=== PATIENT | male | born 1975 | race Caucasian/White ===

== ENCOUNTER → 2020-04-25 09:58 | Outpatient (BNVA) | payer OTHER, SELFPAY | PROVIDERS: PCP Internal Medicine; Visit Provider Nurse Practitioner Family | DX: I25.10 Atherosclerotic heart disease of native coronary artery without angina pectoris (principal); I25.5 Ischemic cardiomyopathy; E78.5 Hyperlipidemia, unspecified; I10 Essential (primary) hypertension; Z95.1 Presence of aortocoronary bypass graft; Z95.810 Presence of automatic (implantable) cardiac defibrillator; Z79.51 Long term (current) use of inhaled steroids; Z79.82 Long term (current) use of aspirin; Z87.891 Personal history of nicotine dependence | CPT/HCPCS: 99214 ==

== ENCOUNTER 2020-06-10 12:53 | Outpatient (REF) | payer OTHER, SELFPAY | END 2020-06-10 12:54 | disposition home or self-care (01) | LOC: HO.LAB 12:53 | PROVIDERS: Visit Provider Internal Medicine | DX: Z20.828 Contact with and (suspected) exposure to other viral communicable diseases (principal) | CPT/HCPCS: C9803; U0003 ==

== ENCOUNTER → 2020-07-21 13:07 | Outpatient (BNVA) | payer OTHER, SELFPAY | PROVIDERS: PCP Internal Medicine; Visit Provider Internal Medicine Cardiovascular Disease ==

== ENCOUNTER → 2020-10-13 09:38 | Outpatient (REF) | payer OTHER, SELFPAY ==
--- NOTE | 2020-10-13 09:42 | CA_ITS ---
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 The visually estimated ejection fraction is between 35-40%. - Evidence suggests grade II (moderate) diastolic dysfunction. - Slight diastolic mitral regurgitation suggestive of elevated filling pressures. Findings Procedure Information Contrast agent, definity, is being given per protocol without apparent complications. Left Ventricle Normal left ventricular cavity size. There is normal left ventricular wall thickness. The left ventricular systolic function is moderately decreased. The visually estimated ejection fraction is between 35-40%. There is moderate global hypokinesis. E/E prime ratio is between 8 and 15 consistent with indeterminate filling pressures. Evidence suggests grade II (moderate) diastolic dysfunction. Right Ventricle Normal right ventricular cavity size. There is low normal right ventricular systolic function. Atria The left atrium is mildly dilated. The right atrium is normal in size. Aortic Valve There is a normal trileaflet aortic valve. There is no aortic valve stenosis. There is no aortic valve regurgitation. Mitral Valve The mitral valve appears normal. There is trace mitral valve regurgitation. There is no mitral valve stenosis. Slight diastolic mitral regurgitation suggestive of elevated filling pressures. Pulmonic Valve The pulmonic valve was not well visualized. Tricuspid Valve Normal tricuspid valve structure. There is trace tricuspid valve regurgitation. The pulmonary artery systolic pressure is normal. Great Vessels The aortic annulus, sinuses of valsalva, and asc aorta are normal in size. Venous The inferior vena cava is normal in size and collapses greater than 50% with inspiration. Pericardium/Pleural There is no evidence of pericardial effusion. Prior Study Comparison Changes noted compared to prior study dated: 08/22/2019. Inferior segments described to be akinetic in the prior study. In current study, appears rather globally hypokinetic. Measurements 2D Linear Measurements IVSd: 0.94 0.6-0.9/0.6-1.0 cm LVIDd: 4.54 3.9-5.3/4.2-5.9 cm LVIDd Index: 2.26 2.4-3.2/2.2-3.1 cm/m2 LVIDs: 3.70 2.0-3.6 cm LVPWd: 1.04 0.7-1.1 cm Ao Root: 3.30 2.1-3.5 cm LA Diam: 3.50 2.7-3.8/3.0-4.0 cm LAIDs Index: 1.74 1.5-2.3 cm/m2 LV Mass: 190.54 67-162/88-224 g LV Mass Index: 94.79 43-95/49-115 g/m2 LVOT Diam: 2.00 3.0+(-)1.3 cm 2D Systolic Function EF 4C: 39.60 >55% EF 2C: 47.20 >55% EF BiP: 40.70 >55% Mitral Valve MV Pk E: 1.12 MV PK A: 0.53 MV Decel Time: 180.00 E/A: 2.10 E'Lateral: 11.50 E'Medial: 6.19 E/E' Med: 18.10 E/E' Lat: 9.70 PHT: 53.00 MVA PHT: 4.15 Decel Howard: 6.23 Aortic Valve AoV Pk Teja: 1.32 AoV Mn Teja: 0.89 AoV VTI: 0.30 AoV Pk Grad: 7.00 Aov Mn Grad: 4.00 RADHA Cont.VTI: 2.16 LVOT LVOT Pk Teja: 0.87 LVOT Mn Teja: 0.61 LVOT VTI: 0.21 LVOT Pk Grad: 3.00 LVOT Mn Grad: 2.00 LVOT Diam: 2.00 LVOT Area: 3.14 Diastolic Function MV Pk E: 1.12 MV Pk A: 0.53 E/A: 2.10 E'Medial: 6.19 E/E' Med: 18.10 E' Laterial: 11.50 E/E' Lat: 9.70 Tricuspid Valve TR Pk Teja: 2.40 TR Pk Grad: 23.00 RA Press: 3.00 RVSP: 26.00 Great Vessels Aorta Ao Root-2D: 3.30 2.0-3.7 cm Ao Asc: 3.20 2.1-3.4 cm Ao Arch: 2.70 Updated in Other Vendor System with Status of Final Bautista Aguila MD electronically signed on 10/13/2020 11:09:38 AM with status of Final
== END ==
LOC: HO.CARD 09:38
PROVIDERS: PCP Internal Medicine; Visit Provider Nurse Practitioner Family
DX: I25.5 Ischemic cardiomyopathy (principal)
CPT/HCPCS: 93306; Q9957

== ENCOUNTER → 2020-10-24 10:29 | Outpatient (BNVA) | payer OTHER, SELFPAY | PROVIDERS: PCP Internal Medicine; Visit Provider Nurse Practitioner Family | DX: I25.10 Atherosclerotic heart disease of native coronary artery without angina pectoris (principal); I10 Essential (primary) hypertension; I25.5 Ischemic cardiomyopathy; E78.5 Hyperlipidemia, unspecified; Z95.1 Presence of aortocoronary bypass graft; Z95.810 Presence of automatic (implantable) cardiac defibrillator | CPT/HCPCS: 99212 ==

== ENCOUNTER 2021-02-03 16:39 | Inpatient (IN) | payer OTHER, SELFPAY ==
--- NOTE | ~2021-02-03 | XR_ITS ---
EXAMINATION: XR SKELETAL SURVEY CLINICAL INFORMATION: Monoclonal protein COMPARISON: None TECHNIQUE: Skeletal survey FINDINGS: Lateral view of the skull does not demonstrate any abnormal lytic or sclerotic lesions. Visualized paranasal sinuses unremarkable. PA film of the chest demonstrates patient is status post median sternotomy. Pacemaker/defibrillator seen from a parasternal approach with power pack along the left lower chest/upper abdominal wall. Right hemithorax unremarkable. There is again noted to be some pleural soft tissue density with scarring and partially loculated pleural effusion. No pneumothorax is seen. Lateral cervical spine study does not demonstrate any abnormal lytic or sclerotic lesions. No abnormal prevertebral soft tissue swelling is seen. There is narrowing of the C5-C6 disc space with marginal spurring. AP and lateral views of the thoracic spine do not demonstrate any evidence of acute fracture. No destructive bony lesions are identified. No lytic or sclerotic lesions. Status post median sternotomy and pacemaker/defibrillator placement. AP and lateral views of the lumbar spine do not demonstrate any evidence of acute fracture, spondylolisthesis, or spondylolysis. There is sacralization of the right side of L5. There is some mild irregularity about the superior endplate of L4 as well as Schmorl's nodes at multiple levels. Pedicles are intact. No destructive lytic or sclerotic lesion. Facet arthropathy is seen at the L4-L5 level. AP film of the pelvis does not demonstrate any evidence of acute fracture or diastases. No destructive bony lesions identified. Sacroiliac joints unremarkable. Sacralization right side of L5. Hip joint spaces maintained. Single view of the right humerus does not demonstrate any evidence of acute fracture or dislocation. No abnormal lytic or sclerotic lesions identified. Glenohumeral joint appears unremarkable. Single view of the left humerus does not demonstrate any evidence of acute fracture or dislocation. No abnormal lytic or sclerotic lesions identified. Single view of the right forearm does not demonstrate any evidence of acute fracture or dislocation. No abnormal sclerotic or lytic lesions. Prominent vascular calcifications are seen. Single view of the left forearm does not demonstrate any evidence of acute fracture or dislocation. No lytic or sclerotic lesions. Vascular calcifications present. AP view of the right femur does not demonstrate any evidence of acute fracture or dislocation. Hip joint spaces maintained. No abnormal lytic or sclerotic lesions. Single view of the left femur does not demonstrate any evidence of acute fracture or dislocation. No abnormal lytic or sclerotic lesions. Single AP view of the right lower leg does not demonstrate any evidence of acute fracture or dislocation. No abnormal lytic or sclerotic lesions. AP view of the left lower extremity does not demonstrate evidence of acute fracture or dislocation. No abnormal lytic or sclerotic lesions. XR/XR bone survey IMPRESSION: No abnormal lytic or sclerotic lesions identified on skeletal survey.
--- NOTE | ~2021-02-03 | CT_ITS ---
EXAMINATION CT CHEST, ABDOMEN AND PELVIS WITH CONTRAST CLINICAL INFORMATION: Right lower quadrant pain COMPARISON: Report from CT abdomen/pelvis dated 08/17/2009 TECHNIQUE: Multidetector volumetric CT imaging of the chest, abdomen and pelvis was obtained after the administration of 100 mL of intravenous Omnipaque 300 without immediate adverse reactions. Coronal and sagittal reformats were reviewed. This CT examination was performed using dose optimization techniques as appropriate, variously including the following: *Automated exposure control *Adjustment of mA and/or kV according to patient size (this includes techniques or standardized protocols for targeted exams where dose is matched to indication/reason for exam; i.e. extremities or head) *Use of iterative reconstruction technique DLP: 994 mGy-cm. FINDINGS: CHEST LUNGS/PLEURA: There is peripheral parenchymal consolidation within the inferolateral left upper lobe with air bronchograms. There is rounded pleural-parenchymal scarring within the left lower lobe posteriorly compatible with round atelectasis. There is a chronic associated small loculated left pleural effusion. There is a 4 mm subpleural nodule within the left upper lobe. There are couple additional pulmonary micronodules which are of doubtful clinical significance. Minimal paraseptal emphysema present within the upper lobes bilaterally. There are mild diffuse bronchial wall thickening. No bronchiectasis. MEDIASTINUM/DAVID: Triple vessel coronary calcifications are present, status post coronary artery bypass grafting. No pericardial effusion. Shotty mediastinal lymph nodes approach 1 cm short axis, favor reactive. CHEST WALL/AXILLA: Subcutaneous cardioverter/defibrillator generator subjacent to the latissimus dorsi, with left parasternal lead subjacent to the pectoralis major musculature. No axillary adenopathy. ABDOMEN/PELVIS HEPATOBILIARY: Liver normal in size, contour and morphology. Mild hepatic steatosis. No suspicious lesions. No intra or extrahepatic biliary dilation. Cholecystectomy. PANCREAS: Unremarkable. SPLEEN: Unremarkable. ADRENAL GLANDS: Unremarkable. KIDNEYS, URETERS AND BLADDER: Kidneys normal in size, axis and morphology demonstrating symmetric enhancement. No hydronephrosis or urinary calculi. Ureters normal in course and caliber. Bladder grossly unremarkable.. GASTROINTESTINAL TRACT: No bowel related abnormalities. PELVIC VISCERA: Unremarkable. LYMPH NODES: No lymphadenopathy. PERITONEUM/BODY WALL: Injection granulomas present within the ventral abdominal subcutaneous fat. No ascites. No peritoneal implants. No hernias. VASCULAR STRUCTURES: Aorta is atherosclerotic. OSSEOUS STRUCTURES No acute or suspicious osseous abnormalities. CT/CT abdomen pelvis wo con IMPRESSION: * Coalescent parenchymal consolidation present within the inferolateral left upper lobe, statistically related to a bronchopneumonia, however organizing pneumonia could also have this appearance. * Chronic round atelectasis within the left lower lobe accompanied by a small loculated pleural effusion. * Reactive mediastinal lymph nodes. * No acute findings within the abdomen or pelvis. * Hepatic steatosis.
--- NOTE | ~2021-02-03 | XR_ITS ---
EXAMINATION: XR CHEST CLINICAL INFORMATION: SOB COMPARISON: Chest 02/04/2021 TECHNIQUE: Frontal view of the chest was obtained. FINDINGS: The lungs are well-expanded with moderate consolidation in left upper lobe and lateral segment left lower lobe. The left upper lobe and the right lung remains expanded and clear. The heart size is normal. Left-sided cardioverter/defibrillator generator with a left parasternal subcutaneous bleed is unchanged. No gross bony abnormality seen. There are median sternotomy sutures from previous CABG. XR/XR chest 1V IMPRESSION: No significant change in moderate opacity/consolidation along the left upper lobe lateral segment and left lower lobe lateral segment. There is evidence of previous CABG and a defibrillator generator along the left chest wall.
--- NOTE | ~2021-02-03 | XR_ITS ---
EXAMINATION: XR CHEST CLINICAL INFORMATION: Evaluate for CHF versus progressive pneumonia COMPARISON: 02/05/2021 TECHNIQUE: 2 views of the chest were obtained. FINDINGS: Persistent left-sided opacity. There is increased gestational markings in the lungs here. Findings suggest superimposed vascular congestion. Left-sided effusion is once again seen. Trace right-sided fluid. XR/XR chest 2V IMPRESSION: Persistent left midlung opacity and left effusion. There is now increased interstitial markings in the lungs and this suggests an element of vascular congestion/early CHF which is superimposed
--- NOTE | ~2021-02-03 | XR_ITS ---
EXAMINATION: XR CHEST CLINICAL INFORMATION: Shortness of breath COMPARISON: CT chest dated 02/03/2021 TECHNIQUE: Frontal view of the chest was obtained. XR/XR chest 1V FINDINGS/IMPRESSION: Again seen is consolidation within the lateral left upper lobe and left lung base as better seen on the recent CT. Left chest wall cardioverter/defibrillator generator with left parasternal subcutaneous lead redemonstrated. Right lung clear. No pleural effusion on the right. No pneumothorax.
--- NOTE | ~2021-02-03 | CT_ITS ---
EXAMINATION: CT HEAD WITHOUT CONTRAST CLINICAL INFORMATION: Headache COMPARISON: 02/12/2015 TECHNIQUE: Contiguous axial imaging was performed from the skull base to vertex without intravenous administration of contrast. This CT examination was performed using dose optimization techniques as appropriate, variously including the following: *Automated exposure control *Adjustment of mA and/or kV according to patient size (this includes techniques or standardized protocols for targeted exams where dose is matched to indication/reason for exam; i.e. extremities or head) *Use of iterative reconstruction technique DLP: 692 mGy-cm FINDINGS: There is no evidence of acute intracranial hemorrhage or territorial infarction. No abnormal mass effect or midline shift is seen. Astudillo to white matter differentiation is well preserved. No extra-axial fluid collections are identified. The ventricles are normal in size. There is no abnormal attenuation within the brain parenchyma. The osseous structures and soft tissues are normal. The mastoid air cells and visualized portions of the paranasal sinuses are well aerated. CT/CT head/brain wo con IMPRESSION: No acute intracranial pathology.
[2021-02-03 17:14] VITALS: BP 115/67; PULSE 92; RESP 20; TEMP 39.1; O2SAT 97; BMI 31.0
[2021-02-03] MEDS: Acetaminophen 325 MG TABLET 650 MG PO ×2 (17:27→23:02)
[2021-02-03] MEDS: Ondansetron ODT 4 MG TAB.RAPDIS TRANSLINGU (17:27)
[2021-02-03 20:26] LABS: MANUAL DIFF FLAG NO
[2021-02-03 20:27] LABS: Basophils Percent Auto 0.2 % (0-2); Hematocrit 29.2 % (42-52); Hemoglobin 9.8 g/dl (14.0-18.0); Imm Gran Abs Auto 0.09 X10*3/uL (0.00-0.03); Imm Gran Pct Auto 0.7 % (0.0-0.4); Mean Corpuscular HGB Conc 33.6 g/dl (31.0-36.0); Mean Corpuscular Hemoglobin 27.6 pg (27.0-33.0); Mean Corpuscular Volume 82.3 fL (80-98); Mean Platelet Volume 10.1 fL (9.4-12.4); Monocytes Percent Auto 7.7 % (2-11); Neutrophils Absolute Auto 10.6 X10*3/uL (2.0-8.3); Neutrophils Percent Auto 83.4 % (45-73); Platelet Count 289 X10*3/uL (160-400); Red Blood Count 3.55 X10*6/uL (4.60-5.80); Red Cell Distribution Width 14.1 % (11.0-16.0); White Blood Count 12.7 X10*3/uL (4.8-10.8)
[2021-02-03 20:32] LABS: COVID-19 Test Negative (Negative); IDNOW Serial# 08D9AD1C
[2021-02-03 20:51] LABS: Anion Gap 17 (12-20); Blood Urea Nitrogen 43 mg/dL (9-16); Calcium 9.6 mg/dL (8.4-10.2); Carbon Dioxide 27 mmol/L (22-29); Chloride 90 mmol/L (96-108); Creatinine Clr Calc Pharmacy 29.7; Estimated Glomerular Filt Rate 20; Glucose Random 261 mg/dL (60-115); Potassium 4.4 mmol/L (3.3-5.1); Sodium 130 mmol/L (135-145)
--- NOTE | 2021-02-03 21:33 | ED_ITS ---
HPI - Fever General Chief Complaint: Fever Stated Complaint: fever,vomiting Time Seen by Provider: 02/03/21 21:33 Source: patient Mode of arrival: ambulatory Limitations: no limitations History of Present Illness HPI Narrative: Patient complaining of fever headache chills body aches for last 4 days on arrival temperature was 102.3 degrees vomited about 15 times. Also complaining of abdominal pain pain in right lower quadrant since yesterday. Patient was discharged from [facility] on 01/19 for acute on chronic CHF left-sided pleural effusion. Patient does have a significant history of diabetes, coronary artery disease status post CABG x2, CHF with ejection fraction 25-35%, AICD, hypertension, hyperlipidemia. Patient had loculated left pleural effusion status post IR guided left chest tube placement on 01/12 fluid analysis was extubated cultures were negative cytology negative. Since discharge 01/19 patient was doing better just got sick for last 4 days got worse yesterday. Related Data Home Medications Medication Instructions Recorded Confirmed albuterol sulfate 90 mcg/actuation 2 puff INHALATION Q4H PRN 04/25/20 02/04/21 aerosol inhaler amitriptyline 25 mg tablet 25 mg PO BEDTIME 04/25/20 02/04/21 aspirin 81 mg tablet,delayed 81 mg PO DAILY 04/25/20 02/04/21 release atorvastatin 80 mg tablet 80 mg PO BEDTIME 04/25/20 02/04/21 clopidogrel 75 mg tablet 75 mg PO DAILY 04/25/20 02/04/21 docusate sodium 100 mg capsule 100 mg PO BID 04/25/20 02/04/21 gabapentin 300 mg capsule 300 mg PO DAILY 04/25/20 02/04/21 (Neurontin) insulin glargine 100 unit/mL (3 36 unit SUBCUT QAM ml 04/25/20 02/04/21 mL) subcutaneous pen (Lantus Solostar U-100 Insulin) pantoprazole 40 mg tablet,delayed 40 mg PO DAILY 04/25/20 02/04/21 release sertraline 25 mg tablet 100 mg PO DAILY 04/25/20 02/04/21 sitagliptin 25 mg tablet 25 mg PO DAILY 04/25/20 02/04/21 azelastine 137 mcg (0.1 %) nasal 2 spray INTRANASAL BID 02/04/21 02/04/21 spray aerosol fenofibrate nanocrystallized 145 1 tab PO DAILY 02/04/21 02/04/21 mg tablet fluticasone 250 mcg-salmeterol 50 1 inh INHALATION Q12H 02/04/21 02/04/21 mcg/dose blistr powdr for inhalation gabapentin 300 mg capsule 600 mg PO BEDTIME 02/04/21 02/04/21 insulin lispro 100 unit/mL 10 - 15 unit SUBCUT TID 02/04/21 02/04/21 subcutaneous pen (Humalog KwikPen (U-100) Insulin) pen needle, diabetic 31 gauge x 02/04/21 02/04/21 5/16 (BD Ultra-Fine Short Pen Needle) tizanidine 4 mg tablet 1 tab PO BEDTIME PRN 02/04/21 02/04/21 torsemide 20 mg tablet 3 tab PO BID 02/04/21 02/04/21 Previous Rx's Medication Instructions Recorded carvedilol 12.5 mg tablet 12.5 mg PO BID 90 Days #180 tab 07/28/20 Allergies Allergy/AdvReac Type Severity Reaction Status Date / Time egg [EGG] Allergy Severe NAUSEA, Verified 10/24/20 10:40 ITCHY THROAT meperidine [From DEMEROL] Allergy Unknown AGITATION Verified 10/24/20 10:40 Review of Systems Review of Systems: Constitutional : No Weight loss, ++ Fever, No Chills ENT/Mouth : No sore throat, No Rhinorrhea Eyes: No Eye Pain, No Swelling Cardiovascular : No Chest Pain, no palpitations Respiratory : No Cough, No Sputum, no shortness of breath Gastrointestinal : ++ Nausea, ++ Vomiting, No Diarrhea, ++ abdominal Pain, no black stools Genitourinary : No Dysuria, No Urinary Frequency Musculoskeletal : No joint pain, No Myalgias, No Joint Swelling Skin : No Skin Lesions, No rash Neuro : No Weakness, No Numbness, No Dizziness, No Headache Psych : No Anxiety/Panic, No Depression Heme/Lymph: No Bruising, No Lymphadenopathy Endocrine : No Polyuria, No Polydipsia All other systems reviewed and are negative PMFSH Past Medical History Medical History CAD (coronary artery disease) Diabetes mellitus HLD (hyperlipidemia) HTN (hypertension) ICD (implantable cardioverter-defibrillator) in place Ischemic cardiomyopathy Surgical History Hx of cardiac cath (~2017) S/P CABG x 2 (~02/2019) Family History Family History Father No problems noted. Mother No problems noted. Social History Social History Household Members: Spouse Housing: House Do you presently have visiting nurse or other home services: No Alcohol intake: never Patient Tobacco Use Status: Never used Tobacco Smoked in Last 30 Days: No Use of substances other than those prescribed or required for medical reasons: Yes Substance Use Type: Marijuana Substance Use Frequency: Occasionally Have you been hit, kicked, punched, or otherwise hurt by someone within the past year? If so, by whom?: No Do you feel safe in your current relationship?: Yes Is there a partner from a previous relationship who is making you feel unsafe now?: No Are you made to feel afraid or neglected: No Advance Directives: No Advance Directives Information Provided: Yes Do you have thoughts of harming others: None Do you have a plan to hurt others: No Plan Recently lost weight without trying: No Poor oral hygiene: No Physical Exam Vital Signs: Vital Signs: Last Vital Signs Temp 100.0 F 02/04/21 01:00 Pulse 94 02/04/21 04:22 Resp 19 02/04/21 04:22 BP 130/79 02/04/21 04:22 Pulse Ox 99 02/04/21 03:48 Body Mass Index 31.0 Appearance: Alert. Oriented X3. In moderate distress distress. Eyes: PERRLA, no pallor or icterus ENT: Pharynx normal. Oral Mucosa moist Neck: Normal inspection. Neck supple. CVS: Normal heart rate and rhythm. Pulses normal. Respiratory: No respiratory distress. Equal air entry bilateral, no wheezi ng/rales/rhonchi Abdomen: Soft and deep tenderness right lower quadrant , no rebound tenderness or guarding. Bowel sounds are present, no mass palpable, no CVA tenderness Skin: Skin warm and dry. Normal skin color. Normal skin turgor. Extremities: No lower extremity edema. No calf tenderness Neuro: Oriented X 3. No motor deficit. No sensory deficit.No cerebellar signs , cranial nerves II-XII intact MDM - Fever MDM Narrative Medical decision making narrative: Patient with fever with left pneumonia with loculated pleural effusion likely getting worse from previous admission at [facility]. Will admit patient for IV antibiotic and further workup will gives Zosyn and vancomycin Medical Records Attestation: I reviewed the patient's medical records. Lab Data Attestation: I reviewed the patient's lab results. Result diagrams: 02/04/21 04:09 02/04/21 04:09 Labs: Lab Results 02/03/21 02/03/21 02/03/21 Range/Units 20:06 20:18 20:18 WBC 12.7 H (4.8-10.8) X10*3/uL RBC 3.55 L (4.60-5.80) X10*6/uL Hgb 9.8 L (14.0-18.0) g/dl Hct 29.2 L (42-52) % MCV 82.3 (80-98) fL MCH 27.6 (27.0-33.0) pg MCHC 33.6 (31.0-36.0) g/dl RDW 14.1 (11.0-16.0) % Plt Count 289 (160-400) X10*3/uL MPV 10.1 (9.4-12.4) fL Immature Gran % (Auto) 0.7 H (0.0-0.4) % Neut % (Auto) 83.4 H (45-73) % Lymph % (Auto) 8.0 L (20-40) % Hampton % (Auto) 7.7 (2-11) % Eos % (Auto) 0.0 (0-4) % Baso % (Auto) 0.2 (0-2) % Lymph # (Auto) 1.0 L (1.2-4.9) X10*3/uL [place] # (Auto) 1.0 (0.1-1.2) X10*3/uL Eos # (Auto) 0.0 (0.0-0.4) X10*3/uL Baso # (Auto) 0.0 (0.0-0.2) X10*3/uL Abs Immat Gran (auto) 0.09 H (0.00-0.03) X10*3/uL Absolute Neuts (auto) 10.6 H (2.0-8.3) X10*3/uL Absolute Nucleated RBC 0.000 (0.0-0.012) X10*3/uL Nucleated RBC % (auto) 0.0 (0.0-0.2) /100WBC Sodium 130 L (135-145) mmol/L Potassium 4.4 (3.3-5.1) mmol/L Chloride 90 L (96-108) mmol/L Carbon Dioxide 27 (22-29) mmol/L Anion Gap 17 (12-20) BUN 43 H (9-16) mg/dL Creatinine 3.32 H (0.5-1.4) mg/dL Estim Creat Clear Calc 29.7 Estimated GFR 20 Random Glucose 261 H (60-115) mg/dL Lactic Acid (0.5-2.0) mmol/L Lactic Acid Fup @ 2Hr Calcium 9.6 (8.4-10.2) mg/dL Total Bilirubin 0.4 (0.0-1.0) mg/dL Direct Bilirubin 0.2 (0.0-0.5) mg/dL AST 33 (5-37) U/L ALT 16 (0-40) U/L Alkaline Phosphatase 107 (39-117) U/L Total Protein 9.1 H (6.5-8.0) g/dL Albumin 4.2 (3.5-5.0) g/dL Lipase 48 (8-78) U/L COVID-19 (KATE) Negative (Negative) COVID-19 Clin Com See Note 02/03/21 02/04/21 02/04/21 Range/Units 22:31 01:16 01:46 WBC (4.8-10.8) X10*3/uL RBC (4.60-5.80) X10*6/uL Hgb (14.0-18.0) g/dl Hct (42-52) % MCV (80-98) fL MCH (27.0-33.0) pg MCHC (31.0-36.0) g/dl RDW (11.0-16.0) % Plt Count (160-400) X10*3/uL MPV (9.4-12.4) fL Immature Gran % (Auto) (0.0-0.4) % Neut % (Auto) (45-73) % Lymph % (Auto) (20-40) % Hampton % (Auto) (2-11) % Eos % (Auto) (0-4) % Baso % (Auto) (0-2) % Lymph # (Auto) (1.2-4.9) X10*3/uL Hampton # (Auto) (0.1-1.2) X10*3/uL Eos # (Auto) (0.0-0.4) X10*3/uL Baso # (Auto) (0.0-0.2) X10*3/uL Abs Immat Gran (auto) (0.00-0.03) X10*3/uL Absolute Neuts (auto) (2.0-8.3) X10*3/uL Absolute Nucleated RBC (0.0-0.012) X10*3/uL Nucleated RBC % (auto) (0.0-0.2) /100WBC Sodium (135-145) mmol/L Potassium (3.3-5.1) mmol/L Chloride (96-108) mmol/L Carbon Dioxide (22-29) mmol/L Anion Gap (12-20) BUN (9-16) mg/dL Creatinine (0.5-1.4) mg/dL Estim Creat Clear Calc Estimated GFR Random Glucose (60-115) mg/dL Lactic Acid 2.8 H* 1.8 (0.5-2.0) mmol/L Lactic Acid Fup @ 2Hr Cancelled Calcium (8.4-10.2) mg/dL Total Bilirubin (0.0-1.0) mg/dL Direct Bilirubin (0.0-0.5) mg/dL AST (5-37) U/L ALT (0-40) U/L Alkaline Phosphatase (39-117) U/L Total Protein (6.5-8.0) g/dL Albumin (3.5-5.0) g/dL Lipase (8-78) U/L COVID-19 (KATE) (Negative) COVID-19 Clin Com Discharge Plan Discharge Clinical Impression: Pneumonia, Sepsis, Renal failure (ARF), acute on chronic Interventions: Admission Worksheet (ED) Last Done: 02/04/21 06:06 Discharge Date/Time: 02/04/21 06:06
[2021-02-03 21:59] LABS: Alanine Aminotransferase 16 U/L (0-40); Albumin Level 4.2 g/dL (3.5-5.0); Alkaline Phosphatase 107 U/L (39-117); Aspartate Amino Transferase 33 U/L (5-37); Bilirubin Direct 0.2 mg/dL (0.0-0.5); Bilirubin Total 0.4 mg/dL (0.0-1.0); Lipase 48 U/L (8-78); Total Protein 9.1 g/dL (6.5-8.0)
[2021-02-03 22:12] VITALS: BP 123/66; PULSE 94; RESP 20; TEMP 39.5; O2SAT 98
[2021-02-03] MEDS: 0.9 % Sodium Chloride 1,000 ML 999 ML IVCONT (23:01)
[2021-02-03] MEDS: Morphine Sulfate 4 MG/ML CARTRIDGE IVPUSH (23:01)
[2021-02-03] MEDS: Piperacillin Sodium/Tazobactam 3.375 GM in 0.9 % Sodium Chloride 50 ML IV (23:02)
[2021-02-03 23:09] LABS: Lactic Acid 2.8 mmol/L (0.5-2.0)
[2021-02-03 23:30] VITALS: BP 121/64; PULSE 96; RESP 18
[2021-02-04] VITALS (16 sets, daily range): BP systolic 101–154; BP diastolic 54–91; PULSE 85–100; RESP 16–20; TEMP 37.3–38.3; O2SAT 93–99; BMI 30.4
[2021-02-04 00:47] LABS: Reflex Lactate? Lactic Acid Added
[2021-02-04] MEDS: vancomycin HCL 1,000 MG in 0.9 % Sodium Chloride 250 ML 270 MG IV (01:15)
[2021-02-04 02:11] LABS: Lactic Acid 1.8 mmol/L (0.5-2.0)
--- NOTE | 2021-02-04 02:45 | PM.IMHP ---
History of Present Illness Date of Service: 02/04/21 Chief Complaint: Fever 45-year-old male with a past medical history of hypertension, hyperlipidemia, diabetes, coronary artery status post CABG x2, CHF with EF of 30-35%; recent admission to the [facility] for pneumonia/lobular portal effusion status post chest tube placement; presented to the hospital today with a chief complaint of increased shortness of breath and cough. Also complains of having fevers, headaches since last Tuesday. Denies any blurry visions. Mentions that he took Tylenol with no significant improvement in his fevers. Also had noticed increased generalized weakness and shortness of breath. Complains of cough. Patient complained of multiple episodes of vomiting; denies any blood in the vomitus. Denies any abdominal discomfort. Denies any chest pain or palpitations. Patient denies any neck stiffness. Review of all other systems is negative except mentioned above ER course: Per ER team patient noted to have pneumonia with small effusion on the CT scan; CT abdomen showed no acute findings. Patient was given IV vancomycin and Zosyn. Patient also received 1 L of IV fluids. Noted to have MAURI on CKD. Admitted to the hospital for further management. [facility] Medical History CAD (coronary artery disease) Diabetes mellitus HLD (hyperlipidemia) HTN (hypertension) ICD (implantable cardioverter-defibrillator) in place Ischemic cardiomyopathy Family History Father No problems noted. Mother No problems noted. Surgical History Hx of cardiac cath (~2017) S/P CABG x 2 (~02/2019) Social History Household Members: Spouse Housing: House Do you presently have visiting nurse or other home services: No Alcohol intake: never Patient Tobacco Use Status: Never used Tobacco Substance Use Type: Marijuana service: No Current occupational status: unemployed Meds Allergies Allergy/AdvReac Type Severity Reaction Status Date / Time egg [EGG] Allergy Severe NAUSEA, Verified 10/24/20 10:40 ITCHY THROAT meperidine [From DEMEROL] Allergy Unknown AGITATION Verified 10/24/20 10:40 Active Medications: Current Medications Generic Name Dose Route Start Last Admin Trade Name Art PRN Reason Stop Dose Admin Acetaminophen 650 mg 02/04/21 02:34 Acetaminophen 325 Mg Tablet PO Q6H PRN Pain, Mild (Pain Scale 1-3) Amitriptyline HCl 25 mg 02/04/21 21:00 Amitriptyline Hcl 25 Mg Tablet PO BEDTIME [facility], [facility] Aspirin 81 mg 02/04/21 09:00 Aspirin Enteric Coated 81 Mg Tablet.Dr PO DAILY [facility] Atorvastatin Calcium 80 mg 02/04/21 21:00 Atorvastatin Calcium 80 Mg Tablet PO BEDTIME [facility] Azelastine HCl 2 spray 02/04/21 09:00 Azelastine Hcl Nasal 137 Mcg/[place] 30 Ml NOSTRIL-B BID [facility]1983 Carvedilol 12.5 mg 02/04/21 09:00 Carvedilol 12.5 Mg Tablet PO BID [facility] Protocol Clopidogrel Bisulfate 75 mg 02/04/21 09:00 Clopidogrel Bisulfate 75 Mg Tablet PO DAILY [facility] Dextrose 25 gm 02/04/21 02:40 Dextrose 50 % 25 Gm/50 Ml Vial IVPUSH Q15M PRN per Hypoglycemia Standing Ord. Protocol Docusate Sodium 100 mg 02/04/21 09:00 Docusate Sodium 100 Mg Capsule PO BID [facility] Gabapentin 600 mg 02/04/21 21:00 Gabapentin 300 Mg Capsule PO BEDTIME [facility] Gabapentin 300 mg 02/04/21 09:00 Gabapentin 300 Mg Capsule PO DAILY [facility] Glucose 15 gm 02/04/21 02:40 Glucose Gel 15 Gm Gel..Gram. PO Q15M PRN per Hypoglycemia Standing Ord. Protocol Hydromorphone HCl 0.5 mg 02/04/21 02:34 Hydromorphone Hcl 0.5 Mg/0.5 Ml Syringe IVPUSH Q4H PRN Pain, Severe (Pain Scale 7-10) Vancomycin HCl 1,000 mg/ 270 mls @ 270 mls/hr 02/04/21 02:45 Sodium Chloride IV Q12H [facility] Piperacillin Sod/Tazobactam 50 mls @ 100 mls/hr 02/04/21 02:45 Sod 3.375 gm/ Sodium Chloride IV Q8H [facility]1983 Insulin Human Lispro 0 unit 02/04/21 07:30 Insulin Lispro 100 Unit/Ml 3 Ml Vial SUBCUT QIDACHS [facility] Protocol Melatonin 6 mg 02/04/21 02:34 Melatonin 3 Mg Tablet PO BEDTIME PRN Insomnia Non-Formulary Medication 1 tab 02/04/21 09:00 Fenofibrate Nanocrystallized PO DAILY [facility] Non-Formulary Medication 1 inhalation 02/04/21 02:45 Fluticasone Propion-Salmeterol INHALE Q12H [facility]1983 Non-Formulary Medication 40 mg 02/04/21 09:00 Pantoprazole PO DAILY [facility] Pharmacy Consult 1 each 02/04/21 00:00 Consult Rx Vancomycin Dosing MISCELLANE DAILY PRN Consult order Pharmacy Consult 1 each 02/04/21 02:34 Consult Rx Vancomycin Dosing MISCELLANE DAILY PRN Consult order Sertraline HCl 100 mg 02/04/21 09:00 Sertraline Hcl 50 Mg Tablet PO DAILY [facility] Sodium Chloride 3 ml 02/04/21 08:00 0.9 % Sodium Chloride Flush 3 [facility] Tizanidine HCl 4 mg 02/04/21 02:41 Tizanidine Hcl 4 Mg Tablet PO BEDTIME PRN muscle spasm Home Medications Medication Instructions Recorded Confirmed Last Taken Type albuterol sulfate 90 mcg/actuation 2 puff INHALATION Q4H PRN 04/25/20 02/04/21 Unknown History aerosol inhaler amitriptyline 25 mg tablet 25 mg PO BEDTIME 04/25/20 02/04/21 Unknown History aspirin 81 mg tablet,delayed 81 mg PO DAILY 04/25/20 02/04/21 Unknown History release atorvastatin 80 mg tablet 80 mg PO BEDTIME 04/25/20 02/04/21 Unknown History clopidogrel 75 mg tablet 75 mg PO DAILY 04/25/20 02/04/21 Unknown History docusate sodium 100 mg capsule 100 mg PO BID 04/25/20 02/04/21 Unknown History gabapentin 300 mg capsule 300 mg PO DAILY 04/25/20 02/04/21 Unknown History (Neurontin) insulin glargine 100 unit/mL (3 36 unit SUBCUT QAM ml 04/25/20 02/04/21 Unknown History mL) subcutaneous pen (Lantus Solostar U-100 Insulin) pantoprazole 40 mg tablet,delayed 40 mg PO DAILY 04/25/20 02/04/21 Unknown History release sertraline 25 mg tablet 100 mg PO DAILY 04/25/20 02/04/21 Unknown History sitagliptin 25 mg tablet 25 mg PO DAILY 04/25/20 02/04/21 Unknown History azelastine 137 mcg (0.1 %) nasal 2 spray INTRANASAL BID 02/04/21 02/04/21 Unknown History spray aerosol fenofibrate nanocrystallized 145 1 tab PO DAILY 02/04/21 02/04/21 Unknown History mg tablet fluticasone 250 mcg-salmeterol 50 1 inh INHALATION Q12H 02/04/21 02/04/21 Unknown History mcg/dose blistr powdr for inhalation gabapentin 300 mg capsule 600 mg PO BEDTIME 02/04/21 02/04/21 Unknown History insulin lispro 100 unit/mL 10 - 15 unit SUBCUT TID 02/04/21 02/04/21 Unknown History subcutaneous pen (Humalog KwikPen (U-100) Insulin) pen needle, diabetic 31 gauge x 02/04/21 02/04/21 Unknown History /16 (BD Ultra-Fine Short Pen Needle) tizanidine 4 mg tablet 1 tab PO BEDTIME PRN 02/04/21 02/04/21 Unknown History torsemide 20 mg tablet 3 tab PO BID 02/04/21 02/04/21 Unknown History Physical Exam Vital Signs and Narrative: Vital Signs: Last Vital Signs Temp 100.0 F 02/04/21 01:00 Pulse 89 02/04/21 01:25 Resp 18 02/04/21 01:25 BP 137/81 02/04/21 01:25 Pulse Ox 98 02/04/21 01:25 Body Mass Index 31.0 Gen: Appears be in no acute distress; speaks in full sentences. HEENT: NCAT, Moist mucosa. Neck is supple Pulmonary: Diminished breath sounds on bilateral lower [place]. CVS: Normal S1-S2 Abdomen: BS+, Soft, Nontender Extremities: Warm well perfused Neuro: Alert and awake. Grossly nonfocal; no meningeal signs noted Results Labs CBC and Chem 7: 02/11/21 07:22 02/12/21 06:00 Labs: Laboratory Results - last 24 hr 02/03/21 02/03/21 02/03/21 20:06 20:18 20:18 MCV 82.3 MCH 27.6 MCHC 33.6 RDW 14.1 Plt Count 289 MPV 10.1 Immature Gran % (Auto) 0.7 H Neut % (Auto) 83.4 H Lymph % (Auto) 8.0 L [place] % (Auto) 7.7 Eos % (Auto) 0.0 Baso % (Auto) 0.2 Lymph # (Auto) 1.0 L [place] # (Auto) 1.0 Eos # (Auto) 0.0 Baso # (Auto) 0.0 Abs Immat Gran (auto) 0.09 H Absolute Neuts (auto) 10.6 H Absolute Nucleated RBC 0.000 Nucleated RBC % (auto) 0.0 Anion Gap 17 Estim Creat Clear Calc 29.7 Estimated GFR 20 Random Glucose 261 H Lactic Acid Lactic Acid Fup @ 2Hr Calcium 9.6 Total Bilirubin 0.4 Direct Bilirubin 0.2 AST 33 ALT 16 Alkaline Phosphatase 107 Total Protein 9.1 H Albumin 4.2 Lipase 48 COVID-19 (KATE) Negative COVID-19 Clin Com See Note 02/03/21 02/04/21 02/04/21 22:31 01:16 01:46 MCV MCH MCHC RDW Plt Count MPV Immature Gran % (Auto) Neut % (Auto) Lymph % (Auto) [place] % (Auto) Eos % (Auto) Baso % (Auto) Lymph # (Auto) [place] # (Auto) Eos # (Auto) Baso # (Auto) Abs Immat Gran (auto) Absolute Neuts (auto) Absolute Nucleated RBC Nucleated RBC % (auto) Anion Gap Estim Creat Clear Calc Estimated GFR Random Glucose Lactic Acid 2.8 H* 1.8 Lactic Acid Fup @ 2Hr Cancelled Calcium Total Bilirubin Direct Bilirubin AST ALT Alkaline Phosphatase Total Protein Albumin Lipase COVID-19 (KATE) COVID-19 Clin Com Imaging Radiologist's Impressions: Impressions Chest CT 02/03/21 22:08 IMPRESSION: * Coalescent parenchymal consolidation present within the inferolateral left upper lobe, statistically related to a bronchopneumonia, however organizing pneumonia could also have this appearance. * Chronic round atelectasis within the left lower lobe accompanied by a small loculated pleural effusion. * Reactive mediastinal lymph nodes. * No acute findings within the abdomen or pelvis. * Hepatic steatosis. Abdomen/Pelvis CT 02/03/21 22:09 IMPRESSION: * Coalescent parenchymal consolidation present within the inferolateral left upper lobe, statistically related to a bronchopneumonia, however organizing pneumonia could also have this appearance. * Chronic round atelectasis within the left lower lobe accompanied by a small loculated pleural effusion. * Reactive mediastinal lymph nodes. * No acute findings within the abdomen or pelvis. * Hepatic steatosis. Assessment and Plan (1) PNA (pneumonia): Status: Acute 45-year-old male with a past medical history of hypertension, hyperlipidemia, diabetes, coronary artery disease status post CABG, CHF, history of AICD; recent admission to the [facility] for pneumonia/loculated pleural effusion; presented to the hospital with a chief complaint of fever, headache, nausea/vomiting, shortness of breath/cough; noted to have pneumonia. Admitted for further management Headaches: Patient denies any blurry visions; exam nonfocal. No meningeal signs. Neck is supple. CT head showed no acute intracranial process Spoke to ER team for possible LP-mentioned that given no meningeal signs and obvious source of infection/pneumonia deferred LP. Nausea/vomiting: Supportive care. Patient denies any blood in the vomitus. CT abdomen showed no acute intra-abdominal process. Pneumonia: CT chest showed left upper lobe pneumonia and left lower lobe small loculated effusion/mediastinal lymphadenopathy. Continue IV vanc and Zosyn. Id consult Pulmonology consult MAURI on CKD: Patient's creatinine at the time of discharge from [facility] on 01/19/21 was 1.7. Today it is noted to be 3.3. Avoid nephrotoxins. Likely cardiorenal; nephrology consult CHF: Patient has a ejection fraction of 30-35%; patient has AICD. Patient continued on aspirin Plavix Coreg and fenofibrate. Patient was recently discontinued on enalapril secondary to Mauri on CKD. Patient has already increased shortness of breath after receiving 1 L of fluids in the ER. Given 1 dose of IV Lasix. Lasix to be continued in the morning based on renal function. Cardiology consult Diabetes: Will give the patient on insulin sliding scale. Hold Lantus. Given patient is NPO. GERD: Continue PPI A DVT prophylaxis: SCD boots Code status: Full code Quality Stroke Does the patient have a stroke diagnosis?: No VTE Prior VTE?: No VTE Risk Level:: Medical - moderate - high VTE Device Contraindication: N/A - Device Ordered VTE Drug Contraindication: Treatment Not Indicated
[2021-02-04] MEDS: HYDROmorphone HCl 0.5 MG/0.5 ML SYRINGE IVPUSH ×5 (03:08→21:34)
[2021-02-04] MEDS: Furosemide 40 MG/4 ML VIAL IVPUSH (04:23)
[2021-02-04 04:31] LABS: MANUAL DIFF FLAG NO
[2021-02-04 04:34] LABS: Basophils Percent Auto 0.2 % (0-2); Hematocrit 27.2 % (42-52); Hemoglobin 8.8 g/dl (14.0-18.0); Imm Gran Abs Auto 0.11 X10*3/uL (0.00-0.03); Imm Gran Pct Auto 0.8 % (0.0-0.4); Lymphocytes Absolute Auto 0.8 X10*3/uL (1.2-4.9); Lymphocytes Percent Auto 5.9 % (20-40); Mean Corpuscular HGB Conc 32.4 g/dl (31.0-36.0); Mean Corpuscular Hemoglobin 27.2 pg (27.0-33.0); Mean Corpuscular Volume 84.2 fL (80-98); Mean Platelet Volume 11.3 fL (9.4-12.4); Monocytes Absolute Auto 0.9 X10*3/uL (0.1-1.2); Monocytes Percent Auto 6.5 % (2-11); Neutrophils Absolute Auto 11.8 X10*3/uL (2.0-8.3); Neutrophils Percent Auto 86.6 % (45-73); Platelet Count 219 X10*3/uL (160-400); Red Blood Count 3.23 X10*6/uL (4.60-5.80); Red Cell Distribution Width 14.2 % (11.0-16.0); White Blood Count 13.7 X10*3/uL (4.8-10.8)
[2021-02-04 05:10] LABS: Anion Gap 15 (12-20); Blood Urea Nitrogen 42 mg/dL (9-16); Calcium 8.6 mg/dL (8.4-10.2); Carbon Dioxide 27 mmol/L (22-29); Chloride 92 mmol/L (96-108); Creatinine Clr Calc Pharmacy 31.6; Estimated Glomerular Filt Rate 22; Glucose Random 330 mg/dL (60-115); Potassium 4.2 mmol/L (3.3-5.1); Sodium 130 mmol/L (135-145)
[2021-02-04] MEDS: Piperacillin Sodium/Tazobactam 3.375 GM in 0.9 % Sodium Chloride 50 ML IV ×2 (06:42→16:14)
[2021-02-04 08:03] LABS: Glucose, Whole Blood 406 mg/dL (60-115)
[2021-02-04] MEDS: carvediloL 12.5 MG TABLET PO ×2 (08:17→21:39)
[2021-02-04] MEDS: Docusate Sodium 100 MG CAPSULE PO ×2 (08:18→21:39)
[2021-02-04] MEDS: Omeprazole 20 MG CAPSULE.DR PO (08:18)
[2021-02-04] MEDS: Aspirin Enteric Coated 81 MG TABLET.DR PO (08:18)
[2021-02-04] MEDS: Fenofibrate 160 MG TABLET PO (08:19)
[2021-02-04] MEDS: Gabapentin 300 MG CAPSULE PO (08:19)
[2021-02-04] MEDS: Sertraline HCL 50 MG TABLET 100 MG PO (08:19)
[2021-02-04] MEDS: Clopidogrel Bisulfate 75 MG TABLET PO (08:19)
[2021-02-04] MEDS: 0.9 % Sodium Chloride Flush 3 ML SYRINGE IVFLUSH ×3 (08:20→21:39)
[2021-02-04] MEDS: Insulin Lispro 100 UNIT/ML 3 ML VIAL SUBCUT ×3 (08:20→21:40)
--- NOTE | 2021-02-04 09:58 | PM.CNNEP ---
History of Present Illness Reason for Consult Consult date: 02/04/21 Reason for consult: mauri Requesting physician: César Ramirez Chief Complaint Chief complaint: PNA History of Present Illness Narrative: Full RENAL consult dictated MAURI on CKD in setting recurrent pulm infiltrate Orders for w/u MAURI entered Will follow laura with team [facility] Past Medical History Medical History CAD (coronary artery disease) Diabetes mellitus HLD (hyperlipidemia) HTN (hypertension) ICD (implantable cardioverter-defibrillator) in place Ischemic cardiomyopathy Family History Family History Father No problems noted. Mother No problems noted. Surgical History Surgical History Hx of cardiac cath (~2017) S/P CABG x 2 (~02/2019) Social History Social History Household Members: Spouse Housing: House Do you presently have visiting nurse or other home services: No Alcohol intake: never Patient Tobacco Use Status: Never used Tobacco Smoked in Last 30 Days: No Use of substances other than those prescribed or required for medical reasons: Yes Substance Use Type: Marijuana Substance Use Frequency: Occasionally Have you been hit, kicked, punched, or otherwise hurt by someone within the past year? If so, by whom?: No Do you feel safe in your current relationship?: Yes Is there a partner from a previous relationship who is making you feel unsafe now?: No Are you made to feel afraid or neglected: No Advance Directives: No Advance Directives Information Provided: Yes Do you have thoughts of harming others: None Do you have a plan to hurt others: No Plan Recently lost weight without trying: No Poor oral hygiene: No Meds Allergies Allergy/AdvReac Type Severity Reaction Status Date / Time egg [EGG] Allergy Severe NAUSEA, Verified 10/24/20 10:40 ITCHY THROAT meperidine [From DEMEROL] Allergy Unknown AGITATION Verified 10/24/20 10:40 Active Medications: Current Medications Generic Name Dose Route Start Last Admin Trade Name Freq PRN Reason Stop Dose Admin Acetaminophen 650 mg 02/04/21 02:34 Acetaminophen 325 Mg Tablet PO Q6H PRN Pain, Mild (Pain Scale 1-3) Amitriptyline HCl 25 mg 02/04/21 21:00 Amitriptyline Hcl 25 Mg Tablet PO BEDTIME [facility] Aspirin 81 mg 02/04/21 09:00 02/04/21 08:18 Aspirin Enteric Coated 81 Mg Tablet. PO 81 mg DAILY MAGUI Administration Atorvastatin Calcium 80 mg 02/04/21 21:00 Atorvastatin Calcium 80 Mg Tablet PO BEDTIME [facility] Azelastine HCl 2 spray 02/04/21 09:00 02/04/21 08:20 Azelastine Hcl Nasal 137 Mcg/[place] 30 Ml NOSTRIL-B Not Given BID [facility] Carvedilol 12.5 mg 02/04/21 09:00 02/04/21 08:17 Carvedilol 12.5 Mg Tablet PO 12.5 mg BID MAGUI Administration Protocol Clopidogrel Bisulfate 75 mg 02/04/21 09:00 02/04/21 08:19 Clopidogrel Bisulfate 75 Mg Tablet PO 75 mg DAILY MAGUI Administration Dextrose 25 gm 02/04/21 02:40 Dextrose 50 % 25 Gm/50 Ml Vial IVPUSH Q15M PRN per Hypoglycemia Standing Ord. Protocol Docusate Sodium 100 mg 02/04/21 09:00 02/04/21 08:18 Docusate Sodium 100 Mg Capsule PO 100 mg BID MAGUI Administration Fenofibrate 160 mg 02/04/21 09:00 02/04/21 08:19 Fenofibrate 160 Mg Tablet PO 160 mg DAILY MAGUI Administration Fluticasone/Vilanterol 1 puff 02/04/21 09:00 02/04/21 09:39 Fluticasone/Vilanterol 100/25 Blst.W.Dev INHALE Not Given DAILY [facility] Gabapentin 600 mg 02/04/21 21:00 Gabapentin 300 Mg Capsule PO BEDTIME MAGUI Gabapentin 300 mg 02/04/21 09:00 02/04/21 08:19 Gabapentin 300 Mg Capsule PO 300 mg DAILY [facility] Administration Glucose 15 gm 02/04/21 02:40 Glucose Gel 15 Gm Gel..Gram. PO Q15M PRN per Hypoglycemia Standing Ord. Protocol Hydromorphone HCl 0.5 mg 02/04/21 02:34 02/04/21 08:20 Hydromorphone Hcl 0.5 Mg/0.5 Ml Syringe IVPUSH 0.5 mg Q4H PRN Administration Pain, Severe (Pain Scale 7-10) Piperacillin Sod/Tazobactam 50 mls @ 100 mls/hr 02/04/21 07:00 02/04/21 07:13 Sod 3.375 gm/ Sodium Chloride IV Infused Q8H [facility] Infusion Vancomycin HCl 750 mg/ Sodium 265 mls @ 265 mls/hr 02/04/21 20:00 Chloride IV Q24H [facility] Insulin Glargine 36 unit 02/04/21 21:00 Insulin Glargine,Hum.Rec.Anlog 100 Unit/Ml 10 Ml Vial SUBCUT BEDTIME [facility] Insulin Human Lispro 0 - 10 unit 02/04/21 07:30 02/04/21 08:20 Insulin Lispro 100 Unit/Ml 3 Ml Vial SUBCUT 10 unit QIDACHS [facility] Administration Protocol Melatonin 6 mg 02/04/21 02:34 Melatonin 3 Mg Tablet PO BEDTIME PRN Insomnia Omeprazole 20 mg 02/04/21 09:00 02/04/21 08:18 Omeprazole 20 Mg Capsule. PO 20 mg DAILY [facility] Administration Ondansetron HCl 4 mg 02/04/21 03:24 02/04/21 05:01 Ondansetron Hcl 4 Mg/2 Ml Vial IVPUSH 4 mg Q8H PRN Administration Nausea and Vomiting Pharmacy Consult 1 each 02/04/21 02:34 Consult Rx Vancomycin Dosing MISCELLANE DAILY PRN Consult order Sertraline HCl 100 mg 02/04/21 09:00 02/04/21 08:19 Sertraline Hcl 50 Mg Tablet PO 100 mg DAILY [facility] Administration Sodium Chloride 3 ml 02/04/21 08:00 02/04/21 08:20 0.9 % Sodium Chloride Flush 3 Ml Syringe IVFLUSH 3 ml QSHIFT [facility] Administration Tizanidine HCl 4 mg 02/04/21 02:41 Tizanidine Hcl 4 Mg Tablet PO BEDTIME PRN muscle spasm Home Medications Medication Instructions Recorded Confirmed Last Taken Type albuterol sulfate 90 mcg/actuation 2 puff INHALATION Q4H PRN 04/25/20 02/04/21 Unknown History aerosol inhaler amitriptyline 25 mg tablet 25 mg PO BEDTIME 04/25/20 02/04/21 Unknown History aspirin 81 mg tablet,delayed 81 mg PO DAILY 04/25/20 02/04/21 Unknown History release atorvastatin 80 mg tablet 80 mg PO BEDTIME 04/25/20 02/04/21 Unknown History clopidogrel 75 mg tablet 75 mg PO DAILY 04/25/20 02/04/21 Unknown History docusate sodium 100 mg capsule 100 mg PO BID 04/25/20 02/04/21 Unknown History gabapentin 300 mg capsule 300 mg PO DAILY 04/25/20 02/04/21 Unknown History (Neurontin) insulin glargine 100 unit/mL (3 36 unit SUBCUT QAM ml 04/25/20 02/04/21 Unknown History mL) subcutaneous pen (Lantus Solostar U-100 Insulin) pantoprazole 40 mg tablet,delayed 40 mg PO DAILY 04/25/20 02/04/21 Unknown History release sertraline 25 mg tablet 100 mg PO DAILY 04/25/20 02/04/21 Unknown History sitagliptin 25 mg tablet 25 mg PO DAILY 04/25/20 02/04/21 Unknown History azelastine 137 mcg (0.1 %) nasal 2 spray INTRANASAL BID 02/04/21 02/04/21 Unknown History spray aerosol fenofibrate nanocrystallized 145 1 tab PO DAILY 02/04/21 02/04/21 Unknown History mg tablet fluticasone 250 mcg-salmeterol 50 1 inh INHALATION Q12H 02/04/21 02/04/21 Unknown History mcg/dose blistr powdr for inhalation gabapentin 300 mg capsule 600 mg PO BEDTIME 02/04/21 02/04/21 Unknown History insulin lispro 100 unit/mL 10 - 15 unit SUBCUT TID 02/04/21 02/04/21 Unknown History subcutaneous pen (Humalog KwikPen (U-100) Insulin) pen needle, diabetic 31 gauge x 02/04/21 02/04/21 Unknown History /16 (BD Ultra-Fine Short Pen Needle) tizanidine 4 mg tablet 1 tab PO BEDTIME PRN 02/04/21 02/04/21 Unknown History torsemide 20 mg tablet 3 tab PO BID 02/04/21 02/04/21 Unknown History Physical Exam Vital Signs: Last Vital Signs Temp 100.2 F 02/04/21 08:00 Pulse 94 02/04/21 08:17 Resp 18 02/04/21 08:00 BP 130/79 02/04/21 08:17 Pulse Ox 97 02/04/21 08:00 Body Mass Index 30.4 Results Lab Results Result Diagrams: 02/04/21 04:09 02/04/21 04:09 Lab results: Chemistry 02/03/21 02/04/21 20:18 04:09 Sodium 130 L 130 L Potassium 4.4 4.2 Carbon Dioxide 27 27 BUN 43 H 42 H Creatinine 3.32 H 3.12 H Calcium 9.6 8.6 D Hematology 02/03/21 02/04/21 20:18 04:09 WBC 12.7 H 13.7 H Hgb 9.8 L 8.8 L Plt Count 289 219 Procedures Date of Service Date of Service: 02/04/21
[2021-02-04 11:13] LABS: Glucose, Whole Blood 291 mg/dL (60-115)
[2021-02-04 11:56] LABS: MRSA Nasal PCR NEGATIVE (Negative); SA Nasal PCR NEGATIVE (Negative)
--- NOTE | 2021-02-04 12:37 | P.CONCA_ITS ---
History of Present Illness History of Present Illness Date of Service: 02/04/21 Requesting physician: Beltran Guallpa Chief complaint: PNA, CHF Narrative: 45-year-old gentleman who is here for pneumonia. He has background history of coronary artery disease with 2 vessel bypass surgery, cardiomyopathy status post ICD. Last ejection fraction was 30 35%. He recently was admitted at [facility] with pneumonia. He is now presenting with shortness of breath. He was started on antibiotics. He also was noticed to have acute kidney injury. He is denying any orthopnea PND. His main complaint is a headache and back pain. Overall not in significant heart failure right now. [facility] Past Medical History Medical History CAD (coronary artery disease) Diabetes mellitus HLD (hyperlipidemia) HTN (hypertension) ICD (implantable cardioverter-defibrillator) in place Ischemic cardiomyopathy Family History Family History Father No problems noted. Mother No problems noted. Surgical History Surgical History Hx of cardiac cath (~2017) S/P CABG x 2 (~02/2019) Social History Social History Household Members: Spouse Housing: House Do you presently have visiting nurse or other home services: No Alcohol intake: never Patient Tobacco Use Status: Never used Tobacco Smoked in Last 30 Days: No Use of substances other than those prescribed or required for medical reasons: Yes Substance Use Type: Marijuana Substance Use Frequency: Occasionally Have you been hit, kicked, punched, or otherwise hurt by someone within the past year? If so, by whom?: No Do you feel safe in your current relationship?: Yes Is there a partner from a previous relationship who is making you feel unsafe now?: No Are you made to feel afraid or neglected: No Advance Directives: No Advance Directives Information Provided: Yes Do you have thoughts of harming others: None Do you have a plan to hurt others: No Plan Recently lost weight without trying: No Poor oral hygiene: No service: No Current occupational status: unemployed Meds Allergies Allergy/AdvReac Type Severity Reaction Status Date / Time egg [EGG] Allergy Severe NAUSEA, Verified 10/24/20 10:40 ITCHY THROAT meperidine [From DEMEROL] Allergy Unknown AGITATION Verified 10/24/20 10:40 Active Medications: Current Medications Generic Name Dose Route Start Last Admin Trade Name Freq PRN Reason Stop Dose Admin Acetaminophen 650 mg 02/04/21 02:34 Acetaminophen 325 Mg Tablet PO Q6H PRN Pain, Mild (Pain Scale 1-3) Amitriptyline HCl 25 mg 02/04/21 21:00 Amitriptyline Hcl 25 Mg Tablet PO BEDTIME MAGUI Aspirin 81 mg 02/04/21 09:00 02/04/21 08:18 Aspirin Enteric Coated 81 Mg Tablet.Dr PO 81 mg DAILY MAGUI Administration Atorvastatin Calcium 80 mg 02/04/21 21:00 Atorvastatin Calcium 80 Mg Tablet PO BEDTIME MAGUI Azelastine HCl 2 spray 02/04/21 09:00 02/04/21 08:20 Azelastine Hcl Nasal 137 Mcg/[place] 30 Ml NOSTRIL-B Not Given BID MAGUI Carvedilol 12.5 mg 02/04/21 09:00 02/04/21 08:17 Carvedilol 12.5 Mg Tablet PO 12.5 mg BID MAGUI Administration Protocol Clopidogrel Bisulfate 75 mg 02/04/21 09:00 02/04/21 08:19 Clopidogrel Bisulfate 75 Mg Tablet PO 75 mg DAILY MAGUI Administration Dextrose 25 gm 02/04/21 02:40 Dextrose 50 % 25 Gm/50 Ml Vial IVPUSH Q15M PRN per Hypoglycemia Standing Ord. Protocol Docusate Sodium 100 mg 02/04/21 09:00 02/04/21 08:18 Docusate Sodium 100 Mg Capsule PO 100 mg BID MAGUI Administration Fenofibrate 160 mg 02/04/21 09:00 02/04/21 08:19 Fenofibrate 160 Mg Tablet PO 160 mg DAILY MAGUI Administration Fluticasone/Vilanterol 1 puff 02/04/21 09:00 02/04/21 09:39 Fluticasone/Vilanterol 100/25 Blst.W.Dev INHALE Not Given DAILY MAGUI Gabapentin 600 mg 02/04/21 21:00 Gabapentin 300 Mg Capsule PO BEDTIME MAGUI Gabapentin 300 mg 02/04/21 09:00 02/04/21 08:19 Gabapentin 300 Mg Capsule PO 300 mg DAILY MAGUI Administration Glucose 15 gm 02/04/21 02:40 Glucose Gel 15 Gm Gel..Gram. PO Q15M PRN per Hypoglycemia Standing Ord. Protocol Hydromorphone HCl 0.5 mg 02/04/21 02:34 02/04/21 08:20 Hydromorphone Hcl 0.5 Mg/0.5 Ml Syringe IVPUSH 0.5 mg Q4H PRN Administration Pain, Severe (Pain Scale 7-10) Piperacillin Sod/Tazobactam 50 mls @ 100 mls/hr 02/04/21 07:00 02/04/21 07:13 Sod 3.375 gm/ Sodium Chloride IV Infused Q8H MAGUI Infusion Vancomycin HCl 750 mg/ Sodium 265 mls @ 265 mls/hr 02/04/21 20:00 Chloride IV Q24H MAGUI Dextrose/Lactated Ringer's 1,000 mls @ 80 mls/hr 02/04/21 12:15 D5lr IVCONT .[id number] [facility] Insulin Glargine 36 unit 02/04/21 21:00 Insulin Glargine,Hum.Rec.Anlog 100 Unit/Ml 10 Ml Vial SUBCUT BEDTIME [facility] Insulin Human Lispro 0 - 10 unit 02/04/21 07:30 02/04/21 11:24 Insulin Lispro 100 Unit/Ml 3 Ml Vial SUBCUT 6 unit QIDACHS [facility] Administration Protocol Melatonin 6 mg 02/04/21 02:34 Melatonin 3 Mg Tablet PO BEDTIME PRN Insomnia Omeprazole 20 mg 02/04/21 09:00 02/04/21 08:18 Omeprazole 20 Mg Capsule. PO 20 mg DAILY MAGUI Administration Ondansetron HCl 4 mg 02/04/21 03:24 02/04/21 05:01 Ondansetron Hcl 4 Mg/2 Ml Vial IVPUSH 4 mg Q8H PRN Administration Nausea and Vomiting Pharmacy Consult 1 each 02/04/21 02:34 Consult Rx Vancomycin Dosing MISCELLANE DAILY PRN Consult order Sertraline HCl 100 mg 02/04/21 09:00 02/04/21 08:19 Sertraline Hcl 50 Mg Tablet PO 100 mg DAILY MAGUI Administration Sodium Chloride 3 ml 02/04/21 08:00 02/04/21 08:20 0.9 % Sodium Chloride Flush 3 Ml Syringe IVFLUSH 3 ml QSHIFT MAGUI Administration Tizanidine HCl 4 mg 02/04/21 02:41 Tizanidine Hcl 4 Mg Tablet PO BEDTIME PRN muscle spasm Home Medications Medication Instructions Recorded Confirmed Last Taken Type albuterol sulfate 90 mcg/actuation 2 puff INHALATION Q4H PRN 04/25/20 02/04/21 Unknown History aerosol inhaler amitriptyline 25 mg tablet 25 mg PO BEDTIME 04/25/20 02/04/21 Unknown History aspirin 81 mg tablet,delayed 81 mg PO DAILY 04/25/20 02/04/21 Unknown History release atorvastatin 80 mg tablet 80 mg PO BEDTIME 04/25/20 02/04/21 Unknown History clopidogrel 75 mg tablet 75 mg PO DAILY 04/25/20 02/04/21 Unknown History docusate sodium 100 mg capsule 100 mg PO BID 04/25/20 02/04/21 Unknown History gabapentin 300 mg capsule 300 mg PO DAILY 04/25/20 02/04/21 Unknown History (Neurontin) insulin glargine 100 unit/mL (3 36 unit SUBCUT QAM ml 04/25/20 02/04/21 Unknown History mL) subcutaneous pen (Lantus Solostar U-100 Insulin) pantoprazole 40 mg tablet,delayed 40 mg PO DAILY 04/25/20 02/04/21 Unknown History release sertraline 25 mg tablet 100 mg PO DAILY 04/25/20 02/04/21 Unknown History sitagliptin 25 mg tablet 25 mg PO DAILY 04/25/20 02/04/21 Unknown History azelastine 137 mcg (0.1 %) nasal 2 spray INTRANASAL BID 02/04/21 02/04/21 Unknown History spray aerosol fenofibrate nanocrystallized 145 1 tab PO DAILY 02/04/21 02/04/21 Unknown History mg tablet fluticasone 250 mcg-salmeterol 50 1 inh INHALATION Q12H 02/04/21 02/04/21 Unknown History mcg/dose blistr powdr for inhalation gabapentin 300 mg capsule 600 mg PO BEDTIME 02/04/21 02/04/21 Unknown History insulin lispro 100 unit/mL 10 - 15 unit SUBCUT TID 02/04/21 02/04/21 Unknown History subcutaneous pen (Humalog KwikPen (U-100) Insulin) pen needle, diabetic 31 gauge x 02/04/21 02/04/21 Unknown History 5/16 (BD Ultra-Fine Short Pen Needle) tizanidine 4 mg tablet 1 tab PO BEDTIME PRN 02/04/21 02/04/21 Unknown History torsemide 20 mg tablet 3 tab PO BID 02/04/21 02/04/21 Unknown History Physical Exam Vital Signs: Vital Signs: Last Vital Signs Temp 99.4 F 02/04/21 10:37 Pulse 96 02/04/21 10:37 Resp 18 02/04/21 10:37 BP 125/62 02/04/21 10:37 Pulse Ox 96 02/04/21 10:37 Body Mass Index 30.4 GENERAL APPEARANCE: in no acute distress, pleasant. NECK: no carotid bruit, no jugular venous distention. SKIN: no suspicious lesions, warm and dry. HEART: no murmurs, regular rate and rhythm. LUNGS: clear to auscultation bilaterally. ABDOMEN: soft, nontender. EXTREMITIES: no edema. PERIPHERAL PULSES: equal. NEUROLOGIC: No gross deficits, AAO X 3 Results Labs and Meds Result diagrams: 02/04/21 04:09 02/04/21 04:09 Lab results: Laboratory Results - last 24 hr 02/03/21 02/03/21 02/03/21 20:06 20:18 20:18 WBC 12.7 H RBC 3.55 L Hgb 9.8 L Hct 29.2 L MCV 82.3 MCH 27.6 MCHC 33.6 RDW 14.1 Plt Count 289 MPV 10.1 Immature Gran % (Auto) 0.7 H Neut % (Auto) 83.4 H Lymph % (Auto) 8.0 L [place] % (Auto) 7.7 Eos % (Auto) 0.0 Baso % (Auto) 0.2 Lymph # (Auto) 1.0 L [place] # (Auto) 1.0 Eos # (Auto) 0.0 Baso # (Auto) 0.0 Abs Immat Gran (auto) 0.09 H Absolute Neuts (auto) 10.6 H Absolute Nucleated RBC 0.000 Nucleated RBC % (auto) 0.0 Sodium 130 L Potassium 4.4 Chloride 90 L Carbon Dioxide 27 Anion Gap 17 BUN 43 H Creatinine 3.32 H Estim Creat Clear Calc 29.7 Estimated GFR 20 POC Glucose Random Glucose 261 H Lactic Acid Lactic Acid Fup @ 2Hr Calcium 9.6 Total Bilirubin 0.4 Direct Bilirubin 0.2 AST 33 ALT 16 Alkaline Phosphatase 107 Total Protein 9.1 H Albumin 4.2 Lipase 48 Nasal Screen MRSA (PCR) Nasal S. aureus Screen Nasal MRSA/S.aureus Interp COVID-19 (KATE) Negative COVID-19 Clin Com See Note 02/03/21 02/04/21 02/04/21 22:31 01:16 01:46 WBC RBC Hgb Hct MCV MCH MCHC RDW Plt Count MPV Immature Gran % (Auto) Neut % (Auto) Lymph % (Auto) [place] % (Auto) Eos % (Auto) Baso % (Auto) Lymph # (Auto) [place] # (Auto) Eos # (Auto) Baso # (Auto) Abs Immat Gran (auto) Absolute Neuts (auto) Absolute Nucleated RBC Nucleated RBC % (auto) Sodium Potassium Chloride Carbon Dioxide Anion Gap BUN Creatinine Estim Creat Clear Calc Estimated GFR POC Glucose Random Glucose Lactic Acid 2.8 H* 1.8 Lactic Acid Fup @ 2Hr Cancelled Calcium Total Bilirubin Direct Bilirubin AST ALT Alkaline Phosphatase Total Protein Albumin Lipase Nasal Screen MRSA (PCR) Nasal S. aureus Screen Nasal MRSA/S.aureus Interp COVID-19 ([facility]ATE) COVID-19 Clin Com 02/04/21 02/04/21 02/04/21 04:09 04:09 07:56 WBC 13.7 H RBC 3.23 L Hgb 8.8 L Hct 27.2 L MCV 84.2 MCH 27.2 MCHC 32.4 RDW 14.2 Plt Count 219 MPV 11.3 Immature Gran % (Auto) 0.8 H Neut % (Auto) 86.6 H Lymph % (Auto) 5.9 L [place] % (Auto) 6.5 Eos % (Auto) 0.0 Baso % (Auto) 0.2 Lymph # (Auto) 0.8 L [place] # (Auto) 0.9 Eos # (Auto) 0.0 Baso # (Auto) 0.0 Abs Immat Gran (auto) 0.11 H Absolute Neuts (auto) 11.8 H Absolute Nucleated RBC 0.000 Nucleated RBC % (auto) 0.0 Sodium 130 L Potassium 4.2 Chloride 92 L Carbon Dioxide 27 Anion Gap 15 BUN 42 H Creatinine 3.12 H Estim Creat Clear Calc 31.6 Estimated GFR 22 POC Glucose 406 H* Random Glucose 330 H Lactic Acid Lactic Acid Fup @ 2Hr Calcium 8.6 D Total Bilirubin Direct Bilirubin AST ALT Alkaline Phosphatase Total Protein Albumin Lipase Nasal Screen MRSA (PCR) Nasal S. aureus Screen Nasal MRSA/S.aureus Interp COVID-19 ([facility]ATE) COVID-19 Clin Com 02/04/21 02/04/21 10:00 11:08 WBC RBC Hgb Hct MCV MCH MCHC RDW Plt Count MPV Immature Gran % (Auto) Neut % (Auto) Lymph % (Auto) [place] % (Auto) Eos % (Auto) Baso % (Auto) Lymph # (Auto) [place] # (Auto) Eos # (Auto) Baso # (Auto) Abs Immat Gran (auto) Absolute Neuts (auto) Absolute Nucleated RBC Nucleated RBC % (auto) Sodium Potassium Chloride Carbon Dioxide Anion Gap BUN Creatinine Estim Creat Clear Calc Estimated GFR POC Glucose 291 H Random Glucose Lactic Acid Lactic Acid Fup @ 2Hr Calcium Total Bilirubin Direct Bilirubin AST ALT Alkaline Phosphatase Total Protein Albumin Lipase Nasal Screen MRSA (PCR) NEGATIVE Nasal S. aureus Screen NEGATIVE Nasal MRSA/S.aureus Interp SEE NOTE COVID-19 ([facility]) COVID-19 Clin Com Imaging Radiologist's impression: Impressions Chest CT 02/03/21 22:08 IMPRESSION: * Coalescent parenchymal consolidation present within the inferolateral left upper lobe, statistically related to a bronchopneumonia, however organizing pneumonia could also have this appearance. * Chronic round atelectasis within the left lower lobe accompanied by a small loculated pleural effusion. * Reactive mediastinal lymph nodes. * No acute findings within the abdomen or pelvis. * Hepatic steatosis. Abdomen/Pelvis CT 02/03/21 22:09 IMPRESSION: * Coalescent parenchymal consolidation present within the inferolateral left upper lobe, statistically related to a bronchopneumonia, however organizing pneumonia could also have this appearance. * Chronic round atelectasis within the left lower lobe accompanied by a small loculated pleural effusion. * Reactive mediastinal lymph nodes. * No acute findings within the abdomen or pelvis. * Hepatic steatosis. Head CT 02/04/21 02:49 IMPRESSION: No acute intracranial pathology. Chest X-Ray 02/04/21 03:17 FINDINGS/IMPRESSION: Again seen is consolidation within the lateral left upper lobe and left lung base as better seen on the recent CT. Left chest wall cardioverter/defibrillator generator with left parasternal subcutaneous lead redemonstrated. Right lung clear. No pleural effusion on the right. No pneumothorax. Assessment and Plan (1) Pneumonia: Qualifiers: Laterality: left Lung location: lower lobe of lung Pneumonia type: due to unspecified organism Qualified Code(s): J18.9 - Pneumonia, unspecified organism Status: Acute (2) Ischemic cardiomyopathy: Status: Acute 45-year-old gentleman who is admitted with shortness of breath and pneumonia. He is on antibiotics. Clinically he is not in heart failure right now. His CAD is worsens. His Mike inhibitor was held an outpatient appropriately. Right now he does not seem significantly overloaded. I think he does not need IV diuretics. No ischemic symptoms. Continue the aspirin and Plavix as before. Continue the carvedilol. will follow along with you. Procedures Date of Service Date of Service: 02/04/21
[2021-02-04] MEDS: Dextrose 5 % and Lactated Ring 1,000 ML 80 ML IVCONT (12:43)
--- NOTE | 2021-02-04 13:47 | MHC.CM.PN ---
EMR REVIEWED, PT ADMITTED W/PNA, CM MET W/PT VIA ENGRAVER JEWELRY, PT'S ON PHONE AT TIME OF INTERVIEW AND INTERJECTED AT TIMES, PT LIVES W/SPOUSE AND TWO SONS, PT NORMALLY INDEP W/CARE, ASSISTS IF NEEDED, PT HAS A CPAP, NEBULIZER AND CANE AT HOME, NO HOME MOD'S, PT ACTIVE W/[facility], REFERRAL TO BE PLACED. PT ABLE TO VERIFY PCP AND HCP, COPY REQUESTED. D/C PLAN: HOME W/RESUMP OF [facility]NA PCP: BENJY ARGUELLO HCP VENKATA WINN (SPOUSE) [phone]
[2021-02-04 15:58] LABS: Glucose, Whole Blood 267 mg/dL (60-115)
[2021-02-04 18:12] LABS: Creatinine Urine 203.86 mg/dL
[2021-02-04 18:29] LABS: Sodium Urine Random < 20.0 mmol/L
[2021-02-04 18:56] LABS: Total Protein Urine Random 369 mg/dL (<12)
[2021-02-04 19:45] LABS: Glucose, Whole Blood 431 mg/dL (60-115)
--- NOTE | 2021-02-04 19:47 | CONS_ITS ---
DATE OF SERVICE: REASON FOR CONSULTATION: I asked to see the patient to assist in evaluation and management of the patient's acute kidney injury as reflected by a serum creatinine of 3.32 today, whereas there is mention made when he had discharge from [facility] on the 19 of January, his creatinine was 1.7. 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 for complicated pneumonia and pleural effusion, had a chest tube placed there. The patient states he was discharged, doing better, now comes in again with fevers and headache, had been going on for the past several days and the acute kidney injury as mentioned. The patient describes generalized weakness, cough, phlegm production, and fevers. He denies any gross hematuria or dysuria. Denies any change in his voiding pattern. He denies taking NSAIDs. In the emergency room, he had a full evaluation including a head CT, which was negative and a chest CT, which was abnormal as noted in the records. He was given some IV vancomycin and Zosyn, pancultured and he is going to be evaluated by Pulmonary and Cardiology as part of the ongoing evaluation process. This morning, he is feeling a bit better, but still has a lot of generalized achiness. He continues with cough and phlegm production. No hemoptysis. PAST MEDICAL HISTORY: As outlined above, includes coronary artery disease; bypass surgery; diabetes; chronic kidney disease with a baseline creatinine appears to be in the 1.5 to 2.0 range, we will need to track down outpatient records; hyperlipidemia; hypertension. He has an AICD in place, ischemic cardiomyopathy and as mentioned, the recent [facility] hospitalization with the pneumonia with effusion and requirement of a chest tube last month. MEDICATIONS: On admission are listed including Elavil, aspirin, Lipitor, Plavix, Neurontin, insulin, Zoloft, fenofibrate, torsemide 20 mg tablets 3 tablets twice a day. I do not see any mention made of JONNIE or ARB. His current medications are noted in the admitting notes in the MAR. He is on Zosyn, and he got 1 dose of vancomycin in the emergency room. There is a question of continued vancomycin order. SOCIAL HISTORY: He is a nonsmoker and nondrinker. No illicit drug use and denies taking NSAIDs. FAMILY HISTORY: No kidney disease in the family. REVIEW OF SYSTEMS: As noted above. PHYSICAL EXAMINATION: VITAL SIGNS: Blood pressure 130/80 with a heart rate in the 90s. HEENT: Head is atraumatic and normocephalic. Mucous membranes are moist. NECK: Supple. LUNGS: Demonstrate rhonchi and some rales. Decreased breath sounds at the bases. CARDIAC: Regular rate and rhythm without rub. ABDOMEN: Soft and nontender. Good bowel sounds. No CVA tenderness. EXTREMITIES: No edema. There is no asterixis. LABORATORY DATA: Sodium 130, potassium 4.2, chloride 92, BUN 42, creatinine 3.12, blood sugar 330, calcium 8.6. As mentioned, there is mention made of creatinine of 1.7 from the 19 of January. Hemoglobin 8.8, hematocrit 27.2, white blood cell count of 13.7, platelet count 219. He had the CT of the chest and head as noted in the records. IMPRESSION: A 45-year-old with acute kidney injury on chronic kidney disease. Readmitted with what appears to be pulmonary infiltrate with pneumonia and pleural effusion. 1. Acute kidney injury. This may be due to cardiorenal syndrome and renal hypoperfusion in the setting of cardiac dysfunction, but other causes need to be ruled out. In particular, systemic inflammatory response syndrome associated acute tubular necrosis. An acute glomerulonephritis would also be a consideration given his clinical presentation. In particular, pulmonary renal syndrome or infectious associated with acute glomerulonephritis. Acute interstitial nephritis from antibiotics or infection would also be in the differential. Obstructive uropathy has been ruled out by the CAT scan, which showed no evidence of hydro. 2. Stage 3 chronic kidney disease. Appears his baseline creatinine is 1.5 to 2.0. Most likely has underlying diabetic kidney disease. 3. Recurrent pneumonia with effusion. He is going to be evaluated by Pulmonary. May need repeat thoracentesis. 4. Anemia. Most likely multifactorial. Rule out iron deficiency. He also may be a candidate for EPO replacement therapy. 5. Chronic kidney disease issues. Most likely has underlying secondary hyperparathyroidism. We will check intact PTH and vitamin D. May have chronic anemia from EPO deficiency state. We will also need to protect his nondominant arm for future AV fistula as he is certainly at high risk for progression of kidney disease to the point of requiring dialysis within the next several years, if not sooner. SUGGESTIONS: At this time include urinalysis and spot urine studies for protein, creatinine, and microalbumin. Urine for eosinophils. Serologies as ordered to rule out a pulmonary renal syndrome. Avoid nephrotoxins. We will need to discuss with the team about use of vancomycin whether this can be avoided given the significant risk of further renal injury from vancomycin. We will follow the patient closely with the team. MD JASKARAN Cisneros/ADE / [phone]
[2021-02-04] MEDS: Gabapentin 300 MG CAPSULE 600 MG PO (21:29)
[2021-02-04] MEDS: Acetaminophen 325 MG TABLET 650 MG PO (21:35)
[2021-02-04] MEDS: Atorvastatin Calcium 80 MG TABLET PO (21:36)
[2021-02-04] MEDS: Amitriptyline HCl 25 MG TABLET PO (21:39)
[2021-02-04] MEDS: Insulin Glargine,Hum.rec.anlog 100 UNIT/ML 10 ML VIAL 36 UNIT SUBCUT (21:40)
[2021-02-04] MEDS: vancomycin HCL 750 MG in 0.9 % Sodium Chloride 250 ML 265 MG IV (21:41)
[2021-02-04] MEDS: Melatonin 3 MG TABLET 6 MG PO (22:02)
[2021-02-04] MEDS: Albuterol/Iprat 2.5/0.5MG 3 ML AMPUL.NEB INHALE (22:56)
[2021-02-05] VITALS (8 sets, daily range): BP systolic 108–153; BP diastolic 53–80; PULSE 92–114; RESP 20; TEMP 36.6–38.1; O2SAT 90–95
[2021-02-05] MEDS: Piperacillin Sodium/Tazobactam 3.375 GM in 0.9 % Sodium Chloride 50 ML IV ×3 (00:08→15:48)
[2021-02-05] MEDS: Dextrose 5 % and Lactated Ring 1,000 ML 80 ML IVCONT (03:30)
[2021-02-05] MEDS: HYDROmorphone HCl 0.5 MG/0.5 ML SYRINGE IVPUSH ×5 (03:30→20:50)
[2021-02-05] MEDS: Acetaminophen 325 MG TABLET 650 MG PO ×3 (06:08→23:59)
[2021-02-05 06:54] LABS: Hematocrit 26.6 % (42-52); Hemoglobin 8.7 g/dl (14.0-18.0); Mean Corpuscular HGB Conc 32.7 g/dl (31.0-36.0); Mean Corpuscular Hemoglobin 27.6 pg (27.0-33.0); Mean Corpuscular Volume 84.4 fL (80-98); Mean Platelet Volume 11.9 fL (9.4-12.4); NRBC Pct Auto 0.2 /100WBC (0.0-0.2); Platelet Count 175 X10*3/uL (160-400); Red Blood Count 3.15 X10*6/uL (4.60-5.80); Red Cell Distribution Width 14.5 % (11.0-16.0); White Blood Count 12.9 X10*3/uL (4.8-10.8)
[2021-02-05 07:18] LABS: Glucose, Whole Blood 403 mg/dL (60-115)
[2021-02-05] MEDS: Docusate Sodium 100 MG CAPSULE PO (07:30)
[2021-02-05] MEDS: Fenofibrate 160 MG TABLET PO (07:30)
[2021-02-05] MEDS: Gabapentin 300 MG CAPSULE PO (07:30)
[2021-02-05] MEDS: Omeprazole 20 MG CAPSULE.DR PO (07:30)
[2021-02-05] MEDS: Clopidogrel Bisulfate 75 MG TABLET PO (07:30)
[2021-02-05] MEDS: carvediloL 12.5 MG TABLET PO (07:30)
[2021-02-05] MEDS: Aspirin Enteric Coated 81 MG TABLET.DR PO (07:30)
[2021-02-05] MEDS: Sertraline HCL 50 MG TABLET 100 MG PO (07:30)
[2021-02-05] MEDS: Insulin Lispro 100 UNIT/ML 3 ML VIAL SUBCUT ×5 (07:31→16:54)
[2021-02-05] MEDS: 0.9 % Sodium Chloride Flush 3 ML SYRINGE IVFLUSH ×2 (07:31→15:48)
[2021-02-05 07:36] LABS: Anion Gap 16 (12-20); Blood Urea Nitrogen 46 mg/dL (9-16); Calcium 8.1 mg/dL (8.4-10.2); Carbon Dioxide 26 mmol/L (22-29); Chloride 92 mmol/L (96-108); Creatinine Clr Calc Pharmacy 29.2; Estimated Glomerular Filt Rate 20; Glucose Fasting 435 mg/dL (60-99); Potassium 4.3 mmol/L (3.3-5.1); Sodium 130 mmol/L (135-145)
[2021-02-05 08:43] LABS: HBc Num1 0.05 S/CO (0.00-0.79); HBsAGNum1 0.16 S/CO (0.00-0.99); Hepatitis B Core Antibody Nonreactive (Nonreactive); Hepatitis B Surface Antigen Negative (Negative); ~HepC Num1 0.05 S/CO (0.00-0.79); ~Hepatitis C Antibody Nonreactive (Nonreactive)
[2021-02-05 08:51] LABS: ~Hepatitis B Surface Antibody NONREACTIVE (Nonreactive)
[2021-02-05 10:22] LABS: EOS Counted 0 CELLS; EOS QC POS YES; EOS Stain Quality OK YES; WBC, Counted 0 CELLS
--- NOTE | 2021-02-05 10:33 | P.CDIC_ITS ---
CDI Concurrent Query Service Date: 02/05/21 Documentation Clarification: Please clarify if you are treating a proba ble/suspected/likely or confirmed: LABS: Hyponatremia Other, please specify if known or undetermined Provider Response: Other Other Diagnosis: hyponatremia PLEASE DO NOT DELETE/MODIFY EXISTING CONTENT Additional information is needed in order to code to the highest accuracy and appropriate Severity of Illness (SOI). Please clarify the information noted below in your progress notes and discharge summary. Risk Factors/Clinical Indicators/Treatments Lab Findings: sodium 130 L IV fluids CDS: Bruna Patrick CCS, CDIS Contact Number: [phone] Please Review the information above and exercise your independent professional judgment in responding to the query. If you concur, pleas document in the PROGRESS NOTES and DISCHARGE SUMMARY. If you do not agree with the query, please document in the query above. THIS QUERY IS PART OF THE PERMANENT MEDICAL RECORD
[2021-02-05 11:27] LABS: Glucose, Whole Blood 326 mg/dL (60-115)
--- NOTE | 2021-02-05 11:32 | P.PNCA_ITS ---
Subjective Subjective Date of Service: 02/05/21 Interval history: Complaining of headache and neck pain. Physical Exam Vital Signs: Last Vital Signs Temp 98 F 02/05/21 11:12 Pulse 104 H 02/05/21 11:12 Resp 20 02/05/21 11:12 BP 128/65 02/05/21 11:12 Pulse Ox 93 02/05/21 11:12 Body Mass Index 30.4 GENERAL APPEARANCE: Distress due to headache and neck pain. NECK: no carotid bruit, no jugular venous distention. SKIN: no suspicious lesions, warm and dry. HEART: no murmurs, regular rate and rhythm. LUNGS: clear to auscultation bilaterally. ABDOMEN: soft, nontender. EXTREMITIES: no edema. PERIPHERAL PULSES: equal. NEUROLOGIC: No gross deficits, AAO X 3. No meningeal signs. Results Labs and Meds Result diagrams: 02/05/21 06:06 02/05/21 06:06 Lab results: Laboratory Results - last 24 hr 02/04/21 02/04/21 02/04/21 10:00 15:52 17:40 WBC RBC Hgb Hct MCV MCH MCHC RDW Plt Count MPV Absolute Nucleated RBC Nucleated RBC % (auto) Sodium Potassium Chloride Carbon Dioxide Anion Gap BUN Creatinine Estim Creat Clear Calc Estimated GFR POC Glucose 267 H Fasting Glucose Calcium Urine Eosinophils % U Random Total Protein Ur Random Sodium Urine Creatinine 203.86 Nasal Screen MRSA (PCR) NEGATIVE Nasal S. aureus Screen NEGATIVE Nasal MRSA/S.aureus Interp SEE NOTE Hep Bs Antigen Hep Bs Antibody Hep B Core Total Ab Hepatitis C Ab (EIA) 02/04/21 02/04/21 02/04/21 17:40 17:40 19:40 WBC RBC Hgb Hct MCV MCH MCHC RDW Plt Count MPV Absolute Nucleated RBC Nucleated RBC % (auto) Sodium Potassium Chloride Carbon Dioxide Anion Gap BUN Creatinine Estim Creat Clear Calc Estimated GFR POC Glucose 431 H* Fasting Glucose Calcium Urine Eosinophils % 0.0 U Random Total Protein 369 H Ur Random Sodium < 20.0 Urine Creatinine Nasal Screen MRSA (PCR) Nasal S. aureus Screen Nasal MRSA/S.aureus Interp Hep Bs Antigen Hep Bs Antibody Hep B Core Total Ab Hepatitis C Ab (EIA) 02/05/21 02/05/21 02/05/21 06:06 06:06 07:14 WBC 12.9 H RBC 3.15 L Hgb 8.7 L Hct 26.6 L MCV 84.4 MCH 27.6 MCHC 32.7 RDW 14.5 Plt Count 175 MPV 11.9 Absolute Nucleated RBC 0.020 H Nucleated RBC % (auto) 0.2 Sodium 130 L Potassium 4.3 Chloride 92 L Carbon Dioxide 26 Anion Gap 16 BUN 46 H Creatinine 3.34 H Estim Creat Clear Calc 29.2 Estimated GFR 20 POC Glucose 403 H* Fasting Glucose 435 H* Calcium 8.1 L Urine Eosinophils % U Random Total Protein Ur Random Sodium Urine Creatinine Nasal Screen MRSA (PCR) Nasal S. aureus Screen Nasal MRSA/S.aureus Interp Hep Bs Antigen Hep Bs Antibody Hep B Core Total Ab Hepatitis C Ab (EIA) 02/05/21 02/05/21 07:35 11:11 WBC RBC Hgb Hct MCV MCH MCHC RDW Plt Count MPV Absolute Nucleated RBC Nucleated RBC % (auto) Sodium Potassium Chloride Carbon Dioxide Anion Gap BUN Creatinine Estim Creat Clear Calc Estimated GFR POC Glucose 326 H Fasting Glucose Calcium Urine Eosinophils % U Random Total Protein Ur Random Sodium Urine Creatinine Nasal Screen MRSA (PCR) Nasal S. aureus Screen Nasal MRSA/S.aureus Interp Hep Bs Antigen Negative Hep Bs Antibody NONREACTIVE Hep B Core Total Ab Nonreactive Hepatitis C Ab (EIA) Nonreactive Progress Note: A&P Assessment and plan (1) Pneumonia: Status: Acute (2) S/P CABG x 2: Status: Acute (3) Ischemic cardiomyopathy: Status: Acute Assessment and Plan: 45-year-old gentleman who is status post bypass surgery and has ischemic cardiomyopathy status post ICD who is presenting for pneumonia. He continues to have some fever and headaches. Overall from cardiovascular point of view he is stable. Clinically not in heart failure. He had acute kidney injury and I really doubt that this is linked with his cardiomyopathy. He does not seem in a low-flow state and does not look significantly overloaded to explain worsening kidney function. Nephrology is following him closely. We will follow along. Thank you for allowing me to participate in the care of your patient. Please feel free to contact me if you have any questions. Fall Risk Details Current Medications: Current Medications Generic Name Dose Route Start Last Admin Trade Name Freq PRN Reason Stop Dose Admin Acetaminophen 650 mg 02/04/21 02:34 02/05/21 06:08 Acetaminophen 325 Mg Tablet PO 650 mg Q6H PRN Administration Pain, Mild (Pain Scale 1-3) Albuterol/Ipratropium 3 ml 02/04/21 22:08 02/04/21 22:56 Albuterol/Iprat 2.5/0.5mg 3 Ml Ampul.Neb INHALE 3 ml RQ4H PRN Administration Shortness of Breath/Wheezing Amitriptyline HCl 25 mg 02/04/21 21:00 02/04/21 21:39 Amitriptyline Hcl 25 Mg Tablet PO 25 mg BEDTIME MAGUI Administration Aspirin 81 mg 02/04/21 09:00 02/05/21 07:30 Aspirin Enteric Coated 81 Mg Tablet. PO 81 mg DAILY MAGUI Administration Atorvastatin Calcium 80 mg 02/04/21 21:00 02/04/21 21:36 Atorvastatin Calcium 80 Mg Tablet PO 80 mg BEDTIME MAGUI Administration Azelastine HCl 2 spray 02/04/21 09:00 02/04/21 22:16 Azelastine Hcl Nasal 137 Mcg/[place] 30 Ml NOSTRIL-B Not Given BID MAGUI Carvedilol 12.5 mg 02/04/21 09:00 02/05/21 07:30 Carvedilol 12.5 Mg Tablet PO 12.5 mg BID MAGUI Administration Protocol Clopidogrel Bisulfate 75 mg 02/04/21 09:00 02/05/21 07:30 Clopidogrel Bisulfate 75 Mg Tablet PO 75 mg DAILY MAGUI Administration Dextrose 25 gm 02/04/21 02:40 Dextrose 50 % 25 Gm/50 Ml Vial IVPUSH Q15M PRN per Hypoglycemia Standing Ord. Protocol Docusate Sodium 100 mg 02/04/21 09:00 02/05/21 07:30 Docusate Sodium 100 Mg Capsule PO 100 mg BID MAGUI Administration Fenofibrate 160 mg 02/04/21 09:00 02/05/21 07:30 Fenofibrate 160 Mg Tablet PO 160 mg DAILY MAGUI Administration Fluticasone/Vilanterol 1 puff 02/04/21 09:00 02/04/21 09:39 Fluticasone/Vilanterol 100/25 Blst.W.Dev INHALE Not Given DAILY MAGUI Gabapentin 600 mg 02/04/21 21:00 02/04/21 21:29 Gabapentin 300 Mg Capsule PO 600 mg BEDTIME MAGUI Administration Gabapentin 300 mg 02/04/21 09:00 02/05/21 07:30 Gabapentin 300 Mg Capsule PO 300 mg DAILY MAGUI Administration Glucose 15 gm 02/04/21 02:40 Glucose Gel 15 Gm Gel..Gram. PO Q15M PRN per Hypoglycemia Standing Ord. Protocol Hydromorphone HCl 0.5 mg 02/04/21 02:34 02/05/21 07:30 Hydromorphone Hcl 0.5 Mg/0.5 Ml Syringe IVPUSH 0.5 mg Q4H PRN Administration Pain, Severe (Pain Scale 7-10) Piperacillin Sod/Tazobactam 50 mls @ 100 mls/hr 02/04/21 07:00 02/05/21 06:43 Sod 3.375 gm/ Sodium Chloride IV Infused Q8H [facility] Infusion Insulin Glargine 40 unit 02/05/21 21:00 Insulin Glargine,Hum.Rec.Anlog 100 Unit/Ml 10 Ml Vial SUBCUT BEDTIME [facility] Insulin Human Lispro 0 - 10 unit 02/04/21 07:30 02/05/21 07:31 Insulin Lispro 100 Unit/Ml 3 Ml Vial SUBCUT 10 unit QIDACHS [facility] Administration Protocol Insulin Human Lispro 5 unit 02/05/21 11:30 Insulin Lispro 100 Unit/Ml 3 Ml Vial SUBCUT QIDACHS [facility] Melatonin 6 mg 02/04/21 02:34 02/04/21 22:02 Melatonin 3 Mg Tablet PO 6 mg BEDTIME PRN Administration Insomnia Omeprazole 20 mg 02/04/21 09:00 02/05/21 07:30 Omeprazole 20 Mg Capsule. PO 20 mg DAILY [facility] Administration Ondansetron HCl 4 mg 02/04/21 03:24 02/04/21 12:48 Ondansetron Hcl 4 Mg/2 Ml Vial IVPUSH 4 mg Q8H PRN Administration Nausea and Vomiting Pharmacy Consult 1 each 02/04/21 02:34 Consult Rx Vancomycin Dosing MISCELLANE DAILY PRN Consult order Sertraline HCl 100 mg 02/04/21 09:00 02/05/21 07:30 Sertraline Hcl 50 Mg Tablet PO 100 mg DAILY MAGUI Administration Sodium Chloride 3 ml 02/04/21 08:00 02/05/21 07:31 0.9 % Sodium Chloride Flush 3 Ml Syringe IVFLUSH 3 ml QSHIFT [facility] Administration Tizanidine HCl 4 mg 02/04/21 02:41 Tizanidine Hcl 4 Mg Tablet PO BEDTIME PRN muscle spasm Time Spent With Patient Time: Total time spent is greater than 50% in coordination of care (as documented) at patient's floor/unit and/or counseling patient: Time with patient: 25 - 35 minutes Procedures Date of Service Date of Service: 02/05/21
--- NOTE | 2021-02-05 12:29 | HO.PM.IMPN ---
Subjective Subjective Date of Service: 02/05/21 Interval History: weak, chills Constitutional Constitutional: Reports no additional constitutional complaints Eyes Eyes: Reports no additional eye complaints Physical Exam Vital Signs: Vital Signs: Last Vital Signs Temp 98 F 02/05/21 11:12 Pulse 104 H 02/05/21 11:12 Resp 20 02/05/21 11:12 BP 128/65 02/05/21 11:12 Pulse Ox 93 02/05/21 11:12 Body Mass Index 30.4 General: lethargic ill appearing, resp: Crackles CVS: S1,S2,RRR GI: soft, non tender, non distended Neuro: motor grossly intact Psych: appropriate affect Objective Data Current Medications Generic Name Dose Route Start Last Admin Trade Name Freq PRN Reason Stop Dose Admin Acetaminophen 650 mg 02/04/21 02:34 02/05/21 11:40 Acetaminophen 325 Mg Tablet PO 650 mg Q6H PRN Administration Pain, Mild (Pain Scale 1-3) Albuterol/Ipratropium 3 ml 02/04/21 22:08 02/04/21 22:56 Albuterol/Iprat 2.5/0.5mg 3 Ml Ampul.Neb INHALE 3 ml RQ4H PRN Administration Shortness of Breath/Wheezing Amitriptyline HCl 25 mg 02/04/21 21:00 02/04/21 21:39 Amitriptyline Hcl 25 Mg Tablet PO 25 mg BEDTIME MAGUI Administration Aspirin 81 mg 02/04/21 09:00 02/05/21 07:30 Aspirin Enteric Coated 81 Mg Tablet.Dr PO 81 mg DAILY MAGUI Administration Atorvastatin Calcium 80 mg 02/04/21 21:00 02/04/21 21:36 Atorvastatin Calcium 80 Mg Tablet PO 80 mg BEDTIME MAGUI Administration Azelastine HCl 2 spray 02/04/21 09:00 02/04/21 22:16 Azelastine Hcl Nasal 137 Mcg/[place] 30 Ml NOSTRIL-B Not Given BID MAGUI Carvedilol 12.5 mg 02/04/21 09:00 02/05/21 07:30 Carvedilol 12.5 Mg Tablet PO 12.5 mg BID MAGUI Administration Protocol Clopidogrel Bisulfate 75 mg 02/04/21 09:00 02/05/21 07:30 Clopidogrel Bisulfate 75 Mg Tablet PO 75 mg DAILY MAGUI Administration Dextrose 25 gm 02/04/21 02:40 Dextrose 50 % 25 Gm/50 Ml Vial IVPUSH Q15M PRN per Hypoglycemia Standing Ord. Protocol Docusate Sodium 100 mg 02/04/21 09:00 02/05/21 07:30 Docusate Sodium 100 Mg Capsule PO 100 mg BID MAGUI Administration Fenofibrate 160 mg 02/04/21 09:00 02/05/21 07:30 Fenofibrate 160 Mg Tablet PO 160 mg DAILY MAGUI Administration Fluticasone/Vilanterol 1 puff 02/04/21 09:00 02/04/21 09:39 Fluticasone/Vilanterol 100/25 Blst.W.Dev INHALE Not Given DAILY MAGUI Gabapentin 600 mg 02/04/21 21:00 02/04/21 21:29 Gabapentin 300 Mg Capsule PO 600 mg BEDTIME MAGUI Administration Gabapentin 300 mg 02/04/21 09:00 02/05/21 07:30 Gabapentin 300 Mg Capsule PO 300 mg DAILY MAGUI Administration Glucose 15 gm 02/04/21 02:40 Glucose Gel 15 Gm Gel..Gram. PO Q15M PRN per Hypoglycemia Standing Ord. Protocol Hydromorphone HCl 0.5 mg 02/04/21 02:34 02/05/21 11:45 Hydromorphone Hcl 0.5 Mg/0.5 Ml Syringe IVPUSH 0.5 mg Q4H PRN Administration Pain, Severe (Pain Scale 7-10) Piperacillin Sod/Tazobactam 50 mls @ 100 mls/hr 02/04/21 07:00 02/05/21 06:43 Sod 3.375 gm/ Sodium Chloride IV Infused Q8H [facility] Infusion Insulin Glargine 40 unit 02/05/21 21:00 Insulin Glargine,Hum.Rec.Anlog 100 Unit/Ml 10 Ml Vial SUBCUT BEDTIME [facility] Insulin Human Lispro 0 - 10 unit 02/04/21 07:30 02/05/21 11:51 Insulin Lispro 100 Unit/Ml 3 Ml Vial SUBCUT 8 unit QIDACHS [facility] Administration Protocol Insulin Human Lispro 5 unit 02/05/21 11:30 02/05/21 11:51 Insulin Lispro 100 Unit/Ml 3 Ml Vial SUBCUT 5 unit QIDACHS [facility] Administration Melatonin 6 mg 02/04/21 02:34 02/04/21 22:02 Melatonin 3 Mg Tablet PO 6 mg BEDTIME PRN Administration Insomnia Omeprazole 20 mg 02/04/21 09:00 02/05/21 07:30 Omeprazole 20 Mg Capsule. PO 20 mg DAILY MAGUI Administration Ondansetron HCl 4 mg 02/04/21 03:24 02/05/21 11:45 Ondansetron Hcl 4 Mg/2 Ml Vial IVPUSH 4 mg Q8H PRN Administration Nausea and Vomiting Pharmacy Consult 1 each 02/04/21 02:34 Consult Rx Vancomycin Dosing MISCELLANE DAILY PRN Consult order Sertraline HCl 100 mg 02/04/21 09:00 02/05/21 07:30 Sertraline Hcl 50 Mg Tablet PO 100 mg DAILY MAGUI Administration Sodium Chloride 3 ml 02/04/21 08:00 02/05/21 07:31 0.9 % Sodium Chloride Flush 3 Ml Syringe IVFLUSH 3 ml QSHIFT MAGUI Administration Tizanidine HCl 4 mg 02/04/21 02:41 Tizanidine Hcl 4 Mg Tablet PO BEDTIME PRN muscle spasm Labs CBC & Chem 7: 02/05/21 06:06 02/05/21 06:06 Labs: Laboratory Results - last 24 hr 02/04/21 02/04/21 02/04/21 15:52 17:40 17:40 MCV MCH MCHC RDW Plt Count MPV Absolute Nucleated RBC Nucleated RBC % (auto) Anion Gap Estim Creat Clear Calc Estimated GFR POC Glucose 267 H Fasting Glucose Calcium Urine Eosinophils % 0.0 U Random Total Protein Ur Random Sodium Urine Creatinine 203.86 Hep Bs Antigen Hep Bs Antibody Hep B Core Total Ab Hepatitis C Ab (EIA) 02/04/21 02/04/21 02/05/21 17:40 19:40 06:06 MCV 84.4 MCH 27.6 MCHC 32.7 RDW 14.5 Plt Count 175 MPV 11.9 Absolute Nucleated RBC 0.020 H Nucleated RBC % (auto) 0.2 Anion Gap Estim Creat Clear Calc Estimated GFR POC Glucose 431 H* Fasting Glucose Calcium Urine Eosinophils % U Random Total Protein 369 H Ur Random Sodium < 20.0 Urine Creatinine Hep Bs Antigen Hep Bs Antibody Hep B Core Total Ab Hepatitis C Ab (EIA) 02/05/21 02/05/21 02/05/21 06:06 07:14 07:35 MCV MCH MCHC RDW Plt Count MPV Absolute Nucleated RBC Nucleated RBC % (auto) Anion Gap 16 Estim Creat Clear Calc 29.2 Estimated GFR 20 POC Glucose 403 H* Fasting Glucose 435 H* Calcium 8.1 L Urine Eosinophils % U Random Total Protein Ur Random Sodium Urine Creatinine Hep Bs Antigen Negative Hep Bs Antibody NONREACTIVE Hep B Core Total Ab Nonreactive Hepatitis C Ab (EIA) Nonreactive 02/05/21 11:11 MCV MCH MCHC RDW Plt Count MPV Absolute Nucleated RBC Nucleated RBC % (auto) Anion Gap Estim Creat Clear Calc Estimated GFR POC Glucose 326 H Fasting Glucose Calcium Urine Eosinophils % U Random Total Protein Ur Random Sodium Urine Creatinine Hep Bs Antigen Hep Bs Antibody Hep B Core Total Ab Hepatitis C Ab (EIA) Microbiology Microbiology Results: Microbiology 02/03/21 22:49 Blood Culture - Preliminary Blood - Venous No growth after 24 hours. 02/03/21 22:31 Blood Culture - Preliminary Blood - Venous No growth after 24 hours. Assessment and Plan (1) Pneumonia: Status: Acute Assessment and Plan: 45M presented with fever and chills severe sepsis present on admission due to pneumonia with risk factors for MDR organisms MRSA screen negative, dc vanco continue zosyn cultures negative so far MAURI on CKD III nephro following, follow up work up chornic systolic chf, ischemic asa, statin, beta allison DM with hyperglycemia basal bolus insulin Quality Stroke Does the patient have a stroke diagnosis?: No VTE Prior VTE?: No VTE Risk Level:: Medical - moderate - high VTE Device Contraindication: N/A - Device Ordered VTE Drug Contraindication: Treatment Not Indicated
[2021-02-05] MEDS: Heparin Sodium,Porcine 5,000 UNIT/ML VIAL 5000 UNIT SUBCUT ×2 (13:42→23:57)
[2021-02-05] MEDS: Sodium Chloride 0.45 % 1,000 ML 60 ML IVCONT (13:46)
[2021-02-05 15:32] LABS: NT-proBNP 3970 pg/mL
[2021-02-05 16:00] LABS: Glucose, Whole Blood 164 mg/dL (60-115)
[2021-02-05 19:55] LABS: Glucose, Whole Blood 128 mg/dL (60-115)
[2021-02-05] MEDS: Albuterol/Iprat 2.5/0.5MG 3 ML AMPUL.NEB INHALE (22:05)
--- NOTE | 2021-02-05 22:28 | PM.PNNEP ---
Subjective Subjective Date of Service: 02/05/21 Interval history: seen and examined, events noted Physical Exam Vital Signs: Vital Signs: Last Vital Signs Temp 99.2 F 02/05/21 19:02 Pulse 99 02/05/21 22:07 Resp 20 02/05/21 19:02 BP 132/75 02/05/21 19:02 Pulse Ox 94 02/05/21 19:12 Body Mass Index 30.4 Chest: Chest palpation & inspection: normal inspection of the chest Resp: Auscultation: rhonchi and diminished lung sounds Cardio: Jugular venous distension: no JVD Objective Data Labs CBC & Chem 7: 02/05/21 06:06 02/05/21 06:06 Labs: Laboratory Results - last 24 hr 02/04/21 02/04/21 02/05/21 04:09 17:40 06:06 WBC 12.9 H RBC 3.15 L Hgb 8.7 L Hct 26.6 L MCV 84.4 MCH 27.6 MCHC 32.7 RDW 14.5 Plt Count 175 MPV 11.9 Absolute Nucleated RBC 0.020 H Nucleated RBC % (auto) 0.2 Sodium Potassium Chloride Carbon Dioxide Anion Gap BUN Creatinine Estim Creat Clear Calc Estimated GFR POC Glucose Fasting Glucose Calcium NT-Pro-B Natriuret Pep 3970 H Urine Eosinophils % 0.0 Hep Bs Antigen Hep Bs Antibody Hep B Core Total Ab Hepatitis C Ab (EIA) 02/05/21 02/05/21 02/05/21 06:06 07:14 07:35 WBC RBC Hgb Hct MCV MCH MCHC RDW Plt Count MPV Absolute Nucleated RBC Nucleated RBC % (auto) Sodium 130 L Potassium 4.3 Chloride 92 L Carbon Dioxide 26 Anion Gap 16 BUN 46 H Creatinine 3.34 H Estim Creat Clear Calc 29.2 Estimated GFR 20 POC Glucose 403 H* Fasting Glucose 435 H* Calcium 8.1 L NT-Pro-B Natriuret Pep Urine Eosinophils % Hep Bs Antigen Negative Hep Bs Antibody NONREACTIVE Hep B Core Total Ab Nonreactive Hepatitis C Ab (EIA) Nonreactive 02/05/21 02/05/21 02/05/21 11:11 15:55 19:50 WBC RBC Hgb Hct MCV MCH MCHC RDW Plt Count MPV Absolute Nucleated RBC Nucleated RBC % (auto) Sodium Potassium Chloride Carbon Dioxide Anion Gap BUN Creatinine Estim Creat Clear Calc Estimated GFR POC Glucose 326 H 164 H 128 H Fasting Glucose Calcium NT-Pro-B Natriuret Pep Urine Eosinophils % Hep Bs Antigen Hep Bs Antibody Hep B Core Total Ab Hepatitis C Ab (EIA) Microbiology Microbiology Results: Microbiology 02/03/21 22:49 Blood - Venous Blood Culture - Preliminary No growth after 24 hours. 02/03/21 22:31 Blood - Venous Blood Culture - Preliminary No growth after 24 hours. Procedures Date of Service Date of Service: 02/05/21 Assessment & Plan Assessment and plan (1) Pneumonia: Status: Acute (2) S/P CABG x 2: Status: Acute (3) Ischemic cardiomyopathy: Status: Acute Assessment and Plan: 1. Non-Oliguric MAURI: wide DDx and sero and urine studies ordered; FENa < 1% suggests renal hypoperfusion and will r/s IVF; SCr was 1.7 earlier this month DDx pre-renal: low FENa AGN or AIN related to infection vs non-infectious related Acute Obs: doubtful given neg CT for hydr Multifact ATN 2. Recurrent Pneumonia: w/u in progress getting IVF; ? coulfd this be unusal pulm vasculitis presentation 3. H/O CHF: appears euvolemic vs hypovolemic on exam now 4. CKD 3: bsl Scr 1.7 5. Anemia: multifact; r/o Fe def; may be candidate for procrit REC: r/s IVF, needs UA; sero as noted; possible kidney Bx next week--would need to be off anti-plt meds Time Spent With Patient Time: Total time spent is greater than 50% in coordination of care (as documented) at patient's floor/unit and/or counseling patient: Progress Note: Quality Stroke Does the patient have a stroke diagnosis?: No
[2021-02-05 23:17] LABS: Iron 11 mcg/dL (45-160)
[2021-02-05 23:29] LABS: Percent Iron Saturation 5 % (15-50); Total Iron Binding Capacity 240 mcg/dL (228-428); Unsaturated Iron Binding 229 ug/dL
[2021-02-05 23:34] LABS: Ferritin 810 ng/mL (20-250)
[2021-02-06] VITALS (9 sets, daily range): BP systolic 125–144; BP diastolic 60–79; PULSE 92–112; RESP 18–20; TEMP 36–37.6; O2SAT 90–100
[2021-02-06] MEDS: Amitriptyline HCl 25 MG TABLET PO ×2 (00:01→21:18)
[2021-02-06] MEDS: Gabapentin 300 MG CAPSULE 600 MG PO ×2 (00:01→21:18)
[2021-02-06] MEDS: Docusate Sodium 100 MG CAPSULE PO ×3 (00:02→21:18)
[2021-02-06] MEDS: Azelastine HCl Nasal 137 MCG/Spray 30 ML 2 SPRAY NOSTRIL-B ×2 (00:02→08:21)
[2021-02-06] MEDS: Melatonin 3 MG TABLET 6 MG PO ×2 (00:07→21:18)
[2021-02-06] MEDS: Piperacillin Sodium/Tazobactam 3.375 GM in 0.9 % Sodium Chloride 50 ML IV ×4 (00:30→22:46)
[2021-02-06] MEDS: 0.9 % Sodium Chloride 1,000 ML 100 ML IVCONT ×3 (00:40→21:20)
[2021-02-06] MEDS: guaiFEN/Codeine SF 200/20/10ML 10 ML LIQUID 5 ML PO (00:43)
[2021-02-06] MEDS: 0.9 % Sodium Chloride Flush 3 ML SYRINGE IVFLUSH ×2 (00:44→22:55)
[2021-02-06] MEDS: Albuterol/Iprat 2.5/0.5MG 3 ML AMPUL.NEB INHALE (04:05)
[2021-02-06] MEDS: HYDROmorphone HCl 0.5 MG/0.5 ML SYRINGE IVPUSH ×3 (04:13→14:26)
[2021-02-06] MEDS: Heparin Sodium,Porcine 5,000 UNIT/ML VIAL 5000 UNIT SUBCUT ×3 (04:13→19:41)
[2021-02-06] MEDS: Acetaminophen 325 MG TABLET 650 MG PO ×2 (06:07→19:40)
[2021-02-06] MEDS: diphenhydrAMINE HCL 50 MG/ML VIAL 25 MG IVPUSH (06:25)
[2021-02-06 06:26] LABS: Hematocrit 25.3 % (42-52); Hemoglobin 8.2 g/dl (14.0-18.0); Mean Corpuscular HGB Conc 32.4 g/dl (31.0-36.0); Mean Corpuscular Hemoglobin 27.2 pg (27.0-33.0); Mean Corpuscular Volume 83.8 fL (80-98); Platelet Count 160 X10*3/uL (160-400); Red Blood Count 3.02 X10*6/uL (4.60-5.80); Red Cell Distribution Width 14.6 % (11.0-16.0); White Blood Count 12.1 X10*3/uL (4.8-10.8)
[2021-02-06 06:55] LABS: Glucose, Whole Blood 309 mg/dL (60-115)
[2021-02-06 07:55] LABS: Anion Gap 19 (12-20); Blood Urea Nitrogen 53 mg/dL (9-16); Calcium 8.5 mg/dL (8.4-10.2); Carbon Dioxide 22 mmol/L (22-29); Chloride 95 mmol/L (96-108); Creatinine Clr Calc Pharmacy 26.3; Estimated Glomerular Filt Rate 18; Glucose Fasting 308 mg/dL (60-99); Potassium 4.3 mmol/L (3.3-5.1); Sodium 132 mmol/L (135-145)
[2021-02-06] MEDS: Clopidogrel Bisulfate 75 MG TABLET PO (08:20)
[2021-02-06] MEDS: Sertraline HCL 50 MG TABLET 100 MG PO (08:20)
[2021-02-06] MEDS: carvediloL 12.5 MG TABLET PO ×3 (08:21→21:17)
[2021-02-06] MEDS: Insulin Lispro 100 UNIT/ML 3 ML VIAL SUBCUT ×8 (08:21→21:30)
[2021-02-06] MEDS: Fenofibrate 160 MG TABLET PO (08:21)
[2021-02-06] MEDS: Omeprazole 20 MG CAPSULE.DR PO (08:21)
[2021-02-06] MEDS: Aspirin Enteric Coated 81 MG TABLET.DR PO (08:21)
[2021-02-06] MEDS: Gabapentin 300 MG CAPSULE PO (08:21)
--- NOTE | 2021-02-06 10:15 | PM.PNCARD ---
Subjective Subjective Date of Service: 02/06/21 <PHUC Hammer - Last Filed: 02/06/21 10:26> 02/06/21 <Yayo Barba MD - Last Filed: 02/06/21 14:51> Principal diagnosis: CAD, CABG, Ischemic CMP, PNA <PHUC Hammer - Last Filed: 02/06/21 10:26> Interval history: Cardiology follow up for CAD, CABG, Ischemic CMP. Seen at 0920. Today he is observed sitting in recliner, no acute distress. He reports breathing is improving. No cough. No PND, orthopnea or edema. Chest/ back discomfort with deep inspiration. No other CPs. No palpitation, dizziness. Reports steadiness on feet. Did not sleep well last night. on speaker phone. <PHUC Hammer Last Filed: 02/06/21 10:26> Review of Systems Review of Systems as above <PHUC Hammer - Last Filed: 02/06/21 10:26> Physical Exam Vital Signs: Last Vital Signs Temp 98 F 02/06/21 06:53 Pulse 104 H 02/06/21 06:53 Resp 20 02/06/21 06:53 BP 142/69 H 02/06/21 06:53 Pulse Ox 92 02/06/21 06:53 Body Mass Index 30.4 <PHUC Hammer - Last Filed: 02/06/21 10:26> Const General: cooperative, no acute distress, alert and awake <PHUC Hammer - Last Filed: 02/06/21 10:26> Orientation/consciousness: patient oriented x3 <PHUC Hammer Last Filed: 02/06/21 10:26> Neck Neck: Yes normal visual inspection and Yes no JVD <PHUC Hammer Last Filed: 02/06/21 10:26> Resp Effort & Inspection: normal respiratory effort, able to speak in complete sentences and not labored <PHUC Hammer Last Filed: 02/06/21 10:26> Auscultation: clear to auscultation bilaterally, no rhonchi, no wheezes and diminished lung sounds <PHUC Hammer - Last Filed: 02/06/21 10:26> Cardio Palpation: normal PMI <PHUC Hammer Last Filed: 02/06/21 10:26> Rate: regular rate <RONAN HammerC Jaswinder Last Filed: 02/06/21 10:26> Rhythm: regular rhythm <PHUC Hammer Last Filed: 02/06/21 10:26> Heart sounds: S1 normal heart sound present and S2 normal heart sound present <RONAN HammerC - Last Filed: 02/06/21 10:26> Peripheral pulses: Peripheral pulses 2+ throughout <PHUC Hammer - Last Filed: 02/06/21 10:26> GI Inspection: Yes normal to inspection <PHUC Hammer - Last Filed: 02/06/21 10:26> Neuro General: patient oriented x3 <PHUC Hammer Last Filed: 02/06/21 10:26> Extrem General: Yes normal to inspection and No edema <RONAN HammerC - Last Filed: 02/06/21 10:26> Results Labs and Meds Result diagrams: : 02/06/21 06:02 02/06/21 06:02 <PHUC Hammer - Last Filed: 02/06/21 10:26> Lab results: Laboratory Results - last 24 hr 02/04/21 02/04/21 02/05/21 04:09 17:40 06:06 WBC RBC Hgb Hct MCV MCH MCHC RDW Plt Count MPV Absolute Nucleated RBC Nucleated RBC % (auto) Sodium Potassium Chloride Carbon Dioxide Anion Gap BUN Creatinine Estim Creat Clear Calc Estimated GFR POC Glucose Fasting Glucose Calcium Iron 11 L TIBC 240 % Saturation 5 L Unsat Iron Binding 229 Ferritin 810 H NT-Pro-B Natriuret Pep 3970 H Urine Eosinophils % 0.0 02/05/21 02/05/21 02/05/21 11:11 15:55 19:50 WBC RBC Hgb Hct MCV MCH MCHC RDW Plt Count MPV Absolute Nucleated RBC Nucleated RBC % (auto) Sodium Potassium Chloride Carbon Dioxide Anion Gap BUN Creatinine Estim Creat Clear Calc Estimated GFR POC Glucose 326 H 164 H 128 H Fasting Glucose Calcium Iron TIBC % Saturation Unsat Iron Binding Ferritin NT-Pro-B Natriuret Pep Urine Eosinophils % 02/06/21 02/06/21 02/06/21 06:02 06:02 06:53 WBC 12.1 H RBC 3.02 L Hgb 8.2 L Hct 25.3 L MCV 83.8 MCH 27.2 MCHC 32.4 RDW 14.6 Plt Count 160 MPV 12.0 Absolute Nucleated RBC 0.000 Nucleated RBC % (auto) 0.0 Sodium 132 L Potassium 4.3 Chloride 95 L Carbon Dioxide 22 Anion Gap 19 BUN 53 H Creatinine 3.71 H Estim Creat Clear Calc 26.3 Estimated GFR 18 POC Glucose 309 H Fasting Glucose 308 H Calcium 8.5 Iron TIBC % Saturation Unsat Iron Binding Ferritin NT-Pro-B Natriuret Pep Urine Eosinophils % <PHUC Hammer - Last Filed: 02/06/21 10:26> Imaging Radiologist's impression: Impressions Chest X-Ray 02/05/21 19:34 IMPRESSION: No significant change in moderate opacity/consolidation along the left upper lobe lateral segment and left lower lobe lateral segment. There is evidence of previous CABG and a defibrillator generator along the left chest wall. <PHUC Hammer - Last Filed: 02/06/21 10:26> Progress Note: A&P Assessment and plan (1) CAD (coronary artery disease): Status: Acute <PHUC Hammer - Last Filed: 02/06/21 10:26> Assessment and Plan: Hx CAD with 2 vessel CABG 02/2019. Stable at present without report of anginal sounding symptoms. Has known Ischemic CMP with last EF 30-35%. Sub Q ICD in place. He does not appear fluid overloaded at present. Continue with medical mgt for stable CAD including aspirin, plavix, carvedilol, atorvastatin. Aspirin and Plavix can be held as needed for kidney biopsy and plan to restart as soon as clear by nephrology to do so. Obtain EKG if he reports chest discomfort that is not pleuritic. Watch for signs of fluid overload. Ongoing mgt for his PNA as directed by hospitalist. Ongoing mgt of MAURI as directed by nephrology. <Amanda Henry, CALL CENTER TEAM LEADER-C - Last Filed: 02/06/21 10:26> (2) S/P CABG x 2: Status: Acute <Amanda Aguayo PHUC Henry - Last Filed: 02/06/21 10:26> (3) Ischemic cardiomyopathy: Status: Acute <Amanda Aguayo PHUC Henry - Last Filed: 02/06/21 10:26> (4) ICD (implantable cardioverter-defibrillator) in place: Status: Acute <Amanda Dede PHUC Henry - Last Filed: 02/06/21 10:26> (5) Pneumonia: Status: Acute <Amanda Dede PHUC Henry - Last Filed: 02/06/21 10:26> (6) Renal failure (ARF), acute on chronic: Status: Acute <Amanda Aguayo PHUC Henry - Last Filed: 02/06/21 10:26> Fall Risk Details Current Medications: Current Medications Generic Name Dose Route Start Last Admin Trade Name Taiwoq PRN Reason Stop Dose Admin Acetaminophen 650 mg 02/04/21 02:34 02/06/21 06:07 Acetaminophen 325 Mg Tablet PO 650 mg Q6H PRN Administration Pain, Mild (Pain Scale 1-3) Albuterol/Ipratropium 3 ml 02/04/21 22:08 02/06/21 04:05 Albuterol/Iprat 2.5/0.5mg 3 Ml Ampul.Neb INHALE 3 ml RQ4H PRN Administration Shortness of Breath/Wheezing Amitriptyline HCl 25 mg 02/04/21 21:00 02/06/21 00:01 Amitriptyline Hcl 25 Mg Tablet PO 25 mg BEDTIME MAGUI Administration Aspirin 81 mg 02/04/21 09:00 02/06/21 08:21 Aspirin Enteric Coated 81 Mg Tablet.Dr PO 81 mg DAILY MAGUI Administration Atorvastatin Calcium 80 mg 02/04/21 21:00 02/06/21 00:00 Atorvastatin Calcium 80 Mg Tablet PO 80 mg BEDTIME MAGUI Administration Azelastine HCl 2 spray 02/04/21 09:00 02/06/21 08:21 Azelastine Hcl Nasal 137 Mcg/[place] 30 Ml NOSTRIL-B 2 spray BID MAGUI Administration Carvedilol 12.5 mg 02/04/21 09:00 02/06/21 08:21 Carvedilol 12.5 Mg Tablet PO 12.5 mg BID MAGUI Administration Protocol Clopidogrel Bisulfate 75 mg 02/04/21 09:00 02/06/21 08:20 Clopidogrel Bisulfate 75 Mg Tablet PO 75 mg DAILY MAGUI Administration Dextrose 25 gm 02/04/21 02:40 Dextrose 50 % 25 Gm/50 Ml Vial IVPUSH Q15M PRN per Hypoglycemia Standing Ord. Protocol Docusate Sodium 100 mg 02/04/21 09:00 02/06/21 08:21 Docusate Sodium 100 Mg Capsule PO 100 mg BID MAGUI Administration Fenofibrate 160 mg 02/04/21 09:00 02/06/21 08:21 Fenofibrate 160 Mg Tablet PO 160 mg DAILY MAGUI Administration Fluticasone/Vilanterol 1 puff 02/04/21 09:00 02/05/21 13:46 Fluticasone/Vilanterol 100/25 Blst.W.Dev INHALE Not Given DAILY [facility] Gabapentin 600 mg 02/04/21 21:00 02/06/21 00:01 Gabapentin 300 Mg Capsule PO 600 mg BEDTIME MAGUI Administration Gabapentin 300 mg 02/04/21 09:00 02/06/21 08:21 Gabapentin 300 Mg Capsule PO 300 mg DAILY MAGUI Administration Glucose 15 gm 02/04/21 02:40 Glucose Gel 15 Gm Gel..Gram. PO Q15M PRN per Hypoglycemia Standing Ord. Protocol Heparin Sodium (Porcine) 5,000 unit 02/05/21 12:45 02/06/21 04:13 Heparin Sodium,Porcine 5,000 Unit/Ml Vial SUBCUT 5,000 unit Q8H MAGUI Administration Hydromorphone HCl 0.5 mg 02/04/21 02:34 02/06/21 08:39 Hydromorphone Hcl 0.5 Mg/0.5 Ml Syringe IVPUSH 0.5 mg Q4H PRN Administration Pain, Severe (Pain Scale 7-10) Piperacillin Sod/Tazobactam 50 mls @ 100 mls/hr 02/04/21 07:00 02/06/21 07:27 Sod 3.375 gm/ Sodium Chloride IV Infused Q8H MAGUI Infusion Sodium Chloride 1,000 mls @ 100 mls/hr 02/05/21 22:45 02/06/21 08:22 Ns IVCONT Not Given .Q10H [facility] Insulin Glargine 40 unit 02/05/21 21:00 02/06/21 00:03 Insulin Glargine,Hum.Rec.Anlog 100 Unit/Ml 10 Ml Vial SUBCUT Not Given BEDTIME [facility] Insulin Human Lispro 0 - 10 unit 02/04/21 07:30 02/06/21 08:21 Insulin Lispro 100 Unit/Ml 3 Ml Vial SUBCUT 8 unit QIDACHS [facility] Administration Protocol Insulin Human Lispro 5 unit 02/05/21 11:30 02/06/21 08:21 Insulin Lispro 100 Unit/Ml 3 Ml Vial SUBCUT 5 unit QIDACHS [facility] Administration Melatonin 6 mg 02/04/21 02:34 02/06/21 00:07 Melatonin 3 Mg Tablet PO 6 mg BEDTIME PRN Administration Insomnia Omeprazole 20 mg 02/04/21 09:00 02/06/21 08:21 Omeprazole 20 Mg Capsule. PO 20 mg DAILY MAGUI Administration Ondansetron HCl 4 mg 02/04/21 03:24 02/06/21 04:13 Ondansetron Hcl 4 Mg/2 Ml Vial IVPUSH 4 mg Q8H PRN Administration Nausea and Vomiting Pharmacy Consult 1 each 02/04/21 02:34 Consult Rx Vancomycin Dosing MISCELLANE DAILY PRN Consult order Sertraline HCl 100 mg 02/04/21 09:00 02/06/21 08:20 Sertraline Hcl 50 Mg Tablet PO 100 mg DAILY MAGUI Administration Sodium Chloride 3 ml 02/04/21 08:00 02/06/21 08:22 0.9 % Sodium Chloride Flush 3 Ml Syringe IVFLUSH Not Given QSHIFT [facility] Tizanidine HCl 4 mg 02/04/21 02:41 Tizanidine Hcl 4 Mg Tablet PO BEDTIME PRN muscle spasm <PHUC Hammer - Last Filed: 02/06/21 10:26> Time Spent With Patient Time: Total time spent is greater than 50% in coordination of care (as documented) at patient's floor/unit and/or counseling patient: <PHUC aHmmer - Last Filed: 02/06/21 10:26> Time with patient: 15 - 24 minutes <PHUC Hammer - Last Filed: 02/06/21 10:26> Progress Note: Quality Stroke Does the patient have a stroke diagnosis?: No <PHUC Hammer - Last Filed: 02/06/21 10:26> Procedures Date of Service Date of Service: 02/06/21 <PHUC Hammer - Last Filed: 02/06/21 10:26>
[2021-02-06 11:24] LABS: Glucose, Whole Blood 245 mg/dL (60-115)
--- NOTE | 2021-02-06 11:28 | PM.PNNEP ---
Subjective Subjective Date of Service: 02/06/21 Principal diagnosis: CAD, CABG, Ischemic CMP, PNA Interval history: seen and examined, events noted Feeling better this am increase UOP on IVF Physical Exam Vital Signs: Vital Signs: Last Vital Signs Temp 96.8 F 02/06/21 11:05 Pulse 92 02/06/21 11:05 Resp 18 02/06/21 11:05 BP 135/79 02/06/21 11:05 Pulse Ox 91 L 02/06/21 11:05 Body Mass Index 30.4 Chest: Chest palpation & inspection: normal inspection of the chest Resp: Auscultation: rhonchi and diminished lung sounds Cardio: Jugular venous distension: no JVD Objective Data Labs CBC & Chem 7: 02/06/21 06:02 02/06/21 06:02 Labs: Laboratory Results - last 24 hr 02/04/21 02/05/21 02/05/21 04:09 06:06 11:11 WBC RBC Hgb Hct MCV MCH MCHC RDW Plt Count MPV Absolute Nucleated RBC Nucleated RBC % (auto) Sodium Potassium Chloride Carbon Dioxide Anion Gap BUN Creatinine Estim Creat Clear Calc Estimated GFR POC Glucose 326 H Fasting Glucose Calcium Iron 11 L TIBC 240 % Saturation 5 L Unsat Iron Binding 229 Ferritin 810 H NT-Pro-B Natriuret Pep 3970 H 02/05/21 02/05/21 02/06/21 15:55 19:50 06:02 WBC 12.1 H RBC 3.02 L Hgb 8.2 L Hct 25.3 L MCV 83.8 MCH 27.2 MCHC 32.4 RDW 14.6 Plt Count 160 MPV 12.0 Absolute Nucleated RBC 0.000 Nucleated RBC % (auto) 0.0 Sodium Potassium Chloride Carbon Dioxide Anion Gap BUN Creatinine Estim Creat Clear Calc Estimated GFR POC Glucose 164 H 128 H Fasting Glucose Calcium Iron TIBC % Saturation Unsat Iron Binding Ferritin NT-Pro-B Natriuret Pep 02/06/21 02/06/21 02/06/21 06:02 06:53 11:05 WBC RBC Hgb Hct MCV MCH MCHC RDW Plt Count MPV Absolute Nucleated RBC Nucleated RBC % (auto) Sodium 132 L Potassium 4.3 Chloride 95 L Carbon Dioxide 22 Anion Gap 19 BUN 53 H Creatinine 3.71 H Estim Creat Clear Calc 26.3 Estimated GFR 18 POC Glucose 309 H 245 H Fasting Glucose 308 H Calcium 8.5 Iron TIBC % Saturation Unsat Iron Binding Ferritin NT-Pro-B Natriuret Pep Microbiology Microbiology Results: Microbiology 02/03/21 22:49 Blood - Venous Blood Culture - Preliminary No growth after 48 hours. 02/03/21 22:31 Blood - Venous Blood Culture - Preliminary No growth after 48 hours. Procedures Date of Service Date of Service: 02/06/21 Assessment & Plan Assessment and plan (1) Pneumonia: Status: Acute (2) S/P CABG x 2: Status: Acute (3) Ischemic cardiomyopathy: Status: Acute Assessment and Plan: 1. Non-Oliguric MAURI: wide DDx and sero and urine studies ordered; FENa < 1% suggests renal hypoperfusion and will r/s IVF; SCr was 1.7 earlier this month DDx pre-renal: low FENa AGN or AIN related to infection vs non-infectious related Acute Obs: doubtful given neg CT for hydr Multifact ATN Stillneed UA ( I will reorder) 2. Recurrent Pneumonia: w/u in progress getting IVF; ? coulfd this be unusal pulm vasculitis presentation 3. H/O CHF: appears euvolemic vs hypovolemic on exam now 4. CKD 3: bsl Scr 1.7 5. Anemia: multifact; r/o Fe def; may be candidate for procrit REC: cont IVF, again reordered UA; sero as noted; possible kidney Bx next week--would need to be off anti-plt meds Card olk with holding asp and plavix in proep of possible Bx next week Time Spent With Patient Time: Total time spent is greater than 50% in coordination of care (as documented) at patient's floor/unit and/or counseling patient: Progress Note: Quality Stroke Does the patient have a stroke diagnosis?: No
--- NOTE | 2021-02-06 11:50 | P.PNIM_ITS ---
Subjective Subjective Date of Service: 02/06/21 Interval History: feeling much better today Constitutional Constitutional: Reports no additional constitutional complaints ENT Ears, Nose, Mouth, and Throat: Reports system reviewed and no additional complaints, except as documented Physical Exam Vital Signs: Vital Signs: Last Vital Signs Temp 96.8 F 02/06/21 11:05 Pulse 92 02/06/21 11:05 Resp 18 02/06/21 11:05 BP 135/79 02/06/21 11:05 Pulse Ox 91 L 02/06/21 11:05 Body Mass Index 30.4 General: lethargic ill appearing, resp:? Crackles CVS: S1,S2,RRR GI: soft, non tender, non distended Neuro:? motor grossly intact Psych: appropriate affect Objective Data Current Medications Generic Name Dose Route Start Last Admin Trade Name Freq PRN Reason Stop Dose Admin Acetaminophen 650 mg 02/04/21 02:34 02/06/21 06:07 Acetaminophen 325 Mg Tablet PO 650 mg Q6H PRN Administration Pain, Mild (Pain Scale 1-3) Albuterol/Ipratropium 3 ml 02/04/21 22:08 02/06/21 04:05 Albuterol/Iprat 2.5/0.5mg 3 Ml Ampul.Neb INHALE 3 ml RQ4H PRN Administration Shortness of Breath/Wheezing Amitriptyline HCl 25 mg 02/04/21 21:00 02/06/21 00:01 Amitriptyline Hcl 25 Mg Tablet PO 25 mg BEDTIME MAGUI Administration Atorvastatin Calcium 80 mg 02/04/21 21:00 02/06/21 00:00 Atorvastatin Calcium 80 Mg Tablet PO 80 mg BEDTIME MAGUI Administration Azelastine HCl 2 spray 02/04/21 09:00 02/06/21 08:21 Azelastine Hcl Nasal 137 Mcg/[place] 30 Ml NOSTRIL-B 2 spray BID MAGUI Administration Carvedilol 12.5 mg 02/04/21 09:00 02/06/21 08:21 Carvedilol 12.5 Mg Tablet PO 12.5 mg BID MAGUI Administration Protocol Dextrose 25 gm 02/04/21 02:40 Dextrose 50 % 25 Gm/50 Ml Vial IVPUSH Q15M PRN per Hypoglycemia Standing Ord. Protocol Docusate Sodium 100 mg 02/04/21 09:00 08/06/21 08:21 Docusate Sodium 100 Mg Capsule PO 100 mg BID MAGUI Administration Fenofibrate 160 mg 02/04/21 09:00 02/06/21 08:21 Fenofibrate 160 Mg Tablet PO 160 mg DAILY MAGUI Administration Fluticasone/Vilanterol 1 puff 02/04/21 09:00 02/05/21 13:46 Fluticasone/Vilanterol 100/25 Blst.W.Dev INHALE Not Given DAILY [facility] Gabapentin 600 mg 02/04/21 21:00 02/06/21 00:01 Gabapentin 300 Mg Capsule PO 600 mg BEDTIME MAGUI Administration Gabapentin 300 mg 02/04/21 09:00 02/06/21 08:21 Gabapentin 300 Mg Capsule PO 300 mg DAILY MAGUI Administration Glucose 15 gm 02/04/21 02:40 Glucose Gel 15 Gm Gel..Gram. PO Q15M PRN per Hypoglycemia Standing Ord. Protocol Heparin Sodium (Porcine) 5,000 unit 02/05/21 12:45 02/06/21 04:13 Heparin Sodium,Porcine 5,000 Unit/Ml Vial SUBCUT 5,000 unit Q8H MAGUI Administration Hydromorphone HCl 0.5 mg 02/04/21 02:34 02/06/21 08:39 Hydromorphone Hcl 0.5 Mg/0.5 Ml Syringe IVPUSH 0.5 mg Q4H PRN Administration Pain, Severe (Pain Scale 7-10) Piperacillin Sod/Tazobactam 50 mls @ 100 mls/hr 02/04/21 07:00 02/06/21 07:27 Sod 3.375 gm/ Sodium Chloride IV Infused Q8H MAGUI Infusion Sodium Chloride 1,000 mls @ 100 mls/hr 02/05/21 22:45 02/06/21 10:44 Ns IVCONT Infused .Q10H [facility] Infusion Insulin Glargine 40 unit 02/05/21 21:00 02/06/21 00:03 Insulin Glargine,Hum.Rec.Anlog 100 Unit/Ml 10 Ml Vial SUBCUT Not Given BEDTIME [facility] Insulin Human Lispro 0 - 10 unit 02/04/21 07:30 02/06/21 08:21 Insulin Lispro 100 Unit/Ml 3 Ml Vial SUBCUT 8 unit QIDACHS MAGUI Administration Protocol Insulin Human Lispro 5 unit 02/05/21 11:30 02/06/21 08:21 Insulin Lispro 100 Unit/Ml 3 Ml Vial SUBCUT 5 unit QIDACHS MAGUI Administration Melatonin 6 mg 02/04/21 02:34 02/06/21 00:07 Melatonin 3 Mg Tablet PO 6 mg BEDTIME PRN Administration Insomnia Omeprazole 20 mg 02/04/21 09:00 02/06/21 08:21 Omeprazole 20 Mg Capsule.Dr PO 20 mg DAILY MAGUI Administration Ondansetron HCl 4 mg 02/04/21 03:24 02/06/21 04:13 Ondansetron Hcl 4 Mg/2 Ml Vial IVPUSH 4 mg Q8H PRN Administration Nausea and Vomiting Pharmacy Consult 1 each 02/04/21 02:34 Consult Rx Vancomycin Dosing MISCELLANE DAILY PRN Consult order Sertraline HCl 100 mg 02/04/21 09:00 02/06/21 08:20 Sertraline Hcl 50 Mg Tablet PO 100 mg DAILY MAGUI Administration Sodium Chloride 3 ml 02/04/21 08:00 02/06/21 08:22 0.9 % Sodium Chloride Flush 3 Ml Syringe IVFLUSH Not Given QSHIFT MAGUI Tizanidine HCl 4 mg 02/04/21 02:41 Tizanidine Hcl 4 Mg Tablet PO BEDTIME PRN muscle spasm Labs CBC & Chem 7: 02/06/21 06:02 02/06/21 06:02 Labs: Laboratory Results - last 24 hr 02/03/21 02/04/21 02/04/21 20:18 04:09 04:09 MCV MCH MCHC RDW Plt Count MPV Absolute Nucleated RBC Nucleated RBC % (auto) Anion Gap Creatinine 3.32 H 3.12 H Estim Creat Clear Calc Estimated GFR POC Glucose Fasting Glucose Calcium Iron TIBC % Saturation Unsat Iron Binding Ferritin NT-Pro-B Natriuret Pep 3970 H 02/05/21 02/05/21 02/05/21 06:06 15:55 19:50 MCV MCH MCHC RDW Plt Count MPV Absolute Nucleated RBC Nucleated RBC % (auto) Anion Gap Creatinine 3.34 H Estim Creat Clear Calc Estimated GFR POC Glucose 164 H 128 H Fasting Glucose Calcium Iron 11 L TIBC 240 % Saturation 5 L Unsat Iron Binding 229 Ferritin 810 H NT-Pro-B Natriuret Pep 02/06/21 02/06/21 02/06/21 06:02 06:02 06:53 MCV 83.8 MCH 27.2 MCHC 32.4 RDW 14.6 Plt Count 160 MPV 12.0 Absolute Nucleated RBC 0.000 Nucleated RBC % (auto) 0.0 Anion Gap 19 Creatinine 3.71 H Estim Creat Clear Calc 26.3 Estimated GFR 18 POC Glucose 309 H Fasting Glucose 308 H Calcium 8.5 Iron TIBC % Saturation Unsat Iron Binding Ferritin NT-Pro-B Natriuret Pep 02/06/21 11:05 MCV MCH MCHC RDW Plt Count MPV Absolute Nucleated RBC Nucleated RBC % (auto) Anion Gap Creatinine Estim Creat Clear Calc Estimated GFR POC Glucose 245 H Fasting Glucose Calcium Iron TIBC % Saturation Unsat Iron Binding Ferritin NT-Pro-B Natriuret Pep Microbiology Microbiology Results: Microbiology 02/03/21 22:49 Blood Culture - Preliminary Blood - Venous No growth after 48 hours. 02/03/21 22:31 Blood Culture - Preliminary Blood - Venous No growth after 48 hours. Assessment and Plan (1) Pneumonia: Status: Acute Assessment and Plan: 45M presented with fever and chills severe sepsis present on admission due to pneumonia with risk factors for MDR organisms MRSA screen negative, dced vanco continue zosyn cultures negative so far sepsis improving MAURI on CKD III nephro following, follow up work up, creatinine worsening chornic systolic chf, ischemic asa, statin, beta allison DM with hyperglycemia basal bolus insulin Quality Stroke Does the patient have a stroke diagnosis?: No VTE Prior VTE?: No VTE Risk Level:: Medical - moderate - high VTE Device Contraindication: N/A - Device Ordered VTE Drug Contraindication: Treatment Not Indicated
[2021-02-06 13:06] LABS: Complement C3 82 mg/dL (82-185)
[2021-02-06 16:20] LABS: Glucose, Whole Blood 182 mg/dL (60-115)
[2021-02-06 17:51] LABS: Calcium (PTHI) 8.2 mg/dL (8.6-10.3); PTHI 96 pg/mL (14-64)
[2021-02-06] MEDS: HYDROmorphone HCl 1 MG/ML SYRINGE 0.5 MG IVPUSH ×2 (19:36→22:46)
[2021-02-06 20:30] LABS: Glucose, Whole Blood 239 mg/dL (60-115)
[2021-02-06] MEDS: Atorvastatin Calcium 80 MG TABLET PO ×2 (21:18)
[2021-02-06] MEDS: Insulin Glargine,Hum.rec.anlog 100 UNIT/ML 10 ML VIAL 40 UNIT SUBCUT (21:29)
[2021-02-07] VITALS (10 sets, daily range): BP systolic 134–161; BP diastolic 73–81; PULSE 86–105; RESP 16–20; TEMP 36–36.9; O2SAT 90–94
[2021-02-07] MEDS: guaiFEN/Codeine SF 200/20/10ML 10 ML LIQUID 5 ML PO (01:33)
[2021-02-07] MEDS: Acetaminophen 325 MG TABLET 650 MG PO ×3 (01:34→22:26)
[2021-02-07] MEDS: HYDROmorphone HCl 1 MG/ML SYRINGE 0.5 MG IVPUSH ×3 (03:30→11:42)
[2021-02-07] MEDS: Heparin Sodium,Porcine 5,000 UNIT/ML VIAL 5000 UNIT SUBCUT ×3 (05:18→20:19)
[2021-02-07] MEDS: Piperacillin Sodium/Tazobactam 3.375 GM in 0.9 % Sodium Chloride 50 ML IV ×3 (06:11→22:26)
[2021-02-07 06:47] LABS: Hematocrit 22.6 % (42-52); Hemoglobin 7.4 g/dl (14.0-18.0); Mean Corpuscular HGB Conc 32.7 g/dl (31.0-36.0); Mean Corpuscular Volume 82.5 fL (80-98); Mean Platelet Volume 11.9 fL (9.4-12.4); Platelet Count 159 X10*3/uL (160-400); Red Blood Count 2.74 X10*6/uL (4.60-5.80); Red Cell Distribution Width 14.8 % (11.0-16.0); White Blood Count 11.3 X10*3/uL (4.8-10.8)
[2021-02-07 07:30] LABS: Glucose, Whole Blood 230 mg/dL (60-115)
[2021-02-07] MEDS: Insulin Lispro 100 UNIT/ML 3 ML VIAL SUBCUT ×5 (07:40→20:18)
[2021-02-07] MEDS: Fenofibrate 160 MG TABLET PO (07:40)
[2021-02-07] MEDS: carvediloL 12.5 MG TABLET PO ×2 (07:41→20:20)
[2021-02-07] MEDS: Gabapentin 300 MG CAPSULE PO (07:41)
[2021-02-07] MEDS: Sertraline HCL 50 MG TABLET 100 MG PO (07:41)
[2021-02-07] MEDS: Omeprazole 20 MG CAPSULE.DR PO (07:41)
[2021-02-07] MEDS: Docusate Sodium 100 MG CAPSULE PO ×2 (07:42→20:19)
[2021-02-07] MEDS: 0.9 % Sodium Chloride Flush 3 ML SYRINGE IVFLUSH ×3 (07:42→23:38)
[2021-02-07] MEDS: 0.9 % Sodium Chloride 1,000 ML 100 ML IVCONT (07:50)
[2021-02-07 08:09] LABS: Anion Gap 18 (12-20); Blood Urea Nitrogen 59 mg/dL (9-16); Carbon Dioxide 21 mmol/L (22-29); Chloride 98 mmol/L (96-108); Creatinine Clr Calc Pharmacy 22.2; Estimated Glomerular Filt Rate 15; Glucose Fasting 228 mg/dL (60-99); Potassium 3.7 mmol/L (3.3-5.1); Sodium 133 mmol/L (135-145)
[2021-02-07] MEDS: Azelastine HCl Nasal 137 MCG/Spray 30 ML 2 SPRAY NOSTRIL-B ×2 (09:53→20:20)
--- NOTE | 2021-02-07 10:29 | P.PNIM_ITS ---
Subjective Subjective Date of Service: 02/07/21 Interval History: weak Constitutional Constitutional: Reports no additional constitutional complaints Eyes Eyes: Reports no additional eye complaints Physical Exam Vital Signs: Vital Signs: Last Vital Signs Temp 97.6 F 02/07/21 07:30 Pulse 94 02/07/21 07:41 Resp 17 02/07/21 07:30 BP 134/73 02/07/21 07:41 Pulse Ox 92 02/07/21 07:30 Body Mass Index 30.4 General: lethargic ill appearing, resp:? Crackles CVS: S1,S2,RRR GI: soft, non tender, non distended Neuro:? motor grossly intact Psych: appropriate affect Objective Data Current Medications Generic Name Dose Route Start Last Admin Trade Name Freq PRN Reason Stop Dose Admin Acetaminophen 650 mg 02/04/21 02:34 02/07/21 10:20 Acetaminophen 325 Mg Tablet PO 650 mg Q6H PRN Administration Pain, Mild (Pain Scale 1-3) Albuterol/Ipratropium 3 ml 02/04/21 22:08 02/06/21 04:05 Albuterol/Iprat 2.5/0.5mg 3 Ml Ampul.Neb INHALE 3 ml RQ4H PRN Administration Shortness of Breath/Wheezing Amitriptyline HCl 25 mg 02/04/21 21:00 02/06/21 21:18 Amitriptyline Hcl 25 Mg Tablet PO 25 mg BEDTIME MAGUI Administration Atorvastatin Calcium 80 mg 02/04/21 21:00 02/06/21 21:18 Atorvastatin Calcium 80 Mg Tablet PO 80 mg BEDTIME MAGUI Administration Azelastine HCl 2 spray 02/04/21 09:00 02/07/21 09:53 Azelastine Hcl Nasal 137 Mcg/[place] 30 Ml NOSTRIL-B 2 spray BID MAGUI Administration Carvedilol 12.5 mg 02/04/21 09:00 02/07/21 07:41 Carvedilol 12.5 Mg Tablet PO 12.5 mg BID MAGUI Administration Protocol Dextrose 25 gm 02/04/21 02:40 Dextrose 50 % 25 Gm/50 Ml Vial IVPUSH Q15M PRN per Hypoglycemia Standing Ord. Protocol Docusate Sodium 100 mg 02/04/21 09:00 02/07/21 07:42 Docusate Sodium 100 Mg Capsule PO 100 mg BID MAGUI Administration Fenofibrate 160 mg 02/04/21 09:00 02/07/21 07:40 Fenofibrate 160 Mg Tablet PO 160 mg DAILY MAGUI Administration Fluticasone/Vilanterol 1 puff 02/04/21 09:00 02/06/21 14:39 Fluticasone/Vilanterol 100/25 Blst.W.Dev INHALE Not Given DAILY MAGUI Gabapentin 600 mg 02/04/21 21:00 02/06/21 21:18 Gabapentin 300 Mg Capsule PO 600 mg BEDTIME MAGUI Administration Gabapentin 300 mg 02/04/21 09:00 02/07/21 07:41 Gabapentin 300 Mg Capsule PO 300 mg DAILY MAGUI Administration Glucose 15 gm 02/04/21 02:40 Glucose Gel 15 Gm Gel..Gram. PO Q15M PRN per Hypoglycemia Standing Ord. Protocol Heparin Sodium (Porcine) 5,000 unit 02/05/21 12:45 02/07/21 05:18 Heparin Sodium,Porcine 5,000 Unit/Ml Vial SUBCUT 5,000 unit Q8H MAGUI Administration Hydromorphone HCl 0.5 mg 02/06/21 15:28 02/07/21 07:42 Hydromorphone Hcl 1 Mg/Ml Syringe IVPUSH 0.5 mg Q4H PRN Administration Pain, Severe (Pain Scale 7-10) Piperacillin Sod/Tazobactam 50 mls @ 100 mls/hr 02/04/21 07:00 02/07/21 06:41 Sod 3.375 gm/ Sodium Chloride IV Infused Q8H MAGUI Infusion Insulin Glargine 40 unit 02/05/21 21:00 02/06/21 21:29 Insulin Glargine,Hum.Rec.Anlog 100 Unit/Ml 10 Ml Vial SUBCUT 40 unit BEDTIME MAGUI Administration Insulin Human Lispro 0 - 10 unit 02/04/21 07:30 02/07/21 07:40 Insulin Lispro 100 Unit/Ml 3 Ml Vial SUBCUT 4 unit QIDACHS [facility] Administration Protocol Insulin Human Lispro 5 unit 02/05/21 11:30 02/07/21 07:41 Insulin Lispro 100 Unit/Ml 3 Ml Vial SUBCUT 5 unit QIDACHS MAGUI Administration Melatonin 6 mg 02/04/21 02:34 02/06/21 21:18 Melatonin 3 Mg Tablet PO 6 mg BEDTIME PRN Administration Insomnia Omeprazole 20 mg 02/04/21 09:00 02/07/21 07:41 Omeprazole 20 Mg Capsule.Dr PO 20 mg DAILY MAGUI Administration Ondansetron HCl 4 mg 02/04/21 03:24 02/06/21 14:26 Ondansetron Hcl 4 Mg/2 Ml Vial IVPUSH 4 mg Q8H PRN Administration Nausea and Vomiting Pharmacy Consult 1 each 02/04/21 02:34 Consult Rx Vancomycin Dosing MISCELLANE DAILY PRN Consult order Sertraline HCl 100 mg 02/04/21 09:00 02/07/21 07:41 Sertraline Hcl 50 Mg Tablet PO 100 mg DAILY MAGUI Administration Sodium Chloride 3 ml 02/04/21 08:00 02/07/21 07:42 0.9 % Sodium Chloride Flush 3 Ml Syringe IVFLUSH 3 ml QSHIFT MAGUI Administration Tizanidine HCl 4 mg 02/04/21 02:41 Tizanidine Hcl 4 Mg Tablet PO BEDTIME PRN muscle spasm Labs CBC & Chem 7: 02/07/21 06:02 02/07/21 06:02 Labs: Laboratory Results - last 24 hr 02/03/21 02/04/21 02/05/21 20:18 04:09 06:06 Hgb 9.8 L 8.8 L 8.7 L MCV MCH MCHC RDW Plt Count MPV Absolute Nucleated RBC Nucleated RBC % (auto) Anion Gap Estim Creat Clear Calc Estimated GFR POC Glucose Fasting Glucose Calcium PTH Intact Calcium (PTH Intact) Complement C3 Complement C4 02/05/21 02/05/21 02/06/21 07:35 07:35 06:02 Hgb 8.2 L MCV MCH MCHC RDW Plt Count MPV Absolute Nucleated RBC Nucleated RBC % (auto) Anion Gap Estim Creat Clear Calc Estimated GFR POC Glucose Fasting Glucose Calcium PTH Intact 96 H Calcium (PTH Intact) 8.2 L Complement C3 82 Complement C4 <3 L 02/06/21 02/06/21 02/06/21 11:05 16:11 20:23 Hgb MCV MCH MCHC RDW Plt Count MPV Absolute Nucleated RBC Nucleated RBC % (auto) Anion Gap Estim Creat Clear Calc Estimated GFR POC Glucose 245 H 182 H 239 H Fasting Glucose Calcium PTH Intact Calcium (PTH Intact) Complement C3 Complement C4 02/07/21 02/07/21 02/07/21 06:02 06:02 07:23 Hgb 7.4 L MCV 82.5 MCH 27.0 MCHC 32.7 RDW 14.8 Plt Count 159 L MPV 11.9 Absolute Nucleated RBC 0.000 Nucleated RBC % (auto) 0.0 Anion Gap 18 Estim Creat Clear Calc 22.2 Estimated GFR 15 POC Glucose 230 H Fasting Glucose 228 H Calcium 8.0 L PTH Intact Calcium (PTH Intact) Complement C3 Complement C4 Assessment and Plan (1) Pneumonia: Status: Acute Assessment and Plan: 45M presented with fever and chills severe sepsis present on admission due to pneumonia with risk factors for MDR organisms MRSA screen negative, dced vanco continue zosyn cultures negative so far sepsis improving MAURI on CKD III nephro following, follow up work up, low c4, renal function worsening, will dc ivf chornic systolic chf, ischemic asa, statin, beta allison DM with hyperglycemia basal bolus insulin Quality Stroke Does the patient have a stroke diagnosis?: No VTE Prior VTE?: No VTE Risk Level:: Medical - moderate - high VTE Device Contraindication: N/A - Device Ordered VTE Drug Contraindication: Treatment Not Indicated
--- NOTE | 2021-02-07 11:01 | PM.PNCARD ---
Subjective Subjective Date of Service: 02/07/21 Principal diagnosis: CAD, CABG, Ischemic CMP, PNA, ARF Interval history: Cardiology follow up for CAD, CABG hx, ischemic CMP. Seen at 0945. Today he reports low back pains. No chest pains or pressure. No palpitation. Breathing unlabored at present. Was more short of breath last brittny and O2 dose increased. Wearing O2 4liters currently. Intermittent cough reported, some chest wall discomfort with cough. No edema. Spoke with on phone. Review of Systems Review of Systems as above Physical Exam Vital Signs: Last Vital Signs Temp 97.6 F 02/07/21 07:30 Pulse 94 02/07/21 07:41 Resp 17 02/07/21 07:30 BP 134/73 02/07/21 07:41 Pulse Ox 92 02/07/21 07:30 Body Mass Index 30.4 Const General: cooperative, no acute distress, alert and awake Orientation/consciousness: patient oriented x3 Neck Neck: Yes normal visual inspection and Yes JVD (prominent) Resp Effort & Inspection: normal respiratory effort, able to speak in complete sentences and not labored Auscultation: no rales, no rhonchi and wheezes (Scattered expiratory. Lungs diminished.) Cardio Jugular venous distension: JVD present Rate: regular rate Rhythm: regular rhythm Heart sounds: S1 normal heart sound present and S2 normal heart sound present Peripheral pulses: Peripheral pulses 2+ throughout GI Inspection: Yes normal to inspection Neuro General: patient oriented x3 Extrem General: Yes normal to inspection and No edema Results Labs and Meds Result diagrams: 02/07/21 06:02 02/07/21 06:02 Lab results: Laboratory Results - last 24 hr 02/05/21 02/05/21 02/06/21 07:35 07:35 11:05 WBC RBC Hgb Hct MCV MCH MCHC RDW Plt Count MPV Absolute Nucleated RBC Nucleated RBC % (auto) Sodium Potassium Chloride Carbon Dioxide Anion Gap BUN Creatinine Estim Creat Clear Calc Estimated GFR POC Glucose 245 H Fasting Glucose Calcium PTH Intact 96 H Calcium (PTH Intact) 8.2 L Complement C3 82 Complement C4 <3 L 02/06/21 02/06/21 02/07/21 16:11 20:23 06:02 WBC 11.3 H RBC 2.74 L Hgb 7.4 L Hct 22.6 L MCV 82.5 MCH 27.0 MCHC 32.7 RDW 14.8 Plt Count 159 L MPV 11.9 Absolute Nucleated RBC 0.000 Nucleated RBC % (auto) 0.0 Sodium Potassium Chloride Carbon Dioxide Anion Gap BUN Creatinine Estim Creat Clear Calc Estimated GFR POC Glucose 182 H 239 H Fasting Glucose Calcium PTH Intact Calcium (PTH Intact) Complement C3 Complement C4 02/07/21 02/07/21 06:02 07:23 WBC RBC Hgb Hct MCV MCH MCHC RDW Plt Count MPV Absolute Nucleated RBC Nucleated RBC % (auto) Sodium 133 L Potassium 3.7 Chloride 98 Carbon Dioxide 21 L Anion Gap 18 BUN 59 H Creatinine 4.40 H* Estim Creat Clear Calc 22.2 Estimated GFR 15 POC Glucose 230 H Fasting Glucose 228 H Calcium 8.0 L PTH Intact Calcium (PTH Intact) Complement C3 Complement C4 Progress Note: A&P Assessment and plan (1) Ischemic cardiomyopathy: Status: Acute Assessment and Plan: Has known Ischemic CMP with last EF 30-35%. Sub Q ICD in place. He does have acute on chronic renal failure this admit with Cr up to 4.4 this am. Home Torsemide 60mg bid - has been held due to kidney funtion. Has been receiving IV fluids. Fluid balance this admit + 6.8 Liters. On exam he has prominent JVD and some expiratory wheezes. His O2 requirement has increased in last day and currently on 4 liters. He is being treated for his PNA. Will check a CXR this am to help eval for CHF. He may need to be diuresed. Nephrology following as well. Dr Barba will plan to review CXR results. (2) CAD (coronary artery disease): Status: Acute Assessment and Plan: Hx CAD with 2 vessel CABG 02/2019. Stable at present without report of anginal sounding symptoms. Continue with medical mgt for stable CAD including carvedilol, atorvastatin. Aspirin and Plavix are currentyly be held for planned kidney biopsy. Obtain EKG if he reports chest discomfort that is not pleuritic. (3) S/P CABG x 2: Status: Acute (4) Renal failure (ARF), acute on chronic: Status: Acute (5) Pneumonia: Status: Acute Fall Risk Details Current Medications: Current Medications Generic Name Dose Route Start Last Admin Trade Name Freq PRN Reason Stop Dose Admin Acetaminophen 650 mg 02/04/21 02:34 02/07/21 10:20 Acetaminophen 325 Mg Tablet PO 650 mg Q6H PRN Administration Pain, Mild (Pain Scale 1-3) Albuterol/Ipratropium 3 ml 02/04/21 22:08 02/06/21 04:05 Albuterol/Iprat 2.5/0.5mg 3 Ml Ampul.Neb INHALE 3 ml RQ4H PRN Administration Shortness of Breath/Wheezing Amitriptyline HCl 25 mg 02/04/21 21:00 02/06/21 21:18 Amitriptyline Hcl 25 Mg Tablet PO 25 mg BEDTIME MAGUI Administration Atorvastatin Calcium 80 mg 02/04/21 21:00 02/06/21 21:18 Atorvastatin Calcium 80 Mg Tablet PO 80 mg BEDTIME MAGUI Administration Azelastine HCl 2 spray 02/04/21 09:00 02/07/21 09:53 Azelastine Hcl Nasal 137 Mcg/[place] 30 Ml NOSTRIL-B 2 spray BID MAGUI Administration Carvedilol 12.5 mg 02/04/21 09:00 02/07/21 07:41 Carvedilol 12.5 Mg Tablet PO 12.5 mg BID MAGUI Administration Protocol Dextrose 25 gm 02/04/21 02:40 Dextrose 50 % 25 Gm/50 Ml Vial IVPUSH Q15M PRN per Hypoglycemia Standing Ord. Protocol Docusate Sodium 100 mg 02/04/21 09:00 02/07/21 07:42 Docusate Sodium 100 Mg Capsule PO 100 mg BID MAGUI Administration Fenofibrate 160 mg 02/04/21 09:00 02/07/21 07:40 Fenofibrate 160 Mg Tablet PO 160 mg DAILY MAGUI Administration Fluticasone/Vilanterol 1 puff 02/04/21 09:00 02/06/21 14:39 Fluticasone/Vilanterol 100/25 Blst.W.Dev INHALE Not Given DAILY MAGUI Gabapentin 600 mg 02/04/21 21:00 02/06/21 21:18 Gabapentin 300 Mg Capsule PO 600 mg BEDTIME MAGUI Administration Gabapentin 300 mg 02/04/21 09:00 02/07/21 07:41 Gabapentin 300 Mg Capsule PO 300 mg DAILY MAGUI Administration Glucose 15 gm 02/04/21 02:40 Glucose Gel 15 Gm Gel..Gram. PO Q15M PRN per Hypoglycemia Standing Ord. Protocol Heparin Sodium (Porcine) 5,000 unit 02/05/21 12:45 02/07/21 05:18 Heparin Sodium,Porcine 5,000 Unit/Ml Vial SUBCUT 5,000 unit Q8H MAGUI Administration Hydromorphone HCl 0.5 mg 02/06/21 15:28 02/07/21 07:42 Hydromorphone Hcl 1 Mg/Ml Syringe IVPUSH 0.5 mg Q4H PRN Administration Pain, Severe (Pain Scale 7-10) Piperacillin Sod/Tazobactam 50 mls @ 100 mls/hr 02/04/21 07:00 02/07/21 06:41 Sod 3.375 gm/ Sodium Chloride IV Infused Q8H MAGUI Infusion Insulin Glargine 40 unit 02/05/21 21:00 02/06/21 21:29 Insulin Glargine,Hum.Rec.Anlog 100 Unit/Ml 10 Ml Vial SUBCUT 40 unit BEDTIME MAGUI Administration Insulin Human Lispro 0 - 10 unit 02/04/21 07:30 02/07/21 07:40 Insulin Lispro 100 Unit/Ml 3 Ml Vial SUBCUT 4 unit QIDACHS MAGUI Administration Protocol Insulin Human Lispro 5 unit 02/05/21 11:30 02/07/21 07:41 Insulin Lispro 100 Unit/Ml 3 Ml Vial SUBCUT 5 unit QIDACHS MAGUI Administration Melatonin 6 mg 02/04/21 02:34 02/06/21 21:18 Melatonin 3 Mg Tablet PO 6 mg BEDTIME PRN Administration Insomnia Omeprazole 20 mg 02/04/21 09:00 02/07/21 07:41 Omeprazole 20 Mg Capsule. PO 20 mg DAILY MAGUI Administration Ondansetron HCl 4 mg 02/04/21 03:24 02/06/21 14:26 Ondansetron Hcl 4 Mg/2 Ml Vial IVPUSH 4 mg Q8H PRN Administration Nausea and Vomiting Pharmacy Consult 1 each 02/04/21 02:34 Consult Rx Vancomycin Dosing MISCELLANE DAILY PRN Consult order Sertraline HCl 100 mg 02/04/21 09:00 02/07/21 07:41 Sertraline Hcl 50 Mg Tablet PO 100 mg DAILY MAGUI Administration Sodium Chloride 3 ml 02/04/21 08:00 02/07/21 07:42 0.9 % Sodium Chloride Flush 3 Ml Syringe IVFLUSH 3 ml QSHIFT MAGUI Administration Tizanidine HCl 4 mg 08/04/21 02:41 Tizanidine Hcl 4 Mg Tablet PO BEDTIME PRN muscle spasm Time Spent With Patient Time: Total time spent is greater than 50% in coordination of care (as documented) at patient's floor/unit and/or counseling patient: Time with patient: 15 - 24 minutes Progress Note: Quality Stroke Does the patient have a stroke diagnosis?: No Procedures Date of Service Date of Service: 02/07/21
[2021-02-07 11:08] LABS: Glucose, Whole Blood 178 mg/dL (60-115)
[2021-02-07] MEDS: Fluticasone/Vilanterol 100/25 BLST.W.DEV 1 PUFF INHALE (13:31)
[2021-02-07 15:57] LABS: Glucose, Whole Blood 142 mg/dL (60-115)
[2021-02-07] MEDS: HYDROmorphone HCl 1 MG/ML SYRINGE 0.25 MG IVPUSH ×2 (16:11→20:16)
[2021-02-07] MEDS: Furosemide 100 MG/10 ML VIAL 60 MG IVPUSH (17:52)
--- NOTE | 2021-02-07 18:50 | P.PNNP_ITS ---
Subjective Subjective Date of Service: 02/07/21 Principal diagnosis: CAD, CABG, Ischemic CMP, PNA, ARF Interval history: seen and examined, events noted Physical Exam Vital Signs: Vital Signs: Last Vital Signs Temp 96.8 F 02/07/21 15:15 Pulse 86 02/07/21 15:15 Resp 20 02/07/21 15:15 BP 143/78 H 02/07/21 15:15 Pulse Ox 94 02/07/21 15:15 Body Mass Index 30.4 Chest: Chest palpation & inspection: normal inspection of the chest Resp: Auscultation: rhonchi and diminished lung sounds Cardio: Jugular venous distension: no JVD Objective Data Labs CBC & Chem 7: 02/07/21 06:02 02/07/21 06:02 Labs: Laboratory Results - last 24 hr 02/06/21 02/07/21 02/07/21 20:23 06:02 06:02 WBC 11.3 H RBC 2.74 L Hgb 7.4 L Hct 22.6 L MCV 82.5 MCH 27.0 MCHC 32.7 RDW 14.8 Plt Count 159 L MPV 11.9 Absolute Nucleated RBC 0.000 Nucleated RBC % (auto) 0.0 Sodium 133 L Potassium 3.7 Chloride 98 Carbon Dioxide 21 L Anion Gap 18 BUN 59 H Creatinine 4.40 H* Estim Creat Clear Calc 22.2 Estimated GFR 15 POC Glucose 239 H Fasting Glucose 228 H Calcium 8.0 L 02/07/21 02/07/21 02/07/21 07:23 11:01 15:51 WBC RBC Hgb Hct MCV MCH MCHC RDW Plt Count MPV Absolute Nucleated RBC Nucleated RBC % (auto) Sodium Potassium Chloride Carbon Dioxide Anion Gap BUN Creatinine Estim Creat Clear Calc Estimated GFR POC Glucose 230 H 178 H 142 H Fasting Glucose Calcium Microbiology Microbiology Results: Microbiology 02/03/21 22:49 Blood - Venous Blood Culture - Preliminary No growth after 48 hours. 02/03/21 22:31 Blood - Venous Blood Culture - Preliminary No growth after 48 hours. Procedures Date of Service Date of Service: 02/07/21 Assessment & Plan Assessment and plan (1) Pneumonia: Status: Acute (2) S/P CABG x 2: Status: Acute (3) Ischemic cardiomyopathy: Status: Acute Assessment and Plan: 1. Non-Oliguric MAURI: ( Scr 1.7 last month at time of d/c form [facility]) wide DDx and sero and urine studies ordered DDx pre renal r/o as SCr incr depsite IVF past 24 hrs AGN or AIN related to infection vs non-infectious related...low C4 suggest GN ( SLE or non SLE realted such as infectious assoc with te latter tyoically assoc with low C3); polyclonal incr IgM ? signif Acute Obs: doubtful given neg CT for hydr Multifact ATN Still need UA ( I will reorder) 2. Recurrent Pneumonia: ? coulfd this be unusal pulm vasculitis presentation 3. H/O CHF: appears euvolemic vs hypovolemic on exam now 4. CKD 3: bsl Scr 1.7 5. Anemia: multifact; r/o Fe def; may be candidate for procrit REC: d./c IVF, again reordered UA; sero as noted; possible kidney Bx next wee k--would need to be off anti-plt meds whcich I d/c'd yesterday; mary and cryoglobulin titer oredered ordered Card ok with holding asp and plavix in proep of possible Bx next week Time Spent With Patient Time: Total time spent is greater than 50% in coordination of care (as documented) at patient's floor/unit and/or counseling patient: Progress Note: Quality Stroke Does the patient have a stroke diagnosis?: No
[2021-02-07 20:08] LABS: Glucose, Whole Blood 228 mg/dL (60-115)
[2021-02-07] MEDS: Insulin Glargine,Hum.rec.anlog 100 UNIT/ML 10 ML VIAL 40 UNIT SUBCUT (20:18)
[2021-02-07] MEDS: Gabapentin 100 MG CAPSULE 200 MG PO (20:19)
[2021-02-07] MEDS: Atorvastatin Calcium 80 MG TABLET PO (20:20)
[2021-02-07] MEDS: Amitriptyline HCl 25 MG TABLET PO (20:20)
[2021-02-07] MEDS: Albuterol/Iprat 2.5/0.5MG 3 ML AMPUL.NEB INHALE (20:53)
[2021-02-07] MEDS: HYDROmorphone HCl 0.5 MG/0.5 ML SYRINGE IVPUSH (23:37)
[2021-02-08] VITALS (14 sets, daily range): BP systolic 115–158; BP diastolic 55–83; PULSE 52–101; RESP 17–20; TEMP 36.3–37; O2SAT 90–99
[2021-02-08] MEDS: Heparin Sodium,Porcine 5,000 UNIT/ML VIAL 5000 UNIT SUBCUT (04:24)
[2021-02-08] MEDS: HYDROmorphone HCl 1 MG/ML SYRINGE 0.25 MG IVPUSH ×4 (04:24→22:08)
[2021-02-08 06:13] LABS: Mean Corpuscular Hemoglobin 27.9 pg (27.0-33.0); Mean Corpuscular Volume 82.1 fL (80-98); Mean Platelet Volume 11.2 fL (9.4-12.4); Platelet Count 209 X10*3/uL (160-400); Red Blood Count 2.51 X10*6/uL (4.60-5.80); White Blood Count 12.4 X10*3/uL (4.8-10.8)
[2021-02-08 06:56] LABS: Hematocrit 20.6 % (42-52)
[2021-02-08 07:27] LABS: Anion Gap 19 (12-20); Blood Urea Nitrogen 67 mg/dL (9-16); Calcium 8.3 mg/dL (8.4-10.2); Carbon Dioxide 21 mmol/L (22-29); Chloride 99 mmol/L (96-108); Creatinine Clr Calc Pharmacy 19.5; Estimated Glomerular Filt Rate 13; Glucose Fasting 262 mg/dL (60-99); Sodium 135 mmol/L (135-145)
[2021-02-08 07:27] LABS: Glucose, Whole Blood 264 mg/dL (60-115)
[2021-02-08] MEDS: Piperacillin Sodium/Tazobactam 3.375 GM in 0.9 % Sodium Chloride 50 ML IV ×3 (07:38→22:14)
[2021-02-08] MEDS: Insulin Lispro 100 UNIT/ML 3 ML VIAL SUBCUT ×8 (07:38→22:13)
[2021-02-08] MEDS: carvediloL 12.5 MG TABLET PO ×2 (07:39→22:07)
[2021-02-08] MEDS: Fenofibrate 160 MG TABLET PO (07:39)
[2021-02-08] MEDS: Docusate Sodium 100 MG CAPSULE PO ×2 (07:39→22:07)
[2021-02-08] MEDS: Omeprazole 20 MG CAPSULE.DR PO (07:39)
[2021-02-08] MEDS: Gabapentin 300 MG CAPSULE PO (07:39)
[2021-02-08] MEDS: Sertraline HCL 50 MG TABLET 100 MG PO (07:39)
[2021-02-08] MEDS: Isosorbide Mononitrate 30 MG TAB.ER.24H PO (07:40)
[2021-02-08] MEDS: 0.9 % Sodium Chloride Flush 3 ML SYRINGE IVFLUSH ×3 (07:40→22:16)
[2021-02-08] MEDS: Fluticasone/Vilanterol 100/25 BLST.W.DEV 1 PUFF INHALE (08:15)
[2021-02-08] MEDS: Furosemide 100 MG/10 ML VIAL 80 MG IVPUSH (09:24)
--- NOTE | 2021-02-08 10:53 | HO.PM.IMPN ---
Subjective Subjective Date of Service: 02/08/21 Interval History: nausea, feels unwell Eyes Eyes: Reports no additional eye complaints ENT Ears, Nose, Mouth, and Throat: Reports system reviewed and no additional complaints, except as documented Physical Exam Vital Signs: Vital Signs: Last Vital Signs Temp 98.2 F 02/08/21 08:00 Pulse 100 02/08/21 08:18 Resp 18 02/08/21 08:00 BP 150/73 H 02/08/21 08:00 Pulse Ox 91 L 02/08/21 08:00 Body Mass Index 30.4 General: lethargic ill appearing, resp:? Crackles CVS: S1,S2,RRR GI: soft, non tender, non distended Neuro:? motor grossly intact Psych: appropriate affect Objective Data Current Medications Generic Name Dose Route Start Last Admin Trade Name Freq PRN Reason Stop Dose Admin Acetaminophen 650 mg 02/04/21 02:34 02/07/21 22:26 Acetaminophen 325 Mg Tablet PO 650 mg Q6H PRN Administration Pain, Mild (Pain Scale 1-3) Albuterol/Ipratropium 3 ml 02/04/21 22:08 02/07/21 20:53 Albuterol/Iprat 2.5/0.5mg 3 Ml Ampul.Neb INHALE 3 ml RQ4H PRN Administration Shortness of Breath/Wheezing Amitriptyline HCl 25 mg 02/04/21 21:00 02/07/21 20:20 Amitriptyline Hcl 25 Mg Tablet PO 25 mg BEDTIME MAGUI Administration Atorvastatin Calcium 80 mg 02/04/21 21:00 02/07/21 20:20 Atorvastatin Calcium 80 Mg Tablet PO 80 mg BEDTIME MAGUI Administration Azelastine HCl 2 spray 02/04/21 09:00 02/08/21 07:51 Azelastine Hcl Nasal 137 Mcg/[place] 30 Ml NOSTRIL-B Not Given BID MAGUI Carvedilol 12.5 mg 02/04/21 09:00 02/08/21 07:39 Carvedilol 12.5 Mg Tablet PO 12.5 mg BID MAGUI Administration Protocol Dextrose 25 gm 02/04/21 02:40 Dextrose 50 % 25 Gm/50 Ml Vial IVPUSH Q15M PRN per Hypoglycemia Standing Ord. Protocol Docusate Sodium 100 mg 02/04/21 09:00 02/08/21 07:39 Docusate Sodium 100 Mg Capsule PO 100 mg BID MAGUI Administration Fenofibrate 160 mg 02/04/21 09:00 02/08/21 07:39 Fenofibrate 160 Mg Tablet PO 160 mg DAILY MAGUI Administration Fluticasone/Vilanterol 1 puff 02/04/21 09:00 02/08/21 08:15 Fluticasone/Vilanterol 100/25 Blst.W.Dev INHALE 1 puff DAILY MAGUI Administration Furosemide 40 mg 02/08/21 08:44 Furosemide 40 Mg/4 Ml Vial IVPUSH ONCE PRN post transfusion Protocol Gabapentin 300 mg 02/04/21 09:00 02/08/21 07:39 Gabapentin 300 Mg Capsule PO 300 mg DAILY MAGUI Administration Gabapentin 200 mg 02/07/21 21:00 02/07/21 20:19 Gabapentin 100 Mg Capsule PO 200 mg BEDTIME MAGUI Administration Glucose 15 gm 02/04/21 02:40 Glucose Gel 15 Gm Gel..Gram. PO Q15M PRN per Hypoglycemia Standing Ord. Protocol Hydromorphone HCl 0.25 mg 02/07/21 15:57 02/08/21 09:24 Hydromorphone Hcl 1 Mg/Ml Syringe IVPUSH 0.25 mg Q4H PRN Administration Pain, Severe (Pain Scale 7-10) Piperacillin Sod/Tazobactam 50 mls @ 100 mls/hr 02/04/21 07:00 02/08/21 08:22 Sod 3.375 gm/ Sodium Chloride IV Infused Q8H MAGUI Infusion Insulin Glargine 40 unit 02/05/21 21:00 02/07/21 20:18 Insulin Glargine,Hum.Rec.Anlog 100 Unit/Ml 10 Ml Vial SUBCUT 40 unit BEDTIME MAGUI Administration Insulin Human Lispro 0 - 10 unit 02/04/21 07:30 02/08/21 07:38 Insulin Lispro 100 Unit/Ml 3 Ml Vial SUBCUT 6 unit QIDACHS [facility] Administration Protocol Insulin Human Lispro 5 unit 02/05/21 11:30 02/08/21 07:39 Insulin Lispro 100 Unit/Ml 3 Ml Vial SUBCUT 5 unit QIDACHS MAGUI Administration Isosorbide Mononitrate 30 mg 02/08/21 09:00 02/08/21 07:40 Isosorbide Mononitrate 30 Mg Tab.Er.24h PO 30 mg DAILY MAGUI Administration Protocol Melatonin 6 mg 02/04/21 02:34 02/06/21 21:18 Melatonin 3 Mg Tablet PO 6 mg BEDTIME PRN Administration Insomnia Omeprazole 20 mg 02/04/21 09:00 02/08/21 07:39 Omeprazole 20 Mg Capsule.Dr PO 20 mg DAILY MAGUI Administration Ondansetron HCl 4 mg 02/04/21 03:24 02/08/21 05:50 Ondansetron Hcl 4 Mg/2 Ml Vial IVPUSH 4 mg Q8H PRN Administration Nausea and Vomiting Pharmacy Consult 1 each 02/04/21 02:34 Consult Rx Vancomycin Dosing MISCELLANE DAILY PRN Consult order Sertraline HCl 100 mg 02/04/21 09:00 02/08/21 07:39 Sertraline Hcl 50 Mg Tablet PO 100 mg DAILY MAGUI Administration Sodium Chloride 3 ml 02/04/21 08:00 02/08/21 07:40 0.9 % Sodium Chloride Flush 3 Ml Syringe IVFLUSH 3 ml QSHIFT MAGUI Administration Tizanidine HCl 4 mg 02/04/21 02:41 Tizanidine Hcl 4 Mg Tablet PO BEDTIME PRN muscle spasm Labs CBC & Chem 7: 02/08/21 05:33 02/08/21 05:33 Labs: Laboratory Results - last 24 hr 02/07/21 02/07/21 02/07/21 11:01 15:51 19:58 MCV MCH MCHC RDW Plt Count MPV Absolute Nucleated RBC Nucleated RBC % (auto) Anion Gap Estim Creat Clear Calc Estimated GFR POC Glucose 178 H 142 H 228 H Fasting Glucose Calcium Blood Type Antibody Screen Crossmatch 02/08/21 02/08/21 02/08/21 05:33 05:33 07:16 MCV 82.1 MCH 27.9 MCHC 34.0 RDW 15.0 Plt Count 209 D MPV 11.2 Absolute Nucleated RBC 0.000 Nucleated RBC % (auto) 0.0 Anion Gap 19 Estim Creat Clear Calc 19.5 Estimated GFR 13 POC Glucose 264 H Fasting Glucose 262 H Calcium 8.3 L Blood Type Antibody Screen Crossmatch 02/08/21 09:24 MCV MCH MCHC RDW Plt Count MPV Absolute Nucleated RBC Nucleated RBC % (auto) Anion Gap Estim Creat Clear Calc Estimated GFR POC Glucose Fasting Glucose Calcium Blood Type O Positive Antibody Screen NEGATIVE Crossmatch See Detail Assessment and Plan (1) Pneumonia: Status: Acute Assessment and Plan: 45M presented with fever and chills severe sepsis present on admission due to pneumonia with risk factors for MDR organisms continue zosyn day 5 cultures negative sepsis resolved MAURI on CKD III nephro following, follow up work up, low c4, renal function worsening, plan for kidney biopsy acute hypoxic respiratory failure due to acute on chornic systolic chf, ischemic DAPL on hold for biopsy continue statin IV lasix anemia of inflammation/ckd transfuse 1 unit prbc, monitor DM with hyperglycemia basal bolus insulin vte prophylaxis - mechanical while awaiting biopsy Quality Stroke Does the patient have a stroke diagnosis?: No VTE Prior VTE?: No VTE Risk Level:: Medical - moderate - high VTE Device Contraindication: N/A - Device Ordered VTE Drug Contraindication: Treatment Not Indicated
[2021-02-08 11:42] LABS: Glucose, Whole Blood 210 mg/dL (60-115)
[2021-02-08] MEDS: HYDROmorphone HCl 0.5 MG/0.5 ML SYRINGE 0.25 MG IVPUSH (11:50)
--- NOTE | 2021-02-08 14:20 | P.PNCA_ITS ---
Subjective Subjective Date of Service: 02/08/21 Principal diagnosis: CAD, CABG, Ischemic CMP, PNA, ARF Interval history: back pain. creatinine worsening. Volume overloaded. Physical Exam Vital Signs: Last Vital Signs Temp 97.6 F 02/08/21 11:01 Pulse 52 02/08/21 11:01 Resp 20 02/08/21 11:01 BP 115/59 L 02/08/21 11:01 Pulse Ox 99 02/08/21 11:01 Body Mass Index 30.4 GENERAL APPEARANCE:? Distress due to back pain. NECK: no carotid bruit, + jugular venous distention. SKIN: no suspicious lesions, warm and dry. HEART: no murmurs, regular rate and rhythm. LUNGS: clear to auscultation bilaterally. ABDOMEN: soft, nontender. EXTREMITIES: no edema. PERIPHERAL PULSES: equal. NEUROLOGIC: No gross deficits, AAO X 3. Results Labs and Meds Result diagrams: 02/08/21 05:33 02/08/21 05:33 Lab results: Laboratory Results - last 24 hr 02/07/21 02/07/21 02/08/21 15:51 19:58 05:33 WBC 12.4 H RBC 2.51 L Hgb 7.0 L* Hct 20.6 L* MCV 82.1 MCH 27.9 MCHC 34.0 RDW 15.0 Plt Count 209 D MPV 11.2 Absolute Nucleated RBC 0.000 Nucleated RBC % (auto) 0.0 Sodium Potassium Chloride Carbon Dioxide Anion Gap BUN Creatinine Estim Creat Clear Calc Estimated GFR POC Glucose 142 H 228 H Fasting Glucose Calcium Blood Type Antibody Screen Crossmatch 02/08/21 02/08/21 02/08/21 05:33 07:16 09:24 WBC RBC Hgb Hct MCV MCH MCHC RDW Plt Count MPV Absolute Nucleated RBC Nucleated RBC % (auto) Sodium 135 Potassium 4.0 Chloride 99 Carbon Dioxide 21 L Anion Gap 19 BUN 67 H Creatinine 4.99 H* Estim Creat Clear Calc 19.5 Estimated GFR 13 POC Glucose 264 H Fasting Glucose 262 H Calcium 8.3 L Blood Type O Positive Antibody Screen NEGATIVE Crossmatch See Detail 02/08/21 11:35 WBC RBC Hgb Hct MCV MCH MCHC RDW Plt Count MPV Absolute Nucleated RBC Nucleated RBC % (auto) Sodium Potassium Chloride Carbon Dioxide Anion Gap BUN Creatinine Estim Creat Clear Calc Estimated GFR POC Glucose 210 H Fasting Glucose Calcium Blood Type Antibody Screen Crossmatch Progress Note: A&P Assessment and plan (1) Pneumonia: Status: Acute (2) Renal failure (ARF), acute on chronic: Status: Acute (3) Acute on chronic congestive heart failure: Status: Acute Assessment and Plan: 45 year gentleman with background history of coronary artery disease with bypass surgery who recently had pneumonia while he was admitted at [facility] he is and presented to us with shortness of breath. He was treated as pneumonia but he has significantly worsening renal functions. Clin ically she was not volume overloaded and received IV fluids to see if his kidney function improved. Creatinine has worsened further despite IV fluid resuscitation. he is currently quite overloaded. Give him 80 mg IV Lasix. This does not work then I think we give him some metolazone and try lasix gtt. He is currently off the dual antiplatelet therapy because he will need a renal biopsy. Thank you for allowing me to participate in the care of your patient. Please feel free to contact me if you have any questions. Fall Risk Details Current Medications: Current Medications Generic Name Dose Route Start Last Admin Trade Name Freq PRN Reason Stop Dose Admin Acetaminophen 650 mg 02/04/21 02:34 02/07/21 22:26 Acetaminophen 325 Mg Tablet PO 650 mg Q6H PRN Administration Pain, Mild (Pain Scale 1-3) Albuterol/Ipratropium 3 ml 02/04/21 22:08 02/07/21 20:53 Albuterol/Iprat 2.5/0.5mg 3 Ml Ampul.Neb INHALE 3 ml RQ4H PRN Administration Shortness of Breath/Wheezing Amitriptyline HCl 25 mg 02/04/21 21:00 02/07/21 20:20 Amitriptyline Hcl 25 Mg Tablet PO 25 mg BEDTIME MAGUI Administration Atorvastatin Calcium 80 mg 02/04/21 21:00 02/07/21 20:20 Atorvastatin Calcium 80 Mg Tablet PO 80 mg BEDTIME MAGUI Administration Azelastine HCl 2 spray 02/04/21 09:00 02/08/21 07:51 Azelastine Hcl Nasal 137 Mcg/[place] 30 Ml NOSTRIL-B Not Given BID MAGUI Carvedilol 12.5 mg 02/04/21 09:00 02/08/21 07:39 Carvedilol 12.5 Mg Tablet PO 12.5 mg BID MAGUI Administration Protocol Dextrose 25 gm 02/04/21 02:40 Dextrose 50 % 25 Gm/50 Ml Vial IVPUSH Q15M PRN per Hypoglycemia Standing Ord. Protocol Docusate Sodium 100 mg 02/04/21 09:00 02/08/21 07:39 Docusate Sodium 100 Mg Capsule PO 100 mg BID MAGUI Administration Fenofibrate 160 mg 02/04/21 09:00 02/08/21 07:39 Fenofibrate 160 Mg Tablet PO 160 mg DAILY MAGUI Administration Fluticasone/Vilanterol 1 puff 02/04/21 09:00 02/08/21 08:15 Fluticasone/Vilanterol 100/25 Blst.W.Dev INHALE 1 puff DAILY MAGUI Administration Furosemide 40 mg 02/08/21 08:44 Furosemide 40 Mg/4 Ml Vial IVPUSH ONCE PRN post transfusion Protocol Gabapentin 300 mg 02/04/21 09:00 02/08/21 07:39 Gabapentin 300 Mg Capsule PO 300 mg DAILY MAGUI Administration Gabapentin 200 mg 02/07/21 21:00 02/07/21 20:19 Gabapentin 100 Mg Capsule PO 200 mg BEDTIME MAGUI Administration Glucose 15 gm 02/04/21 02:40 Glucose Gel 15 Gm Gel..Gram. PO Q15M PRN per Hypoglycemia Standing Ord. Protocol Hydromorphone HCl 0.25 mg 02/07/21 15:57 02/08/21 09:24 Hydromorphone Hcl 1 Mg/Ml Syringe IVPUSH 0.25 mg Q4H PRN Administration Pain, Severe (Pain Scale 7-10) Piperacillin Sod/Tazobactam 50 mls @ 100 mls/hr 02/04/21 07:00 02/08/21 08:22 Sod 3.375 gm/ Sodium Chloride IV Infused Q8H MAGUI Infusion Insulin Glargine 40 unit 02/05/21 21:00 02/07/21 20:18 Insulin Glargine,Hum.Rec.Anlog 100 Unit/Ml 10 Ml Vial SUBCUT 40 unit BEDTIME MAGUI Administration Insulin Human Lispro 0 - 10 unit 02/04/21 07:30 02/08/21 11:51 Insulin Lispro 100 Unit/Ml 3 Ml Vial SUBCUT 4 unit QIDACHS MAGUI Administration Protocol Insulin Human Lispro 5 unit 02/05/21 11:30 02/08/21 11:51 Insulin Lispro 100 Unit/Ml 3 Ml Vial SUBCUT 5 unit QIDACHS MAGUI Administration Isosorbide Mononitrate 30 mg 02/08/21 09:00 02/08/21 07:40 Isosorbide Mononitrate 30 Mg Tab.Er.24h PO 30 mg DAILY MAGUI Administration Protocol Melatonin 6 mg 02/04/21 02:34 02/06/21 21:18 Melatonin 3 Mg Tablet PO 6 mg BEDTIME PRN Administration Insomnia Omeprazole 20 mg 02/04/21 09:00 02/08/21 07:39 Omeprazole 20 Mg Capsule.Dr PO 20 mg DAILY MAGUI Administration Ondansetron HCl 4 mg 02/04/21 03:24 02/08/21 05:50 Ondansetron Hcl 4 Mg/2 Ml Vial IVPUSH 4 mg Q8H PRN Administration Nausea and Vomiting Pharmacy Consult 1 each 02/04/21 02:34 Consult Rx Vancomycin Dosing MISCELLANE DAILY PRN Consult order Sertraline HCl 100 mg 02/04/21 09:00 02/08/21 07:39 Sertraline Hcl 50 Mg Tablet PO 100 mg DAILY MAGUI Administration Sodium Chloride 3 ml 02/04/21 08:00 02/08/21 07:40 0.9 % Sodium Chloride Flush 3 Ml Syringe IVFLUSH 3 ml QSHIFT MAGUI Administration Tizanidine HCl 4 mg 02/04/21 02:41 Tizanidine Hcl 4 Mg Tablet PO BEDTIME PRN muscle spasm Time Spent With Patient Time: Total time spent is greater than 50% in coordination of care (as documented) at patient's floor/unit and/or counseling patient: Time with patient: 25 - 35 minutes Progress Note: Quality Stroke Does the patient have a stroke diagnosis?: No Procedures Date of Service Date of Service: 02/08/21
[2021-02-08] MEDS: Nystatin Oral Susp 500,000 UNIT/5 ML ORAL.SUSP 400000 UNIT PO ×2 (15:47→22:09)
[2021-02-08 16:06] LABS: Glucose, Whole Blood 250 mg/dL (60-115)
--- NOTE | 2021-02-08 19:35 | PM.PNNEP ---
Subjective Subjective Date of Service: 02/08/21 Principal diagnosis: CAD, CABG, Ischemic CMP, PNA, ARF Interval history: Seen and examined, events noted IVF stopped yesterday SOB and feels gen unwell today Lasix started Physical Exam Vital Signs: Vital Signs: Last Vital Signs Temp 97.6 F 02/08/21 19:07 Pulse 88 02/08/21 19:07 Resp 20 02/08/21 19:07 BP 141/81 H 02/08/21 19:07 Pulse Ox 96 02/08/21 19:07 Body Mass Index 30.4 Chest: Chest palpation & inspection: normal inspection of the chest Resp: Auscultation: rhonchi and diminished lung sounds Cardio: Jugular venous distension: no JVD Objective Data Labs CBC & Chem 7: 02/08/21 05:33 02/08/21 05:33 Labs: Laboratory Results - last 24 hr 02/07/21 02/08/21 02/08/21 19:58 05:33 05:33 WBC 12.4 H RBC 2.51 L Hgb 7.0 L* Hct 20.6 L* MCV 82.1 MCH 27.9 MCHC 34.0 RDW 15.0 Plt Count 209 D MPV 11.2 Absolute Nucleated RBC 0.000 Nucleated RBC % (auto) 0.0 Sodium 135 Potassium 4.0 Chloride 99 Carbon Dioxide 21 L Anion Gap 19 BUN 67 H Creatinine 4.99 H* Estim Creat Clear Calc 19.5 Estimated GFR 13 POC Glucose 228 H Fasting Glucose 262 H Calcium 8.3 L Blood Type Antibody Screen Crossmatch 02/08/21 02/08/21 02/08/21 07:16 09:24 11:35 WBC RBC Hgb Hct MCV MCH MCHC RDW Plt Count MPV Absolute Nucleated RBC Nucleated RBC % (auto) Sodium Potassium Chloride Carbon Dioxide Anion Gap BUN Creatinine Estim Creat Clear Calc Estimated GFR POC Glucose 264 H 210 H Fasting Glucose Calcium Blood Type O Positive Antibody Screen NEGATIVE Crossmatch See Detail 02/08/21 16:03 WBC RBC Hgb Hct MCV MCH MCHC RDW Plt Count MPV Absolute Nucleated RBC Nucleated RBC % (auto) Sodium Potassium Chloride Carbon Dioxide Anion Gap BUN Creatinine Estim Creat Clear Calc Estimated GFR POC Glucose 250 H Fasting Glucose Calcium Blood Type Antibody Screen Crossmatch Microbiology Microbiology Results: Microbiology 02/03/21 22:49 Blood - Venous Blood Culture - Preliminary No growth after 48 hours. 02/03/21 22:31 Blood - Venous Blood Culture - Preliminary No growth after 48 hours. Procedures Date of Service Date of Service: 02/08/21 Assessment & Plan Assessment and plan (1) Pneumonia: Status: Acute (2) S/P CABG x 2: Status: Acute (3) Ischemic cardiomyopathy: Status: Acute Assessment and Plan: 1. Non-Oliguric MAURI: ( Scr 1.7 last [place] [facility] [place]x and sero and urine studies ordered DDx pre renal r/o as SCr incr depsite IVF past 24 hrs AGN or AIN related to infection vs non-infectious related...low C4 suggest GN ( SLE or non SLE realted such as infectious assoc with te latter tyoically assoc with low C3); polyclonal incr IgM ? signif Acute Obs: doubtful given neg CT for hydr Multifact ATN Still need UA ( I will reorder)--no sure why we cant get a UA as I have reoreder it several times 2. Recurrent Pneumonia: ? coulfd this be unusal pulm vasculitis presentation 3. H/O CHF: appears euvolemic vs hypovolemic on exam now 4. CKD 3: bsl Scr 1.7 5. Anemia: multifact; r/o Fe def; may be candidate for procrit REC: IV lasix 80 this a,m and if UOP not signif then incr 120 Iv; bladder scan to r/o Ur rtention; again reordered UA; sero as noted; possible kidney Bx next week--would need to be off anti-plt meds whcich I d/c'd yesterday; mary and cryoglobulin titer oredered ordered Card ok with holding asp and plavix in proep of possible Bx next week Time Spent With Patient Time: Total time spent is greater than 50% in coordination of care (as documented) at patient's floor/unit and/or counseling patient: Progress Note: Quality Stroke Does the patient have a stroke diagnosis?: No
[2021-02-08 20:04] LABS: Glucose, Whole Blood 260 mg/dL (60-115)
[2021-02-08] MEDS: Amitriptyline HCl 25 MG TABLET PO (22:06)
[2021-02-08] MEDS: Gabapentin 100 MG CAPSULE 200 MG PO (22:07)
[2021-02-08] MEDS: Atorvastatin Calcium 80 MG TABLET PO (22:07)
[2021-02-08] MEDS: Insulin Glargine,Hum.rec.anlog 100 UNIT/ML 10 ML VIAL 40 UNIT SUBCUT (22:10)
[2021-02-08] MEDS: Azelastine HCl Nasal 137 MCG/Spray 30 ML 2 SPRAY NOSTRIL-B (22:15)
[2021-02-09] VITALS (9 sets, daily range): BP systolic 120–157; BP diastolic 70–90; PULSE 82–96; RESP 15–24; TEMP 36.4–36.9; O2SAT 91–98
[2021-02-09] MEDS: Piperacillin Sodium/Tazobactam 3.375 GM in 0.9 % Sodium Chloride 50 ML IV ×3 (05:46→23:24)
[2021-02-09 05:56] LABS: Hematocrit 22.6 % (42-52); Hemoglobin 7.7 g/dl (14.0-18.0); Mean Corpuscular HGB Conc 34.1 g/dl (31.0-36.0); Mean Corpuscular Hemoglobin 27.6 pg (27.0-33.0); Mean Platelet Volume 10.5 fL (9.4-12.4); NRBC Pct Auto 0.2 /100WBC (0.0-0.2); Platelet Count 272 X10*3/uL (160-400); Red Blood Count 2.79 X10*6/uL (4.60-5.80); White Blood Count 12.8 X10*3/uL (4.8-10.8)
[2021-02-09 06:04] LABS: Glucose, Whole Blood 140 mg/dL (60-115)
[2021-02-09 06:22] LABS: Anion Gap 19 (12-20); Blood Urea Nitrogen 62 mg/dL (9-16); Calcium 8.5 mg/dL (8.4-10.2); Carbon Dioxide 23 mmol/L (22-29); Chloride 101 mmol/L (96-108); Creatinine Clr Calc Pharmacy 25.1; Estimated Glomerular Filt Rate 17; Glucose Fasting 145 mg/dL (60-99); Potassium 3.6 mmol/L (3.3-5.1); Sodium 139 mmol/L (135-145)
[2021-02-09 07:23] LABS: Glucose, Whole Blood 139 mg/dL (60-115)
--- NOTE | 2021-02-09 08:00 | P.PNNP_ITS ---
Subjective Subjective Date of Service: 02/09/21 Principal diagnosis: CAD, CABG, Ischemic CMP, PNA, ARF Interval history: Seen and examined, events noted IVF stopped yesterday SOB and feels gen unwell today Lasix started Physical Exam Vital Signs: Vital Signs: Last Vital Signs Temp 98.5 F 02/09/21 07:37 Pulse 92 02/09/21 07:37 Resp 24 H 02/09/21 07:37 BP 152/75 H 02/09/21 07:37 Pulse Ox 91 L 02/09/21 07:37 Body Mass Index 30.4 Const: General: cooperative, no acute distress, alert and awake Orientation/consciousness: patient oriented x3 Neck: Neck: Yes normal visual inspection, Yes JVD (prominent) and Yes no JVD Chest: Chest palpation & inspection: normal inspection of the chest Resp: Effort & Inspection: normal respiratory effort, able to speak in complet e sentences and not labored Auscultation: clear to auscultation bilaterally, no rales, rhonchi, wheezes (Scattered expiratory. Lungs diminished.) and diminished lung sounds Cardio: Jugular venous distension: no JVD Palpation: normal PMI Rate: regular rate Rhythm: regular rhythm Heart sounds: S1 normal heart sound present and S2 normal heart sound present Peripheral pulses: Peripheral pulses 2+ throughout GI: Inspection: Yes normal to inspection Neuro: General: patient oriented x3 Extrem: General: Yes normal to inspection and No edema Objective Data Labs CBC & Chem 7: 02/09/21 05:23 02/09/21 05:23 Labs: Laboratory Results - last 24 hr 02/08/21 02/08/21 02/08/21 09:24 11:35 16:03 WBC RBC Hgb Hct MCV MCH MCHC RDW Plt Count MPV Absolute Nucleated RBC Nucleated RBC % (auto) Sodium Potassium Chloride Carbon Dioxide Anion Gap BUN Creatinine Estim Creat Clear Calc Estimated GFR POC Glucose 210 H 250 H Fasting Glucose Calcium Blood Type O Positive Antibody Screen NEGATIVE Crossmatch See Detail 02/08/21 02/09/21 02/09/21 19:56 05:23 05:23 WBC 12.8 H RBC 2.79 L Hgb 7.7 L Hct 22.6 L MCV 81.0 MCH 27.6 MCHC 34.1 RDW 15.0 Plt Count 272 D MPV 10.5 Absolute Nucleated RBC 0.020 H Nucleated RBC % (auto) 0.2 Sodium 139 Potassium 3.6 Chloride 101 Carbon Dioxide 23 Anion Gap 19 BUN 62 H Creatinine 3.89 H Estim Creat Clear Calc 25.1 Estimated GFR 17 POC Glucose 260 H Fasting Glucose 145 H D Calcium 8.5 Blood Type Antibody Screen Crossmatch 02/09/21 02/09/21 05:59 07:11 WBC RBC Hgb Hct MCV MCH MCHC RDW Plt Count MPV Absolute Nucleated RBC Nucleated RBC % (auto) Sodium Potassium Chloride Carbon Dioxide Anion Gap BUN Creatinine Estim Creat Clear Calc Estimated GFR POC Glucose 140 H 139 H Fasting Glucose Calcium Blood Type Antibody Screen Crossmatch Microbiology Microbiology Results: Microbiology 02/03/21 22:49 Blood - Venous Blood Culture - Final No growth after 5 days. 02/03/21 22:31 Blood - Venous Blood Culture - Final No growth after 5 days. Procedures Date of Service Date of Service: 02/09/21 Assessment & Plan Assessment and plan (1) Pneumonia: Status: Acute (2) S/P CABG x 2: Status: Acute (3) Ischemic cardiomyopathy: Status: Acute Assessment and Plan: 1. Non-Oliguric MAURI: ( Scr 1.7 last month at [place] [facility] [place] DDx and sero and urine studies ordered DDx pre renal r/o as SCr incr depsite IVF past 24 hrs AGN or AIN related to infection vs non-infectious related...low C4 suggest GN ( SLE or non SLE related such as infectious assoc with the latter typically assoc with low C3); polyclonal incr IgM ? signif Acute Obs: doubtful given neg CT for hydr Multifact ATN Still need UA ( I will reorder)--no sure why we cant get a UA as I have reorder it several times 2. Recurrent Pneumonia: ? could this be unusual pulm vasculitis presentation 3. H/O CHF: appears euvolemic vs hypovolemic on exam now 4. CKD 3: bsl Scr 1.7 5. Anemia: multifact; r/o Fe def; may be candidate for procrit REC: IV lasix 80 this a,m and if UOP not signif then incr 120 Iv; bladder scan to r/o Urinary retention; again reordered UA; sero as noted; possible kidney Bx next week--would need to be off anti-plt meds which I d/c'd yesterday; mary and cryoglobulin titer ordered ordered Card ok with holding asp and plavix in preop of possible Bx next week 02-09-21 new serologies pending also ordered UA and urine protein his creat is improving so will hold renal bx injectafer ordered for low iron then procrit Progress Note: Quality Stroke Does the patient have a stroke diagnosis?: No
[2021-02-09] MEDS: Nystatin Oral Susp 500,000 UNIT/5 ML ORAL.SUSP 400000 UNIT PO ×4 (09:09→20:53)
[2021-02-09] MEDS: 0.9 % Sodium Chloride Flush 3 ML SYRINGE IVFLUSH ×2 (09:09→15:29)
[2021-02-09] MEDS: Gabapentin 300 MG CAPSULE PO (09:10)
[2021-02-09] MEDS: Sertraline HCL 50 MG TABLET 100 MG PO (09:10)
[2021-02-09] MEDS: Omeprazole 20 MG CAPSULE.DR PO (09:10)
[2021-02-09] MEDS: Fenofibrate 160 MG TABLET PO (09:10)
[2021-02-09] MEDS: Docusate Sodium 100 MG CAPSULE PO (09:11)
[2021-02-09] MEDS: carvediloL 12.5 MG TABLET PO ×2 (09:11→20:49)
[2021-02-09] MEDS: Isosorbide Mononitrate 30 MG TAB.ER.24H PO (09:11)
[2021-02-09] MEDS: HYDROmorphone HCl 1 MG/ML SYRINGE 0.25 MG IVPUSH ×3 (09:16→18:30)
[2021-02-09] MEDS: Ferric Carboxymaltose 750 MG in 0.9 % Sodium Chloride 250 ML 1060 MG IV (09:23)
[2021-02-09] MEDS: Azelastine HCl Nasal 137 MCG/Spray 30 ML 2 SPRAY NOSTRIL-B (09:25)
[2021-02-09] MEDS: Fluticasone/Vilanterol 100/25 BLST.W.DEV 1 PUFF INHALE (09:27)
[2021-02-09 09:57] LABS: Myeloperoxidase Antibody <1.0 AI; Proteinase 3 PR3 Antibodies <1.0 AI
[2021-02-09] MEDS: Furosemide 100 MG/10 ML VIAL 80 MG IVPUSH ×2 (10:13→18:24)
[2021-02-09] MEDS: hydrALAZINE HCl 25 MG TABLET PO ×2 (10:14→20:49)
--- NOTE | 2021-02-09 10:38 | PM.PNCARD ---
Subjective Subjective Date of Service: 02/09/21 <PHUC Hammer - Last Filed: 02/09/21 11:28> 02/09/21 <Rodo Hernandez MD - Last Filed: 02/09/21 13:32> Principal diagnosis: CAD, CABG, Ischemic CMP, PNA, ARF <PHUC Hammer - Last Filed: 02/09/21 11:28> Interval history: Cardiology follow up for Ischemic CMP, CHF. Seen at 0830. Today he reports his breathing is unlabored. Wearing O2 with nasal cannula. Intermittent cough present. Denies CP at rest, still has some discomfort with deep inspiration. Abdomen nontender or distended. No peripheral swelling. Slept with HOB partially elevated. <PHUC Hammer - Last Filed: 02/09/21 11:28> Review of Systems Review of Systems as above <PHUC Hammer - Last Filed: 02/09/21 11:28> Yes all other systems are reviewed and are negative <PHUC Hammer - Last Filed: 02/09/21 11:28> Physical Exam Vital Signs: Last Vital Signs Temp 98.5 F 02/09/21 07:37 Pulse 86 02/09/21 10:14 Resp 24 H 02/09/21 07:37 BP 139/84 02/09/21 10:14 Pulse Ox 91 L 02/09/21 07:37 Body Mass Index 30.4 <PHUC Hammer - Last Filed: 02/09/21 11:28> Const General: cooperative, no acute distress, alert and awake <PHUC Hammer - Last Filed: 02/09/21 11:28> Orientation/consciousness: patient oriented x3 <PHUC Hammer - Last Filed: 02/09/21 11:28> Neck Neck: Yes JVD (to just below jaw) <PHUC Hammer - Last Filed: 02/09/21 11:28> Resp Effort & Inspection: normal respiratory effort, able to speak in complete sentences and not labored <PHUC Hammer - Last Filed: 02/09/21 11:28> Auscultation: crackles (coarse left base) and wheezes (scattered expiratory) <RONAN HammerC - Last Filed: 02/09/21 11:28> Cardio Jugular venous distension: JVD <PHUC Hammer - Last Filed: 02/09/21 11:28> Palpation: normal PMI <RONAN HammerC - Last Filed: 02/09/21 11:28> Rate: regular rate <RONAN HammerC - Last Filed: 02/09/21 11:28> Rhythm: regular rhythm <RONAN HammerC - Last Filed: 02/09/21 11:28> Heart sounds: S1 normal heart sound present and S2 normal heart sound present <PHUC Hammer - Last Filed: 02/09/21 11:28> Peripheral pulses: Peripheral pulses 2+ throughout <RONAN HammerC - Last Filed: 02/09/21 11:28> GI Inspection: Yes normal to inspection <RONAN HammerC - Last Filed: 02/09/21 11:28> Neuro General: patient oriented x3 <RONAN HammerC - Last Filed: 02/09/21 11:28> Extrem General: Yes normal to inspection and No edema <RONAN HammerC - Last Filed: 02/09/21 11:28> Results Labs and Meds Result diagrams: : 02/09/21 05:23 02/09/21 05:23 <RONAN HammerC - Last Filed: 02/09/21 11:28> Lab results: Laboratory Results - last 24 hr 02/05/21 02/08/21 02/08/21 07:35 09:24 11:35 WBC RBC Hgb Hct MCV MCH MCHC RDW Plt Count MPV Absolute Nucleated RBC Nucleated RBC % (auto) Sodium Potassium Chloride Carbon Dioxide Anion Gap BUN Creatinine Estim Creat Clear Calc Estimated GFR POC Glucose 210 H Fasting Glucose Calcium Proteinase 3 (PR3) Ab <1.0 Myeloperoxidase Ab <1.0 Blood Type O Positive Antibody Screen NEGATIVE Crossmatch See Detail 02/08/21 02/08/21 02/09/21 16:03 19:56 05:23 WBC 12.8 H RBC 2.79 L Hgb 7.7 L Hct 22.6 L MCV 81.0 MCH 27.6 MCHC 34.1 RDW 15.0 Plt Count 272 D MPV 10.5 Absolute Nucleated RBC 0.020 H Nucleated RBC % (auto) 0.2 Sodium Potassium Chloride Carbon Dioxide Anion Gap BUN Creatinine Estim Creat Clear Calc Estimated GFR POC Glucose 250 H 260 H Fasting Glucose Calcium Proteinase 3 (PR3) Ab Myeloperoxidase Ab Blood Type Antibody Screen Crossmatch 02/09/21 02/09/21 02/09/21 05:23 05:59 07:11 WBC RBC Hgb Hct MCV MCH MCHC RDW Plt Count MPV Absolute Nucleated RBC Nucleated RBC % (auto) Sodium 139 Potassium 3.6 Chloride 101 Carbon Dioxide 23 Anion Gap 19 BUN 62 H Creatinine 3.89 H Estim Creat Clear Calc 25.1 Estimated GFR 17 POC Glucose 140 H 139 H Fasting Glucose 145 H D Calcium 8.5 Proteinase 3 (PR3) Ab Myeloperoxidase Ab Blood Type Antibody Screen Crossmatch <PHUC Hammer - Last Filed: 02/09/21 11:28> Progress Note: A&P Assessment and plan (1) Acute on chronic congestive heart failure: Status: Acute <PHUC Hammer - Last Filed: 02/09/21 11:28> Assessment and Plan: Has known Ischemic CMP with last EF 30-35%. Sub Q ICD in place. He does have acute on chronic renal failure this admit with Cr up to 4.99 yesterday. His home Torsemide 60mg bid - has been held since admit due to kidney funtion. CXR done 02/07 shows early CHF. Fluid balance this admit + 7.2 Liters. He did get Lasix 80mg IV yesterday. Cr this am down to 3.89. On exam today he still has prominent JVD and expiratory wheezes. His O2 requirement remains up, on 4 liters and Sat 91%. He is still being treated for his PNA.?Now with fluid overload, systolic HF. Will start on Lasix 80mg IV BID. BNP this am. Nephrology following as well and they plan to do renal biopsy today. Strict I+O monitoring, close monitoring of electrolyte and kidney function. Electrolyte replacement as warranted. We will follow. ? <PHUC Hammer - Last Filed: 02/09/21 11:28> Has known Ischemic CMP with last EF 30-35%. Sub Q ICD in place. He does have acute on chronic renal failure this admit with Cr up to 4.99 yesterday. His home Torsemide 60mg bid - has been held since admit due to kidney funtion. CXR done 02/07 shows early CHF. Fluid balance this admit + 7.2 Liters. He did get Lasix 80mg IV yesterday. Cr this am down to 3.89. On exam today he still has prominent JVD and expiratory wheezes. His O2 requirement remains up, on 4 liters and Sat 91%. He is still being treated for his PNA.?Now with fluid overload, systolic HF. Will start on Lasix 80mg IV BID. BNP this am. Nephrology following as well and they plan to do renal biopsy today. Strict I+O monitoring, close monitoring of electrolyte and kidney function. Electrolyte replacement as warranted. We will follow. ? Patient seen and examined and case discussed with Amanda Henry. Patient remained short of breath. Very frustrated overall. Has diuresed well. Remains hypoxic. Clinically does not appear to be significantly fluid overloaded. However continue Lasix for 1 more day with 80 mg IV b.i.d.. Strict intake and output chart needs to be pursued. Will follow-up BMP and BNP. Add hydralazine 25 mg b.i.d. as afterload reduction. To be followed by Nephrology for renal biopsy for his acute kidney injury. Continue electrolyte replacement as needed. Continue supportive care for his pneumonia pleural effusion. <Rodo Hernandez MD - Last Filed: 02/09/21 13:32> (2) Renal failure (ARF), acute on chronic: Status: Acute <PHUC Hammer - Last Filed: 02/09/21 11:28> Assessment and Plan: as above <PHUC Hammer - Last Filed: 02/09/21 11:28> (3) Ischemic cardiomyopathy: Status: Acute <PHUC Hammer - Last Filed: 02/09/21 11:28> Assessment and Plan: EF 30-35%. Continue Carvedilol, Imdur. Not on thom/ arb due to ARK/ CKD. Will add hydralazine for preload reduction. <PHUC Hammer - Last Filed: 02/09/21 11:28> EF 30-35%. Continue Carvedilol, Imdur. Not on thom/ arb due to ARK/ CKD. Will add hydralazine for preload reduction. Agree with above. <Rodo Hernandez MD - Last Filed: 02/09/21 13:32> (4) CAD (coronary artery disease): Status: Acute <PHUC Hammer - Last Filed: 02/09/21 11:28> Assessment and Plan: Hx CAD with 2 vessel CABG 02/2019. Stable at present without report of anginal sounding symptoms. Continue with medical mgt for stable CAD including carvedilol, atorvastatin. Aspirin and Plavix are currently be held for planned kidney biopsy.? Obtain EKG if he reports chest discomfort that is not pleuritic. Has anemia with Hgb 7.7/ Hct 22. No signs of active bleeding. Recommend transfusion. <PHUC Hammer - Last Filed: 02/09/21 11:28> (5) S/P CABG x 2: Status: Acute <PHUC Hammer - Last Filed: 02/09/21 11:28> (6) ICD (implantable cardioverter-defibrillator) in place: Status: Acute <PHUC Hammer - Last Filed: 02/09/21 11:28> (7) Pneumonia: Status: Acute <PHUC Hammer - Last Filed: 02/09/21 11:28> Assessment and Plan: Being managed by hospitalist. <PHUC Hammer - Last Filed: 02/09/21 11:28> Fall Risk Details Current Medications: Current Medications Generic Name Dose Route Start Last Admin Trade Name Freq PRN Reason Stop Dose Admin Acetaminophen 650 mg 02/04/21 02:34 02/07/21 22:26 Acetaminophen 325 Mg Tablet PO 650 mg Q6H PRN Administration Pain, Mild (Pain Scale 1-3) Albuterol/Ipratropium 3 ml 02/04/21 22:08 02/07/21 20:53 Albuterol/Iprat 2.5/0.5mg 3 Ml Ampul.Neb INHALE 3 ml RQ4H PRN Administration Shortness of Breath/Wheezing Amitriptyline HCl 25 mg 02/04/21 21:00 02/08/21 22:06 Amitriptyline Hcl 25 Mg Tablet PO 25 mg BEDTIME [facility] Administration Atorvastatin Calcium 80 mg 02/04/21 21:00 02/08/21 22:07 Atorvastatin Calcium 80 Mg Tablet PO 80 mg BEDTIME [facility] Administration Azelastine HCl 2 spray 02/04/21 09:00 02/09/21 09:25 Azelastine Hcl Nasal 137 Mcg/[place] 30 Ml NOSTRIL-B 2 spray BID [facility] Administration Carvedilol 12.5 mg 02/04/21 09:00 02/09/21 09:11 Carvedilol 12.5 Mg Tablet PO 12.5 mg BID [facility] Administration Protocol Dextrose 25 gm 02/04/21 02:40 Dextrose 50 % 25 Gm/50 Ml Vial IVPUSH Q15M PRN per Hypoglycemia Standing Ord. Protocol Docusate Sodium 100 mg 02/04/21 09:00 02/09/21 09:11 Docusate Sodium 100 Mg Capsule PO 100 mg BID [facility] Administration Fenofibrate 160 mg 02/04/21 09:00 02/09/21 09:10 Fenofibrate 160 Mg Tablet PO 160 mg DAILY [facility] Administration Fluticasone/Vilanterol 1 puff 02/04/21 09:00 02/09/21 09:27 Fluticasone/Vilanterol 100/25 Blst.W.Dev INHALE 1 puff DAILY [facility] Administration Furosemide 40 mg 02/08/21 08:44 Furosemide 40 Mg/4 Ml Vial IVPUSH ONCE PRN post transfusion Protocol Furosemide 80 mg 02/09/21 09:35 02/09/21 10:13 Furosemide 100 Mg/10 Ml Vial IVPUSH 80 mg BID@0900,1800 [facility] Administration Protocol Gabapentin 300 mg 02/04/21 09:00 02/09/21 09:10 Gabapentin 300 Mg Capsule PO 300 mg DAILY [facility] Administration Gabapentin 200 mg 02/07/21 21:00 02/08/21 22:07 Gabapentin 100 Mg Capsule PO 200 mg BEDTIME [facility] Administration Glucose 15 gm 02/04/21 02:40 Glucose Gel 15 Gm Gel..Gram. PO Q15M PRN per Hypoglycemia Standing Ord. Protocol Hydralazine HCl 25 mg 02/09/21 09:45 02/09/21 10:14 Hydralazine Hcl 25 Mg Tablet PO 25 mg BID [facility] Administration Protocol Hydromorphone HCl 0.25 mg 02/07/21 15:57 02/09/21 09:16 Hydromorphone Hcl 1 Mg/Ml Syringe IVPUSH 0.25 mg Q4H PRN Administration Pain, Severe (Pain Scale 7-10) Piperacillin Sod/Tazobactam 50 mls @ 100 mls/hr 02/04/21 07:00 02/09/21 06:20 Sod 3.375 gm/ Sodium Chloride IV Infused Q8H [facility] Infusion Insulin Glargine 40 unit 02/05/21 21:00 02/08/21 22:10 Insulin Glargine,Hum.Rec.Anlog 100 Unit/Ml 10 Ml Vial SUBCUT 40 unit BEDTIME [facility] Administration Insulin Human Lispro 0 - 10 unit 02/04/21 07:30 02/09/21 07:38 Insulin Lispro 100 Unit/Ml 3 M[facility] SUBCUT [facility] Protocol Insulin Human Lispro 5 unit 02/05/21 11:30 02/09/21 07:42 Insulin Lispro 100 Unit/Ml 3 Ml Vial SUBCUT Not [facility] Isosorbide Mononitrate 30 mg 02/08/21 09:00 02/09/21 09:11 Isosorbide Mononitrate 30 Mg Tab.Er.24h PO 30 mg DAILY [facility] Administration Protocol Melatonin 6 mg 02/04/21 02:34 02/06/21 21:18 Melatonin 3 Mg Tablet PO 6 mg BEDTIME PRN Administration Insomnia Nystatin 400,000 unit 02/08/21 17:00 02/09/21 09:09 Nystatin Oral Susp 500,000 Unit/5 Ml Oral.Susp PO 400,000 unit QID [facility] Administration Protocol Omeprazole 20 mg 02/04/21 09:00 02/09/21 09:10 Omeprazole 20 Mg Capsule.Dr PO 20 mg DAILY [facility] Administration Ondansetron HCl 4 mg 02/04/21 03:24 02/08/21 22:08 Ondansetron Hcl 4 Mg/2 Ml Vial IVPUSH 4 mg Q8H PRN Administration Nausea and Vomiting Pharmacy Consult 1 each 02/04/21 02:34 Consult Rx Vancomycin Dosing MISCELLANE DAILY PRN Consult order Sertraline HCl 100 mg 02/04/21 09:00 02/09/21 09:10 Sertraline Hcl 50 Mg Tablet PO 100 mg DAILY [facility] Administration Sodium Chloride 3 ml 02/04/21 08:00 02/09/21 09:09 0.9 % Sodium Chloride Flush 3 Ml Syringe IVFLUSH 3 ml QSHIFT [facility] Administration Tizanidine HCl 4 mg 02/04/21 02:41 Tizanidine Hcl 4 Mg Tablet PO BEDTIME PRN muscle spasm <PHUC Hammer - Last Filed: 02/09/21 11:28> Time Spent With Patient Time: Total time spent is greater than 50% in coordination of care (as documented) at patient's floor/unit and/or counseling patient: <PHUC Hammer - Last Filed: 02/09/21 11:28> Time with patient: 15 - 24 minutes <PHUC Hammer - Last Filed: 02/09/21 11:28> Progress Note: Quality Stroke Does the patient have a stroke diagnosis?: No <PHUC Hammer - Last Filed: 02/09/21 11:28> Procedures Date of Service Date of Service: 02/09/21 <PHUC Hammer - Last Filed: 02/09/21 11:28>
--- NOTE | 2021-02-09 11:10 | MHC.CM.PN ---
PER ROUNDS discussion, Patient is not yet medically cleared for dc (still requiring IV Lasix). Home/resume [facility] is the goal for dc and CM will follow for possible need to adjust the dc plan.
[2021-02-09 11:39] LABS: Glucose, Whole Blood 130 mg/dL (60-115)
[2021-02-09] MEDS: Insulin Lispro 100 UNIT/ML 3 ML VIAL SUBCUT ×5 (12:13→20:52)
--- NOTE | 2021-02-09 13:14 | P.PNIM_ITS ---
Subjective Subjective Date of Service: 02/09/21 Interval History: nausea Constitutional Constitutional: Reports no additional constitutional complaints Eyes Eyes: Reports no additional eye complaints Physical Exam Vital Signs: Vital Signs: Last Vital Signs Temp 97.5 F 02/09/21 11:49 Pulse 96 02/09/21 11:49 Resp 20 02/09/21 11:49 BP 144/80 H 02/09/21 11:49 Pulse Ox 94 02/09/21 11:49 Body Mass Index 30.4 General: lethargic ill appearing, resp:? diminished CVS: S1,S2,RRR GI: soft, non tender, non distended Neuro:? motor grossly intact Psych: appropriate affect Objective Data Current Medications Generic Name Dose Route Start Last Admin Trade Name Freq PRN Reason Stop Dose Admin Acetaminophen 650 mg 02/04/21 02:34 02/07/21 22:26 Acetaminophen 325 Mg Tablet PO 650 mg Q6H PRN Administration Pain, Mild (Pain Scale 1-3) Albuterol/Ipratropium 3 ml 02/04/21 22:08 02/07/21 20:53 Albuterol/Iprat 2.5/0.5mg 3 Ml Ampul.Neb INHALE 3 ml RQ4H PRN Administration Shortness of Breath/Wheezing Amitriptyline HCl 25 mg 02/04/21 21:00 02/08/21 22:06 Amitriptyline Hcl 25 Mg Tablet PO 25 mg BEDTIME [facility] Administration Atorvastatin Calcium 80 mg 02/04/21 21:00 02/08/21 22:07 Atorvastatin Calcium 80 Mg Tablet PO 80 mg BEDTIME [facility] Administration Azelastine HCl 2 spray 02/04/21 09:00 02/09/21 09:25 Azelastine Hcl Nasal 137 Mcg/[place] 30 Ml NOSTRIL-B 2 spray BID [facility] Administration Carvedilol 12.5 mg 02/04/21 09:00 02/09/21 09:11 Carvedilol 12.5 Mg Tablet PO 12.5 mg BID [facility] Administration Protocol Dextrose 25 gm 02/04/21 02:40 Dextrose 50 % 25 Gm/50 Ml Vial IVPUSH Q15M PRN per Hypoglycemia Standing Ord. Protocol Docusate Sodium 100 mg 02/04/21 09:00 02/09/21 09:11 Docusate Sodium 100 Mg Capsule PO 100 mg BID [facility] Administration Fenofibrate 160 mg 02/04/21 09:00 02/09/21 09:10 Fenofibrate 160 Mg Tablet PO 160 mg DAILY [facility] Administration Fluticasone/Vilanterol 1 puff 02/04/21 09:00 02/09/21 09:27 Fluticasone/Vilanterol 100/25 Blst.W.Dev INHALE 1 puff DAILY [facility] Administration Furosemide 40 mg 02/08/21 08:44 Furosemide 40 Mg/4 Ml Vial IVPUSH ONCE PRN post transfusion Protocol Furosemide 80 mg 02/09/21 09:35 02/09/21 10:13 Furosemide 100 Mg/10 Ml Vial IVPUSH 80 mg BID@0900,1800 [facility] Administration Protocol Gabapentin 300 mg 02/04/21 09:00 02/09/21 09:10 Gabapentin 300 Mg Capsule PO 300 mg DAILY [facility] Administration Gabapentin 200 mg 02/07/21 21:00 02/08/21 22:07 Gabapentin 100 Mg Capsule PO 200 mg BEDTIME [facility] Administration Glucose 15 gm 02/04/21 02:40 Glucose Gel 15 Gm Gel..Gram. PO Q15M PRN per Hypoglycemia Standing Ord. Protocol Hydralazine HCl 25 mg 02/09/21 09:45 02/09/21 10:14 Hydralazine Hcl 25 Mg Tablet PO 25 mg BID [facility] Administration Protocol Hydromorphone HCl 0.25 mg 02/07/21 15:57 02/09/21 09:16 Hydromorphone Hcl 1 Mg/Ml Syringe IVPUSH 0.25 mg Q4H PRN Administration Pain, Severe (Pain Scale 7-10) Piperacillin Sod/Tazobactam 50 mls @ 100 mls/hr 02/04/21 07:00 02/09/21 06:20 Sod 3.375 gm/ Sodium Chloride IV Infused Q8H [facility] Infusion Insulin Glargine 40 unit 02/05/21 21:00 02/08/21 22:10 Insulin Glargine,Hum.Rec.Anlog 100 Unit/Ml 10 Ml Vial SUBCUT 40 unit BEDTIME [facility] Administration Insulin Human Lispro 0 - 10 unit 02/04/21 07:30 02/09/21 11:43 Insulin Lispro 100 Unit/Ml 3 Ml Vial SUBCUT Not Given [facility] Protocol Insulin Human Lispro 5 unit 02/05/21 11:30 02/09/21 12:13 Insulin Lispro 100 Unit/Ml 3 Ml Vial SUBCUT 5 unit [facility] Administration Isosorbide Mononitrate 30 mg 02/08/21 09:00 02/09/21 09:11 Isosorbide Mononitrate 30 Mg Tab.Er.24h PO 30 mg DAILY [facility] Administration Protocol Melatonin 6 mg 02/04/21 02:34 02/06/21 21:18 Melatonin 3 Mg Tablet PO 6 mg BEDTIME PRN Administration Insomnia Nystatin 400,000 unit 02/08/21 17:00 02/09/21 09:09 Nystatin Oral Susp 500,000 Unit/5 Ml Oral.Susp PO 400,000 unit QID [facility] Administration Protocol Omeprazole 20 mg 02/04/21 09:00 02/09/21 09:10 Omeprazole 20 Mg Capsule.Dr PO 20 mg DAILY [facility] Administration Ondansetron HCl 4 mg 02/04/21 03:24 02/08/21 22:08 Ondansetron Hcl 4 Mg/2 Ml Vial IVPUSH 4 mg Q8H PRN Administration Nausea and Vomiting Pharmacy Consult 1 each 02/04/21 02:34 Consult Rx Vancomycin Dosing MISCELLANE DAILY PRN Consult order Sertraline HCl 100 mg 02/04/21 09:00 02/09/21 09:10 Sertraline Hcl 50 Mg Tablet PO 100 mg DAILY [facility] Administration Sodium Chloride 3 ml 02/04/21 08:00 02/09/21 09:09 0.9 % Sodium Chloride Flush 3 Ml Syringe IVFLUSH 3 ml QSHIFT [facility] Administration Tizanidine HCl 4 mg 02/04/21 02:41 Tizanidine Hcl 4 Mg Tablet PO BEDTIME PRN muscle spasm Labs CBC & Chem 7: 02/09/21 05:23 02/09/21 05:23 Labs: Laboratory Results - last 24 hr 02/05/21 02/08/21 02/08/21 07:35 09:24 16:03 MCV MCH MCHC RDW Plt Count MPV Absolute Nucleated RBC Nucleated RBC % (auto) Anion Gap Estim Creat Clear Calc Estimated GFR POC Glucose 250 H Fasting Glucose Calcium Proteinase 3 (PR3) Ab <1.0 Myeloperoxidase Ab <1.0 Blood Type O Positive Antibody Screen NEGATIVE Crossmatch See Detail 02/08/21 02/09/21 02/09/21 19:56 05:23 05:23 MCV 81.0 MCH 27.6 MCHC 34.1 RDW 15.0 Plt Count 272 D MPV 10.5 Absolute Nucleated RBC 0.020 H Nucleated RBC % (auto) 0.2 Anion Gap 19 Estim Creat Clear Calc 25.1 Estimated GFR 17 POC Glucose 260 H Fasting Glucose 145 H D Calcium 8.5 Proteinase 3 (PR3) Ab Myeloperoxidase Ab Blood Type Antibody Screen Crossmatch 02/09/21 02/09/21 02/09/21 05:59 07:11 11:25 MCV MCH MCHC RDW Plt Count MPV Absolute Nucleated RBC Nucleated RBC % (auto) Anion Gap Estim Creat Clear Calc Estimated GFR POC Glucose 140 H 139 H 130 H Fasting Glucose Calcium Proteinase 3 (PR3) Ab Myeloperoxidase Ab Blood Type Antibody Screen Crossmatch Microbiology Microbiology Results: Microbiology 02/03/21 22:49 Blood Culture - Final Blood - Venous No growth after 5 days. 02/03/21 22:31 Blood Culture - Final Blood - Venous No growth after 5 days. Assessment and Plan (1) Pneumonia: Status: Acute Assessment and Plan: 45M presented with fever and chills severe sepsis present on admission due to pneumonia with risk factors for MDR organisms continue zosyn day 6 cultures negative sepsis resolved MAURI on CKD III nephro following, follow up work up, low c4, renal function slightly improved today, holding off on kidney biopsy acute hypoxic respiratory failure due to acute on chornic systolic chf, ischemic DAPL on hold for possible biopsy continue statin IV lasix 80mg bid, hydralazine anemia of inflammation/ckd transfused 1 unit prbc 02/08/21, hgb responded appropriately DM with hyperglycemia basal bolus insulin vte prophylaxis - mechanical while awaiting possible biopsy Quality Stroke Does the patient have a stroke diagnosis?: No VTE Prior VTE?: No VTE Risk Level:: Medical - moderate - high VTE Device Contraindication: N/A - Device Ordered VTE Drug Contraindication: Treatment Not Indicated
[2021-02-09 15:11] LABS: Anti Nuclear Antibody Screen NEGATIVE (NEGATIVE)
[2021-02-09 15:19] LABS: Creatinine Urine 90.37 mg/dL; Microalbum/Creatinine Ratio Ur 465.8 ug/mg cr
[2021-02-09 15:20] LABS: Total Protein Urine Random 121 mg/dL (<12)
[2021-02-09 16:34] LABS: Glucose, Whole Blood 260 mg/dL (60-115)
[2021-02-09] MEDS: Gabapentin 100 MG CAPSULE 200 MG PO (20:49)
[2021-02-09] MEDS: Atorvastatin Calcium 80 MG TABLET PO (20:49)
[2021-02-09] MEDS: Amitriptyline HCl 25 MG TABLET PO (20:50)
[2021-02-09] MEDS: Insulin Glargine,Hum.rec.anlog 100 UNIT/ML 10 ML VIAL 40 UNIT SUBCUT (20:50)
[2021-02-09 20:56] LABS: Glucose, Whole Blood 310 mg/dL (60-115)
[2021-02-10] VITALS (10 sets, daily range): BP systolic 108–154; BP diastolic 53–79; PULSE 73–86; RESP 15–20; TEMP 36.1–36.6; O2SAT 94–98
[2021-02-10] MEDS: 0.9 % Sodium Chloride Flush 3 ML SYRINGE IVFLUSH ×3 (03:37→15:25)
[2021-02-10] MEDS: HYDROmorphone HCl 1 MG/ML SYRINGE 0.25 MG IVPUSH ×5 (03:50→21:26)
[2021-02-10] MEDS: Piperacillin Sodium/Tazobactam 3.375 GM in 0.9 % Sodium Chloride 50 ML IV ×3 (05:47→23:16)
[2021-02-10 07:00] LABS: Hematocrit 22.4 % (42-52); Hemoglobin 7.7 g/dl (14.0-18.0); Mean Corpuscular HGB Conc 34.4 g/dl (31.0-36.0); Mean Corpuscular Hemoglobin 28.5 pg (27.0-33.0); Mean Platelet Volume 10.5 fL (9.4-12.4); NRBC Pct Auto 0.3 /100WBC (0.0-0.2); Platelet Count 353 X10*3/uL (160-400); Red Cell Distribution Width 15.3 % (11.0-16.0); White Blood Count 11.4 X10*3/uL (4.8-10.8)
[2021-02-10 07:27] LABS: Glucose, Whole Blood 128 mg/dL (60-115)
[2021-02-10 07:32] LABS: Anion Gap 15 (12-20); Blood Urea Nitrogen 43 mg/dL (9-16); Calcium 8.4 mg/dL (8.4-10.2); Carbon Dioxide 29 mmol/L (22-29); Chloride 103 mmol/L (96-108); Creatinine Clr Calc Pharmacy 35.2; Estimated Glomerular Filt Rate 25; Glucose Fasting 141 mg/dL (60-99); Potassium 3.7 mmol/L (3.3-5.1); Sodium 143 mmol/L (135-145)
[2021-02-10] MEDS: Fluticasone/Vilanterol 100/25 BLST.W.DEV 1 PUFF INHALE (07:55)
[2021-02-10] MEDS: Nystatin Oral Susp 500,000 UNIT/5 ML ORAL.SUSP 400000 UNIT PO ×4 (08:05→21:19)
[2021-02-10] MEDS: Sertraline HCL 50 MG TABLET 100 MG PO (08:06)
[2021-02-10] MEDS: hydrALAZINE HCl 25 MG TABLET PO (08:06)
[2021-02-10] MEDS: Insulin Lispro 100 UNIT/ML 3 ML VIAL SUBCUT ×4 (08:06→21:19)
[2021-02-10] MEDS: carvediloL 12.5 MG TABLET PO ×2 (08:06→21:22)
[2021-02-10] MEDS: Fenofibrate 160 MG TABLET PO (08:06)
[2021-02-10] MEDS: Omeprazole 20 MG CAPSULE.DR PO (08:06)
[2021-02-10] MEDS: Gabapentin 300 MG CAPSULE PO (08:06)
[2021-02-10] MEDS: Isosorbide Mononitrate 30 MG TAB.ER.24H PO (08:06)
[2021-02-10] MEDS: Furosemide 100 MG/10 ML VIAL 80 MG IVPUSH ×2 (08:07→17:19)
[2021-02-10 08:41] LABS: B Type Natriuretic Peptide 1994 pg/mL (<100)
[2021-02-10] MEDS: Azelastine HCl Nasal 137 MCG/Spray 30 ML 2 SPRAY NOSTRIL-B (09:19)
--- NOTE | 2021-02-10 09:30 | PM.PNCARD ---
Subjective Subjective Date of Service: 02/10/21 <PHUC Hammer - Last Filed: 02/10/21 09:53> 02/10/21 <Rodo Hernandez MD - Last Filed: 02/10/21 11:18> Principal diagnosis: CAD, CABG, Ischemic CMP, PNA, ARF <PHUC Hammer - Last Filed: 02/10/21 09:53> Interval history: Cardiology follow up for ischemic CMP, fluid overload. Seen at 0815. Today he reports having diarrhea. His breathing is improving. No coughing this am. No chest pains reported. No palpitation, dizziness, swelling. Ate all his breakfast. on phone, spoke with her. <PHUC Hammer Last Filed: 02/10/21 09:53> Review of Systems Review of Systems as above <PHUC Hammer - Last Filed: 02/10/21 09:53> Yes all other systems are reviewed and are negative <PHUC Hammer - Last Filed: 02/10/21 09:53> Physical Exam Vital Signs: Last Vital Signs Temp 97.8 F 02/10/21 07:52 Pulse 78 02/10/21 07:57 Resp 20 02/10/21 07:52 BP 125/73 02/10/21 07:52 Pulse Ox 94 02/10/21 07:52 Body Mass Index 30.4 <PHUC Hammer - Last Filed: 02/10/21 09:53> Const General: cooperative, alert and awake <PHUC Hammer - Last Filed: 02/10/21 09:53> Orientation/consciousness: patient oriented x3 <PHUC Hammer - Last Filed: 02/10/21 09:53> Neck Neck: Yes normal visual inspection <PHUC Hammer Last Filed: 02/10/21 09:53> Resp Effort & Inspection: normal respiratory effort, able to speak in complete sentences and not labored <PHUC Hammer Last Filed: 02/10/21 09:53> Auscultation: clear to auscultation bilaterally, crackles (Left base), no rhonchi and no wheezes <PHUC Hammer - Last Filed: 02/10/21 09:53> Cardio Jugular venous distension: JVD present <PHUC Hammer - Last Filed: 02/10/21 09:53> Palpation: normal PMI <PHUC Hammer - Last Filed: 02/10/21 09:53> Rate: regular rate <Amanda PHUC Henry - Last Filed: 02/10/21 09:53> Rhythm: regular rhythm <PHUC Hammer - Last Filed: 02/10/21 09:53> Heart sounds: S1 normal heart sound present and S2 normal heart sound present <PHUC Hammer - Last Filed: 02/10/21 09:53> Peripheral pulses: Peripheral pulses 2+ throughout <PHUC Hammer - Last Filed: 02/10/21 09:53> GI Inspection: Yes normal to inspection <PHUC Hammer - Last Filed: 02/10/21 09:53> Neuro General: patient oriented x3 <PHUC Hammer - Last Filed: 02/10/21 09:53> Extrem General: Yes normal to inspection and No edema <PHUC Hammer - Last Filed: 02/10/21 09:53> Results Labs and Meds Result diagrams: : 02/10/21 05:25 02/10/21 05:25 <PHUC Hammer - Last Filed: 02/10/21 09:53> Lab results: Laboratory Results - last 24 hr 02/05/21 02/08/21 02/09/21 07:35 05:33 08:30 WBC RBC Hgb Hct MCV MCH MCHC RDW Plt Count MPV Absolute Nucleated RBC Nucleated RBC % (auto) Sodium Potassium Chloride Carbon Dioxide Anion Gap BUN Creatinine Estim Creat Clear Calc Estimated GFR POC Glucose Fasting Glucose Calcium B-Natriuretic Peptide U Random Total Protein Urine Creatinine 90.37 Urine Microalbumin 421.0 Microalb/Creat Ratio 465.8 PETER Screen NEGATIVE Proteinase 3 (PR3) Ab <1.0 Myeloperoxidase Ab <1.0 02/09/21 02/09/21 02/09/21 08:30 11:25 16:22 WBC RBC Hgb Hct MCV MCH MCHC RDW Plt Count MPV Absolute Nucleated RBC Nucleated RBC % (auto) Sodium Potassium Chloride Carbon Dioxide Anion Gap BUN Creatinine Estim Creat Clear Calc Estimated GFR POC Glucose 130 H 260 H Fasting Glucose Calcium B-Natriuretic Peptide U Random Total Protein 121 H Urine Creatinine Urine Microalbumin Microalb/Creat Ratio PETER Screen Proteinase 3 (PR3) Ab Myeloperoxidase Ab 02/09/21 02/10/21 02/10/21 20:42 05:25 05:25 WBC 11.4 H RBC 2.70 L Hgb 7.7 L Hct 22.4 L MCV 83.0 MCH 28.5 MCHC 34.4 RDW 15.3 Plt Count 353 D MPV 10.5 Absolute Nucleated RBC 0.040 H Nucleated RBC % (auto) 0.3 H Sodium 143 Potassium 3.7 Chloride 103 Carbon Dioxide 29 Anion Gap 15 BUN 43 H Creatinine 2.77 H Estim Creat Clear Calc 35.2 Estimated GFR 25 POC Glucose 310 H Fasting Glucose 141 H Calcium 8.4 B-Natriuretic Peptide U Random Total Protein Urine Creatinine Urine Microalbumin Microalb/Creat Ratio PETER Screen Proteinase 3 (PR3) Ab Myeloperoxidase Ab 02/10/21 02/10/21 05:25 07:13 WBC RBC Hgb Hct MCV MCH MCHC RDW Plt Count MPV Absolute Nucleated RBC Nucleated RBC % (auto) Sodium Potassium Chloride Carbon Dioxide Anion Gap BUN Creatinine Estim Creat Clear Calc Estimated GFR POC Glucose 128 H Fasting Glucose Calcium B-Natriuretic Peptide 1994 H U Random Total Protein Urine Creatinine Urine Microalbumin Microalb/Creat Ratio PETER Screen Proteinase 3 (PR3) Ab Myeloperoxidase Ab <PHUC Hammer - Last Filed: 02/10/21 09:53> Progress Note: A&P Assessment and plan (1) Acute on chronic congestive heart failure: Status: Acute <PHUC Hammer - Last Filed: 02/10/21 09:53> Assessment and Plan: Has known Ischemic CMP with last EF 30-35%. Sub Q ICD in place. He does have acute on chronic renal failure this admit with Cr up to 4.99 2 days ago. His home Torsemide 60mg bid - has been held since admit due to kidney funtion. CXR done 02/07 shows early CHF.. Since then he has been diuresed with IV Lasix. Urine outpt 2800cc yesterday. Fluid balance still + this admit but improving. Cr this am down to 2.77, GFR, BUN improving. BNP coming down. JVD much less. His O2 requirement is improving, still on 4 lliters and Sat 98%. He is still being treated for his PNA. Nephrology was planning to do a kidney biopsy, currently on hold. He continues to show improvement with diuresis - will continue on current Lasix 80mg IV BID. BNP tomorrow am.? Strict I+O monitoring, close monitoring of electrolyte and kidney function. Electrolyte replacement as warranted. We will follow.? <PHUC Hammer - Last Filed: 02/10/21 09:53> Has known Ischemic CMP with last EF 30-35%. Sub Q ICD in place. He does have acute on chronic renal failure this admit with Cr up to 4.99 2 days ago. His home Torsemide 60mg bid - has been held since admit due to kidney funtion. CXR done 02/07 shows early CHF.. Since then he has been diuresed with IV Lasix. Urine outpt 2800cc yesterday. Fluid balance still + this admit but improving. Cr this am down to 2.77, GFR, BUN improving. BNP coming down. JVD much less. His O2 requirement is improving, still on 4 lliters and Sat 98%. He is still being treated for his PNA. Nephrology was planning to do a kidney biopsy, currently on hold. He continues to show improvement with diuresis - will continue on current Lasix 80mg IV BID. BNP tomorrow am.? Strict I+O monitoring, close monitoring of electrolyte and kidney function. Electrolyte replacement as warranted. We will follow.? patient seen and examined. Case discussed with Amanda. Patient diuresing well. Creatinine is improved significantly. Continue IV diuresis. Continue maximize afterload reduction with hydralazine. Continue isosorbide. Continue supportive care for noncardiac issues. Patient complaining of diarrhea, being managed by hospitalist team. Will follow <Rodo Hernandez MD - Last Filed: 02/10/21 11:18> (2) Pneumonia: Status: Acute <PHUC Hammer - Last Filed: 02/10/21 09:53> Assessment and Plan: Clinically improving. Still on IV AB. Followed by hospitalist <PHUC Hammer - Last Filed: 02/10/21 09:53> (3) Ischemic cardiomyopathy: Status: Acute <PHUC Hammer - Last Filed: 02/10/21 09:53> Assessment and Plan: EF 30-35%. Continue Carvedilol, Imdur. Not on thom/ arb due to ARK/ CKD. Will increase hydralazine to 50mg bid. <PHUC Hammer - Last Filed: 02/10/21 09:53> (4) ICD (implantable cardioverter-defibrillator) in place: Status: Acute <PHUC Hammer Last Filed: 02/10/21 09:53> Assessment and Plan: Subcur <PHUC Hammer Last Filed: 02/10/21 09:53> (5) Renal failure (ARF), acute on chronic: Status: Acute <PHUC Hammer - Last Filed: 02/10/21 09:53> Assessment and Plan: Improving. Followed by nephrology. If kidney biopsy is not being done - then will need restart of his DAPT - aspirin and plavix <PHUC Hammer - Last Filed: 02/10/21 09:53> (6) CAD (coronary artery disease): Status: Acute <PHUC Hammer Last Filed: 02/10/21 09:53> Assessment and Plan: Hx CAD with 2 vessel CABG 02/2019. Stable at present without report of anginal sounding symptoms. Continue with medical mgt for stable CAD including carvedilol, atorvastatin. Aspirin and Plavix are currently be held for possible kidney biopsy.? Obtain EKG if he reports chest discomfort that is not pleuritic. Has anemia with Hgb 7.7/ Hct 22. No signs of active bleeding. Likely anemia of chronic disease from ARF/ CKD. Recommend transfusion. <PHUC Hammer Last Filed: 02/10/21 09:53> (7) S/P CABG x 2: Status: Acute <PHUC Hammer - Last Filed: 02/10/21 09:53> Fall Risk Details Current Medications: Current Medications Generic Name Dose Route Start Last Admin Trade Name Art PRN Reason Stop Dose Admin Acetaminophen 650 mg 02/04/21 02:34 02/07/21 22:26 Acetaminophen 325 Mg Tablet PO 650 mg Q6H PRN Administration Pain, Mild (Pain Scale 1-3) Albuterol/Ipratropium 3 ml 02/04/21 22:08 02/07/21 20:53 Albuterol/Iprat 2.5/0.5mg 3 Ml Ampul.Neb INHALE 3 ml RQ4H PRN Administration Shortness of Breath/Wheezing Amitriptyline HCl 25 mg 02/04/21 21:00 02/09/21 20:50 Amitriptyline Hcl 25 Mg Tablet PO 25 mg BEDTIME MAGUI Administration Atorvastatin Calcium 80 mg 02/04/21 21:00 02/09/21 20:49 Atorvastatin Calcium 80 Mg Tablet PO 80 mg BEDTIME MAGUI Administration Azelastine HCl 2 spray 02/04/21 09:00 02/10/21 09:19 Azelastine Hcl Nasal 137 Mcg/[place] 30 Ml NOSTRIL-B 2 spray BID MAGUI Administration Carvedilol 12.5 mg 02/04/21 09:00 02/10/21 08:06 Carvedilol 12.5 Mg Tablet PO 12.5 mg BID MAGUI Administration Protocol Dextrose 25 gm 02/04/21 02:40 Dextrose 50 % 25 Gm/50 Ml Vial IVPUSH Q15M PRN per Hypoglycemia Standing Ord. Protocol Docusate Sodium 100 mg 02/04/21 09:00 02/10/21 08:15 Docusate Sodium 100 Mg Capsule PO Not Given BID MAGUI Fenofibrate 160 mg 02/04/21 09:00 02/10/21 08:06 Fenofibrate 160 Mg Tablet PO 160 mg DAILY MAGUI Administration Fluticasone/Vilanterol 1 puff 02/04/21 09:00 02/10/21 07:55 Fluticasone/Vilanterol 100/25 Blst.W.Dev INHALE 1 puff DAILY MAGUI Administration Furosemide 40 mg 02/08/21 08:44 Furosemide 40 Mg/4 Ml Vial IVPUSH ONCE PRN post transfusion Protocol Furosemide 80 mg 02/09/21 09:35 02/10/21 08:07 Furosemide 100 Mg/10 Ml Vial IVPUSH 80 mg BID@0900,1800 [facility] Administration Protocol Gabapentin 300 mg 02/04/21 09:00 02/10/21 08:06 Gabapentin 300 Mg Capsule PO 300 mg DAILY MAGUI Administration Gabapentin 200 mg 02/07/21 21:00 02/09/21 20:49 Gabapentin 100 Mg Capsule PO 200 mg BEDTIME MAGUI Administration Glucose 15 gm 02/04/21 02:40 Glucose Gel 15 Gm Gel..Gram. PO Q15M PRN per Hypoglycemia Standing Ord. Protocol Hydralazine HCl 25 mg 02/09/21 09:45 02/10/21 08:06 Hydralazine Hcl 25 Mg Tablet PO 25 mg BID [facility] Administration Protocol Hydromorphone HCl 0.25 mg 02/07/21 15:57 02/10/21 08:07 Hydromorphone Hcl 1 Mg/Ml Syringe IVPUSH 0.25 mg Q4H PRN Administration Pain, Severe (Pain Scale 7-10) Piperacillin Sod/Tazobactam 50 mls @ 100 mls/hr 02/04/21 07:00 02/10/21 06:20 Sod 3.375 gm/ Sodium Chloride IV Infused Q8H [facility] Infusion Insulin Glargine 40 unit 02/05/21 21:00 02/09/21 20:50 Insulin Glargine,Hum.Rec.Anlog 100 Unit/Ml 10 Ml Vial SUBCUT 40 unit BEDTIME [facility] Administration Insulin Human Lispro 0 - 10 unit 02/04/21 07:30 02/10/21 07:35 Insulin Lispro 100 Unit/Ml 3 Ml Vial SUBCUT Not [facility] Protocol Insulin Human Lispro 5 unit 02/05/21 11:30 02/10/21 08:06 Insulin Lispro 100 Unit/Ml 3 Ml Vial SUBCUT 5 unit QIDACHS [facility] Administration Isosorbide Mononitrate 30 mg 02/08/21 09:00 02/10/21 08:06 Isosorbide Mononitrate 30 Mg Tab.Er.24h PO 30 mg DAILY [facility] Administration Protocol Melatonin 6 mg 02/04/21 02:34 02/06/21 21:18 Melatonin 3 Mg Tablet PO 6 mg BEDTIME PRN Administration Insomnia Nystatin 400,000 unit 02/08/21 17:00 02/10/21 08:05 Nystatin Oral Susp 500,000 Unit/5 Ml Oral.Susp PO 400,000 unit QID MAGUI Administration Protocol Omeprazole 20 mg 02/04/21 09:00 02/10/21 08:06 Omeprazole 20 Mg Capsule.Dr PO 20 mg DAILY MAGUI Administration Ondansetron HCl 4 mg 02/04/21 03:24 02/08/21 22:08 Ondansetron Hcl 4 Mg/2 Ml Vial IVPUSH 4 mg Q8H PRN Administration Nausea and Vomiting Pharmacy Consult 1 each 02/04/21 02:34 Consult Rx Vancomycin Dosing MISCELLANE DAILY PRN Consult order Sertraline HCl 100 mg 02/04/21 09:00 02/10/21 08:06 Sertraline Hcl 50 Mg Tablet PO 100 mg DAILY MAGUI Administration Sodium Chloride 3 ml 02/04/21 08:00 02/10/21 08:06 0.9 % Sodium Chloride Flush 3 Ml Syringe IVFLUSH 3 ml QSHIFT MAGUI Administration Tizanidine HCl 4 mg 02/04/21 02:41 Tizanidine Hcl 4 Mg Tablet PO BEDTIME PRN muscle spasm <PHUC Hammer - Last Filed: 02/10/21 09:53> Time Spent With Patient Time: Total time spent is greater than 50% in coordination of care (as documented) at patient's floor/unit and/or counseling patient: 22 <PHUC Hammer - Last Filed: 02/10/21 09:53> Time with patient: 15 - 24 minutes <PHUC Hammer - Last Filed: 02/10/21 09:53> Progress Note: Quality Stroke Does the patient have a stroke diagnosis?: No <PHUC Hammer Last Filed: 02/10/21 09:53> Procedures Date of Service Date of Service: 02/10/21 <PHUC Hammer - Last Filed: 02/10/21 09:53>
--- NOTE | 2021-02-10 09:40 | PM.PNNEP ---
Subjective Subjective Date of Service: 02/10/21 Principal diagnosis: CAD, CABG, Ischemic CMP, PNA, ARF Interval history: nausea Physical Exam Vital Signs: Vital Signs: Last Vital Signs Temp 97.8 F 02/10/21 07:52 Pulse 78 02/10/21 07:57 Resp 20 02/10/21 07:52 BP 125/73 02/10/21 07:52 Pulse Ox 94 02/10/21 07:52 Body Mass Index 30.4 Const: General: cooperative, no acute distress, alert and awake Orientation/consciousness: patient oriented x3 Neck: Neck: Yes normal visual inspection, Yes JVD (to just below jaw) and Yes no JVD Chest: Chest palpation & inspection: normal inspection of the chest Resp: Effort & Inspection: normal respiratory effort, able to speak in complete sentences and not labored Auscultation: clear to auscultation bilaterally, crackles (Left base), no rales, no rhonchi, no wheezes and diminished lung sounds Cardio: Jugular venous distension: JVD present and JVD Palpation: normal PMI Rate: regular rate Rhythm: regular rhythm Heart sounds: S1 normal heart sound present and S2 normal heart sound present Peripheral pulses: Peripheral pulses 2+ throughout GI: Inspection: Yes normal to inspection Neuro: General: patient oriented x3 Extrem: General: Yes normal to inspection and No edema Objective Data Labs CBC & Chem 7: 02/10/21 05:25 02/10/21 05:25 Labs: Laboratory Results - last 24 hr 02/05/21 02/08/21 02/09/21 07:35 05:33 08:30 WBC RBC Hgb Hct MCV MCH MCHC RDW Plt Count MPV Absolute Nucleated RBC Nucleated RBC % (auto) Sodium Potassium Chloride Carbon Dioxide Anion Gap BUN Creatinine Estim Creat Clear Calc Estimated GFR POC Glucose Fasting Glucose Calcium B-Natriuretic Peptide U Random Total Protein Urine Creatinine 90.37 Urine Microalbumin 421.0 Microalb/Creat Ratio 465.8 PETER Screen NEGATIVE Proteinase 3 (PR3) Ab <1.0 Myeloperoxidase Ab <1.0 02/09/21 02/09/21 02/09/21 08:30 11:25 16:22 WBC RBC Hgb Hct MCV MCH MCHC RDW Plt Count MPV Absolute Nucleated RBC Nucleated RBC % (auto) Sodium Potassium Chloride Carbon Dioxide Anion Gap BUN Creatinine Estim Creat Clear Calc Estimated GFR POC Glucose 130 H 260 H Fasting Glucose Calcium B-Natriuretic Peptide U Random Total Protein 121 H Urine Creatinine Urine Microalbumin Microalb/Creat Ratio PETER Screen Proteinase 3 (PR3) Ab Myeloperoxidase Ab 02/09/21 02/10/21 02/10/21 20:42 05:25 05:25 WBC 11.4 H RBC 2.70 L Hgb 7.7 L Hct 22.4 L MCV 83.0 MCH 28.5 MCHC 34.4 RDW 15.3 Plt Count 353 D MPV 10.5 Absolute Nucleated RBC 0.040 H Nucleated RBC % (auto) 0.3 H Sodium 143 Potassium 3.7 Chloride 103 Carbon Dioxide 29 Anion Gap 15 BUN 43 H Creatinine 2.77 H Estim Creat Clear Calc 35.2 Estimated GFR 25 POC Glucose 310 H Fasting Glucose 141 H Calcium 8.4 B-Natriuretic Peptide U Random Total Protein Urine Creatinine Urine Microalbumin Microalb/Creat Ratio PETER Screen Proteinase 3 (PR3) Ab Myeloperoxidase Ab 02/10/21 02/10/21 05:25 07:13 WBC RBC Hgb Hct MCV MCH MCHC RDW Plt Count MPV Absolute Nucleated RBC Nucleated RBC % (auto) Sodium Potassium Chloride Carbon Dioxide Anion Gap BUN Creatinine Estim Creat Clear Calc Estimated GFR POC Glucose 128 H Fasting Glucose Calcium B-Natriuretic Peptide 1994 H U Random Total Protein Urine Creatinine Urine Microalbumin Microalb/Creat Ratio PETER Screen Proteinase 3 (PR3) Ab Myeloperoxidase Ab Microbiology Microbiology Results: Microbiology 02/03/21 22:49 Blood - Venous Blood Culture - Final No growth after 5 days. 02/03/21 22:31 Blood - Venous Blood Culture - Final No growth after 5 days. Procedures Date of Service Date of Service: 02/10/21 Assessment & Plan Assessment and plan (1) Acute on chronic congestive heart failure: Status: Acute Assessment and Plan: Has known Ischemic CMP with last EF 30-35%. Sub Q ICD in place. He does have acute on chronic renal failure this admit with Cr up to 4.99 (2) Pneumonia: Status: Acute Assessment and Plan: Being managed by hospitalist. (3) Ischemic cardiomyopathy: Status: Acute Assessment and Plan: EF 30-35%. Continue Carvedilol, Imdur. Not on thom/ arb due to ARK/ CKD. Will add hydralazine for preload reduction. Agree with above. (4) ICD (implantable cardioverter-defibrillator) in place: Status: Acute (5) Renal failure (ARF), acute on chronic: Status: Acute Assessment and Plan: as above (6) CAD (coronary artery disease): Status: Acute Assessment and Plan: Hx CAD with 2 vessel CABG 02/2019. Stable at present without report of anginal sounding symptoms. Continue with medical mgt for stable CAD including carvedilol, atorvastatin. Aspirin and Plavix are currently be held for planned kidney biopsy.? Obtain EKG if he reports chest discomfort that is not pleuritic. Has anemia with Hgb 7.7/ Hct 22. No signs of active bleeding. Recommend transfusion. (7) S/P CABG x 2: Status: Acute Assessment and Plan: new serologies pending also ordered UA and urine protein his creat is improving so will hold renal bx injectafer ordered for low iron then procrit Time Spent With Patient Time: Total time spent is greater than 50% in coordination of care (as documented) at patient's floor/unit and/or counseling patient: Progress Note: Quality Stroke Does the patient have a stroke diagnosis?: No
--- NOTE | 2021-02-10 10:49 | HO.PM.IMPN ---
Subjective Subjective Date of Service: 02/10/21 Interval History: overall feeling much better, but started to have diarrhea Review of Systems cardiac: no chest pain respiratory: no sob Physical Exam Vital Signs: Vital Signs: Last Vital Signs Temp 97.8 F 02/10/21 07:52 Pulse 78 02/10/21 07:57 Resp 20 02/10/21 07:52 BP 125/73 02/10/21 07:52 Pulse Ox 94 02/10/21 07:52 Body Mass Index 30.4 General: AO X 3, ill appearing but improved Resp: diminished CVS: S1,S2,RRR GI: soft, non tender, non distended Neuro: motor grossly intact Psych: appropriate affect Objective Data Current Medications Generic Name Dose Route Start Last Admin Trade Name Freq PRN Reason Stop Dose Admin Acetaminophen 650 mg 02/04/21 02:34 02/07/21 22:26 Acetaminophen 325 Mg Tablet PO 650 mg Q6H PRN Administration Pain, Mild (Pain Scale 1-3) Albuterol/Ipratropium 3 ml 02/04/21 22:08 02/07/21 20:53 Albuterol/Iprat 2.5/0.5mg 3 Ml Ampul.Neb INHALE 3 ml RQ4H PRN Administration Shortness of Breath/Wheezing Amitriptyline HCl 25 mg 02/04/21 21:00 02/09/21 20:50 Amitriptyline Hcl 25 Mg Tablet PO 25 mg BEDTIME MAGUI Administration Atorvastatin Calcium 80 mg 02/04/21 21:00 02/09/21 20:49 Atorvastatin Calcium 80 Mg Tablet PO 80 mg BEDTIME MAGUI Administration Azelastine HCl 2 spray 02/04/21 09:00 02/10/21 09:19 Azelastine Hcl Nasal 137 Mcg/[place] 30 Ml NOSTRIL-B 2 spray BID MAGUI Administration Carvedilol 12.5 mg 02/04/21 09:00 02/10/21 08:06 Carvedilol 12.5 Mg Tablet PO 12.5 mg BID MAGUI Administration Protocol Dextrose 25 gm 02/04/21 02:40 Dextrose 50 % 25 Gm/50 Ml Vial IVPUSH Q15M PRN per Hypoglycemia Standing Ord. Protocol Docusate Sodium 100 mg 02/04/21 09:00 02/10/21 08:15 Docusate Sodium 100 Mg Capsule PO Not Given BID MAGUI Fenofibrate 160 mg 02/04/21 09:00 02/10/21 08:06 Fenofibrate 160 Mg Tablet PO 160 mg DAILY MAGUI Administration Fluticasone/Vilanterol 1 puff 02/04/21 09:00 02/10/21 07:55 Fluticasone/Vilanterol 100/25 Blst.W.Dev INHALE 1 puff DAILY MAGUI Administration Furosemide 40 mg 02/08/21 08:44 Furosemide 40 Mg/4 Ml Vial IVPUSH ONCE PRN post transfusion Protocol Furosemide 80 mg 02/09/21 09:35 02/10/21 08:07 Furosemide 100 Mg/10 Ml Vial IVPUSH 80 mg BID@0900,1800 MAGUI Administration Protocol Gabapentin 300 mg 02/04/21 09:00 02/10/21 08:06 Gabapentin 300 Mg Capsule PO 300 mg DAILY MAGUI Administration Gabapentin 200 mg 02/07/21 21:00 02/09/21 20:49 Gabapentin 100 Mg Capsule PO 200 mg BEDTIME MAGUI Administration Glucose 15 gm 02/04/21 02:40 Glucose Gel 15 Gm Gel..Gram. PO Q15M PRN per Hypoglycemia Standing Ord. Protocol Hydralazine HCl 50 mg 02/10/21 21:00 Hydralazine Hcl 50 Mg Tablet PO BID [facility] Protocol Hydromorphone HCl 0.25 mg 02/07/21 15:57 02/10/21 08:07 Hydromorphone Hcl 1 Mg/Ml Syringe IVPUSH 0.25 mg Q4H PRN Administration Pain, Severe (Pain Scale 7-10) Piperacillin Sod/Tazobactam 50 mls @ 100 mls/hr 02/04/21 07:00 02/10/21 06:20 Sod 3.375 gm/ Sodium Chloride IV Infused Q8H [facility] Infusion Insulin Glargine 40 unit 02/05/21 21:00 02/09/21 20:50 Insulin Glargine,Hum.Rec.Anlog 100 Unit/Ml 10 Ml Vial SUBCUT 40 unit BEDTIME MAGUI Administration Insulin Human Lispro 0 - 10 unit 02/04/21 07:30 02/10/21 07:35 Insulin Lispro 100 Unit/Ml 3 Ml Vial SUBCUT Not Given QIDACHS [facility] Protocol Insulin Human Lispro 5 unit 02/05/21 11:30 02/10/21 08:06 Insulin Lispro 100 Unit/Ml 3 Ml Vial SUBCUT 5 unit QIDACHS MAGUI Administration Isosorbide Mononitrate 30 mg 02/08/21 09:00 02/10/21 08:06 Isosorbide Mononitrate 30 Mg Tab.Er.24h PO 30 mg DAILY MAGUI Administration Protocol Melatonin 6 mg 02/04/21 02:34 02/06/21 21:18 Melatonin 3 Mg Tablet PO 6 mg BEDTIME PRN Administration Insomnia Nystatin 400,000 unit 02/08/21 17:00 02/10/21 08:05 Nystatin Oral Susp 500,000 Unit/5 Ml Oral.Susp PO 400,000 unit QID [facility] Administration Protocol Omeprazole 20 mg 02/04/21 09:00 02/10/21 08:06 Omeprazole 20 Mg Capsule.Dr PO 20 mg DAILY MAGUI Administration Ondansetron HCl 4 mg 02/04/21 03:24 02/08/21 22:08 Ondansetron Hcl 4 Mg/2 Ml Vial IVPUSH 4 mg Q8H PRN Administration Nausea and Vomiting Pharmacy Consult 1 each 02/04/21 02:34 Consult Rx Vancomycin Dosing MISCELLANE DAILY PRN Consult order Sertraline HCl 100 mg 02/04/21 09:00 02/10/21 08:06 Sertraline Hcl 50 Mg Tablet PO 100 mg DAILY [facility] Administration Sodium Chloride 3 ml 02/04/21 08:00 02/10/21 08:06 0.9 % Sodium Chloride Flush 3 Ml Syringe IVFLUSH 3 ml QSHIFT MAGUI Administration Tizanidine HCl 4 mg 02/04/21 02:41 Tizanidine Hcl 4 Mg Tablet PO BEDTIME PRN muscle spasm Labs CBC & Chem 7: 02/10/21 05:25 02/10/21 05:25 Labs: Laboratory Results - last 24 hr 02/08/21 02/09/21 02/09/21 05:33 08:30 08:30 MCV MCH MCHC RDW Plt Count MPV Absolute Nucleated RBC Nucleated RBC % (auto) Anion Gap Estim Creat Clear Calc Estimated GFR POC Glucose Fasting Glucose Calcium B-Natriuretic Peptide U Random Total Protein 121 H Urine Creatinine 90.37 Urine Microalbumin 421.0 Microalb/Creat Ratio 465.8 PETER Screen NEGATIVE 02/09/21 02/09/21 02/09/21 11:25 16:22 20:42 MCV MCH MCHC RDW Plt Count MPV Absolute Nucleated RBC Nucleated RBC % (auto) Anion Gap Estim Creat Clear Calc Estimated GFR POC Glucose 130 H 260 H 310 H Fasting Glucose Calcium B-Natriuretic Peptide U Random Total Protein Urine Creatinine Urine Microalbumin Microalb/Creat Ratio PETER Screen 02/10/21 02/10/21 02/10/21 05:25 05:25 05:25 MCV 83.0 MCH 28.5 MCHC 34.4 RDW 15.3 Plt Count 353 D MPV 10.5 Absolute Nucleated RBC 0.040 H Nucleated RBC % (auto) 0.3 H Anion Gap 15 Estim Creat Clear Calc 35.2 Estimated GFR 25 POC Glucose Fasting Glucose 141 H Calcium 8.4 B-Natriuretic Peptide 1994 H U Random Total Protein Urine Creatinine Urine Microalbumin Microalb/Creat Ratio PETER Screen 02/10/21 07:13 MCV MCH MCHC RDW Plt Count MPV Absolute Nucleated RBC Nucleated RBC % (auto) Anion Gap Estim Creat Clear Calc Estimated GFR POC Glucose 128 H Fasting Glucose Calcium B-Natriuretic Peptide U Random Total Protein Urine Creatinine Urine Microalbumin Microalb/Creat Ratio PETER Screen Assessment and Plan (1) Pneumonia: Status: Acute Assessment and Plan: 45M presented with fever and chills severe sepsis present on admission due to pneumonia with risk factors for MDR organisms continue zosyn day 7 cultures negative sepsis resolved diarrhea check cdif, if negative - imodium MAURI on CKD III ?cardiorenal nephro following, follow up work up, low c4, renal function continues to improve, holding off on kidney biopsy monitor acute hypoxic respiratory failure due to acute on chornic systolic chf, ischemic will restart DAPL as kidney biopsy unlikely at this point continue statin IV lasix 80mg bid, hydralazine anemia of inflammation/ckd transfused 1 unit prbc 02/08/21, hgb responded appropriately DM with hyperglycemia basal bolus insulin vte prophylaxis - heparin Quality Stroke Does the patient have a stroke diagnosis?: No VTE Prior VTE?: No VTE Risk Level:: Medical - moderate - high VTE Device Contraindication: N/A - Device Ordered VTE Drug Contraindication: Treatment Not Indicated
[2021-02-10 11:25] LABS: Glucose, Whole Blood 103 mg/dL (60-115)
[2021-02-10 12:00] LABS: CDiff Gene PCR NEGATIVE (Negative)
[2021-02-10] MEDS: Heparin Sodium,Porcine 5,000 UNIT/ML VIAL 5000 UNIT SUBCUT (12:22)
[2021-02-10] MEDS: Loperamide HCl 2 MG CAPSULE PO ×2 (14:56→21:20)
[2021-02-10 16:21] LABS: Glucose, Whole Blood 100 mg/dL (60-115)
[2021-02-10] MEDS: Acetaminophen 325 MG TABLET 650 MG PO ×2 (17:18→23:16)
[2021-02-10 20:50] LABS: Glucose, Whole Blood 193 mg/dL (60-115)
[2021-02-10] MEDS: Insulin Glargine,Hum.rec.anlog 100 UNIT/ML 10 ML VIAL 40 UNIT SUBCUT (21:18)
[2021-02-10] MEDS: Gabapentin 100 MG CAPSULE 200 MG PO (21:20)
[2021-02-10] MEDS: Melatonin 3 MG TABLET 6 MG PO (21:21)
[2021-02-10] MEDS: Atorvastatin Calcium 80 MG TABLET PO (21:21)
[2021-02-10] MEDS: Amitriptyline HCl 25 MG TABLET PO (21:21)
[2021-02-10] MEDS: hydrALAZINE HCl 50 MG TABLET PO (21:21)
[2021-02-10 22:37] LABS: IgA 93 mg/dL (47-310); IgG 2157 mg/dL (600-1640); IgM 17 mg/dL (50-300)
[2021-02-11] VITALS (14 sets, daily range): BP systolic 112–169; BP diastolic 55–81; PULSE 69–88; RESP 14–22; TEMP 36.5–36.7; O2SAT 93–98
--- NOTE | 2021-02-11 | ECG_ITS ---
Test Reason : LEFT SIDED CHEST P Blood Pressure : / mmHG Vent. Rate : 083 BPM Atrial Rate : 083 BPM P-R Int : 146 ms QRS Dur : 082 ms QT Int : 426 ms P-R-T Axes : 049 009 102 degrees QTc Int : 500 ms Normal sinus rhythm Inferior infarct , age undetermined Prolonged QT Abnormal ECG No previous ECGs available Referred By: Abran Wright Electronically Signed By:LAY TAMAYO MD
[2021-02-11] MEDS: 0.9 % Sodium Chloride Flush 3 ML SYRINGE IVFLUSH ×4 (01:41→23:47)
[2021-02-11] MEDS: HYDROmorphone HCl 1 MG/ML SYRINGE 0.25 MG IVPUSH ×4 (05:52→21:44)
[2021-02-11] MEDS: Acetaminophen 325 MG TABLET 650 MG PO (05:52)
[2021-02-11] MEDS: Piperacillin Sodium/Tazobactam 3.375 GM in 0.9 % Sodium Chloride 50 ML IV (05:56)
[2021-02-11 07:00] LABS: B Type Natriuretic Peptide 1087 pg/mL (<100)
[2021-02-11 07:09] LABS: Anion Gap 19 (12-20); Blood Urea Nitrogen 32 mg/dL (9-16); Calcium 8.3 mg/dL (8.4-10.2); Carbon Dioxide 25 mmol/L (22-29); Chloride 103 mmol/L (96-108); Creatinine Clr Calc Pharmacy 42.8; Estimated Glomerular Filt Rate 31; Glucose Fasting 93 mg/dL (60-99); Sodium 143 mmol/L (135-145)
[2021-02-11 07:19] LABS: Glucose, Whole Blood 98 mg/dL (60-115)
[2021-02-11 07:31] LABS: Hematocrit 25.2 % (42-52); Hemoglobin 8.4 g/dl (14.0-18.0); Mean Corpuscular HGB Conc 33.3 g/dl (31.0-36.0); Mean Corpuscular Hemoglobin 27.9 pg (27.0-33.0); Mean Corpuscular Volume 83.7 fL (80-98); Mean Platelet Volume 9.5 fL (9.4-12.4); NRBC Pct Auto 0.7 /100WBC (0.0-0.2); Platelet Count 412 X10*3/uL (160-400); Red Blood Count 3.01 X10*6/uL (4.60-5.80); Red Cell Distribution Width 15.4 % (11.0-16.0)
[2021-02-11] MEDS: Furosemide 100 MG/10 ML VIAL 80 MG IVPUSH (08:10)
[2021-02-11] MEDS: Sertraline HCL 50 MG TABLET 100 MG PO (08:11)
[2021-02-11] MEDS: Aspirin Enteric Coated 81 MG TABLET.DR PO (08:11)
[2021-02-11] MEDS: Clopidogrel Bisulfate 75 MG TABLET PO (08:11)
[2021-02-11] MEDS: Nystatin Oral Susp 500,000 UNIT/5 ML ORAL.SUSP 400000 UNIT PO ×3 (08:11→16:39)
[2021-02-11] MEDS: Fenofibrate 160 MG TABLET PO (08:11)
[2021-02-11] MEDS: Omeprazole 20 MG CAPSULE.DR PO (08:11)
[2021-02-11] MEDS: Docusate Sodium 100 MG CAPSULE PO (08:11)
[2021-02-11] MEDS: Gabapentin 300 MG CAPSULE PO (08:11)
[2021-02-11] MEDS: hydrALAZINE HCl 50 MG TABLET PO ×2 (08:12→20:01)
[2021-02-11] MEDS: carvediloL 12.5 MG TABLET PO ×2 (08:12→20:05)
[2021-02-11] MEDS: Isosorbide Mononitrate 30 MG TAB.ER.24H PO (08:13)
[2021-02-11] MEDS: Insulin Lispro 100 UNIT/ML 3 ML VIAL SUBCUT ×7 (08:19→21:42)
[2021-02-11] MEDS: Azelastine HCl Nasal 137 MCG/Spray 30 ML 2 SPRAY NOSTRIL-B (08:20)
--- NOTE | 2021-02-11 08:28 | P.PNNP_ITS ---
Subjective Subjective Date of Service: 02/11/21 Principal diagnosis: CAD, CABG, Ischemic CMP, PNA, ARF Interval history: overall feeling much better Physical Exam Vital Signs: Vital Signs: Last Vital Signs Temp 98.0 F 02/11/21 07:40 Pulse 86 02/11/21 08:13 Resp 19 02/11/21 07:40 BP 128/79 02/11/21 08:13 Pulse Ox 97 02/11/21 07:40 Body Mass Index 30.4 Const: General: cooperative, no acute distress, alert and awake Orientation/consciousness: patient oriented x3 Neck: Neck: Yes normal visual inspection, Yes JVD (to just below jaw) and Yes no JVD Chest: Chest palpation & inspection: normal inspection of the chest Resp: Effort & Inspection: normal respiratory effort, able to speak in complete sentences and not labored Auscultation: clear to auscultation bilaterally, crackles (Left base), no rales, no rhonchi, no wheezes and di minished lung sounds Cardio: Jugular venous distension: JVD present and JVD Palpation: normal PMI Rate: regular rate Rhythm: regular rhythm Heart sounds: S1 normal heart sound present and S2 normal heart sound present Peripheral pulses: Peripheral pulses 2+ throughout GI: Inspection: Yes normal to inspection Neuro: General: patient oriented x3 Extrem: General: Yes normal to inspection and No edema Objective Data Labs CBC & Chem 7: 02/11/21 07:22 02/11/21 05:35 Labs: Laboratory Results - last 24 hr 02/05/21 02/08/21 02/10/21 06:06 05:33 05:25 WBC RBC Hgb Hct MCV MCH MCHC RDW Plt Count MPV Absolute Nucleated RBC Nucleated RBC % (auto) Sodium Potassium Chloride Carbon Dioxide Anion Gap BUN Creatinine Estim Creat Clear Calc Estimated GFR POC Glucose Fasting Glucose Calcium Magnesium B-Natriuretic Peptide 1994 H IgG Total 2157 H IgA Total 93 IgM 17 L JEANA Interpretation SEE NOTE PETER Titer TNP PETER Titer 2 TNP PETER Titer 3 TNP PETER Pattern TNP PETER Pattern 2 TNP PETER Pattern 3 TNP C. difficile Tox B Gene 02/10/21 02/10/21 02/10/21 10:45 11:00 16:12 WBC RBC Hgb Hct MCV MCH MCHC RDW Plt Count MPV Absolute Nucleated RBC Nucleated RBC % (auto) Sodium Potassium Chloride Carbon Dioxide Anion Gap BUN Creatinine Estim Creat Clear Calc Estimated GFR POC Glucose 103 100 Fasting Glucose Calcium Magnesium B-Natriuretic Peptide IgG Total IgA Total IgM JEANA Interpretation PETER Titer PETER Titer 2 PETER Titer 3 PETER Pattern PETER Pattern 2 PETER Pattern 3 C. difficile Tox B Gene NEGATIVE 02/10/21 02/11/21 02/11/21 20:20 05:35 05:35 WBC RBC Hgb Hct MCV MCH MCHC RDW Plt Count MPV Absolute Nucleated RBC Nucleated RBC % (auto) Sodium 143 Potassium 4.0 Chloride 103 Carbon Dioxide 25 Anion Gap 19 BUN 32 H Creatinine 2.28 H Estim Creat Clear Calc 42.8 Estimated GFR 31 POC Glucose 193 H Fasting Glucose 93 Calcium 8.3 L Magnesium 2.0 B-Natriuretic Peptide 1087 H IgG Total IgA Total IgM JEANA Interpretation PETER Titer PETER Titer 2 PETER Titer 3 PETER Pattern PETER Pattern 2 PETER Pattern 3 C. difficile Tox B Gene 02/11/21 02/11/21 07:05 07:22 WBC 10.0 RBC 3.01 L Hgb 8.4 L Hct 25.2 L MCV 83.7 MCH 27.9 MCHC 33.3 RDW 15.4 Plt Count 412 H MPV 9.5 Absolute Nucleated RBC 0.070 H Nucleated RBC % (auto) 0.7 H Sodium Potassium Chloride Carbon Dioxide Anion Gap BUN Creatinine Estim Creat Clear Calc Estimated GFR POC Glucose 98 Fasting Glucose Calcium Magnesium B-Natriuretic Peptide IgG Total IgA Total IgM JEANA Interpretation PETER Titer PETER Titer 2 PETER Titer 3 PETER Pattern PETER Pattern 2 PETER Pattern 3 C. difficile Tox B Gene Microbiology Microbiology Results: Microbiology 02/03/21 22:49 Blood - Venous Blood Culture - Final No growth after 5 days. 02/03/21 22:31 Blood - Venous Blood Culture - Final No growth after 5 days. Procedures Date of Service Date of Service: 02/11/21 Assessment & Plan Assessment and plan (1) Acute on chronic congestive heart failure: Status: Acute Assessment and Plan: Has known Ischemic CMP with last EF 30-35%. Sub Q ICD in place. He does have acute on chronic renal failure this admit with Cr up to 4.99 2 days ago. His home Torsemide 60mg bid - has been held since admit due to kidney function. CXR done 02/07 shows early CHF.. Since then he has been diuresed with IV Lasix. Urine outpt 2800cc yesterday. Fluid balance still + this admit but improving. Cr this am down to 2.77, GFR, BUN improving. BNP coming down. JVD much less. His O2 requirement is improving, still on 4 lliters and Sat 98%. He is still being treated for his PNA. kidney biopsy, currently on hold. He continues to show improvement with diuresis - will continue on current Lasix 80mg IV BID. he has a monoclonal protien Free LC pending suggest heme consult (2) Pneumonia: Status: Acute Assessment and Plan: Clinically improving. Still on IV AB. Followed by hospitalist (3) Ischemic cardiomyopathy: Status: Acute Assessment and Plan: EF 30-35%. Continue Carvedilol, Imdur. Not on thom/ arb due to ARK/ CKD. Will in crease hydralazine to 50mg bid. (4) ICD (implantable cardioverter-defibrillator) in place: Status: Acute Assessment and Plan: Subcur (5) Renal failure (ARF), acute on chronic: Status: Acute Assessment and Plan: Improving. Followed by nephrology. If kidney biopsy is not being done - then will need restart of his DAPT - aspirin and plavix (6) CAD (coronary artery disease): Status: Acute Assessment and Plan: Hx CAD with 2 vessel CABG 02/2019. Stable at present without report of anginal sounding symptoms. Continue with medical mgt for stable CAD including carvedilol, atorvastatin. Aspirin and Plavix are currently be held for possible kidney biopsy.? Obtain EKG if he reports chest discomfort that is not pleuritic. Has anemia with Hgb 7.7/ Hct 22. No signs of active bleeding. Likely anemia of chronic disease from ARF/ CKD. Recommend transfusion. (7) S/P CABG x 2: Status: Acute Time Spent With Patient Time: Total time spent is greater than 50% in coordination of care (as documented) at patient's floor/unit and/or counseling patient: Progress Note: Quality Stroke Does the patient have a stroke diagnosis?: No
--- NOTE | 2021-02-11 10:28 | PM.PNCARD ---
Subjective Subjective Date of Service: 02/11/21 <PHUC Hammer - Last Filed: 02/11/21 11:00> 02/11/21 <Rodo Hernandez MD - Last Filed: 02/11/21 15:48> Principal diagnosis: CAD, CABG, Ischemic CMP, CHF, PNA, ARF <PHUC Hammer - Last Filed: 02/11/21 11:00> Interval history: Cardiology follow up for ischemic CMP, CHF. Seen at 0830. Today he reports feeling better. His breathing is comfortable, no cough. No longer having CP with deep inspiration. No palpitation, dizziness. Steady on feet in room. <PHUC Hammer - Last Filed: 02/11/21 11:00> Review of Systems Review of Systems as above <PHUC Hammer - Last Filed: 02/11/21 11:00> Yes all other systems are reviewed and are negative <PHUC Hammer - Last Filed: 02/11/21 11:00> Physical Exam Vital Signs: Last Vital Signs Temp 98.0 F 02/11/21 07:40 Pulse 86 02/11/21 08:13 Resp 19 02/11/21 07:40 BP 128/79 02/11/21 08:13 Pulse Ox 97 02/11/21 07:40 Body Mass Index 30.4 <PHUC Hammer - Last Filed: 02/11/21 11:00> Const General: cooperative, no acute distress, alert and awake <PHUC Hammer - Last Filed: 02/11/21 11:00> Orientation/consciousness: patient oriented x3 <PHUC Hammer - Last Filed: 02/11/21 11:00> Neck Neck: Yes normal visual inspection <PHUC Hammer Last Filed: 02/11/21 11:00> Resp Effort & Inspection: normal respiratory effort, able to speak in complete sentences and not labored <PHUC Hammer Last Filed: 02/11/21 11:00> Auscultation: clear to auscultation bilaterally (coarse left base), no rhonchi and no wheezes <RONAN HammerC - Last Filed: 02/11/21 11:00> Cardio Palpation: normal PMI <RONAN HammerC - Last Filed: 02/11/21 11:00> Rate: regular rate <RONAN HammerC - Last Filed: 02/11/21 11:00> Rhythm: regular rhythm <RONAN HammerC - Last Filed: 02/11/21 11:00> Heart sounds: S1 normal heart sound present and S2 normal heart sound present <RONAN HammerC - Last Filed: 02/11/21 11:00> Peripheral pulses: Peripheral pulses 2+ throughout <RONAN HammerC - Last Filed: 02/11/21 11:00> GI Inspection: Yes normal to inspection <RONAN HammerC - Last Filed: 02/11/21 11:00> Neuro General: patient oriented x3 <RONAN HammerC - Last Filed: 02/11/21 11:00> Extrem General: Yes normal to inspection and No edema <RONAN HammerC - Last Filed: 02/11/21 11:00> Results Labs and Meds Result diagrams: : 02/11/21 07:22 02/11/21 05:35 <RONAN HammerC - Last Filed: 02/11/21 11:00> Lab results: Laboratory Results - last 24 hr 02/05/21 02/08/21 02/10/21 06:06 05:33 10:45 WBC RBC Hgb Hct MCV MCH MCHC RDW Plt Count MPV Absolute Nucleated RBC Nucleated RBC % (auto) Sodium Potassium Chloride Carbon Dioxide Anion Gap BUN Creatinine Estim Creat Clear Calc Estimated GFR POC Glucose Fasting Glucose Calcium Magnesium B-Natriuretic Peptide IgG Total 2157 H IgA Total 93 IgM 17 L JEANA Interpretation SEE NOTE PETER Titer TNP PETER Titer 2 TNP PETER Titer 3 TNP PETER Pattern TNP PETER Pattern 2 TNP PETER Pattern 3 TNP C. difficile Tox B Gene NEGATIVE 02/10/21 02/10/21 02/10/21 11:00 16:12 20:20 WBC RBC Hgb Hct MCV MCH MCHC RDW Plt Count MPV Absolute Nucleated RBC Nucleated RBC % (auto) Sodium Potassium Chloride Carbon Dioxide Anion Gap BUN Creatinine Estim Creat Clear Calc Estimated GFR POC Glucose 103 100 193 H Fasting Glucose Calcium Magnesium B-Natriuretic Peptide IgG Total IgA Total IgM JEANA Interpretation PETER Titer PETER Titer 2 PETER Titer 3 PETER Pattern PETER Pattern 2 PETER Pattern 3 C. difficile Tox B Gene 02/11/21 02/11/21 02/11/21 05:35 05:35 07:05 WBC RBC Hgb Hct MCV MCH MCHC RDW Plt Count MPV Absolute Nucleated RBC Nucleated RBC % (auto) Sodium 143 Potassium 4.0 Chloride 103 Carbon Dioxide 25 Anion Gap 19 BUN 32 H Creatinine 2.28 H Estim Creat Clear Calc 42.8 Estimated GFR 31 POC Glucose 98 Fasting Glucose 93 Calcium 8.3 L Magnesium 2.0 B-Natriuretic Peptide 1087 H IgG Total IgA Total IgM JEANA Interpretation PETER Titer PETER Titer 2 PETER Titer 3 PETER Pattern PETER Pattern 2 PETER Pattern 3 C. difficile Tox B Gene 02/11/21 07:22 WBC 10.0 RBC 3.01 L Hgb 8.4 L Hct 25.2 L MCV 83.7 MCH 27.9 MCHC 33.3 RDW 15.4 Plt Count 412 H MPV 9.5 Absolute Nucleated RBC 0.070 H Nucleated RBC % (auto) 0.7 H Sodium Potassium Chloride Carbon Dioxide Anion Gap BUN Creatinine Estim Creat Clear Calc Estimated GFR POC Glucose Fasting Glucose Calcium Magnesium B-Natriuretic Peptide IgG Total IgA Total IgM JEANA Interpretation PETER Titer PETER Titer 2 PETER Titer 3 PETER Pattern PETER Pattern 2 PETER Pattern 3 C. difficile Tox B Gene <PHUC Hammer - Last Filed: 02/11/21 11:00> Progress Note: A&P Assessment and plan (1) Acute on chronic congestive heart failure: Status: Acute <PHUC Hammer - Last Filed: 02/11/21 11:00> Assessment and Plan: Hx of ischemic CMP, EF 30-35%, ICD in place, with ARF on CKD, then acute on chronic systolic HF this admit when diuretics were held and IV fluid had been given. Being diuresed over the last few days with clinical improvement in his condition. Cr had been up to 4.99 and now down to 2.28 today. BNP was 1994 yesterday and is 1087 today. Urine outpt 2800cc in last 24 hr. On exam he does not appear fluid overloaded. Will stop IV Lasix and change him back to his usual home Torsemide 60mg po BID (may need to bring from home). We will sign off and continue to follow with him as outpt. <PHUC Hammer - Last Filed: 02/11/21 11:00> Hx of ischemic CMP, EF 30-35%, ICD in place, with ARF on CKD, then acute on chronic systolic HF this admit when diuretics were held and IV fluid had been given. Being diuresed over the last few days with clinical improvement in his condition. Cr had been up to 4.99 and now down to 2.28 today. BNP was 1994 yesterday and is 1087 today. Urine outpt 2800cc in last 24 hr. On exam he does not appear fluid overloaded. Will stop IV Lasix and change him back to his usual home Torsemide 60mg po BID (may need to bring from home). We will sign off and continue to follow with him as outpt. Patient seen and examined. Case discussed with Amanda. Patient is feeling very well. Doing very well. Switch to p.o. diuretics, his home dose of torsemide. Continue hydralazine isosorbide. Will sign of the case and follow as outpatient. <Rodo Hernandez MD - Last Filed: 02/11/21 15:48> (2) Ischemic cardiomyopathy: Status: Acute <PHUC Hammer - Last Filed: 02/11/21 11:00> Assessment and Plan: Followed by Dr Hernandez as outpt. Continue Carvedilol for neurohormonal modulation. No thom/ arb due to ARF/ CKD. Continue Imdur and hydralazine for preload and afterload reduction. <PHUC Hammer - Last Filed: 02/11/21 11:00> (3) Pneumonia: Status: Acute <PHUC Hammer - Last Filed: 02/11/21 11:00> Assessment and Plan: Clinically improved. Followed by hospitalist <PHUC Hammer - Last Filed: 02/11/21 11:00> (4) CAD (coronary artery disease): Status: Acute <PHUC Hammer - Last Filed: 02/11/21 11:00> Assessment and Plan: Stable, no report of anginal sounding symptoms. Continue Aspirin, Plavix, Atorvastatin, Carvedilol. <PHUC Hammer - Last Filed: 02/11/21 11:00> (5) S/P CABG x 2: Status: Acute <PHUC Hammer - Last Filed: 02/11/21 11:00> (6) ICD (implantable cardioverter-defibrillator) in place: Status: Acute <PHUC Hammer - Last Filed: 02/11/21 11:00> Assessment and Plan: Subq ICD in placed. Monitored by our cardiology office. <PHUC Hammer - Last Filed: 02/11/21 11:00> (7) HTN (hypertension): Status: Acute <PHUC Hammer Last Filed: 02/11/21 11:00> Assessment and Plan: Normal range, 128/79 this am. Continue current med management <PHUC Hammer - Last Filed: 02/11/21 11:00> Fall Risk Details Current Medications: Current Medications Generic Name Dose Route Start Last Admin Trade Name Freq PRN Reason Stop Dose Admin Acetaminophen 650 mg 02/04/21 02:34 02/11/21 05:52 Acetaminophen 325 Mg Tablet PO 650 mg Q6H PRN Administration Pain, Mild (Pain Scale 1-3) Albuterol/Ipratropium 3 ml 02/04/21 22:08 02/07/21 20:53 Albuterol/Iprat 2.5/0.5mg 3 Ml Ampul.Neb INHALE 3 ml RQ4H PRN Administration Shortness of Breath/Wheezing Amitriptyline HCl 25 mg 02/04/21 21:00 02/10/21 21:21 Amitriptyline Hcl 25 Mg Tablet PO 25 mg BEDTIME MAGUI Administration Aspirin 81 mg 02/11/21 09:00 02/11/21 08:11 Aspirin Enteric Coated 81 Mg Tablet.Dr PO 81 mg DAILY MAGUI Administration Atorvastatin Calcium 80 mg 02/04/21 21:00 02/10/21 21:21 Atorvastatin Calcium 80 Mg Tablet PO 80 mg BEDTIME MAGUI Administration Azelastine HCl 2 spray 02/04/21 09:00 02/11/21 08:20 Azelastine Hcl Nasal 137 Mcg/[place] 30 Ml NOSTRIL-B 2 spray BID MAGUI Administration Carvedilol 12.5 mg 02/04/21 09:00 02/11/21 08:12 Carvedilol 12.5 Mg Tablet PO 12.5 mg BID MAGUI Administration Protocol Clopidogrel Bisulfate 75 mg 02/11/21 09:00 02/11/21 08:11 Clopidogrel Bisulfate 75 Mg Tablet PO 75 mg DAILY MAGUI Administration Dextrose 25 gm 02/04/21 02:40 Dextrose 50 % 25 Gm/50 Ml Vial IVPUSH Q15M PRN per Hypoglycemia Standing Ord. Protocol Docusate Sodium 100 mg 02/04/21 09:00 02/11/21 08:11 Docusate Sodium 100 Mg Capsule PO 100 mg BID MAGUI Administration Fenofibrate 160 mg 02/04/21 09:00 02/11/21 08:11 Fenofibrate 160 Mg Tablet PO 160 mg DAILY MAGUI Administration Fluticasone/Vilanterol 1 puff 02/04/21 09:00 02/10/21 07:55 Fluticasone/Vilanterol 100/25 Blst.W.Dev INHALE 1 puff DAILY MAGUI Administration Furosemide 40 mg 02/08/21 08:44 Furosemide 40 Mg/4 Ml Vial IVPUSH ONCE PRN post transfusion Protocol Furosemide 80 mg 02/09/21 09:35 02/11/21 08:10 Furosemide 100 Mg/10 Ml Vial IVPUSH 80 mg BID@0900,1800 MAGUI Administration Protocol Gabapentin 300 mg 02/04/21 09:00 02/11/21 08:11 Gabapentin 300 Mg Capsule PO 300 mg DAILY MAGUI Administration Gabapentin 200 mg 02/07/21 21:00 02/10/21 21:20 Gabapentin 100 Mg Capsule PO 200 mg BEDTIME MAGUI Administration Glucose 15 gm 02/04/21 02:40 Glucose Gel 15 Gm Gel..Gram. PO Q15M PRN per Hypoglycemia Standing Ord. Protocol Heparin Sodium (Porcine) 5,000 unit 02/10/21 11:00 02/11/21 04:26 Heparin Sodium,Porcine 5,000 Unit/Ml Vial SUBCUT Not Given Q8H MAGUI Hydralazine HCl 50 mg 02/10/21 21:00 02/11/21 08:12 Hydralazine Hcl 50 Mg Tablet PO 50 mg BID MAGUI Administration Protocol Hydromorphone HCl 0.25 mg 02/07/21 15:57 02/11/21 05:52 Hydromorphone Hcl 1 Mg/Ml Syringe IVPUSH 0.25 mg Q4H PRN Administration Pain, Severe (Pain Scale 7-10) Insulin Glargine 40 unit 02/05/21 21:00 02/10/21 21:18 Insulin Glargine,Hum.Rec.Anlog 100 Unit/Ml 10 Ml Vial SUBCUT 40 unit BEDTIME MAGUI Administration Insulin Human Lispro 0 - 10 unit 02/04/21 07:30 02/11/21 08:46 Insulin Lispro 100 Unit/Ml 3 Ml Vial SUBCUT Not Given QIDAS [facility] Protocol Insulin Human Lispro 5 unit 02/05/21 11:30 02/11/21 08:19 Insulin Lispro 100 Unit/Ml 3 Ml Vial SUBCUT 5 unit QIDACHS [facility] Administration Isosorbide Mononitrate 30 mg 02/08/21 09:00 02/11/21 08:13 Isosorbide Mononitrate 30 Mg Tab.Er.24h PO 30 mg DAILY [facility] Administration Protocol Loperamide HCl 2 mg 02/10/21 14:22 02/10/21 21:20 Loperamide Hcl 2 Mg Capsule PO 2 mg Q4H PRN Administration diarrhea Melatonin 6 mg 02/04/21 02:34 02/10/21 21:21 Melatonin 3 Mg Tablet PO 6 mg BEDTIME PRN Administration Insomnia Nystatin 400,000 unit 02/08/21 17:00 02/11/21 08:11 Nystatin Oral Susp 500,000 Unit/5 Ml Oral.Susp PO 400,000 unit QID [facility] Administration Protocol Omeprazole 20 mg 02/04/21 09:00 02/11/21 08:11 Omeprazole 20 Mg Capsule.Dr PO 20 mg DAILY [facility] Administration Ondansetron HCl 4 mg 02/04/21 03:24 02/08/21 22:08 Ondansetron Hcl 4 Mg/2 Ml Vial IVPUSH 4 mg Q8H PRN Administration Nausea and Vomiting Sertraline HCl 100 mg 02/04/21 09:00 02/11/21 08:11 Sertraline Hcl 50 Mg Tablet PO 100 mg DAILY [facility] Administration Sodium Chloride 3 ml 02/04/21 08:00 08/11/21 08:20 0.9 % Sodium Chloride Flush 3 Ml Syringe IVFLUSH 3 ml QSHIFT MAGUI Administration Tizanidine HCl 4 mg 02/04/21 02:41 Tizanidine Hcl 4 Mg Tablet PO BEDTIME PRN muscle spasm <PHUC Hammer - Last Filed: 02/11/21 11:00> Time Spent With Patient Time: Total time spent is greater than 50% in coordination of care (as documented) at patient's floor/unit and/or counseling patient: 24 <PHUC Hammer - Last Filed: 02/11/21 11:00> Time with patient: 15 - 24 minutes <PHUC Hammer - Last Filed: 02/11/21 11:00> Progress Note: Quality Stroke Does the patient have a stroke diagnosis?: No <PHUC Hammer - Last Filed: 02/11/21 11:00> Procedures Date of Service Date of Service: 02/11/21 <PHUC Hammer - Last Filed: 02/11/21 11:00>
[2021-02-11] MEDS: Fluticasone/Vilanterol 100/25 BLST.W.DEV 1 PUFF INHALE (11:01)
--- NOTE | 2021-02-11 11:02 | PM.HEMONCCN ---
Subjective - Subjective Chief complaint: Consult for monoclonal gammopathy. Patient: new to practice Consult date: 02/11/21 Requesting Physician: Adriana. Primary Care Provider: Guido Burch MD Medical Summary: DIAGNOSIS: MGUS. HPI - Consult Narrative Reason for consult: Consult for: Monoclonal gammopathy. Narrative: Pérez Bateman is a pleasant 45 year old gentleman who was admitted with a chief complaint of increased shortness of breath and cough. He had fevers, and headaches since last Tuesday. Denies any blurry visions. Also had noticed increased generalized weakness and shortness of breath. Complains of cough. He took Tylenol with no significant improvement in his fevers. Patient complained of multiple episodes of vomiting; denies any blood in the vomitus. Denies any abdominal discomfort. Denies any chest pain or palpitations. Patient denies any neck stiffness. ER course: Noted to have pneumonia with small effusion on the CT scan; CT abdomen showed no acute findings. Concern was pneumonia and bacteremia. Patient was given IV vancomycin and Zosyn. Noted to have MAURI on CKD. Was given IV hydration. CT chest abdomen: * Coalescent parenchymal consolidation present within the inferolateral left upper lobe, statistically related to a bronchopneumonia, however organizing pneumonia could also have this appearance. * Chronic round atelectasis within the left lower lobe accompanied by a small loculated pleural effusion. * Reactive mediastinal lymph nodes. * No acute findings within the abdomen or pelvis. * Hepatic steatosis. Patient's acute kidney injury as reflected by a serum creatinine of 3.32, whereas there is mention made when he had discharge from [facility] on the 19 of January, his creatinine was 1.7. Past medical history of: Hypertension, Hyperlipidemia, Diabetes, Coronary artery status post CABG x2, CHF with EF of 30-35%; Recent admission to the [facility] for pneumonia/lobular portal effusion status post chest tube placement; Review of Systems - Constitutional Reports system reviewed and no additional complaints, except as documented, Reports fatigue, Reports fever(s), Reports lack of energy, Reports malaise, Reports poor appetite, Reports weight loss - Eyes Reports system reviewed and no additional complaints, except as documented - ENT Reports system reviewed and no additional complaints, except as documented - Cardiovascular Reports system reviewed and no additional complaints, except as documented - Respiratory Reports no additional respiratory complaints, Reports chest congestion, Reports cough - Gastrointestinal Reports system reviewed and no additional complaints, except as documented - Genitourinary Genitourinary: Reports no additional male genitourinary complaints - Musculoskeletal Reports system reviewed and no additional complaints, except as documented - Integumentary/Breasts Skin/Breast: Reports no additional skin complaints - Neurologic Reports system reviewed and no additional complaints, except as documented - Psychiatric Reports system reviewed and no additional complaints, except as documented - Endocrine Reports no additional endocrine complaints - Hematologic/Lymphatic Reports system reviewed and no additional complaints, except as documented - Allergic/Immunologic Reports system reviewed and no additional complaints, except as documented Oncology Screenings - ECOG Performance Status ECOG Performance Status: 2 [facility] Medical History: Medical History (Last Reviewed 02/04/21 @ 05:36 by Dayna Pedersen RN) CAD (coronary artery disease) Diabetes mellitus HLD (hyperlipidemia) HTN (hypertension) ICD (implantable cardioverter-defibrillator) in place Ischemic cardiomyopathy Functional capacity: uses cane/walker Patient : No Family History: Family History (Last Reviewed 02/03/21 @ 22:18 by Kentrell Fletcher MD) Father No problems noted. Mother No problems noted. Surgical History: Surgical History (Last Reviewed 02/04/21 @ 05:36 by Dayna Pedersen RN) Hx of cardiac cath Onset Date: ~2017 S/P CABG x 2 Onset Date: ~02/2019 Social History: Social History (Last Reviewed 02/03/21 @ 22:18 by Kentrell Fletcher MD) Living Situation History: Household Members: Spouse Housing: House Do you presently have visiting nurse or other home services: No Alcohol History: Alcohol intake: never Tobacco History: Patient Tobacco Use Status: Never used Tobacco Smoked in Last 30 Days: No Substance Use History: Use of substances other than those prescribed or required for medical reasons: Yes Substance Use Type: Marijuana Substance Use Frequency: Occasionally Currently Displaying Signs/Symptoms of Drug Intoxication Withdrawal: No Domestic Abuse History: Have you been hit, kicked, punched, or otherwise hurt by someone within the past year? If so, by whom?: No Do you feel safe in your current relationship?: Yes Is there a partner from a previous relationship who is making you feel unsafe now?: No Are you made to feel afraid or neglected: No Advance Directives: Advance Directives: No Advance Directives Information Provided: Yes Homicidal Assessment: Do you have thoughts of harming others: None Do you have a plan to hurt others: No Plan Nutrition Assessment: Recently lost weight without trying: No Patient : No Poor oral hygiene: No Occupation Assessmet: service: No Current occupational status: unemployed Home Medications and Allergies Current Medications: Current Medications Generic Name Dose Route Start Last Admin Trade Name Taiwoq PRN Reason Stop Dose Admin Acetaminophen 650 mg 02/04/21 02:34 02/11/21 05:52 Acetaminophen 325 Mg Tablet PO 650 mg Q6H PRN Administration Pain, Mild (Pain Scale 1-3) Albuterol/Ipratropium 3 ml 02/04/21 22:08 02/07/21 20:53 Albuterol/Iprat 2.5/0.5mg 3 Ml Ampul.Neb INHALE 3 ml RQ4H PRN Administration Shortness of Breath/Wheezing Amitriptyline HCl 25 mg 02/04/21 21:00 02/10/21 21:21 Amitriptyline Hcl 25 Mg Tablet PO 25 mg BEDTIME MAGUI Administration Aspirin 81 mg 02/11/21 09:00 02/11/21 08:11 Aspirin Enteric Coated 81 Mg Tablet. PO 81 mg DAILY MAGUI Administration Atorvastatin Calcium 80 mg 02/04/21 21:00 02/10/21 21:21 Atorvastatin Calcium 80 Mg Tablet PO 80 mg BEDTIME MAGUI Administration Azelastine HCl 2 spray 02/04/21 09:00 02/11/21 08:20 Azelastine Hcl Nasal 137 Mcg/[place] 30 Ml NOSTRIL-B 2 spray BID MAGUI Administration Carvedilol 12.5 mg 02/04/21 09:00 02/11/21 08:12 Carvedilol 12.5 Mg Tablet PO 12.5 mg BID MAGUI Administration Protocol Clopidogrel Bisulfate 75 mg 02/11/21 09:00 02/11/21 08:11 Clopidogrel Bisulfate 75 Mg Tablet PO 75 mg DAILY MAGUI Administration Dextrose 25 gm 02/04/21 02:40 Dextrose 50 % 25 Gm/50 Ml Vial IVPUSH Q15M PRN per Hypoglycemia Standing Ord. Protocol Docusate Sodium 100 mg 02/04/21 09:00 02/11/21 08:11 Docusate Sodium 100 Mg Capsule PO 100 mg BID MAGUI Administration Fenofibrate 160 mg 02/04/21 09:00 02/11/21 08:11 Fenofibrate 160 Mg Tablet PO 160 mg DAILY MAGUI Administration Fluticasone/Vilanterol 1 puff 02/04/21 09:00 02/11/21 11:01 Fluticasone/Vilanterol 100/25 Blst.W.Dev INHALE 1 puff DAILY MAGUI Administration Furosemide 40 mg 02/08/21 08:44 Furosemide 40 Mg/4 Ml Vial IVPUSH ONCE PRN post transfusion Protocol Furosemide 80 mg 02/09/21 09:35 02/11/21 08:10 Furosemide 100 Mg/10 Ml Vial IVPUSH 80 mg BID@0900,1800 MAGUI Administration Protocol Gabapentin 300 mg 02/04/21 09:00 02/11/21 08:11 Gabapentin 300 Mg Capsule PO 300 mg DAILY MAGUI Administration Gabapentin 200 mg 02/07/21 21:00 02/10/21 21:20 Gabapentin 100 Mg Capsule PO 200 mg BEDTIME MAGUI Administration Glucose 15 gm 02/04/21 02:40 Glucose Gel 15 Gm Gel..Gram. PO Q15M PRN per Hypoglycemia Standing Ord. Protocol Heparin Sodium (Porcine) 5,000 unit 02/10/21 11:00 02/11/21 04:26 Heparin Sodium,Porcine 5,000 Unit/Ml Vial SUBCUT Not Given Q8H [facility] Hydralazine HCl 50 mg 02/10/21 21:00 02/11/21 08:12 Hydralazine Hcl 50 Mg Tablet PO 50 mg BID MAGUI Administration Protocol Hydromorphone HCl 0.25 mg 02/07/21 15:57 02/11/21 05:52 Hydromorphone Hcl 1 Mg/Ml Syringe IVPUSH 0.25 mg Q4H PRN Administration Pain, Severe (Pain Scale 7-10) Insulin Glargine 40 unit 02/05/21 21:00 02/10/21 21:18 Insulin Glargine,Hum.Rec.Anlog 100 Unit/Ml 10 Ml Vial SUBCUT 40 unit BEDTIME [facility] Administration Insulin Human Lispro 0 - 10 unit 02/04/21 07:30 02/11/21 08:46 Insulin Lispro 100 Unit/Ml 3 Ml Vial SUBCUT Not Given QIDACHS [facility] Protocol Insulin Human Lispro 5 unit 02/05/21 11:30 02/11/21 08:19 Insulin Lispro 100 Unit/Ml 3 Ml Vial SUBCUT 5 unit QIDACHS [facility] Administration Isosorbide Mononitrate 30 mg 02/08/21 09:00 02/11/21 08:13 Isosorbide Mononitrate 30 Mg Tab.Er.24h PO 30 mg DAILY MAGUI Administration Protocol Loperamide HCl 2 mg 02/10/21 14:22 02/10/21 21:20 Loperamide Hcl 2 Mg Capsule PO 2 mg Q4H PRN Administration diarrhea Melatonin 6 mg 02/04/21 02:34 02/10/21 21:21 Melatonin 3 Mg Tablet PO 6 mg BEDTIME PRN Administration Insomnia Nystatin 400,000 unit 02/08/21 17:00 02/11/21 08:11 Nystatin Oral Susp 500,000 Unit/5 Ml Oral.Susp PO 400,000 unit QID [facility] Administration Protocol Omeprazole 20 mg 02/04/21 09:00 02/11/21 08:11 Omeprazole 20 Mg Capsule.Dr PO 20 mg DAILY [facility] Administration Ondansetron HCl 4 mg 02/04/21 03:24 02/08/21 22:08 Ondansetron Hcl 4 Mg/2 Ml Vial IVPUSH 4 mg Q8H PRN Administration Nausea and Vomiting Sertraline HCl 100 mg 02/04/21 09:00 02/11/21 08:11 Sertraline Hcl 50 Mg Tablet PO 100 mg DAILY [facility] Administration Sodium Chloride 3 ml 02/04/21 08:00 02/11/21 08:20 0.9 % Sodium Chloride Flush 3 Ml Syringe IVFLUSH 3 ml QSHIFT [facility] Administration Tizanidine HCl 4 mg 02/04/21 02:41 Tizanidine Hcl 4 Mg Tablet PO BEDTIME PRN muscle spasm Home Medications Medication Instructions Recorded Confirmed Type albuterol sulfate 90 mcg/actuation 2 puff INHALATION Q4H PRN 04/25/20 02/04/21 History aerosol inhaler amitriptyline 25 mg tablet 25 mg PO BEDTIME 04/25/20 02/04/21 History aspirin 81 mg tablet,delayed 81 mg PO DAILY 04/25/20 02/04/21 History release atorvastatin 80 mg tablet 80 mg PO BEDTIME 04/25/20 02/04/21 History clopidogrel 75 mg tablet 75 mg PO DAILY 04/25/20 02/04/21 History docusate sodium 100 mg capsule 100 mg PO BID 04/25/20 02/04/21 History gabapentin 300 mg capsule 300 mg PO DAILY 04/25/20 02/04/21 History (Neurontin) insulin glargine 100 unit/mL (3 36 unit SUBCUT QAM ml 04/25/20 02/04/21 History mL) subcutaneous pen (Lantus Solostar U-100 Insulin) pantoprazole 40 mg tablet,delayed 40 mg PO DAILY 04/25/20 02/04/21 History release sertraline 25 mg tablet 100 mg PO DAILY 04/25/20 02/04/21 History sitagliptin 25 mg tablet 25 mg PO DAILY 04/25/20 02/04/21 History azelastine 137 mcg (0.1 %) nasal 2 spray INTRANASAL BID 02/04/21 02/04/21 History spray aerosol fenofibrate nanocrystallized 145 1 tab PO DAILY 02/04/21 02/04/21 History mg tablet fluticasone 250 mcg-salmeterol 50 1 inh INHALATION Q12H 02/04/21 02/04/21 History mcg/dose blistr powdr for inhalation gabapentin 300 mg capsule 600 mg PO BEDTIME 02/04/21 02/04/21 History insulin lispro 100 unit/mL 10 - 15 unit SUBCUT TID 02/04/21 02/04/21 History subcutaneous pen (Humalog KwikPen (U-100) Insulin) pen needle, diabetic 31 gauge x 02/04/21 02/04/21 History 5/16 (BD Ultra-Fine Short Pen Needle) tizanidine 4 mg tablet 1 tab PO BEDTIME PRN 02/04/21 02/04/21 History torsemide 20 mg tablet 3 tab PO BID 02/04/21 02/04/21 History Allergies Allergy/AdvReac Type Severity Reaction Status Date / Time egg [EGG] Allergy Severe NAUSEA, Verified 10/24/20 10:40 ITCHY THROAT meperidine [From DEMEROL] Allergy Unknown AGITATION Verified 10/24/20 10:40 Physical Exam Vital signs: Vital Signs Temp 98.0 F 02/11/21 07:40 Pulse 88 02/11/21 11:01 Resp 19 02/11/21 07:40 BP 128/79 02/11/21 08:13 Pulse Ox 97 02/11/21 07:40 Intake & Output 02/10/21 02/11/21 02/11/21 18:59 06:59 18:59 Intake Total 670 / 1970 1300 / 1970 Output Total 1300 / 2800 1500 / 2800 Balance -630 / -830 -200 / -830 Urine Output (Average ml/kg/hr) 1.23 1.42 1.42 Intake: Intake, Oral Amount 620 / 1820 1200 / 1820 Intake, IV Amount 50 / 150 100 / 150 Piperacillin Sodium/Tazobactam 50 / 150 100 / 150 3.375 gm In 0.9 % Sodium Chloride 50 ml @ 100 mls/hr IV Q8H [facility] Rx#:[id number] Output: Output, Urine Amount 1500 / 1500 Output, Urine Amount (Catheter) 1300 / 1300 Urethral 1000 / 1000 miller 300 / 300 Other: Breakfast % Eaten 100% Lunch % Eaten 100% Dinner % Eaten 100% Urine Color Yellow Pale Yellow Last Bowel Movement 02/10/21 Continuous Bladder Irrigation Fluid - Amount Drained miller 400 Weight 88 kg - Constitutional Present: mild distress - Routine HEENT Exam Head: Present: normal inspection ENT: Present: mucous membranes moist - Routine Respiratory Exam Present: CTAB - Routine Cardiovascular Exam Cardiovascular: Present: RRR, S1, S2 - Routine Abdominal Exam Present: normal bowel sounds, nontender - Routine Rectal Exam Patient deferred: digital exam - Routine Extremities Exam Present: nontender - Routine Skin Exam Present: intact - Routine Neurological Exam Present: alert, oriented X3 - Detailed Neurological Exam: Coma Scale Eye Opening: Spontaneous (4) Verbal Response: Oriented (5) Hem/Onc Consult Result - Labs CBC & Chem 7: 02/11/21 07:22 02/11/21 05:35 Labs: Short CBC 02/11/21 Range/Units 07:22 WBC 10.0 (4.8-10.8) X10*3/uL Hgb 8.4 L (14.0-18.0) g/dl Hct 25.2 L (42-52) % Plt Count 412 H (160-400) X10*3/uL BMP 02/11/21 05:35 Sodium 143 Potassium 4.0 Chloride 103 Carbon Dioxide 25 BUN 32 H Creatinine 2.28 H Calcium 8.3 L Assessment and Plan (1) Monoclonal gammopathy Status: Acute 45-year-old gentleman admitted with pneumonia question of sepsis, on broad-spectrum antibiotics. Noted to be in acute on chronic kidney disease. Had SIEP checked. IgG 2157, IgA 93, IgM 17. Consistent with IgG kappa monoclonal gammopathy. Serum free light chain ratio is pending. DIFFERENTIAL DIAGNOSIS: 1. MGUS: Is possible. 2. MULTIPLE MYELOMA: More likely given the reciprocal suppression of the IgA and IgM proteins. PLAN: Will proceed with further workup. Serum free light chain ratio is pending. Will check skeletal survey: No abnormal lytic or sclerotic lesions identified on skeletal survey. Beta 2 microglobulin for prognosis. 24 hour urine for immunoglobulins. If myeloma is confirmed will then proceed with a bone marrow exam for further evaluation. Thank you, CC: Adriana.
[2021-02-11 11:04] LABS: Glucose, Whole Blood 215 mg/dL (60-115)
[2021-02-11] MEDS: Heparin Sodium,Porcine 5,000 UNIT/ML VIAL 5000 UNIT SUBCUT ×2 (11:37→18:01)
--- NOTE | 2021-02-11 12:51 | MHC.CM.PN ---
Per MD, Patient is not yet medically cleared for dc today (IV Dilaudid, IV Lasix). Home/resume [facility] is the goal and CM will follow for possible need to adjust the dc plan.
--- NOTE | 2021-02-11 13:25 | HO.PM.IMPN ---
Subjective Subjective Date of Service: 02/11/21 Interval History: the patient was seen and evaluated this morning Sitting in the chair, requiring oxygen supplement Blood work showing elevated IgG Denies any fever, chills or shortness of breath No reported other overnight events. Systemic review: No fever, chills but has generalized weakness No chest pain, palpitation Reporting exertional shortness of breath or coughing No abdominal pain, nausea or vomiting No urinary symptoms No any rash or wounds Physical Exam Vital Signs: Vital Signs: Last Vital Signs Temp 97.7 F 02/11/21 11:17 Pulse 69 02/11/21 11:17 Resp 20 02/11/21 11:38 BP 112/63 02/11/21 11:17 Pulse Ox 96 02/11/21 11:17 Body Mass Index 30.4 Objective Data Current Medications Generic Name Dose Route Start Last Admin Trade Name Freq PRN Reason Stop Dose Admin Acetaminophen 650 mg 02/04/21 02:34 02/11/21 05:52 Acetaminophen 325 Mg Tablet PO 650 mg Q6H PRN Administration Pain, Mild (Pain Scale 1-3) Albuterol/Ipratropium 3 ml 02/04/21 22:08 02/07/21 20:53 Albuterol/Iprat 2.5/0.5mg 3 Ml Ampul.Neb INHALE 3 ml RQ4H PRN Administration Shortness of Breath/Wheezing Amitriptyline HCl 25 mg 02/04/21 21:00 02/10/21 21:21 Amitriptyline Hcl 25 Mg Tablet PO 25 mg BEDTIME MAGUI Administration Aspirin 81 mg 02/11/21 09:00 02/11/21 08:11 Aspirin Enteric Coated 81 Mg Tablet.Dr PO 81 mg DAILY MAGUI Administration Atorvastatin Calcium 80 mg 02/04/21 21:00 02/10/21 21:21 Atorvastatin Calcium 80 Mg Tablet PO 80 mg BEDTIME MAGUI Administration Azelastine HCl 2 spray 02/04/21 09:00 02/11/21 08:20 Azelastine Hcl Nasal 137 Mcg/[place] 30 Ml NOSTRIL-B 2 spray BID MAGUI Administration Carvedilol 12.5 mg 02/04/21 09:00 02/11/21 08:12 Carvedilol 12.5 Mg Tablet PO 12.5 mg BID MAGUI Administration Protocol Clopidogrel Bisulfate 75 mg 02/11/21 09:00 02/11/21 08:11 Clopidogrel Bisulfate 75 Mg Tablet PO 75 mg DAILY MAGUI Administration Dextrose 25 gm 02/04/21 02:40 Dextrose 50 % 25 Gm/50 Ml Vial IVPUSH Q15M PRN per Hypoglycemia Standing Ord. Protocol Docusate Sodium 100 mg 02/04/21 09:00 02/11/21 08:11 Docusate Sodium 100 Mg Capsule PO 100 mg BID MAGUI Administration Fenofibrate 160 mg 02/04/21 09:00 02/11/21 08:11 Fenofibrate 160 Mg Tablet PO 160 mg DAILY MAGUI Administration Fluticasone/Vilanterol 1 puff 02/04/21 09:00 02/11/21 11:01 Fluticasone/Vilanterol 100/25 Blst.W.Dev INHALE 1 puff DAILY MAGUI Administration Gabapentin 300 mg 02/04/21 09:00 02/11/21 08:11 Gabapentin 300 Mg Capsule PO 300 mg DAILY MAGUI Administration Gabapentin 200 mg 02/07/21 21:00 02/10/21 21:20 Gabapentin 100 Mg Capsule PO 200 mg BEDTIME MAGUI Administration Glucose 15 gm 02/04/21 02:40 Glucose Gel 15 Gm Gel..Gram. PO Q15M PRN per Hypoglycemia Standing Ord. Protocol Heparin Sodium (Porcine) 5,000 unit 02/10/21 11:00 02/11/21 11:37 Heparin Sodium,Porcine 5,000 Unit/Ml Vial SUBCUT 5,000 unit Q8H MAGUI Administration Hydralazine HCl 50 mg 02/10/21 21:00 02/11/21 08:12 Hydralazine Hcl 50 Mg Tablet PO 50 mg BID MAGUI Administration Protocol Hydromorphone HCl 0.25 mg 02/07/21 15:57 02/11/21 11:38 Hydromorphone Hcl 1 Mg/Ml Syringe IVPUSH 0.25 mg Q4H PRN Administration Pain, Severe (Pain Scale 7-10) Insulin Glargine 40 unit 02/05/21 21:00 02/10/21 21:18 Insulin Glargine,Hum.Rec.Anlog 100 Unit/Ml 10 Ml Vial SUBCUT 40 unit BEDTIME MAGUI Administration Insulin Human Lispro 0 - 10 unit 02/04/21 07:30 02/11/21 11:38 Insulin Lispro 100 Unit/Ml 3 Ml Vial SUBCUT 4 unit QIDACHS MAGUI Administration Protocol Insulin Human Lispro 5 unit 02/05/21 11:30 02/11/21 11:38 Insulin Lispro 100 Unit/Ml 3 Ml Vial SUBCUT 5 unit QIDAS [facility] Administration Isosorbide Mononitrate 30 mg 02/08/21 09:00 02/11/21 08:13 Isosorbide Mononitrate 30 Mg Tab.Er.24h PO 30 mg DAILY [facility] Administration Protocol Loperamide HCl 2 mg 02/10/21 14:22 02/10/21 21:20 Loperamide Hcl 2 Mg Capsule PO 2 mg Q4H PRN Administration diarrhea Melatonin 6 mg 02/04/21 02:34 02/10/21 21:21 Melatonin 3 Mg Tablet PO 6 mg BEDTIME PRN Administration Insomnia Nystatin 400,000 unit 02/08/21 17:00 02/11/21 08:11 Nystatin Oral Susp 500,000 Unit/5 Ml Oral.Susp PO 400,000 unit QID [facility] Administration Protocol Omeprazole 20 mg 02/04/21 09:00 02/11/21 08:11 Omeprazole 20 Mg Capsule.Dr PO 20 mg DAILY [facility] Administration Ondansetron HCl 4 mg 02/04/21 03:24 02/08/21 22:08 Ondansetron Hcl 4 Mg/2 Ml Vial IVPUSH 4 mg Q8H PRN Administration Nausea and Vomiting Sertraline HCl 100 mg 02/04/21 09:00 02/11/21 08:11 Sertraline Hcl 50 Mg Tablet PO 100 mg DAILY [facility] Administration Sodium Chloride 3 ml 02/04/21 08:00 02/11/21 08:20 0.9 % Sodium Chloride Flush 3 Ml Syringe IVFLUSH 3 ml QSHIFT [facility] Administration Tizanidine HCl 4 mg 02/04/21 02:41 Tizanidine Hcl 4 Mg Tablet PO BEDTIME PRN muscle spasm Torsemide 60 mg 02/11/21 21:00 Torsemide 20 Mg Tablet PO BID [facility] Protocol Labs CBC & Chem 7: 02/11/21 07:22 02/11/21 05:35 Labs: Laboratory Results - last 24 hr 02/05/21 02/10/21 02/10/21 06:06 16:12 20:20 MCV MCH MCHC RDW Plt Count MPV Absolute Nucleated RBC Nucleated RBC % (auto) Anion Gap Estim Creat Clear Calc Estimated GFR POC Glucose 100 193 H Fasting Glucose Calcium Magnesium B-Natriuretic Peptide IgG Total 2157 H IgA Total 93 IgM 17 L JEANA Interpretation SEE NOTE 02/11/21 02/11/21 02/11/21 05:35 05:35 07:05 MCV MCH MCHC RDW Plt Count MPV Absolute Nucleated RBC Nucleated RBC % (auto) Anion Gap 19 Estim Creat Clear Calc 42.8 Estimated GFR 31 POC Glucose 98 Fasting Glucose 93 Calcium 8.3 L Magnesium 2.0 B-Natriuretic Peptide 1087 H IgG Total IgA Total IgM JEANA Interpretation 02/11/21 02/11/21 07:22 10:51 MCV 83.7 MCH 27.9 MCHC 33.3 RDW 15.4 Plt Count 412 H MPV 9.5 Absolute Nucleated RBC 0.070 H Nucleated RBC % (auto) 0.7 H Anion Gap Estim Creat Clear Calc Estimated GFR POC Glucose 215 H Fasting Glucose Calcium Magnesium B-Natriuretic Peptide IgG Total IgA Total IgM JEANA Interpretation Assessment and Plan (1) Monoclonal gammopathy: Status: Acute (2) Acute on chronic congestive heart failure: Status: Acute (3) Pneumonia: Status: Acute Assessment and Plan: 45M presented with fever and chills severe sepsis present on admission, resolved due to pneumonia with risk factors for MDR organisms Finish 7 days of Zosyn To use Augmentin p.o. cultures negative sepsis resolved diarrhea Negative cdif, Can use imodium monoclonal gammopathy IgG 2157, IgA 93, IgM 17. Consistent with IgG kappa monoclonal gammopathy Pending free light chain ratio To do 24 hour urine for immunofixation Repeated 2 microglobulin Skeletal survey Hematology input appreciated MAURI on CKD III improving nephro following, follow up work up, low c4, renal function continues to improve, holding off on kidney biopsy monitor acute hypoxic respiratory failure due to acute on chornic systolic chf, ischemic will restart DAPL as kidney biopsy unlikely at this point continue statin Change Lasix to p.o. torsemide anemia of inflammation/ckd transfused 1 unit prbc 02/08/21, hgb responded appropriately DM with hyperglycemia basal bolus insulin vte prophylaxis - heparin Quality Stroke Does the patient have a stroke diagnosis?: No VTE Prior VTE?: No VTE Risk Level:: Medical - moderate - high VTE Device Contraindication: N/A - Device Ordered VTE Drug Contraindication: Treatment Not Indicated
[2021-02-11 16:35] LABS: Glucose, Whole Blood 217 mg/dL (60-115)
--- NOTE | 2021-02-11 17:17 | PC.NURSE ---
Patient in IMC for monitoring of sepsis PNA. Tele showing NSR. Lungs dim, has been ransitioned to RA after RT completed Home O2 eval. Patient ambulating in gould and room independently. Back pain medicated throughout the day with IV Dilaudid 0.25mg with good effect. Meds as ordered. Blood sugars covered per sliding scale and with scheduled Humalog. Heme/Onc consult ordered, radiology orders completed. in to visit this evening.
[2021-02-11 19:56] LABS: Troponin-I High Sensitivity 11.1 ng/L (<3.5-35.0)
[2021-02-11] MEDS: Torsemide 20 MG TABLET 60 MG PO (19:59)
[2021-02-11] MEDS: Atorvastatin Calcium 80 MG TABLET PO (20:00)
[2021-02-11] MEDS: Amitriptyline HCl 25 MG TABLET PO (20:01)
[2021-02-11] MEDS: Gabapentin 100 MG CAPSULE 200 MG PO (20:01)
[2021-02-11] MEDS: Loperamide HCl 2 MG CAPSULE PO (20:03)
[2021-02-11 20:41] LABS: Glucose, Whole Blood 217 mg/dL (60-115)
[2021-02-11] MEDS: Insulin Glargine,Hum.rec.anlog 100 UNIT/ML 10 ML VIAL 40 UNIT SUBCUT (21:41)
[2021-02-12] MEDS: Heparin Sodium,Porcine 5,000 UNIT/ML VIAL 5000 UNIT SUBCUT ×2 (03:26→13:05)
[2021-02-12 03:30] VITALS: BP 120/60; PULSE 78; RESP 17; TEMP 36.6; O2SAT 97
[2021-02-12] MEDS: HYDROmorphone HCl 1 MG/ML SYRINGE 0.25 MG IVPUSH (03:30)
[2021-02-12 07:10] VITALS: BP 146/74; PULSE 77; RESP 19; TEMP 36.3; O2SAT 96
[2021-02-12 07:40] LABS: Glucose, Whole Blood 79 mg/dL (60-115)
[2021-02-12 07:41] LABS: B Type Natriuretic Peptide 761 pg/mL (<100); Lactate Dehydrogenase 312 U/L (118-273)
[2021-02-12 07:43] LABS: Anion Gap 17 (12-20); Blood Urea Nitrogen 24 mg/dL (9-16); Calcium 8.3 mg/dL (8.4-10.2); Carbon Dioxide 29 mmol/L (22-29); Chloride 101 mmol/L (96-108); Creatinine Clr Calc Pharmacy 54.5; Estimated Glomerular Filt Rate 41; Glucose Random 71 mg/dL (60-115); Potassium 3.8 mmol/L (3.3-5.1); Sodium 143 mmol/L (135-145)
[2021-02-12] MEDS: Azelastine HCl Nasal 137 MCG/Spray 30 ML 2 SPRAY NOSTRIL-B (08:55)
[2021-02-12] MEDS: Torsemide 20 MG TABLET 60 MG PO (08:56)
[2021-02-12] MEDS: 0.9 % Sodium Chloride Flush 3 ML SYRINGE IVFLUSH (08:56)
[2021-02-12 08:57] VITALS: BP 146/74; PULSE 77
[2021-02-12] MEDS: carvediloL 12.5 MG TABLET PO (08:57)
[2021-02-12] MEDS: Clopidogrel Bisulfate 75 MG TABLET PO (08:57)
[2021-02-12] MEDS: Gabapentin 300 MG CAPSULE PO (08:57)
[2021-02-12 08:58] VITALS: BP 146/74; PULSE 77
[2021-02-12] MEDS: hydrALAZINE HCl 50 MG TABLET PO (08:58)
[2021-02-12] MEDS: Omeprazole 20 MG CAPSULE.DR PO (08:58)
[2021-02-12] MEDS: Isosorbide Mononitrate 30 MG TAB.ER.24H PO (08:58)
[2021-02-12] MEDS: Aspirin Enteric Coated 81 MG TABLET.DR PO (08:59)
[2021-02-12] MEDS: Fenofibrate 160 MG TABLET PO (08:59)
[2021-02-12] MEDS: Amoxicillin/Potassium Clav 875 MG TABLET PO (08:59)
[2021-02-12] MEDS: Sertraline HCL 50 MG TABLET 100 MG PO (08:59)
[2021-02-12] MEDS: Nystatin Oral Susp 500,000 UNIT/5 ML ORAL.SUSP 400000 UNIT PO (09:00)
[2021-02-12 11:43] VITALS: BP 114/66; PULSE 84; RESP 19; TEMP 37.1; O2SAT 96
[2021-02-12 12:01] LABS: Glucose, Whole Blood 163 mg/dL (60-115)
[2021-02-12] MEDS: Acetaminophen 325 MG TABLET 650 MG PO (13:02)
[2021-02-12] MEDS: Insulin Lispro 100 UNIT/ML 3 ML VIAL SUBCUT ×2 (13:03)
--- NOTE | 2021-02-12 14:59 | MHC.CM.PN ---
Patient has been medically cleared for dc to home today with services. Patient was active with [facility], who has been notified of today's dc.
--- NOTE | 2021-02-12 15:00 | P.DS_ITS ---
DS: Providers Provider Date of Service: 02/12/21 Date of admission: 02/04/21 02:34 Primary care physician: Guido Burch MD Consults: 02/04/21 02:34 Consult to Nephrology Routine Consulting Provider: Taye Horton Reason for consultation: MAURI on CKD 02/04/21 03:26 Consult to Cardiology Routine Consulting Provider: Yayo Barba Reason for consultation: CHF 02/11/21 08:36 Consult to Hematology / Oncology Routine Consulting Provider: Conrado Villasenor Reason for consultation: elevated monoclonal ab for your eval of MM and need of BX DS: Diagnosis Discharge Diagnosis (1) Monoclonal gammopathy: Status: Acute (2) Acute on chronic congestive heart failure: Status: Acute (3) Pneumonia: Status: Acute (4) Sepsis: Status: Acute (5) Renal failure (ARF), acute on chronic: Status: Acute DS: Medications Discharge Medications Home Medications: Home Medications Medication Instructions Recorded Confirmed albuterol sulfate 90 mcg/actuation 2 puff INHALATION Q4H PRN 04/25/20 02/04/21 aerosol inhaler amitriptyline 25 mg tablet 25 mg PO BEDTIME 04/25/20 02/04/21 aspirin 81 mg tablet,delayed 81 mg PO DAILY 04/25/20 02/04/21 release atorvastatin 80 mg tablet 80 mg PO BEDTIME 04/25/20 02/04/21 clopidogrel 75 mg tablet 75 mg PO DAILY 04/25/20 02/04/21 docusate sodium 100 mg capsule 100 mg PO BID 04/25/20 02/04/21 gabapentin 300 mg capsule 300 mg PO DAILY 04/25/20 02/04/21 (Neurontin) insulin glargine 100 unit/mL (3 36 unit SUBCUT QAM ml 04/25/20 02/04/21 mL) subcutaneous pen (Lantus Solostar U-100 Insulin) pantoprazole 40 mg tablet,delayed 40 mg PO DAILY 04/25/20 02/04/21 release sertraline 25 mg tablet 100 mg PO DAILY 04/25/20 02/04/21 sitagliptin 25 mg tablet 25 mg PO DAILY 04/25/20 02/04/21 azelastine 137 mcg (0.1 %) nasal 2 spray INTRANASAL BID 02/04/21 02/04/21 spray aerosol fenofibrate nanocrystallized 145 1 tab PO DAILY 02/04/21 02/04/21 mg tablet fluticasone 250 mcg-salmeterol 50 1 inh INHALATION Q12H 02/04/21 02/04/21 mcg/dose blistr powdr for inhalation gabapentin 300 mg capsule 600 mg PO BEDTIME 02/04/21 02/04/21 insulin lispro 100 unit/mL 10 - 15 unit SUBCUT TID 02/04/21 02/04/21 subcutaneous pen (Humalog KwikPen (U-100) Insulin) pen needle, diabetic 31 gauge x 02/04/21 02/04/21 5/16 (BD Ultra-Fine Short Pen Needle) tizanidine 4 mg tablet 1 tab PO BEDTIME PRN 02/04/21 02/04/21 torsemide 20 mg tablet 3 tab PO BID 02/04/21 02/04/21 Previous Rx's Medication Instructions Recorded carvedilol 12.5 mg tablet 12.5 mg PO BID 90 Days #180 tab 07/28/20 amoxicillin 875 mg-potassium 875 mg PO Q12H 3 Days #6 tab 02/12/21 clavulanate 125 mg tablet hydralazine 50 mg tablet 50 mg PO BID 30 Days #60 tab 02/12/21 isosorbide mononitrate 30 mg 30 mg PO DAILY 30 Days #30 tab 02/12/21 tablet,extended release 24 hr nystatin 100,000 unit/mL oral 400,000 unit PO QID 5 Days #80 ml 02/12/21 suspension DS: Summary Hospital Course Hospital Course: Admission note HPI 45-year-old male with a past medical history of hypertension, hyperlipidemia, diabetes, coronary artery status post CABG x2, CHF with EF of 30-35%; recent admission to the [facility] for pneumonia/lobular portal effusion status post chest tube placement; presented to the hospital today with a chief complaint of increased shortness of breath and cough.? Also complains of having fevers, headaches since last Tuesday.? Denies any blurry visions.? Mentions that he took Tylenol with no significant improvement in his fevers.? Also had noticed increased generalized weakness and shortness of breath.? Complains of cough.? Patient complained of multiple episodes of vomiting; denies any blood in the vomitus.? Denies any abdominal discomfort. Denies any chest pain or palpitations.? Patient denies any neck stiffness. Review of all other systems is negative except mentioned above ER course:? Per ER team patient noted to have pneumonia with small effusion on the CT scan; CT abdomen showed no acute findings.? Patient was given IV vancomycin and Zosyn.? Patient also received 1 L of IV fluids.? Noted to have MAURI on CKD.? Admitted to the hospital for further management. Hospital course The patient was admitted to the hospital for acute hypoxic respiratory failure as a result of severe sepsis secondary to pneumonia with MDR risk factors as a CT scan of the abdomen resembled. Started on IV antibiotics of Zosyn with good response over the course of hospital stay as he finished total of 7 days to continue with Augmentin for total of 10 days of antibiotics. Blood cultures remain negative during the stay. Noticed to have acute kidney injury on top of CKD. Evaluated by Nephrology team as autoimmune workup was done showing low C3. Decision was made against doing kidney biopsy. To follow-up with Nephrology as outpatient. Immunology studies showed significantly elevated IgG level with low IgA and IgM consistent with IgG kappa monoclonal gammopathy. Evaluated by jewel oliving machine operator Dr. Villasenor as a skeletal survey did not show any evidence of bone problem. 24 hour urine collection was done during the hospital stay with goal to check for immunofixation. Patient to be discharged home to follow-up with Dr. Villasenor in the clinic. Treated with IV Lasix for CHF exacerbation as he was followed by Cardiology team. To be discharged home on torsemide. Received 1 unit transfusion of blood for low hemoglobin secondary to anemia of chronic disease. Time Spent with Patient Time attestation: Total time spent providing and/or coordinating discharge services: Discharge coordination time: Greater than 30 minutes Quality: Stroke Does the patient have a stroke diagnosis?: No Physical Exam Vital Signs: Vital Signs: Last Vital Signs Temp 98.8 F 02/12/21 11:43 Pulse 84 02/12/21 11:43 Resp 19 02/12/21 11:43 BP 114/66 02/12/21 11:43 Pulse Ox 96 02/12/21 11:43 Body Mass Index 30.4 Const: Other: Constitutional : Alert, oriented, not in distress Neck : Normal inspection, Supple Cardiovascular : RRR, S1 S2, no lower extremity edema Respiratory : Good bilateral air entry, no crackles, wheezes or rhonchi Gastrointestinal: soft, lax, Normal bowel sounds, Non tender Skin : Warm, Dry Neurological : Alert & oriented x3, No focal deficit the DS: Data Data Completed and Pending Labs on day of discharge: Laboratory Results - last 24 hr 02/11/21 02/11/21 02/11/21 16:29 19:14 20:38 Sodium Potassium Chloride Carbon Dioxide Anion Gap BUN Creatinine Estim Creat Clear Calc Estimated GFR POC Glucose 217 H 217 H Random Glucose Calcium Lactate Dehydrogenase Troponin I High Sens 11.1 B-Natriuretic Peptide 02/12/21 02/12/21 02/12/21 06:00 06:00 06:00 Sodium 143 Potassium 3.8 Chloride 101 Carbon Dioxide 29 Anion Gap 17 BUN 24 H Creatinine 1.79 H Estim Creat Clear Calc 54.5 Estimated GFR 41 POC Glucose Random Glucose 71 D Calcium 8.3 L Lactate Dehydrogenase 312 H Troponin I High Sens B-Natriuretic Peptide 761 H 02/12/21 02/12/21 07:07 11:44 Sodium Potassium Chloride Carbon Dioxide Anion Gap BUN Creatinine Estim Creat Clear Calc Estimated GFR POC Glucose 79 163 H Random Glucose Calcium Lactate Dehydrogenase Troponin I High Sens B-Natriuretic Peptide Discharge Plan Discharge Patient Disposition: Home, Self-Care Discharge Diagnosis: Severe sepsis from pneumonia Monoclonal gammopathy, Acute kidney injury Referrals: [facility] [Outside] - 1 Week Guido Burch MD [Primary Care Provider] - 1 Week Discharge Medications: New nystatin 100,000 unit/mL Suspension 400,000 unit PO QID 5 Days Qty: 80 RF: 0 isosorbide mononitrate 30 mg Tablet Extended Release 24 Hr 30 mg PO DAILY 30 Days Qty: 30 RF: 0 hydralazine 50 mg Tablet 50 mg PO BID 30 Days Qty: 60 RF: 0 amoxicillin-pot clavulanate 875-125 mg Tablet 875 mg PO Q12H 3 Days Qty: 6 RF: 0 Continued carvedilol 12.5 mg tablet 12.5 mg PO BID 90 Days Qty: 180 RF: 1 fluticasone propion-salmeterol 250-50 mcg/dose Blister With Device 1 inh INHALATION Q12H RF: 0 torsemide 20 mg tablet 3 tab PO BID RF: 0 gabapentin 300 mg Capsule 600 mg PO BEDTIME RF: 0 azelastine 137 mcg (0.1 %) Aerosol,Randolph 2 spray INTRANASAL BID RF: 0 insulin lispro [Humalog KwikPen Insulin] 100 unit/mL Insulin Pen 10 - 15 unit SUBCUT TID RF: 0 (DME) pen needle, diabetic [BD Ultra-Fine Short Pen Needle] 31 gauge x 5/16 needle subcut QID RF: 0 fenofibrate nanocrystallized 145 mg tablet 1 tab PO DAILY RF: 0 tizanidine 4 mg tablet 1 tab PO BEDTIME PRN (Reason: muscle spasm) RF: 0 aspirin 81 mg tablet,delayed release (DR/EC) 81 mg PO DAILY RF: 0 clopidogrel 75 mg tablet 75 mg PO DAILY RF: 0 atorvastatin 80 mg tablet 80 mg PO BEDTIME RF: 0 albuterol sulfate 90 mcg/actuation HFA aerosol inhaler 2 puff inhalation Q4H PRN (Reason: Cough) RF: 0 docusate sodium 100 mg capsule 100 mg PO BID RF: 0 pantoprazole 40 mg tablet,delayed release (DR/EC) 40 mg PO DAILY RF: 0 sertraline 25 mg tablet 100 mg PO DAILY RF: 0 amitriptyline 25 mg tablet 25 mg PO BEDTIME RF: 0 sitagliptin 25 mg tablet 25 mg PO DAILY RF: 0 gabapentin [Neurontin] 300 mg capsule 300 mg PO DAILY RF: 0 Lantus Solostar U-100 Insulin 100 unit/mL (3 mL) insulin pen 36 unit subcut QAM RF: 0 Discharge Orders: Discharge Order (Routine); Ordered 02/12/21 Ordered By: Abran Wright Diet: advance to usual diet Activity on Discharge: As tolerated Stand Alone Forms: Patient Portal Discharge page Care Plan Goals: Read below Health Concerns: Read below Plan of Treatment: You were admitted to the hospital for fevers and chills. Found to evidence of pneumonia which was treated with IV antibiotics with good response over the course of hospital stay. Weaned of the oxygen. Blood work was concerning for blood abnormalities. Test were positive for elevated IgG levels. Evaluated by Dr. Villasenor from Hematology who did the 24 hours urine collection test. To follow-up with her in the office for the result and further workup. Your kidney function was worsened from baseline in you came in. Evaluated by Nephrology team who did kidney biopsy. Results still pending. Assessment: Continue Augmentin and nystatin as prescribed Start hydralazine and isosorbide as prescribed, monitor your blood pressure at home To follow-up with Dr. Ray from Nephrology for chronic kidney disease To follow-up with Dr. Villasenor from Hematology who did the 24 hours urine collection test. To follow-up with her in the office for the result and further workup.
[2021-02-12 15:29] VITALS: BP 140/65; PULSE 80; RESP 15; TEMP 36.6; O2SAT 98
[2021-02-12 16:07] LABS: Glucose, Whole Blood 246 mg/dL (60-115)
[2021-02-13 05:31] LABS: Beta-2 Microglobulin, Serum 6.66 mg/L (< OR = 2.51)
[2021-02-13 14:46] LABS: Kappa, Serum 833 mg/dL (176-443); Kappa/Lambda Ratio, Serum 15.43 (1.29-2.55); Lambda, Serum 54 mg/dL (91-240)
== END 2021-02-12 16:00 | disposition home or self-care (01) | DRG 720 ==
LOC: HO.ED 02-04 01:28 → HO.EDOVER 02-04 03:50 → HO.IMC 02-04 04:55
PROVIDERS: Internal Medicine; Internal Medicine Medical Oncology; Internal Medicine Nephrology; Nurse Practitioner Family; Admitting Provider Hospitalist; Emergency Provider Internal Medicine; PCP Internal Medicine; Visit Provider Student in an Organized Health Care Education/Training Program
DX: A41.9 Sepsis, unspecified organism (principal); J96.01 Acute respiratory failure with hypoxia; I50.23 Acute on chronic systolic (congestive) heart failure; N17.9 Acute kidney failure, unspecified; J18.9 Pneumonia, unspecified organism; E11.22 Type 2 diabetes mellitus with diabetic chronic kidney disease; N18.30 Chronic kidney disease, stage 3 unspecified; R65.20 Severe sepsis without septic shock; E87.1 Hypo-osmolality and hyponatremia; E78.5 Hyperlipidemia, unspecified; K21.9 Gastro-esophageal reflux disease without esophagitis; N18.9 Chronic kidney disease, unspecified; I25.10 Atherosclerotic heart disease of native coronary artery without angina pectoris; I25.5 Ischemic cardiomyopathy; E11.65 Type 2 diabetes mellitus with hyperglycemia; D47.2 Monoclonal gammopathy; D63.1 Anemia in chronic kidney disease; Z95.1 Presence of aortocoronary bypass graft; Z87.01 Personal history of pneumonia (recurrent); Z95.810 Presence of automatic (implantable) cardiac defibrillator; Z79.4 Long term (current) use of insulin; Z79.02 Long term (current) use of antithrombotics/antiplatelets; Z79.51 Long term (current) use of inhaled steroids; Z79.899 Other long term (current) drug therapy
CPT/HCPCS: 36415; 70450; 71045; 71046; 71250; 74176; 77075; 80048; 80076; 82043; 82232; 82728; 82784; 82947; 83540; 83605; 83615; 83690; 83735; 83880; 83883; 83970; 84156; 84300; 84484; 85025; 85027; 86021; 86038; 86039; 86160; 86334; 86335; 86704; 86706; 86803; 86850; 86900; 86901; 86923; 87040; 87340; 87493; 87635; 87640; 87641; 89190; 93005; 94640; 94644; 96361; 96365; 96375; 99285; C1758; J0885; J1170; J1200; J1439; J1940; J2270; J2405; J2543; J3370; P9016

== ENCOUNTER → 2021-03-18 13:35 | Outpatient (BNVA) | payer OTHER, SELFPAY | PROVIDERS: PCP Internal Medicine; Referring Provider Internal Medicine; Visit Provider Nurse Practitioner Family | DX: Z45.02 Encounter for adjustment and management of automatic implantable cardiac defibrillator (principal); I25.10 Atherosclerotic heart disease of native coronary artery without angina pectoris; I25.5 Ischemic cardiomyopathy; I13.0 Hypertensive heart and chronic kidney disease with heart failure and stage 1 through stage 4 chronic kidney disease, or unspecified chronic kidney disease; N18.9 Chronic kidney disease, unspecified; I50.22 Chronic systolic (congestive) heart failure; Z95.1 Presence of aortocoronary bypass graft | CPT/HCPCS: 99212 ==

== ENCOUNTER → 2021-04-02 11:04 | Outpatient (BNV) | payer OTHER, SELFPAY | PROVIDERS: PCP Internal Medicine; Visit Provider Internal Medicine Medical Oncology | DX: C90.00 Multiple myeloma not having achieved remission (principal) | CPT/HCPCS: 99213; 99214 ==

== ENCOUNTER 2021-04-02 12:24 | Outpatient (REF) | payer OTHER, SELFPAY ==
--- NOTE | ~2021-04-02 | XR_ITS ---
EXAMINATION: XR SKELETAL SURVEY CLINICAL INFORMATION: Myeloma. COMPARISON: None TECHNIQUE: Whole body bone survey was performed. FINDINGS: Lateral skull: No lucency seen in the calvarium. Visualized paranasal sinuses and mastoid air cells are unremarkable. Cervical spine lateral view: There are degenerative disc changes C5-C6 disc level with moderate ventral and posterior spondylosis. The rest of the disc heights, vertebral heights and alignment are normal. No visible acute fracture, dislocation or lytic process seen. The prevertebral soft tissues are normal. Thoracic spine: There is maintained thoracic kyphosis. No lytic or sclerotic process seen. The vertebral heights and disc spaces and alignment are normal. Chest: The lungs are expanded and clear. The heart size and pulmonary vascularity are normal. Percutaneous solitary electrode and median sternotomy sutures are noted. No bony abnormality seen. Lumbar spine: Normal lumbar lordosis. No lucencies or sclerosis seen. The disc heights and vertebral heights are normal. Bilateral upper extremities: No visible lucency seen. No sclerosis. No bony abnormality. Lower extremity: The hip joints are symmetrical and normal. There is no lytic or sclerotic process seen in the femur, distal tibia or fibula. The soft tissues are normal. XR/XR bone survey IMPRESSION: Unremarkable whole body bone survey. No lytic or sclerotic process seen.
== END 2021-04-02 12:25 | disposition home or self-care (01) ==
LOC: HO.XRAY 12:24
PROVIDERS: Visit Provider Internal Medicine Medical Oncology
DX: C90.00 Multiple myeloma not having achieved remission (principal)
CPT/HCPCS: 77075

== ENCOUNTER 2021-04-09 13:05 | Day surgery (SDC) | payer OTHER, SELFPAY ==
--- NOTE | 2021-04-08 09:20 | P.CONAN_ITS ---
Documented by User: Yareli Salgado NP 04/08/21 12:50 HPI - Anesthesia Eval Consult details Narrative: 45yo M for Bone Marrow Biopsy [facility] admit 02/2021 for acute CHF. Seen by cardiology in office 03/2021 for f/u and stable. Plavix/ASA for CAD PMFSH Active Problems Active Problems: All Active Problems (Updated 04/02/21 @ 11:49 by Conrado Villasenor MD) Multiple myeloma (Acute) CKD (chronic kidney disease) (Acute) Chronic systolic CHF (congestive heart failure) (Acute) PNA (pneumonia) (Acute) Diabetes mellitus (Acute) HLD (hyperlipidemia) (Acute) Past Medical History Medical History CAD (coronary artery disease) CKD (chronic kidney disease) Diabetes mellitus HLD (hyperlipidemia) HTN (hypertension) ICD (implantable cardioverter-defibrillator) in place Ischemic cardiomyopathy Monoclonal gammopathy Family History Family History Father No problems noted. Mother No problems noted. Surgical History Surgical History Hx of cardiac cath (~2017) S/P CABG x 2 (~02/2019) Social History Social History Household Members: Spouse Housing: House Do you presently have visiting nurse or other home services: No Alcohol intake: never Patient Tobacco Use Status: Never used Tobacco Use of substances other than those prescribed or required for medical reasons: Yes Substance Use Type: Marijuana Substance Use Frequency: Daily Are you DNR?: No Advance Directives: No Advance Directives Information Provided: Yes service: No Current occupational status: unemployed Meds Allergies Allergy/AdvReac Type Severity Reaction Status Date / Time egg [EGG] Allergy Severe NAUSEA, Verified 10/24/20 10:40 ITCHY THROAT meperidine [From DEMEROL] Allergy Unknown AGITATION Verified 10/24/20 10:40 Home Medications Medication Instructions Recorded Confirmed Last Taken Type albuterol sulfate 90 mcg/actuation 2 puff INHALATION Q4H PRN 04/25/20 04/02/21 Unknown History aerosol inhaler amitriptyline 25 mg tablet 25 mg PO BEDTIME 04/25/20 04/02/21 Unknown History aspirin 81 mg tablet,delayed 81 mg PO DAILY 04/25/20 04/02/21 04/04/21 History release atorvastatin 80 mg tablet 80 mg PO BEDTIME 04/25/20 04/02/21 Unknown History clopidogrel 75 mg tablet 75 mg PO DAILY 04/25/20 04/02/21 04/04/21 History docusate sodium 100 mg capsule 100 mg PO BID 04/25/20 04/02/21 04/09/21 History gabapentin 300 mg capsule 300 mg PO DAILY 04/25/20 04/02/21 04/09/21 History (Neurontin) insulin glargine 100 unit/mL (3 36 unit SUBCUT QAM ml 04/25/20 04/02/21 Unknown History mL) subcutaneous pen (Lantus Solostar U-100 Insulin) pantoprazole 40 mg tablet,delayed 40 mg PO DAILY 04/25/20 04/02/21 04/09/21 H istory release sertraline 25 mg tablet 100 mg PO DAILY 04/25/20 04/02/21 04/09/21 History azelastine 137 mcg (0.1 %) nasal 2 spray INTRANASAL BID 02/04/21 04/02/21 Unknown History spray aerosol fenofibrate nanocrystallized 145 1 tab PO DAILY 02/04/21 04/02/21 04/09/21 History mg tablet fluticasone 250 mcg-salmeterol 50 1 inh INHALATION Q12H 02/04/21 04/02/21 Unknown History mcg/dose blistr powdr for inhalation gabapentin 300 mg capsule 600 mg PO BEDTIME 02/04/21 04/02/21 Unknown History insulin lispro 100 unit/mL 10 - 15 unit SUBCUT TID 02/04/21 04/02/21 Unknown History subcutaneous pen (Humalog KwikPen (U-100) Insulin) pen needle, diabetic 31 gauge x 02/04/21 04/02/21 Unknown History 5/16 (BD Ultra-Fine Short Pen Needle) tizanidine 4 mg tablet 1 tab PO BEDTIME PRN 02/04/21 04/02/21 Unknown History hydralazine 50 mg tablet 50 mg PO BID tab 03/18/21 04/02/21 04/09/21 History sitagliptin 25 mg tablet 25 mg PO DAILY 03/18/21 04/02/21 04/09/21 History Exam Exam Date and Time: April 08, [id number] Pertinent Lab Results Pertinent Lab Results: Laboratory Tests 04/02/21 04/02/21 12:10 12:10 WBC 12.3 H Hgb 11.2 L D Hct 33.8 L D Plt Count 322 Sodium 136 Potassium 4.5 Chloride 99 Carbon Dioxide 25 BUN 38 H D Creatinine 3.04 H Narrative Narrative: Per cardiology OV 03/2021: hx CAD with RCA stents 2017 and then 2 vessel CABG 02/2019.? Echocardiogram done at [facility] on 01/14/2021 shows EF 30- 35%, grade 3 diastolic dysfunction no significant valve abnormalities, probable basal to mid lateral/inferior wall hypokinesis to akinesis.? Nuclear stress test done at [facility] on 01/09/2021 shows fixed lateral and inferior lateral perfusion defect minimal reversibility in the anterior most portion of the lateral wall defect consistent with scar and minimal associated ischemia. ? ICD Interr 03/2021 [employer] subcutaneous ICD interrogation done today by me showing no treated episodes, no untreated episodes, AF 0%, battery 85%, electrode impedance status okay EKG 02/2021 Vent. Rate : 083 BPM ? ? Atrial Rate : 083 BPM ?? P-R Int : 146 ms? QRS Dur : 082 ms ? ? QT Int : 426 ms ? ? ? P-R-T Axes : 049 009 102 degrees ?? QTc Int : 500 ms ? Normal sinus rhythm Inferior infarct , age undetermined Prolonged QT Abnormal ECG No previous ECGs available Assessment and Plan Assessment Anesthesia Assessment: Chart Reviewed Documented by User: Pierre Dean MD 04/09/21 14:28 [facility] Past Medical History Medical History CAD (coronary artery disease) CKD (chronic kidney disease) Diabetes mellitus HLD (hyperlipidemia) HTN (hypertension) ICD (implantable cardioverter-defibrillator) in place Ischemic cardiomyopathy Monoclonal gammopathy Family History Family History Father No problems noted. Mother No problems noted. Family history of problems with anesthesia: No Surgical History Surgical History Hx of cardiac cath (~2017) S/P CABG x 2 (~02/2019) History of Problems with Anesthesia: No Social History Social History Household Members: Spouse Housing: House Do you presently have visiting nurse or other home services: No Alcohol intake: never Patient Tobacco Use Status: Never used Tobacco Use of substances other than those prescribed or required for medical reasons: Yes Substance Use Type: Marijuana Substance Use Frequency: Daily Are you DNR?: No Advance Directives: No Advance Directives Information Provided: Yes service: No Current occupational status: unemployed Meds Allergies Allergy/AdvReac Type Severity Reaction Status Date / Time egg [EGG] Allergy Severe NAUSEA, Verified 10/24/20 10:40 ITCHY THROAT meperidine [From DEMEROL] Allergy Unknown AGITATION Verified 10/24/20 10:40 Home Medications Medication Instructions Recorded Confirmed Last Taken Type albuterol sulfate 90 mcg/actuation 2 puff INHALATION Q4H PRN 04/25/20 04/02/21 Unknown History aerosol inhaler amitriptyline 25 mg tablet 25 mg PO BEDTIME 04/25/20 04/02/21 Unknown History aspirin 81 mg tablet,delayed 81 mg PO DAILY 04/25/20 04/02/21 04/04/21 History release atorvastatin 80 mg tablet 80 mg PO BEDTIME 04/25/20 04/02/21 Unknown History clopidogrel 75 mg tablet 75 mg PO DAILY 04/25/20 04/02/21 04/04/21 History docusate sodium 100 mg capsule 100 mg PO BID 04/25/20 04/02/21 04/09/21 History gabapentin 300 mg capsule 300 mg PO DAILY 04/25/20 04/02/21 04/09/21 History (Neurontin) insulin glargine 100 unit/mL (3 36 unit SUBCUT QAM ml 04/25/20 04/02/21 Unknown History mL) subcutaneous pen (Lantus Solostar U-100 Insulin) pantoprazole 40 mg tablet,delayed 40 mg PO DAILY 04/25/20 04/02/21 04/09/21 History release sertraline 25 mg tablet 100 mg PO DAILY 04/25/20 04/02/21 04/09/21 History azelastine 137 mcg (0.1 %) nasal 2 spray INTRANASAL BID 02/04/21 04/02/21 Unknown History spray aerosol fenofibrate nanocrystallized 145 1 tab PO DAILY 02/04/21 04/02/21 04/09/21 History mg tablet fluticasone 250 mcg-salmeterol 50 1 inh INHALATION Q12H 02/04/21 04/02/21 Unknown History mcg/dose blistr powdr for inhalation gabapentin 300 mg capsule 600 mg PO BEDTIME 02/04/21 04/02/21 Unknown History insulin lispro 100 unit/mL 10 - 15 unit SUBCUT TID 02/04/21 04/02/21 Unknown History subcutaneous pen (Humalog KwikPen (U-100) Insulin) pen needle, diabetic 31 gauge x 02/04/21 04/02/21 Unknown History 5/16 (BD Ultra-Fine Short Pen Needle) tizanidine 4 mg tablet 1 tab PO BEDTIME PRN 02/04/21 04/02/21 Unknown History hydralazine 50 mg tablet 50 mg PO BID tab 03/18/21 04/02/21 04/09/21 History sitagliptin 25 mg tablet 25 mg PO DAILY 03/18/21 04/02/21 04/09/21 History Exam Airway Mallampati Class: III TM Dist: >3cm Neck ROM: Full Loose/Missing/Broken Teeth: No Assessment and Plan Assessment Anesthesia Assessment: Anesthesia Plan Discussed Final Anesthetic Review Family History of Problems with Anesthesia: No History of Problems with Anesthesia: No NPO: Yes ASA Class: IV Final Preanesthetic Review: No Changes in Pt Med Stat, Meds/Allgs Chart Reviewed, Consent Obtained/Reviewed and Anes Risks/Benef Reviewed Patient Risk: High Procedure Risk: Low Anesthetic Plan Anesthetic Plan: MAC: Disposition: Standard PACU
[2021-04-09 13:21] VITALS: BMI 29.4
[2021-04-09] MEDS: 0.9 % Sodium Chloride 1,000 ML 50 ML IVCONT (14:03)
[2021-04-09 14:09] LABS: Glucose, Whole Blood 150 mg/dL (60-115)
--- NOTE | 2021-04-09 14:55 | PM.HEMONCBM ---
Bone Marrow Aspiration - Bone Marrow Aspiration Procedure:: *Service Date: [04/09/21] Bone Marrow aspirate & Biopsy. Pre Op Diagnosis:: Multiple myeloma. Post Op Diagnosis:: Same. Surgeon:: JASPREET Villasenor Anesthesia:: MAC. Consent:: Informed consent obtained from the patient for the procedure. Pros and cons of biopsy explained. The patient was willing to proceed with the procedure under local anesthesia. Procedure in Detail:: *Service Date: 04/09/21. *Procedure: Bone marrow aspirate and biopsy *Pre Op Dx: Multiple myeloma. *Post Op Dx: Same. *Surgeon: Jaspreet Villasenor. The patient was positioned prone. The left posterior superior iliac spine prepped and draped. Patient was anesthetized under MAC. Under aseptic precautions, 5 ml of 1% lidocaine used for local anesthesia. Would marrow aspirate was taken. With the Jamshidi needle, a core biopsy obtained without any complications. Specimens were sent for Early stain, flow cytometry and cytogenetics. Myeloma panel was also sent. The patient tolerated the procedure well. Bandage was applied and patient was positioned on his back for 10 to 15 minutes after the procedure. The patient was advised to call us if he develops any pain or swelling at the surgical site. Follow up in 2 weeks.
[2021-04-09 15:10] VITALS: BP 158/93; PULSE 77; RESP 20; TEMP 36.7; O2SAT 95
[2021-04-09] MEDS: ondansetron HCL 4 MG/2 ML VIAL IVPUSH (15:19)
[2021-04-09 15:25] VITALS: BP 135/84; PULSE 73; RESP 20; O2SAT 96
[2021-04-09 15:25] LABS: Bone Marrow SEE SEPARATE REPORT
[2021-04-09 15:40] VITALS: BP 120/70; PULSE 82; RESP 18; TEMP 36.7; O2SAT 99
[2021-04-09 15:55] VITALS: BP 122/71; PULSE 84; RESP 18; TEMP 36.7; O2SAT 97
[2021-04-09 16:20] LABS: MANUAL DIFF FLAG NO
[2021-04-09 16:23] LABS: Basophils Percent Auto 0.3 % (0-2); Eosinophils Absolute Auto 0.2 X10*3/uL (0.0-0.4); Eosinophils Percent Auto 1.8 % (0-4); Hematocrit 32.2 % (42-52); Hemoglobin 10.6 g/dl (14.0-18.0); Imm Gran Abs Auto 0.03 X10*3/uL (0.00-0.03); Imm Gran Pct Auto 0.3 % (0.0-0.4); Lymphocytes Percent Auto 22.4 % (20-40); Mean Corpuscular HGB Conc 32.9 g/dl (31.0-36.0); Mean Corpuscular Hemoglobin 29.1 pg (27.0-33.0); Mean Corpuscular Volume 88.5 fL (80-98); Mean Platelet Volume 10.2 fL (9.4-12.4); Monocytes Absolute Auto 0.6 X10*3/uL (0.1-1.2); Monocytes Percent Auto 6.8 % (2-11); Neutrophils Percent Auto 68.4 % (45-73); Platelet Count 337 X10*3/uL (160-400); Red Blood Count 3.64 X10*6/uL (4.60-5.80); Red Cell Distribution Width 16.5 % (11.0-16.0); White Blood Count 8.8 X10*3/uL (4.8-10.8)
== END 2021-04-09 16:31 | disposition home or self-care (01) ==
PROVIDERS: PCP Internal Medicine; Visit Provider Internal Medicine Medical Oncology
PROC: (CPT 38221; principal; 2021-04-09 14:30)
DX: C90.00 Multiple myeloma not having achieved remission (principal); E11.22 Type 2 diabetes mellitus with diabetic chronic kidney disease; I12.9 Hypertensive chronic kidney disease with stage 1 through stage 4 chronic kidney disease, or unspecified chronic kidney disease; N18.9 Chronic kidney disease, unspecified; I25.10 Atherosclerotic heart disease of native coronary artery without angina pectoris; Z95.1 Presence of aortocoronary bypass graft; Z95.810 Presence of automatic (implantable) cardiac defibrillator; Z79.4 Long term (current) use of insulin; Z79.82 Long term (current) use of aspirin; Z79.899 Other long term (current) drug therapy; Z88.8 Allergy status to other drugs, medicaments and biological substances; F12.90 Cannabis use, unspecified, uncomplicated
CPT/HCPCS: 38222; 36415; 82947; 85025; 85097; 88184; 88185; 88237; 88264; 88280; 88305; 88307; 88311; 88313; 88342; 88344; 88374; J1642; J2405; J3010

== ENCOUNTER 2021-04-28 12:47 | Outpatient (REF) | payer OTHER, SELFPAY ==
--- NOTE | ~2021-04-28 | PE_ITS ---
EXAMINATION: Fluorine-18 FDG PET/CT Scan CLINICAL INDICATION: Initial treatment management. Multiple myeloma, staging. PROCEDURE: 83 minutes following the intravenous administration of 18.1 mCi of fluorine 18 FDG, images of the whole body were obtained using a combined PET/CT scanner with CT scan based attenuation correction. No oral contrast was administered. No intravenous contrast was administered. Transverse, coronal, sagittal, and volume reconstruction projections were obtained. The patient's blood glucose as determined by a finger stick, was 183 mg/dl immediately prior to injection. Total CT exam dose-length product 1699.89 mGy-cm * These CT images were obtained using dose optimization techniques as appropriate, variously including the following: Automated exposure control * Adjustment of mA and/or kV according to patient size (this includes techniques or standardized protocols for targeted exams where dose is matched to indication/reason for exam; i.e. extremities or head) * Use of iterative reconstruction technique COMPARISON: No previous PET/CT scan is available for comparison. Bone survey dated 04/02/[address] scan of the chest, abdomen, and pelvis, dated 02/03/2021, is available for comparison. FINDINGS: (Slice numbers described in this report are numbered superiorly to inferiorly with slice #1 in the head) NECK AND VISUALIZED HEAD: No foci of abnormal FDG activity are noted. The distribution of FDG activity is physiological. There is no cervical lymphadenopathy. THORAX: There are no foci of abnormal FDG activity present in the chest. There is a 0.4 cm subpleural posterolateral left upper lobe pulmonary nodule, slice 105/267, unchanged from the diagnostic CT scan dated 02/03/2021. There is some atelectasis or scarring posterolaterally in the left lower lobe with some associated pleural-based opacity. This is smaller than on the prior 02/03/2021 study now measuring approximately 4.8 x 2.2 cm in largest dimensions. is measured approximately 6.1 x 2.2 cm. This is mildly FDG avid, and SUVmax 3.1, slice 143/267. A few additional small subcentimeter pulmonary nodules are visualized unchanged in appearance from 02/03/2021 and better visualized on that study. [employer] is a 0.3 cm nodule in the superior segment of the right lower lobe, slice 116/267. These nodules are all too small to be characterized on the FDG PET images. There are no additional foci of abnormal FDG activity in the chest. Trace left-sided pleural fluid is present. There is no right-sided pleural fluid, pericardial fluid, or pneumothorax. Poststernotomy changes are present with no associated abnormal FDG activity. There is no mediastinal, supraclavicular, or axillary lymphadenopathy. In the left lateral chest wall a pacemaker/defibrillator is present and associated leads are visualized. ABDOMEN AND PELVIS: The liver and spleen are unremarkable. The gallbladder has been resected and metallic surgical clips are present in the gallbladder bed. The kidneys, adrenal glands, and pancreas are unremarkable. The pelvic organs are unremarkable. There is no retroperitoneal, mesenteric, pelvic or inguinal lymphadenopathy. MUSCULOSKELETAL: No foci of abnormal FDG activity are present in the osseous structures. There are no suspicious sclerotic or lytic lesions visualized. VASCULAR: Vascular calcifications including coronary are noted. PET/PET CT fusion skull to thigh IMPRESSION: 1. No abnormalities suspicious for metastatic or other malignant lesions are noted. There are no suspicious lytic osseous lesions. 2. Vascular calcifications including coronary.
== END 2021-04-28 12:48 | disposition home or self-care (01) ==
LOC: HO.PET 12:47
PROVIDERS: PCP Internal Medicine; Visit Provider Internal Medicine Medical Oncology
DX: Z13.89 Encounter for screening for other disorder (principal)

== ENCOUNTER 2021-06-25 14:26 | Outpatient (REF) | payer OTHER, SELFPAY ==
--- NOTE | ~2021-06-25 | XR_ITS ---
EXAMINATION: XR KNEE, LEFT CLINICAL INFORMATION: Left knee pain COMPARISON: 11/16/2013 TECHNIQUE: Four views of the left knee. This includes AP upright view. FINDINGS: No fracture or subluxation. Mild medial compartment joint space narrowing with small marginal osteophytes. Compartmental joint spaces are otherwise maintained. No joint effusion. Corticated ossification at the tibial tuberosity likely the sequela of chronic repetitive trauma. XR/XR knee LT 4V IMPRESSION: Mild medial compartment degenerative change.
== END 2021-06-25 14:27 | disposition home or self-care (01) ==
LOC: HO.XRAY 14:26
PROVIDERS: PCP Internal Medicine; Visit Provider Internal Medicine Medical Oncology
DX: M25.562 Pain in left knee (principal)
CPT/HCPCS: 73564

== ENCOUNTER 2021-07-20 12:58 | Outpatient (REF) | payer OTHER, SELFPAY ==
[2021-07-20 15:07] LABS: Anion Gap 14 (12-20); Blood Urea Nitrogen 39 mg/dL (9-16); Calcium 9.5 mg/dL (8.4-10.2); Carbon Dioxide 29 mmol/L (22-29); Chloride 102 mmol/L (96-108); Estimated Glomerular Filt Rate 23; Glucose Random 148 mg/dL (60-115); Potassium 4.8 mmol/L (3.3-5.1); Sodium 140 mmol/L (135-145)
[2021-07-20 15:16] LABS: B Type Natriuretic Peptide 262 pg/mL (<100)
== END 2021-07-20 12:59 | disposition home or self-care (01) ==
LOC: HO.LAB 12:58
PROVIDERS: PCP Internal Medicine; Referring Provider Internal Medicine; Visit Provider Internal Medicine Cardiovascular Disease
DX: I50.22 Chronic systolic (congestive) heart failure (principal); R06.02 Shortness of breath; I25.5 Ischemic cardiomyopathy; I25.10 Atherosclerotic heart disease of native coronary artery without angina pectoris; I13.0 Hypertensive heart and chronic kidney disease with heart failure and stage 1 through stage 4 chronic kidney disease, or unspecified chronic kidney disease; N18.9 Chronic kidney disease, unspecified; E11.9 Type 2 diabetes mellitus without complications; E78.5 Hyperlipidemia, unspecified; F17.210 Nicotine dependence, cigarettes, uncomplicated; Z86.73 Personal history of transient ischemic attack (TIA), and cerebral infarction without residual deficits; Z95.1 Presence of aortocoronary bypass graft; Z95.810 Presence of automatic (implantable) cardiac defibrillator; Z98.890 Other specified postprocedural states; Z88.6 Allergy status to analgesic agent; Z91.012 Allergy to eggs; Z79.82 Long term (current) use of aspirin; Z79.4 Long term (current) use of insulin; Z79.899 Other long term (current) drug therapy
CPT/HCPCS: 36415; 80048; 83880; 99212

== ENCOUNTER 2021-08-17 12:44 | Outpatient (REF) | payer OTHER, SELFPAY | END 2021-08-17 12:45 | disposition home or self-care (01) | LOC: HO.LAB 12:44 | PROVIDERS: PCP Internal Medicine; Visit Provider Internal Medicine Medical Oncology | DX: Z13.89 Encounter for screening for other disorder (principal) | CPT/HCPCS: 36415; 80053; 83883; 85025 ==

== ENCOUNTER 2021-08-28 12:45 | Emergency (ER) | payer OTHER, SELFPAY ==
[2021-08-28] VITALS (7 sets, daily range): BP systolic 105–132; BP diastolic 36–84; PULSE 78–88; RESP 16–18; TEMP 36.7; O2SAT 98–100; BMI 26.7
--- NOTE | ~2021-08-28 | XR_ITS ---
EXAMINATION: XR CHEST CLINICAL INFORMATION: Shortness of breath COMPARISON: Previous chest x-rays most recent February 2021 TECHNIQUE: Frontal view of the chest was obtained. FINDINGS: The cardiac silhouette is enlarged but stable. There is a left chest wall cardioverter/defibrillator that appears unchanged. There are median sternotomy wires. The lungs are clear. There is no pleural effusion or pneumothorax. There are degenerative changes of the spine. XR/XR chest 1V IMPRESSION: Stable enlargement of the cardiac silhouette.
--- NOTE | ~2021-08-28 | CT_ITS ---
EXAMINATION: CT HEAD WITHOUT CONTRAST CLINICAL INFORMATION: Severe headache COMPARISON: Previous head CT February 2021 TECHNIQUE: Contiguous axial imaging was performed from the skull base to vertex without intravenous administration of contrast. This CT examination was performed using dose optimization techniques as appropriate, variously including the following: *Automated exposure control *Adjustment of mA and/or kV according to patient size (this includes techniques or standardized protocols for targeted exams where dose is matched to indication/reason for exam; i.e. extremities or head) *Use of iterative reconstruction technique DLP: 667 mGy-cm FINDINGS: There is no evidence of acute intracranial hemorrhage or territorial infarction. No abnormal mass effect or midline shift is seen. [place] to white matter differentiation is well preserved. No extra-axial fluid collections are identified. The ventricles are normal in size. There is no abnormal attenuation within the brain parenchyma. The osseous structures and soft tissues are normal. There is partial soft tissue opacification of the left inferior mastoid air cells that appears unchanged. Paranasal sinuses, mastoid air cells and middle ears are otherwise clear. CT/CT head/brain wo con IMPRESSION: No acute intracranial pathology.
--- NOTE | 2021-08-28 13:46 | ED.GENADULT ---
HPI - General Adult General Chief complaint: General Medical Stated complaint: headache sob Time Seen by Provider: 08/28/21 13:44 Source: patient Mode of arrival: ambulatory Limitations: no limitations History of Present Illness HPI narrative: This is a 46-year-old male past medical history significant for CAD, CKD, CVA, diabetes, hyperlipidemia, hypertension, ICD, ischemic cardiomyopathy, monoclonal gammopathy multiple myeloma currently receiving chemo presents to the emergency department with complaints of headache and shortness of breath. Patient tells me that yesterday he had a headache that started localize to behind the eyes, radiating to the back of his head that is severe in nature. He tells me that this headache is so severe it makes his eyes water and he is very uncomfortable. He also tells me he sees bright lights in his visual clifford. He tells me he typically gets migraines however this does not feel like his typical migraine. He also reports intermittent shortness of breath of worse with ambulation better at rest. He tells me at this time he is feeling a little bit better in terms of shortness of breath however his headache is a 10/10. He denies neck pain. He denies fevers, chills, nausea, vomiting, chest pain, abdominal pain, weakness, photophobia. Onset (ago): day(s) (2) Location: head Radiation: non-radiation Severity: severe Severity scale (1-10): 10 Quality: aching and constant Pain Consistency: constant Relieving factors: none Exacerbating factors: none Associated symptoms: denies other symptoms Treatments prior to arrival: none Related Data Home Medications Medication Instructions Recorded Confirmed albuterol sulfate 90 mcg/actuation 2 puff INHALATION Q4H PRN 04/25/20 08/18/21 aerosol inhaler amitriptyline 25 mg tablet 25 mg PO BEDTIME 04/25/20 08/18/21 atorvastatin 80 mg tablet 80 mg PO BEDTIME 04/25/20 08/18/21 clopidogrel 75 mg tablet 75 mg PO DAILY 04/25/20 08/18/21 docusate sodium 100 mg capsule 100 mg PO BID 04/25/20 08/18/21 gabapentin 300 mg capsule 300 mg PO DAILY 04/25/20 08/18/21 (Neurontin) insulin glargine 100 unit/mL (3 36 unit SUBCUT QAM ml 04/25/20 08/18/21 mL) subcutaneous pen (Lantus Solostar U-100 Insulin) pantoprazole 40 mg tablet,delayed 40 mg PO DAILY 04/25/20 08/18/21 release sertraline 25 mg tablet 25 mg PO DAILY 04/25/20 08/18/21 azelastine 137 mcg (0.1 %) nasal 2 spray INTRANASAL BID 02/04/21 08/18/21 spray aerosol fenofibrate nanocrystallized 145 1 tab PO DAILY 02/04/21 08/18/21 mg tablet fluticasone 250 mcg-salmeterol 50 1 inh INHALATION Q12H 02/04/21 08/18/21 mcg/dose blistr powdr for inhalation gabapentin 300 mg capsule 600 mg PO BEDTIME 02/04/21 08/18/21 insulin lispro 100 unit/mL 10 - 15 unit SUBCUT TID 02/04/21 08/18/21 subcutaneous pen (Humalog KwikPen (U-100) Insulin) pen needle, diabetic 31 gauge x 02/04/21 06/17/21/16 (BD Ultra-Fine Short Pen Needle) tizanidine 4 mg tablet 1 tab PO BEDTIME PRN 02/04/21 08/18/21 sitagliptin 25 mg tablet (Januvia) 25 mg PO DAILY 03/18/21 08/18/21 sertraline 100 mg tablet 100 tab PO DAILY 05/25/21 08/18/21 Previous Rx's Medication Instructions Recorded carvedilol 12.5 mg tablet 12.5 mg PO BID 90 Days #180 tab 07/28/20 torsemide 20 mg tablet 60 mg PO BID 30 Days #180 tab 03/18/21 aspirin 325 mg tablet 325 mg PO DAILY #30 tab 05/25/21 ondansetron HCl 4 mg tablet 8 mg PO Q8H PRN #60 tab 05/25/21 (Zofran) sulfamethoxazole 800 1 tab PO DAILY #60 tab 05/25/21 mg-trimethoprim 160 mg tablet (Bactrim DS) valacyclovir 500 mg tablet 500 mg PO DAILY #60 tab 05/25/21 (Valtrex) dexamethasone 4 mg tablet 20 mg PO DAILY #100 tab 07/07/21 (Decadron) Magic Mouthwash 10 ml PO QID #240 ml 08/18/21 Diphen/Lido/Antacid 1:1:1 240 mL suspension fluconazole 100 mg tablet 100 mg PO DAILY #7 tab 08/18/21 (Diflucan) lenalidomide 15 mg capsule 15 mg PO DAILY #14 cap 08/25/21 (Revlimid) Allergies Allergy/AdvReac Type Severity Reaction Status Date / Time egg [EGG] Allergy Severe NAUSEA, Verified 08/28/21 14:02 ITCHY THROAT meperidine [From DEMEROL] Allergy Unknown AGITATION Verified 08/28/21 14:02 Review of Systems Review of Systems: Constitutional : No Weight loss, No Fever, No Chills, No Fatigue, No Malaise ENT/Mouth : No sore throat, No Rhinorrhea Eyes: No Eye Pain, No Swelling, No Redness Cardiovascular : No Chest Pain, + SOB, + Dyspnea on Exertion, No Orthopnea, No Edema, No Palpitations Respiratory : No Cough, No Sputum, No Wheezing Gastrointestinal : No Nausea, No Vomiting, No Diarrhea, No Constipation, No abdominal Pain, No Hematochezia, No Melena Genitourinary : No Dysuria, No Urinary Frequency, No Hematuria, Musculoskeletal : No joint pain, No Myalgias, No Joint Swelling Skin : No Skin Lesions, No rash Neuro : No Weakness, No Numbness, No Dizziness, + Headache Psych : No Anxiety/Panic, No Depression All other systems reviewed and are negative Yes all other systems are reviewed and are negative [facility] Past Medical History Attestation statement: The following information was validated with the patient. Source: old records reviewed and nursing notes reviewed Medical History (Updated 08/28/21 @ 20:47 by LALITHA Fernandez) CAD (coronary artery disease) CKD (chronic kidney disease) CVA (cerebral vascular accident) Diabetes mellitus HLD (hyperlipidemia) HTN (hypertension) ICD (implantable cardioverter-defibrillator) in place Ischemic cardiomyopathy Monoclonal gammopathy Surgical History Hx of cardiac cath (~2017) S/P CABG x 2 (~02/2019) Family History Family History Father Diabetes mellitus Esophageal cancer Mother Diabetes mellitus Brother Diabetes mellitus Sister Diabetes mellitus Social History Social History Household Members: Spouse Housing: House Do you presently have visiting nurse or other home services: No Alcohol intake: never Patient Tobacco Use Status: Current everyday Tobacco user Smoking Start Date: 03/23/21 (Pt resumed smoking 2 months ago after quitting for a year) Tobacco use type: Cigarette Substance Use Type: Marijuana Advance Directives: Yes Advance Directives Information Provided: Yes Advance Directives on File: No service: No Current occupational status: unemployed Physical Exam ED Vital Signs: Vital Signs - 24 hr 08/28/21 12:56 08/28/21 14:03 08/28/21 16:55 Temperature 98.0 F Pulse Rate 87 78 80 Respiratory Rate 18 Blood Pressure 105/36 L 125/77 Pulse Oximetry 99 99 98 08/28/21 18:28 08/28/21 19:34 08/28/21 21:19 Temperature Pulse Rate 80 80 85 Respiratory Rate 16 16 Blood Pressure 114/69 127/84 132/80 Pulse Oximetry 98 100 100 BMI result Body Mass Index 26.7 Patient's blood pressure is noted to be soft. He will be hydrated. All other vital signs stable Appearance: Alert.? Oriented X3.? No acute distress.? Patient appears to be uncomfortable holding his head. In a dark room Head: Normocephalic, atraumatic, no step-offs or deformities Eyes: Pupils equal, round and reactive to light.? ENT: Pharynx normal.? Neck: Normal inspection.? Neck supple.? CVS: Normal heart rate and rhythm.? Pulses normal.? Respiratory: No respiratory distress.? Breath sounds normal.? Abdomen: Soft and nontender.? Skin: Skin warm and dry.? Normal skin color.? Normal skin turgor.? Extremities: No lower extremity edema.? No calf ttp. 5/5 strength to bilateral upper and lower extremities Back: No midline tenderness, no C-spine tenderness, full range of motion, no CVA tenderness bilaterally Neuro: Oriented X 3.? No motor deficit.? No sensory deficit. CN 2-12 intact. Normal finger to nose heel to alvarenga. Normal tandem gait. Course Reevaluation(s) Reevaluation #1: Patient's CBC appears to be at baseline. Patient's sodium is noted to be on the lower end. Potassium 5.2 was given Lokelma. BUN and creatinine in chronically elevated. Point of care slowly improving now 320. Repeat cmp ordered Time: 17:46 Reevaluation #2: Patient's blood glucose improving, he checks his sugar and has insulin at home. Patient now tells me that he always feels this way after chemo. He is feeling slightly better. CT of head with no acute findings. Chest x-ray normal. Time: 19:36 Reevaluation #3: Appears send Ativan were ordered as patient still reports severe headache. Patient will be signed out to Matilda YBARRA. Time: 21:41 Medical Decision Making MDM Narrative Medical decision making narrative: 1350 46 yo m pmhx CAD, CKD, CVA, DM, HLD, HTN, ICD, ischemic cardiomyopathy, monoclonal gammopathy multiple myeloma currently on chemo followed by presenting with headache, scotomas and shortness of breath X2 days. PE benign. Plan- labs, cxr, head ct. Medical Records Medical records reviewed: Yes I reviewed the patient's medical records. Lab Data Lab results reviewed: Yes I reviewed the patient's lab results. Result diagrams: 08/28/21 14:12 08/28/21 17:59 Labs: Lab Results 08/28/21 08/28/21 08/28/21 Range/Units 14:12 14:12 14:12 WBC 7.7 (4.8-10.8) X10*3/uL RBC 2.65 L (4.60-5.80) X10*6/uL Hgb 8.5 L (14.0-18.0) g/dl Hct 25.9 L (42.0-52.0) % MCV 97.7 (80.0-98.0) fL MCH 32.1 (27.0-33.0) pg MCHC 32.8 (31.0-36.0) g/dl RDW 15.9 (11.0-16.0) % Plt Count 193 D (160-400) X10*3/uL MPV 11.1 (9.4-12.4) fL Immature Gran % (Auto) 0.9 H (0.0-0.4) % Neut % (Auto) 70.4 (45-73) % Lymph % (Auto) 13.4 L (20-40) % [place] % (Auto) 10.7 (2-11) % Eos % (Auto) 4.6 H (0-4) % Baso % (Auto) 0.0 (0-2) % Lymph # (Auto) 1.0 L (1.2-4.9) X10*3/uL [place] # (Auto) 0.8 (0.1-1.2) X10*3/uL Eos # (Auto) 0.4 (0.0-0.4) X10*3/uL Baso # (Auto) 0.0 (0.0-0.2) X10*3/uL Abs Immat Gran (auto) 0.07 H (0.00-0.03) X10*3/uL Absolute Neuts (auto) 5.4 (2.0-8.3) x10*3/uL Absolute Nucleated RBC 0.000 (0.0-0.012) X10*3/uL Nucleated RBC % (auto) 0.0 (0.0-0.2) /100WBC VBG pH (7.32-7.43) VBG pCO2 mmHg VBG pO2 mmHg VBG HCO3 (22-26) mmol/L VBG O2 Saturation % VBG Base Excess mmol/L Sodium 133 L (135-145) mmol/L Potassium 5.2 H (3.3-5.1) mmol/L Chloride 95 L (96-108) mmol/L Carbon Dioxide 27 (22-29) mmol/L Anion Gap 16 (12-20) BUN 53 H (9-16) mg/dL Creatinine 3.44 H (0.5-1.4) mg/dL Estim Creat Clear Calc 24.8 Estimated GFR 19 POC Glucose (60-115) mg/dL Random Glucose 515 H* (60-115) mg/dL Calcium 9.3 (8.4-10.2) mg/dL Magnesium 2.1 (1.6-2.6) mg/dL Total Bilirubin 0.4 (0.0-1.0) mg/dL AST 23 (5-37) U/L ALT 24 (0-40) U/L Alkaline Phosphatase 72 (39-117) U/L Total Protein 6.9 (6.5-8.0) g/dL Albumin 4.3 (3.5-5.0) g/dL Urine Color Urine Appearance Urine pH (5.0-8.0) Ur Specific [place] (1.005-1.025) Urine Protein (NEG-TRACE) MG/DL Urine Glucose (UA) (NEG) MG/DL Urine Ketones (NEG) MG/DL Urine Blood (NEG) Urine Nitrite (NEG) Ur Leukocyte Esterase (NEG) Urine RBC (0) /HPF Urine WBC (0-4) /HPF Ur Squamous Epith Cells /LPF Amorphous Sediment /LPF Urine Bacteria /LPF Acetone, Qual (Negative) COVID-19 (KATE) Invalid (Negative) COVID-19 Clin Com See Note 08/28/21 08/28/21 08/28/21 Range/Units 15:09 15:09 15:11 WBC (4.8-10.8) X10*3/uL RBC (4.60-5.80) X10*6/uL Hgb (14.0-18.0) g/dl Hct (42.0-52.0) % MCV (80.0-98.0) fL MCH (27.0-33.0) pg MCHC (31.0-36.0) g/dl RDW (11.0-16.0) % Plt Count (160-400) X10*3/uL MPV (9.4-12.4) fL Immature Gran % (Auto) (0.0-0.4) % Neut % (Auto) (45-73) % Lymph % (Auto) (20-40) % [place] % (Auto) (2-11) % Eos % (Auto) (0-4) % Baso % (Auto) (0-2) % Lymph # (Auto) (1.2-4.9) X10*3/uL [place] # (Auto) (0.1-1.2) X10*3/uL Eos # (Auto) (0.0-0.4) X10*3/uL Baso # (Auto) (0.0-0.2) X10*3/uL Abs Immat Gran (auto) (0.00-0.03) X10*3/uL Absolute Neuts (auto) (2.0-8.3) x10*3/uL Absolute Nucleated RBC (0.0-0.012) X10*3/uL Nucleated RBC % (auto) (0.0-0.2) /100WBC VBG pH 7.37 (7.32-7.43) VBG pCO2 51 mmHg VBG pO2 46 mmHg VBG HCO3 30 H (22-26) mmol/L VBG O2 Saturation 64.0 % VBG Base Excess 4.4 mmol/L Sodium (135-145) mmol/L Potassium (3.3-5.1) mmol/L Chloride (96-108) mmol/L Carbon Dioxide (22-29) mmol/L Anion Gap (12-20) BUN (9-16) mg/dL Creatinine (0.5-1.4) mg/dL Estim Creat Clear Calc Estimated GFR POC Glucose (60-115) mg/dL Random Glucose (60-115) mg/dL Calcium (8.4-10.2) mg/dL Magnesium (1.6-2.6) mg/dL Total Bilirubin (0.0-1.0) mg/dL AST (5-37) U/L ALT (0-40) U/L Alkaline Phosphatase (39-117) U/L Total Protein (6.5-8.0) g/dL Albumin (3.5-5.0) g/dL Urine Color Urine Appearance Urine pH (5.0-8.0) Ur Specific [place] (1.005-1.025) Urine Protein (NEG-TRACE) MG/DL Urine Glucose (UA) (NEG) MG/DL Urine Ketones (NEG) MG/DL Urine Blood (NEG) Urine Nitrite (NEG) Ur Leukocyte Esterase (NEG) Urine RBC (0) /HPF Urine WBC (0-4) /HPF Ur Squamous Epith Cells /LPF Amorphous Sediment /LPF Urine Bacteria /LPF Acetone, Qual Negative (Negative) COVID-19 (KATE) Negative (Negative) COVID-19 Clin Com See Note 08/28/21 08/28/21 08/28/21 Range/Units 15:49 16:43 17:59 WBC (4.8-10.8) X10*3/uL RBC (4.60-5.80) X10*6/uL Hgb (14.0-18.0) g/dl Hct (42.0-52.0) % MCV (80.0-98.0) fL MCH (27.0-33.0) pg MCHC (31.0-36.0) g/dl RDW (11.0-16.0) % Plt Count (160-400) X10*3/uL MPV (9.4-12.4) fL Immature Gran % (Auto) (0.0-0.4) % Neut % (Auto) (45-73) % Lymph % (Auto) (20-40) % [place] % (Auto) (2-11) % Eos % (Auto) (0-4) % Baso % (Auto) (0-2) % Lymph # (Auto) (1.2-4.9) X10*3/uL [place] # (Auto) (0.1-1.2) X10*3/uL Eos # (Auto) (0.0-0.4) X10*3/uL Baso # (Auto) (0.0-0.2) X10*3/uL Abs Immat Gran (auto) (0.00-0.03) X10*3/uL Absolute Neuts (auto) (2.0-8.3) x10*3/uL Absolute Nucleated RBC (0.0-0.012) X10*3/uL Nucleated RBC % (auto) (0.0-0.2) /100WBC VBG pH (7.32-7.43) VBG pCO2 mmHg VBG pO2 mmHg VBG HCO3 (22-26) mmol/L VBG O2 Saturation % VBG Base Excess mmol/L Sodium 140 (135-145) mmol/L Potassium 4.3 (3.3-5.1) mmol/L Chloride 99 (96-108) mmol/L Carbon Dioxide 30 H (22-29) mmol/L Anion Gap 15 (12-20) BUN 47 H (9-16) mg/dL Creatinine 3.01 H (0.5-1.4) mg/dL Estim Creat Clear Calc 28.3 Estimated GFR 22 POC Glucose 320 H (60-115) mg/dL Random Glucose 266 H D (60-115) mg/dL Calcium 9.2 (8.4-10.2) mg/dL Magnesium (1.6-2.6) mg/dL Total Bilirubin 0.4 (0.0-1.0) mg/dL AST 27 (5-37) U/L ALT 25 (0-40) U/L Alkaline Phosphatase 70 (39-117) U/L Total Protein 6.7 (6.5-8.0) g/dL Albumin 4.2 (3.5-5.0) g/dL Urine Color YELLOW Urine Appearance CLEAR Urine pH 5.5 (5.0-8.0) Ur Specific [place] 1.010 (1.005-1.025) Urine Protein NEG (NEG-TRACE) MG/DL Urine Glucose (UA) >=1000 H (NEG) MG/DL Urine Ketones NEG (NEG) MG/DL Urine Blood NEG (NEG) Urine Nitrite NEG (NEG) Ur Leukocyte Esterase NEG (NEG) Urine RBC 0 (0) /HPF Urine WBC 0 (0-4) /HPF Ur Squamous Epith Cells TRACE /LPF Amorphous Sediment TRACE /LPF Urine Bacteria NONE /LPF Acetone, Qual (Negative) COVID-19 (KATE) (Negative) COVID-19 Clin Com 08/28/21 Range/Units 19:33 WBC (4.8-10.8) X10*3/uL RBC (4.60-5.80) X10*6/uL Hgb (14.0-18.0) g/dl Hct (42.0-52.0) % MCV (80.0-98.0) fL MCH (27.0-33.0) pg MCHC (31.0-36.0) g/dl RDW (11.0-16.0) % Plt Count (160-400) X10*3/uL MPV (9.4-12.4) fL Immature Gran % (Auto) (0.0-0.4) % Neut % (Auto) (45-73) % Lymph % (Auto) (20-40) % [place] % (Auto) (2-11) % Eos % (Auto) (0-4) % Baso % (Auto) (0-2) % Lymph # (Auto) (1.2-4.9) X10*3/uL [place] # (Auto) (0.1-1.2) X10*3/uL Eos # (Auto) (0.0-0.4) X10*3/uL Baso # (Auto) (0.0-0.2) X10*3/uL Abs Immat Gran (auto) (0.00-0.03) X10*3/uL Absolute Neuts (auto) (2.0-8.3) x10*3/uL Absolute Nucleated RBC (0.0-0.012) X10*3/uL Nucleated RBC % (auto) (0.0-0.2) /100WBC VBG pH (7.32-7.43) VBG pCO2 mmHg VBG pO2 mmHg VBG HCO3 (22-26) mmol/L VBG O2 Saturation % VBG Base Excess mmol/L Sodium (135-145) mmol/L Potassium (3.3-5.1) mmol/L Chloride (96-108) mmol/L Carbon Dioxide (22-29) mmol/L Anion Gap (12-20) BUN (9-16) mg/dL Creatinine (0.5-1.4) mg/dL Estim Creat Clear Calc Estimated GFR POC Glucose 229 H (60-115) mg/dL Random Glucose (60-115) mg/dL Calcium (8.4-10.2) mg/dL Magnesium (1.6-2.6) mg/dL Total Bilirubin (0.0-1.0) mg/dL AST (5-37) U/L ALT (0-40) U/L Alkaline Phosphatase (39-117) U/L Total Protein (6.5-8.0) g/dL Albumin (3.5-5.0) g/dL Urine Color Urine Appearance Urine pH (5.0-8.0) Ur Specific [place] (1.005-1.025) Urine Protein (NEG-TRACE) MG/DL Urine Glucose (UA) (NEG) MG/DL Urine Ketones (NEG) MG/DL Urine Blood (NEG) Urine Nitrite (NEG) Ur Leukocyte Esterase (NEG) Urine RBC (0) /HPF Urine WBC (0-4) /HPF Ur Squamous Epith Cells /LPF Amorphous Sediment /LPF Urine Bacteria /LPF Acetone, Qual (Negative) COVID-19 (KATE) (Negative) COVID-19 Clin Com Critical Care Time Critical Care Time Critical Care Time: No Discharge Plan Discharge Clinical Impression: Headache Patient Disposition: Still a Patient Instructions: Acute Headache (ED) Additional Instructions: Take your medications as prescribed. If you were prescribed antibiotics today, it is important that you take your medication to their entirety, do not skip any doses, do not finish them early. Follow-up with your primary care provider this week. Return to the emergency department with new or worsening symptoms. Weakness, vision changes, headache, dizziness, nausea, vomiting, abdominal pain, chest pain, shortness of breath In case of emergency call 911 Take ibuprofen every 6 hours, Tylenol every 4 as needed for pain. Prescriptions: No Action carvedilol 12.5 mg tablet 12.5 mg PO BID 90 Days Qty: 180 1RF sertraline 100 mg tablet 100 tab PO DAILY 0RF Rx Instructions: one 25 mg tab + one 100 mg tab = 125 mg daily dose ondansetron HCl [Zofran] 4 mg Tablet 8 mg PO Q8H PRN (Reason: Nausea) Qty: 60 5RF aspirin 325 mg Tablet 325 mg PO DAILY Qty: 30 4RF sulfamethoxazole-trimethoprim [Bactrim DS] 800-160 mg Tablet 1 tab PO DAILY Qty: 60 5RF valacyclovir [Valtrex] 500 mg Tablet 500 mg PO DAILY Qty: 60 6RF dexamethasone [Decadron] 4 mg Tablet 20 mg PO DAILY Qty: 100 0RF Rx Instructions: TAKE 20 MG P.O. DAYS 1 &2 WEEKLY, WITH THE VELCADE. fluconazole [Diflucan] 100 mg Tablet 100 mg PO DAILY Qty: 7 4RF Magic Mouthwash Diphen/Lido/Antacid 1:1:1 240 mL Suspension 10 ml PO QID Qty: 240 4RF Rx Instructions: Lidocaine Viscous 2 % 80mL; diphenhydramine 12.5 mg/5 mL 80mL; aluminum-mag hydrox-simeth [id number]/5mL 80mL Revlimid 15 mg Capsule 15 mg PO DAILY Qty: 14 6RF Rx Instructions: swallow whole with glass of water; do not open, crush, chew , break, or dissolve fluticasone propion-salmeterol 250-50 mcg/dose Blister With Device 1 inh INHALATION Q12H 0RF gabapentin 300 mg Capsule 600 mg PO BEDTIME 0RF azelastine 137 mcg (0.1 %) Aerosol,[place] 2 spray INTRANASAL BID 0RF insulin lispro [Humalog KwikPen Insulin] 100 unit/mL Insulin Pen 10 - 15 unit SUBCUT TID 0RF (DME) pen needle, diabetic [BD Ultra-Fine Short Pen Needle] 31 gauge x 5/16 needle subcut QID 0RF fenofibrate nanocrystallized 145 mg tablet 1 tab PO DAILY 0RF tizanidine 4 mg tablet 1 tab PO BEDTIME PRN (Reason: muscle spasm) 0RF torsemide 20 mg tablet 60 mg PO BID 30 Days Qty: 180 5RF clopidogrel 75 mg tablet 75 mg PO DAILY 0RF atorvastatin 80 mg tablet 80 mg PO BEDTIME 0RF albuterol sulfate 90 mcg/actuation HFA aerosol inhaler 2 puff inhalation Q4H PRN (Reason: Cough) 0RF docusate sodium 100 mg capsule 100 mg PO BID 0RF Rx Instructions: hold for diarrhea pantoprazole 40 mg tablet,delayed release (DR/EC) 40 mg PO DAILY 0RF sertraline 25 mg tablet 25 mg PO DAILY 0RF Rx Instructions: one 25 mg tab + one 100 mg tab = 125 mg daily dose amitriptyline 25 mg tablet 25 mg PO BEDTIME 0RF gabapentin [Neurontin] 300 mg capsule 300 mg PO DAILY 0RF Lantus Solostar U-100 Insulin 100 unit/mL (3 mL) insulin pen 36 unit subcut QAM 0RF Januvia 25 mg tablet 25 mg PO DAILY 0RF Referrals: Guido Burch III, MD [Primary Care Provider] - 2 days
[2021-08-28 14:16] LABS: MANUAL DIFF FLAG NO
[2021-08-28 14:18] LABS: Eosinophils Absolute Auto 0.4 X10*3/uL (0.0-0.4); Eosinophils Percent Auto 4.6 % (0-4); Hematocrit 25.9 % (42.0-52.0); Hemoglobin 8.5 g/dl (14.0-18.0); Imm Gran Abs Auto 0.07 X10*3/uL (0.00-0.03); Imm Gran Pct Auto 0.9 % (0.0-0.4); Lymphocytes Percent Auto 13.4 % (20-40); Mean Corpuscular HGB Conc 32.8 g/dl (31.0-36.0); Mean Corpuscular Hemoglobin 32.1 pg (27.0-33.0); Mean Corpuscular Volume 97.7 fL (80.0-98.0); Mean Platelet Volume 11.1 fL (9.4-12.4); Monocytes Absolute Auto 0.8 X10*3/uL (0.1-1.2); Monocytes Percent Auto 10.7 % (2-11); Neutrophils Absolute Auto 5.4 x10*3/uL (2.0-8.3); Neutrophils Percent Auto 70.4 % (45-73); Platelet Count 193 X10*3/uL (160-400); Red Blood Count 2.65 X10*6/uL (4.60-5.80); Red Cell Distribution Width 15.9 % (11.0-16.0); White Blood Count 7.7 X10*3/uL (4.8-10.8)
[2021-08-28] MEDS: Morphine Sulfate 4 MG/ML CARTRIDGE IVPUSH (14:25)
[2021-08-28] MEDS: 0.9 % Sodium Chloride 1,000 ML 999 ML IV (14:25)
[2021-08-28] MEDS: ondansetron HCL 4 MG/2 ML VIAL IVPUSH (14:25)
[2021-08-28 14:39] LABS: Alanine Aminotransferase 24 U/L (0-40); Albumin Level 4.3 g/dL (3.5-5.0); Alkaline Phosphatase 72 U/L (39-117); Anion Gap 16 (12-20); Aspartate Amino Transferase 23 U/L (5-37); Bilirubin Total 0.4 mg/dL (0.0-1.0); Blood Urea Nitrogen 53 mg/dL (9-16); Calcium 9.3 mg/dL (8.4-10.2); Carbon Dioxide 27 mmol/L (22-29); Chloride 95 mmol/L (96-108); Creatinine Clr Calc Pharmacy 24.8; Estimated Glomerular Filt Rate 19; Glucose Random 515 mg/dL (60-115); Magnesium 2.1 mg/dL (1.6-2.6); Potassium 5.2 mmol/L (3.3-5.1); Sodium 133 mmol/L (135-145); Total Protein 6.9 g/dL (6.5-8.0)
--- NOTE | 2021-08-28 14:41 | ECG_ITS ---
Test Reason : sob Blood Pressure : / mmHG Vent. Rate : 079 BPM Atrial Rate : 079 BPM P-R Int : 162 ms QRS Dur : 082 ms QT Int : 416 ms P-R-T Axes : 059 002 090 degrees QTc Int : 477 ms Normal sinus rhythm Minimal voltage criteria for LVH, may be normal variant ( R in aVL ) Abnormal ECG When compared to the previous EKG of 11 feb 2021, QT has shortened Referred By: Kali Soria Electronically Signed By:OLAYINKA ROBLES
[2021-08-28 14:53] LABS: COVID-19 Test Invalid (Negative)
[2021-08-28 15:17] LABS: Venous Blood Gas Refer to POC result
[2021-08-28 15:18] LABS: VBG Base Excess 4.4 mmol/L; VBG HCO3 30 mmol/L (22-26); VBG pCO2 51 mmHg; VBG pH 7.37 (7.32-7.43); VBG pO2 46 mmHg
[2021-08-28 15:24] LABS: Acetone, serum QL Negative (Negative)
[2021-08-28 15:40] LABS: COVID-19 Test Negative (Negative)
[2021-08-28] MEDS: Insulin Lispro 100 UNIT/ML 3 ML VIAL 8 UNIT SUBCUT (15:44)
[2021-08-28] MEDS: Sodium Zirconium Cyclosilicate 5 GM POWD.PACK PO (15:44)
[2021-08-28 15:56] LABS: Appearance Urine CLEAR; Color Urine YELLOW; Glucose Urine UA >=1000 MG/DL (NEG); Leukocyte Esterase Urine NEG (NEG); Nitrite Urine NEG (NEG); PH 5.5 (5.0-8.0); Urine Blood NEG (NEG); Urine Ketones NEG (NEG); Urine Protein NEG (NEG-TRACE)
[2021-08-28 16:11] LABS: Amorphous Sediment Urine TRACE /LPF; RBC Urine 0 /HPF (0); Squamous Epithelial Cell Urine TRACE /LPF; WBC Urine 0 /HPF (0-4)
[2021-08-28 16:49] LABS: Glucose, Whole Blood 320 mg/dL (60-115)
[2021-08-28] MEDS: HYDROmorphone HCl 0.5 MG/0.5 ML SYRINGE IVPUSH ×2 (16:56→19:49)
[2021-08-28 18:29] LABS: Alanine Aminotransferase 25 U/L (0-40); Albumin Level 4.2 g/dL (3.5-5.0); Alkaline Phosphatase 70 U/L (39-117); Anion Gap 15 (12-20); Aspartate Amino Transferase 27 U/L (5-37); Bilirubin Total 0.4 mg/dL (0.0-1.0); Blood Urea Nitrogen 47 mg/dL (9-16); Calcium 9.2 mg/dL (8.4-10.2); Carbon Dioxide 30 mmol/L (22-29); Chloride 99 mmol/L (96-108); Creatinine Clr Calc Pharmacy 28.3; Estimated Glomerular Filt Rate 22; Glucose Random 266 mg/dL (60-115); Potassium 4.3 mmol/L (3.3-5.1); Sodium 140 mmol/L (135-145); Total Protein 6.7 g/dL (6.5-8.0)
[2021-08-28 19:40] LABS: Glucose, Whole Blood 229 mg/dL (60-115)
[2021-08-28] MEDS: Butalb/Acetamin/Caff 50/325/40 TABLET 1 TAB PO (22:03)
[2021-08-28] MEDS: LORazepam 2 MG/ML VIAL 1 MG IVPUSH (22:04)
== END 2021-08-28 23:38 | disposition home or self-care (01) ==
PROVIDERS: Physician Assistant; Emergency Provider Emergency Medicine; PCP Internal Medicine
DX: R51.9 Headache, unspecified (principal); R06.02 Shortness of breath; I25.10 Atherosclerotic heart disease of native coronary artery without angina pectoris; F17.210 Nicotine dependence, cigarettes, uncomplicated; F12.90 Cannabis use, unspecified, uncomplicated; Z20.822 Contact with and (suspected) exposure to COVID-19; Z71.6 Tobacco abuse counseling; Z79.899 Other long term (current) drug therapy
CPT/HCPCS: 36415; 70450; 71045; 80053; 81001; 82009; 82803; 82947; 83735; 85025; 87635; 93005; 96361; 96374; 96375; 96376; 99285; J1170; J2060; J2270; J2405

== ENCOUNTER 2021-08-29 22:20 | Emergency (ER) | payer OTHER, SELFPAY ==
--- NOTE | ~2021-08-29 | CT_ITS ---
EXAMINATION: CT ABDOMEN AND PELVIS WITHOUT CONTRAST CLINICAL INFORMATION: Abdominal pain COMPARISON: 02/03/2021 TECHNIQUE: Multidetector volumetric imaging was performed from the superior aspect of the liver through the pubic symphysis. Sagittal and coronal reformatted images were obtained on the technologist's workstation. This CT examination was performed using dose optimization techniques as appropriate, variously including the following: *Automated exposure control *Adjustment of mA and/or kV according to patient size (this includes techniques or standardized protocols for targeted exams where dose is matched to indication/reason for exam; i.e. extremities or head) *Use of iterative reconstruction technique DLP: 653 mGy-cm FINDINGS: LUNG BASES: Bibasilar atelectasis. More focal consolidation of the left lower lobe posteriorly. This could represent rounded atelectasis. Coronary artery calcifications. LIVER, GALLBLADDER, AND BILIARY TREE: The liver is normal in size, shape, and attenuation. No focal hepatic lesion or biliary ductal dilatation is present. Cholecystectomy. PANCREAS: Unremarkable. SPLEEN: Unremarkable. ADRENAL GLANDS: Unremarkable. KIDNEYS AND URETERS: The kidneys are normal in size, shape, and attenuation. No hydronephrosis, hydroureter, or calculi seen. Mild symmetric perinephric stranding. BLADDER: Unremarkable. GASTROINTESTINAL TRACT: The small and large bowel are unremarkable. The appendix is unremarkable. ABDOMINAL WALL: No significant hernia is appreciated. LYMPH NODES: Normal. VASCULAR: Normal caliber aorta with mild atherosclerotic calcification. PELVIC VISCERA: The prostate and seminal vesicles are unremarkable. OSSEOUS STRUCTURES: Unremarkable. CT/CT abdomen pelvis wo con IMPRESSION: No acute finding in the abdomen or pelvis. No inflammatory changes. Likely rounded atelectasis at the left base. Fleischner guidelines were followed.
[2021-08-29 22:24] VITALS: BP 152/96; PULSE 105; RESP 20; TEMP 36.6; O2SAT 99; BMI 26.6
--- NOTE | 2021-08-29 22:39 | ED_ITS ---
HPI - Nausea/Vomiting/Diarrhea General Chief complaint: Nausea/Vomiting/Diarrhea Stated complaint: non stop vomiting Time Seen by Provider: 08/30/21 01:25 Source: patient Mode of arrival: ambulatory Limitations: no limitations History of Present Illness HPI Narrative: 46-year-old male with multiple myeloma, qid running kidney disease, diabetes, chronic systolic heart failure, with ICD placement and coronary artery disease presents with intractable nausea and vomiting that started after his discharge from this facility on 08/29/2021 to for intractable headache. Patient feels that the medications that he received for his headache is contributing to his intractable nausea and vomiting. MD elicited complaint: nausea and vomiting Pertinent past history: other Onset (ago): day(s) (1) Description of vomiting: watery Associated nausea: Yes Associated abdominal pain: Yes Location of pain: diffuse Radiation: diffuse Pain consistency: constant Severity: moderate Quality: aching Exacerbating factors: vomiting Relieving factors: none Context: other (Chemotherapy) Associated symptoms: nausea/vomiting Treatment prior to arrival: other (Zofran) Related Data Home Medications Medication Instructions Recorded Confirmed albuterol sulfate 90 mcg/actuation 2 puff INHALATION Q4H PRN 04/25/20 08/18/21 aerosol inhaler amitriptyline 25 mg tablet 25 mg PO BEDTIME 04/25/20 08/18/21 atorvastatin 80 mg tablet 80 mg PO BEDTIME 04/25/20 08/18/21 clopidogrel 75 mg tablet 75 mg PO DAILY 04/25/20 08/18/21 docusate sodium 100 mg capsule 100 mg PO BID 04/25/20 08/18/21 gabapentin 300 mg capsule 300 mg PO DAILY 04/25/20 08/18/21 (Neurontin) insulin glargine 100 unit/mL (3 36 unit SUBCUT QAM ml 04/25/20 08/18/21 mL) subcutaneous pen (Lantus Solostar U-100 Insulin) pantoprazole 40 mg tablet,delayed 40 mg PO DAILY 04/25/20 08/18/21 release sertraline 25 mg tablet 25 mg PO DAILY 04/25/20 08/18/21 azelastine 137 mcg (0.1 %) nasal 2 spray INTRANASAL BID 02/04/21 08/18/21 spray aerosol fenofibrate nanocrystallized 145 1 tab PO DAILY 02/04/21 08/18/21 mg tablet fluticasone 250 mcg-salmeterol 50 1 inh INHALATION Q12H 02/04/21 08/18/21 mcg/dose blistr powdr for inhalation gabapentin 300 mg capsule 600 mg PO BEDTIME 02/04/21 08/18/21 insulin lispro 100 unit/mL 10 - 15 unit SUBCUT TID 02/04/21 08/18/21 subcutaneous pen (Humalog KwikPen (U-100) Insulin) pen needle, diabetic 31 gauge x 02/04/21 06/17/2111/16 (BD Ultra-Fine Short Pen Needle) tizanidine 4 mg tablet 1 tab PO BEDTIME PRN 02/04/21 08/18/21 sitagliptin 25 mg tablet (Januvia) 25 mg PO DAILY 03/18/21 08/18/21 sertraline 100 mg tablet 100 tab PO DAILY 05/25/21 08/18/21 Previous Rx's Medication Instructions Recorded carvedilol 12.5 mg tablet 12.5 mg PO BID 90 Days #180 tab 07/28/20 torsemide 20 mg tablet 60 mg PO BID 30 Days #180 tab 03/18/21 aspirin 325 mg tablet 325 mg PO DAILY #30 tab 05/25/21 ondansetron HCl 4 mg tablet 8 mg PO Q8H PRN #60 tab 05/25/21 (Zofran) sulfamethoxazole 800 1 tab PO DAILY #60 tab 05/25/21 mg-trimethoprim 160 mg tablet (Bactrim DS) valacyclovir 500 mg tablet 500 mg PO DAILY #60 tab 05/25/21 (Valtrex) dexamethasone 4 mg tablet 20 mg PO DAILY #100 tab 07/07/21 (Decadron) Magic Mouthwash 10 ml PO QID #240 ml 08/18/21 Diphen/Lido/Antacid 1:1:1 240 mL suspension fluconazole 100 mg tablet 100 mg PO DAILY #7 tab 08/18/21 (Diflucan) lenalidomide 15 mg capsule 15 mg PO DAILY #14 cap 08/25/21 (Revlimid) qutvrlkuoo-osrjkahaamqop-mtkncuut 1 cap PO Q6H PRN #20 cap 08/28/21 50 mg-300 mg-40 mg capsule (Fioricet) lorazepam 0.5 mg tablet (Ativan) 0.5 mg PO TID PRN #10 tab 08/28/21 Allergies Allergy/AdvReac Type Severity Reaction Status Date / Time egg [EGG] Allergy Severe NAUSEA, Verified 08/29/21 22:23 ITCHY THROAT meperidine [From DEMEROL] Allergy Unknown AGITATION Verified 08/29/21 22:23 Review of Systems Review of Systems: Constitutional: No Weight loss, No Fever, No Chills, No Night Sweats, No Fatigue, No Malaise ENT/Mouth: No Hearing loss, No Ear Pain, No Nasal Congestion, No Sinus Pain, No Hoarseness, No sore throat, No Rhinorrhea, No Swallowing Difficulty Eyes: No Eye Pain, No Swelling, No Redness, No Foreign Body, No Discharge, No Vision Changes Cardiovascular: No Chest Pain, No SOB, No Dyspnea on Exertion, No Orthopnea, No Edema, No Palpitations Respiratory: No Cough, No Sputum, No Wheezing, No Smoke Exposure, No Dyspnea Gastrointestinal: Positive Nausea, Positive Vomiting, no Diarrhea, positive abdominal Pain, No Hematochezia, No Melena Genitourinary: no irregular bleeding, No Dysuria, No Urinary Frequency, No Hematuria, No Urinary Incontinence, No Urgency, No Flank Pain, No Urinary Flow Changes, No Hesitancy Musculoskeletal: No joint pain, No Myalgias, No Joint Swelling Skin: No Skin Lesions, No rash Neuro: No Weakness, No Numbness, No Paresthesias, No Loss of Consciousness, No Dizziness, No Headache Psych: No Anxiety/Panic, No Depression, No SI/HI/AH/VH, No Social Issues Heme/Lymph: No Bruising, No Bleeding,No Lymphadenopathy Endocrine: No Polyuria, No Polydipsia, No Temperature Intolerance Yes all other systems are reviewed and are negative Gastrointestinal: Gastrointestinal: Reports nausea PMFSH Past Medical History Attestation statement: The following information was validated with the patient. Source: old records reviewed Medical History CAD (coronary artery disease) CKD (chronic kidney disease) CVA (cerebral vascular accident) Diabetes mellitus HLD (hyperlipidemia) HTN (hypertension) ICD (implantable cardioverter-defibrillator) in place Ischemic cardiomyopathy Monoclonal gammopathy Surgical History Hx of cardiac cath (~2017) S/P CABG x 2 (~02/2019) Family History Family History Father Diabetes mellitus Esophageal cancer Mother Diabetes mellitus Brother Diabetes mellitus Sister Diabetes mellitus Social History Social History Household Members: Spouse Housing: House Do you presently have visiting nurse or other home services: No Alcohol intake: never Patient Tobacco Use Status: Current everyday Tobacco user Smoking Start Date: 03/23/21 (Pt resumed smoking 2 months ago after quitting for a year) Tobacco use type: Cigarette Substance Use Type: Marijuana Advance Directives: No Advance Directives Information Provided: Yes service: No Current occupational status: unemployed Physical Exam Vital Signs: Vital Signs: Last Vital Signs Temp 98 F 08/29/21 22:24 Pulse 105 H 08/29/21 22:24 Resp 20 08/29/21 22:24 BP 152/96 H 08/29/21 22:24 Pulse Ox 99 08/29/21 22:24 BMI result Body Mass Index 26.6 Appearance: Alert. Oriented X3. Moderate distress. Eyes: Pupils equal, round and reactive to light. EOMI. Sclera nonicteric. ENT: Pharynx normal. Dry mucous membranes. Neck: Normal inspection. Neck supple. CVS: Tachycardic heart rate and rhythm. Apical pulse equal to pulses to extremities Respiratory: No respiratory distress. Breath sounds normal. Abdomen: Soft and diffusely tender. Nondistended, no rigidity or rebound. Skin: Skin warm and dry. Normal skin color. Normal skin turgor. Extremities: No lower extremity edema. Moves all extremities against resistance. Neuro: No motor deficit. No sensory deficit. Cranial nerves 2-12 intact. Course Course Course Narrative: 46-year-old male presents with intractable nausea and vomiting that started after his discharge from this facility on 08/29/2021, was treated for migraines status post chemotherapy treatment. Patient has had several doses of Zofran with poor effect. States that his abdomen is tender but does not want any pain medications at this time. Will give Phenergan, Benadryl, and order CT scan of abdomen pelvis without contrast as he does have chronic kidney disease with elevated BUN 33 and creatinine 2.37 at this time. These values are improvement over past few days, highest being BUN 53 and creatinine Of 3.60 on 08/28/2021. Blood sugar 450, will give 10 units of subcu insulin. Troponin 45.8, this could be a normal variant with his chronic kidney disease, systolic CHF, and hypertension. Will repeat 2nd troponin at 01:00. H&H 9.3/27.9 which is better than his prior values. 01:19 2nd troponin 49.1, less than 50% delta. Patient no longer experiencing nausea and vomiting. Will discharge home and have patient follow-up with Oncology. Patient verbalized understanding of and agrees plan of care discharge home. Verbalizes understanding of signs and symptoms indicating need for emergent intervention. MDM - Nausea/Vomiting/Diarrhea MDM Narrative Medical decision making narrative: Bowel obstruction, ACS Differential Diagnosis Differential diagnosis: Likely gastroenteritis, drug-induced nausea and vomiting and dehydration Medical Records Attestation: I reviewed the patient's medical records. Lab Data Attestation: I reviewed the patient's lab results. Result diagrams: 08/29/21 23:08 08/29/21 23:08 Labs: Lab Results 08/29/21 08/29/21 08/29/21 Range/Units 23:08 23:08 23:08 WBC 8.5 (4.8-10.8) X10*3/uL RBC 2.92 L (4.60-5.80) X10*6/uL Hgb 9.3 L (14.0-18.0) g/dl Hct 27.9 L (42.0-52.0) % MCV 95.5 (80.0-98.0) fL MCH 31.8 (27.0-33.0) pg MCHC 33.3 (31.0-36.0) g/dl RDW 15.3 (11.0-16.0) % Plt Count 230 (160-400) X10*3/uL MPV 10.8 (9.4-12.4) fL Immature Gran % (Auto) 0.5 H (0.0-0.4) % Neut % (Auto) 75.7 H (45-73) % Lymph % (Auto) 12.0 L (20-40) % [place] % (Auto) 9.1 (2-11) % Eos % (Auto) 2.7 (0-4) % Baso % (Auto) 0.0 (0-2) % Lymph # (Auto) 1.0 L (1.2-4.9) X10*3/uL [place] # (Auto) 0.8 (0.1-1.2) X10*3/uL Eos # (Auto) 0.2 (0.0-0.4) X10*3/uL Baso # (Auto) 0.0 (0.0-0.2) X10*3/uL Abs Immat Gran (auto) 0.04 H (0.00-0.03) X10*3/uL Absolute Neuts (auto) 6.4 (2.0-8.3) x10*3/uL Absolute Nucleated RBC 0.000 (0.0-0.012) X10*3/uL Nucleated RBC % (auto) 0.0 (0.0-0.2) /100WBC PT (9.9-13.0) SEC INR (0.9-1.1) Sodium 140 (135-145) mmol/L Potassium 4.2 (3.3-5.1) mmol/L Chloride 99 (96-108) mmol/L Carbon Dioxide 26 (22-29) mmol/L Anion Gap 19 (12-20) BUN 33 H (9-16) mg/dL Creatinine 2.37 H (0.5-1.4) mg/dL Estim Creat Clear Calc 36.0 Estimated GFR 30 Random Glucose 449 H* (60-115) mg/dL Calcium 10.0 D (8.4-10.2) mg/dL Total Bilirubin 0.5 (0.0-1.0) mg/dL Direct Bilirubin 0.2 (0.0-0.5) mg/dL AST 28 (5-37) U/L ALT 30 (0-40) U/L Alkaline Phosphatase 77 (39-117) U/L Troponin I High Sens 45.8 H (<3.5-35.0) ng/L Total Protein 7.3 (6.5-8.0) g/dL Albumin 4.4 (3.5-5.0) g/dL Lipase 72 (8-78) U/L COVID-19 ([facility]) (Negative) COVID-19 Clin Com 08/29/21 08/29/21 08/30/21 Range/Units 23:08 23:08 00:49 WBC (4.8-10.8) X10*3/uL RBC (4.60-5.80) X10*6/uL Hgb (14.0-18.0) g/dl Hct (42.0-52.0) % MCV (80.0-98.0) fL MCH (27.0-33.0) pg MCHC (31.0-36.0) g/dl RDW (11.0-16.0) % Plt Count (160-400) X10*3/uL MPV (9.4-12.4) fL Immature Gran % (Auto) (0.0-0.4) % Neut % (Auto) (45-73) % Lymph % (Auto) (20-40) % [place] % (Auto) (2-11) % Eos % (Auto) (0-4) % Baso % (Auto) (0-2) % Lymph # (Auto) (1.2-4.9) X10*3/uL [place] # (Auto) (0.1-1.2) X10*3/uL Eos # (Auto) (0.0-0.4) X10*3/uL Baso # (Auto) (0.0-0.2) X10*3/uL Abs Immat Gran (auto) (0.00-0.03) X10*3/uL Absolute Neuts (auto) (2.0-8.3) x10*3/uL Absolute Nucleated RBC (0.0-0.012) X10*3/uL Nucleated RBC % (auto) (0.0-0.2) /100WBC PT 12.9 (9.9-13.0) SEC INR 1.1 (0.9-1.1) Sodium (135-145) mmol/L Potassium (3.3-5.1) mmol/L Chloride (96-108) mmol/L Carbon Dioxide (22-29) mmol/L Anion Gap (12-20) BUN (9-16) mg/dL Creatinine (0.5-1.4) mg/dL Estim Creat Clear Calc Estimated GFR Random Glucose (60-115) mg/dL Calcium (8.4-10.2) mg/dL Total Bilirubin (0.0-1.0) mg/dL Direct Bilirubin (0.0-0.5) mg/dL AST (5-37) U/L ALT (0-40) U/L Alkaline Phosphatase (39-117) U/L Troponin I High Sens 49.1 H (<3.5-35.0) ng/L Total Protein (6.5-8.0) g/dL Albumin (3.5-5.0) g/dL Lipase (8-78) U/L COVID-19 ([facility]) Negative (Negative) COVID-19 Clin Com See Note Imaging Data CT scan - abdomen: Attestation: I personally reviewed and interpreted this imaging study as follows: Radiologist's impression: FINDINGS: LUNG BASES: Bibasilar atelectasis. More focal consolidation of the left lower lobe posteriorly. This could represent rounded atelectasis. Coronary artery calcifications.? LIVER, GALLBLADDER, AND BILIARY TREE: The liver is normal in size, shape, and attenuation. No focal hepatic lesion or biliary ductal dilatation is present. Cholecystectomy.? PANCREAS: Unremarkable.? SPLEEN: Unremarkable.? ADRENAL GLANDS: Unremarkable.? KIDNEYS AND URETERS: The kidneys are normal in size, shape, and attenuation. No hydronephrosis, hydroureter, or calculi seen. Mild symmetric perinephric stranding. ? BLADDER: Unremarkable.? GASTROINTESTINAL TRACT: The small and large bowel are unremarkable. The appendix is unremarkable.? ABDOMINAL WALL: No significant hernia is appreciated.? LYMPH NODES: Normal. VASCULAR: Normal caliber aorta with mild atherosclerotic calcification. PELVIC VISCERA: The prostate and seminal vesicles are unremarkable.? OSSEOUS STRUCTURES: Unremarkable.? CT/CT abdomen pelvis wo con IMPRESSION: No acute finding in the abdomen or pelvis. No inflammatory changes. ? Likely rounded atelectasis at the left base.? ? Fleischner guidelines were followed. ECG Data Attestation: I personally reviewed and interpreted this ECG as follows: ECG interpretation date: 08/29/21 ECG interpretation time: 22:30 Prior ECG tracings: available for review Interpretation: Ventricular rate 102 beats per minute, MT 146, QRS 74, QT 360, QTC 469, sinus tachycardia with ST and T-wave abnormality consider lateral ischemia Scores Heart Score History: -1- moderately suspicious ECG: -1- non specific repolarization disturbance Age: -1- >45 - <65 Risk factory: -1- 1 or 2 risk factors Troponin: -2- > or = 3x normal limit Score: 6 Risk: 16.6% Discharge Plan Discharge Clinical Impression: Dehydration, Nausea & vomiting, Abdominal pain Patient Disposition: Home, Self-Care Instructions: Dehydration (ED), Acute Nausea and Vomiting (ED), Abdominal Pain (ED) Additional Instructions: Your evaluated for abdominal pain nausea and vomiting. CT scan of abdomen pelvis is negative for acute findings requiring emergent intervention. Please continue to use Zofran as needed. Follow-up with Oncology Tuesday. Thank you for choosing this emergency department for evaluation. Please follow-up with primary care physician as needed. Return to the emergency department for any new, concerning, or worsening symptoms. Prescriptions: No Action carvedilol 12.5 mg tablet 12.5 mg PO BID 90 Days Qty: 180 1RF sertraline 100 mg tablet 100 tab PO DAILY 0RF Rx Instructions: one 25 mg tab + one 100 mg tab = 125 mg daily dose ondansetron HCl [Zofran] 4 mg Tablet 8 mg PO Q8H PRN (Reason: Nausea) Qty: 60 5RF aspirin 325 mg Tablet 325 mg PO DAILY Qty: 30 4RF sulfamethoxazole-trimethoprim [Bactrim DS] 800-160 mg Tablet 1 tab PO DAILY Qty: 60 5RF valacyclovir [Valtrex] 500 mg Tablet 500 mg PO DAILY Qty: 60 6RF dexamethasone [Decadron] 4 mg Tablet 20 mg PO DAILY Qty: 100 0RF Rx Instructions: TAKE 20 MG P.O. DAYS 1 &2 WEEKLY, WITH THE VELCADE. fluconazole [Diflucan] 100 mg Tablet 100 mg PO DAILY Qty: 7 4RF Magic Mouthwash Diphen/Lido/Antacid 1:1:1 240 mL Suspension 10 ml PO QID Qty: 240 4RF Rx Instructions: Lidocaine Viscous 2 % 80mL; diphenhydramine 12.5 mg/5 mL 80mL; aluminum-mag hydrox-simeth 110eo-483cm-18yq/5mL 80mL Revlimid 15 mg Capsule 15 mg PO DAILY Qty: 14 6RF Rx Instructions: swallow whole with glass of water; do not open, crush, chew , break, or dissolve fluticasone propion-salmeterol 250-50 mcg/dose Blister With Device 1 inh INHALATION Q12H 0RF gabapentin 300 mg Capsule 600 mg PO BEDTIME 0RF azelastine 137 mcg (0.1 %) Aerosol,[place] 2 spray INTRANASAL BID 0RF insulin lispro [Humalog KwikPen Insulin] 100 unit/mL Insulin Pen 10 - 15 unit SUBCUT TID 0RF (DME) pen needle, diabetic [BD Ultra-Fine Short Pen Needle] 31 gauge x 5/16 needle subcut QID 0RF fenofibrate nanocrystallized 145 mg tablet 1 tab PO DAILY 0RF tizanidine 4 mg tablet 1 tab PO BEDTIME PRN (Reason: muscle spasm) 0RF vsxagfhrbr-mkzctrbrdjiyo-azqh [Fioricet] 50-300-40 mg capsule 1 cap PO Q6H PRN (Reason: Headache) Qty: 20 0RF lorazepam [Ativan] 0.5 mg tablet 0.5 mg PO TID PRN (Reason: anxiety) Qty: 10 0RF torsemide 20 mg tablet 60 mg PO BID 30 Days Qty: 180 5RF clopidogrel 75 mg tablet 75 mg PO DAILY 0RF atorvastatin 80 mg tablet 80 mg PO BEDTIME 0RF albuterol sulfate 90 mcg/actuation HFA aerosol inhaler 2 puff inhalation Q4H PRN (Reason: Cough) 0RF docusate sodium 100 mg capsule 100 mg PO BID 0RF Rx Instructions: hold for diarrhea pantoprazole 40 mg tablet,delayed release (DR/EC) 40 mg PO DAILY 0RF sertraline 25 mg tablet 25 mg PO DAILY 0RF Rx Instructions: one 25 mg tab + one 100 mg tab = 125 mg daily dose amitriptyline 25 mg tablet 25 mg PO BEDTIME 0RF gabapentin [Neurontin] 300 mg capsule 300 mg PO DAILY 0RF Lantus Solostar U-100 Insulin 100 unit/mL (3 mL) insulin pen 36 unit subcut QAM 0RF Januvia 25 mg tablet 25 mg PO DAILY 0RF
[2021-08-29 23:15] LABS: MANUAL DIFF FLAG NO
[2021-08-29 23:18] LABS: Eosinophils Absolute Auto 0.2 X10*3/uL (0.0-0.4); Eosinophils Percent Auto 2.7 % (0-4); Hematocrit 27.9 % (42.0-52.0); Hemoglobin 9.3 g/dl (14.0-18.0); Imm Gran Abs Auto 0.04 X10*3/uL (0.00-0.03); Imm Gran Pct Auto 0.5 % (0.0-0.4); Mean Corpuscular HGB Conc 33.3 g/dl (31.0-36.0); Mean Corpuscular Hemoglobin 31.8 pg (27.0-33.0); Mean Corpuscular Volume 95.5 fL (80.0-98.0); Mean Platelet Volume 10.8 fL (9.4-12.4); Monocytes Absolute Auto 0.8 X10*3/uL (0.1-1.2); Monocytes Percent Auto 9.1 % (2-11); Neutrophils Absolute Auto 6.4 x10*3/uL (2.0-8.3); Neutrophils Percent Auto 75.7 % (45-73); Platelet Count 230 X10*3/uL (160-400); Red Blood Count 2.92 X10*6/uL (4.60-5.80); Red Cell Distribution Width 15.3 % (11.0-16.0); White Blood Count 8.5 X10*3/uL (4.8-10.8)
[2021-08-29] MEDS: LORazepam 2 MG/ML VIAL 0.5 MG IVPUSH (23:18)
[2021-08-29] MEDS: diphenhydrAMINE HCL 50 MG/ML VIAL IVPUSH (23:19)
[2021-08-29] MEDS: 0.9 % Sodium Chloride 1,000 ML 999 ML IVCONT (23:19)
[2021-08-29 23:25] LABS: INTERNATIONAL NORM RATIO 1.1 (0.9-1.1); Prothrombin Time 12.9 SEC (9.9-13.0)
[2021-08-29 23:37] LABS: Troponin-I High Sensitivity 45.8 ng/L (<3.5-35.0)
[2021-08-29 23:44] LABS: Alanine Aminotransferase 30 U/L (0-40); Albumin Level 4.4 g/dL (3.5-5.0); Alkaline Phosphatase 77 U/L (39-117); Anion Gap 19 (12-20); Aspartate Amino Transferase 28 U/L (5-37); Bilirubin Direct 0.2 mg/dL (0.0-0.5); Bilirubin Total 0.5 mg/dL (0.0-1.0); Blood Urea Nitrogen 33 mg/dL (9-16); Carbon Dioxide 26 mmol/L (22-29); Chloride 99 mmol/L (96-108); Estimated Glomerular Filt Rate 30; Glucose Random 449 mg/dL (60-115); Lipase 72 U/L (8-78); Potassium 4.2 mmol/L (3.3-5.1); Sodium 140 mmol/L (135-145); Total Protein 7.3 g/dL (6.5-8.0)
[2021-08-29 23:46] LABS: COVID-19 Test Negative (Negative)
[2021-08-30] MEDS: Insulin Lispro 100 UNIT/ML 3 ML VIAL 10 UNIT SUBCUT (00:07)
--- NOTE | 2021-08-30 00:52 | PC.NURSE ---
pt to and from radiology without incident. Pt repeat troponin done at this time. Pt pending results
[2021-08-30 01:17] LABS: Troponin-I High Sensitivity 49.1 ng/L (<3.5-35.0)
== END 2021-08-30 01:36 | disposition home or self-care (01) ==
PROVIDERS: Nurse Practitioner Family; Emergency Provider Emergency Medicine
DX: R11.2 Nausea with vomiting, unspecified (principal); E86.0 Dehydration; R10.9 Unspecified abdominal pain; Z20.822 Contact with and (suspected) exposure to COVID-19; E11.22 Type 2 diabetes mellitus with diabetic chronic kidney disease; I13.0 Hypertensive heart and chronic kidney disease with heart failure and stage 1 through stage 4 chronic kidney disease, or unspecified chronic kidney disease; N18.9 Chronic kidney disease, unspecified; I50.22 Chronic systolic (congestive) heart failure; C90.00 Multiple myeloma not having achieved remission; F17.200 Nicotine dependence, unspecified, uncomplicated; F12.90 Cannabis use, unspecified, uncomplicated; Z79.4 Long term (current) use of insulin; Z79.82 Long term (current) use of aspirin; Z92.21 Personal history of antineoplastic chemotherapy; Z95.810 Presence of automatic (implantable) cardiac defibrillator
CPT/HCPCS: 36415; 74176; 80048; 80076; 83690; 84484; 85025; 85610; 87635; 96361; 96374; 96375; 99284; J1200; J2060; J2550

== ENCOUNTER 2021-08-30 13:19 | Inpatient (IN) | payer OTHER, SELFPAY ==
[2021-08-30 14:12] VITALS: BP 153/95; PULSE 99; RESP 20; TEMP 36.7; O2SAT 99; BMI 26.6
[2021-08-30 14:19] LABS: Glucose, Whole Blood 400 mg/dL (60-115)
[2021-08-30] MEDS: Ondansetron ODT 4 MG TAB.RAPDIS TRANSLINGU (14:22)
--- NOTE | 2021-08-30 14:27 | ECG_ITS ---
Test Reason : nausea Blood Pressure : / mmHG Vent. Rate : 098 BPM Atrial Rate : 098 BPM P-R Int : 144 ms QRS Dur : 076 ms QT Int : 378 ms P-R-T Axes : 042 -01 112 degrees QTc Int : 482 ms Normal sinus rhythm Left ventricular hypertrophy with repolarization abnormality ( R in aVL ) Inferior infarct , age undetermined Abnormal ECG When compared with ECG of 28-AUG-2021 14:43, T wave inversion more evident in Lateral leads Referred By: Polina Kauffman Electronically Signed By:Yayo Barba
--- NOTE | 2021-08-30 14:30 | ED_ITS ---
HPI - Nausea/Vomiting/Diarrhea General Chief complaint: Nausea/Vomiting/Diarrhea Stated complaint: Vomiting Time Seen by Provider: 08/30/21 14:27 Source: patient Mode of arrival: ambulatory Limitations: no limitations History of Present Illness HPI Narrative: 46-year-old male with a history of multiple myeloma on current chemotherapy, DM on insulin, CKD, CAD with ischemic cardiomyopathy, s/p AICD, hx CVA, who pre sents to the ER with ongoing nausea and vomiting for several days. He also developed loose watery bowel movements this morning and had several episodes. There was no blood. He also developed abdominal pain throughout his entire middle and upper abdomen. This is new. He was seen here recently for the same treated with IV medications and IV fluids and ultimately discharged home. Patient reports he has vomited over 20 times today and is unable to keep anything down. He is dizzy. He has not been able to eat anything at all today. He is not taking his insulin yesterday or today because of decreased p.o. intake. No fever or chills. No cough or chest pain. No other sick contacts. MD elicited complaint: nausea and vomiting Onset (ago): day(s) Description of vomiting: bilious and continuous Description of diarrhea: watery Associated nausea: Yes Associated abdominal pain: Yes Location of pain: epigastric and periumbilical Radiation: diffuse Pain consistency: intermittent Severity: severe Quality: cramping Exacerbating factors: eating Relieving factors: none Context: recent antibiotic use Associated symptoms: myalgias, loss of appetite, malaise, nausea/vomiting, weakness and anxiety Related Data Home Medications Medication Instructions Recorded Confirmed albuterol sulfate 90 mcg/actuation 2 puff INHALATION Q4H PRN 04/25/20 08/18/21 aerosol inhaler amitriptyline 25 mg tablet 25 mg PO BEDTIME 04/25/20 08/18/21 atorvastatin 80 mg tablet 80 mg PO BEDTIME 04/25/20 08/18/21 clopidogrel 75 mg tablet 75 mg PO DAILY 04/25/20 08/18/21 docusate sodium 100 mg capsule 100 mg PO BID 04/25/20 08/18/21 gabapentin 300 mg capsule 300 mg PO DAILY 04/25/20 08/18/21 (Neurontin) insulin glargine 100 unit/mL (3 36 unit SUBCUT QAM ml 04/25/20 08/18/21 mL) subcutaneous pen (Lantus Solostar U-100 Insulin) pantoprazole 40 mg tablet,delayed 40 mg PO DAILY 04/25/20 08/18/21 release sertraline 25 mg tablet 25 mg PO DAILY 04/25/20 08/18/21 azelastine 137 mcg (0.1 %) nasal 2 spray INTRANASAL BID 02/04/21 08/18/21 spray aerosol fenofibrate nanocrystallized 145 1 tab PO DAILY 02/04/21 08/18/21 mg tablet fluticasone 250 mcg-salmeterol 50 1 inh INHALATION Q12H 02/04/21 08/18/21 mcg/dose blistr powdr for inhalation gabapentin 300 mg capsule 600 mg PO BEDTIME 02/04/21 08/18/21 insulin lispro 100 unit/mL 10 - 15 unit SUBCUT TID 02/04/21 08/18/21 subcutaneous pen (Humalog KwikPen (U-100) Insulin) pen needle, diabetic 31 gauge x 02/04/21 06/17/21/16 (BD Ultra-Fine Short Pen Needle) tizanidine 4 mg tablet 1 tab PO BEDTIME PRN 02/04/21 08/18/21 sitagliptin 25 mg tablet (Januvia) 25 mg PO DAILY 03/18/21 08/18/21 sertraline 100 mg tablet 100 tab PO DAILY 05/25/21 08/18/21 Previous Rx's Medication Instructions Recorded carvedilol 12.5 mg tablet 12.5 mg PO BID 90 Days #180 tab 07/28/20 torsemide 20 mg tablet 60 mg PO BID 30 Days #180 tab 03/18/21 aspirin 325 mg tablet 325 mg PO DAILY #30 tab 05/25/21 ondansetron HCl 4 mg tablet 8 mg PO Q8H PRN #60 tab 05/25/21 (Zofran) sulfamethoxazole 800 1 tab PO DAILY #60 tab 05/25/21 mg-trimethoprim 160 mg tablet (Bactrim DS) valacyclovir 500 mg tablet 500 mg PO DAILY #60 tab 05/25/21 (Valtrex) dexamethasone 4 mg tablet 20 mg PO DAILY #100 tab 07/07/21 (Decadron) Magic Mouthwash 10 ml PO QID #240 ml 08/18/21 Diphen/Lido/Antacid 1:1:1 240 mL suspension fluconazole 100 mg tablet 100 mg PO DAILY #7 tab 08/18/21 (Diflucan) lenalidomide 15 mg capsule 15 mg PO DAILY #14 cap 08/25/21 (Revlimid) Allergies Allergy/AdvReac Type Severity Reaction Status Date / Time egg [EGG] Allergy Severe NAUSEA, Verified 08/30/21 14:12 ITCHY THROAT meperidine [From DEMEROL] Allergy Unknown AGITATION Verified 08/30/21 14:12 Review of Systems Review of Systems: Constitutional: No Fever, +Chills ENT/Mouth: No sore throat, No Rhinorrhea, No Swallowing Difficulty Cardiovascular: No Chest Pain, No SOB, No Orthopnea, No Edema Respiratory: No Cough, No Sputum, No Wheezing, No dyspnea Gastrointestinal: + Nausea, + Vomiting, + Diarrhea, +abdominal Pain, No Hematochezia, No Melena Genitourinary: No Dysuria, No Urinary Frequency, No Hematuria Musculoskeletal: No joint pain, + Myalgias Skin: No Skin Lesions, No rash Neuro: + Weakness, No Numbness, + Dizziness, + Headache Psych: No Anxiety/Panic, No Depression Heme/Lymph: No Bruising, No Lymphadenopathy Endocrine: No Polyuria, No Polydipsia Gastrointestinal: Gastrointestinal: Reports nausea PMFSH Past Medical History Medical History (Updated 08/30/21 @ 16:47 by LALITHA Reyes) CAD (coronary artery disease) CKD (chronic kidney disease) CVA (cerebral vascular accident) Diabetes mellitus HLD (hyperlipidemia) HTN (hypertension) ICD (implantable cardioverter-defibrillator) in place Ischemic cardiomyopathy Monoclonal gammopathy Multiple myeloma Surgical History Hx of cardiac cath (~2017) S/P CABG x 2 (~02/2019) Family History Family History Father Diabetes mellitus Esophageal cancer Mother Diabetes mellitus Brother Diabetes mellitus Sister Diabetes mellitus Social History Social History Household Members: Spouse Housing: House Do you presently have visiting nurse or other home services: No Alcohol intake: never Patient Tobacco Use Status: Never used Tobacco Tobacco use type: Cigarette Use of substances other than those prescribed or required for medical reasons: Yes Substance Use Type: Marijuana Advance Directives: No Advance Directives Information Provided: No service: No Current occupational status: unemployed Physical Exam Vital Signs: Vital Signs: Last Vital Signs Temp 98.5 F 08/30/21 15:40 Pulse 98 08/30/21 16:18 Resp 21 H 08/30/21 16:18 BP 133/73 08/30/21 16:18 Pulse Ox 99 08/30/21 16:18 BMI result Body Mass Index 26.6 Appearance: Alert. Oriented X3. Laying on his side on the stretcher, groaning in pain Eyes: Pupils equal, round and reactive to light. ENT: Pharynx normal. Moist mucous membranes, no evidence of active thrush. Neck: Normal inspection. Neck supple. CVS: Normal heart rate and rhythm. Pulses normal. Left lateral chest with a palpable AICD Respiratory: No respiratory distress. Breath sounds normal. Abdomen: Soft with diffuse tenderness, mostly in the periumbilical and epigastric area, no rebound or guarding. Hyperactive +BS x4 Skin: Skin warm and dry. Normal skin color. Normal skin turgor. No rashes. Extremities: No lower extremity edema. Neuro: Oriented X 3. No motor deficit. No sensory deficit. Nonfocal Course Course Course Narrative: 46-year-old male with history of multiple myeloma on current chemotherapy, history of cardiomyopathy with AICD status post open heart surgery in the past, diabetes on insulin who presents to the ER with nausea, vomiting for the last few days as well as new onset of diarrhea and abdominal pain that started today. He had a recent CT scan overnight that did not show any acute abnormalities. This is his 3rd ER visit in 3 days for similar symptoms. reports upon discharge he had only a few hours of symptom relief and the all restarted again. She thinks he was on recent oral antibiotics but she is unsure. Point of care for 400. Will check metabolic workup, rule out DKA, check C diff and stool culture. Symptoms may be related to chemotherapy. Will give a dose of IV Zofra n and gentle IV fluids. Reevaluation(s) Reevaluation #1: Spoke wt Dr. Villasenor via TT - patient is currenlty on Velcade, Revlimid and decadron for his chemo regimen. Decadron makes his sugar spike otherwise he reports adequate glucose control. Revlimid can cause diarrhea. His labs are unremarkable. He was given IV Benadryl and Phenergan during his last ED visit and requesting this again stating it was helping his symptoms. These meds have been ordered. Will reassess. Reevaluation #2: EKG with some ST depressions and T-wave inversions as well as Q-waves concerning for possible ischemia. Changes appear old however. Patient has no chest pain or shortness of breath. Will check troponin given his extensive cardiac history, 2 tropes were checked during last ED visit and were in the 40 range. Doubt acute cardiac event. Reevaluation #3: Troponin is at his baseline. He continues to be chest pain free. Will continue to monitor. Will plan for admission for observation and hydration given his ongoing and persistent symptoms. Patient and agree with plan. Consultations Consultation #1: Oncology Dr. Villasenor [facility] - Nausea/Vomiting/Diarrhea Medical Records Attestation: I reviewed the patient's medical records. Lab Data Attestation: I reviewed the patient's lab results. Result diagrams: 08/30/21 15:00 08/30/21 15:00 Labs: Lab Results 08/30/21 08/30/21 08/30/21 Range/Units 14:15 15:00 15:00 WBC 10.0 (4.8-10.8) X10*3/uL RBC 2.84 L (4.60-5.80) X10*6/uL Hgb 9.2 L (14.0-18.0) g/dl Hct 27.0 L (42.0-52.0) % MCV 95.1 (80.0-98.0) fL MCH 32.4 (27.0-33.0) pg MCHC 34.1 (31.0-36.0) g/dl RDW 15.2 (11.0-16.0) % Plt Count 263 (160-400) X10*3/uL MPV 10.4 (9.4-12.4) fL Immature Gran % (Auto) 0.4 (0.0-0.4) % Neut % (Auto) 82.7 H (45-73) % Lymph % (Auto) 8.4 L (20-40) % [place] % (Auto) 7.5 (2-11) % Eos % (Auto) 1.0 (0-4) % Baso % (Auto) 0.0 (0-2) % Lymph # (Auto) 0.8 L (1.2-4.9) X10*3/uL [place] # (Auto) 0.8 (0.1-1.2) X10*3/uL Eos # (Auto) 0.1 (0.0-0.4) X10*3/uL Baso # (Auto) 0.0 (0.0-0.2) X10*3/uL Abs Immat Gran (auto) 0.04 H (0.00-0.03) X10*3/uL Absolute Neuts (auto) 8.3 (2.0-8.3) x10*3/uL Absolute Nucleated RBC 0.000 (0.0-0.012) X10*3/uL Nucleated RBC % (auto) 0.0 (0.0-0.2) /100WBC VBG pH (7.32-7.43) VBG pCO2 mmHg VBG pO2 mmHg VBG HCO3 (22-26) mmol/L VBG O2 Saturation % VBG Base Excess mmol/L Sodium 139 (135-145) mmol/L Potassium 4.2 (3.3-5.1) mmol/L Chloride 103 (96-108) mmol/L Carbon Dioxide 22 (22-29) mmol/L Anion Gap 18 (12-20) BUN 29 H (9-16) mg/dL Creatinine 2.17 H (0.5-1.4) mg/dL Estim Creat Clear Calc 39.3 Estimated GFR 33 POC Glucose 400 H* (60-115) mg/dL Random Glucose 423 H* (60-115) mg/dL Lactic Acid (0.5-2.0) mmol/L Calcium 9.6 (8.4-10.2) mg/dL Magnesium 1.8 (1.6-2.6) mg/dL Total Bilirubin 0.6 (0.0-1.0) mg/dL Direct Bilirubin 0.2 (0.0-0.5) mg/dL AST 30 (5-37) U/L ALT 28 (0-40) U/L Alkaline Phosphatase 72 (39-117) U/L Troponin I High Sens (<3.5-35.0) ng/L Total Protein 6.8 (6.5-8.0) g/dL Albumin 4.2 (3.5-5.0) g/dL Lipase 42 (8-78) U/L COVID-19 ([facility]) (Negative) COVID-19 Clin Com 08/30/21 08/30/21 08/30/21 Range/Units 15:00 15:00 15:01 WBC (4.8-10.8) X10*3/uL RBC (4.60-5.80) X10*6/uL Hgb (14.0-18.0) g/dl Hct (42.0-52.0) % MCV (80.0-98.0) fL MCH (27.0-33.0) pg MCHC (31.0-36.0) g/dl RDW (11.0-16.0) % Plt Count (160-400) X10*3/uL MPV (9.4-12.4) fL Immature Gran % (Auto) (0.0-0.4) % Neut % (Auto) (45-73) % Lymph % (Auto) (20-40) % [place] % (Auto) (2-11) % Eos % (Auto) (0-4) % Baso % (Auto) (0-2) % Lymph # (Auto) (1.2-4.9) X10*3/uL [place] # (Auto) (0.1-1.2) X10*3/uL Eos # (Auto) (0.0-0.4) X10*3/uL Baso # (Auto) (0.0-0.2) X10*3/uL Abs Immat Gran (auto) (0.00-0.03) X10*3/uL Absolute Neuts (auto) (2.0-8.3) x10*3/uL Absolute Nucleated RBC (0.0-0.012) X10*3/uL Nucleated RBC % (auto) (0.0-0.2) /100WBC VBG pH (7.32-7.43) VBG pCO2 mmHg VBG pO2 mmHg VBG HCO3 (22-26) mmol/L VBG O2 Saturation % VBG Base Excess mmol/L Sodium (135-145) mmol/L Potassium (3.3-5.1) mmol/L Chloride (96-108) mmol/L Carbon Dioxide (22-29) mmol/L Anion Gap (12-20) BUN (9-16) mg/dL Creatinine (0.5-1.4) mg/dL Estim Creat Clear Calc Estimated GFR POC Glucose (60-115) mg/dL Random Glucose (60-115) mg/dL Lactic Acid 1.6 (0.5-2.0) mmol/L Calcium (8.4-10.2) mg/dL Magnesium (1.6-2.6) mg/dL Total Bilirubin (0.0-1.0) mg/dL Direct Bilirubin (0.0-0.5) mg/dL AST (5-37) U/L ALT (0-40) U/L Alkaline Phosphatase (39-117) U/L Troponin I High Sens 42.0 H (<3.5-35.0) ng/L Total Protein (6.5-8.0) g/dL Albumin (3.5-5.0) g/dL Lipase (8-78) U/L COVID-19 (KATE) Negative (Negative) COVID-19 Clin Com See Note 08/30/21 Range/Units 15:03 WBC (4.8-10.8) X10*3/uL RBC (4.60-5.80) X10*6/uL Hgb (14.0-18.0) g/dl Hct (42.0-52.0) % MCV (80.0-98.0) fL MCH (27.0-33.0) pg MCHC (31.0-36.0) g/dl RDW (11.0-16.0) % Plt Count (160-400) X10*3/uL MPV (9.4-12.4) fL Immature Gran % (Auto) (0.0-0.4) % Neut % (Auto) (45-73) % Lymph % (Auto) (20-40) % [place] % (Auto) (2-11) % Eos % (Auto) (0-4) % Baso % (Auto) (0-2) % Lymph # (Auto) (1.2-4.9) X10*3/uL [place] # (Auto) (0.1-1.2) X10*3/uL Eos # (Auto) (0.0-0.4) X10*3/uL Baso # (Auto) (0.0-0.2) X10*3/uL Abs Immat Gran (auto) (0.00-0.03) X10*3/uL Absolute Neuts (auto) (2.0-8.3) x10*3/uL Absolute Nucleated RBC (0.0-0.012) X10*3/uL Nucleated RBC % (auto) (0.0-0.2) /100WBC VBG pH 7.49 H (7.32-7.43) VBG pCO2 28 mmHg VBG pO2 84 mmHg VBG HCO3 21 L (22-26) mmol/L VBG O2 Saturation 93.0 % VBG Base Excess -0.3 mmol/L Sodium (135-145) mmol/L Potassium (3.3-5.1) mmol/L Chloride (96-108) mmol/L Carbon Dioxide (22-29) mmol/L Anion Gap (12-20) BUN (9-16) mg/dL Creatinine (0.5-1.4) mg/dL Estim Creat Clear Calc Estimated GFR POC Glucose (60-115) mg/dL Random Glucose (60-115) mg/dL Lactic Acid (0.5-2.0) mmol/L Calcium (8.4-10.2) mg/dL Magnesium (1.6-2.6) mg/dL Total Bilirubin (0.0-1.0) mg/dL Direct Bilirubin (0.0-0.5) mg/dL AST (5-37) U/L ALT (0-40) U/L Alkaline Phosphatase (39-117) U/L Troponin I High Sens (<3.5-35.0) ng/L Total Protein (6.5-8.0) g/dL Albumin (3.5-5.0) g/dL Lipase (8-78) U/L COVID-19 ([facility]) (Negative) COVID-19 Clin Com ECG Data Attestation: I personally reviewed and interpreted this ECG as follows: ECG interpretation date: 08/30/21 ECG interpretation time: 16:49 Prior ECG tracings: available for review Interpretation: Normal sinus rhythm, heart rate 98 beats per minute, J point elevation in lead III, ST depressions in leads 1 and aVL, Q-waves present in leads 3 and AVF, when compared to prior done 2 days ago no significant changes. Critical Care Time Critical Care Time Critical Care Time: Yes Total Critical Care Time: 36 Attestation: I have personally provided critical care time exclusive of time spent on separately billable procedures. Time includes review of lab data, radiology results, discussion with consultants, and monitoring for potential decompensation. Intervention performed as documented. Discharge Plan Discharge Clinical Impression: Alkalosis, metabolic, Intractable nausea and vomiting, Watery diarrhea, Acute hyperglycemia Patient Disposition: Admitted As Inpatient
[2021-08-30 14:42] VITALS: BP 151/72; PULSE 95; RESP 18; TEMP 37; O2SAT 97
[2021-08-30] MEDS: Insulin Lispro 100 UNIT/ML 3 ML VIAL 15 UNIT SUBCUT (14:43)
[2021-08-30] MEDS: 0.9 % Sodium Chloride 1,000 ML 999 ML IVCONT (15:01)
[2021-08-30 15:06] LABS: MANUAL DIFF FLAG NO
[2021-08-30 15:08] LABS: Venous Blood Gas Refer to POC result
[2021-08-30 15:08] LABS: Eosinophils Absolute Auto 0.1 X10*3/uL (0.0-0.4); Hemoglobin 9.2 g/dl (14.0-18.0); Imm Gran Abs Auto 0.04 X10*3/uL (0.00-0.03); Imm Gran Pct Auto 0.4 % (0.0-0.4); Lymphocytes Absolute Auto 0.8 X10*3/uL (1.2-4.9); Lymphocytes Percent Auto 8.4 % (20-40); Mean Corpuscular HGB Conc 34.1 g/dl (31.0-36.0); Mean Corpuscular Hemoglobin 32.4 pg (27.0-33.0); Mean Corpuscular Volume 95.1 fL (80.0-98.0); Mean Platelet Volume 10.4 fL (9.4-12.4); Monocytes Absolute Auto 0.8 X10*3/uL (0.1-1.2); Monocytes Percent Auto 7.5 % (2-11); Neutrophils Absolute Auto 8.3 x10*3/uL (2.0-8.3); Neutrophils Percent Auto 82.7 % (45-73); Platelet Count 263 X10*3/uL (160-400); Red Blood Count 2.84 X10*6/uL (4.60-5.80); Red Cell Distribution Width 15.2 % (11.0-16.0)
[2021-08-30 15:12] LABS: VBG Base Excess -0.3 mmol/L; VBG HCO3 21 mmol/L (22-26); VBG pCO2 28 mmHg; VBG pH 7.49 (7.32-7.43); VBG pO2 84 mmHg
[2021-08-30 15:24] LABS: COVID-19 Test Negative (Negative); IDNOW Serial# 16C4AD1C
[2021-08-30 15:26] LABS: Lactic Acid 1.6 mmol/L (0.5-2.0)
[2021-08-30 15:39] LABS: Alanine Aminotransferase 28 U/L (0-40); Albumin Level 4.2 g/dL (3.5-5.0); Alkaline Phosphatase 72 U/L (39-117); Anion Gap 18 (12-20); Aspartate Amino Transferase 30 U/L (5-37); Bilirubin Direct 0.2 mg/dL (0.0-0.5); Bilirubin Total 0.6 mg/dL (0.0-1.0); Blood Urea Nitrogen 29 mg/dL (9-16); Calcium 9.6 mg/dL (8.4-10.2); Carbon Dioxide 22 mmol/L (22-29); Chloride 103 mmol/L (96-108); Creatinine Clr Calc Pharmacy 39.3; Estimated Glomerular Filt Rate 33; Lipase 42 U/L (8-78); Magnesium 1.8 mg/dL (1.6-2.6); Potassium 4.2 mmol/L (3.3-5.1); Sodium 139 mmol/L (135-145); Total Protein 6.8 g/dL (6.5-8.0)
[2021-08-30 15:40] VITALS: BP 147/75; PULSE 93; RESP 16; TEMP 36.9; O2SAT 97
[2021-08-30 15:48] LABS: Glucose Random 423 mg/dL (60-115)
[2021-08-30] MEDS: diphenhydrAMINE HCL 50 MG/ML VIAL IVPUSH (15:50)
[2021-08-30 16:18] VITALS: BP 133/73; PULSE 98; RESP 21; O2SAT 99
--- NOTE | 2021-08-30 16:43 | P.HPHOSP_ITS ---
History of Present Illness Date of Service: 08/30/21 Chief Complaint: Nausea and vomiting nausea and vomiting A 46 years old male with PMH of multiple myeloma on chemotherapy, diabetes type 2, CAD, CMP post AICD, CKD stage III, CVA among others who presented to the hospital complaining of nausea and vomiting for the last 3 days. The patient reports that he had chemotherapy session last Tuesday and since then his started feeding none nausea vomiting and decreased oral intake with associated diarrhea that developed over the last day. He has been the emergency 3 times since Tuesday with the same problem that is not resolving. He denies any fever, chills, cough, shortness of breath, headache or change in urinary symptoms. He reports abdominal pain mainly after the vomiting. Reported that he is feeling very weak and dizzy and he cannot eat stand because of that. No sick contacts at home and no one else having similar symptoms. in the emergency was noted to have significantly elevated blood sugar levels with mildly elevated BNP. Started on symptomatic measures as Oncology team conducted on recommending admitting the patient for evaluation follow-up. Review of Systems Review of Systems: No fever, chills but reports generalized weakness No chest pain, palpitation No shortness of breath or coughing Having abdominal pain associated with nausea and vomiting and episodes of diarrhea No urinary symptoms No new rash or wounds [facility] Medical History CAD (coronary artery disease) CKD (chronic kidney disease) CVA (cerebral vascular accident) Diabetes mellitus HLD (hyperlipidemia) HTN (hypertension) ICD (implantable cardioverter-defibrillator) in place Ischemic cardiomyopathy Monoclonal gammopathy Multiple myeloma Family History Father Diabetes mellitus Esophageal cancer Mother Diabetes mellitus Brother Diabetes mellitus Sister Diabetes mellitus Surgical History Hx of cardiac cath (~2017) S/P CABG x 2 (~02/2019) Social History Household Members: Spouse Housing: House Do you presently have visiting nurse or other home services: No Alcohol intake: never Patient Tobacco Use Status: Never used Tobacco Tobacco use type: Cigarette Use of substances other than those prescribed or required for medical reasons: Yes Substance Use Type: Marijuana Advance Directives: No Advance Directives Information Provided: No service: No Current occupational status: unemployed Meds Allergies Allergy/AdvReac Type Severity Reaction Status Date / Time egg [EGG] Allergy Severe NAUSEA, Verified 08/30/21 14:12 ITCHY THROAT meperidine [From DEMEROL] Allergy Unknown AGITATION Verified 08/30/21 14:12 Active Medications: Current Medications Pharmacy Consult (Consult Rx Perform Med Rec) 1 each MISCELLANE ONCE PRN PRN Reason: Consult order Home Medications Medication Instructions Recorded Confirmed Last Taken Type albuterol sulfate 90 mcg/actuation 2 puff INHALATION Q4H PRN 04/25/20 08/30/21 Unknown History aerosol inhaler amitriptyline 25 mg tablet 25 mg PO BEDTIME 04/25/20 08/30/21 Unknown History atorvastatin 80 mg tablet 80 mg PO BEDTIME 04/25/20 08/30/21 Unknown History clopidogrel 75 mg tablet 75 mg PO DAILY 04/25/20 08/30/21 04/04/21 History docusate sodium 100 mg capsule 100 mg PO BID 04/25/20 08/30/21 04/09/21 History gabapentin 300 mg capsule 300 mg PO DAILY 04/25/20 08/30/21 04/09/21 History (Neurontin) insulin glargine 100 unit/mL (3 36 unit SUBCUT QAM ml 04/25/20 08/30/21 Unknown History mL) subcutaneous pen (Lantus Solostar U-100 Insulin) pantoprazole 40 mg tablet,delayed 40 mg PO DAILY 04/25/20 08/30/21 04/09/21 History release sertraline 25 mg tablet 25 mg PO DAILY 04/25/20 08/30/21 04/09/21 History azelastine 137 mcg (0.1 %) nasal 2 spray INTRANASAL BID 02/04/21 08/30/21 Un known History spray aerosol fenofibrate nanocrystallized 145 1 tab PO DAILY 02/04/21 08/30/21 04/09/21 History mg tablet fluticasone 250 mcg-salmeterol 50 1 inh INHALATION Q12H 02/04/21 08/30/21 Unknown History mcg/dose blistr powdr for inhalation gabapentin 300 mg capsule 600 mg PO BEDTIME 02/04/21 08/30/21 Unknown History insulin lispro 100 unit/mL 10 - 15 unit SUBCUT TID 02/04/21 08/30/21 Unknown History subcutaneous pen (Humalog KwikPen (U-100) Insulin) pen needle, diabetic 31 gauge x 02/04/21 06/17/21 Unknown History 5/16 (BD Ultra-Fine Short Pen Needle) tizanidine 4 mg tablet 1 tab PO BEDTIME PRN 02/04/21 08/30/21 Unknown History sitagliptin 25 mg tablet (Januvia) 25 mg PO DAILY 03/18/21 08/30/21 04/09/21 History sertraline 100 mg tablet 100 tab PO DAILY 05/25/21 08/30/21 Unknown History Physical Exam Vital Signs and Narrative: Vital Signs: Last Vital Signs Temp 98.5 F 08/30/21 15:40 Pulse 98 08/30/21 16:18 Resp 21 H 08/30/21 16:18 BP 133/73 08/30/21 16:18 Pulse Ox 99 08/30/21 16:18 BMI result Body Mass Index 26.6 Const: Other: Constitutional : Alert, oriented, mildly anxious and distressed Neck : Normal inspection, Supple Cardiovascular : RRR, S1 S2, no lower extremity edema Respiratory : Fair bilateral air entry, no crackles, no wheezes or rhonchi Gastrointestinal: soft, lax, Normal bowel sounds, Non tender overall mildly epigastric tenderness with deep palpation Skin : Warm, Dry Neurological : Alert & oriented x3, No focal deficit Results Labs CBC and Chem 7: 08/30/21 15:00 08/30/21 15:00 Labs: Laboratory Results - last 24 hr 08/30/21 08/30/21 08/30/21 14:15 15:00 15:00 MCV 95.1 MCH 32.4 MCHC 34.1 RDW 15.2 Plt Count 263 MPV 10.4 Immature Gran % (Auto) 0.4 Neut % (Auto) 82.7 H Lymph % (Auto) 8.4 L [place] % (Auto) 7.5 Eos % (Auto) 1.0 Baso % (Auto) 0.0 Lymph # (Auto) 0.8 L [place] # (Auto) 0.8 Eos # (Auto) 0.1 Baso # (Auto) 0.0 Abs Immat Gran (auto) 0.04 H Absolute Neuts (auto) 8.3 Absolute Nucleated RBC 0.000 Nucleated RBC % (auto) 0.0 VBG pH VBG pCO2 VBG pO2 VBG HCO3 VBG O2 Saturation VBG Base Excess Anion Gap 18 Estim Creat Clear Calc 39.3 Estimated GFR 33 POC Glucose 400 H* Random Glucose 423 H* Lactic Acid Calcium 9.6 Magnesium 1.8 Total Bilirubin 0.6 Direct Bilirubin 0.2 AST 30 ALT 28 Alkaline Phosphatase 72 Total Protein 6.8 Albumin 4.2 Lipase 42 COVID-19 ([facility]) COVID-19 [employer] Com 08/30/21 08/30/21 08/30/21 15:00 15:00 15:03 MCV MCH MCHC RDW Plt Count MPV Immature Gran % (Auto) Neut % (Auto) Lymph % (Auto) [place] % (Auto) Eos % (Auto) Baso % (Auto) Lymph # (Auto) [place] # (Auto) Eos # (Auto) Baso # (Auto) Abs Immat Gran (auto) Absolute Neuts (auto) Absolute Nucleated RBC Nucleated RBC % (auto) VBG pH 7.49 H VBG pCO2 28 VBG pO2 84 VBG HCO3 21 L VBG O2 Saturation 93.0 VBG Base Excess -0.3 Anion Gap Estim Creat Clear Calc Estimated GFR POC Glucose Random Glucose Lactic Acid 1.6 Calcium Magnesium Total Bilirubin Direct Bilirubin AST ALT Alkaline Phosphatase Total Protein Albumin Lipase COVID-19 ([facility]) Negative COVID-19 Clin Com See Note Assessment and Plan (1) Abdominal pain: Status: Acute (2) Intractable nausea and vomiting: Status: Acute (3) Alkalosis, metabolic: Status: Acute (4) Watery diarrhea: Status: Acute (5) Acute hyperglycemia: Status: Acute Plan A 46 years old male with PMH of multiple myeloma on chemotherapy, diabetes type 2, CAD, CMP post AICD, CKD stage III, CVA among others who presented to the hospital complaining of nausea and vomiting for the last 3 days. Intractable nausea and vomiting, abdominal pain Secondary to chemotherapy side effects CT scan negative for any acute findings Gentle hydration Symptomatic treatment with Zofran, Benadryl and if needed Ativan or Haldol Advanced diet as tolerated Metabolic alkalosis ABG showing pH of 7.49 Secondary to vomiting should correct with general improvement Diarrhea Patient on Bactrim, to check C diff F negative C diff can use Imodium for functional diarrhea from chemotherapy Hyperglycemia secondary to diabetes Being on dexamethasone will cause that Continue Lantus home dose SSI next Lyme consider increasing the Lantus if needed Diabetic diet when appropriate Multiple myeloma On chemotherapy started on June Continue valacyclovir, Bactrim and fluconazole To follow with Oncology Cardiomyopathy Continue torsemide, carvedilol, aspirin and Plavix DVT PPX Heparin Quality Stroke Does the patient have a stroke diagnosis?: No VTE Prior VTE?: No VTE Risk Level:: Medical - moderate - high VTE Device Contraindication: Treatment Not Indicated VTE Drug Contraindication: N/A - Med Ordered
--- NOTE | 2021-08-30 16:52 | PHA.MEDREC ---
Pharmacy Consult ? Medication Reconciliation Pharmacy has completed the medication reconciliation.
[2021-08-30 16:53] LABS: Acetone, serum QL Negative (Negative)
[2021-08-30 17:05] LABS: B Type Natriuretic Peptide 246 pg/mL (<100)
[2021-08-30 17:10] LABS: Glucose, Whole Blood 178 mg/dL (60-115)
[2021-08-30 17:20] LABS: Appearance Urine CLEAR; Color Urine STRAW; Glucose Urine UA >=1000 MG/DL (NEG); Leukocyte Esterase Urine NEG (NEG); Nitrite Urine NEG (NEG); Specific Gravity - Urine <= 1.005 (1.005-1.025); UACC Culture Trigger NO; Urine Blood 1+ (NEG); Urine Ketones 5 MG/DL (NEG); Urine Protein 1+ MG/DL (NEG-TRACE)
[2021-08-30 17:40] LABS: RBC Urine 0-2 /HPF (0); Squamous Epithelial Cell Urine TRACE /LPF; WBC Urine 0 /HPF (0-4)
[2021-08-30] MEDS: Pantoprazole Sodium 40 MG/10 ML VIAL IVPUSH (17:46)
[2021-08-30] MEDS: ondansetron HCL 4 MG/2 ML VIAL IVPUSH (17:46)
[2021-08-30] MEDS: 0.9 % Sodium Chloride 1,000 ML 60 ML IVCONT (17:47)
[2021-08-30 17:52] VITALS: BP 140/73; PULSE 91; RESP 14; O2SAT 97
[2021-08-30] MEDS: Fluconazole in NaCl,Iso-Osm 100 MG in Container,Empty 0 ML 50 MG IV (18:46)
[2021-08-30 21:32] VITALS: BP 134/66; PULSE 90; RESP 16; TEMP 36.9; O2SAT 97
[2021-08-30 21:39] LABS: Glucose, Whole Blood 146 mg/dL (60-115)
[2021-08-30] MEDS: diphenhydrAMINE HCL 50 MG/ML VIAL 25 MG IVPUSH (23:17)
[2021-08-30] MEDS: Prochlorperazine Edisylate 10 MG/2 ML VIAL 5 MG IVPUSH (23:17)
[2021-08-30] MEDS: Gabapentin 300 MG CAPSULE 600 MG PO (23:17)
[2021-08-30] MEDS: Heparin Sodium,Porcine 5,000 UNIT/ML VIAL 5000 UNIT SUBCUT (23:17)
[2021-08-30] MEDS: carvediloL 12.5 MG TABLET PO (23:18)
[2021-08-30] MEDS: Docusate Sodium 100 MG CAPSULE PO (23:18)
[2021-08-30] MEDS: Amitriptyline HCl 25 MG TABLET PO (23:18)
[2021-08-30] MEDS: Atorvastatin Calcium 80 MG TABLET PO (23:18)
[2021-08-31] VITALS (8 sets, daily range): BP systolic 120–164; BP diastolic 69–91; PULSE 75–100; RESP 14–18; TEMP 36.2–37.1; O2SAT 96–100
[2021-08-31 03:10] LABS: Estimated Average Glucose 206 mg/dL; Hemoglobin A1c % 8.8 %
--- NOTE | 2021-08-31 07:15 | PC.NURSE ---
Received patient at 0610 to bed 11 - Patient denies N/V - requesting drink. No distress at this time. VSS.
[2021-08-31 07:18] LABS: Glucose, Whole Blood 211 mg/dL (60-115)
[2021-08-31] MEDS: Heparin Sodium,Porcine 5,000 UNIT/ML VIAL 5000 UNIT SUBCUT ×3 (07:55→22:21)
[2021-08-31] MEDS: Insulin Lispro 100 UNIT/ML 3 ML VIAL SUBCUT ×4 (07:56→20:44)
--- NOTE | 2021-08-31 08:02 | PC.NURSE ---
Pt resting at this time, A&Ox4, LCA, abd soft, non tender to palpation, BS + x 4, denies any N/V/D at this time. Ate breakfast with no difficulties. Pt ambulates independently. Call lin within reach. will continue to monitor.
[2021-08-31] MEDS: Fluticasone/Vilanterol 100/25 BLST.W.DEV 1 PUFF INHALE (08:26)
[2021-08-31] MEDS: Clopidogrel Bisulfate 75 MG TABLET PO (09:11)
[2021-08-31] MEDS: Sertraline HCL 100 MG TABLET PO (09:11)
[2021-08-31] MEDS: carvediloL 12.5 MG TABLET PO ×2 (09:11→20:43)
[2021-08-31] MEDS: Sertraline HCL 25 MG TABLET PO (09:11)
[2021-08-31] MEDS: Gabapentin 300 MG CAPSULE PO (09:11)
[2021-08-31] MEDS: Docusate Sodium 100 MG CAPSULE PO (09:11)
[2021-08-31] MEDS: Sulfamethox/Trimeth 800/160 TABLET 1 TAB PO (09:11)
[2021-08-31] MEDS: SITagliptin Phosphate 25 MG TABLET PO (09:11)
[2021-08-31] MEDS: diphenhydrAMINE HCL 50 MG/ML VIAL 25 MG IVPUSH ×3 (09:11→22:21)
[2021-08-31] MEDS: Insulin Glargine,Hum.rec.anlog 100 UNIT/ML 10 ML VIAL 36 UNIT SUBCUT (09:12)
[2021-08-31] MEDS: Torsemide 20 MG TABLET 60 MG PO ×2 (09:12→20:43)
--- NOTE | 2021-08-31 10:36 | MHC.CM.PN ---
CM MET WITH PT WITH THE ASSISTANCE OF [facility] PT REPORTS HE LIVES WITH HIS GF AND SON HE REPORTS HE IS INDEPENDENT WITH CARE AND HAS NO SERVICES PT REPORTS HE HAS A CPAP AND NEBULIZER AT HOME PT HAS A HCP ON FILE AND HIS PCP IS CESAR ARGUELLO PT REPORTS HE IS VACCINATED AGAINST COVID-19 WITH [facility] X 2 CURRENT DC PLAN IS HOME WITH NO SERVICES FAMILY TO TRANSPORT
--- NOTE | 2021-08-31 10:40 | P.PNIM_ITS ---
Subjective Subjective Date of Service: 08/31/21 Interval History: the patient was seen and evaluated this morning Laying in bed, feels better with less nausea and vomiting Still having diarrhea Denies any fever, chills or chest pain No reported other overnight events. Review of Systems No fever, chills but reports generalized weakness No chest pain, palpitation No shortness of breath or coughing Abdominal pain improved but still have episodes of diarrhea No urinary symptoms No new rash or wounds Physical Exam Vital Signs: Vital Signs: Last Vital Signs Temp 98.0 F 08/31/21 09:00 Pulse 100 08/31/21 09:00 Resp 17 08/31/21 09:00 BP 164/80 H 08/31/21 09:00 Pulse Ox 99 08/31/21 09:00 BMI result Body Mass Index 26.6 Const: Other: Constitutional : Alert, oriented, less anxious and distressed Neck : Normal inspection, Supple Cardiovascular : RRR, S1 S2, no lower extremity edema Respiratory : Fair bilateral air entry, no crackles, no wheezes or rhonchi Gastrointestinal: soft, lax, Normal bowel sounds, Non tender overall mildly epigastric tenderness with deep palpation Skin : Warm, Dry Neurological : Alert & oriented x3, No focal deficit Objective Data Active Medications Acetaminophen (Acetaminophen 325 Mg Tablet) 650 mg PO Q6H PRN PRN Reason: Pain, Mild (Pain Scale 1-3) Albuterol Sulfate (Albuterol Sulfate 90 Mcg 8 Gm Inhaler) 2 puff INHALE Q4H PRN PRN Reason: Cough Amitriptyline HCl (Amitriptyline Hcl 25 Mg Tablet) 25 mg PO BEDTIME [facility] Last Admin: 08/30/21 23:18 Dose: 25 mg Documented by: AJCKI Atorvastatin Calcium (Atorvastatin Calcium 80 Mg Tablet) 80 mg PO BEDTIME [facility] Last Admin: 08/30/21 23:18 Dose: 80 mg Documented by: JACKI Azelastine HCl (Azelastine Hcl Nasal 137 Mcg/[place] 30 Ml) 2 spray NOSTRIL-B BID [facility] Last Admin: 08/30/21 23:19 Dose: Not Given Documented by: JACKI Non-Admin Reason: Med Not Available Carvedilol (Carvedilol 12.5 Mg Tablet) 12.5 mg PO BID [facility]; Protocol Last Admin: 08/31/21 09:11 Dose: 12.5 mg Documented by: PHYLLIS Clopidogrel Bisulfate (Clopidogrel Bisulfate 75 Mg Tablet) 75 mg PO DAILY [facility] Last Admin: 08/31/21 09:11 Dose: 75 mg Documented by: PHYLLIS Diphenhydramine HCl (Diphenhydramine Hcl 50 Mg/Ml Vial) 25 mg IVPUSH Q6H [facility] Last Admin: 08/31/21 09:11 Dose: 25 mg Documented by: PHYLLIS Docusate Sodium (Docusate Sodium 100 Mg Capsule) 100 mg PO BID [facility] Last Admin: 08/31/21 09:11 Dose: 100 mg Documented by: PHYLLIS Fluticasone/Vilanterol (Fluticasone/Vilanterol 100/25 Blst.W.Dev) 1 puff INHALE RDAILY [facility] Last Admin: 08/31/21 08:26 Dose: 1 puff Documented by: LUI Gabapentin (Gabapentin 300 Mg Capsule) 600 mg PO BEDTIME [facility] Last Admin: 08/30/21 23:17 Dose: 600 mg Documented by: JACKI Gabapentin (Gabapentin 300 Mg Capsule) 300 mg PO DAILY [facility] Last Admin: 08/31/21 09:11 Dose: 300 mg Documented by: PHYLLIS Heparin Sodium (Porcine) (Heparin Sodium,Porcine 5,000 Unit/Ml Vial) 5,000 unit SUBCUT Q8H [facility] Last Admin: 08/31/21 07:55 Dose: 5,000 unit Documented by: PHYLLIS Fluconazole 100 mg/ IV (Miscellaneous Supplies) 50 mls @ 50 mls/hr IV Q24H [facility] Last Admin: 08/30/21 18:46 Dose: 50 mls/hr Documented by: COOPEB Insulin Glargine (Insulin Glargine,Hum.Rec.Anlog 100 Unit/Ml 10 Ml Vial) 36 unit SUBCUT DAILY [facility] Last Admin: 08/31/21 09:12 Dose: 36 unit Documented by: PHYLLIS Insulin Human Lispro (Insulin Lispro 100 Unit/Ml 3 Ml Vial) 0 unit SUBCUT QIDACHS [facility]; Protocol Last Admin: 08/31/21 07:56 Dose: 4 unit Documented by: PHYLLIS Lidocaine/Diphenhydr/Alum/Mg/Simeth (Mag&Al/Sim/Diphenhyd/Lidocaine 10 Ml Oral.Susp) 10 ml PO Q4H PRN; Protocol PRN Reason: Mouth Sore Pain Ondansetron HCl (Ondansetron Hcl 4 Mg/2 Ml Vial) 4 mg IVPUSH Q8H PRN PRN Reason: Nausea and Vomiting Last Admin: 08/30/21 17:46 Dose: 4 mg Documented by: ANN Pharmacy Consult (Consult Rx Perform Med Rec) 1 each MISCELLANE ONCE PRN PRN Reason: Consult order Sertraline HCl (Sertraline Hcl 25 Mg Tablet) 25 mg PO DAILY [facility] Last Admin: 08/31/21 09:11 Dose: 25 mg Documented by: PHYLLIS Sertraline HCl (Sertraline Hcl 100 Mg Tablet) 100 mg PO DAILY [facility] Last Admin: 08/31/21 09:11 Dose: 100 mg Documented by: PHYLLIS Sitagliptin Phosphate (Sitagliptin Phosphate 25 Mg Tablet) 25 mg PO DAILY [facility] Last Admin: 08/31/21 09:11 Dose: 25 mg Documented by: PHYLLIS Sodium Chloride (0.9 % Sodium Chloride Flush 3 Ml Syringe) 3 ml IVFLUSH QSHIFT [facility] Last Admin: 08/31/21 09:12 Dose: Not Given Documented by: PHYLLIS Non-Admin Reason: IV Running Tizanidine HCl (Tizanidine Hcl 4 Mg Tablet) 4 mg PO BEDTIME PRN PRN Reason: muscle spasm Torsemide (Torsemide 20 Mg Tablet) 60 mg PO BID [facility]; Protocol Last Admin: 08/31/21 09:12 Dose: 60 mg Documented by: PHYLLIS Trimethoprim/Sulfamethoxazole (Sulfamethox/Trimeth 800/160 Tablet) 1 tab PO DAILY [facility] Last Admin: 08/31/21 09:11 Dose: 1 tab Documented by: PHYLLIS Valacyclovir HCl (Valacycyclovir Hcl 500 Mg Tablet) 500 mg PO DAILY [facility] Last Admin: 08/31/21 09:11 Dose: 500 mg Documented by: PHYLLIS Labs CBC & Chem 7: 08/30/21 15:00 08/30/21 15:00 Labs: Laboratory Results - last 24 hr 08/30/21 08/30/21 08/30/21 14:15 15:00 15:00 MCV 95.1 MCH 32.4 MCHC 34.1 RDW 15.2 Plt Count 263 MPV 10.4 Immature Gran % (Auto) 0.4 Neut % (Auto) 82.7 H Lymph % (Auto) 8.4 L [place] % (Auto) 7.5 Eos % (Auto) 1.0 Baso % (Auto) 0.0 Lymph # (Auto) 0.8 L [place] # (Auto) 0.8 Eos # (Auto) 0.1 Baso # (Auto) 0.0 Abs Immat Gran (auto) 0.04 H Absolute Neuts (auto) 8.3 Absolute Nucleated RBC 0.000 Nucleated RBC % (auto) 0.0 VBG pH VBG pCO2 VBG pO2 VBG HCO3 VBG O2 Saturation VBG Base Excess Anion Gap 18 Estim Creat Clear Calc 39.3 Estimated GFR 33 POC Glucose 400 H* Random Glucose 423 H* Estimat Average Glucose Hemoglobin A1c % Lactic Acid Calcium 9.6 Magnesium 1.8 Total Bilirubin 0.6 Direct Bilirubin 0.2 AST 30 ALT 28 Alkaline Phosphatase 72 B-Natriuretic Peptide Total Protein 6.8 Albumin 4.2 Lipase 42 Urine Color Urine Appearance Urine pH Ur Specific [place] Urine Protein Urine Glucose (UA) Urine Ketones Urine Blood Urine Nitrite Ur Leukocyte Esterase Urine RBC Urine WBC Ur Squamous Epith Cells Urine Bacteria Acetone, Qual Negative COVID-19 ([facility]) COVID-19 Clin Com 08/30/21 08/30/21 08/30/21 15:00 15:00 15:00 MCV MCH MCHC RDW Plt Count MPV Immature Gran % (Auto) Neut % (Auto) Lymph % (Auto) [place] % (Auto) Eos % (Auto) Baso % (Auto) Lymph # (Auto) [place] # (Auto) Eos # (Auto) Baso # (Auto) Abs Immat Gran (auto) Absolute Neuts (auto) Absolute Nucleated RBC Nucleated RBC % (auto) VBG pH VBG pCO2 VBG pO2 VBG HCO3 VBG O2 Saturation VBG Base Excess Anion Gap Estim Creat Clear Calc Estimated GFR POC Glucose Random Glucose Estimat Average Glucose 206 Hemoglobin A1c % 8.8 Lactic Acid 1.6 Calcium Magnesium Total Bilirubin Direct Bilirubin AST ALT Alkaline Phosphatase B-Natriuretic Peptide Total Protein Albumin Lipase Urine Color Urine Appearance Urine pH Ur Specific [place] Urine Protein Urine Glucose (UA) Urine Ketones Urine Blood Urine Nitrite Ur Leukocyte Esterase Urine RBC Urine WBC Ur Squamous Epith Cells Urine Bacteria Acetone, Qual COVID-19 ([facility]) Negative COVID-19 Clin Com See Note 08/30/21 08/30/21 08/30/21 15:01 15:03 17:03 MCV MCH MCHC RDW Plt Count MPV Immature Gran % (Auto) Neut % (Auto) Lymph % (Auto) [place] % (Auto) Eos % (Auto) Baso % (Auto) Lymph # (Auto) [place] # (Auto) Eos # (Auto) Baso # (Auto) Abs Immat Gran (auto) Absolute Neuts (auto) Absolute Nucleated RBC Nucleated RBC % (auto) VBG pH 7.49 H VBG pCO2 28 VBG pO2 84 VBG HCO3 21 L VBG O2 Saturation 93.0 VBG Base Excess -0.3 Anion Gap Estim Creat Clear Calc Estimated GFR POC Glucose 178 H Random Glucose Estimat Average Glucose Hemoglobin A1c % Lactic Acid Calcium Magnesium Total Bilirubin Direct Bilirubin AST ALT Alkaline Phosphatase B-Natriuretic Peptide 246 H Total Protein Albumin Lipase Urine Color Urine Appearance Urine pH Ur Specific [place] Urine Protein Urine Glucose (UA) Urine Ketones Urine Blood Urine Nitrite Ur Leukocyte Esterase Urine RBC Urine WBC Ur Squamous Epith Cells Urine Bacteria Acetone, Qual COVID-19 ([facility]) COVID-19 Clin Com 08/30/21 08/30/21 08/31/21 17:06 21:34 07:15 MCV MCH MCHC RDW Plt Count MPV Immature Gran % (Auto) Neut % (Auto) Lymph % (Auto) [place] % (Auto) Eos % (Auto) Baso % (Auto) Lymph # (Auto) [place] # (Auto) Eos # (Auto) Baso # (Auto) Abs Immat Gran (auto) Absolute Neuts (auto) Absolute Nucleated RBC Nucleated RBC % (auto) VBG pH VBG pCO2 VBG pO2 VBG HCO3 VBG O2 Saturation VBG Base Excess Anion Gap Estim Creat Clear Calc Estimated GFR POC Glucose 146 H 211 H Random Glucose Estimat Average Glucose Hemoglobin A1c % Lactic Acid Calcium Magnesium Total Bilirubin Direct Bilirubin AST ALT Alkaline Phosphatase B-Natriuretic Peptide Total Protein Albumin Lipase Urine Color STRAW Urine Appearance CLEAR Urine pH 7.0 Ur Specific [place] <= 1.005 Urine Protein 1+ H Urine Glucose (UA) >=1000 H Urine Ketones 5 Urine Blood 1+ H Urine Nitrite NEG Ur Leukocyte Esterase NEG Urine RBC 0-2 Urine WBC 0 Ur Squamous Epith Cells TRACE Urine Bacteria NONE Acetone, Qual COVID-19 ([facility]) COVID-19 Clin Com Assessment and Plan (1) Intractable nausea and vomiting: Status: Acute (2) Alkalosis, metabolic: Status: Acute (3) Watery diarrhea: Status: Acute (4) Acute hyperglycemia: Status: Acute Plan A 46 years old male with PMH of multiple myeloma on chemotherapy, diabetes type 2, CAD, CMP post AICD, CKD stage III, CVA among others who presented to the hospital complaining of nausea and vomiting for the last 3 days. Intractable nausea and vomiting, abdominal pain Secondary to chemotherapy side effects CT scan negative for any acute findings Improving Hold IVF Symptomatic treatment with Zofran, Benadryl and if needed Ativan Advanced diet as tolerated Diarrhea Patient on Bactrim, to check C diff F negative C diff can use Imodium for functional diarrhea from chemotherapy Hyperglycemia secondary to diabetes Being on dexamethasone will cause that Continue Lantus home dose SSI consider increasing the Lantus if needed Diabetic diet when appropriate Multiple myeloma On chemotherapy started on June Continue valacyclovir, Bactrim and fluconazole To follow with Oncology , hold next chemotherapy session on Tuesday Cardiomyopathy Continue torsemide, carvedilol, aspirin and Plavix DVT PPX Heparin Quality Stroke Does the patient have a stroke diagnosis?: No VTE Prior VTE?: No VTE Risk Level:: Medical - moderate - high VTE Device Contraindication: Treatment Not Indicated VTE Drug Contraindication: N/A - Med Ordered
[2021-08-31 11:30] LABS: Hematocrit 22.6 % (42.0-52.0); Hemoglobin 7.4 g/dl (14.0-18.0); Mean Corpuscular HGB Conc 32.7 g/dl (31.0-36.0); Mean Corpuscular Volume 97.8 fL (80.0-98.0); Mean Platelet Volume 10.4 fL (9.4-12.4); Platelet Count 252 X10*3/uL (160-400); Red Blood Count 2.31 X10*6/uL (4.60-5.80); Red Cell Distribution Width 15.5 % (11.0-16.0); White Blood Count 7.5 X10*3/uL (4.8-10.8)
[2021-08-31 11:45] LABS: Anion Gap 11 (12-20); Blood Urea Nitrogen 24 mg/dL (9-16); Calcium 8.2 mg/dL (8.4-10.2); Carbon Dioxide 21 mmol/L (22-29); Chloride 111 mmol/L (96-108); Creatinine Clr Calc Pharmacy 52.3; Estimated Glomerular Filt Rate 46; Glucose Random 257 mg/dL (60-115); Potassium 3.6 mmol/L (3.3-5.1); Sodium 139 mmol/L (135-145)
[2021-08-31 13:06] LABS: Glucose, Whole Blood 255 mg/dL (60-115)
[2021-08-31 13:28] LABS: Leukocytes Stool Qualitative NEGATIVE (NEGATIVE)
[2021-08-31] MEDS: Loperamide HCl 2 MG CAPSULE PO (13:51)
[2021-08-31] MEDS: Acetaminophen 325 MG TABLET 650 MG PO ×2 (13:54→19:59)
[2021-08-31 14:05] LABS: CDiff Gene PCR POSITIVE (Negative)
[2021-08-31 15:40] LABS: CDIFF Internal ctrl Dots and bkg OK (V); CDiff Toxin Negative (Negative)
[2021-08-31] MEDS: 0.9 % Sodium Chloride Flush 3 ML SYRINGE IVFLUSH ×2 (16:36→20:44)
[2021-08-31 16:38] LABS: Glucose, Whole Blood 235 mg/dL (60-115)
[2021-08-31] MEDS: Fluconazole in NaCl,Iso-Osm 100 MG in Container,Empty 0 ML 50 MG IV (18:24)
[2021-08-31 20:24] LABS: Glucose, Whole Blood 302 mg/dL (60-115)
[2021-08-31] MEDS: Amitriptyline HCl 25 MG TABLET PO (20:43)
[2021-08-31] MEDS: Atorvastatin Calcium 80 MG TABLET PO (20:43)
[2021-08-31] MEDS: Gabapentin 300 MG CAPSULE 600 MG PO (20:43)
[2021-08-31] MEDS: Melatonin 3 MG TABLET 6 MG PO (21:11)
[2021-09-01] VITALS: BP 114/72; PULSE 71; RESP 18; TEMP 36.2; O2SAT 99
[2021-09-01 03:58] VITALS: BP 126/63; PULSE 75; RESP 18; TEMP 36.2; O2SAT 96
[2021-09-01 06:05] LABS: Hemoglobin 8.2 g/dl (14.0-18.0); Mean Corpuscular HGB Conc 32.8 g/dl (31.0-36.0); Mean Corpuscular Volume 97.7 fL (80.0-98.0); Mean Platelet Volume 9.9 fL (9.4-12.4); Platelet Count 299 X10*3/uL (160-400); Red Blood Count 2.56 X10*6/uL (4.60-5.80); Red Cell Distribution Width 15.3 % (11.0-16.0); White Blood Count 7.4 X10*3/uL (4.8-10.8)
[2021-09-01 06:32] LABS: Anion Gap 16 (12-20); Blood Urea Nitrogen 31 mg/dL (9-16); Carbon Dioxide 24 mmol/L (22-29); Chloride 105 mmol/L (96-108); Creatinine Clr Calc Pharmacy 37.4; Estimated Glomerular Filt Rate 31; Glucose Random 218 mg/dL (60-115); Potassium 3.9 mmol/L (3.3-5.1); Sodium 141 mmol/L (135-145)
[2021-09-01 07:13] VITALS: BP 166/90; PULSE 70; RESP 18; TEMP 36.5; O2SAT 100
[2021-09-01 07:44] LABS: Glucose, Whole Blood 225 mg/dL (60-115)
[2021-09-01] MEDS: ondansetron HCL 4 MG/2 ML VIAL IVPUSH (08:01)
[2021-09-01] MEDS: Heparin Sodium,Porcine 5,000 UNIT/ML VIAL 5000 UNIT SUBCUT (08:04)
[2021-09-01] MEDS: 0.9 % Sodium Chloride Flush 3 ML SYRINGE IVFLUSH (08:04)
[2021-09-01] MEDS: Docusate Sodium 100 MG CAPSULE PO (08:05)
[2021-09-01] MEDS: Sertraline HCL 100 MG TABLET PO (08:05)
[2021-09-01] MEDS: Gabapentin 300 MG CAPSULE PO (08:05)
[2021-09-01] MEDS: Sertraline HCL 25 MG TABLET PO (08:05)
[2021-09-01] MEDS: Clopidogrel Bisulfate 75 MG TABLET PO (08:05)
[2021-09-01] MEDS: Sulfamethox/Trimeth 800/160 TABLET 1 TAB PO (08:05)
[2021-09-01] MEDS: SITagliptin Phosphate 25 MG TABLET PO (08:05)
[2021-09-01] MEDS: carvediloL 12.5 MG TABLET PO (08:05)
[2021-09-01] MEDS: Torsemide 20 MG TABLET 60 MG PO (08:05)
[2021-09-01] MEDS: Insulin Glargine,Hum.rec.anlog 100 UNIT/ML 10 ML VIAL 36 UNIT SUBCUT (08:06)
[2021-09-01] MEDS: Insulin Lispro 100 UNIT/ML 3 ML VIAL SUBCUT ×2 (08:06→11:38)
[2021-09-01] MEDS: Fluticasone/Vilanterol 100/25 BLST.W.DEV 1 PUFF INHALE (08:11)
[2021-09-01 08:13] VITALS: PULSE 71; RESP 20; O2SAT 98
[2021-09-01] MEDS: diphenhydrAMINE HCL 50 MG/ML VIAL 25 MG IVPUSH (09:06)
[2021-09-01] MEDS: Ketorolac Tromethamine 15 MG/ML VIAL IVPUSH (09:06)
[2021-09-01 10:56] VITALS: BP 135/77; PULSE 71; RESP 18; TEMP 36.7; O2SAT 99
--- NOTE | 2021-09-01 11:16 | PM.DS ---
DS: Providers Provider Date of Service: 09/01/21 Date of admission: 08/30/21 17:21 Primary care physician: Guido Burch III, MD DS: Diagnosis Discharge Diagnosis (1) Intractable nausea and vomiting: Status: Acute (2) Alkalosis, metabolic: Status: Acute (3) Watery diarrhea: Status: Acute (4) Acute hyperglycemia: Status: Acute (5) Clostridium difficile carrier: Status: Acute DS: Summary Hospital Course Hospital Course: Admission note HPI A 46 years old male with PMH of multiple myeloma on chemotherapy, diabetes type 2, CAD, CMP post AICD, CKD stage III, CVA among others who presented to the hospital complaining of nausea and vomiting for the last 3 days.? The patient reports that he had chemotherapy session last Tuesday and since then his started feeding none nausea vomiting and decreased oral intake with associated diarrhea that developed over the last day.? He has been the emergency 3 times since Tuesday with the same problem that is not resolving.? He denies any fever, chills, cough, shortness of breath, headache or change in urinary symptoms.? He reports abdominal pain mainly after the vomiting.? Reported that he is feeling very weak and dizzy and he cannot eat stand because of that.? No sick contacts at home and no one else having similar symptoms. in the emergency was noted to have significantly elevated blood sugar levels with mildly elevated BNP. Started on symptomatic measures as Oncology team conducted on recommending admitting the patient for evaluation follow-up.? Hospital Course The patient was admitted for intractable nausea and vomiting with associated abdominal pain. CT scan was negative for any acute findings. Believed to be secondary to chemotherapy side effects. Treated with IV fluid, IV Zofran and Benadryl with good response over the course of hospital stay as he was able to tolerate diet. Diarrhea was evaluated with no WBCs seen but positive for C diff gene with no evidence of toxin. Diarrhea resolved the next day and believed to be secondary to chemotherapy as well. Discussed with Infectious Disease who recommended starting the patient on vancomycin 125 mg daily for secondary prevention of C diff infection. Discussed with Oncology team who recommended holding chemotherapy for this week and for the patient to follow-up next week. Use Zofran 3 times a day half an hour before meals for the next few days then as needed To use Imodium for chemo therapy related diarrhea Start vancomycin 125 mg daily With advised to come back to the hospital for any worsening abdominal pain, fever and diarrhea Time Spent with Patient Time attestation: Total time spent providing and/or coordinating discharge services: Discharge coordination time: Greater than 30 minutes Quality: Stroke Does the patient have a stroke diagnosis?: No Physical Exam Vital Signs: Vital Signs: Last Vital Signs Temp 98.1 F 09/01/21 10:56 Pulse 71 09/01/21 10:56 Resp 18 09/01/21 10:56 BP 135/77 09/01/21 10:56 Pulse Ox 99 09/01/21 10:56 BMI result Body Mass Index 26.6 Const: Other: Constitutional : Alert, oriented, not in distress Neck : Normal inspection, Supple Cardiovascular : RRR, S1 S2, no lower extremity edema Respiratory : Fair bilateral air entry, no crackles, no wheezes or rhonchi Gastrointestinal: soft, lax, Normal bowel sounds, Non tender Skin : Warm, Dry Neurological : Alert & oriented x3, No focal deficit DS: Data Data Completed and Pending Completed studies during hospitalization [Text1]: Procedures Transfusion of Nonautologous Red Blood Cells into Peripheral Vein, Percutaneous Approach (02/04/21) Labs on day of discharge: Laboratory Results - last 24 hr 08/31/21 08/31/21 08/31/21 10:38 10:38 12:41 WBC 7.5 RBC 2.31 L Hgb 7.4 L Hct 22.6 L MCV 97.8 MCH 32.0 MCHC 32.7 RDW 15.5 Plt Count 252 MPV 10.4 Absolute Nucleated RBC 0.000 Nucleated RBC % (auto) 0.0 Sodium 139 Potassium 3.6 Chloride 111 H Carbon Dioxide 21 L Anion Gap 11 L BUN 24 H Creatinine 1.63 H Estim Creat Clear Calc 52.3 Estimated GFR 46 POC Glucose Random Glucose 257 H D Calcium 8.2 L D Stool Leukocytes, Qual NEGATIVE C. difficile Tox B Gene C. difficile Toxin A&B C. difficile Interpret 08/31/21 08/31/21 08/31/21 12:41 13:03 16:29 WBC RBC Hgb Hct MCV MCH MCHC RDW Plt Count MPV Absolute Nucleated RBC Nucleated RBC % (auto) Sodium Potassium Chloride Carbon Dioxide Anion Gap BUN Creatinine Estim Creat Clear Calc Estimated GFR POC Glucose 255 H 235 H Random Glucose Calcium Stool Leukocytes, Qual C. difficile Tox B Gene POSITIVE A* C. difficile Toxin A&B Negative C. difficile Interpret SEE NOTE 08/31/21 09/01/21 09/01/21 20:17 05:41 05:41 WBC 7.4 RBC 2.56 L Hgb 8.2 L Hct 25.0 L MCV 97.7 MCH 32.0 MCHC 32.8 RDW 15.3 Plt Count 299 MPV 9.9 Absolute Nucleated RBC 0.000 Nucleated RBC % (auto) 0.0 Sodium 141 Potassium 3.9 Chloride 105 Carbon Dioxide 24 Anion Gap 16 BUN 31 H Creatinine 2.28 H Estim Creat Clear Calc 37.4 Estimated GFR 31 POC Glucose 302 H Random Glucose 218 H Calcium 9.0 D Stool Leukocytes, Qual C. difficile Tox B Gene C. difficile Toxin A&B C. difficile Interpret 09/01/21 07:12 WBC RBC Hgb Hct MCV MCH MCHC RDW Plt Count MPV Absolute Nucleated RBC Nucleated RBC % (auto) Sodium Potassium Chloride Carbon Dioxide Anion Gap BUN Creatinine Estim Creat Clear Calc Estimated GFR POC Glucose 225 H Random Glucose Calcium Stool Leukocytes, Qual C. difficile Tox B Gene C. difficile Toxin A&B C. difficile Interpret Discharge Plan Discharge Patient Disposition: Home, Self-Care Discharge Diagnosis: Intractable nausea and vomiting Diarrhea Referrals: Guido Burch III, MD [Primary Care Provider] - 1 Week Discharge Medications: New loperamide 2 mg Capsule 2 mg PO Q4H PRN (Reason: Diarrhea) Qty: 30 0RF ondansetron 4 mg tablet,disintegrating 4 mg PO Q8H PRN (Reason: nausea and vomiting) Qty: 30 0RF Firvanq 25 mg/mL recon soln 125 mg PO DAILY 30 Days Qty: 150 2RF Continued carvedilol 12.5 mg tablet 12.5 mg PO BID 90 Days Qty: 180 1RF sertraline 100 mg tablet 100 tab PO DAILY 0RF Rx Instructions: one 25 mg tab + one 100 mg tab = 125 mg daily dose ondansetron HCl [Zofran] 4 mg Tablet 8 mg PO Q8H PRN (Reason: Nausea) Qty: 60 5RF aspirin 325 mg Tablet 325 mg PO DAILY Qty: 30 4RF sulfamethoxazole-trimethoprim [Bactrim DS] 800-160 mg Tablet 1 tab PO DAILY Qty: 60 5RF valacyclovir [Valtrex] 500 mg Tablet 500 mg PO DAILY Qty: 60 6RF dexamethasone [Decadron] 4 mg Tablet 20 mg PO DAILY Qty: 100 0RF Rx Instructions: TAKE 20 MG P.O. DAYS 1 &2 WEEKLY, WITH THE VELCADE. fluconazole [Diflucan] 100 mg Tablet 100 mg PO DAILY Qty: 7 4RF Magic Mouthwash Diphen/Lido/Antacid 1:1:1 240 mL Suspension 10 ml PO QID Qty: 240 4RF Rx Instructions: Lidocaine Viscous 2 % 80mL; diphenhydramine 12.5 mg/5 mL 80mL; aluminum-mag hydrox-simeth [id number]/5mL 80mL Revlimid 15 mg Capsule 15 mg PO DAILY Qty: 14 6RF Rx Instructions: swallow whole with glass of water; do not open, crush, chew , break, or dissolve fluticasone propion-salmeterol 250-50 mcg/dose Blister With Device 1 inh INHALATION Q12H 0RF gabapentin 300 mg Capsule 600 mg PO BEDTIME 0RF azelastine 137 mcg (0.1 %) Aerosol,[place] 2 spray INTRANASAL BID 0RF insulin lispro [Humalog KwikPen Insulin] 100 unit/mL Insulin Pen 10 - 15 unit SUBCUT TID 0RF (DME) pen needle, diabetic [BD Ultra-Fine Short Pen Needle] 31 gauge x 5/16 needle subcut QID 0RF fenofibrate nanocrystallized 145 mg tablet 1 tab PO DAILY 0RF tizanidine 4 mg tablet 1 tab PO BEDTIME PRN (Reason: muscle spasm) 0RF torsemide 20 mg tablet 60 mg PO BID 30 Days Qty: 180 5RF clopidogrel 75 mg tablet 75 mg PO DAILY 0RF atorvastatin 80 mg tablet 80 mg PO BEDTIME 0RF albuterol sulfate 90 mcg/actuation HFA aerosol inhaler 2 puff inhalation Q4H PRN (Reason: Cough) 0RF docusate sodium 100 mg capsule 100 mg PO BID 0RF Rx Instructions: hold for diarrhea pantoprazole 40 mg tablet,delayed release (DR/EC) 40 mg PO DAILY 0RF sertraline 25 mg tablet 25 mg PO DAILY 0RF Rx Instructions: one 25 mg tab + one 100 mg tab = 125 mg daily dose amitriptyline 25 mg tablet 25 mg PO BEDTIME 0RF gabapentin [Neurontin] 300 mg capsule 300 mg PO DAILY 0RF Lantus Solostar U-100 Insulin 100 unit/mL (3 mL) insulin pen 36 unit subcut QAM 0RF Januvia 25 mg tablet 25 mg PO DAILY 0RF Discharge Orders: Discharge Order (Routine); Ordered 09/01/21 Ordered By: Abran Wright Diet: advance to usual diet Activity on Discharge: As tolerated Stand Alone Forms: Patient Portal Discharge page Care Plan Goals: Read below Health Concerns: Read below Plan of Treatment: Read below Assessment: You were admitted to the hospital for evaluation of nausea, vomiting and episodes of diarrhea. We believe they are related to chemotherapy side effects. Treated with IV fluid, IV nausea medication with good response as you became able severity diet. Diarrhea workup showed an evidence of C diff carier status with no active infection. Discussed with Infectious Disease who recommended starting you on vancomycin 125 mg daily for prevention of C diff infection. Use Zofran 3 times a day half an hour before meals for the next few days then as needed To use Imodium for chemo therapy related diarrhea Start vancomycin 125 mg daily please come back to the hospital for any worsening abdominal pain, fever and diarrhea
[2021-09-01 11:19] LABS: Glucose, Whole Blood 385 mg/dL (60-115)
--- NOTE | 2021-09-01 11:21 | MHC.CM.PN ---
Addendum entered by Trxiie Sam 09/01/21 11:27: patient also will aelf resume his services for cpap . spoke with his she confirmed she will transport / Original Note: nurse family caseworker note electronic medical record rerivewed along with case disucssed with hospitlaist and patient he will be dischagred home today with no services discharge plan home with no srvices , to proivde transportation home
[2021-09-01] MEDS: vancomycin HCL 125 MG CAPSULE PO (11:38)
== END 2021-09-01 14:17 | disposition home or self-care (01) | DRG 249 ==
LOC: HO.ED 16:47 → HO.EDOVER 17:35 → HO.S3 08-31 15:30
PROVIDERS: Physician Assistant; Admitting Provider Student in an Organized Health Care Education/Training Program; Emergency Provider Emergency Medicine Emergency Medical Services; PCP Internal Medicine; Visit Provider Student in an Organized Health Care Education/Training Program
DX: K52.1 Toxic gastroenteritis and colitis (principal); E87.3 Alkalosis; C90.00 Multiple myeloma not having achieved remission; E11.22 Type 2 diabetes mellitus with diabetic chronic kidney disease; E11.65 Type 2 diabetes mellitus with hyperglycemia; R11.2 Nausea with vomiting, unspecified; I25.10 Atherosclerotic heart disease of native coronary artery without angina pectoris; Z95.810 Presence of automatic (implantable) cardiac defibrillator; I25.5 Ischemic cardiomyopathy; Z86.73 Personal history of transient ischemic attack (TIA), and cerebral infarction without residual deficits; Z20.822 Contact with and (suspected) exposure to COVID-19; Z95.1 Presence of aortocoronary bypass graft; T45.1X5A Adverse effect of antineoplastic and immunosuppressive drugs, initial encounter; I12.9 Hypertensive chronic kidney disease with stage 1 through stage 4 chronic kidney disease, or unspecified chronic kidney disease; N18.9 Chronic kidney disease, unspecified; Z79.4 Long term (current) use of insulin; Z79.02 Long term (current) use of antithrombotics/antiplatelets; Z79.51 Long term (current) use of inhaled steroids; Z79.82 Long term (current) use of aspirin; Z79.899 Other long term (current) drug therapy
CPT/HCPCS: 36415; 80048; 80076; 81001; 82009; 82803; 82947; 83036; 83605; 83690; 83735; 83880; 84484; 85025; 85027; 87045; 87046; 87324; 87493; 87635; 89055; 93005; 94640; 96361; 96374; 96375; 99218; 99285; 99291; J1200; J1450; J1885; J2405; J2550

== ENCOUNTER → 2021-11-06 08:30 | Outpatient (BNVA) | payer OTHER, SELFPAY | PROVIDERS: PCP Internal Medicine | DX: R39.89 Other symptoms and signs involving the genitourinary system (principal) | CPT/HCPCS: 51798; 99202 ==

== ENCOUNTER → 2021-11-13 12:59 | Outpatient (BNVA) | payer OTHER, SELFPAY | PROVIDERS: PCP Internal Medicine; Visit Provider Urology | DX: N39.0 Urinary tract infection, site not specified (principal) | CPT/HCPCS: 52000; 99212 ==

== ENCOUNTER 2021-11-27 09:23 | Inpatient (IN) | payer OTHER, SELFPAY ==
--- NOTE | ~2021-11-27 | CT_ITS ---
EXAMINATION: CT ABDOMEN AND PELVIS WITHOUT CONTRAST CLINICAL INFORMATION: Lower abdominal pain and vomiting. COMPARISON: CT abdomen/pelvis from 08/30/2021. TECHNIQUE: Multidetector volumetric imaging was performed from the superior aspect of the liver through the pubic symphysis. Sagittal and coronal reformatted images were obtained on the technologist's workstation. This CT examination was performed using dose optimization techniques as appropriate, variously including the following: *Automated exposure control *Adjustment of mA and/or kV according to patient size (this includes techniques or standardized protocols for targeted exams where dose is matched to indication/reason for exam; i.e. extremities or head) *Use of iterative reconstruction technique DLP: 738 mGy-cm FINDINGS: LUNG BASES: Implantable cardioverter defibrillator generator of the left lateral chest wall with single lead coursing lateral to the left sternum and partially included in the [id number]. The peripheral opacity of rounded atelectasis in the posterior left lower lobe is unchanged compared to 08/30/2021. There is atherosclerotic calcification of coronary arteries. The visualized lower sternotomy wires are intact. The blood pool is relatively hypodense compared to myocardium. This suggests that there is likely anemia. LIVER: Diffuse hepatic steatosis. GALLBLADDER AND BILIARY TREE: Gallbladder is surgically absent. No dilated bile ducts. PANCREAS: Normal. No edema, pancreatic ductal dilatation or mass. SPLEEN: Normal. ADRENAL GLANDS: Normal. KIDNEYS AND URETERS: The kidneys have normal size and cortical thickness. No perinephric fluid collection. No urolithiasis or hydroureteronephrosis. BLADDER: Normal. No calculi or wall thickening. BOWEL AND PERITONEUM: Stomach is unremarkable. No dilated loops of bowel. The appendix is normal. No overt bowel wall thickening or mesenteric fat stranding. No ascites or pneumoperitoneum. ABDOMINAL WALL: Again noted are patchy opacities in subcutaneous tissues of the abdominal wall compatible with sequela of medication injections. VASCULATURE: Atherosclerotic calcification of the aorta and iliofemoral vessels without aneurysm. LYMPH NODES: No pathologic sized lymph nodes in the abdomen or pelvis. No inguinal lymphadenopathy. PELVIC VISCERA: Prostate gland is unremarkable. There is chronic vas deferens calcification which can be observed in patients with diabetes. SKELETAL: Unremarkable. CT/CT abdomen pelvis wo con IMPRESSION: * No acute imaging abnormalities in the abdomen or pelvis. No inflammatory change or obstruction along the gastrointestinal tract. * Diffuse hepatic steatosis. * Chronic rounded atelectasis is present in the posterior left lower lobe. * The blood pool is relatively hypodense compared to myocardium. This can be a manifestation of anemia.
[2021-11-27 09:31] VITALS: BP 165/84; PULSE 94; RESP 18; TEMP 35.7; O2SAT 99; BMI 29.7
--- NOTE | 2021-11-27 09:36 | ECG_ITS ---
Test Reason : abd pain/n/v/defibrillator Blood Pressure : / mmHG Vent. Rate : 086 BPM Atrial Rate : 086 BPM P-R Int : 158 ms QRS Dur : 082 ms QT Int : 406 ms P-R-T Axes : 054 006 098 degrees QTc Int : 485 ms Normal sinus rhythm Inferior infarct (cited on or before 30-AUG-2021) Abnormal ECG When compared with ECG of 30-AUG-2021 14:45, No significant change was found Referred By: Generic ED Physician Electronically Signed By:Yayo Barba
[2021-11-27] MEDS: Ondansetron ODT 4 MG TAB.RAPDIS TRANSLINGU (09:39)
[2021-11-27 09:48] LABS: MANUAL DIFF FLAG NO
[2021-11-27 09:51] LABS: Basophils Percent Auto 0.2 % (0-2); Eosinophils Absolute Auto 0.1 X10*3/uL (0.0-0.4); Eosinophils Percent Auto 1.3 % (0-4); Hematocrit 28.6 % (42.0-52.0); Hemoglobin 9.2 g/dl (14.0-18.0); Imm Gran Abs Auto 0.02 X10*3/uL (0.00-0.03); Imm Gran Pct Auto 0.3 % (0.0-0.4); Lymphocytes Percent Auto 15.8 % (20-40); Mean Corpuscular HGB Conc 32.2 g/dl (31.0-36.0); Mean Corpuscular Hemoglobin 32.1 pg (27.0-33.0); Mean Corpuscular Volume 99.7 fL (80.0-98.0); Mean Platelet Volume 11.2 fL (9.4-12.4); Monocytes Percent Auto 15.6 % (2-11); Neutrophils Absolute Auto 4.1 x10*3/uL (2.0-8.3); Neutrophils Percent Auto 66.8 % (45-73); Platelet Count 186 X10*3/uL (160-400); Red Blood Count 2.87 X10*6/uL (4.60-5.80); Red Cell Distribution Width 15.6 % (11.0-16.0); White Blood Count 6.1 X10*3/uL (4.8-10.8)
[2021-11-27 09:56] LABS: Prothrombin Time 11.8 SEC (9.9-13.0)
[2021-11-27 09:59] LABS: Partial Thromboplastin Time 34.7 SEC (24.1-38.0)
[2021-11-27 10:09] LABS: Troponin-I High Sensitivity 19.3 ng/L (<3.5-35.0)
[2021-11-27 10:14] LABS: Alanine Aminotransferase 33 U/L (0-40); Albumin Level 4.4 g/dL (3.5-5.0); Alkaline Phosphatase 94 U/L (39-117); Anion Gap 16 (12-20); Aspartate Amino Transferase 44 U/L (5-37); Bilirubin Total 0.4 mg/dL (0.0-1.0); Blood Urea Nitrogen 22 mg/dL (9-16); Calcium 9.3 mg/dL (8.4-10.2); Carbon Dioxide 23 mmol/L (22-29); Chloride 102 mmol/L (96-108); Creatinine Clr Calc Pharmacy 34.8; Estimated Glomerular Filt Rate 25; Glucose Random 359 mg/dL (60-115); Potassium 4.3 mmol/L (3.3-5.1); Sodium 137 mmol/L (135-145); Total Protein 7.1 g/dL (6.5-8.0)
--- NOTE | 2021-11-27 12:19 | ED.ABDPAIN ---
HPI - Abdominal Pain General Chief Complaint: Abdominal Pain Stated Complaint: vomiting/abd pain Time Seen by Provider: 11/27/21 12:17 History of Present Illness HPI narrative: 46-year-old male with a history of multiple myeloma on current chemotherapy, DM on insulin, CKD, CAD with ischemic cardiomyopathy, s/p AICD, hx CVA, who presents to the ER with ongoing nausea and vomiting after receiving chemotherapy 3 days ago. Since the chemotherapy patient has been vomiting, with increased vomiting yesterday. Patient had diarrhea all day 3 days ago but no bowel movement since. He has had worsening abdominal pain. No blood in his vomit, no dark, tarry, or bloody stools. No fevers Patient is being treated with Macrobid for UTI. Patient was able to take his insulin this morning. is at bedside and states that this is the same presentation after chemotherapy that has happened several times in the past, and the medications he has been given in the emergency room in the past has helped. ?He was seen here recently for the same treated with IV medications and IV fluids and ultimately discharged home.? Related Data Home Medications Medication Instructions Recorded Confirmed albuterol sulfate 90 mcg/actuation 2 puff INHALATION Q4H PRN 04/25/20 11/03/21 aerosol inhaler amitriptyline 25 mg tablet 25 mg PO BEDTIME 04/25/20 11/03/21 atorvastatin 80 mg tablet 80 mg PO BEDTIME 04/25/20 11/03/21 clopidogrel 75 mg tablet 75 mg PO DAILY 04/25/20 11/03/21 docusate sodium 100 mg capsule 100 mg PO BID 04/25/20 11/03/21 gabapentin 300 mg capsule 300 mg PO DAILY 04/25/20 11/03/21 (Neurontin) insulin glargine 100 unit/mL (3 47 unit SUBCUT QAM ml 04/25/20 11/03/21 mL) subcutaneous pen (Lantus Solostar U-100 Insulin) pantoprazole 40 mg tablet,delayed 40 mg PO DAILY 04/25/20 11/03/21 release sertraline 25 mg tablet 25 mg PO DAILY 04/25/20 11/03/21 azelastine 137 mcg (0.1 %) nasal 2 spray INTRANASAL BID 02/04/21 11/03/21 spray aerosol fenofibrate nanocrystallized 145 1 tab PO DAILY 02/04/21 11/03/21 mg tablet fluticasone 250 mcg-salmeterol 50 1 inh INHALATION Q12H 02/04/21 11/03/21 mcg/dose blistr powdr for inhalation gabapentin 300 mg capsule 600 mg PO BEDTIME 02/04/21 11/03/21 insulin lispro 100 unit/mL 10 - 18 unit SUBCUT TID 02/04/21 11/03/21 subcutaneous pen (Humalog KwikPen (U-100) Insulin) pen needle, diabetic 31 gauge x 02/04/21 11/03/21 5/16 (BD Ultra-Fine Short Pen Needle) tizanidine 4 mg tablet 1 tab PO BEDTIME PRN 02/04/21 11/03/21 sitagliptin 25 mg tablet (Januvia) 25 mg PO DAILY 03/18/21 11/03/21 sertraline 100 mg tablet 100 tab PO DAILY 05/25/21 11/03/21 torsemide 20 mg tablet 30 mg PO BID 09/15/21 11/03/21 aspirin 81 mg chewable tablet 1 tab PO DAILY 11/06/21 flash glucose sensor (FreeStyle #1 ea 11/06/21 Neville 14 Day Sensor) nicotine 21 mg/24 hr daily 1 patch TOPICAL DAILY 11/06/21 transdermal patch ondansetron HCl 4 mg tablet 8 mg PO Q8H PRN 11/06/21 Previous Rx's Medication Instructions Recorded carvedilol 12.5 mg tablet 12.5 mg PO BID 90 Days #180 tab 07/28/20 valacyclovir 500 mg tablet 500 mg PO DAILY #60 tab 05/25/21 (Valtrex) Magic Mouthwash 10 ml PO QID #240 ml 08/18/21 Diphen/Lido/Antacid 1:1:1 240 mL suspension loperamide 2 mg capsule 2 mg PO Q4H PRN #30 cap 09/01/21 vancomycin 25 mg/mL oral solution 125 mg (5 mL) PO DAILY 30 Days 09/01/21 (Firvanq) #150 ml calcium carbonate 500 mg-vitamin 1 tab PO TID #90 tab 09/22/21 D3 10 mcg (400 unit) tablet (Calcium 500 + D) clotrimazole 10 mg nury 10 mg MUCOUS MEMBRANE 5XD #50 tab 10/13/21 lenalidomide 15 mg capsule 15 mg PO DAILY #21 cap 11/05/21 (Revlimid) doxycycline hyclate 100 mg tablet 100 mg PO BID 14 Days #28 tab 11/06/21 nitrofurantoin macrocrystal 100 mg 100 mg PO BID 14 Days #28 cap 11/13/21 capsule sulfamethoxazole 800 1 tab PO DAILY #60 tab 11/16/21 mg-trimethoprim 160 mg tablet (Bactrim DS) phenazopyridine 100 mg tablet 100 mg PO TID PRN 5 Days #15 tab 11/23/21 (Pyridium) lenalidomide 15 mg capsule 15 mg PO DAILY #14 cap 11/26/21 (Revlimid) Allergies Allergy/AdvReac Type Severity Reaction Status Date / Time egg [EGG] Allergy Severe NAUSEA, Verified 11/18/21 14:00 ITCHY THROAT meperidine [From DEMEROL] Allergy Unknown AGITATION Verified 11/18/21 14:00 Review of Systems Constitutional: Denies body ache(s), Denies chills, Reports fatigue, Denies fever(s), Denies headache(s), Denies malaise and Denies weakness Eyes: Denies diplopia Denies vertigo, Denies dizziness, Denies otalgia, Denies headache(s), Denies mouth pain and Denies sore throat Cardiovascular: Denies chest pain, Denies syncope, Denies leg edema, Denies lightheadedness, Denies Loss of Consciousness, Denies palpitations and Denies dyspnea Respiratory: Denies chest congestion, Denies cough and Denies dyspnea Gastrointestinal: Reports abdominal pain, Denies melena, Denies hematochezia, Denies coffee ground emesis, Denies constipation, Reports diarrhea, Reports nausea and Reports vomiting Genitourinary: Reports no additional male genitourinary complaints Musculoskeletal: Reports no additional musculoskeletal complaints Denies confusion, Denies vertigo, Denies dizziness, Denies syncope, Denies headache(s) and Denies weakness Psychiatric: Denies anxiety, Denies confusion and Denies depression Endocrine: Reports fatigue and Denies palpitations PMFSH Past Medical History Medical History Bladder pain CAD (coronary artery disease) CKD (chronic kidney disease) CVA (cerebral vascular accident) Diabetes mellitus HLD (hyperlipidemia) HTN (hypertension) ICD (implantable cardioverter-defibrillator) in place Ischemic cardiomyopathy Monoclonal gammopathy Multiple myeloma Surgical History Hx of cardiac cath (~2017) S/P CABG x 2 (~02/2019) Family History Family History Father Diabetes mellitus Esophageal cancer Mother Diabetes mellitus Brother Diabetes mellitus Sister Diabetes mellitus Social History Social History Household Members: Spouse Housing: Apartment Do you presently have visiting nurse or other home services: No Alcohol intake: never Patient Tobacco Use Status: Never used Tobacco Tobacco use type: Cigarette Substance Use Type: Marijuana Advance Directives: Yes Advance Directives on File: Yes Advance Directives Date on File: 08/31/21 service: No Current occupational status: unemployed Physical Exam ED Vital Signs: Vital Signs - 24 hr 11/27/21 09:31 11/27/21 13:02 11/27/21 14:31 Temperature 96.2 F L Pulse Rate 94 76 77 Respiratory Rate 18 18 16 Blood Pressure 165/84 H 161/86 H 140/87 H Pulse Oximetry 99 97 95 BMI result Body Mass Index 29.7 Const General: alert, awake, acute distress (Actively groaning and vomiting) and ill appearing; No confusion Nutritional Appearance: obese Orientation/consciousness: patient oriented x3 and No confusion Limitations: no limitations HENMT Head: Yes normal to inspection, Yes normocephalic and Yes atraumatic Ears: hearing grossly normal bilaterally, external ears normal, TM's normal bilaterally and EAC's normal General nose exam: Normal external nose present Face and sinus: Yes normal facial exam and Yes sinuses nontender Mouth: Normal oral and palatal mucosa present Throat: Yes posterior oropharynx normal Eyes Conjunctivae: conjunctivae normal Pupils: Equal, round and reactive pupils present EOM: EOMs intact bilaterally Neck Neck: Yes full ROM, Yes no lymphadenopathy and Yes supple Resp Effort & Inspection: normal respiratory effort and able to speak in complete sentences Auscultation: clear to auscultation bilaterally, no crackles, no rales, no rhonchi and no wheezes Cardio Rate: regular rate Rhythm: regular rhythm Heart sounds: S1 normal heart sound present and S2 normal heart sound present GI Inspection: Yes distended, Yes Abdominal panniculus present and Yes obesity Palpation (GI): Soft to palpation, Tenderness to palpation present (GI) in the epigastrum, in the LLQ, in the RLQ, in the LUQ and in the RUQ, Guarding due to palpation present (GI) in the LLQ and in the RLQ and not rigid Percussion: Yes normal to percussion Auscultation: normal bowel sounds Skin General skin exam: no rashes or lesions noted Neuro General: patient oriented x3 and No confusion Cranial nerves: Yes Equal, round and reactive pupils present Extrem General: Yes normal to inspection and Yes full ROM Psych Appearance: grossly normal Affect: normal affect Attitude: cooperative Thought process: Normal thought process present Course Course Course Narrative: 46-year-old male who is being actively treated with chemotherapy for multiple myeloma presents for nausea and vomiting after chemotherapy 3 days ago. Patient has abdominal pain, had diarrhea which has since resolved. On exam, patient is afebrile with stable vitals, patient is actively vomiting and groaning in pain. Patient has guarding and tenderness lower abdomen Patient had labs drawn that showed creatinine 2.75, blood glucose 359, troponin 19.3. I ordered magnesium, VBG to and acetone to rule out DKA, CT abdomen to rule out any acute pathology, urine. Will repeat troponin, will hydrate, will give Benadryl and Phenergan, which helped patient last time he presented with similar symptoms after chemo treatment Reevaluation(s) Reevaluation #1: On reexamination, patient is sleeping, not actively vomiting Patient has no infection in his urine, but does have glucosuria, patient has a creatinine of 2.75, which appears to be his baseline. Blood sugars elevated at 359, troponin elevated at 19.3, EKG shows no acute ischemia. Will give fluids and repeat blood sugar, will repeat troponin. Patient has negative acetone, no anion gap, VBG is normal, negative COVID, magnesium is stable at 2.1 This is not DKA CT/CT abdomen pelvis wo con IMPRESSION: *? No acute imaging abnormalities in the abdomen or pelvis. No inflammatory change or obstruction along the gastrointestinal tract. *? Diffuse hepatic steatosis. *? Chronic rounded atelectasis is present in the posterior left lower lobe. *? The blood pool is relatively hypodense compared to myocardium. This can be a manifestation of anemia. Reevaluation #2: Patient has received 2 L of fluid, Benadryl, Phenergan Repeat troponin 26.9, no >50% delt change, patient has no chest pain, had a normal EKG, I do not think this elevated troponin is ischemia POC blood glucose [address] Villasenor, Oncologist, who is aware of patient Reevaluation #3: Unfortunately, when I went to evaluate the patient for discharge home, he was vomiting continuously Will give Haldol, pursue admission for intractable chemo induced vomiting Dr Villasenor, through TT, agreed admission is warrented MDM - Abdominal Pain Lab Data Result diagrams: 11/27/21 09:45 11/27/21 09:45 Labs: Lab Results 11/27/21 11/27/21 11/27/21 Range/Units 09:45 09:45 09:45 WBC 6.1 (4.8-10.8) X10*3/uL RBC 2.87 L (4.60-5.80) X10*6/uL Hgb 9.2 L (14.0-18.0) g/dl Hct 28.6 L (42.0-52.0) % MCV 99.7 H (80.0-98.0) fL MCH 32.1 (27.0-33.0) pg MCHC 32.2 (31.0-36.0) g/dl RDW 15.6 (11.0-16.0) % Plt Count 186 D (160-400) X10*3/uL MPV 11.2 (9.4-12.4) fL Immature Gran % (Auto) 0.3 (0.0-0.4) % Neut % (Auto) 66.8 (45-73) % Lymph % (Auto) 15.8 L (20-40) % [place] % (Auto) 15.6 H (2-11) % Eos % (Auto) 1.3 (0-4) % Baso % (Auto) 0.2 (0-2) % Lymph # (Auto) 1.0 L (1.2-4.9) X10*3/uL [place] # (Auto) 1.0 (0.1-1.2) X10*3/uL Eos # (Auto) 0.1 (0.0-0.4) X10*3/uL Baso # (Auto) 0.0 (0.0-0.2) X10*3/uL Abs Immat Gran (auto) 0.02 (0.00-0.03) X10*3/uL Absolute Neuts (auto) 4.1 (2.0-8.3) x10*3/uL Absolute Nucleated RBC 0.000 (0.0-0.012) X10*3/uL Nucleated RBC % (auto) 0.0 (0.0-0.2) /100WBC PT (9.9-13.0) SEC INR (0.9-1.1) APTT (24.1-38.0) SEC VBG pH (7.32-7.43) VBG pCO2 mmHg VBG pO2 mmHg VBG HCO3 (22-26) mmol/L VBG O2 Saturation % VBG Base Excess mmol/L Sodium 137 (135-145) mmol/L Potassium 4.3 (3.3-5.1) mmol/L Chloride 102 (96-108) mmol/L Carbon Dioxide 23 (22-29) mmol/L Anion Gap 16 (12-20) BUN 22 H (9-16) mg/dL Creatinine 2.75 H (0.5-1.4) mg/dL Estim Creat Clear Calc 34.8 Estimated GFR 25 POC Glucose (60-115) mg/dL Random Glucose 359 H* (60-115) mg/dL Calcium 9.3 (8.4-10.2) mg/dL Magnesium (1.6-2.6) mg/dL Total Bilirubin 0.4 (0.0-1.0) mg/dL AST 44 H (5-37) U/L ALT 33 (0-40) U/L Alkaline Phosphatase 94 (39-117) U/L Troponin I High Sens 19.3 D (<3.5-35.0) ng/L Total Protein 7.1 (6.5-8.0) g/dL Albumin 4.4 (3.5-5.0) g/dL Urine Color Urine Appearance Urine pH (5.0-8.0) Ur Specific [place] (1.005-1.025) Urine Protein (NEG-TRACE) MG/DL Urine Glucose (UA) (NEG) MG/DL Urine Ketones (NEG) MG/DL Urine Blood (NEG) Urine Nitrite (NEG) Ur Leukocyte Esterase (NEG) Urine RBC (0) /HPF Urine WBC (0-4) /HPF Ur Squamous Epith Cells /LPF Urine Bacteria /LPF Acetone, Qual (Negative) COVID-19 (KATE) (Negative) COVID-19 Clin Com 11/27/21 11/27/21 11/27/21 Range/Units 09:45 12:43 12:55 WBC (4.8-10.8) X10*3/uL RBC (4.60-5.80) X10*6/uL Hgb (14.0-18.0) g/dl Hct (42.0-52.0) % MCV (80.0-98.0) fL MCH (27.0-33.0) pg MCHC (31.0-36.0) g/dl RDW (11.0-16.0) % Plt Count (160-400) X10*3/uL MPV (9.4-12.4) fL Immature Gran % (Auto) (0.0-0.4) % Neut % (Auto) (45-73) % Lymph % (Auto) (20-40) % [place] % (Auto) (2-11) % Eos % (Auto) (0-4) % Baso % (Auto) (0-2) % Lymph # (Auto) (1.2-4.9) X10*3/uL [place] # (Auto) (0.1-1.2) X10*3/uL Eos # (Auto) (0.0-0.4) X10*3/uL Baso # (Auto) (0.0-0.2) X10*3/uL Abs Immat Gran (auto) (0.00-0.03) X10*3/uL Absolute Neuts (auto) (2.0-8.3) x10*3/uL Absolute Nucleated RBC (0.0-0.012) X10*3/uL Nucleated RBC % (auto) (0.0-0.2) /100WBC PT 11.8 (9.9-13.0) SEC INR 1.0 (0.9-1.1) APTT 34.7 (24.1-38.0) SEC VBG pH (7.32-7.43) VBG pCO2 mmHg VBG pO2 mmHg VBG HCO3 (22-26) mmol/L VBG O2 Saturation % VBG Base Excess mmol/L Sodium (135-145) mmol/L Potassium (3.3-5.1) mmol/L Chloride (96-108) mmol/L Carbon Dioxide (22-29) mmol/L Anion Gap (12-20) BUN (9-16) mg/dL Creatinine (0.5-1.4) mg/dL Estim Creat Clear Calc Estimated GFR POC Glucose (60-115) mg/dL Random Glucose (60-115) mg/dL Calcium (8.4-10.2) mg/dL Magnesium 2.1 (1.6-2.6) mg/dL Total Bilirubin (0.0-1.0) mg/dL AST (5-37) U/L ALT (0-40) U/L Alkaline Phosphatase (39-117) U/L Troponin I High Sens (<3.5-35.0) ng/L Total Protein (6.5-8.0) g/dL Albumin (3.5-5.0) g/dL Urine Color YELLOW Urine Appearance CLEAR Urine pH 6.0 (5.0-8.0) Ur Specific [place] <= 1.005 (1.005-1.025) Urine Protein 1+ H (NEG-TRACE) MG/DL Urine Glucose (UA) 500 H (NEG) MG/DL Urine Ketones NEG (NEG) MG/DL Urine Blood TRACE (NEG) Urine Nitrite NEG (NEG) Ur Leukocyte Esterase NEG (NEG) Urine RBC 1-4 (0) /HPF Urine WBC 0 (0-4) /HPF Ur Squamous Epith Cells TRACE /LPF Urine Bacteria NONE /LPF Acetone, Qual Negative (Negative) COVID-19 ([facility]ATE) (Negative) COVID-19 Clin Com 11/27/21 11/27/21 11/27/21 Range/Units 12:59 14:15 15:09 WBC (4.8-10.8) X10*3/uL RBC (4.60-5.80) X10*6/uL Hgb (14.0-18.0) g/dl Hct (42.0-52.0) % MCV (80.0-98.0) fL MCH (27.0-33.0) pg MCHC (31.0-36.0) g/dl RDW (11.0-16.0) % Plt Count (160-400) X10*3/uL MPV (9.4-12.4) fL Immature Gran % (Auto) (0.0-0.4) % Neut % (Auto) (45-73) % Lymph % (Auto) (20-40) % [place] % (Auto) (2-11) % Eos % (Auto) (0-4) % Baso % (Auto) (0-2) % Lymph # (Auto) (1.2-4.9) X10*3/uL [place] # (Auto) (0.1-1.2) X10*3/uL Eos # (Auto) (0.0-0.4) X10*3/uL Baso # (Auto) (0.0-0.2) X10*3/uL Abs Immat Gran (auto) (0.00-0.03) X10*3/uL Absolute Neuts (auto) (2.0-8.3) x10*3/uL Absolute Nucleated RBC (0.0-0.012) X10*3/uL Nucleated RBC % (auto) (0.0-0.2) /100WBC PT (9.9-13.0) SEC INR (0.9-1.1) APTT (24.1-38.0) SEC VBG pH 7.39 (7.32-7.43) VBG pCO2 32 mmHg VBG pO2 37 mmHg VBG HCO3 20 L (22-26) mmol/L VBG O2 Saturation 53.0 % VBG Base Excess -4.0 mmol/L Sodium (135-145) mmol/L Potassium (3.3-5.1) mmol/L Chloride (96-108) mmol/L Carbon Dioxide (22-29) mmol/L Anion Gap (12-20) BUN (9-16) mg/dL Creatinine (0.5-1.4) mg/dL Estim Creat Clear Calc Estimated GFR POC Glucose 165 H (60-115) mg/dL Random Glucose (60-115) mg/dL Calcium (8.4-10.2) mg/dL Magnesium (1.6-2.6) mg/dL Total Bilirubin (0.0-1.0) mg/dL AST (5-37) U/L ALT (0-40) U/L Alkaline Phosphatase (39-117) U/L Troponin I High Sens (<3.5-35.0) ng/L Total Protein (6.5-8.0) g/dL Albumin (3.5-5.0) g/dL Urine Color Urine Appearance Urine pH (5.0-8.0) Ur Specific [place] (1.005-1.025) Urine Protein (NEG-TRACE) MG/DL Urine Glucose (UA) (NEG) MG/DL Urine Ketones (NEG) MG/DL Urine Blood (NEG) Urine Nitrite (NEG) Ur Leukocyte Esterase (NEG) Urine RBC (0) /HPF Urine WBC (0-4) /HPF Ur Squamous Epith Cells /LPF Urine Bacteria /LPF Acetone, Qual (Negative) COVID-19 ([facility]ATE) Negative (Negative) COVID-19 Clin Com See Note 11/27/21 Range/Units 15:15 WBC (4.8-10.8) X10*3/uL RBC (4.60-5.80) X10*6/uL Hgb (14.0-18.0) g/dl Hct (42.0-52.0) % MCV (80.0-98.0) fL MCH (27.0-33.0) pg MCHC (31.0-36.0) g/dl RDW (11.0-16.0) % Plt Count (160-400) X10*3/uL MPV (9.4-12.4) fL Immature Gran % (Auto) (0.0-0.4) % Neut % (Auto) (45-73) % Lymph % (Auto) (20-40) % [place] % (Auto) (2-11) % Eos % (Auto) (0-4) % Baso % (Auto) (0-2) % Lymph # (Auto) (1.2-4.9) X10*3/uL [place] # (Auto) (0.1-1.2) X10*3/uL Eos # (Auto) (0.0-0.4) X10*3/uL Baso # (Auto) (0.0-0.2) X10*3/uL Abs Immat Gran (auto) (0.00-0.03) X10*3/uL Absolute Neuts (auto) (2.0-8.3) x10*3/uL Absolute Nucleated RBC (0.0-0.012) X10*3/uL Nucleated RBC % (auto) (0.0-0.2) /100WBC PT (9.9-13.0) SEC INR (0.9-1.1) APTT (24.1-38.0) SEC VBG pH (7.32-7.43) VBG pCO2 mmHg VBG pO2 mmHg VBG HCO3 (22-26) mmol/L VBG O2 Saturation % VBG Base Excess mmol/L Sodium (135-145) mmol/L Potassium (3.3-5.1) mmol/L Chloride (96-108) mmol/L Carbon Dioxide (22-29) mmol/L Anion Gap (12-20) BUN (9-16) mg/dL Creatinine (0.5-1.4) mg/dL Estim Creat Clear Calc Estimated GFR POC Glucose (60-115) mg/dL Random Glucose (60-115) mg/dL Calcium (8.4-10.2) mg/dL Magnesium (1.6-2.6) mg/dL Total Bilirubin (0.0-1.0) mg/dL AST (5-37) U/L ALT (0-40) U/L Alkaline Phosphatase (39-117) U/L Troponin I High Sens 26.9 (<3.5-35.0) ng/L Total Protein (6.5-8.0) g/dL Albumin (3.5-5.0) g/dL Urine Color Urine Appearance Urine pH (5.0-8.0) Ur Specific [place] (1.005-1.025) Urine Protein (NEG-TRACE) MG/DL Urine Glucose (UA) (NEG) MG/DL Urine Ketones (NEG) MG/DL Urine Blood (NEG) Urine Nitrite (NEG) Ur Leukocyte Esterase (NEG) Urine RBC (0) /HPF Urine WBC (0-4) /HPF Ur Squamous Epith Cells /LPF Urine Bacteria /LPF Acetone, Qual (Negative) COVID-19 ([facility]) (Negative) COVID-19 Clin Com ECG Data Interpretation: Sinus at a rate of 86, IA 158, QRS 82, QTC 45, left axis, no ST elevation, no T-wave changes Discharge Plan Discharge Clinical Impression: Chemotherapy induced nausea and vomiting, Intractable vomiting Patient Disposition: Admitted As Inpatient
[2021-11-27] MEDS: diphenhydrAMINE HCL 50 MG/ML VIAL IVPUSH (12:50)
[2021-11-27] MEDS: 0.9 % Sodium Chloride 1,000 ML 999 ML IV ×2 (12:50→15:13)
[2021-11-27 12:51] LABS: Appearance Urine CLEAR; Color Urine YELLOW; Glucose Urine UA 500 MG/DL (NEG); Leukocyte Esterase Urine NEG (NEG); Nitrite Urine NEG (NEG); Specific Gravity - Urine <= 1.005 (1.005-1.025); UACC Culture Trigger NO; Urine Blood TRACE (NEG); Urine Ketones NEG (NEG); Urine Protein 1+ MG/DL (NEG-TRACE)
[2021-11-27 13:02] VITALS: BP 161/86; PULSE 76; RESP 18; O2SAT 97
[2021-11-27 13:08] LABS: Squamous Epithelial Cell Urine TRACE /LPF; WBC Urine 0 /HPF (0-4)
[2021-11-27 13:34] LABS: Acetone, serum QL Negative (Negative)
[2021-11-27 13:34] LABS: COVID-19 Test Negative (Negative)
[2021-11-27 13:44] LABS: Magnesium 2.1 mg/dL (1.6-2.6)
--- NOTE | 2021-11-27 14:06 | PC.NURSE ---
pt reports moderate relief in nausea. plan of care is to compete vbg and recheck poc after all iv fluids infuse.
[2021-11-27 14:28] LABS: Venous Blood Gas Refer to POC result
[2021-11-27 14:31] VITALS: BP 140/87; PULSE 77; RESP 16; O2SAT 95
[2021-11-27 14:32] LABS: VBG HCO3 20 mmol/L (22-26); VBG pCO2 32 mmHg; VBG pH 7.39 (7.32-7.43); VBG pO2 37 mmHg
[2021-11-27 15:18] LABS: Glucose, Whole Blood 165 mg/dL (60-115)
[2021-11-27 15:44] LABS: Troponin-I High Sensitivity 26.9 ng/L (<3.5-35.0)
[2021-11-27] MEDS: LORazepam 2 MG/ML VIAL 1 MG IVPUSH (17:00)
--- NOTE | 2021-11-27 17:07 | PM.IMHP ---
History of Present Illness Date of Service: 11/27/21 Attending physician on admission: Ted Urban Chief Complaint: Nausea and vomiting 46-year-old gentleman with past medical history of multiple myeloma received chemotherapy last Tuesday, 3 days ago, history of diabetes mellitus type 2 on insulin, coronary artery disease, cardiomyopathy status post AICD, chronic kidney disease stage 3, CVA presented to [facility] due to intractable nausea and vomiting that started 3 nights ago initially patient had nausea followed by vomiting, has been vomiting small amount of bile, decreased by mouth intake associated with mid abdominal and epigastric pain, generalized weakness and lightheadedness, patient treated in the emergency room with IV fluids multiple rounds of antiemetics, Benadryl but continued to have persistent nausea vomiting in able to give food down therefore being admitted to [facility], patient also complained chills with no associated fever no chest pain, no shortness of breath Workup in the emergency room showed elevated blood sugar of 359, creatinine at baseline of 2.75, normal troponin, CBC reveals stable hematocrit, normal WBC count, CT abdomen and pelvis showed diffuse hepatic steatosis, chronic rounded atelectasis, COVID-19 negative, urinalysis showed 500 glucose no bacteria patient is being admitted to [facility] intractable nausea vomiting related to chemotherapy. Review of Systems Review of Systems: General no headache, complaining of lightheadedness and chills CVS no chest pain, no palpitation. Respiratory no cough, no shortness of breath no urinary urgency, no frequency Yes all other systems are reviewed and are negative [facility] Medical History Bladder pain CAD (coronary artery disease) CKD (chronic kidney disease) CVA (cerebral vascular accident) Diabetes mellitus HLD (hyperlipidemia) HTN (hypertension) ICD (implantable cardioverter-defibrillator) in place Ischemic cardiomyopathy Monoclonal gammopathy Multiple myeloma Family History Father Diabetes mellitus Esophageal cancer Mother Diabetes mellitus Brother Diabetes mellitus Sister Diabetes mellitus Surgical History Hx of cardiac cath (~2017) S/P CABG x 2 (~02/2019) Social History Household Members: Spouse Housing: Apartment Do you presently have visiting nurse or other home services: No Alcohol intake: never Patient Tobacco Use Status: Never used Tobacco Tobacco use type: Cigarette Substance Use Type: Marijuana Advance Directives: Yes Advance Directives on File: Yes Advance Directives Date on File: 08/31/21 service: No Current occupational status: unemployed Meds Allergies Allergy/AdvReac Type Severity Reaction Status Date / Time egg [EGG] Allergy Severe NAUSEA, Verified 11/18/21 14:00 ITCHY THROAT meperidine [From DEMEROL] Allergy Unknown AGITATION Verified 11/18/21 14:00 Active Medications: Current Medications Acetaminophen (Acetaminophen 325 Mg Tablet) 650 mg PO Q6H PRN PRN Reason: Pain, Mild (Pain Scale 1-3) Dextrose (Dextrose 50 % 25 Gm/50 Ml Syringe) 25 gm IVPUSH Q15M PRN; Protocol PRN Reason: per Hypoglycemia Standing Ord. Famotidine (Famotidine/Pf 20 Mg/2 Ml Vial) 20 mg IVPUSH BID MAGUI Glucose (Glucose Gel 15 Gm Gel..Gram.) 15 gm PO Q15M PRN; Protocol PRN Reason: per Hypoglycemia Standing Ord. Sodium Chloride (Ns) 1,000 mls @ 100 mls/hr IVCONT .Q10H MAGUI Insulin Human Lispro (Insulin Lispro 100 Unit/Ml 3 Ml Vial) 0 unit SUBCUT QIDACHS [facility]; Protocol Melatonin (Melatonin 3 Mg Tablet) 6 mg PO BEDTIME PRN PRN Reason: Insomnia Ondansetron HCl (Ondansetron Hcl 4 Mg/2 Ml Vial) 4 mg IVPUSH Q6H PRN PRN Reason: Nausea Pharmacy Consult (Consult Rx Perform Med Rec) 1 each MISCELLANE ONCE PRN PRN Reason: Consult order Sodium Chloride (0.9 % Sodium Chloride Flush 3 Ml Syringe) 3 [facility] Home Medications Medication Instructions Recorded Confirmed Last Taken Type albuterol sulfate 90 mcg/actuation 2 puff INHALATION Q4H PRN 04/25/20 11/03/21 Unknown History aerosol inhaler amitriptyline 25 mg tablet 25 mg PO BEDTIME 04/25/20 11/03/21 Unknown History atorvastatin 80 mg tablet 80 mg PO BEDTIME 04/25/20 11/03/21 Unknown History clopidogrel 75 mg tablet 75 mg PO DAILY 04/25/20 11/03/21 04/04/21 History docusate sodium 100 mg capsule 100 mg PO BID 04/25/20 11/03/21 04/09/21 History gabapentin 300 mg capsule 300 mg PO DAILY 04/25/20 11/03/21 04/09/21 History (Neurontin) insulin glargine 100 unit/mL (3 47 unit SUBCUT QAM ml 04/25/20 11/03/21 Unknown History mL) subcutaneous pen (Lantus Solostar U-100 Insulin) pantoprazole 40 mg tablet,delayed 40 mg PO DAILY 04/25/20 11/03/21 04/09/21 History release sertraline 25 mg tablet 25 mg PO DAILY 04/25/20 11/03/21 04/09/21 History azelastine 137 mcg (0.1 %) nasal 2 spray INTRANASAL BID 02/04/21 11/03/21 Unknown History spray aerosol fenofibrate nanocrystallized 145 1 tab PO DAILY 02/04/21 11/03/21 04/09/21 History mg tablet fluticasone 250 mcg-salmeterol 50 1 inh INHALATION Q12H 02/04/21 11/03/21 Unknown History mcg/dose blistr powdr for inhalation gabapentin 300 mg capsule 600 mg PO BEDTIME 02/04/21 11/03/21 Unknown History insulin lispro 100 unit/mL 10 - 18 unit SUBCUT TID 02/04/21 11/03/21 Unknown History subcutaneous pen (Humalog KwikPen (U-100) Insulin) pen needle, diabetic 31 gauge x 02/04/21 11/03/21 Unknown History 5/16 (BD Ultra-Fine Short Pen Needle) tizanidine 4 mg tablet 1 tab PO BEDTIME PRN 02/04/21 11/03/21 Unknown History sitagliptin 25 mg tablet (Januvia) 25 mg PO DAILY 03/18/21 11/03/21 04/09/21 History sertraline 100 mg tablet 100 tab PO DAILY 05/25/21 11/03/21 Unknown History torsemide 20 mg tablet 30 mg PO BID 09/15/21 11/03/21 Unknown History aspirin 81 mg chewable tablet 1 tab PO DAILY 11/06/21 Unknown History flash glucose sensor (FreeStyle #1 ea 11/06/21 Unknown History Neville 14 Day Sensor) nicotine 21 mg/24 hr daily 1 patch TOPICAL DAILY 11/06/21 Unknown History transdermal patch ondansetron HCl 4 mg tablet 8 mg PO Q8H PRN 11/06/21 Unknown History Physical Exam Vital Signs and Narrative: Vital Signs: Last Vital Signs Temp 96.2 F L 11/27/21 09:31 Pulse 77 11/27/21 14:31 Resp 16 11/27/21 14:31 BP 140/87 H 11/27/21 14:31 Pulse Ox 95 11/27/21 14:31 BMI result Body Mass Index 29.7 Const: Other: General awake alert x3 in significant distress due to abdominal pain and nausea HEENT pupils equal round reactive to light and accommodation Neck no JVD. CVS regular rate rhythm, Respiratory lungs clear to auscultation, no respiratory distress, no wheeze, no rhonchi. Gastrointestinal abdomen epigastric and mid abdominal tenderness, soft bowel sounds audible, no guarding , no rigidity. Extremities no edema. Neuro nonfocal speech clear. Psych appropriate affect Results Labs CBC and Chem 7: 11/27/21 09:45 11/27/21 09:45 Labs: Laboratory Results - last 24 hr 11/27/21 11/27/21 11/27/21 09:45 09:45 09:45 MCV 99.7 H MCH 32.1 MCHC 32.2 RDW 15.6 Plt Count 186 D MPV 11.2 Immature Gran % (Auto) 0.3 Neut % (Auto) 66.8 Lymph % (Auto) 15.8 L Jay % (Auto) 15.6 H Eos % (Auto) 1.3 Baso % (Auto) 0.2 Lymph # (Auto) 1.0 L Jay # (Auto) 1.0 Eos # (Auto) 0.1 Baso # (Auto) 0.0 Abs Immat Gran (auto) 0.02 Absolute Neuts (auto) 4.1 Absolute Nucleated RBC 0.000 Nucleated RBC % (auto) 0.0 PT INR APTT VBG pH VBG pCO2 VBG pO2 VBG HCO3 VBG O2 Saturation VBG Base Excess Anion Gap 16 Estim Creat Clear Calc 34.8 Estimated GFR 25 POC Glucose Random Glucose 359 H* Calcium 9.3 Magnesium Total Bilirubin 0.4 AST 44 H ALT 33 Alkaline Phosphatase 94 Troponin I High Sens 19.3 D Total Protein 7.1 Albumin 4.4 Urine Color Urine Appearance Urine pH Ur Specific [place] Urine Protein Urine Glucose (UA) Urine Ketones Urine Blood Urine Nitrite Ur Leukocyte Esterase Urine RBC Urine WBC Ur Squamous Epith Cells Urine Bacteria Acetone, Qual COVID-19 (KATE) COVID-19 [employer] Com 11/27/21 11/27/21 11/27/21 09:45 12:43 12:55 MCV MCH MCHC RDW Plt Count MPV Immature Gran % (Auto) Neut % (Auto) Lymph % (Auto) Jay % (Auto) Eos % (Auto) Baso % (Auto) Lymph # (Auto) Jay # (Auto) Eos # (Auto) Baso # (Auto) Abs Immat Gran (auto) Absolute Neuts (auto) Absolute Nucleated RBC Nucleated RBC % (auto) PT 11.8 INR 1.0 APTT 34.7 VBG pH VBG pCO2 VBG pO2 VBG HCO3 VBG O2 Saturation VBG Base Excess Anion Gap Estim Creat Clear Calc Estimated GFR POC Glucose Random Glucose Calcium Magnesium 2.1 Total Bilirubin AST ALT Alkaline Phosphatase Troponin I High Sens Total Protein Albumin Urine Color YELLOW Urine Appearance CLEAR Urine pH 6.0 Ur Specific [place] <= 1.005 Urine Protein 1+ H Urine Glucose (UA) 500 H Urine Ketones NEG Urine Blood TRACE Urine Nitrite NEG Ur Leukocyte Esterase NEG Urine RBC 1-4 Urine WBC 0 Ur Squamous Epith Cells TRACE Urine Bacteria NONE Acetone, Qual Negative COVID-19 (KATE) COVID-19 [place] 11/27/21 11/27/21 11/27/21 12:59 14:15 15:09 MCV MCH MCHC RDW Plt Count MPV Immature Gran % (Auto) Neut % (Auto) Lymph % (Auto) Jay % (Auto) Eos % (Auto) Baso % (Auto) Lymph # (Auto) Jay # (Auto) Eos # (Auto) Baso # (Auto) Abs Immat Gran (auto) Absolute Neuts (auto) Absolute Nucleated RBC Nucleated RBC % (auto) PT INR APTT VBG pH 7.39 VBG pCO2 32 VBG pO2 37 VBG HCO3 20 L VBG O2 Saturation 53.0 VBG Base Excess -4.0 Anion Gap Estim Creat Clear Calc Estimated GFR POC Glucose 165 H Random Glucose Calcium Magnesium Total Bilirubin AST ALT Alkaline Phosphatase Troponin I High Sens Total Protein Albumin Urine Color Urine Appearance Urine pH Ur Specific [place] Urine Protein Urine Glucose (UA) Urine Ketones Urine Blood Urine Nitrite Ur Leukocyte Esterase Urine RBC Urine WBC Ur Squamous Epith Cells Urine Bacteria Acetone, Qual COVID-19 (KATE) Negative COVID-19 Clin Com See Note 11/27/21 15:15 MCV MCH MCHC RDW Plt Count MPV Immature Gran % (Auto) Neut % (Auto) Lymph % (Auto) Jay % (Auto) Eos % (Auto) Baso % (Auto) Lymph # (Auto) Jay # (Auto) Eos # (Auto) Baso # (Auto) Abs Immat Gran (auto) Absolute Neuts (auto) Absolute Nucleated RBC Nucleated RBC % (auto) PT INR APTT VBG pH VBG pCO2 VBG pO2 VBG HCO3 VBG O2 Saturation VBG Base Excess Anion Gap Estim Creat Clear Calc Estimated GFR POC Glucose Random Glucose Calcium Magnesium Total Bilirubin AST ALT Alkaline Phosphatase Troponin I High Sens 26.9 Total Protein Albumin Urine Color Urine Appearance Urine pH Ur Specific [place] Urine Protein Urine Glucose (UA) Urine Ketones Urine Blood Urine Nitrite Ur Leukocyte Esterase Urine RBC Urine WBC Ur Squamous Epith Cells Urine Bacteria Acetone, Qual COVID-19 (KATE) COVID-19 Clin Com Imaging Radiologist's Impressions: Impressions Abdomen/Pelvis CT 11/27/21 13:35 IMPRESSION: * No acute imaging abnormalities in the abdomen or pelvis. No inflammatory change or obstruction along the gastrointestinal tract. * Diffuse hepatic steatosis. * Chronic rounded atelectasis is present in the posterior left lower lobe. * The blood pool is relatively hypodense compared to myocardium. This can be a manifestation of anemia. Assessment and Plan (1) Chemotherapy induced nausea and vomiting: Status: Acute (2) Multiple myeloma: Status: Acute (3) CAD (coronary artery disease): Status: Acute (4) CKD (chronic kidney disease): Status: Acute (5) Diabetes mellitus: Status: Acute (6) HLD (hyperlipidemia): Status: Acute Plan 46 years old male with PMH of multiple myeloma on chemotherapy, diabetes type 2, CAD, CMP post AICD, CKD stage III, CVA among others who presented to the hospital complaining of nausea and vomiting for the last 3 days.? Intractable nausea vomiting, and abdominal pain Secondary to chemotherapy Abdominal CT scan negative for any acute findings Admit to [facility], placed on IV fluids, IV Zofran , IV Pepcid as needed Ativan/Haldol Place on diabetic diet as tolerated Hyperglycemia secondary to diabetes on insulin Due to decreased by mouth intake with nausea vomiting will place on insulin sliding scale diabetic diet as tolerated follow blood sugars, hold Lantus Multiple myeloma On chemotherapy outpatient follow-up with Oncology Chronic kidney disease stage 3 is stable Cardiomyopathy EF 30-35% status post AICD No acute exacerbation med reconciliation pending follow home meds DVT PPX Heparin Code status full code Patient will need 2 night inpatient stay due to chemotherapy-induced intractable nausea vomiting, unable to keep fluids down with hyperglycemia need IV hydration and close blood sugar monitoring. Quality Stroke Does the patient have a stroke diagnosis?: No VTE Prior VTE?: No VTE Risk Level:: Medical - moderate - high VTE Device Contraindication: Treatment Not Indicated VTE Drug Contraindication: N/A - Med Ordered
--- NOTE | 2021-11-27 18:31 | PHA.MEDREC ---
Pharmacy Consult ? Medication Reconciliation Pharmacy has completed the medication reconciliation. CARVIDELOL IS NOW ONCE A DAY PER SPOUSE, PT NOT TO TAKE REVLIMID THIS WEEK
[2021-11-27 18:43] VITALS: BP 136/74; PULSE 84; RESP 18; TEMP 36.8; O2SAT 95
[2021-11-27 18:49] LABS: Glucose, Whole Blood 164 mg/dL (60-115)
[2021-11-27] MEDS: 0.9 % Sodium Chloride 1,000 ML 100 ML IVCONT (19:12)
[2021-11-27 20:59] LABS: Glucose, Whole Blood 152 mg/dL (60-115)
[2021-11-27 21:02] VITALS: BP 158/76; PULSE 81; RESP 18; TEMP 36.8; O2SAT 96
[2021-11-27] MEDS: ondansetron HCL 4 MG/2 ML VIAL IVPUSH (21:54)
[2021-11-27 23:23] VITALS: BP 140/80; PULSE 80; RESP 20; TEMP 36.7; O2SAT 95
[2021-11-28] MEDS: ondansetron HCL 4 MG/2 ML VIAL IVPUSH ×2 (00:55→07:31)
[2021-11-28 01:26] LABS: Glucose, Whole Blood 192 mg/dL (60-115)
[2021-11-28] MEDS: 0.9 % Sodium Chloride 1,000 ML 100 ML IVCONT (03:09)
[2021-11-28] MEDS: LORazepam 2 MG/ML VIAL 1 MG IVPUSH (03:41)
[2021-11-28 04:26] VITALS: BP 164/93; PULSE 96; RESP 23; TEMP 36.4; O2SAT 98
[2021-11-28 07:33] LABS: Glucose, Whole Blood 178 mg/dL (60-115)
[2021-11-28] MEDS: Insulin Lispro 100 UNIT/ML 3 ML VIAL SUBCUT ×3 (07:56→18:53)
[2021-11-28] MEDS: Morphine Sulfate 2 MG/ML CARTRIDGE IVPUSH (09:35)
[2021-11-28] MEDS: Pantoprazole Sodium 40 MG/10 ML VIAL IVPUSH (09:36)
[2021-11-28] MEDS: Sertraline HCL 25 MG TABLET PO (09:37)
[2021-11-28] MEDS: carvediloL 12.5 MG TABLET PO (09:37)
[2021-11-28] MEDS: Gabapentin 300 MG CAPSULE PO (09:44)
[2021-11-28] MEDS: 0.9 % Sodium Chloride Flush 3 ML SYRINGE IVFLUSH (09:44)
[2021-11-28] MEDS: Sertraline HCL 100 MG TABLET PO ×2 (09:44→13:53)
--- NOTE | 2021-11-28 10:36 | PC.NURSE ---
pt received in bed at 730a with increased nausea and vomiting. Medicated as ordered with effect. Alert, oriented x 4. Belgian-speaking. Pt resting, used bathroom, states increased abd pain. Medicated for pain with effect, patient now resting. No cardiac or respiratory complaints. IV left AC flushing well, NS infusing at 100/hr.
[2021-11-28 10:52] LABS: Glucose, Whole Blood 192 mg/dL (60-115)
--- NOTE | 2021-11-28 11:04 | MHC.CM.PN ---
CM MET WITH PT WITH THE ASSISTANCE OF A [facility] START UP SPECIALIST PT REPORTS HE LIVES WITH HIS AND SON PT IS INDEPENDENT WITH CARE AND HAS NO HOME SERVICES PT USES A CPAP NIGHTLY AND A NEBULIZER PRN PT HAS A HCP ON FILE PCP: CESAR ARGUELLO PT IS COVID-19 VACCINATED X 2 CURRENT DC PLAN IS HOME WITH NO SERVICES PT TO SELF ARRANGE TRANSPORT
[2021-11-28 12:00] VITALS: BP 140/70; PULSE 82; RESP 20; TEMP 36.7; O2SAT 98
--- NOTE | 2021-11-28 12:31 | HO.PM.IMPN ---
Subjective Subjective Date of Service: 11/28/21 Interval History: Complaining of persistent abdominal pain and nausea unable to take by mouth, no fevers no chills, denies shortness of breath no dizziness. 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 CVS? regular rate rhythm, Respiratory lungs clear to auscultation, no respiratory distress, no wheeze, no rhonchi. Gastrointestinal abdomen epigastric and mid abdominal tenderness, soft, bowel sounds audible, no guarding , no rigidity. Extremities no edema. Neuro nonfocal speech clear. Psych appropriate affect Objective Data Active Medications Acetaminophen (Acetaminophen 325 Mg Tablet) 650 mg PO Q6H PRN PRN Reason: Pain, Mild (Pain Scale 1-3) Albuterol Sulfate (Albuterol Sulfate 90 Mcg 8 Gm Inhaler) 2 puff INHALE Q4H PRN PRN Reason: Cough Amitriptyline HCl (Amitriptyline Hcl 25 Mg Tablet) 25 mg PO BEDTIME [facility] Azelastine HCl (Azelastine Hcl Nasal 137 Mcg/[place] 30 Ml) 2 spray NOSTRIL-B BID [facility] Carvedilol (Carvedilol 12.5 Mg Tablet) 12.5 mg PO DAILY [facility]; Protocol Last Admin: 11/28/21 09:37 Dose: 12.5 mg Documented by: JAMES Clopidogrel Bisulfate (Clopidogrel Bisulfate 75 Mg Tablet) 75 mg PO DAILY [facility] Dextrose (Dextrose 50 % 25 Gm/50 Ml Syringe) 25 gm IVPUSH Q15M PRN; Protocol PRN Reason: per Hypoglycemia Standing Ord. Fluticasone/Vilanterol (Fluticasone/Vilanterol 100/25 Blst.W.Dev) 1 puff INHALE RDAILY [facility] Gabapentin (Gabapentin 300 Mg Capsule) 300 mg PO DAILY [facility] Last Admin: 11/28/21 09:44 Dose: 300 mg Documented by: JAMES Gabapentin (Gabapentin 300 Mg Capsule) 600 mg PO BEDTIME [facility] Glucose (Glucose Gel 15 Gm Gel..Gram.) 15 gm PO Q15M PRN; Protocol PRN Reason: per Hypoglycemia Standing Ord. Sodium Chloride (Ns) 1,000 mls @ 100 mls/hr IVCONT .Q10H [facility] Last Admin: 11/28/21 03:09 Dose: 100 mls/hr Documented by: HAYDEN Insulin Human Lispro (Insulin Lispro 100 Unit/Ml 3 Ml Vial) 0 unit SUBCUT QIDACHS [facility]; Protocol Last Admin: 11/28/21 07:56 Dose: 2 unit Documented by: JAMES Comments: poc 178 Lorazepam (Lorazepam 2 Mg/Ml Vial) 1 mg IVPUSH Q8H PRN PRN Reason: Nausea and Vomiting Last Admin: 11/28/21 03:41 Dose: 1 mg Documented by: HAYDEN Melatonin (Melatonin 3 Mg Tablet) 6 mg PO BEDTIME PRN PRN Reason: Insomnia Morphine Sulfate (Morphine Sulfate 2 Mg/Ml Cartridge) 2 mg IVPUSH Q3H PRN; Protocol PRN Reason: Pain, Severe (Pain Scale 7-10) Last Admin: 11/28/21 09:35 Dose: 2 mg Documented by: JAMES Ondansetron HCl (Ondansetron Hcl 4 Mg/2 Ml Vial) 4 mg IVPUSH Q6H PRN PRN Reason: Nausea Last Admin: 11/28/21 07:31 Dose: 4 mg Documented by: JAMES Pantoprazole Sodium (Pantoprazole Sodium 40 Mg/10 Ml Vial) 40 mg IVPUSH DAILY@0630 [facility] Last Admin: 11/28/21 09:36 Dose: 40 mg Documented by: JAMES Pharmacy Consult (Consult Rx Perform Med Rec) 1 each MISCELLANE ONCE PRN PRN Reason: Consult order Sertraline HCl (Sertraline Hcl 100 Mg Tablet) 100 mg PO DAILY [facility] Last Admin: 11/28/21 09:44 Dose: 100 mg Documented by: JAMES Sertraline HCl (Sertraline Hcl 25 Mg Tablet) 25 mg PO DAILY [facility] Last Admin: 11/28/21 09:37 Dose: 25 mg Documented by: JAMES Sodium Chloride (0.9 % Sodium Chloride Flush 3 Ml Syringe) 3 ml IVFLUSH [facility] Last Admin: 11/28/21 09:44 Dose: 3 ml Documented by: JAMES Labs CBC & Chem 7: 11/27/21 09:45 11/27/21 09:45 Labs: Laboratory Results - last 24 hr 11/27/21 11/27/21 11/27/21 12:43 12:55 12:59 VBG pH VBG pCO2 VBG pO2 VBG HCO3 VBG O2 Saturation VBG Base Excess POC Glucose Magnesium 2.1 Troponin I High Sens Urine Color YELLOW Urine Appearance CLEAR Urine pH 6.0 Ur Specific [place] <= 1.005 Urine Protein 1+ H Urine Glucose (UA) 500 H Urine Ketones NEG Urine Blood TRACE Urine Nitrite NEG Ur Leukocyte Esterase NEG Urine RBC 1-4 Urine WBC 0 Ur Squamous Epith Cells TRACE Urine Bacteria NONE Acetone, Qual Negative COVID-19 (KATE) Negative COVID-19 Clin Com See Note 11/27/21 11/27/21 11/27/21 14:15 15:09 15:15 VBG pH 7.39 VBG pCO2 32 VBG pO2 37 VBG HCO3 20 L VBG O2 Saturation 53.0 VBG Base Excess -4.0 POC Glucose 165 H Magnesium Troponin I High Sens 26.9 Urine Color Urine Appearance Urine pH Ur Specific [place] Urine Protein Urine Glucose (UA) Urine Ketones Urine Blood Urine Nitrite Ur Leukocyte Esterase Urine RBC Urine WBC Ur Squamous Epith Cells Urine Bacteria Acetone, Qual COVID-19 (KATE) COVID-19 [facility] Com 11/27/21 11/27/21 11/28/21 18:41 20:52 01:22 VBG pH VBG pCO2 VBG pO2 VBG HCO3 VBG O2 Saturation VBG Base Excess POC Glucose 164 H 152 H 192 H Magnesium Troponin I High Sens Urine Color Urine Appearance Urine pH Ur Specific [place] Urine Protein Urine Glucose (UA) Urine Ketones Urine Blood Urine Nitrite Ur Leukocyte Esterase Urine RBC Urine WBC Ur Squamous Epith Cells Urine Bacteria Acetone, Qual COVID-19 (KATE) COVID-19 Clin Com 11/28/21 11/28/21 07:29 10:42 VBG pH VBG pCO2 VBG pO2 VBG HCO3 VBG O2 Saturation VBG Base Excess POC Glucose 178 H 192 H Magnesium Troponin I High Sens Urine Color Urine Appearance Urine pH Ur Specific [place] Urine Protein Urine Glucose (UA) Urine Ketones Urine Blood Urine Nitrite Ur Leukocyte Esterase Urine RBC Urine WBC Ur Squamous Epith Cells Urine Bacteria Acetone, Qual COVID-19 (KATE) COVID-19 Clin Com Assessment and Plan (1) Chemotherapy induced nausea and vomiting: Status: Acute (2) Intractable vomiting: Status: Acute Plan 46 years old male with PMH of multiple myeloma on chemotherapy, diabetes type 2, CAD, CMP post AICD, CKD stage III, CVA among others who presented to the hospital complaining of nausea and vomiting for the last 3 days.? Intractable nausea vomiting, and abdominal pain Likely Secondary to chemotherapy/persistent symptoms Abdominal CT scan negative for any acute findings, lung bases showed atelectasis, no infiltrate, urinalysis benign Continue IV fluids, IV Zofran , change IV Pepcid to IV Protonix Continue as needed Ativan/Haldol, will add IV morphine for abdominal pain, diabetic diet as tolerated Hyperglycemia secondary to diabetes on insulin Due to decreased by mouth intake with nausea, vomiting, will place on insulin sliding scale ,diabetic diet as tolerated follow blood sugars, hold Lantus Multiple myeloma On chemotherapy outpatient follow-up with Oncology, On Bactrim, Valtrex and nitrofurantoin will hold medications due to intractable nausea and vomiting Chronic kidney disease stage 3 stable follow labs follow labs Cardiomyopathy EF 30-35% status post AICD No acute exacerbation History of CVA/coronary artery disease on aspirin, Lipitor, Coreg, fenofibrate and Plavix Depression continue sertraline, amitriptyline On Bactrim, Valtrex and nitrofurantoin will hold medications due to intractable nausea and vomiting DVT PPX Heparin Code status full code Patient will need 2 night inpatient stay due to chemotherapy-induced intractable nausea vomiting, unable to keep fluids down with hyperglycemia need IV hydration and close blood sugar monitoring. Quality Stroke Does the patient have a stroke diagnosis?: No VTE Prior VTE?: No VTE Risk Level:: Medical - moderate - high VTE Device Contraindication: Treatment Not Indicated VTE Drug Contraindication: N/A - Med Ordered
--- NOTE | 2021-11-28 13:14 | PC.NURSE ---
Medications given late due to medications not being in the [facility]. Awaited pharmacy to bring to unit
[2021-11-28] MEDS: Clopidogrel Bisulfate 75 MG TABLET PO (13:53)
[2021-11-28 18:11] LABS: Glucose, Whole Blood 178 mg/dL (60-115)
[2021-11-28] MEDS: HYDROmorphone HCl 0.5 MG/0.5 ML SYRINGE IVPUSH (18:54)
[2021-11-28 21:12] LABS: Glucose, Whole Blood 129 mg/dL (60-115)
[2021-11-28] MEDS: Gabapentin 300 MG CAPSULE 600 MG PO (21:29)
[2021-11-28] MEDS: Amitriptyline HCl 25 MG TABLET PO (21:30)
[2021-11-29] MEDS: 0.9 % Sodium Chloride 1,000 ML 100 ML IVCONT ×2 (00:05→09:40)
[2021-11-29 01:39] VITALS: BP 156/62; PULSE 83; RESP 18; TEMP 36.9; O2SAT 91
[2021-11-29] MEDS: ondansetron HCL 4 MG/2 ML VIAL IVPUSH ×4 (02:52→20:16)
[2021-11-29] MEDS: Pantoprazole Sodium 40 MG/10 ML VIAL IVPUSH (06:10)
[2021-11-29 07:21] LABS: Hematocrit 25.8 % (42.0-52.0); Hemoglobin 8.4 g/dl (14.0-18.0); Mean Corpuscular HGB Conc 32.6 g/dl (31.0-36.0); Mean Corpuscular Hemoglobin 33.2 pg (27.0-33.0); Mean Platelet Volume 12.1 fL (9.4-12.4); Platelet Count 136 X10*3/uL (160-400); Red Blood Count 2.53 X10*6/uL (4.60-5.80); Red Cell Distribution Width 15.1 % (11.0-16.0)
[2021-11-29 07:37] LABS: Glucose, Whole Blood 169 mg/dL (60-115)
[2021-11-29 07:42] LABS: Anion Gap 13 (12-20); Blood Urea Nitrogen 12 mg/dL (9-16); Calcium 8.1 mg/dL (8.4-10.2); Carbon Dioxide 19 mmol/L (22-29); Chloride 114 mmol/L (96-108); Creatinine Clr Calc Pharmacy 67.4; Estimated Glomerular Filt Rate 53; Glucose Random 174 mg/dL (60-115); Potassium 4.9 mmol/L (3.3-5.1); Sodium 141 mmol/L (135-145)
[2021-11-29] MEDS: Acetaminophen 325 MG TABLET 650 MG PO (07:46)
[2021-11-29] MEDS: Gabapentin 300 MG CAPSULE PO (07:46)
[2021-11-29] MEDS: Sertraline HCL 100 MG TABLET PO (07:47)
[2021-11-29] MEDS: HYDROmorphone HCl 0.5 MG/0.5 ML SYRINGE IVPUSH ×3 (07:47→19:45)
[2021-11-29] MEDS: LORazepam 2 MG/ML VIAL 1 MG IVPUSH ×2 (07:47→16:30)
[2021-11-29] MEDS: carvediloL 12.5 MG TABLET PO ×2 (07:47→07:48)
[2021-11-29] MEDS: Sertraline HCL 25 MG TABLET PO (07:47)
[2021-11-29] MEDS: 0.9 % Sodium Chloride Flush 3 ML SYRINGE IVFLUSH ×3 (07:49→19:47)
[2021-11-29 08:03] VITALS: BP 135/70; PULSE 86; RESP 16; TEMP 36.9; O2SAT 95
[2021-11-29] MEDS: Insulin Lispro 100 UNIT/ML 3 ML VIAL SUBCUT ×4 (08:06→19:44)
[2021-11-29] MEDS: Fluticasone/Vilanterol 100/25 BLST.W.DEV 1 PUFF INHALE (08:12)
[2021-11-29 08:14] VITALS: PULSE 77; RESP 18; O2SAT 90
[2021-11-29] MEDS: Clopidogrel Bisulfate 75 MG TABLET PO (09:33)
--- NOTE | 2021-11-29 12:35 | HO.PM.IMPN ---
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 CVS? regular rate rhythm, Respiratory lungs clear to auscultation, no respiratory distress, no wheeze, no rhonchi. Gastrointestinal abdomen soft nontender to palpation, bowel sounds audible, no guarding , no rigidity. Extremities no edema. Neuro nonfocal speech clear. Psych appropriate affect Objective Data Active Medications Acetaminophen (Acetaminophen 325 Mg Tablet) 650 mg PO Q6H PRN PRN Reason: Pain, Mild (Pain Scale 1-3) Last Admin: 11/29/21 07:46 Dose: 650 mg Documented by: HANY Albuterol Sulfate (Albuterol Sulfate 90 Mcg 8 Gm Inhaler) 2 puff INHALE Q4H PRN PRN Reason: Cough Amitriptyline HCl (Amitriptyline Hcl 25 Mg Tablet) 25 mg PO BEDTIME [facility] Last Admin: 11/28/21 21:30 Dose: 25 mg Documented by: ELOY Azelastine HCl (Azelastine Hcl Nasal 137 Mcg/[place] 30 Ml) 2 spray NOSTRIL-B BID [facility] Last Admin: 11/29/21 11:03 Dose: Not Given Documented by: HANY Non-Admin Reason: not in stock Carvedilol (Carvedilol 12.5 Mg Tablet) 12.5 mg PO DAILY [facility]; Protocol Last Admin: 11/29/21 07:48 Dose: 12.5 mg Documented by: HANY Clopidogrel Bisulfate (Clopidogrel Bisulfate 75 Mg Tablet) 75 mg PO DAILY [facility] Last Admin: 11/29/21 09:33 Dose: 75 mg Documented by: HANY Dextrose (Dextrose 50 % 25 Gm/50 Ml Syringe) 25 gm IVPUSH Q15M PRN; Protocol PRN Reason: per Hypoglycemia Standing Ord. Diphenhydramine HCl (Diphenhydramine Hcl 50 Mg/Ml Vial) 25 mg IVPUSH Q6H PRN PRN Reason: Nausea and Vomiting Fluticasone/Vilanterol (Fluticasone/Vilanterol 100/25 Blst.W.Dev) 1 puff INHALE RDAILY [facility] Last Admin: 11/29/21 08:12 Dose: 1 puff Documented by: LUI Gabapentin (Gabapentin 300 Mg Capsule) 300 mg PO DAILY [facility] Last Admin: 11/29/21 07:46 Dose: 300 mg Documented by: HANY Gabapentin (Gabapentin 300 Mg Capsule) 600 mg PO BEDTIME [facility] Last Admin: 11/28/21 21:29 Dose: 600 mg Documented by: CIEBOM Glucose (Glucose Gel 15 Gm Gel..Gram.) 15 gm PO Q15M PRN; Protocol PRN Reason: per Hypoglycemia Standing Ord. Hydromorphone HCl (Hydromorphone Hcl 0.5 Mg/0.5 Ml Syringe) 0.5 mg IVPUSH Q6H PRN; Protocol PRN Reason: Pain, Severe (Pain Scale 7-10) Last Admin: 11/29/21 07:47 Dose: 0.5 mg Documented by: HANY Sodium Chloride (Ns) 1,000 mls @ 100 mls/hr IVCONT .Q10H [facility] Last Admin: 11/29/21 09:40 Dose: 100 mls/hr Documented by: HANY Insulin Human Lispro (Insulin Lispro 100 Unit/Ml 3 Ml Vial) 0 unit SUBCUT QIDACHS [facility]; Protocol Last Admin: 11/29/21 08:06 Dose: 2 unit Documented by: HANY Lorazepam (Lorazepam 2 Mg/Ml Vial) 1 mg IVPUSH Q8H PRN PRN Reason: Nausea and Vomiting Last Admin: 11/29/21 07:47 Dose: 1 mg Documented by: HANY Melatonin (Melatonin 3 Mg Tablet) 6 mg PO BEDTIME PRN PRN Reason: Insomnia Ondansetron HCl (Ondansetron Hcl 4 Mg/2 Ml Vial) 4 mg IVPUSH Q6H PRN PRN Reason: Nausea Last Admin: 11/29/21 07:38 Dose: 4 mg Documented by: HANY Pantoprazole Sodium (Pantoprazole Sodium 40 Mg/10 Ml Vial) 40 mg IVPUSH DAILY@0630 [facility] Last Admin: 11/29/21 06:10 Dose: 40 mg Documented by: NOELLE Pharmacy Consult (Consult Rx Perform Med Rec) 1 each MISCELLANE ONCE PRN PRN Reason: Consult order Sertraline HCl (Sertraline Hcl 100 Mg Tablet) 100 mg PO DAILY [facility] Last Admin: 11/29/21 07:47 Dose: 100 mg Documented by: HANY Sertraline HCl (Sertraline Hcl 25 Mg Tablet) 25 mg PO DAILY [facility] Last Admin: 11/29/21 07:47 Dose: 25 mg Documented by: HANY Sodium Chloride (0.9 % Sodium Chloride Flush 3 Ml Syringe) 3 ml IVFLUSH QSHIFT [facility] Last Admin: 11/29/21 07:49 Dose: 3 ml Documented by: HANY Labs CBC & Chem 7: 11/29/21 06:10 11/29/21 06:10 Labs: Laboratory Results - last 24 hr 11/28/21 11/28/21 11/29/21 18:07 21:09 06:10 MCV 102.0 H MCH 33.2 H MCHC 32.6 RDW 15.1 Plt Count 136 L D MPV 12.1 Absolute Nucleated RBC 0.000 Nucleated RBC % (auto) 0.0 Anion Gap Estim Creat Clear Calc Estimated GFR POC Glucose 178 H 129 H Random Glucose Calcium 11/29/21 11/29/21 06:10 07:24 MCV MCH MCHC RDW Plt Count MPV Absolute Nucleated RBC Nucleated RBC % (auto) Anion Gap 13 Estim Creat Clear Calc 67.4 Estimated GFR 53 POC Glucose 169 H Random Glucose 174 H D Calcium 8.1 L D Assessment and Plan (1) Chemotherapy induced nausea and vomiting: Status: Acute (2) Intractable vomiting: Status: Acute Plan 46 years old male with PMH of multiple myeloma on chemotherapy, diabetes type 2, CAD, CMP post AICD, CKD stage III, CVA among others who presented to the hospital complaining of nausea and vomiting for the last 3 days.? Intractable nausea vomiting, and abdominal pain. Likely Secondary to chemotherapy/complaining of persistent symptoms although abdominal exam is benign Abdominal CT scan negative for any acute findings, lung bases showed atelectasis, no infiltrate, urinalysis benign Recommend bland diabetic diet Continue IV fluids, IV Zofran , IV Protonix Continue as needed Ativan/Haldol, IV Dilaudid for pain Hyperglycemia secondary to diabetes on insulin Blood sugars stable,due to decreased by mouth intake with nausea, vomiting, continue insulin sliding scale ,diabetic diet as tolerated follow blood sugars, hold Lantus Multiple myeloma On chemotherapy outpatient follow-up with Oncology, On Bactrim, Valtrex and nitrofurantoin , medications on hold due to intractable nausea and vomiting. Chronic kidney disease stage 3 stable, repeat labs shows improvement in creatinine Cardiomyopathy EF 30-35% status post AICD No acute exacerbation History of CVA/coronary artery disease on aspirin, Lipitor, Coreg, fenofibrate and Plavix Depression continue sertraline, and amitriptyline DVT PPX Heparin Code status full code Patient will need continued inpatient hospitalization due to chemotherapy-induced intractable nausea, vomiting, unable to keep fluids down with hyperglycemia need IV hydration and close blood sugar monitoring. Quality Stroke Does the patient have a stroke diagnosis?: No VTE Prior VTE?: No VTE Risk Level:: Medical - moderate - high VTE Device Contraindication: Treatment Not Indicated VTE Drug Contraindication: N/A - Med Ordered
--- NOTE | 2021-11-29 12:59 | PC.NURSE ---
c/o lower abd pain wiith slight nausea. md davidson.
[2021-11-29] MEDS: diphenhydrAMINE HCL 50 MG/ML VIAL 25 MG IVPUSH (13:11)
[2021-11-29 13:14] LABS: Glucose, Whole Blood 182 mg/dL (60-115)
--- NOTE | 2021-11-29 14:11 | PC.NURSE ---
pt ate 25% of lunch
--- NOTE | 2021-11-29 14:55 | PC.NURSE ---
rn to rn given to neyda tay aware of plan of care for transfer to med surg.
[2021-11-29 16:00] VITALS: BP 154/87; PULSE 84; RESP 18; TEMP 36.3; O2SAT 96
[2021-11-29] MEDS: Heparin Sodium,Porcine 5,000 UNIT/ML VIAL 5000 UNIT SUBCUT (16:13)
[2021-11-29 16:31] LABS: Glucose, Whole Blood 235 mg/dL (60-115)
[2021-11-29 16:35] VITALS: BMI 29.7
[2021-11-29 20:00] VITALS: BP 143/80; PULSE 86; RESP 18; TEMP 37.3; O2SAT 98
[2021-11-29 20:01] LABS: Glucose, Whole Blood 174 mg/dL (60-115)
[2021-11-29] MEDS: Amitriptyline HCl 25 MG TABLET PO (20:16)
[2021-11-29] MEDS: Gabapentin 300 MG CAPSULE 600 MG PO (20:16)
--- NOTE | 2021-11-29 20:19 | MHC.PIE ---
p; pt c/o nausea. note; prn zofran given at 1600. i; dr constantino notified; new order, give zofran early now e; will cont to monitor
[2021-11-29 20:35] LABS: Glucose, Whole Blood 173 mg/dL (60-115)
[2021-11-29 23:18] VITALS: BP 116/63; PULSE 90; RESP 16; TEMP 36.3; O2SAT 96
[2021-11-30] MEDS: ondansetron HCL 4 MG/2 ML VIAL IVPUSH ×2 (02:05→07:37)
[2021-11-30] MEDS: LORazepam 2 MG/ML VIAL 1 MG IVPUSH (02:05)
[2021-11-30] MEDS: HYDROmorphone HCl 0.5 MG/0.5 ML SYRINGE IVPUSH ×2 (02:05→07:37)
[2021-11-30 03:33] VITALS: BP 139/40; PULSE 89; RESP 18; TEMP 36.1; O2SAT 92
[2021-11-30] MEDS: diphenhydrAMINE HCL 50 MG/ML VIAL 25 MG IVPUSH ×2 (05:29→13:01)
[2021-11-30] MEDS: Heparin Sodium,Porcine 5,000 UNIT/ML VIAL 5000 UNIT SUBCUT ×2 (05:30→16:43)
[2021-11-30] MEDS: Pantoprazole Sodium 40 MG/10 ML VIAL IVPUSH (05:30)
[2021-11-30 07:08] VITALS: BP 176/92; PULSE 105; RESP 26; TEMP 37.2; O2SAT 91
[2021-11-30] MEDS: Sertraline HCL 25 MG TABLET PO (07:38)
[2021-11-30] MEDS: Clopidogrel Bisulfate 75 MG TABLET PO (07:38)
[2021-11-30] MEDS: carvediloL 12.5 MG TABLET PO (07:38)
[2021-11-30] MEDS: 0.9 % Sodium Chloride Flush 3 ML SYRINGE IVFLUSH ×3 (07:38→20:57)
[2021-11-30] MEDS: Gabapentin 300 MG CAPSULE PO (07:38)
[2021-11-30] MEDS: Sertraline HCL 100 MG TABLET PO (07:38)
[2021-11-30] MEDS: Insulin Lispro 100 UNIT/ML 3 ML VIAL SUBCUT ×3 (07:45→20:57)
[2021-11-30 07:47] LABS: Glucose, Whole Blood 192 mg/dL (60-115)
[2021-11-30 11:09] VITALS: BP 140/85; PULSE 88; RESP 20; TEMP 37.1; O2SAT 90
[2021-11-30 11:10] LABS: Glucose, Whole Blood 203 mg/dL (60-115)
[2021-11-30] MEDS: Lidocaine 4 % Patch ADH..PATCH 1 PATCH TRANSDERMA (11:18)
[2021-11-30] MEDS: Acetaminophen 325 MG TABLET 650 MG PO ×2 (13:01→20:57)
--- NOTE | 2021-11-30 13:41 | P.PNIM_ITS ---
Subjective Subjective Date of Service: 11/30/21 Interval History: Complaining of persistent abdominal pain and nausea, with decreased by mouth intake, had bowel movement yesterday Physical Exam Vital Signs: Vital Signs: Last Vital Signs Temp 98.8 F 11/30/21 11:09 Pulse 88 11/30/21 11:09 Resp 20 11/30/21 11:09 BP 140/85 H 11/30/21 11:09 Pulse Ox 90 L 11/30/21 11:09 BMI result Body Mass Index 29.7 Objective Data Active Medications Acetaminophen (Acetaminophen 325 Mg Tablet) 650 mg PO Q6H PRN PRN Reason: Pain, Mild (Pain Scale 1-3) Last Admin: 11/30/21 13:01 Dose: 650 mg Documented by: GIRMA Albuterol Sulfate (Albuterol Sulfate 90 Mcg 8 Gm Inhaler) 2 puff INHALE Q4H PRN PRN Reason: Cough Amitriptyline HCl (Amitriptyline Hcl 25 Mg Tablet) 25 mg PO BEDTIME [facility] Last Admin: 11/29/21 20:16 Dose: 25 mg Documented by: RAYMOND Azelastine HCl (Azelastine Hcl Nasal 137 Mcg/[place] 30 Ml) 2 spray NOSTRIL-B BID [facility] Last Admin: 11/30/21 07:39 Dose: Not Given Documented by: GIRMA Non-Admin Reason: Med Not Available Carvedilol (Carvedilol 12.5 Mg Tablet) 12.5 mg PO DAILY [facility]; Protocol Last Admin: 11/30/21 07:38 Dose: 12.5 mg Documented by: GIRMA Clopidogrel Bisulfate (Clopidogrel Bisulfate 75 Mg Tablet) 75 mg PO DAILY [facility] Last Admin: 11/30/21 07:38 Dose: 75 mg Documented by: GIRMA Dextrose (Dextrose 50 % 25 Gm/50 Ml Syringe) 25 gm IVPUSH Q15M PRN; Protocol PRN Reason: per Hypoglycemia Standing Ord. Diphenhydramine HCl (Diphenhydramine Hcl 50 Mg/Ml Vial) 25 mg IVPUSH Q6H PRN PRN Reason: Nausea and Vomiting Last Admin: 11/30/21 13:01 Dose: 25 mg Documented by: GIRMA Fluticasone/Vilanterol (Fluticasone/Vilanterol 100/25 Blst.W.Dev) 1 puff INHALE RDAILY [facility] Last Admin: 11/30/21 07:36 Dose: Not Given Documented by: SARAH Non-Admin Reason: Patient Refused Gabapentin (Gabapentin 300 Mg Capsule) 300 mg PO DAILY [facility] Last Admin: 11/30/21 07:38 Dose: 300 mg Documented by: GIRMA Gabapentin (Gabapentin 300 Mg Capsule) 600 mg PO BEDTIME [facility] Last Admin: 11/29/21 20:16 Dose: 600 mg Documented by: RAYMOND Glucose (Glucose Gel 15 Gm Gel..Gram.) 15 gm PO Q15M PRN; Protocol PRN Reason: per Hypoglycemia Standing Ord. Heparin Sodium (Porcine) (Heparin Sodium,Porcine 5,000 Unit/Ml Vial) 5,000 unit SUBCUT Q12H [facility] Last Admin: 11/30/21 05:30 Dose: 5,000 unit Documented by: RAYMOND Insulin Human Lispro (Insulin Lispro 100 Unit/Ml 3 Ml Vial) 0 unit SUBCUT QIDACHS [facility]; Protocol Last Admin: 11/30/21 11:17 Dose: 4 unit Documented by: GIRMA Lidocaine (Lidocaine 4 % Patch Adh..Patch) 1 patch TRANSDERMA DAILY [facility]; Protocol Last Admin: 11/30/21 11:18 Dose: 1 patch Documented by: GIRMA Lorazepam (Lorazepam 2 Mg/Ml Vial) 1 mg IVPUSH Q8H PRN PRN Reason: Nausea and Vomiting Last Admin: 11/30/21 02:05 Dose: 1 mg Documented by: NOELLE Melatonin (Melatonin 3 Mg Tablet) 6 mg PO BEDTIME PRN PRN Reason: Insomnia Ondansetron HCl (Ondansetron Hcl 4 Mg/2 Ml Vial) 4 mg IVPUSH Q6H PRN PRN Reason: Nausea Last Admin: 11/30/21 07:37 Dose: 4 mg Documented by: GIRMA Pantoprazole Sodium (Pantoprazole Sodium 40 Mg/10 Ml Vial) 40 mg IVPUSH DAILY@0630 [facility] Last Admin: 11/30/21 05:30 Dose: 40 mg Documented by: RAYMOND Pharmacy Consult (Consult Rx Perform Med Rec) 1 each MISCELLANE ONCE PRN PRN Reason: Consult order Sertraline HCl (Sertraline Hcl 100 Mg Tablet) 100 mg PO DAILY [facility] Last Admin: 11/30/21 07:38 Dose: 100 mg Documented by: GIRMA Sertraline HCl (Sertraline Hcl 25 Mg Tablet) 25 mg PO DAILY [facility] Last Admin: 11/30/21 07:38 Dose: 25 mg Documented by: GIRMA Sodium Chloride (0.9 % Sodium Chloride Flush 3 Ml Syringe) 3 ml IVFLUSH QSHIFT [facility] Last Admin: 11/30/21 07:38 Dose: 3 ml Documented by: GIRMA Labs CBC & Chem 7: 11/29/21 06:10 11/29/21 06:10 Labs: Laboratory Results - last 24 hr 11/29/21 11/29/21 11/29/21 16:17 19:32 20:15 POC Glucose 235 H 174 H 173 H 11/30/21 11/30/21 07:36 11:01 POC Glucose 192 H 203 H Assessment and Plan (1) Chemotherapy induced nausea and vomiting: Status: Acute (2) Intractable vomiting: Status: Acute Plan 46 years old male with PMH of multiple myeloma on chemotherapy, diabetes type 2, CAD, CMP post AICD, CKD stage III, CVA among others who presented to the hospital complaining of nausea and vomiting for the last 3 days.? Intractable nausea, vomiting, and abdominal pain. Likely Secondary to chemotherapy/complaining of persistent symptoms although abdominal exam is benign Abdominal CT scan negative for any acute findings, lung bases showed atelectasis, no infiltrate, urinalysis benign Recommend bland diabetic diet stable electrolytes , renal function and CBC, low platelet will follow. Continue IV fluids, IV Zofran , IV Protonix, will place on Lidoderm patch likely hyperesthesia, will DC Dilaudid recommended out of bed to chair and ambulation spoke with and updated her about current clinical condition, patient has underlying anxiety and it takes long time for him to get better when he is sick. Hyperglycemia secondary to diabetes on insulin Blood sugars 192, decreased by mouth intake with nausea, vomiting, continue insulin sliding scale ,diabetic diet as tolerated follow blood sugars, hold Lantus Multiple myeloma On chemotherapy outpatient follow-up with Oncology, On Bactrim, Valtrex and nitrofurantoin , medications on hold due to intractable nausea and vomiting. Chronic kidney disease stage 3 stable, repeat labs shows improvement in creatinine Cardiomyopathy EF 30-35% status post AICD No acute exacerbation History of CVA/coronary artery disease on aspirin, Lipitor, Coreg, fenofibrate and Plavix Depression continue sertraline, and amitriptyline and as needed Ativan DVT PPX Heparin Code status full code Patient will need continued inpatient hospitalization due to chemotherapy- induced intractable nausea, vomiting, unable to keep fluids down with hyperglycemia need IV hydration and close blood sugar monitoring. Quality Stroke Does the patient have a stroke diagnosis?: No VTE Prior VTE?: No VTE Risk Level:: Medical - moderate - high VTE Device Contraindication: Treatment Not Indicated VTE Drug Contraindication: N/A - Med Ordered
[2021-11-30 15:29] VITALS: BP 131/76; PULSE 88; RESP 18; TEMP 37.2; O2SAT 97
[2021-11-30 16:30] LABS: Glucose, Whole Blood 152 mg/dL (60-115)
[2021-11-30] MEDS: LORazepam 1 MG TABLET PO (16:51)
[2021-11-30] MEDS: diphenhydrAMINE HCL 50 MG/ML VIAL IVPUSH (17:48)
[2021-11-30 19:14] VITALS: BP 133/77; PULSE 95; RESP 18; TEMP 37.6; O2SAT 100
[2021-11-30 20:08] LABS: Glucose, Whole Blood 184 mg/dL (60-115)
[2021-11-30] MEDS: Gabapentin 300 MG CAPSULE 600 MG PO (20:57)
[2021-11-30] MEDS: Amitriptyline HCl 25 MG TABLET PO (20:57)
[2021-11-30] MEDS: Melatonin 3 MG TABLET 6 MG PO (20:57)
[2021-11-30 23:23] VITALS: BP 135/61; PULSE 85; RESP 18; TEMP 36.7; O2SAT 91
[2021-12-01] VITALS (11 sets, daily range): BP systolic 109–157; BP diastolic 62–85; PULSE 74–97; RESP 16–20; TEMP 36.1–36.8; O2SAT 92–96; BMI 29.7
[2021-12-01 05:58] LABS: Hematocrit 22.6 % (42.0-52.0); Hemoglobin 7.4 g/dl (14.0-18.0); Mean Corpuscular HGB Conc 32.7 g/dl (31.0-36.0); Mean Corpuscular Hemoglobin 32.5 pg (27.0-33.0); Mean Corpuscular Volume 99.1 fL (80.0-98.0); Mean Platelet Volume 10.7 fL (9.4-12.4); Platelet Count 148 X10*3/uL (160-400); Red Blood Count 2.28 X10*6/uL (4.60-5.80); Red Cell Distribution Width 15.7 % (11.0-16.0); White Blood Count 10.1 X10*3/uL (4.8-10.8)
[2021-12-01] MEDS: LORazepam 2 MG/ML VIAL 1 MG IVPUSH ×3 (06:11→21:38)
[2021-12-01] MEDS: Pantoprazole Sodium 40 MG/10 ML VIAL IVPUSH (06:11)
[2021-12-01] MEDS: Heparin Sodium,Porcine 5,000 UNIT/ML VIAL 5000 UNIT SUBCUT ×2 (06:11→17:15)
[2021-12-01 06:17] LABS: Anion Gap 16 (12-20); Blood Urea Nitrogen 14 mg/dL (9-16); Calcium 7.8 mg/dL (8.4-10.2); Carbon Dioxide 16 mmol/L (22-29); Chloride 113 mmol/L (96-108); Creatinine Clr Calc Pharmacy 67.9; Estimated Glomerular Filt Rate 54; Glucose Random 167 mg/dL (60-115); Potassium 4.5 mmol/L (3.3-5.1); Sodium 140 mmol/L (135-145)
[2021-12-01] MEDS: Insulin Lispro 100 UNIT/ML 3 ML VIAL SUBCUT ×4 (08:15→21:31)
[2021-12-01] MEDS: Lidocaine 4 % Patch ADH..PATCH 1 PATCH TRANSDERMA (08:16)
[2021-12-01] MEDS: 0.9 % Sodium Chloride Flush 3 ML SYRINGE IVFLUSH ×3 (08:16→21:40)
[2021-12-01] MEDS: Acetaminophen 325 MG TABLET 650 MG PO (08:16)
[2021-12-01] MEDS: Sertraline HCL 100 MG TABLET PO (08:17)
[2021-12-01] MEDS: Sertraline HCL 25 MG TABLET PO (08:17)
[2021-12-01] MEDS: Clopidogrel Bisulfate 75 MG TABLET PO (08:17)
[2021-12-01] MEDS: Gabapentin 300 MG CAPSULE PO (08:17)
[2021-12-01] MEDS: carvediloL 12.5 MG TABLET PO (08:17)
[2021-12-01 11:35] LABS: Glucose, Whole Blood 210 mg/dL (60-115)
[2021-12-01 11:42] LABS: Glucose, Whole Blood 190 mg/dL (60-115)
[2021-12-01] MEDS: Mag&Al/Sim/Diphenhyd/Lidocaine 10 ML ORAL.SUSP PO ×3 (11:42→21:51)
[2021-12-01] MEDS: Fluticasone/Vilanterol 100/25 BLST.W.DEV 1 PUFF INHALE (11:42)
[2021-12-01] MEDS: Fluconazole 100 MG TABLET PO (14:09)
--- NOTE | 2021-12-01 15:06 | P.PNIM_ITS ---
Subjective Subjective Date of Service: 12/01/21 Interval History: Complaining of discomfort with swallowing, shortness of breath, nausea is improved, has persistent abdominal pain, tolerating solids, no other acute issues denies urinary burning, frequency, no hematemesis, no melena, no fevers no chills. Review of Systems Review of Systems: Yes all other systems are reviewed and are negative Physical Exam Vital Signs: Vital Signs: Last Vital Signs Temp 97.0 F 12/01/21 14:31 Pulse 84 12/01/21 14:31 Resp 16 12/01/21 14:31 BP 117/77 12/01/21 14:31 Pulse Ox 93 12/01/21 11:29 BMI result Body Mass Index 29.7 Const: Other: General awake alert x3 resting in bed mild distress Oral mucosa small white patches back of throat Neck no JVD. CVS? regular rate rhythm, Respiratory lungs clear to auscultation, no respiratory distress, no wheeze, no rhonchi. Gastrointestinal abdomen soft, nontender to palpation, bowel sounds audible, no guarding , no rigidity. Extremities no edema. Neuro nonfocal speech clear. Psych appropriate affect Objective Data Active Medications Acetaminophen (Acetaminophen 325 Mg Tablet) 650 mg PO Q6H PRN PRN Reason: Pain, Mild (Pain Scale 1-3) Last Admin: 12/01/21 08:16 Dose: 650 mg Documented by: GIRMA Albuterol Sulfate (Albuterol Sulfate 90 Mcg 8 Gm Inhaler) 2 puff INHALE Q4H PRN PRN Reason: Cough Amitriptyline HCl (Amitriptyline Hcl 25 Mg Tablet) 25 mg PO BEDTIME [facility] Last Admin: 11/30/21 20:57 Dose: 25 mg Documented by: RAYMOND Azelastine HCl (Azelastine Hcl Nasal 137 Mcg/[place] 30 Ml) 2 spray NOSTRIL-B BID [facility] Last Admin: 12/01/21 08:18 Dose: Not Given Documented by: GIRMA Non-Admin Reason: Med Not Available Carvedilol (Carvedilol 12.5 Mg Tablet) 12.5 mg PO DAILY [facility]; Protocol Last Admin: 12/01/21 08:17 Dose: 12.5 mg Documented by: GIRMA Clopidogrel Bisulfate (Clopidogrel Bisulfate 75 Mg Tablet) 75 mg PO DAILY [facility] Last Admin: 12/01/21 08:17 Dose: 75 mg Documented by: GIRMA Dextrose (Dextrose 50 % 25 Gm/50 Ml Syringe) 25 gm IVPUSH Q15M PRN; Protocol PRN Reason: per Hypoglycemia Standing Ord. Diphenhydramine HCl (Diphenhydramine Hcl 50 Mg/Ml Vial) 50 mg IVPUSH Q6H PRN PRN Reason: Nausea and Vomiting Last Admin: 11/30/21 17:48 Dose: 50 mg Documented by: GIRMA Fluconazole (Fluconazole 100 Mg Tablet) 100 mg PO DAILY [facility] Last Admin: 12/01/21 14:09 Dose: 100 mg Documented by: GIRMA Fluticasone/Vilanterol (Fluticasone/Vilanterol 100/25 Blst.W.Dev) 1 puff INHALE RDAILY [facility] Last Admin: 12/01/21 11:42 Dose: 1 puff Documented by: GIRMA Gabapentin (Gabapentin 300 Mg Capsule) 300 mg PO DAILY [facility] Last Admin: 12/01/21 08:17 Dose: 300 mg Documented by: GIRMA Gabapentin (Gabapentin 300 Mg Capsule) 600 mg PO BEDTIME [facility] Last Admin: 11/30/21 20:57 Dose: 600 mg Documented by: RAYMOND Glucose (Glucose Gel 15 Gm Gel..Gram.) 15 gm PO Q15M PRN; Protocol PRN Reason: per Hypoglycemia Standing Ord. Heparin Sodium (Porcine) (Heparin Sodium,Porcine 5,000 Unit/Ml Vial) 5,000 unit SUBCUT Q12H [facility] Last Admin: 12/01/21 06:11 Dose: 5,000 unit Documented by: RAYMOND Insulin Glargine (Insulin Glargine,Hum.Rec.Anlog 100 Unit/Ml 10 Ml Vial) 12 unit SUBCUT BEDTIME [facility] Insulin Human Lispro (Insulin Lispro 100 Unit/Ml 3 Ml Vial) 0 unit SUBCUT QIDACHS [facility]; Protocol Last Admin: 12/01/21 11:43 Dose: 2 unit Documented by: GIRMA Lidocaine (Lidocaine 4 % Patch Adh..Patch) 1 patch TRANSDERMA DAILY [facility]; Protocol Last Admin: 12/01/21 08:16 Dose: 1 patch Documented by: GIRMA Lidocaine/Diphenhydr/Alum/Mg/Simeth (Mag&Al/Sim/Diphenhyd/Lidocaine 10 Ml Oral.Susp) 10 ml PO Q6H [facility]; Protocol Last Admin: 12/01/21 11:42 Dose: 10 ml Documented by: GIRMA Lorazepam (Lorazepam 2 Mg/Ml Vial) 1 mg IVPUSH Q8H PRN PRN Reason: Nausea and Vomiting Last Admin: 12/01/21 14:07 Dose: 1 mg Documented by: GIRMA Melatonin (Melatonin 3 Mg Tablet) 6 mg PO BEDTIME PRN PRN Reason: Insomnia Last Admin: 11/30/21 20:57 Dose: 6 mg Documented by: RAYMOND Metoclopramide HCl (Metoclopramide Hcl 10 Mg/2 Ml Vial) 10 mg IVPUSH ONCE PRN PRN Reason: Nausea Ondansetron HCl (Ondansetron Hcl 4 Mg/2 Ml Vial) 4 mg IVPUSH Q6H PRN PRN Reason: Nausea Last Admin: 11/30/21 07:37 Dose: 4 mg Documented by: GIRMA Pantoprazole Sodium (Pantoprazole Sodium 40 Mg/10 Ml Vial) 40 mg IVPUSH DAILY@0630 [facility] Last Admin: 12/01/21 06:11 Dose: 40 mg Documented by: RAYMOND Pharmacy Consult (Consult Rx Perform Med Rec) 1 each MISCELLANE ONCE PRN PRN Reason: Consult order Sertraline HCl (Sertraline Hcl 100 Mg Tablet) 100 mg PO DAILY [facility] Last Admin: 12/01/21 08:17 Dose: 100 mg Documented by: GIRMA Sertraline HCl (Sertraline Hcl 25 Mg Tablet) 25 mg PO DAILY [facility] Last Admin: 12/01/21 08:17 Dose: 25 mg Documented by: GIRMA Sodium Chloride (0.9 % Sodium Chloride Flush 3 Ml Syringe) 3 ml IVFLUSH QSHIFT [facility] Last Admin: 12/01/21 08:16 Dose: 3 ml Documented by: GIRMA Labs CBC & Chem 7: 12/01/21 05:25 12/01/21 05:25 Labs: Laboratory Results - last 24 hr 11/30/21 11/30/21 12/01/21 15:33 19:18 05:25 MCV 99.1 H MCH 32.5 MCHC 32.7 RDW 15.7 Plt Count 148 L MPV 10.7 Absolute Nucleated RBC 0.000 Nucleated RBC % (auto) 0.0 Anion Gap Estim Creat Clear Calc Estimated GFR POC Glucose 152 H 184 H Random Glucose Calcium Blood Type Antibody Screen Crossmatch 12/01/21 12/01/21 12/01/21 05:25 07:36 10:48 MCV MCH MCHC RDW Plt Count MPV Absolute Nucleated RBC Nucleated RBC % (auto) Anion Gap 16 Estim Creat Clear Calc 67.9 Estimated GFR 54 POC Glucose 190 H Random Glucose 167 H Calcium 7.8 L Blood Type O Positive Antibody Screen NEGATIVE Crossmatch See Detail 12/01/21 11:31 MCV MCH MCHC RDW Plt Count MPV Absolute Nucleated RBC Nucleated RBC % (auto) Anion Gap Estim Creat Clear Calc Estimated GFR POC Glucose 210 H Random Glucose Calcium Blood Type Antibody Screen Crossmatch Assessment and Plan (1) Chemotherapy induced nausea and vomiting: Status: Acute (2) Intractable vomiting: Status: Acute Plan 46 years old male with PMH of multiple myeloma on chemotherapy, diabetes type 2, CAD, CMP post AICD, CKD stage III, CVA among others who presented to the hospital complaining of nausea and vomiting for the last 3 days.? Intractable nausea, vomiting, and abdominal pain. Induced by chemotherapy Nausea vomiting improved, persistent abdominal pain Continue diabetic diet Encourage out of bed to chair, continue IV Zofran, Protonix, avoid narcotics Acute on chronic anemia chemotherapy-induced, no acute blood loss noted Causing shortness of breath Will transfuse 1 unit and follow hematocrit, reassured patient Throat pain Noted to have Roma Will place patient on Diflucan 100 mg daily and Magic mouthwash Hyperglycemia secondary to diabetes on insulin Blood sugars 192, since tolerating diet will place on low-dose Lantus and continue diabetic diet and insulin sliding scale Multiple myeloma On chemotherapy outpatient follow-up with Oncology, On Bactrim, Valtrex and nitrofurantoin , medications on hold , case discussed oncology Chronic kidney disease stage 3 stable, repeat labs shows improvement in creati nine Cardiomyopathy EF 30-35% status post AICD No acute exacerbation , home medications on hold will resume torsemide prior to discharge History of CVA/coronary artery disease on aspirin 325 mg, Lipitor, Coreg, fenofibrate and Plavix, will recommend to discuss use of aspirin 325 mg versus aspirin 81 mg Depression continue sertraline, and amitriptyline and as needed Ativan DVT PPX Heparin Code status full code Patient will need continued inpatient hospitalization due to shortness of breath related to chemotherapy-induced anemia requiring blood transfusion will follow hematocrit. Quality Stroke Does the patient have a stroke diagnosis?: No VTE Prior VTE?: No VTE Risk Level:: Medical - moderate - high VTE Device Contraindication: Treatment Not Indicated VTE Drug Contraindication: N/A - Med Ordered
[2021-12-01 17:07] LABS: Glucose, Whole Blood 259 mg/dL (60-115)
--- NOTE | 2021-12-01 18:42 | P.EN_ITS ---
46 year old gentleman, with Multiple Myeloma, on RVD treatment. Admitted with abdominal pain, nausea and vomiting of 3 days duration. He is being treated with IV Zofran, Protonix and Benadryl. He mentioned dysphagia. Noted to have oral candidiasis on exam. DATA BASE: CBC: WBC 10.1, HGB 7.4, HCT 22.6, PLT 148. CMP: Lytes WNL, BUN 14, [employer] COOK 1.41, CINDI 7.8. PLAN: He will be started on Diflucan for the oral candidiasis. Anemia: related to myeloma, and chemotherapy. Will transfuse a unit of blood. Will go home tomorrow if stable. He will return next week to resume the chemotherapy. Thanks, CC: Guido Burch.
[2021-12-01 20:54] LABS: Glucose, Whole Blood 276 mg/dL (60-115)
[2021-12-01] MEDS: Azelastine HCl Nasal 137 MCG/Spray 30 ML 2 SPRAY NOSTRIL-B (21:30)
[2021-12-01] MEDS: Gabapentin 300 MG CAPSULE 600 MG PO (21:31)
[2021-12-01] MEDS: Amitriptyline HCl 25 MG TABLET PO (21:31)
[2021-12-01] MEDS: Insulin Glargine,Hum.rec.anlog 100 UNIT/ML 10 ML VIAL 12 UNIT SUBCUT (21:32)
[2021-12-01] MEDS: Melatonin 3 MG TABLET 6 MG PO (21:38)
[2021-12-01 21:54] LABS: CDiff Gene PCR POSITIVE (Negative)
[2021-12-01 22:18] LABS: Leukocytes Stool Qualitative NEGATIVE (NEGATIVE)
[2021-12-01 23:02] LABS: CDiff Toxin Negative (Negative)
[2021-12-01 23:03] LABS: CDIFF Internal ctrl Dots and bkg OK (V)
[2021-12-02 03:30] VITALS: BP 148/52; PULSE 92; RESP 16; TEMP 36.7; O2SAT 96
[2021-12-02] MEDS: Heparin Sodium,Porcine 5,000 UNIT/ML VIAL 5000 UNIT SUBCUT (05:38)
[2021-12-02] MEDS: Pantoprazole Sodium 40 MG/10 ML VIAL IVPUSH (05:38)
[2021-12-02] MEDS: Mag&Al/Sim/Diphenhyd/Lidocaine 10 ML ORAL.SUSP PO ×2 (05:38→11:06)
[2021-12-02 06:44] LABS: Hematocrit 25.3 % (42.0-52.0); Hemoglobin 8.5 g/dl (14.0-18.0)
[2021-12-02 07:34] VITALS: BP 150/92; PULSE 94; RESP 18; O2SAT 94
[2021-12-02 07:39] LABS: Glucose, Whole Blood 206 mg/dL (60-115)
[2021-12-02] MEDS: Clopidogrel Bisulfate 75 MG TABLET PO (08:14)
[2021-12-02] MEDS: Fluconazole 100 MG TABLET PO (08:14)
[2021-12-02] MEDS: Sertraline HCL 100 MG TABLET PO (08:14)
[2021-12-02] MEDS: Gabapentin 300 MG CAPSULE PO (08:14)
[2021-12-02] MEDS: carvediloL 12.5 MG TABLET PO (08:14)
[2021-12-02] MEDS: Acetaminophen 325 MG TABLET 650 MG PO (08:15)
[2021-12-02] MEDS: Sertraline HCL 25 MG TABLET PO (08:15)
[2021-12-02] MEDS: 0.9 % Sodium Chloride Flush 3 ML SYRINGE IVFLUSH (08:16)
[2021-12-02] MEDS: Insulin Lispro 100 UNIT/ML 3 ML VIAL SUBCUT (08:16)
[2021-12-02] MEDS: LORazepam 2 MG/ML VIAL 1 MG IVPUSH (08:18)
--- NOTE | 2021-12-02 12:40 | MHC.CM.PN ---
[facility] NOTE ELECTRONIC MEDICAL RECORD REVIEWED ALONG WITH CASE DISCUSSED WITH STAFF NURSE, PATIENT AWARE OF THE DISCHARGE . PER HOSPITALIST HOME NO SERVICES DISCHARGE PLAN HOME NO SERVICES TRANSPORTATION FAMILY PCP DR DARWIN ARGUELLO PATIENT TO CALL FOR APPOINTMENT FOR POST HOSPITAL DISCHAGRE
--- NOTE | 2021-12-02 16:35 | P.DS_ITS ---
DS: Providers Provider Date of Service: 12/02/21 Date of admission: 11/27/21 16:59 Primary care physician: Guido Burch III, MD DS: Diagnosis Discharge Diagnosis (1) Chemotherapy induced nausea and vomiting: Status: Acute (2) Intractable vomiting: Status: Acute DS: Summary Hospital Course Hospital Course: Chief Complaint: Nausea and vomiting 46-year-old gentleman with past medical history of multiple myeloma received jonathan motherapy last Tuesday, 3 days ago, history of diabetes mellitus type 2 on insulin, coronary artery disease, cardiomyopathy status post AICD, chronic kidney disease stage 3, CVA presented to [facility] due to intractable nausea and vomiting that started 3 nights ago initially patient had nausea followed by vomiting, has been vomiting small amount of bile, decreased by mouth intake associated with mid abdominal and epigastric pain, generalized weakness and lightheadedness, patient treated in the emergency room with IV fluids multiple rounds of antiemetics, Benadryl but continued to have persistent nausea vomiting in able to give food down therefore being admitted to [facility], patient also complained chills with no associated fever no chest pain, no shortness of breath Workup in the emergency room showed elevated blood sugar of 359, creatinine at baseline of 2.75, normal troponin, CBC reveals stable hematocrit, normal WBC count, CT abdomen and pelvis showed diffuse hepatic steatosis, chronic rounded atelectasis, COVID-19 negative, urinalysis showed 500 glucose no bacteria patient is being admitted to [facility] intractable nausea vomiting related to chemotherapy. Hospital course 46 years old male with PMH of multiple myeloma on chemotherapy, diabetes type 2, CAD, CMP post AICD, CKD stage III, CVA among others who presented to the hospital complaining of nausea and vomiting for the last 3 days.? Intractable nausea, vomiting, and abdominal pain,Induced by chemotherapy patient treated aggressively with IV fluid, Zofran, IV Protonix, IV Benadryl, all sympto ms resolved patient tolerating diet, recommend to continue as needed Zofran at home. Acute on chronic anemia chemotherapy-induced, no acute blood loss noted, likely due to chemotherapy patient treated with 1 unit of packed RBC hematocrit improved recommend outpatient follow-up with Dr. Villasenor Dysphagia Noted to have Roma infection patient started on Diflucan 100 mg daily for 10 days recommend to rinse mouth after use of Advair Hyperglycemia secondary to diabetes on insulin recommend to continue diabetic diet and insulin at home. Multiple myeloma continue outpatient follow-up with Oncology continue Bactrim and Valtrex Chronic kidney disease stage 3? stable Cardiomyopathy EF 30-35% status post AICD no acute exacerbation noted, continue all home medications outpatient follow-up with Cardiology History of CVA/coronary artery disease on aspirin 325 mg, Lipitor, Coreg, fenofibrate and Plavix, will recommend to discuss use of aspirin 325 mg versus aspirin 81 mg Depression continue sertraline, and amitriptyline Time Spent with Patient Time attestation: Total time spent providing and/or coordinating discharge services: Discharge coordination time: Greater than 30 minutes Quality: Safe Use of Opioids Does Pt have an Active Cancer Diagnosis on the Problem List?: No Quality: Stroke Does the patient have a stroke diagnosis?: No Physical Exam Vital Signs: Vital Signs: Last Vital Signs Temp 98.1 F 12/02/21 03:30 Pulse 94 12/02/21 07:34 Resp 18 12/02/21 07:34 BP 150/92 H 12/02/21 07:34 Pulse Ox 94 12/02/21 07:34 BMI result Body Mass Index 29.7 Const: Other: General awake alert x3 resting in bed mild distress Oral mucosa few small white spots back of throat Neck no JVD. CVS? regular rate rhythm, Respiratory lungs clear to auscultation, no respiratory distress, no wheeze, no rhonchi. Gastrointestinal abdomen soft, nontender to palpation, bowel sounds audible, no guarding , no rigidity. Extremities no edema. Neuro nonfocal speech clear. Psych appropriate affect DS: Data Data Completed and Pending Completed studies during hospitalization [Text1]: Procedures Transfusion of Nonautologous Red Blood Cells into Peripheral Vein, Percutaneous Approach (02/04/21) Labs on day of discharge: Laboratory Results - last 24 hr 12/01/21 12/01/21 12/01/21 10:48 16:57 18:40 Hgb Hct POC Glucose 259 H Stool Leukocytes, Qual NEGATIVE C. difficile Tox B Gene C. difficile Toxin A&B C. difficile Interpret Crossmatch See Detail 12/01/21 12/01/21 12/02/21 18:40 20:49 05:55 Hgb 8.5 L Hct 25.3 L POC Glucose 276 H Stool Leukocytes, Qual C. difficile Tox B Gene POSITIVE A* C. difficile Toxin A&B Negative C. difficile Interpret SEE NOTE Crossmatch 12/02/21 07:32 Hgb Hct POC Glucose 206 H Stool Leukocytes, Qual C. difficile Tox B Gene C. difficile Toxin A&B C. difficile Interpret Crossmatch Preliminary micro results at discharge 12/01/21 18:40 Stool Culture - Preliminary Stool Normal so far. Discharge Plan Discharge Patient Disposition: Home, Self-Care Discharge Diagnosis: Intractable nausea vomiting due to chemotherapy Acute on chronic anemia Multiple myeloma Referrals: Guido Burch III, MD [Primary Care Provider] - 1 Week Conrado Villasenor MD [Physician] - Discharge Medications: New fluconazole 100 mg Tablet 100 mg PO DAILY Qty: 9 0RF Continued sertraline 100 mg tablet 100 mg PO DAILY 0RF Rx Instructions: one 25 mg tab + one 100 mg tab = 125 mg daily dose valacyclovir [Valtrex] 500 mg Tablet 500 mg PO DAILY Qty: 60 6RF calcium carbonate-vitamin D3 [Calcium 500 + D] 500 mg-10 mcg (400 unit) Tablet 1 tab PO TID Qty: 90 4RF sulfamethoxazole-trimethoprim [Bactrim DS] 800-160 mg Tablet 1 tab PO DAILY Qty: 60 5RF fluticasone propion-salmeterol 250-50 mcg/dose Blister With Device 1 inh INHALATION Q12H 0RF gabapentin 300 mg Capsule 600 mg PO BEDTIME 0RF azelastine 137 mcg (0.1 %) Aerosol,[place] 2 spray INTRANASAL BID 0RF insulin lispro [Humalog KwikPen Insulin] 100 unit/mL Insulin Pen 10 - 18 unit SUBCUT TID 0RF (DME) pen needle, diabetic [BD Ultra-Fine Short Pen Needle] 31 gauge x 5/16 needle subcut QID 0RF fenofibrate nanocrystallized 145 mg tablet 1 tab PO DAILY 0RF tizanidine 4 mg tablet 1 tab PO BEDTIME PRN (Reason: muscle spasm) 0RF loperamide 2 mg Capsule 2 mg PO Q4H PRN (Reason: Diarrhea) Qty: 30 0RF lenalidomide [Revlimid] 15 mg Capsule 15 mg PO DAILY Qty: 21 4RF Rx Instructions: Take on D1-14 of 21D Velcade Schedule, swallow whole with glass of water; do not open, crush, chew , break, or dissolve torsemide 20 mg tablet 3 tab PO BID 0RF aspirin 325 mg tablet 1 tab PO DAILY 0RF carvedilol 12.5 mg tablet 12.5 mg PO DAILY 0RF clopidogrel 75 mg tablet 75 mg PO DAILY 0RF atorvastatin 80 mg tablet 80 mg PO BEDTIME 0RF albuterol sulfate 90 mcg/actuation HFA aerosol inhaler 2 puff inhalation Q4H PRN (Reason: Cough) 0RF docusate sodium 100 mg capsule 100 mg PO BID 0RF Rx Instructions: hold for diarrhea pantoprazole 40 mg tablet,delayed release (DR/EC) 40 mg PO DAILY 0RF sertraline 25 mg tablet 25 mg PO DAILY 0RF Rx Instructions: one 25 mg tab + one 100 mg tab = 125 mg daily dose amitriptyline 25 mg tablet 25 mg PO BEDTIME 0RF gabapentin [Neurontin] 300 mg capsule 300 mg PO DAILY 0RF Lantus Solostar U-100 Insulin 100 unit/mL (3 mL) insulin pen 47 unit subcut QAM 0RF (DME) FreeStyle [place] 14 Day Sensor Kit See Rx Instructions ea topical Q2W Qty: 1 0RF Rx Instructions: As directed ondansetron HCl 4 mg tablet 8 mg PO Q8H PRN (Reason: nausea) 0RF Discontinued nitrofurantoin macrocrystal 100 mg capsule 100 mg PO BID 14 Days Qty: 28 0RF Rx Instructions: must administer with a meal/food Discharge Orders: Discharge Order (Routine); Ordered 12/02/21 Ordered By: Ted Urban Diet: diabetic diet Activity on Discharge: As tolerated Stand Alone Forms: Patient Portal Discharge page Care Plan Goals: Follow diabetic diet, rinse mouth after using steroid inhaler, take Diflucan 1 tablet by mouth daily for 9 more days. Health Concerns: Resume all home medication as before Plan of Treatment: Outpatient follow-up with Dr. Villasenor and primary care physician Assessment: As per discharge summary Discharge Date/Time: 12/02/21 12:03
--- NOTE | 2021-12-19 18:59 | PM.HEMONCPN ---
Medical Summary - Medical Summary Date of Service: 12/01/21 Chief complaint: Follow-up for: Multiple myeloma Medical Summary: DIAGNOSIS: MULTIPLE MYELOMA. Interval History Interval history: 46 year old gentleman, with Multiple Myeloma, on RVD treatment. Admitted with abdominal pain, nausea and vomiting of 3 days duration. He is being treated with IV Zofran, Protonix and Benadryl. He mentioned dysphagia. Noted to have oral candidiasis on exam. Review of Systems - Constitutional Reports no additional constitutional complaints, Reports weakness, Reports weight loss - Eyes Reports no additional eye complaints - ENT Reports no additional ear, nose, mouth, and throat complaints Comments: Dryness of the mouth. Nausea vomiting. Oral candidiasis. - Cardiovascular Reports no additional cardiovascular complaints - Respiratory Reports no additional respiratory complaints - Gastrointestinal Reports no additional gastrointestinal complaints - Genitourinary Genitourinary: Reports no additional male genitourinary complaints - Musculoskeletal Reports no additional musculoskeletal complaints - Integumentary/Breasts Skin/Breast: Reports no additional skin complaints - Neurologic Denies confusion, Denies vertigo, Denies dizziness, Denies syncope, Denies headache(s), Denies weakness - Psychiatric Reports no additional psychiatric complaints - Endocrine Reports no additional endocrine complaints - Hematologic/Lymphatic Reports no additional hematologic/lymphatic complaints - Allergic/Immunologic Reports no additional allergic/immunologic complaints [facility] Medical History: Medical History (Last Reviewed 12/16/21 @ 05:45 by Radha Ramirez MD) CAD (coronary artery disease) CKD (chronic kidney disease) CVA (cerebral vascular accident) Diabetes mellitus HLD (hyperlipidemia) HTN (hypertension) Ischemic cardiomyopathy Monoclonal gammopathy Multiple myeloma Functional capacity: uses cane/walker Patient : No Family History: Family History (Last Reviewed 12/16/21 @ 05:45 by Radha Ramirez MD) Father Diabetes mellitus Esophageal cancer Mother Diabetes mellitus Brother Diabetes mellitus Sister Diabetes mellitus Surgical History: Surgical History (Last Reviewed 12/16/21 @ 05:45 by Radha Ramirez MD) Hx of cardiac cath Onset Date: ~2017 S/P CABG x 2 Onset Date: ~02/2019 Social History: Social History (Last Reviewed 12/16/21 @ 05:45 by Radha Ramirez MD) Living Situation History: Household Members: Family Housing: Apartment Do you presently have visiting nurse or other home services: No Tobacco History: Patient Tobacco Use Status: Never used Tobacco Tobacco use type: Cigarette Substance Use History: Substance Use Type: Marijuana Advance Directives: Advance Directives Date on File: 08/31/21 Occupation Assessmet: service: No Current occupational status: disabled Oncology Screenings - ECOG Performance Status ECOG Performance Status: 1 Home Medications and Allergies Home Medications Medication Instructions Recorded Confirmed Type albuterol sulfate 90 mcg/actuation 2 puff inhalation Q4H PRN Cough 04/25/20 12/15/21 History aerosol inhaler amitriptyline 25 mg tablet 25 mg PO BEDTIME 04/25/20 12/15/21 History atorvastatin 80 mg tablet 80 mg PO BEDTIME 04/25/20 12/15/21 History clopidogrel 75 mg tablet 75 mg PO DAILY 04/25/20 12/15/21 History docusate sodium 100 mg capsule 100 mg PO BID 04/25/20 12/15/21 History gabapentin 300 mg capsule 300 mg PO DAILY 04/25/20 12/15/21 History (Neurontin) insulin glargine 100 unit/mL (3 47 unit subcut QAM 04/25/20 12/15/21 History mL) subcutaneous pen (Lantus Solostar U-100 Insulin) pantoprazole 40 mg tablet,delayed 40 mg PO DAILY 04/25/20 12/15/21 History release sertraline 25 mg tablet 25 mg PO DAILY 04/25/20 12/15/21 History azelastine 137 mcg (0.1 %) nasal 2 spray intranasal BID 02/04/21 12/15/21 History spray aerosol fenofibrate nanocrystallized 145 1 tab PO DAILY 02/04/21 12/15/21 History mg tablet fluticasone 250 mcg-salmeterol 50 1 inh inhalation Q12H 02/04/21 12/15/21 History mcg/dose blistr powdr for inhalation gabapentin 300 mg capsule 600 mg PO BEDTIME 02/04/21 12/15/21 History insulin lispro 100 unit/mL 10 - 18 unit subcut TID 02/04/21 12/15/21 History subcutaneous pen (Humalog KwikPen (U-100) Insulin) pen needle, diabetic 31 gauge x 02/04/21 12/16/21 History 5/16 (BD Ultra-Fine Short Pen Needle) tizanidine 4 mg tablet 1 tab PO BEDTIME PRN muscle spasm 02/04/21 12/15/21 History sertraline 100 mg tablet 100 mg PO DAILY 05/25/21 12/15/21 History flash glucose sensor (FreeStyle #1 ea 11/06/21 12/16/21 History Neville 14 Day Sensor) ondansetron HCl 4 mg tablet 8 mg PO Q8H PRN nausea 11/06/21 12/15/21 History aspirin 325 mg tablet 1 tab PO DAILY 11/27/21 12/15/21 History carvedilol 12.5 mg tablet 12.5 mg PO DAILY 11/27/21 12/15/21 History Allergies Allergy/AdvReac Type Severity Reaction Status Date / Time egg [EGG] Allergy Severe NAUSEA, Verified 11/18/21 14:00 ITCHY THROAT meperidine [From DEMEROL] Allergy Unknown AGITATION Verified 11/18/21 14:00 Exam Vital signs: Vital Signs Temp 98.1 F 12/02/21 03:30 Pulse 94 12/02/21 07:34 Resp 18 12/02/21 07:34 BP 150/92 H 12/02/21 07:34 Pulse Ox 94 12/02/21 07:34 O2 Del Method 12/02/21 07:34 Weight 86.183 kg BMI result Body Mass Index 29.7 - Constitutional Present: no acute distress - Routine HEENT Exam Head: Present: normal inspection Eye: Present: normal appearance ENT: Present: mucous membranes moist Comments: Oral candidiasis. - Routine Neck Exam Present: full ROM - Routine Respiratory Exam Present: CTAB - Routine Cardiovascular Exam Cardiovascular: Present: RRR, S1, S2 - Routine Abdominal Exam Present: soft, nontender - Routine Extremities Exam Present: nontender - Routine Back/Spine/Pelvis Exam Back/Spine: Present: full ROM - Routine Skin Exam Present: intact - Routine Neurological Exam Present: alert, oriented X3 - Routine Psychiatric Exam Present: normal affect Data - Labs CBC & Chem 7: 12/02/21 05:55 12/01/21 05:25 Labs: 11/27/21 09:36 ECG 12 lead EKG Stat IV insert/maintain NOW 11/27/21 09:37 EKG Documentation DIRECTED 11/27/21 09:38 Ondansetron ODT [Zofran ODT] 4 mg TRANSLINGU ONCE ONE 11/27/21 09:45 Complete Blood Count Auto Diff Stat Comprehensive Met. Panel Stat PT with INR [Prothrombin Time INR] Stat PTT [Partial Thromboplastin Time] Stat Troponin-I High Sensitivity Stat 11/27/21 12:34 CT abdomen pelvis wo con Stat Promethazine HCL [Phenergan] 12.5 mg 0.9 % Sodium Chloride [Ns] 50 ml IV ONCE diphenhydrAMINE HCL [Benadryl] 50 mg IVPUSH ONCE ONE 11/27/21 12:45 0.9 % Sodium Chloride [Ns] 1,000 ml IV 999 mls/hr 11/27/21 12:46 Promethazine HCL [Phenergan] 25 mg IV .STK-MED ONE 11/27/21 12:55 Acetone, serum QL Stat Magnesium Stat 11/27/21 12:59 COVID-19 ID NOW (Don) Stat 11/27/21 14:00 0.9 % Sodium Chloride [Ns] 1,000 ml IV 999 mls/hr 11/27/21 14:14 VBG [Venous Blood Gas] Stat 11/27/21 14:15 Venous Blood Gases - POC Routine 11/27/21 15:03 Glucose, blood poc .Now 11/27/21 15:09 Glucose, Whole Blood Routine 11/27/21 15:15 Troponin-I High Sensitivity Stat 11/27/21 16:44 LORazepam [Ativan] 1 mg IVPUSH STAT STA 11/27/21 16:58 Consult Rx Perform Med Rec 1 each MISCELLANE ONCE PRN 11/27/21 16:59 Ambulate QSHIFT WHILE AWAKE IV insert/maintain DAILY@1000,2200 Intake and Output Q8HR Intake and Output Q8HR Vital Signs QSHIFT Code Status Routine Acetaminophen [Tylenol] 650 mg PO Q6H PRN Melatonin 6 mg PO BEDTIME PRN 11/27/21 17:00 0.9 % Sodium Chloride [Ns] 1,000 ml IVCONT 100 mls/hr 11/27/21 17:05 Famotidine/PF [Pepcid/PF] 20 mg IVPUSH BID ondansetron HCL [Zofran] 4 mg IVPUSH Q6H PRN 11/27/21 17:06 Glucose, blood poc QIDACHS Dextrose 50 % [D50] 25 gm IVPUSH Q15M PRN Glucose GeL [Glutose 15] 15 gm PO Q15M PRN 11/27/21 18:41 Glucose, Whole Blood Routine 11/27/21 20:52 Glucose, Whole Blood Routine 11/27/21 21:00 Insulin Lispro [Humalog] See Protocol SUBCUT QIDACHS 11/28/21 00:00 0.9 % Sodium Chloride Flush [NS Flush] 3 ml IVFLUSH QSHIFT 11/28/21 01:22 Glucose, Whole Blood Routine 11/28/21 03:31 LORazepam [Ativan] 1 mg IVPUSH Q8H PRN 11/28/21 07:29 Glucose, Whole Blood Routine ondansetron HCL [Zofran] 4 mg .ROUTE .STK-MED ONE 11/28/21 07:53 Insulin Lispro [Humalog] 1 unit SUBCUT .STK-MED ONE 11/28/21 08:55 Morphine Sulfate 2 mg IVPUSH Q3H PRN 11/28/21 08:56 Albuterol Sulfate [Ventolin] 2 puff INHALE Q4H PRN 11/28/21 09:00 Azelastine HCl Nasal [Astelin Nasal] 2 spray NOSTRIL-B BID Clopidogrel Bisulfate [Plavix] 75 mg PO DAILY Gabapentin [Neurontin] 300 mg PO DAILY Pantoprazole Sodium [Protonix] 40 mg IVPUSH DAILY@0630 Sertraline HCL [Zoloft] 100 mg PO DAILY Sertraline HCL [Zoloft] 25 mg PO DAILY carvediloL [Coreg] 12.5 mg PO DAILY 11/28/21 10:42 Glucose, Whole Blood Routine 11/28/21 12:30 Promethazine HCL [Phenergan] 12.5 mg 0.9 % Sodium Chloride [Ns] 50 ml IV ONCE 11/28/21 13:12 Promethazine HCL [Phenergan] 25 mg IV .STK-MED ONE 11/28/21 14:43 HYDROmorphone HCl [Dilaudid] 0.5 mg IVPUSH Q6H PRN diphenhydrAMINE HCL [Benadryl] 25 mg IVPUSH Q6H PRN 11/28/21 18:07 Glucose, Whole Blood Routine 11/28/21 21:00 Amitriptyline HCl [Elavil] 25 mg PO BEDTIME Gabapentin [Neurontin] 600 mg PO BEDTIME 11/28/21 21:09 Glucose, Whole Blood Routine 11/29/21 06:10 Basic Metabolic Panel Routine Complete Blood Count no Diff AM 11/29/21 07:24 Glucose, Whole Blood Routine 11/29/21 08:00 Fluticasone/Vilanterol 100/25 [Breo Ellipta 100/25] 1 puff INHALE RDAILY 11/29/21 13:07 Glucose, Whole Blood Routine 11/29/21 16:17 Glucose, Whole Blood Routine 11/29/21 16:26 HYDROmorphone HCl [Dilaudid] 0.5 mg IVPUSH ONCE ONE 11/29/21 17:00 Heparin Sodium,Porcine 5,000 unit SUBCUT Q12H 11/29/21 19:32 Glucose, Whole Blood Routine 11/29/21 20:15 Glucose, Whole Blood Routine 11/30/21 07:36 Glucose, Whole Blood Routine 11/30/21 09:00 Lidocaine 4 % Patch [Salonpas 4 % Patch] 1 patch TRANSDERMA DAILY 11/30/21 11:01 Glucose, Whole Blood Routine 11/30/21 15:33 Glucose, Whole Blood Routine 11/30/21 16:46 LORazepam [Ativan] 1 mg PO ONCE ONE Metoclopramide HCl [Reglan] 10 mg IVPUSH ONCE PRN diphenhydrAMINE HCL [Benadryl] 50 mg IVPUSH Q6H PRN 11/30/21 19:18 Glucose, Whole Blood Routine 12/01/21 05:25 Basic Metabolic Panel Routine Complete Blood Count no Diff AM 12/01/21 07:36 Glucose, Whole Blood Routine 12/01/21 10:15 Fluconazole [Diflucan] 100 mg PO DAILY Mag&Al/Sim/Diphenhyd/Lidocaine [Magic Mouthwash] 10 ml PO Q6H 12/01/21 10:48 PRBC [Red Blood Cells] Urgent Type and Screen Urgent 12/01/21 11:31 Glucose, Whole Blood Routine 12/01/21 16:57 Glucose, Whole Blood Routine 12/01/21 18:40 CDiff Gene PCR Urgent WBC Stool [Leukocytes Stool Qualitative] Urgent Stool Culture Urgent 12/01/21 20:49 Glucose, Whole Blood Routine 12/01/21 21:00 Insulin Glargine,Hum.rec.anlog [Lantus] 12 unit SUBCUT BEDTIME 12/02/21 05:55 Hgb & Hct [Hemoglobin and Hematocrit] AM 12/02/21 07:32 Glucose, Whole Blood Routine Laboratory Last Values WBC 10.1 X10*3/uL (4.8-10.8) 12/01/21 05:25 RBC 2.28 X10*6/uL (4.60-5.80) L 12/01/21 05:25 Hgb 8.5 g/dl (14.0-18.0) L 12/02/21 05:55 Hct 25.3 % (42.0-52.0) L 12/02/21 05:55 MCV 99.1 fL (80.0-98.0) H 12/01/21 05:25 MCH 32.5 pg (27.0-33.0) 12/01/21 05:25 MCHC 32.7 g/dl (31.0-36.0) 12/01/21 05:25 RDW 15.7 % (11.0-16.0) 12/01/21 05:25 Plt Count 148 X10*3/uL (160-400) L 12/01/21 05:25 MPV 10.7 fL (9.4-12.4) 12/01/21 05:25 Immature Gran % (Auto) 0.3 % (0.0-0.4) 11/27/21 09:45 Neut % (Auto) 66.8 % (45-73) 11/27/21 09:45 Lymph % (Auto) 15.8 % (20-40) L 11/27/21 09:45 Cross % (Auto) 15.6 % (2-11) H 11/27/21 09:45 Eos % (Auto) 1.3 % (0-4) 11/27/21 09:45 Baso % (Auto) 0.2 % (0-2) 11/27/21 09:45 Lymph # (Auto) 1.0 X10*3/uL (1.2-4.9) L 11/27/21 09:45 Cross # (Auto) 1.0 X10*3/uL (0.1-1.2) 11/27/21 09:45 Eos # (Auto) 0.1 X10*3/uL (0.0-0.4) 11/27/21 09:45 Baso # (Auto) 0.0 X10*3/uL (0.0-0.2) 11/27/21 09:45 Abs Immat Gran (auto) 0.02 X10*3/uL (0.00-0.03) 11/27/21 09:45 Absolute Neuts (auto) 4.1 x10*3/uL (2.0-8.3) 11/27/21 09:45 Absolute Nucleated RBC 0.000 X10*3/uL (0.0-0.012) 12/01/21 05:25 Nucleated RBC % (auto) 0.0 /100WBC (0.0-0.2) 12/01/21 05:25 PT 11.8 SEC (9.9-13.0) 11/27/21 09:45 INR 1.0 (0.9-1.1) 11/27/21 09:45 APTT 34.7 SEC (24.1-38.0) 11/27/21 09:45 VBG pH 7.39 (7.32-7.43) 11/27/21 14:15 VBG pCO2 32 mmHg 11/27/21 14:15 VBG pO2 37 mmHg 11/27/21 14:15 VBG HCO3 20 mmol/L (22-26) L 11/27/21 14:15 VBG O2 Saturation 53.0 % 11/27/21 14:15 VBG Base Excess -4.0 mmol/L 11/27/21 14:15 Sodium 140 mmol/L (135-145) 12/01/21 05:25 Potassium 4.5 mmol/L (3.3-5.1) 12/01/21 05:25 Chloride 113 mmol/L (96-108) H 12/01/21 05:25 Carbon Dioxide 16 mmol/L (22-29) L 12/01/21 05:25 Anion Gap 16 (12-20) 12/01/21 05:25 BUN 14 mg/dL (9-16) 12/01/21 05:25 Creatinine 1.41 mg/dL (0.5-1.4) H 12/01/21 05:25 Estim Creat Clear Calc 67.9 12/01/21 05:25 Estimated GFR 54 12/01/21 05:25 POC Glucose 206 mg/dL (60-115) H 12/02/21 07:32 Random Glucose 167 mg/dL (60-115) H 12/01/21 05:25 Calcium 7.8 mg/dL (8.4-10.2) L 12/01/21 05:25 Magnesium 2.1 mg/dL (1.6-2.6) 11/27/21 12:55 Total Bilirubin 0.4 mg/dL (0.0-1.0) 11/27/21 09:45 AST 44 U/L (5-37) H 11/27/21 09:45 ALT 33 U/L (0-40) 11/27/21 09:45 Alkaline Phosphatase 94 U/L (39-117) 11/27/21 09:45 Troponin I High Sens 26.9 ng/L (<3.5-35.0) 11/27/21 15:15 Total Protein 7.1 g/dL (6.5-8.0) 11/27/21 09:45 Albumin 4.4 g/dL (3.5-5.0) 11/27/21 09:45 Urine Color YELLOW 11/27/21 12:43 Urine Appearance CLEAR 11/27/21 12:43 Urine pH 6.0 (5.0-8.0) 11/27/21 12:43 Ur Specific [place] <= 1.005 (1.005-1.025) 11/27/21 12:43 Urine Protein 1+ MG/DL (NEG-TRACE) H 11/27/21 12:43 Urine Glucose (UA) 500 MG/DL (NEG) H 11/27/21 12:43 Urine Ketones NEG MG/DL (NEG) 11/27/21 12:43 Urine Blood TRACE (NEG) 11/27/21 12:43 Urine Nitrite NEG (NEG) 11/27/21 12:43 Ur Leukocyte Esterase NEG (NEG) 11/27/21 12:43 Urine RBC 1-4 /HPF (0) 11/27/21 12:43 Urine WBC 0 /HPF (0-4) 11/27/21 12:43 Ur Squamous Epith Cells TRACE /LPF 11/27/21 12:43 Urine Bacteria NONE /LPF 11/27/21 12:43 Stool Leukocytes, Qual NEGATIVE (NEGATIVE) 12/01/21 18:40 Acetone, Qual Negative (Negative) 11/27/21 12:55 C. difficile Tox B Gene POSITIVE (Negative) A* 12/01/21 18:40 C. difficile Toxin A&B Negative (Negative) 12/01/21 18:40 C. difficile Interpret SEE NOTE 12/01/21 18:40 COVID-19 (KATE) Negative (Negative) 11/27/21 12:59 COVID-19 Clin Com See Note 11/27/21 12:59 Blood Type O Positive 12/01/21 10:48 Antibody Screen NEGATIVE 12/01/21 10:48 Crossmatch See Detail 12/01/21 10:48 - Imaging Radiologist's impression: ITS Impressions Abdomen/Pelvis CT 11/27/21 13:35 IMPRESSION: * No acute imaging abnormalities in the abdomen or pelvis. No inflammatory change or obstruction along the gastrointestinal tract. * Diffuse hepatic steatosis. * Chronic rounded atelectasis is present in the posterior left lower lobe. * The blood pool is relatively hypodense compared to myocardium. This can be a manifestation of anemia. Assessment and Plan Patient Active problem list reviewed?: Yes (1) Multiple myeloma Status: Acute Assessment and plan: 46-year-old gentleman with history of multiple myeloma. He is currently on RVD chemotherapy. He presented with nausea vomiting and diarrhea. He is significantly anemic. DATA BASE: CBC: WBC 10.1, HGB 7.4, HCT 22.6, PLT 148. CMP: Lytes WNL, BUN 14, [employer] 1.41, CINDI 7.8. PLAN: He will be started on Diflucan for the oral candidiasis. Anemia: related to myeloma, and chemotherapy. Will transfuse a unit of blood. Will go home tomorrow if stable. He will return next week to resume the chemotherapy. Thanks, CC: Guido Burch. Patient was seen on 12/01/2021. That is the date of service. - Time Spent With Patient Time Spent with Patient (in minutes): 30
== END 2021-12-02 12:03 | disposition home or self-care (01) | DRG 249 ==
LOC: HO.ED 16:00 → HO.EDOVER 17:06 → HO.S3 11-29 14:29
PROVIDERS: Internal Medicine; Physician Assistant; Admitting Provider Hospitalist; Emergency Provider Emergency Medicine; PCP Internal Medicine; Visit Provider Hospitalist
DX: R11.2 Nausea with vomiting, unspecified (principal); B37.0 Candidal stomatitis; I42.9 Cardiomyopathy, unspecified; C90.00 Multiple myeloma not having achieved remission; E11.22 Type 2 diabetes mellitus with diabetic chronic kidney disease; D63.0 Anemia in neoplastic disease; D64.81 Anemia due to antineoplastic chemotherapy; T45.1X5A Adverse effect of antineoplastic and immunosuppressive drugs, initial encounter; I25.10 Atherosclerotic heart disease of native coronary artery without angina pectoris; I12.9 Hypertensive chronic kidney disease with stage 1 through stage 4 chronic kidney disease, or unspecified chronic kidney disease; N18.30 Chronic kidney disease, stage 3 unspecified; E11.65 Type 2 diabetes mellitus with hyperglycemia; F32.A Depression, unspecified; Z20.822 Contact with and (suspected) exposure to COVID-19; Z86.73 Personal history of transient ischemic attack (TIA), and cerebral infarction without residual deficits; Z95.810 Presence of automatic (implantable) cardiac defibrillator; Z95.1 Presence of aortocoronary bypass graft; Z95.5 Presence of coronary angioplasty implant and graft; Z56.0 Unemployment, unspecified; Z88.8 Allergy status to other drugs, medicaments and biological substances; Z79.4 Long term (current) use of insulin; Z79.02 Long term (current) use of antithrombotics/antiplatelets; Z79.51 Long term (current) use of inhaled steroids; Z79.82 Long term (current) use of aspirin; Z79.899 Other long term (current) drug therapy
CPT/HCPCS: 36415; 74176; 80048; 80053; 81001; 82009; 82803; 82947; 83735; 84484; 85014; 85018; 85025; 85027; 85610; 85730; 86850; 86900; 86901; 86923; 87045; 87046; 87324; 87493; 87635; 89055; 93005; 94640; 96361; 96374; 96375; 99285; J1170; J1200; J2060; J2270; J2405; J2550; P9016

== ENCOUNTER 2021-12-15 16:53 | Inpatient (IN) | payer OTHER, SELFPAY ==
--- NOTE | ~2021-12-15 | CT_ITS ---
EXAMINATION: CT ABDOMEN AND PELVIS WITHOUT CONTRAST CLINICAL INFORMATION: Acute renal failure with history of MM. COMPARISON: CT abdomen pelvis 11/27/2021. TECHNIQUE: Multidetector volumetric imaging was performed from the superior aspect of the liver through the pubic symphysis. Sagittal and coronal reformatted images were obtained on the technologist's workstation. This CT examination was performed using dose optimization techniques as appropriate, variously including the following: *Automated exposure control *Adjustment of mA and/or kV according to patient size (this includes techniques or standardized protocols for targeted exams where dose is matched to indication/reason for exam; i.e. extremities or head) *Use of iterative reconstruction technique DLP: 622 mGy-cm FINDINGS: LUNG BASES: The heart size is borderline enlarged. There is chronic scarring or atelectasis left lower lobe with loculated left posterior pleural thickening or effusion. LIVER, GALLBLADDER, AND BILIARY TREE: The liver is normal in size, shape, and attenuation. No focal hepatic lesion or biliary ductal dilatation is present. The gallbladder has been surgically removed. PANCREAS: Unremarkable. SPLEEN: Unremarkable. ADRENAL GLANDS: Unremarkable. KIDNEYS AND URETERS: The kidneys are normal in size, shape, and attenuation. No hydronephrosis, hydroureter, or calculi seen. No perinephric stranding. BLADDER: There is mild anterior bladder wall thickening. GASTROINTESTINAL TRACT: There is scattered stool and gas seen throughout the colon without any significant distention. The small bowel loops are normal caliber. Appendix is normal caliber. The stomach is distended with recently ingested food ABDOMINAL WALL: No significant hernia is appreciated. LYMPH NODES: Normal. VASCULAR: Unremarkable. PELVIC VISCERA: The prostate gland is normal size. There is vascular calcification of seminal vesicles, unchanged to last CT and can be seen with diabetes. OSSEOUS STRUCTURES: No aggressive lytic or sclerotic process seen. CT/CT abdomen pelvis wo con IMPRESSION: No acute intra-abdominal process seen. Mild constipation. Fleischner guidelines were followed.
--- NOTE | ~2021-12-15 | XR_ITS ---
EXAMINATION: XR CHEST CLINICAL INFORMATION: Fluid overload. COMPARISON: Chest x-ray 08/28/2021 TECHNIQUE: Single view of the chest was obtained. FINDINGS: The lungs are well-expanded and clear of acute process. Heart size is mildly enlarged. The pulmonary vascularity is normal. A single left chest wall cardiac defibrillator/cardioverter is stable and unchanged. There are median sternotomy sutures and mediastinal latricia from previous CABG. No gross bony abnormality. XR/XR chest 1V IMPRESSION: No acute process Mild cardiomegaly, stable.
--- NOTE | 2021-12-15 17:00 | ED.GENADULT ---
HPI - General Adult General Chief complaint: Recheck/Abnormal Lab/Rx Stated complaint: Kidney Function Time Seen by Provider: 12/15/21 16:59 Source: patient Mode of arrival: ambulatory Limitations: no limitations History of Present Illness HPI narrative: 46 years old male with PMH of multiple myeloma on chemotherapy, diabetes type 2, CAD, CMP post AICD, CKD stage III, CVA?sent by patient's oncologist for acute renal failure. Patient been nauseated taking Zofran 2 days ago patient was vomiting all day but since then able to drink liquids but very nauseated. Lab workup showed elevated BUN/creatinine to 52/4.81 it was 14/1.41 on 12/01. Patient received IV fluid at oncologist office and sent here for further evaluation. Patient is on torsemide 3 tablets(60 mg) p.o. b.i.d. which she has been taking for a long time. Patient feels very nauseated although able to take fluids. According to patient oncologist patient multiple myeloma is stable and improving and does not think as the cause for acute renal failure Related Data Home Medications Medication Instructions Recorded Confirmed albuterol sulfate 90 mcg/actuation 2 puff inhalation Q4H PRN Cough 04/25/20 12/15/21 aerosol inhaler amitriptyline 25 mg tablet 25 mg PO BEDTIME 04/25/20 12/15/21 atorvastatin 80 mg tablet 80 mg PO BEDTIME 04/25/20 12/15/21 clopidogrel 75 mg tablet 75 mg PO DAILY 04/25/20 12/15/21 docusate sodium 100 mg capsule 100 mg PO BID 04/25/20 12/15/21 gabapentin 300 mg capsule 300 mg PO DAILY 04/25/20 12/15/21 (Neurontin) insulin glargine 100 unit/mL (3 47 unit subcut QAM 04/25/20 12/15/21 mL) subcutaneous pen (Lantus Solostar U-100 Insulin) pantoprazole 40 mg tablet,delayed 40 mg PO DAILY 04/25/20 12/15/21 release sertraline 25 mg tablet 25 mg PO DAILY 04/25/20 12/15/21 azelastine 137 mcg (0.1 %) nasal 2 spray intranasal BID 02/04/21 12/15/21 spray aerosol fenofibrate nanocrystallized 145 1 tab PO DAILY 02/04/21 12/15/21 mg tablet fluticasone 250 mcg-salmeterol 50 1 inh inhalation Q12H 02/04/21 12/15/21 mcg/dose blistr powdr for inhalation gabapentin 300 mg capsule 600 mg PO BEDTIME 02/04/21 12/15/21 insulin lispro 100 unit/mL 10 - 18 unit subcut TID 02/04/21 12/15/21 subcutaneous pen (Humalog KwikPen (U-100) Insulin) pen needle, diabetic 31 gauge x 02/04/21 11/27/2111/16 (BD Ultra-Fine Short Pen Needle) tizanidine 4 mg tablet 1 tab PO BEDTIME PRN muscle spasm 02/04/21 12/15/21 sertraline 100 mg tablet 100 mg PO DAILY 05/25/21 12/15/21 flash glucose sensor (FreeStyle #1 ea 11/06/21 11/27/21 [place] 14 Day Sensor) ondansetron HCl 4 mg tablet 8 mg PO Q8H PRN nausea 11/06/21 12/15/21 aspirin 325 mg tablet 1 tab PO DAILY 11/27/21 12/15/21 carvedilol 12.5 mg tablet 12.5 mg PO DAILY 11/27/21 12/15/21 torsemide 20 mg tablet 3 tab PO BID 11/27/21 12/15/21 Previous Rx's Medication Instructions Recorded valacyclovir 500 mg tablet 500 mg PO DAILY #60 tabs 05/25/21 (Valtrex) loperamide 2 mg capsule 2 mg PO Q4H PRN Diarrhea #30 caps 09/01/21 calcium carbonate 500 mg-vitamin 1 tab PO TID #90 tabs 09/22/21 D3 10 mcg (400 unit) tablet (Calcium 500 + D) lenalidomide 15 mg capsule 15 mg PO DAILY #21 caps 11/05/21 (Revlimid) sulfamethoxazole 800 1 tab PO DAILY #60 tabs 11/16/21 mg-trimethoprim 160 mg tablet (Bactrim DS) Allergies Allergy/AdvReac Type Severity Reaction Status Date / Time egg [EGG] Allergy Severe NAUSEA, Verified 11/18/21 14:00 ITCHY THROAT meperidine [From DEMEROL] Allergy Unknown AGITATION Verified 11/18/21 14:00 Review of Systems Review of Systems: Yes all other systems are reviewed and are negative PMFSH Past Medical History Medical History CAD (coronary artery disease) CKD (chronic kidney disease) CVA (cerebral vascular accident) Diabetes mellitus HLD (hyperlipidemia) HTN (hypertension) Ischemic cardiomyopathy Monoclonal gammopathy Multiple myeloma Surgical History Hx of cardiac cath (~2017) S/P CABG x 2 (~02/2019) Family History Family History Father Diabetes mellitus Esophageal cancer Mother Diabetes mellitus Brother Diabetes mellitus Sister Diabetes mellitus Social History Social History Household Members: Family Housing: Apartment Do you presently have visiting nurse or other home services: No Alcohol intake: never Patient Tobacco Use Status: Never used Tobacco Tobacco use type: Cigarette Smoked in Last 30 Days: Yes Use of substances other than those prescribed or required for medical reasons: Yes Substance Use Type: Marijuana Advance Directives: Yes Advance Directives on File: Yes Advance Directives Date on File: 08/31/21 service: No Current occupational status: unemployed Physical Exam ED Vital Signs: Vital Signs - 24 hr 12/15/21 17:03 12/15/21 17:14 12/15/21 18:00 Temperature 97.2 F 97.2 F Pulse Rate 64 68 68 Respiratory Rate 14 18 15 Blood Pressure 131/74 131/74 129/82 Pulse Oximetry 99 100 99 Oxygen Delivery Method Room Air Room Air Room Air BMI result Body Mass Index 28.1 Appearance: Alert. Oriented X3. No acute distress. Eyes: pallor+ ENT: Pharynx normal. Oral Mucosa moist Neck: Normal inspection. Neck supple. CVS: Normal heart rate and rhythm. Pulses normal. Respiratory: No respiratory distress. Equal air entry bilateral, no wheezing/rales/rhonchi Abdomen: Soft and nontender. Bowel sounds are present, no mass palpable, no CVA tenderness Skin: Skin warm and dry. Normal skin color. Normal skin turgor. Extremities: No lower extremity edema. No calf tenderness Neuro: Oriented X 3. No motor deficit. No sensory deficit.No cerebellar signs , cranial nerves II-XII intact Medical Decision Making MDM Narrative Medical decision making narrative: Patient with acute on chronic renal failure etiology not very clear likely prerenal will hydrate and follow the labs CT scan of the negative for acute obstruction/pathology Lab Data Labs: Lab Results 12/15/21 Range/Units 19:40 Urine Color YELLOW Urine Appearance CLEAR Urine pH 6.0 (5.0-8.0) Ur Specific [place] 1.010 (1.005-1.025) Urine Protein NEG (NEG-TRACE) MG/DL Urine Glucose (UA) NEG (NEG) MG/DL Urine Ketones NEG (NEG) MG/DL Urine Blood NEG (NEG) Urine Nitrite NEG (NEG) Ur Leukocyte Esterase NEG (NEG) Imaging Data CT scan - abdomen: Radiologist's impression: CT/CT abdomen pelvis wo con IMPRESSION: No acute intra-abdominal process seen. ? Mild constipation. ? Discharge Plan Discharge Clinical Impression: Acute renal failure superimposed on stage 3 chronic kidney disease Patient Disposition: Admitted As Inpatient
[2021-12-15 17:03] VITALS: BP 131/74; PULSE 64; RESP 14; TEMP 36.2; O2SAT 99; BMI 28.1
[2021-12-15 17:14] VITALS: BP 131/74; PULSE 68; RESP 18; TEMP 36.2; O2SAT 100
[2021-12-15] MEDS: 0.9 % Sodium Chloride 1,000 ML 999 ML IV (17:44)
[2021-12-15 18:00] VITALS: BP 129/82; PULSE 68; RESP 15; O2SAT 99
--- NOTE | 2021-12-15 19:34 | PHA.MEDREC ---
Pharmacy Consult ? Medication Reconciliation Pharmacy has completed the medication reconciliation.
[2021-12-15 19:48] LABS: Appearance Urine CLEAR; Color Urine YELLOW; Glucose Urine UA NEG (NEG); Leukocyte Esterase Urine NEG (NEG); Nitrite Urine NEG (NEG); Urine Blood NEG (NEG); Urine Ketones NEG (NEG); Urine Protein NEG (NEG-TRACE)
--- NOTE | 2021-12-15 20:23 | PM.IMHP ---
History of Present Illness Date of Service: 12/15/21 Chief Complaint: abnormal labs 46-year-old male with past medical history of multiple myeloma on chemotherapy, diabetes, CAD, CMP status post AICD, CKD, CVA among others who presents to the hospital with complaints of abnormal labs. Patient is Austrian-speaking and history is obtained with the help of an anesthesiology physician assistant. Patient reports that he went to his oncologist today did routine labs and was found to have kidney failure and therefore was sent to the hospital. Patient is complaining of bilateral flank pain worse on the right, he is complaining of suprapubic pain, but denies any urinary symptoms including no dysuria urgency or frequency. He reports no fever or chills, no chest pain, no shortness of breath, no abdominal pain, no diarrhea constipation, no lower extremity edema. No headache or change in vision. He reports nausea and had vomiting about 3 days ago that has now resolved. He reports adequate oral intake. Of note patient was seen in the hospital and discharged on 12/02 after being treated for intractable nausea vomiting induced by chemotherapy. He was also found to have acute on chronic anemia as well as mild MAURI. On Arrival to the ED hemodynamically stable with no significant abnormal vitals Labs are significant for WBC count of 8.2, hemoglobin of 9.9, hematocrit 29.8, BUN of 52, creatinine of 4.18 with a baseline of around 1.41, Abdomen pelvic CT shows no intra-abdominal process, mild constipation. UA negative for any evidence of infection Previous to start her on IV fluids, will be admitted for further management Review of Systems Review of Systems: Yes all other systems are reviewed and are negative [facility] Medical History CAD (coronary artery disease) CKD (chronic kidney disease) CVA (cerebral vascular accident) Diabetes mellitus HLD (hyperlipidemia) HTN (hypertension) Ischemic cardiomyopathy Monoclonal gammopathy Multiple myeloma Family History Father Diabetes mellitus Esophageal cancer Mother Diabetes mellitus Brother Diabetes mellitus Sister Diabetes mellitus Surgical History Hx of cardiac cath (~2017) S/P CABG x 2 (~02/2019) Social History Household Members: Family Housing: Apartment Do you presently have visiting nurse or other home services: No Alcohol intake: never Patient Tobacco Use Status: Never used Tobacco Tobacco use type: Cigarette Smoked in Last 30 Days: Yes Use of substances other than those prescribed or required for medical reasons: Yes Substance Use Type: Marijuana Advance Directives: Yes Advance Directives on File: Yes Advance Directives Date on File: 08/31/21 service: No Current occupational status: unemployed Meds Allergies Allergy/AdvReac Type Severity Reaction Status Date / Time egg [EGG] Allergy Severe NAUSEA, Verified 11/18/21 14:00 ITCHY THROAT meperidine [From DEMEROL] Allergy Unknown AGITATION Verified 11/18/21 14:00 Home Medications Medication Instructions Recorded Confirmed Last Taken Type albuterol sulfate 90 mcg/actuation 2 puff inhalation Q4H PRN Cough 04/25/20 12/15/21 11/25/21 History aerosol inhaler amitriptyline 25 mg tablet 25 mg PO BEDTIME 04/25/20 12/15/21 11/25/21 History atorvastatin 80 mg tablet 80 mg PO BEDTIME 04/25/20 12/15/21 11/25/21 History clopidogrel 75 mg tablet 75 mg PO DAILY 04/25/20 12/15/21 11/25/21 History docusate sodium 100 mg capsule 100 mg PO BID 04/25/20 12/15/21 11/25/21 History gabapentin 300 mg capsule 300 mg PO DAILY 04/25/20 12/15/21 11/25/21 History (Neurontin) insulin glargine 100 unit/mL (3 47 unit subcut QAM 04/25/20 12/15/21 11/25/21 History mL) subcutaneous pen (Lantus Solostar U-100 Insulin) pantoprazole 40 mg tablet,delayed 40 mg PO DAILY 04/25/20 12/15/21 11/25/21 History release sertraline 25 mg tablet 25 mg PO DAILY 04/25/20 12/15/21 11/25/21 History azelastine 137 mcg (0.1 %) nasal 2 spray intranasal BID 02/04/21 12/15/21 11/25/21 History spray aerosol fenofibrate nanocrystallized 145 1 tab PO DAILY 02/04/21 12/15/21 11/25/21 History mg tablet fluticasone 250 mcg-salmeterol 50 1 inh inhalation Q12H 02/04/21 12/15/21 11/25/21 History mcg/dose blistr powdr for inhalation gabapentin 300 mg capsule 600 mg PO BEDTIME 02/04/21 12/15/21 11/25/21 History insulin lispro 100 unit/mL 10 - 18 unit subcut TID 02/04/21 12/15/21 11/25/21 History subcutaneous pen (Humalog KwikPen (U-100) Insulin) pen needle, diabetic 31 gauge x 02/04/21 12/16/21 11/25/21 History 5/16 (BD Ultra-Fine Short Pen Needle) tizanidine 4 mg tablet 1 tab PO BEDTIME PRN muscle spasm 02/04/21 12/15/21 11/25/21 History sertraline 100 mg tablet 100 mg PO DAILY 05/25/21 12/15/21 11/25/21 History flash glucose sensor (FreeStyle #1 ea 11/06/21 12/16/21 11/25/21 History Neville 14 Day Sensor) ondansetron HCl 4 mg tablet 8 mg PO Q8H PRN nausea 11/06/21 12/15/21 11/25/21 History aspirin 325 mg tablet 1 tab PO DAILY 11/27/21 12/15/21 11/25/21 History carvedilol 12.5 mg tablet 12.5 mg PO DAILY 11/27/21 12/15/21 11/25/21 History torsemide 20 mg tablet 3 tab PO BID 11/27/21 12/15/21 11/25/21 History Physical Exam Vital Signs and Narrative: Vital Signs: Last Vital Signs Temp 97.2 F 12/15/21 17:14 Pulse 68 12/15/21 18:00 Resp 15 12/15/21 18:00 BP 129/82 12/15/21 18:00 Pulse Ox 99 12/15/21 18:00 O2 Del Method 12/15/21 18:00 BMI result Body Mass Index 28.1 Const: Other: Ill-appearing General: cooperative and no acute distress Orientation/consciousness: patient oriented x3 Eyes: General: appearance normal, both eyes and all related structures Resp: Effort & Inspection: normal respiratory effort Auscultation: clear to auscultation bilaterally Cardio: Rate: regular rate Rhythm: regular rhythm GI: Palpation (GI): Soft to palpation Auscultation: normal bowel sounds : Other: Patient has CVA tenderness Bilaterally Skin: General skin exam: no rashes or lesions noted Neuro: General: patient oriented x3 Cognition (Neuro): normal cognition Extrem: General: Yes normal to inspection and Yes no pedal edema Results Labs CBC and Chem 7: 12/16/21 04:16 12/16/21 04:16 Labs: Laboratory Results - last 24 hr 12/15/21 19:40 Urine Color YELLOW Urine Appearance CLEAR Urine pH 6.0 Ur Specific [place] 1.010 Urine Protein NEG Urine Glucose (UA) NEG Urine Ketones NEG Urine Blood NEG Urine Nitrite NEG Ur Leukocyte Esterase NEG Imaging Radiologist's Impressions: Impressions Abdomen/Pelvis CT 12/15/21 18:46 IMPRESSION: No acute intra-abdominal process seen. Mild constipation. Fleischner guidelines were followed. Assessment and Plan (1) Acute renal failure superimposed on stage 3 chronic kidney disease: Status: Acute (2) Multiple myeloma: Status: Acute Plan This is a 46-year-old male with past medical history of multiple myeloma on chemotherapy, CKD among others who presents to the hospital with abnormal labs found to have MAURI and CKD # MAURI on CKD - likely secondary to progressing multiple myeloma verses prerenal secondary to dehydration - patient started on IV fluids - follow BMP - Hematology-Oncology consulted #Multiple myeloma - continue outpatient follow-up with Oncology # Chronic UTI - pt w history of chronic UTI - Currently UA is negative - Does have CVA tenderness - no other evidence of infection - afebrile, no leukocytosis - will continue Bactrim and Valtrex # Cardiomyopathy EF 30-35% status post AICD no acute exacerbation noted, continue all home medications outpatient follow-up with Cardiology # History of CVA/coronary artery disease - continue home meds # Depression - continue sertraline, and amitriptyline DVT prophylaxis: Heparin subQ Given the severe MAURI and need for IV fluids and further monitoring patient will require a minimum 2 night hospital stay for further management Quality Stroke Does the patient have a stroke diagnosis?: No VTE Prior VTE?: No VTE Risk Level:: Medical - moderate - high VTE Device Contraindication: Treatment Not Indicated VTE Drug Contraindication: N/A - Med Ordered
[2021-12-15] MEDS: Lactated Ringers 1,000 ML 100 ML IVCONT (21:46)
[2021-12-16] VITALS (10 sets, daily range): BP systolic 129–153; BP diastolic 66–91; PULSE 67–117; RESP 10–20; TEMP 36.2–36.7; O2SAT 96–100
[2021-12-16] MEDS: HYDROmorphone HCl 0.5 MG/0.5 ML SYRINGE SUBCUT ×3 (02:43→13:42)
--- NOTE | 2021-12-16 02:52 | PC.NURSE ---
Patient medicated for back pain according to EMR with effect
[2021-12-16 04:36] LABS: MANUAL DIFF FLAG NO
[2021-12-16 04:37] LABS: Basophils Absolute Auto 0.1 X10*3/uL (0.0-0.2); Basophils Percent Auto 0.7 % (0-2); Eosinophils Absolute Auto 0.2 X10*3/uL (0.0-0.4); Eosinophils Percent Auto 2.3 % (0-4); Hematocrit 30.2 % (42.0-52.0); Imm Gran Abs Auto 0.03 X10*3/uL (0.00-0.03); Imm Gran Pct Auto 0.4 % (0.0-0.4); Lymphocytes Percent Auto 23.6 % (20-40); Mean Corpuscular HGB Conc 33.1 g/dl (31.0-36.0); Mean Corpuscular Hemoglobin 31.8 pg (27.0-33.0); Mean Corpuscular Volume 96.2 fL (80.0-98.0); Mean Platelet Volume 10.2 fL (9.4-12.4); Monocytes Absolute Auto 0.7 X10*3/uL (0.1-1.2); Monocytes Percent Auto 8.3 % (2-11); Neutrophils Absolute Auto 5.5 x10*3/uL (2.0-8.3); Neutrophils Percent Auto 64.7 % (45-73); Platelet Count 431 X10*3/uL (160-400); Red Blood Count 3.14 X10*6/uL (4.60-5.80); Red Cell Distribution Width 15.6 % (11.0-16.0); White Blood Count 8.5 X10*3/uL (4.8-10.8)
[2021-12-16 04:55] LABS: Anion Gap 15 (12-20); Blood Urea Nitrogen 48 mg/dL (9-16); Calcium 9.5 mg/dL (8.4-10.2); Carbon Dioxide 27 mmol/L (22-29); Chloride 102 mmol/L (96-108); Creatinine Clr Calc Pharmacy 24.7; Estimated Glomerular Filt Rate 17; Glucose Random 93 mg/dL (60-115); Potassium 4.2 mmol/L (3.3-5.1); Sodium 140 mmol/L (135-145)
[2021-12-16] MEDS: Lactated Ringers 1,000 ML 100 ML IVCONT ×2 (06:37→16:05)
[2021-12-16 07:16] LABS: Glucose, Whole Blood 79 mg/dL (60-115)
[2021-12-16] MEDS: Insulin Glargine,Hum.rec.anlog 100 UNIT/ML 10 ML VIAL 47 UNIT SUBCUT (08:12)
[2021-12-16] MEDS: Calcium + Vitamin D 250 MG TABLET 500 MG PO ×2 (08:14→22:04)
[2021-12-16] MEDS: Gabapentin 300 MG CAPSULE PO (08:15)
[2021-12-16] MEDS: Heparin Sodium,Porcine 5,000 UNIT/ML VIAL 5000 UNIT SUBCUT ×2 (08:15→22:35)
[2021-12-16] MEDS: carvediloL 12.5 MG TABLET PO (08:15)
[2021-12-16] MEDS: Omeprazole 20 MG CAPSULE.DR PO (08:15)
[2021-12-16] MEDS: Sertraline HCL 25 MG TABLET PO (08:15)
[2021-12-16] MEDS: Clopidogrel Bisulfate 75 MG TABLET PO (08:15)
[2021-12-16] MEDS: polyethylene glycoL 3350 17 GM POWD.PACK PO (08:16)
[2021-12-16] MEDS: Docusate Sodium 100 MG CAPSULE PO ×2 (08:16→22:04)
[2021-12-16] MEDS: Sertraline HCL 100 MG TABLET PO (08:17)
[2021-12-16] MEDS: ondansetron HCL 4 MG/2 ML VIAL IVPUSH ×3 (08:41→22:33)
--- NOTE | 2021-12-16 08:44 | MHC.CM.PN ---
CM attempted to meet with Patient at bedside but he was actively vomiting; CM spoke with Patient's /HCP/Dana @ [phone]. Patient lives in a duplex with his and 21 year old Son and he uses a cane at times (When he feels week after Chemo @ [facility] – [place], [place]). Home/no additional services is the goal and CM has initiated and will follow for dc planning. Patient has received [employer]Sp[employer]/Senexx vax X2 and his PCP is Dr. Guido Burch.
[2021-12-16 08:49] LABS: COVID-19 Test Negative (Negative)
--- NOTE | 2021-12-16 09:25 | PC.NURSE ---
Patient to overflow unit, resting comfortably in bed, no vomiting at this time, resting in bed with eyes closed
[2021-12-16 12:14] LABS: Glucose, Whole Blood 64 mg/dL (60-115)
[2021-12-16 12:14] LABS: Glucose, Whole Blood 97 mg/dL (60-115)
[2021-12-16] MEDS: amLODIPine Besylate 5 MG TABLET PO (12:26)
[2021-12-16] MEDS: Fenofibrate 160 MG TABLET PO (12:27)
[2021-12-16] MEDS: Acetaminophen 325 MG TABLET 650 MG PO (13:43)
--- NOTE | 2021-12-16 13:57 | HO.PM.IMPN ---
Subjective Subjective Date of Service: 12/16/21 Interval History: the patient was seen and evaluated this morning Laying in bed, feels tired and complaining of pain all over his body Denies any fever, chills or shortness of breath No reported other overnight events. Systemic review: No fever, chills or weakness No chest pain, palpitation No shortness of breath or coughing No abdominal pain, nausea or vomiting reports making any urine No any rash or wounds Physical Exam Vital Signs: Vital Signs: Last Vital Signs Temp 97.5 F 12/16/21 13:05 Pulse 71 12/16/21 13:05 Resp 10 L 12/16/21 13:05 BP 145/83 H 12/16/21 13:05 Pulse Ox 98 12/16/21 13:05 O2 Del Method 12/16/21 13:05 BMI result Body Mass Index 28.1 Const: Other: Constitutional : Alert, interactive, not in distress Neck : Normal inspection, Supple Cardiovascular : RRR, no JVP, no lower extremity edema Respiratory : fair bilateral air entry, no crackles, wheezes or rhonchi Gastrointestinal: soft, lax, Normal bowel sounds, Non tender Skin : Warm, Dry Neurological : Alert & oriented x3, No focal deficit , CN 2-12 within normal Objective Data Active Medications Acetaminophen (Acetaminophen 325 Mg Tablet) 650 mg PO Q6H PRN PRN Reason: Pain, Mild (Pain Scale 1-3) Last Admin: 12/16/21 13:43 Dose: 650 mg Documented By: MELISSA Albuterol Sulfate (Albuterol Sulfate 90 Mcg 8 Gm Inhaler) 2 puff INHALE Q4H PRN PRN Reason: Cough Amitriptyline HCl (Amitriptyline Hcl 25 Mg Tablet) 25 mg PO BEDTIME MAGUI Aspirin (Aspirin 325 Mg Tablet) 325 mg PO DAILY [facility] Last Admin: 12/16/21 13:43 Dose: Not Given Documented By: MELISSA Non-Admin Reason: See Note Atorvastatin Calcium (Atorvastatin Calcium 80 Mg Tablet) 80 mg PO BEDTIME MAGUI Azelastine HCl (Azelastine Hcl Nasal 137 Mcg/[place] 30 Ml) 2 spray NOSTRIL-B BID [facility] Last Admin: 12/16/21 13:43 Dose: Not Given Documented By: MELISSA Non-Admin Reason: See Note Calcium Carbonate/Cholecalciferol (Calcium + Vitamin D 250 Mg Tablet) 500 mg PO TID [facility] Last Admin: 12/16/21 08:14 Dose: 500 mg Documented By: ANDRE Carvedilol (Carvedilol 12.5 Mg Tablet) 12.5 mg PO DAILY [facility]; Protocol Last Admin: 12/16/21 08:15 Dose: 12.5 mg Documented By: ANDRE Clopidogrel Bisulfate (Clopidogrel Bisulfate 75 Mg Tablet) 75 mg PO DAILY [facility] Last Admin: 12/16/21 08:15 Dose: 75 mg Documented By: ANDRE Docusate Sodium (Docusate Sodium 100 Mg Capsule) 100 mg PO DAILY PRN PRN Reason: Constipation Docusate Sodium (Docusate Sodium 100 Mg Capsule) 100 mg PO BID [facility] Last Admin: 12/16/21 08:16 Dose: 100 mg Documented By: ANDRE Fenofibrate (Fenofibrate 160 Mg Tablet) 160 mg PO DAILY [facility] Last Admin: 12/16/21 12:27 Dose: 160 mg Documented By: TSAVIAlfonso Fluticasone/Vilanterol (Fluticasone/Vilanterol 100/25 Blst.W.Dev) 1 puff INHALE RDAILY [facility] Last Admin: 12/16/21 08:25 Dose: Not Given Documented By: LALI Non-Admin Reason: Med Not Available Gabapentin (Gabapentin 300 Mg Capsule) 600 mg PO BEDTIME [facility] Gabapentin (Gabapentin 300 Mg Capsule) 300 mg PO DAILY [facility] Last Admin: 12/16/21 08:15 Dose: 300 mg Documented By: ANDRE Heparin Sodium (Porcine) (Heparin Sodium,Porcine 5,000 Unit/Ml Vial) 5,000 unit SUBCUT Q12H [facility] Last Admin: 12/16/21 08:15 Dose: 5,000 unit Documented By: ANDRE Hydromorphone HCl (Hydromorphone Hcl 0.5 Mg/0.5 Ml Syringe) 0.5 mg SUBCUT Q4H PRN; Protocol PRN Reason: Pain, Severe (Pain Scale 7-10) Last Admin: 12/16/21 13:42 Dose: 0.5 mg Documented By: MELISSA Lactated Ringer's (Lr) 1,000 mls @ 100 mls/hr IVCONT .Q10H [facility] Last Admin: 12/16/21 06:37 Dose: 100 mls/hr Documented By: ALLEGRA Insulin Glargine (Insulin Glargine,Hum.Rec.Anlog 100 Unit/Ml 10 Ml Vial) 47 unit SUBCUT DAILY [facility] Last Admin: 12/16/21 08:12 Dose: 47 unit Documented By: ANDRE Insulin Human Lispro (Insulin Lispro 100 Unit/Ml 3 Ml Vial) 0 unit SUBCUT QIDACHS [facility]; Protocol Last Admin: 12/16/21 13:43 Dose: Not Given Documented By: MELISSA Non-Admin Reason: Nausea Loperamide HCl (Loperamide Hcl 2 Mg Capsule) 2 mg PO Q4H PRN PRN Reason: Diarrhea Non-Formulary Medication (Lenalidomide [Revlimid]) 15 mg PO DAILY [facility] Omeprazole (Omeprazole 20 Mg Capsule.Dr) 20 mg PO DAILY@0630 [facility] Last Admin: 12/16/21 08:15 Dose: 20 mg Documented By: ANDRE Ondansetron HCl (Ondansetron Hcl 4 Mg/2 Ml Vial) 4 mg IVPUSH Q8H PRN PRN Reason: Nausea and Vomiting Last Admin: 12/16/21 13:41 Dose: 4 mg Documented By: MELISSA Polyethylene Glycol (Polyethylene Glycol 3350 17 Gm Powd.Pack) 17 gm PO DAILY [facility] Last Admin: 12/16/21 08:16 Dose: 17 gm Documented By: ANDRE Sertraline HCl (Sertraline Hcl 25 Mg Tablet) 25 mg PO DAILY [facility] Last Admin: 12/16/21 08:15 Dose: 25 mg Documented By: ANDRE Sertraline HCl (Sertraline Hcl 100 Mg Tablet) 100 mg PO DAILY [facility] Last Admin: 12/16/21 08:17 Dose: 100 mg Documented By: ANDRE Tizanidine HCl (Tizanidine Hcl 4 Mg Tablet) 4 mg PO BEDTIME PRN PRN Reason: muscle spasm Torsemide (Torsemide 20 Mg Tablet) 60 mg PO BID [facility]; Protocol Trimethoprim/Sulfamethoxazole (Sulfamethox/Trimeth 800/160 Tablet) 1 tab PO DAILY [facility] Valacyclovir HCl (Valacyclovir Hcl 500 Mg Tablet) 500 mg PO DAILY [facility] Labs CBC & Chem 7: 12/16/21 04:16 12/16/21 04:16 Labs: Laboratory Results - last 24 hr 12/15/21 12/16/21 12/16/21 19:40 04:16 04:16 MCV 96.2 MCH 31.8 MCHC 33.1 RDW 15.6 Plt Count 431 H MPV 10.2 Immature Gran % (Auto) 0.4 Neut % (Auto) 64.7 Lymph % (Auto) 23.6 [place] % (Auto) 8.3 Eos % (Auto) 2.3 Baso % (Auto) 0.7 Lymph # (Auto) 2.0 [place] # (Auto) 0.7 Eos # (Auto) 0.2 Baso # (Auto) 0.1 Abs Immat Gran (auto) 0.03 Absolute Neuts (auto) 5.5 Absolute Nucleated RBC 0.000 Nucleated RBC % (auto) 0.0 Anion Gap 15 Estim Creat Clear Calc 24.7 Estimated GFR 17 POC Glucose Random Glucose 93 D Calcium 9.5 Urine Color YELLOW Urine Appearance CLEAR Urine pH 6.0 Ur Specific [place] 1.010 Urine Protein NEG Urine Glucose (UA) NEG Urine Ketones NEG Urine Blood NEG Urine Nitrite NEG Ur Leukocyte Esterase NEG COVID-19 ([facility]) COVID-[facility] Com 12/16/21 12/16/21 12/16/21 07:12 08:20 09:12 MCV MCH MCHC RDW Plt Count MPV Immature Gran % (Auto) Neut % (Auto) Lymph % (Auto) [place] % (Auto) Eos % (Auto) Baso % (Auto) Lymph # (Auto) [place] # (Auto) Eos # (Auto) Baso # (Auto) Abs Immat Gran (auto) Absolute Neuts (auto) Absolute Nucleated RBC Nucleated RBC % (auto) Anion Gap Estim Creat Clear Calc Estimated GFR POC Glucose 79 97 Random Glucose Calcium Urine Color Urine Appearance Urine pH Ur Specific [place] Urine Protein Urine Glucose (UA) Urine Ketones Urine Blood Urine Nitrite Ur Leukocyte Esterase COVID-19 ([facility]) Negative COVID-[facility] Com See Note 12/16/21 12:09 MCV MCH MCHC RDW Plt Count MPV Immature Gran % (Auto) Neut % (Auto) Lymph % (Auto) [place] % (Auto) Eos % (Auto) Baso % (Auto) Lymph # (Auto) [place] # (Auto) Eos # (Auto) Baso # (Auto) Abs Immat Gran (auto) Absolute Neuts (auto) Absolute Nucleated RBC Nucleated RBC % (auto) Anion Gap Estim Creat Clear Calc Estimated GFR POC Glucose 64 Random Glucose Calcium Urine Color Urine Appearance Urine pH Ur Specific [place] Urine Protein Urine Glucose (UA) Urine Ketones Urine Blood Urine Nitrite Ur Leukocyte Esterase COVID-19 ([facility]) COVID-19 Clin Com Assessment and Plan (1) Acute renal failure superimposed on stage 3 chronic kidney disease: Status: Acute (2) Multiple myeloma: Status: Acute Plan This is a 46-year-old male with past medical history of multiple myeloma on chemotherapy, CKD among others who presents to the hospital with abnormal labs found to have MAURI and CKD # MAURI on CKD Stage III likely secondary to progressing multiple myeloma verses prerenal secondary to dehydration a mildly improved while on IV fluids continue IV fluid hold of her toxic medications follow BMP Nephrology Consult pending #Multiple myeloma continue outpatient follow-up with Oncology hematology input appreciated # Chronic UTI no evidence of infection hold Bactrim and Valtrex for Mauri I # Cardiomyopathy EF 30-35% status post AICD no acute exacerbation noted, continue all home medications outpatient follow-up with Cardiology # History of CVA/coronary artery disease continue home meds # Depression continue sertraline, and amitriptyline DVT prophylaxis: Heparin subQ patient will need overnight hospital stay to continue evaluation and treatment of acute kidney injury pending final blood work and repeat kidney function To prevent possible decompensation in to renal failure requiring dialysis Quality Stroke Does the patient have a stroke diagnosis?: No VTE Prior VTE?: No VTE Risk Level:: Medical - moderate - high VTE Device Contraindication: Treatment Not Indicated VTE Drug Contraindication: N/A - Med Ordered
--- NOTE | 2021-12-16 14:56 | CONS_ITS ---
DATE OF SERVICE: 12/16/2021 REASON FOR CONSULTATION: I was called to see this patient to assist in management of acute kidney injury. HISTORY OF PRESENT ILLNESS: To summarize, Pérez is well known to us. He follows with my associate, Dr. Josafat Blanco for CKD. He has multiple myeloma, currently being treated. He has chronic kidney disease with a baseline creatinine of 1.4 mg/dL. He has had 3 episodes of acute kidney injury. He comes to the hospital because of abnormal labs. He was found to have creatinine of 4.5 with mild hyperkalemia. He was on torsemide 60 mg a day along with Bactrim and other medications. Since admission, this medications are on hold and is getting IV fluids with minimal improvement. His serum creatinine is nonoliguric. ONGOING MEDICAL PROBLEMS: Include history of multiple myeloma, currently on chemotherapy; coronary artery disease; CKD 3; history of CVA; diabetes mellitus; hypertension; ischemic cardiomyopathy. FAMILY HISTORY: Significant for diabetes mellitus. SURGICAL HISTORY: Cardiac cath and CABG in 2019. SOCIAL HISTORY: He has been using marijuana, but no history of any alcohol abuse. ALLERGIES: HE IS ALLERGIC TO DEMEROL. HOME MEDICATIONS: Included albuterol, amitriptyline, , Colace, gabapentin, insulin, sertraline 25 mg, fenofibrate, insulin, Zofran, torsemide 60 mg b.i.d., carvedilol, and aspirin. REVIEW OF SYSTEMS: Positive for generalized weakness. No headache, nausea, or vomiting. No abdominal pain or constipation. no fever. No rash. All other systems were reviewed. PHYSICAL EXAMINATION: GENERAL: The patient is a middle-aged man who appears comfortable, not in distress, but appears weak. NECK: Supple. No JVD. Mucosa is dry. LUNGS: Air entry equal. No rales. HEART: S1, S2 heard. No gallop or rub. ABDOMEN: Obese, soft, nontender. Bowel sounds are heard. NEUROLOGIC: Alert and awake. EXTREMITIES: No edema. No rash. No clubbing. VITAL SIGNS: Blood pressure was 140/80, pulse 72. LABORATORY DATA: Sodium was 130 on admission with a potassium 4.2. Today sodium was 140, potassium 4.2, BUN 48, creatinine 2.77, hemoglobin 10.0, platelets 431. IMPRESSION: A 46-year-old man with multiple myeloma and chronic kidney disease, stage 3, comes in with acute kidney injury, hyponatremia and hyperkalemia. The acute kidney injury is most likely due to volume depletion from high dose of diuretics. However, given the history of underlying multiple myeloma other possibilities including myeloma kidney, obstructive uropathy should be considered. Luckily, the patient's creatinine is improving over the last 12 hours and I suspect this is all due to hypoperfusion. RECOMMENDATION: Is to hold the torsemide. Hold Bactrim for the time being. IV hydration with normal saline. Keep intake more than output. Follow urine output closely. Obtain renal ultrasonogram to assess echogenicity and/or obstruction. Check urine protein creatinine ratio. If the serum creatinine does not improve, I will arrange for a kidney biopsy, who can proceed with further investigations. At the present time, there is no absolute indication for dialysis. We will follow him closely with the team. MD YESENIA Rolon/MODL / [id number]
[2021-12-16] MEDS: diphenhydrAMINE HCL 50 MG/ML VIAL 25 MG IVPUSH ×2 (16:02→22:07)
[2021-12-16 17:27] LABS: Glucose, Whole Blood 99 mg/dL (60-115)
[2021-12-16 22:01] LABS: Glucose, Whole Blood 118 mg/dL (60-115)
[2021-12-16] MEDS: Amitriptyline HCl 25 MG TABLET PO (22:03)
[2021-12-16] MEDS: Atorvastatin Calcium 80 MG TABLET PO (22:03)
[2021-12-16] MEDS: Azelastine HCl Nasal 137 MCG/Spray 30 ML 2 SPRAY NOSTRIL-B (22:07)
[2021-12-16] MEDS: Gabapentin 300 MG CAPSULE 600 MG PO (22:08)
[2021-12-16] MEDS: HYDROmorphone HCl 0.5 MG/0.5 ML SYRINGE IV (23:02)
[2021-12-16 23:26] LABS: Creatinine Urine 89.22 mg/dL
[2021-12-17] VITALS (10 sets, daily range): BP systolic 110–146; BP diastolic 62–83; PULSE 69–87; RESP 12–16; TEMP 36.4–37.7; O2SAT 94–98
--- NOTE | 2021-12-17 00:28 | PC.NURSE ---
pt vomiting bile/dry heaving after PRN benadryl admin and H.S medications. pt medicated with PRN zofran, later medicated with PRN dilaudid for c/o lower back pain. pt resting comfortably at this time, VSS
[2021-12-17] MEDS: Lactated Ringers 1,000 ML 100 ML IVCONT ×2 (02:40→13:00)
[2021-12-17] MEDS: HYDROmorphone HCl 0.5 MG/0.5 ML SYRINGE IV ×4 (04:25→21:34)
[2021-12-17] MEDS: diphenhydrAMINE HCL 50 MG/ML VIAL 25 MG IVPUSH ×3 (04:25→21:33)
[2021-12-17 07:16] LABS: Glucose, Whole Blood 96 mg/dL (60-115)
[2021-12-17] MEDS: Torsemide 20 MG TABLET 60 MG PO ×2 (07:43→21:30)
[2021-12-17] MEDS: Sertraline HCL 100 MG TABLET PO (07:44)
[2021-12-17] MEDS: Fenofibrate 160 MG TABLET PO (07:44)
[2021-12-17] MEDS: Calcium + Vitamin D 250 MG TABLET 500 MG PO ×2 (07:44→21:31)
[2021-12-17] MEDS: valACYclovir HCL 500 MG TABLET PO (07:44)
[2021-12-17] MEDS: carvediloL 12.5 MG TABLET PO (07:45)
[2021-12-17] MEDS: Sulfamethox/Trimeth 800/160 TABLET 1 TAB PO (07:45)
[2021-12-17] MEDS: Aspirin 325 MG TABLET PO (07:45)
[2021-12-17] MEDS: Clopidogrel Bisulfate 75 MG TABLET PO (07:45)
[2021-12-17] MEDS: polyethylene glycoL 3350 17 GM POWD.PACK PO (07:45)
[2021-12-17] MEDS: Sertraline HCL 25 MG TABLET PO (07:45)
[2021-12-17] MEDS: Docusate Sodium 100 MG CAPSULE PO ×2 (07:46→21:30)
[2021-12-17] MEDS: Heparin Sodium,Porcine 5,000 UNIT/ML VIAL 5000 UNIT SUBCUT ×2 (07:46→21:32)
[2021-12-17] MEDS: Insulin Glargine,Hum.rec.anlog 100 UNIT/ML 10 ML VIAL 47 UNIT SUBCUT (07:47)
[2021-12-17] MEDS: Gabapentin 300 MG CAPSULE PO (07:47)
[2021-12-17 08:05] LABS: Alanine Aminotransferase 17 U/L (0-40); Albumin Level 4.3 g/dL (3.5-5.0); Alkaline Phosphatase 91 U/L (39-117); Anion Gap 13 (12-20); Aspartate Amino Transferase 27 U/L (5-37); Bilirubin Direct < 0.2 mg/dL (0.0-0.5); Bilirubin Total 0.2 mg/dL (0.0-1.0); Blood Urea Nitrogen 26 mg/dL (9-16); Calcium 9.9 mg/dL (8.4-10.2); Carbon Dioxide 28 mmol/L (22-29); Chloride 104 mmol/L (96-108); Creatinine Clr Calc Pharmacy 39.5; Estimated Glomerular Filt Rate 30; Glucose Random 102 mg/dL (60-115); Potassium 4.6 mmol/L (3.3-5.1); Sodium 140 mmol/L (135-145); Total Protein 7.1 g/dL (6.5-8.0)
[2021-12-17 08:45] LABS: EOS Counted 2 CELLS; EOS QC POS YES; EOS Stain Quality OK YES; WBC, Counted 50 CELLS
[2021-12-17] MEDS: Azelastine HCl Nasal 137 MCG/Spray 30 ML 2 SPRAY NOSTRIL-B ×2 (09:04→23:04)
[2021-12-17] MEDS: Acetaminophen 325 MG TABLET 650 MG PO (09:04)
--- NOTE | 2021-12-17 11:17 | P.PNIM_ITS ---
Subjective Subjective Date of Service: 12/17/21 Interval History: the patient was seen and evaluated this morning Laying in bed, feels Improvement overnight but still reports weakness Creatinine improved No reported other overnight events. Systemic review: No fever, chills or weakness No chest pain, palpitation No shortness of breath or coughing No abdominal pain, nausea or vomiting reports making any urine No any rash or wounds Physical Exam Vital Signs: Vital Signs: Last Vital Signs Temp 98.0 F 12/17/21 11:12 Pulse 70 12/17/21 11:12 Resp 12 12/17/21 11:12 BP 110/64 12/17/21 11:12 Pulse Ox 95 12/17/21 11:12 O2 Del Method 12/17/21 11:12 BMI result Body Mass Index 28.1 Const: Other: Constitutional : Alert, interactive, not in distress Neck : Normal inspection, Supple Cardiovascular : RRR, no JVP, no lower extremity edema Respiratory : fair bilateral air entry, no crackles, wheezes or rhonchi Gastrointestinal: soft, lax, Normal bowel sounds, Non tender Skin : Warm, Dry Neurological : Alert & oriented x3, No focal deficit , CN 2-12 within normal Objective Data Active Medications Acetaminophen (Acetaminophen 325 Mg Tablet) 650 mg PO Q6H PRN PRN Reason: Pain, Mild (Pain Scale 1-3) Last Admin: 12/17/21 09:04 Dose: 650 mg Documented By: BEN Albuterol Sulfate (Albuterol Sulfate 90 Mcg 8 Gm Inhaler) 2 puff INHALE Q4H PRN PRN Reason: Cough Amitriptyline HCl (Amitriptyline Hcl 25 Mg Tablet) 25 mg PO BEDTIME [facility] Last Admin: 12/16/21 22:03 Dose: 25 mg Documented By: FLAKO Aspirin (Aspirin 325 Mg Tablet) 325 mg PO DAILY [facility] Last Admin: 12/17/21 07:45 Dose: 325 mg Documented By: BEN Atorvastatin Calcium (Atorvastatin Calcium 80 Mg Tablet) 80 mg PO BEDTIME [facility] Last Admin: 12/16/21 22:03 Dose: 80 mg Documented By: FLAKO Azelastine HCl (Azelastine Hcl Nasal 137 Mcg/[place] 30 Ml) 2 spray NOSTRIL-B BID [facility] Last Admin: 12/17/21 09:04 Dose: 2 spray Documented By: BEN Calcium Carbonate/Cholecalciferol (Calcium + Vitamin D 250 Mg Tablet) 500 mg PO TID [facility] Last Admin: 12/17/21 07:44 Dose: 500 mg Documented By: BEN Carvedilol (Carvedilol 12.5 Mg Tablet) 12.5 mg PO DAILY [facility]; Protocol Last Admin: 12/17/21 07:45 Dose: 12.5 mg Documented By: BEN Clopidogrel Bisulfate (Clopidogrel Bisulfate 75 Mg Tablet) 75 mg PO DAILY [facility] Last Admin: 12/17/21 07:45 Dose: 75 mg Documented By: BEN Diphenhydramine HCl (Diphenhydramine Hcl 50 Mg/Ml Vial) 25 mg IVPUSH Q6H PRN PRN Reason: Nausea Last Admin: 12/17/21 04:25 Dose: 25 mg Documented By: FLAKO Docusate Sodium (Docusate Sodium 100 Mg Capsule) 100 mg PO DAILY PRN PRN Reason: Constipation Docusate Sodium (Docusate Sodium 100 Mg Capsule) 100 mg PO BID [facility] Last Admin: 12/17/21 07:46 Dose: 100 mg Documented By: BEN Fenofibrate (Fenofibrate 160 Mg Tablet) 160 mg PO DAILY [facility] Last Admin: 12/17/21 07:44 Dose: 160 mg Documented By: BEN Fluticasone/Vilanterol (Fluticasone/Vilanterol 100/25 Blst.W.Dev) 1 puff INHALE RDAILY [facility] Last Admin: 12/17/21 07:29 Dose: Not Given Documented By: LALI Non-Admin Reason: Med Not Available Gabapentin (Gabapentin 300 Mg Capsule) 600 mg PO BEDTIME [facility] Last Admin: 12/16/21 22:08 Dose: 600 mg Documented By: FLAKO Gabapentin (Gabapentin 300 Mg Capsule) 300 mg PO DAILY [facility] Last Admin: 12/17/21 07:47 Dose: 300 mg Documented By: BEN Heparin Sodium (Porcine) (Heparin Sodium,Porcine 5,000 Unit/Ml Vial) 5,000 unit SUBCUT Q12H [facility] Last Admin: 12/17/21 07:46 Dose: 5,000 unit Documented By: BEN Hydromorphone HCl (Hydromorphone Hcl 0.5 Mg/0.5 Ml Syringe) 0.5 mg IV Q4H PRN; Protocol PRN Reason: Pain, Severe (Pain Scale 7-10) Last Admin: 12/17/21 09:04 Dose: 0.5 mg Documented By: BEN Lactated Ringer's (Lr) 1,000 mls @ 100 mls/hr IVCONT .Q10H [facility] Last Admin: 12/17/21 02:40 Dose: 100 mls/hr Documented By: FLAKO Insulin Glargine (Insulin Glargine,Hum.Rec.Anlog 100 Unit/Ml 10 Ml Vial) 47 unit SUBCUT DAILY [facility] Last Admin: 12/17/21 07:47 Dose: 47 unit Documented By: BEN Insulin Human Lispro (Insulin Lispro 100 Unit/Ml 3 Ml Vial) 0 unit SUBCUT QIDACHS [facility]; Protocol Last Admin: 12/17/21 07:22 Dose: Not Given Documented By: BEN Non-Admin Reason: No Insulin Coverage Loperamide HCl (Loperamide Hcl 2 Mg Capsule) 2 mg PO Q4H PRN PRN Reason: Diarrhea Non-Formulary Medication (Lenalidomide [Revlimid]) 15 mg PO DAILY [facility] Omeprazole (Omeprazole 20 Mg Capsule.Dr) 20 mg PO DAILY@0630 [facility] Last Admin: 12/17/21 05:41 Dose: Not Given Documented By: FLAKO Non-Admin Reason: Patient Refused Ondansetron HCl (Ondansetron Hcl 4 Mg/2 Ml Vial) 4 mg IVPUSH Q8H PRN PRN Reason: Nausea and Vomiting Last Admin: 12/16/21 22:33 Dose: 4 mg Documented By: FLAKO Polyethylene Glycol (Polyethylene Glycol 3350 17 Gm Powd.Pack) 17 gm PO DAILY [facility] Last Admin: 12/17/21 07:45 Dose: 17 gm Documented By: BEN Sertraline HCl (Sertraline Hcl 25 Mg Tablet) 25 mg PO DAILY [facility] Last Admin: 12/17/21 07:45 Dose: 25 mg Documented By: BEN Sertraline HCl (Sertraline Hcl 100 Mg Tablet) 100 mg PO DAILY [facility] Last Admin: 06/16/22 07:44 Dose: 100 mg Documented By: BEN Tizanidine HCl (Tizanidine Hcl 4 Mg Tablet) 4 mg PO BEDTIME PRN PRN Reason: muscle spasm Torsemide (Torsemide 20 Mg Tablet) 60 mg PO BID [facility]; Protocol Trimethoprim/Sulfamethoxazole (Sulfamethox/Trimeth 800/160 Tablet) 1 tab PO DAILY [facility] Valacyclovir HCl (Valacyclovir Hcl 500 Mg Tablet) 500 mg PO DAILY [facility] Last Admin: 12/17/21 07:44 Dose: 500 mg Documented By: BEN Labs CBC & Chem 7: 12/16/21 04:16 12/17/21 07:34 Labs: Laboratory Results - last 24 hr 12/16/21 12/16/21 12/16/21 09:12 12:09 17:23 Anion Gap Estim Creat Clear Calc Estimated GFR POC Glucose 97 64 99 Random Glucose Calcium Total Bilirubin Direct Bilirubin AST ALT Alkaline Phosphatase Total Protein Albumin Urine Eosinophils % Ur Random Sodium Urine Creatinine 12/16/21 12/16/21 12/16/21 21:58 22:31 22:31 Anion Gap Estim Creat Clear Calc Estimated GFR POC Glucose 118 H Random Glucose Calcium Total Bilirubin Direct Bilirubin AST ALT Alkaline Phosphatase Total Protein Albumin Urine Eosinophils % 4.0 Ur Random Sodium 79.0 Urine Creatinine 89.22 12/17/21 12/17/21 12/17/21 07:12 07:34 07:34 Anion Gap 13 Estim Creat Clear Calc 39.5 Estimated GFR 30 POC Glucose 96 Random Glucose 102 Calcium 9.9 Total Bilirubin 0.2 Cancelled Direct Bilirubin < 0.2 Cancelled AST 27 Cancelled ALT 17 Cancelled Alkaline Phosphatase 91 Cancelled Total Protein 7.1 Cancelled Albumin 4.3 Cancelled Urine Eosinophils % Ur Random Sodium Urine Creatinine Assessment and Plan (1) Acute renal failure superimposed on stage 3 chronic kidney disease: Status: Acute (2) Multiple myeloma: Status: Acute Plan This is a 46-year-old male with past medical history of multiple myeloma on chemotherapy, CKD among others who presents to the hospital with abnormal labs found to have MAURI and CKD # MAURI on CKD Stage III seems more prerenal secondary to dehydration improving, creatinine of 2.4 continue IV fluid hold nephrotoxic medications follow BMP Nephrology Consult appreciated #Multiple myeloma continue outpatient follow-up with Oncology hematology input appreciated # Chronic UTI no evidence of infection hold Bactrim for Mauri I # Cardiomyopathy EF 30-35% status post AICD no acute exacerbation noted, continue all home medications outpatient follow-up with Cardiology hold torsemide # History of CVA/coronary artery disease continue home meds # Depression continue sertraline, and amitriptyline DVT prophylaxis: Heparin subQ patient will need overnight hospital stay to continue evaluation and treatment of acute kidney injury pending final blood work and repeat kidney function To prevent possible decompensation in to renal failure requiring dialysis Quality Stroke Does the patient have a stroke diagnosis?: No VTE Prior VTE?: No VTE Risk Level:: Medical - moderate - high VTE Device Contraindication: Treatment Not Indicated VTE Drug Contraindication: N/A - Med Ordered
--- NOTE | 2021-12-17 11:35 | PM.PNNEP ---
Subjective Subjective Date of Service: 12/17/21 Interval history: the patient was seen and evaluated this morning Laying in bed, feels Improvement overnight but still reports weakness Creatinine improved No reported other overnight events. Systemic review: No fever, chills or weakness No chest pain, palpitation No shortness of breath or coughing No abdominal pain, nausea or vomiting reports making any urine No any rash or wounds Physical Exam Vital Signs: Vital Signs: Last Vital Signs Temp 98.0 F 12/17/21 11:12 Pulse 70 12/17/21 11:12 Resp 12 12/17/21 11:12 BP 110/64 12/17/21 11:12 Pulse Ox 95 12/17/21 11:12 O2 Del Method 12/17/21 11:12 BMI result Body Mass Index 28.1 Const: General: cooperative and no acute distress Eyes: General: appearance normal, both eyes and all related structures Resp: Effort & Inspection: normal respiratory effort Auscultation: clear to auscultation bilaterally Cardio: Rate: regular rate Rhythm: regular rhythm GI: Palpation (GI): Soft to palpation Auscultation: normal bowel sounds : Other: Patient has CVA tenderness Bilaterally Skin: General skin exam: no rashes or lesions noted Neuro: Cognition (Neuro): normal cognition Extrem: General: Yes normal to inspection and Yes no pedal edema Objective Data Labs CBC & Chem 7: 12/16/21 04:16 12/17/21 07:34 Labs: Laboratory Results - last 24 hr 12/16/21 12/16/21 12/16/21 09:12 12:09 17:23 Sodium Potassium Chloride Carbon Dioxide Anion Gap BUN Creatinine Estim Creat Clear Calc Estimated GFR POC Glucose 97 64 99 Random Glucose Calcium Total Bilirubin Direct Bilirubin AST ALT Alkaline Phosphatase Total Protein Albumin Urine Eosinophils % Ur Random Sodium Urine Creatinine 12/16/21 12/16/21 12/16/21 21:58 22:31 22:31 Sodium Potassium Chloride Carbon Dioxide Anion Gap BUN Creatinine Estim Creat Clear Calc Estimated GFR POC Glucose 118 H Random Glucose Calcium Total Bilirubin Direct Bilirubin AST ALT Alkaline Phosphatase Total Protein Albumin Urine Eosinophils % 4.0 Ur Random Sodium 79.0 Urine Creatinine 89.22 12/17/21 12/17/21 12/17/21 07:12 07:34 07:34 Sodium 140 Potassium 4.6 Chloride 104 Carbon Dioxide 28 Anion Gap 13 BUN 26 H Creatinine 2.36 H Estim Creat Clear Calc 39.5 Estimated GFR 30 POC Glucose 96 Random Glucose 102 Calcium 9.9 Total Bilirubin 0.2 Cancelled Direct Bilirubin < 0.2 Cancelled AST 27 Cancelled ALT 17 Cancelled Alkaline Phosphatase 91 Cancelled Total Protein 7.1 Cancelled Albumin 4.3 Cancelled Urine Eosinophils % Ur Random Sodium Urine Creatinine Procedures Date of Service Date of Service: 12/17/21 Assessment & Plan Assessment and plan (1) Acute renal failure superimposed on stage 3 chronic kidney disease: Status: Acute (2) Multiple myeloma: Status: Acute Plan 46-year-old man with multiple myeloma and chronic kidney disease, stage 3, comes in with acute kidney injury, hyponatremia and hyperkalemia. ? The acute kidney injury is most likely due to volume depletion from high dose of diuretics.? However, given the history of underlying multiple myeloma other possibilities including myeloma kidney, obstructive uropathy should be considered.? the creatinine is improving and I suspect this is all due to hypoperfusion. ? RECOMMENDATION:? Is to hold the torsemide.? Hold Bactrim for the time being.? IV hydration with normal saline.? Keep intake more than output.? Follow urine output closely. At the present time, there is no absolute indication for biopsy or dialysis.? Time Spent With Patient Time: Total time spent is greater than 50% in coordination of care (as documented) at patient's floor/unit and/or counseling patient: Progress Note: Quality Stroke Does the patient have a stroke diagnosis?: No
[2021-12-17 13:07] LABS: Glucose, Whole Blood 138 mg/dL (60-115)
[2021-12-17 17:02] LABS: Glucose, Whole Blood 177 mg/dL (60-115)
--- NOTE | 2021-12-17 17:59 | PC.NURSE ---
Pt alert and oriented x3.Pt transfrred from Ed overflow at 10am to rm [id number]. Pt C/O severe 8-10/10 back pain and nausea. Medicated with PRN dilaudid and benedrylx2 with good effect. Family here at bedside. Pt had shower with help fom his , after which he had some Nausea and vomited x1. Pt did not eat much at supper and therefore refused Insulin at 4pm. NSR on tele with HR in the 60s.
[2021-12-17 20:22] LABS: Glucose, Whole Blood 171 mg/dL (60-115)
[2021-12-17] MEDS: Atorvastatin Calcium 80 MG TABLET PO (21:31)
[2021-12-17] MEDS: Amitriptyline HCl 25 MG TABLET PO (21:31)
[2021-12-17] MEDS: Insulin Lispro 100 UNIT/ML 3 ML VIAL SUBCUT (21:33)
[2021-12-17] MEDS: Gabapentin 300 MG CAPSULE 600 MG PO (21:33)
[2021-12-18] MEDS: HYDROmorphone HCl 0.5 MG/0.5 ML SYRINGE IV ×3 (02:38→13:26)
[2021-12-18 04:00] VITALS: BP 129/83; PULSE 73; RESP 16; TEMP 37.1
[2021-12-18] MEDS: Omeprazole 20 MG CAPSULE.DR PO (06:16)
[2021-12-18 06:57] LABS: Anion Gap 14 (12-20); Blood Urea Nitrogen 25 mg/dL (9-16); Calcium 9.9 mg/dL (8.4-10.2); Carbon Dioxide 31 mmol/L (22-29); Chloride 100 mmol/L (96-108); Creatinine Clr Calc Pharmacy 35.3; Estimated Glomerular Filt Rate 26; Glucose Random 110 mg/dL (60-115); Sodium 141 mmol/L (135-145)
[2021-12-18 07:24] VITALS: BP 155/97; PULSE 84; RESP 20; TEMP 36.4; O2SAT 96
[2021-12-18 07:56] LABS: Glucose, Whole Blood 116 mg/dL (60-115)
[2021-12-18] MEDS: polyethylene glycoL 3350 17 GM POWD.PACK PO (08:04)
[2021-12-18] MEDS: valACYclovir HCL 500 MG TABLET PO (08:05)
[2021-12-18] MEDS: Torsemide 20 MG TABLET 60 MG PO (08:05)
[2021-12-18] MEDS: Sertraline HCL 25 MG TABLET PO (08:05)
[2021-12-18] MEDS: carvediloL 12.5 MG TABLET PO (08:05)
[2021-12-18] MEDS: Gabapentin 300 MG CAPSULE PO (08:06)
[2021-12-18] MEDS: Docusate Sodium 100 MG CAPSULE PO (08:06)
[2021-12-18] MEDS: Fenofibrate 160 MG TABLET PO (08:06)
[2021-12-18] MEDS: Aspirin 325 MG TABLET PO (08:07)
[2021-12-18] MEDS: Sulfamethox/Trimeth 800/160 TABLET 1 TAB PO (08:07)
[2021-12-18] MEDS: Heparin Sodium,Porcine 5,000 UNIT/ML VIAL 5000 UNIT SUBCUT (08:08)
[2021-12-18] MEDS: Calcium + Vitamin D 250 MG TABLET 500 MG PO (08:15)
[2021-12-18] MEDS: Sertraline HCL 100 MG TABLET PO (08:16)
[2021-12-18] MEDS: Clopidogrel Bisulfate 75 MG TABLET PO (08:16)
--- NOTE | 2021-12-18 11:01 | PM.DS ---
DS: Providers Provider Date of Service: 12/18/21 Date of admission: 12/15/21 20:10 Primary care physician: Guido Burch III, MD Consults: 12/16/21 05:49 Consult to Hematology / Oncology Routine Consulting Provider: Fabi Diaz Reason for consultation: MM with MAURI on CKD 12/16/21 07:46 Consult to Nephrology Routine Consulting Provider: Marquez Barnett Reason for consultation: MAURI on CKD in MM patient DS: Diagnosis Discharge Diagnosis (1) Acute renal failure superimposed on stage 3 chronic kidney disease: Status: Acute (2) Multiple myeloma: Status: Acute DS: Summary Hospital Course Hospital Course: Admission note HPI 46-year-old male with past medical history of multiple myeloma on chemotherapy, diabetes, CAD, CMP status post AICD, CKD, CVA among others who presents to the hospital with complaints of abnormal labs.? Patient is Polish-speaking and history is obtained with the help of an skilled nursing facilities professional.? Patient reports that he went to his oncologist today did routine labs and was found to have kidney failure and therefore was sent to the hospital.? Patient is complaining of bilateral flank pain worse on the right, he is complaining of suprapubic pain, but denies any urinary symptoms including no dysuria urgency or frequency.? He reports no fever or chills, no chest pain, no shortness of breath, no abdominal pain, no diarrhea constipation, no lower extremity edema.? No headache or change in vision.? He reports nausea and had vomiting about 3 days ago that has now resolved.? He reports adequate oral intake.? Of note patient was seen in the hospital and discharged on 12/02 after being treated for intractable nausea vomiting induced by chemotherapy.? He was also found to have acute on chronic anemia as well as mild MAURI. On Arrival to the ED hemodynamically stable with no significant abnormal vitals Labs are significant for WBC count of 8.2, hemoglobin of 9.9, hematocrit 29.8, BUN of 52, creatinine of 4.18 with a baseline of around 1.[address] shows no intra-abdominal process, mild constipation. UA negative for any evidence of infection Hospital course The patient was admitted to the hospital for evaluation of abnormal blood work consistent with acute kidney injury on top of CKD stage 3. The patient was treated with IV fluid and holding nephrotoxic medications of torsemide and Bactrim with good response over the course of hospital stay as his creatinine level gradually improved. He was evaluated by aerial sprayer who recommended decreasing the dose of torsemide and Bactrim at the time of discharge. He was seen by his oncologist who recommended to hold chemotherapy until next week to resume med once he is in a better condition. Plan To repeat blood test next week Drink plenty of fluids and eat well Cut down torsemide to 40 mg once a day for the time being Decrease Bactrim to 2 tablets 3 times a week To follow-up with oncology clinic as outpatient as scheduled well to continue chemotherapy Time Spent with Patient Time attestation: Total time spent providing and/or coordinating discharge services: Discharge coordination time: Greater than 30 minutes Quality: Safe Use of Opioids Does Pt have an Active Cancer Diagnosis on the Problem List?: No Quality: Stroke Does the patient have a stroke diagnosis?: No Physical Exam Vital Signs: Vital Signs: Last Vital Signs Temp 97.6 F 12/18/21 07:24 Pulse 84 12/18/21 07:24 Resp 20 12/18/21 07:24 BP 155/97 H 12/18/21 07:24 Pulse Ox 96 12/18/21 07:24 O2 Del Method 12/18/21 07:24 BMI result Body Mass Index 28.1 Const: Other: Constitutional : Alert, interactive, not in distress Neck : Normal inspection, Supple Cardiovascular : RRR, no JVP, no lower extremity edema Respiratory : fair bilateral air entry, no crackles, wheezes or rhonchi Gastrointestinal: soft, lax, Normal bowel sounds, Non tender Skin : Warm, Dry Neurological : Alert & oriented x3, No focal deficit , CN 2-12 within normal DS: Data Data Completed and Pending Completed studies during hospitalization [Text1]: Procedures Transfusion of Nonautologous Red Blood Cells into Peripheral Vein, Percutaneous Approach (11/27/21) Labs on day of discharge: Laboratory Results - last 24 hr 12/17/21 12/17/21 12/17/21 13:01 16:38 20:15 Sodium Potassium Chloride Carbon Dioxide Anion Gap BUN Creatinine Estim Creat Clear Calc Estimated GFR POC Glucose 138 H 177 H 171 H Random Glucose Calcium 12/18/21 12/18/21 06:17 07:52 Sodium 141 Potassium 4.0 Chloride 100 Carbon Dioxide 31 H Anion Gap 14 BUN 25 H Creatinine 2.64 H Estim Creat Clear Calc 35.3 Estimated GFR 26 POC Glucose 116 H Random Glucose 110 Calcium 9.9 Discharge Plan Discharge Patient Disposition: Home, Self-Care Discharge Diagnosis: Acute kidney injury Referrals: Guido Burch III, MD [Primary Care Provider] - 1 Week Discharge Medications: Continued sertraline 100 mg tablet 100 mg PO DAILY Rx Instructions: one 25 mg tab + one 100 mg tab = 125 mg daily dose valacyclovir [Valtrex] 500 mg Tablet 500 mg PO DAILY Qty: 60 6RF calcium carbonate-vitamin D3 [Calcium 500 + D] 500 mg-10 mcg (400 unit) Tablet 1 tab PO TID Qty: 90 4RF fluticasone propion-salmeterol 250-50 mcg/dose Blister With Device 1 inh INHALATION Q12H gabapentin 300 mg Capsule 600 mg PO BEDTIME azelastine 137 mcg (0.1 %) Aerosol,[place] 2 spray INTRANASAL BID insulin lispro [Humalog KwikPen Insulin] 100 unit/mL Insulin Pen 10 - 18 unit SUBCUT TID (DME) pen needle, diabetic [BD Ultra-Fine Short Pen Needle] 31 gauge x 5/16 needle subcut QID fenofibrate nanocrystallized 145 mg tablet 1 tab PO DAILY tizanidine 4 mg tablet 1 tab PO BEDTIME PRN (Reason: muscle spasm) loperamide 2 mg Capsule 2 mg PO Q4H PRN (Reason: Diarrhea) Qty: 30 0RF lenalidomide [Revlimid] 15 mg Capsule 15 mg PO DAILY Qty: 21 4RF Rx Instructions: Take on D1-14 of 21D Velcade Schedule, swallow whole with glass of water; do not open, crush, chew , break, or dissolve aspirin 325 mg tablet 1 tab PO DAILY carvedilol 12.5 mg tablet 12.5 mg PO DAILY clopidogrel 75 mg tablet 75 mg PO DAILY atorvastatin 80 mg tablet 80 mg PO BEDTIME albuterol sulfate 90 mcg/actuation HFA aerosol inhaler 2 puff inhalation Q4H PRN (Reason: Cough) docusate sodium 100 mg capsule 100 mg PO BID Rx Instructions: hold for diarrhea pantoprazole 40 mg tablet,delayed release (DR/EC) 40 mg PO DAILY sertraline 25 mg tablet 25 mg PO DAILY Rx Instructions: one 25 mg tab + one 100 mg tab = 125 mg daily dose amitriptyline 25 mg tablet 25 mg PO BEDTIME gabapentin [Neurontin] 300 mg capsule 300 mg PO DAILY Lantus Solostar U-100 Insulin 100 unit/mL (3 mL) insulin pen 47 unit subcut QAM (DME) FreeStyle [place] 14 Day Sensor Kit See Rx Instructions topical Q2W Qty: 1 Rx Instructions: As directed ondansetron HCl 4 mg tablet 8 mg PO Q8H PRN (Reason: nausea) Changed torsemide 20 mg tablet 40 mg PO DAILY Qty: 30 0RF sulfamethoxazole-trimethoprim [Bactrim DS] 800-160 mg Tablet 1 tab PO QTUTHSA Qty: 60 5RF Discharge Orders: Discharge Order (Routine); Ordered 12/18/21 Ordered By: Abran Wright Diet: advance to usual diet and low salt diet Activity on Discharge: As tolerated Stand Alone Forms: Patient Portal Discharge page Other Ambulatory Orders: Basic Metabolic Panel (Routine) Timeframe: 3 Days Facility: [facility] - Location: Laboratory Ordered By: Abran Wright Care Plan Goals: Read below Health Concerns: Read below Plan of Treatment: Read below Assessment: You were admitted to the hospital for evaluation of acute kidney injury. Believed to be secondary to dehydration after chemotherapy. You were evaluated by kidney specialist as your kidneys function improved over the course of hospital stay with IV fluid usage on cutting down some of your home medications. To repeat blood test next week Drink plenty of fluids and eat well Cut down torsemide to 40 mg once a day for the time being Decrease Bactrim to 2 tablets 3 times a week To follow-up with oncology clinic as outpatient as scheduled well to continue chemotherapy
--- NOTE | 2021-12-18 11:57 | MHC.CM.PN ---
Male 46 DX MAURI Patient is discharged to home today. Chemo therapy will resume. His will provide transportation.
[2021-12-18] MEDS: Fluticasone/Vilanterol 100/25 BLST.W.DEV 1 PUFF INHALE (12:10)
[2021-12-18 12:11] VITALS: PULSE 75; RESP 16; O2SAT 100
--- NOTE | 2021-12-18 12:41 | PM.PNNEP ---
Subjective Subjective Date of Service: 12/18/21 Interval history: the patient was seen and evaluated this morning Laying in bed, feels Improvement overnight but still reports weakness Creatinine improved No reported other overnight events. Systemic review: No fever, chills or weakness No chest pain, palpitation No shortness of breath or coughing No abdominal pain, nausea or vomiting reports making any urine No any rash or wounds Physical Exam Vital Signs: Vital Signs: Last Vital Signs Temp 97.6 F 12/18/21 07:24 Pulse 75 12/18/21 12:11 Resp 16 12/18/21 12:11 BP 155/97 H 12/18/21 07:24 Pulse Ox 96 12/18/21 07:24 O2 Del Method 12/18/21 07:24 BMI result Body Mass Index 28.1 Const: General: cooperative and no acute distress Eyes: General: appearance normal, both eyes and all related structures Resp: Effort & Inspection: normal respiratory effort Auscultation: clear to auscultation bilaterally Cardio: Rate: regular rate Rhythm: regular rhythm GI: Palpation (GI): Soft to palpation Auscultation: normal bowel sounds : Other: Patient has CVA tenderness Bilaterally Skin: General skin exam: no rashes or lesions noted Neuro: Cognition (Neuro): normal cognition Extrem: General: Yes normal to inspection and Yes no pedal edema Objective Data Labs CBC & Chem 7: 12/16/21 04:16 12/18/21 06:17 Labs: Laboratory Results - last 24 hr 12/17/21 12/17/21 12/17/21 13:01 16:38 20:15 Sodium Potassium Chloride Carbon Dioxide Anion Gap BUN Creatinine Estim Creat Clear Calc Estimated GFR POC Glucose 138 H 177 H 171 H Random Glucose Calcium 12/18/21 12/18/21 06:17 07:52 Sodium 141 Potassium 4.0 Chloride 100 Carbon Dioxide 31 H Anion Gap 14 BUN 25 H Creatinine 2.64 H Estim Creat Clear Calc 35.3 Estimated GFR 26 POC Glucose 116 H Random Glucose 110 Calcium 9.9 Procedures Date of Service Date of Service: 12/18/21 Assessment & Plan Assessment and plan (1) Acute renal failure superimposed on stage 3 chronic kidney disease: Status: Acute (2) Multiple myeloma: Status: Acute Plan 46-year-old man with multiple myeloma and chronic kidney disease, stage 3, comes in with acute kidney injury, hyponatremia and hyperkalemia. ? The acute kidney injury is most likely due to volume depletion from high dose of diuretics.? However, given the history of underlying multiple myeloma other possibilities including myeloma kidney, obstructive uropathy should be considered.? the creatinine is improving and I suspect this is all due to hypoperfusion. ? RECOMMENDATION:? OK to DC with Reduced dose of Torsemide Needs OP follow up- shall arrange normal saline.? Keep intake more than output.? Follow urine output closely. At the present time, there is no absolute indication for biopsy or dialysis.? Time Spent With Patient Time: Total time spent is greater than 50% in coordination of care (as documented) at patient's floor/unit and/or counseling patient: Progress Note: Quality Stroke Does the patient have a stroke diagnosis?: No
== END 2021-12-18 14:12 | disposition home or self-care (01) | DRG 469 ==
LOC: HO.ED 19:45 → HO.EDOVER 20:30 → HO.IMC 12-17 08:53
PROVIDERS: Emergency Medicine; Admitting Provider Internal Medicine; Emergency Provider Internal Medicine; PCP Internal Medicine; Visit Provider Student in an Organized Health Care Education/Training Program
DX: N17.9 Acute kidney failure, unspecified (principal); C90.00 Multiple myeloma not having achieved remission; E11.22 Type 2 diabetes mellitus with diabetic chronic kidney disease; D63.1 Anemia in chronic kidney disease; E87.1 Hypo-osmolality and hyponatremia; D63.0 Anemia in neoplastic disease; N18.30 Chronic kidney disease, stage 3 unspecified; I25.5 Ischemic cardiomyopathy; F32.A Depression, unspecified; Z87.440 Personal history of urinary (tract) infections; Z95.810 Presence of automatic (implantable) cardiac defibrillator; E87.5 Hyperkalemia; I25.10 Atherosclerotic heart disease of native coronary artery without angina pectoris; Z95.1 Presence of aortocoronary bypass graft; Z86.73 Personal history of transient ischemic attack (TIA), and cerebral infarction without residual deficits; Z20.822 Contact with and (suspected) exposure to COVID-19; Z88.8 Allergy status to other drugs, medicaments and biological substances; Z79.4 Long term (current) use of insulin; Z79.02 Long term (current) use of antithrombotics/antiplatelets; Z79.82 Long term (current) use of aspirin; Z79.899 Other long term (current) drug therapy
CPT/HCPCS: 36415; 71045; 74176; 80048; 80076; 81003; 82947; 84300; 85025; 87635; 89190; 96360; 99285; J1170; J1200; J2405

== ENCOUNTER → 2021-12-31 09:05 | Outpatient (BNVA) | payer OTHER, SELFPAY | PROVIDERS: PCP Internal Medicine; Visit Provider Urology | DX: R39.89 Other symptoms and signs involving the genitourinary system (principal); N39.0 Urinary tract infection, site not specified | CPT/HCPCS: 52000; 99212 ==

== ENCOUNTER 2022-01-01 14:16 | Observation (INO) | payer OTHER, SELFPAY ==
--- NOTE | ~2022-01-01 | XR_ITS ---
EXAMINATION: XR ABDOMEN KUB CLINICAL INDICATION: Abdominal distention. COMPARISON: CT abdomen/pelvis 12/15/2021. TECHNIQUE: AP view of the abdomen. FINDINGS: Neurostimulator device projecting over the left upper quadrant. Right upper quadrant surgical clips. Partially imaged sternotomy wires. Nonobstructive bowel gas pattern. Mild colonic stool burden. Calcifications of the vas deferens, which could be seen with diabetes. No acute osseous abnormalities. XR/XR KUB IMPRESSION: Nonobstructive bowel gas pattern. No significant stool burden.
[2022-01-01 14:42] VITALS: BP 145/76; PULSE 94; RESP 18; TEMP 36.7; O2SAT 100; BMI 28.1
--- NOTE | 2022-01-01 15:05 | ECG_ITS ---
Test Reason : VOMITING Blood Pressure : / mmHG Vent. Rate : 085 BPM Atrial Rate : 085 BPM P-R Int : 162 ms QRS Dur : 080 ms QT Int : 422 ms P-R-T Axes : 058 006 102 degrees QTc Int : 502 ms Normal sinus rhythm Possible Left atrial enlargement Inferior infarct (cited on or before 30-AUG-2021) Prolonged QT Abnormal ECG When compared with ECG of 27-NOV-2021 09:32, No significant change was found Referred By: Leonila Lunsford Electronically Signed By:OLAYINKA ROBLES
--- NOTE | 2022-01-01 15:10 | ED.NAVMDI ---
HPI - Nausea/Vomiting/Diarrhea General Chief complaint: Nausea/Vomiting/Diarrhea Stated complaint: vomiting, diarrhea, chemo Time Seen by Provider: 01/01/22 15:00 Source: patient Mode of arrival: ambulatory Limitations: no limitations History of Present Illness HPI Narrative: 46-year-old male with a history of multiple myeloma on chemotherapy, diabetes insulin-dependent, CKD, coronary artery disease with ischemic cardiomyopathy status post AICD, CVA here with reports of nausea vomiting, diarrhea, abdominal discomfort since receiving chemotherapy on Tuesday. Patient reports this happens to him normally after he gets chemotherapy. He has had to be admitted before in the past. He denies any fevers, chills, cough, chest pain, difficulty breathing, urinary symptoms. He has tried to take Zofran at home but it makes him have palpitations so he did not want to take this. Associated nausea: Yes Related Data Home Medications Medication Instructions Recorded Confirmed albuterol sulfate 90 mcg/actuation 2 puff inhalation Q4H PRN Cough 04/25/20 12/15/21 aerosol inhaler amitriptyline 25 mg tablet 25 mg PO BEDTIME 04/25/20 12/15/21 atorvastatin 80 mg tablet 80 mg PO BEDTIME 04/25/20 12/15/21 clopidogrel 75 mg tablet 75 mg PO DAILY 04/25/20 12/15/21 docusate sodium 100 mg capsule 100 mg PO BID 04/25/20 12/15/21 gabapentin 300 mg capsule 300 mg PO DAILY 04/25/20 12/15/21 (Neurontin) insulin glargine 100 unit/mL (3 47 unit subcut QAM 04/25/20 12/15/21 mL) subcutaneous pen (Lantus Solostar U-100 Insulin) pantoprazole 40 mg tablet,delayed 40 mg PO DAILY 04/25/20 12/15/21 release sertraline 25 mg tablet 25 mg PO DAILY 04/25/20 12/15/21 azelastine 137 mcg (0.1 %) nasal 2 spray intranasal BID 02/04/21 12/15/21 spray aerosol fenofibrate nanocrystallized 145 1 tab PO DAILY 02/04/21 12/15/21 mg tablet fluticasone 250 mcg-salmeterol 50 1 inh inhalation Q12H 02/04/21 12/15/21 mcg/dose blistr powdr for inhalation gabapentin 300 mg capsule 600 mg PO BEDTIME 02/04/21 12/15/21 insulin lispro 100 unit/mL 10 - 18 unit subcut TID 02/04/21 12/15/21 subcutaneous pen (Humalog KwikPen (U-100) Insulin) pen needle, diabetic 31 gauge x 02/04/21 12/16/21 5/16 (BD Ultra-Fine Short Pen Needle) tizanidine 4 mg tablet 1 tab PO BEDTIME PRN muscle spasm 02/04/21 12/15/21 sertraline 100 mg tablet 100 mg PO DAILY 05/25/21 12/15/21 flash glucose sensor (FreeStyle #1 ea 11/06/21 12/16/21 [place]ille 14 Day Sensor) ondansetron HCl 4 mg tablet 8 mg PO Q8H PRN nausea 11/06/21 12/15/21 aspirin 325 mg tablet 1 tab PO DAILY 11/27/21 12/15/21 carvedilol 12.5 mg tablet 12.5 mg PO DAILY 11/27/21 12/15/21 nicotine 21 mg/24 hr daily 1 patch topical DAILY 12/31/21 transdermal patch Previous Rx's Medication Instructions Recorded valacyclovir 500 mg tablet 500 mg PO DAILY #60 tabs 05/25/21 (Valtrex) loperamide 2 mg capsule 2 mg PO Q4H PRN Diarrhea #30 caps 09/01/21 calcium carbonate 500 mg-vitamin 1 tab PO TID #90 tabs 09/22/21 D3 10 mcg (400 unit) tablet (Calcium 500 + D) lenalidomide 15 mg capsule 15 mg PO DAILY #21 caps 11/05/21 (Revlimid) sulfamethoxazole 800 1 tab PO QTUTHSA #60 tabs 12/18/21 mg-trimethoprim 160 mg tablet (Bactrim DS) torsemide 20 mg tablet 40 mg PO DAILY #30 tabs 12/18/21 tamsulosin 0.4 mg capsule 0.4 mg PO BEDTIME 90 days #90 caps 12/31/21 Allergies Allergy/AdvReac Type Severity Reaction Status Date / Time egg [EGG] Allergy Severe NAUSEA, Verified 12/31/21 09:25 ITCHY THROAT meperidine [From DEMEROL] Allergy Unknown AGITATION Verified 12/31/21 09:25 Review of Systems Review of Systems: Yes all other systems are reviewed and are negative Constitutional: Constitutional: Reports no additional constitutional complaints, Denies body ache(s), Denies chills, Denies fever(s), Denies headache(s) and Denies weakness Eyes: Eyes: Reports no additional eye complaints and Denies change in vision ENT: Reports system reviewed and no additional complaints, except as documented, Denies dizziness, Denies headache(s), Denies nasal congestion, Denies nasal discharge and Denies neck pain Cardiovascular: Cardiovascular: Reports no additional cardiovascular complaints, Denies chest pain, Denies leg edema and Denies dyspnea Respiratory: Respiratory: Reports no additional respiratory complaints, Denies cough and Denies dyspnea Gastrointestinal: Gastrointestinal: Reports no additional gastrointestinal complaints, Reports abdominal pain, Reports diarrhea, Reports nausea and Reports vomiting Genitourinary: Genitourinary: Denies urinary incontinence Musculoskeletal: Musculoskeletal: Reports no additional musculoskeletal complaints, Denies back pain, Denies arthralgias, Denies joint swelling, Denies neck pain, Denies numbness and Denies tingling Integumentary/Breasts: Skin/Breast: Reports system reviewed and no additional complaints, except as docu and Denies rash Neurologic: Reports system reviewed and no additional complaints, except as documented, Denies Abnormal speech present, Denies dizziness, Denies headache(s), Denies numbness, Denies tingling and Denies weakness PMFSH Past Medical History Attestation statement: The following information was validated with the patient. Source: old records reviewed Medical History Bladder pain CAD (coronary artery disease) CKD (chronic kidney disease) CVA (cerebral vascular accident) Diabetes mellitus HLD (hyperlipidemia) HTN (hypertension) ICD (implantable cardioverter-defibrillator) in place Ischemic cardiomyopathy Monoclonal gammopathy Multiple myeloma Multiple myeloma Surgical History Hx of cardiac cath (~2017) S/P CABG x 2 (~02/2019) Family History Family History Father Diabetes mellitus Esophageal cancer Mother Diabetes mellitus Brother Diabetes mellitus Sister Diabetes mellitus Social History Social History Household Members: Family Housing: Apartment Do you presently have visiting nurse or other home services: No Alcohol intake: never Patient Tobacco Use Status: Never used Tobacco Tobacco use type: Cigarette Substance Use Type: Marijuana Advance Directives: Yes Advance Directives on File: Yes Advance Directives Date on File: 08/31/21 service: No Current occupational status: disabled Physical Exam Vital Signs: Vital Signs: Last Vital Signs Temp 98.0 F 01/01/22 14:42 Pulse 89 01/01/22 17:28 Resp 20 01/01/22 18:01 BP 142/83 H 01/01/22 17:28 Pulse Ox 95 01/01/22 17:28 O2 Del Method 01/01/22 17:28 BMI result Body Mass Index 28.1 Const: Other: In pain General: alert Orientation/consciousness: patient oriented x3 Limitations: no limitations HEENT: Head: Yes normal to inspection Ears: hearing grossly normal bilaterally General nose exam: Normal external nose present Face and sinus: Yes normal facial exam Mouth: Normal oral and palatal mucosa present Throat: Yes posterior oropharynx normal Eyes: General: appearance normal, both eyes and all related structures Pupils: Equal, round and reactive pupils present Neck: Neck: Yes normal visual inspection Chest: Chest palpation & inspection: normal inspection of the chest Resp: Effort & Inspection: normal respiratory effort Auscultation: clear to auscultation bilaterally Cardio: Rate: regular rate Rhythm: regular rhythm Peripheral pulses: Peripheral pulses 2+ throughout GI: Inspection: Yes normal to inspection Palpation (GI): Soft to palpation and Tenderness to palpation present (GI) ( mild diffuse tenderness with no rebound or guarding) Auscultation: normal bowel sounds Back/Spine/Pelvis: Thoracic/Lumbar Spine: thoracic and lumbar spine normal to inspection Skin: General skin exam: no rashes or lesions noted Neuro: General: patient oriented x3, no focal motor deficits and normal sensation to monofilament Cranial nerves: Yes Equal, round and reactive pupils present Cognition (Neuro): normal cognition Speech: No Abnormal speech present Gait exam (Neuro): Normal gait present Motor exam (neuro): 5/5 motor strength present throughout Extrem: General: Yes normal to inspection Course Course Course Narrative: 1744- labs show acute on chronic kidney injury. Patient reports continued pain and vomiting. Will repeat dose of antiemetic and analgesia. If continued symptoms patient may need admission Reevaluation(s) Reevaluation #1: 1914- Patient reports continued pain and vomiting. He reports very similar symptoms when he has received chemotherapy in the past. He had an abdominal CT scan on December 15. His abdomen is a nonfocal and benign. Likely secondary to chemotherapy. Will plan for admission. Reevaluation #2: 1929-D/w with Dr Ramirez who accepted admission MDM - Nausea/Vomiting/Diarrhea MDM Narrative Medical decision making narrative: 46-year-old male with history of multiple myeloma currently receiving chemotherapy with last chemotherapy 2 days ago here with intractable nausea, vomiting, diarrhea with abdominal discomfort unrelieved with home Zofran. Patient has history of same requiring admission. States this feels similar. His abdomen is mildly tender diffusely with no rebound or guarding. No focal tenderness. He is actively vomiting. Will check labs, UA, COVID screen. Will place PIV and give normal saline bolus, Reglan, Benadryl, and famotidine and reassess Differential Diagnosis Differential diagnosis: Likely drug-induced nausea and vomiting Medical Records Attestation: I reviewed the patient's medical records. Lab Data Attestation: I reviewed the patient's lab results. Result diagrams: 01/01/22 15:35 01/01/22 15:35 Labs: Lab Results 01/01/22 01/01/22 01/01/22 Range/Units 15:35 15:35 15:35 WBC 5.7 (4.8-10.8) X10*3/uL RBC 2.87 L (4.60-5.80) X10*6/uL Hgb 9.1 L (14.0-18.0) g/dl Hct 27.0 L (42.0-52.0) % MCV 94.1 (80.0-98.0) fL MCH 31.7 (27.0-33.0) pg MCHC 33.7 (31.0-36.0) g/dl RDW 15.7 (11.0-16.0) % Plt Count 257 (160-400) X10*3/uL MPV 10.6 (9.4-12.4) fL Immature Gran % (Auto) 0.5 H (0.0-0.4) % Neut % (Auto) 79.7 H (45-73) % Lymph % (Auto) 12.7 L (20-40) % [place] % (Auto) 3.9 (2-11) % Eos % (Auto) 3.2 (0-4) % Baso % (Auto) 0.0 (0-2) % Lymph # (Auto) 0.7 L (1.2-4.9) X10*3/uL [place] # (Auto) 0.2 (0.1-1.2) X10*3/uL Eos # (Auto) 0.2 (0.0-0.4) X10*3/uL Baso # (Auto) 0.0 (0.0-0.2) X10*3/uL Abs Immat Gran (auto) 0.03 (0.00-0.03) X10*3/uL Absolute Neuts (auto) 4.5 (2.0-8.3) x10*3/uL Absolute Nucleated RBC 0.000 (0.0-0.012) X10*3/uL Nucleated RBC % (auto) 0.0 (0.0-0.2) /100WBC PT 12.0 (10.0-13.1) SEC INR 1.0 (0.9-1.1) Sodium (135-145) mmol/L Potassium (3.3-5.1) mmol/L Chloride (96-108) mmol/L Carbon Dioxide (22-29) mmol/L Anion Gap (12-20) BUN (9-16) mg/dL Creatinine (0.5-1.4) mg/dL Estim Creat Clear Calc Estimated GFR Random Glucose (60-115) mg/dL Lactic Acid (0.5-2.0) mmol/L Lactic Acid F/U @ 2Hr (0.5-2.0) mmol/L Calcium (8.4-10.2) mg/dL Magnesium (1.6-2.6) mg/dL Total Bilirubin (0.0-1.0) mg/dL Direct Bilirubin (0.0-0.5) mg/dL AST (5-37) U/L ALT (0-40) U/L Alkaline Phosphatase (39-117) U/L Total Protein (6.5-8.0) g/dL Albumin (3.5-5.0) g/dL COVID-19 (KATE) Negative (Negative) COVID-19 Clin Com See Note 01/01/22 01/01/22 01/01/22 Range/Units 15:35 15:35 19:05 WBC (4.8-10.8) X10*3/uL RBC (4.60-5.80) X10*6/uL Hgb (14.0-18.0) g/dl Hct (42.0-52.0) % MCV (80.0-98.0) fL MCH (27.0-33.0) pg MCHC (31.0-36.0) g/dl RDW (11.0-16.0) % Plt Count (160-400) X10*3/uL MPV (9.4-12.4) fL Immature Gran % (Auto) (0.0-0.4) % Neut % (Auto) (45-73) % Lymph % (Auto) (20-40) % [place] % (Auto) (2-11) % Eos % (Auto) (0-4) % Baso % (Auto) (0-2) % Lymph # (Auto) (1.2-4.9) X10*3/uL [place] # (Auto) (0.1-1.2) X10*3/uL Eos # (Auto) (0.0-0.4) X10*3/uL Baso # (Auto) (0.0-0.2) X10*3/uL Abs Immat Gran (auto) (0.00-0.03) X10*3/uL Absolute Neuts (auto) (2.0-8.3) x10*3/uL Absolute Nucleated RBC (0.0-0.012) X10*3/uL Nucleated RBC % (auto) (0.0-0.2) /100WBC PT (10.0-13.1) SEC INR (0.9-1.1) Sodium 137 (135-145) mmol/L Potassium 4.0 (3.3-5.1) mmol/L Chloride 102 (96-108) mmol/L Carbon Dioxide 23 (22-29) mmol/L Anion Gap 16 (12-20) BUN 17 H (9-16) mg/dL Creatinine 2.16 H (0.5-1.4) mg/dL Estim Creat Clear Calc 43.2 Estimated GFR 33 Random Glucose 225 H (60-115) mg/dL Lactic Acid 2.9 H* (0.5-2.0) mmol/L Lactic Acid F/U @ 2Hr 0.8 (0.5-2.0) mmol/L Calcium 9.0 (8.4-10.2) mg/dL Magnesium 1.5 L (1.6-2.6) mg/dL Total Bilirubin 0.3 (0.0-1.0) mg/dL Direct Bilirubin < 0.2 (0.0-0.5) mg/dL AST 23 (5-37) U/L ALT 23 (0-40) U/L Alkaline Phosphatase 88 (39-117) U/L Total Protein 7.1 (6.5-8.0) g/dL Albumin 4.4 (3.5-5.0) g/dL COVID-19 (KATE) (Negative) COVID-19 Clin Com ECG Data Attestation: I personally reviewed and interpreted this ECG as follows: ECG interpretation date: 01/01/22 ECG interpretation time: 15:04 Interpretation: normal sinus rhythm with a rate of 85, normal [place], normal QRS, QTC is 502 Discharge Plan Discharge Clinical Impression: Drug-induced nausea and vomiting, Acute on chronic kidney failure Patient Disposition: Admitted As Inpatient Prescriptions: No Action sertraline 100 mg tablet 100 mg PO DAILY Rx Instructions: one 25 mg tab + one 100 mg tab = 125 mg daily dose valacyclovir [Valtrex] 500 mg Tablet 500 mg PO DAILY Qty: 60 6RF calcium carbonate-vitamin D3 [Calcium 500 + D] 500 mg-10 mcg (400 unit) Tablet 1 tab PO TID Qty: 90 4RF fluticasone propion-salmeterol 250-50 mcg/dose Blister With Device 1 inh INHALATION Q12H gabapentin 300 mg Capsule 600 mg PO BEDTIME azelastine 137 mcg (0.1 %) Aerosol,[place] 2 spray INTRANASAL BID insulin lispro [Humalog KwikPen Insulin] 100 unit/mL Insulin Pen 10 - 18 unit SUBCUT TID (DME) pen needle, diabetic [BD Ultra-Fine Short Pen Needle] 31 gauge x 5/16 needle subcut QID fenofibrate nanocrystallized 145 mg tablet 1 tab PO DAILY tizanidine 4 mg tablet 1 tab PO BEDTIME PRN (Reason: muscle spasm) torsemide 20 mg tablet 40 mg PO DAILY Qty: 30 0RF sulfamethoxazole-trimethoprim [Bactrim DS] 800-160 mg Tablet 1 tab PO QTUTHSA Qty: 60 5RF loperamide 2 mg Capsule 2 mg PO Q4H PRN (Reason: Diarrhea) Qty: 30 0RF lenalidomide [Revlimid] 15 mg Capsule 15 mg PO DAILY Qty: 21 4RF Rx Instructions: Take on D1-14 of 21D Velcade Schedule, swallow whole with glass of water; do not open, crush, chew , break, or dissolve aspirin 325 mg tablet 1 tab PO DAILY carvedilol 12.5 mg tablet 12.5 mg PO DAILY clopidogrel 75 mg tablet 75 mg PO DAILY atorvastatin 80 mg tablet 80 mg PO BEDTIME albuterol sulfate 90 mcg/actuation HFA aerosol inhaler 2 puff inhalation Q4H PRN (Reason: Cough) docusate sodium 100 mg capsule 100 mg PO BID Rx Instructions: hold for diarrhea pantoprazole 40 mg tablet,delayed release (DR/EC) 40 mg PO DAILY sertraline 25 mg tablet 25 mg PO DAILY Rx Instructions: one 25 mg tab + one 100 mg tab = 125 mg daily dose amitriptyline 25 mg tablet 25 mg PO BEDTIME gabapentin [Neurontin] 300 mg capsule 300 mg PO DAILY Lantus Solostar U-100 Insulin 100 unit/mL (3 mL) insulin pen 47 unit subcut QAM nicotine 21 mg/24 hr patch 24 hour 1 patch topical DAILY tamsulosin 0.4 mg capsule 0.4 mg PO BEDTIME 90 Days Qty: 90 1RF (DME) FreeStyle [place] 14 Day Sensor Kit See Rx Instructions topical Q2W Qty: 1 Rx Instructions: As directed ondansetron HCl 4 mg tablet 8 mg PO Q8H PRN (Reason: nausea)
[2022-01-01] MEDS: 0.9 % Sodium Chloride 1,000 ML 999 ML IV (15:39)
[2022-01-01] MEDS: diphenhydrAMINE HCL 50 MG/ML VIAL 25 MG IVPUSH (15:39)
[2022-01-01] MEDS: Metoclopramide HCl 10 MG/2 ML VIAL IVPUSH (15:39)
[2022-01-01 15:40] LABS: MANUAL DIFF FLAG NO
[2022-01-01] MEDS: Famotidine/PF 20 MG/2 ML VIAL IVPUSH (15:40)
[2022-01-01 15:44] LABS: Eosinophils Absolute Auto 0.2 X10*3/uL (0.0-0.4); Eosinophils Percent Auto 3.2 % (0-4); Hemoglobin 9.1 g/dl (14.0-18.0); Imm Gran Abs Auto 0.03 X10*3/uL (0.00-0.03); Imm Gran Pct Auto 0.5 % (0.0-0.4); Lymphocytes Absolute Auto 0.7 X10*3/uL (1.2-4.9); Lymphocytes Percent Auto 12.7 % (20-40); Mean Corpuscular HGB Conc 33.7 g/dl (31.0-36.0); Mean Corpuscular Hemoglobin 31.7 pg (27.0-33.0); Mean Corpuscular Volume 94.1 fL (80.0-98.0); Mean Platelet Volume 10.6 fL (9.4-12.4); Monocytes Absolute Auto 0.2 X10*3/uL (0.1-1.2); Monocytes Percent Auto 3.9 % (2-11); Neutrophils Absolute Auto 4.5 x10*3/uL (2.0-8.3); Neutrophils Percent Auto 79.7 % (45-73); Platelet Count 257 X10*3/uL (160-400); Red Blood Count 2.87 X10*6/uL (4.60-5.80); Red Cell Distribution Width 15.7 % (11.0-16.0); White Blood Count 5.7 X10*3/uL (4.8-10.8)
[2022-01-01 16:00] LABS: Alanine Aminotransferase 23 U/L (0-40); Albumin Level 4.4 g/dL (3.5-5.0); Alkaline Phosphatase 88 U/L (39-117); Anion Gap 16 (12-20); Aspartate Amino Transferase 23 U/L (5-37); Bilirubin Direct < 0.2 mg/dL (0.0-0.5); Bilirubin Total 0.3 mg/dL (0.0-1.0); Blood Urea Nitrogen 17 mg/dL (9-16); COVID-19 Test Negative (Negative); Carbon Dioxide 23 mmol/L (22-29); Chloride 102 mmol/L (96-108); Creatinine Clr Calc Pharmacy 43.2; Estimated Glomerular Filt Rate 33; Glucose Random 225 mg/dL (60-115); Lactic Acid 2.9 mmol/L (0.5-2.0); Magnesium 1.5 mg/dL (1.6-2.6); Sodium 137 mmol/L (135-145); Total Protein 7.1 g/dL (6.5-8.0)
[2022-01-01] MEDS: Magnesium Sulfate/H2O 2 GM/50 ML PIGGYBACK IV (16:41)
[2022-01-01 17:28] VITALS: BP 142/83; PULSE 89; RESP 20; O2SAT 95
[2022-01-01 17:38] LABS: Reflex Lactate? Lactic Acid Added
[2022-01-01 18:01] VITALS: RESP 20
[2022-01-01] MEDS: Morphine Sulfate 4 MG/ML CARTRIDGE IVPUSH (18:01)
[2022-01-01] MEDS: LORazepam 2 MG/ML VIAL 1 MG IVPUSH (18:02)
[2022-01-01 19:22] LABS: ~Lactic Acid-LAB USE ONLY 0.8 mmol/L (0.5-2.0)
[2022-01-01 19:43] VITALS: RESP 16
[2022-01-01] MEDS: HYDROmorphone HCl 0.5 MG/0.5 ML SYRINGE IVPUSH (19:43)
--- NOTE | 2022-01-01 20:26 | PHA.MEDREC ---
med rec complete, no issues Pharmacy Consult ? Medication Reconciliation Pharmacy has completed the medication reconciliation.
--- NOTE | 2022-01-01 21:50 | PM.IMHP ---
History of Present Illness Date of Service: 01/01/22 Chief Complaint: N/V This is a 46-year-old female with recent diagnosis multiple myeloma on chemotherapy, diabetes, CAD, CMP status post AICD, CKD, CVA among others who presents to the hospital with complaints of intractable nausea vomiting. Patient underwent chemotherapy on Tuesday and according to the at bedside this occurs almost after every chemotherapy treatment where he becomes nauseous, has intractable vomiting and abdominal pain as well as diarrhea. Patient is very uncomfortable, his moaning, opens his eyes answers questions appropriately but mostly goes back to sleep and starts moaning and whining. Patient reports he has pain all over his body, reports that speaks a Ismael we were sent his shoulders and legs. reports multiple episodes of diarrhea, nonbloody. Reports that also have is after chemotherapy On arrival to the ED hemodynamically stable with no significant abnormal vitals Labs are significant for hemoglobin 9.1, hematocrit 27.0, BUN of 17, creatinine of 2.16 which is increased from his most recent, lactic acid of 2.9, magnesium of 1.5, KUB negative Patient received multiple rounds of antiemetics with no relief, patient will be admitted for intractable nausea vomiting Review of Systems Review of Systems: Yes all other systems are reviewed and are negative [facility] Medical History Bladder pain CAD (coronary artery disease) CKD (chronic kidney disease) CVA (cerebral vascular accident) Diabetes mellitus HLD (hyperlipidemia) HTN (hypertension) ICD (implantable cardioverter-defibrillator) in place Ischemic cardiomyopathy Monoclonal gammopathy Multiple myeloma Multiple myeloma Family History Father Diabetes mellitus Esophageal cancer Mother Diabetes mellitus Brother Diabetes mellitus Sister Diabetes mellitus Surgical History Hx of cardiac cath (~2017) S/P CABG x 2 (~02/2019) Social History Household Members: Family Housing: Apartment Do you presently have visiting nurse or other home services: No Alcohol intake: never Patient Tobacco Use Status: Never used Tobacco Tobacco use type: Cigarette Substance Use Type: Marijuana Advance Directives: Yes Advance Directives on File: Yes Advance Directives Date on File: 08/31/21 service: No Current occupational status: disabled Meds Allergies Allergy/AdvReac Type Severity Reaction Status Date / Time egg [EGG] Allergy Severe NAUSEA, Verified 12/31/21 09:25 ITCHY THROAT meperidine [From DEMEROL] Allergy Unknown AGITATION Verified 12/31/21 09:25 Active Medications: Current Medications Acetaminophen (Acetaminophen 325 Mg Tablet) 650 mg PO Q6H PRN PRN Reason: Pain, Mild (Pain Scale 1-3) Heparin Sodium (Porcine) (Heparin Sodium,Porcine 5,000 Unit/Ml Vial) 5,000 unit SUBCUT Q12H [facility] Pharmacy Consult (Consult Rx Perform Med Rec) 1 each MISCELLANE ONCE PRN PRN Reason: Consult order Prochlorperazine Edisylate (Prochlorperazine Edisylate 10 Mg/2 Ml Vial) 5 mg IVPUSH Q6H PRN PRN Reason: Nausea and Vomiting Sodium Chloride (0.9 % Sodium Chloride Flush 3 Ml Syringe) 3 ml IVFLUSH QSHIFT [facility] Home Medications Medication Instructions Recorded Confirmed Last Taken Type albuterol sulfate 90 mcg/actuation 2 puff inhalation Q4H PRN Cough 04/25/20 01/01/22 11/25/21 History aerosol inhaler amitriptyline 25 mg tablet 25 mg PO BEDTIME 04/25/20 01/01/22 11/25/21 History atorvastatin 80 mg tablet 80 mg PO BEDTIME 04/25/20 01/01/22 11/25/21 History clopidogrel 75 mg tablet 75 mg PO DAILY 04/25/20 01/01/22 11/25/21 History gabapentin 300 mg capsule 300 mg PO DAILY 04/25/20 01/01/22 11/25/21 History (Neurontin) insulin glargine 100 unit/mL (3 47 unit subcut QAM 04/25/20 01/01/22 11/25/21 History mL) subcutaneous pen (Lantus Solostar U-100 Insulin) pantoprazole 40 mg tablet,delayed 40 mg PO DAILY 04/25/20 01/01/22 11/25/21 History release sertraline 25 mg tablet 25 mg PO DAILY 04/25/20 01/01/22 11/25/21 History azelastine 137 mcg (0.1 %) nasal 2 spray intranasal BID 02/04/21 01/01/22 11/25/21 History spray aerosol fenofibrate nanocrystallized 145 1 tab PO DAILY 02/04/21 01/01/22 11/25/21 History mg tablet gabapentin 300 mg capsule 600 mg PO BEDTIME 02/04/21 01/01/22 11/25/21 History insulin lispro 100 unit/mL 10 - 18 unit subcut TID 02/04/21 01/01/22 11/25/21 History subcutaneous pen (Humalog KwikPen (U-100) Insulin) pen needle, diabetic 31 gauge x 02/04/21 12/16/21 11/25/21 History 5/16 (BD Ultra-Fine Short Pen Needle) sertraline 100 mg tablet 100 mg PO DAILY 05/25/21 01/01/22 11/25/21 History flash glucose sensor (FreeStyle #1 ea 11/06/21 12/16/21 11/25/21 History Neville 14 Day Sensor) aspirin 325 mg tablet 1 tab PO DAILY 11/27/21 01/01/22 11/25/21 History carvedilol 12.5 mg tablet 12.5 mg PO DAILY 11/27/21 01/01/22 11/25/21 History nicotine 21 mg/24 hr daily 1 patch topical DAILY 12/31/21 01/01/22 Unknown History transdermal patch Physical Exam Vital Signs and Narrative: Vital Signs: Last Vital Signs Temp 98.0 F 01/01/22 14:42 Pulse 89 01/01/22 17:28 Resp 16 01/01/22 19:43 BP 142/83 H 01/01/22 17:28 Pulse Ox 95 01/01/22 17:28 O2 Del Method 01/01/22 17:28 BMI result Body Mass Index 28.1 Const: Other: ill-appearing General: cooperative Orientation/consciousness: patient oriented x3 Eyes: General: appearance normal, both eyes and all related structures Resp: Effort & Inspection: normal respiratory effort Auscultation: clear to auscultation bilaterally Cardio: Rate: regular rate Rhythm: regular rhythm GI: Other: Abdomen is soft, nontender, no rebound or guarding Palpation (GI): Soft to palpation Auscultation: normal bowel sounds Skin: General skin exam: no rashes or lesions noted Neuro: General: patient oriented x3 Cognition (Neuro): normal cognition Extrem: General: Yes normal to inspection and Yes no pedal edema Results Labs CBC and Chem 7: 01/01/22 15:35 01/01/22 15:35 Labs: Laboratory Results - last 24 hr 01/01/22 01/01/22 01/01/22 15:35 15:35 15:35 MCV 94.1 MCH 31.7 MCHC 33.7 RDW 15.7 Plt Count 257 MPV 10.6 Immature Gran % (Auto) 0.5 H Neut % (Auto) 79.7 H Lymph % (Auto) 12.7 L [place] % (Auto) 3.9 Eos % (Auto) 3.2 Baso % (Auto) 0.0 Lymph # (Auto) 0.7 L [place] # (Auto) 0.2 Eos # (Auto) 0.2 Baso # (Auto) 0.0 Abs Immat Gran (auto) 0.03 Absolute Neuts (auto) 4.5 Absolute Nucleated RBC 0.000 Nucleated RBC % (auto) 0.0 PT 12.0 INR 1.0 Anion Gap Estim Creat Clear Calc Estimated GFR Random Glucose Lactic Acid Lactic Acid F/U @ 2Hr Calcium Magnesium Total Bilirubin Direct Bilirubin AST ALT Alkaline Phosphatase Total Protein Albumin COVID-19 (KATE) Negative COVID-19 Clin Com See Note 01/01/22 01/01/22 01/01/22 15:35 15:35 19:05 MCV MCH MCHC RDW Plt Count MPV Immature Gran % (Auto) Neut % (Auto) Lymph % (Auto) [place] % (Auto) Eos % (Auto) Baso % (Auto) Lymph # (Auto) [place] # (Auto) Eos # (Auto) Baso # (Auto) Abs Immat Gran (auto) Absolute Neuts (auto) Absolute Nucleated RBC Nucleated RBC % (auto) PT INR Anion Gap 16 Estim Creat Clear Calc 43.2 Estimated GFR 33 Random Glucose 225 H Lactic Acid 2.9 H* Lactic Acid F/U @ 2Hr 0.8 Calcium 9.0 Magnesium 1.5 L Total Bilirubin 0.3 Direct Bilirubin < 0.2 AST 23 ALT 23 Alkaline Phosphatase 88 Total Protein 7.1 Albumin 4.4 COVID-19 (KATE) COVID-19 Clin Com Assessment and Plan (1) Drug-induced nausea and vomiting: Status: Acute (2) Acute on chronic kidney failure: Status: Acute Plan 46-year-old male with past medical history multiple myeloma undergoing chemotherapy presents the hospital with intractable nausea vomiting # chemotherapy-induced nausea vomiting - intractable at this time - will continue antiemetic, IV fluids - symptomatic management # acute on chronic kidney failure - secondary to dehydration - IV fluids - follow BMP # # Cardiomyopathy EF 30-35% status post AICD no acute exacerbation noted, continue all home medications outpatient follow-up with Cardiology # History of CVA/coronary artery disease - continue home meds ?# Depression -? continue sertraline, and amitriptyline DVT prophylaxis: Heparin subQ Quality Stroke Does the patient have a stroke diagnosis?: No VTE Prior VTE?: No VTE Risk Level:: Medical - moderate - high VTE Device Contraindication: Treatment Not Indicated VTE Drug Contraindication: N/A - Med Ordered
[2022-01-01] MEDS: Atorvastatin Calcium 80 MG TABLET PO (22:36)
[2022-01-01] MEDS: Gabapentin 300 MG CAPSULE 600 MG PO (22:36)
[2022-01-01] MEDS: Heparin Sodium,Porcine 5,000 UNIT/ML VIAL 5000 UNIT SUBCUT (22:36)
[2022-01-01] MEDS: Amitriptyline HCl 25 MG TABLET PO (22:36)
[2022-01-02] MEDS: 0.9 % Sodium Chloride Flush 3 ML SYRINGE IVFLUSH (01:43)
[2022-01-02 04:08] VITALS: BP 139/65; PULSE 88; RESP 12; TEMP 36.6; O2SAT 94
[2022-01-02 05:53] VITALS: BMI 30.2
[2022-01-02 05:58] VITALS: BP 163/90; PULSE 89; RESP 16; TEMP 35.9; O2SAT 96
[2022-01-02] MEDS: Omeprazole 20 MG CAPSULE.DR PO (06:16)
[2022-01-02] MEDS: Lactated Ringers 1,000 ML 100 ML IVCONT (06:16)
[2022-01-02 06:58] LABS: MANUAL DIFF FLAG NO
[2022-01-02 07:10] LABS: Basophils Percent Auto 0.2 % (0-2); Eosinophils Absolute Auto 0.3 X10*3/uL (0.0-0.4); Hemoglobin 9.1 g/dl (14.0-18.0); Imm Gran Abs Auto 0.02 X10*3/uL (0.00-0.03); Imm Gran Pct Auto 0.3 % (0.0-0.4); Lymphocytes Absolute Auto 0.8 X10*3/uL (1.2-4.9); Lymphocytes Percent Auto 13.3 % (20-40); Mean Corpuscular HGB Conc 33.7 g/dl (31.0-36.0); Mean Corpuscular Hemoglobin 32.4 pg (27.0-33.0); Mean Corpuscular Volume 96.1 fL (80.0-98.0); Monocytes Absolute Auto 0.5 X10*3/uL (0.1-1.2); Monocytes Percent Auto 8.4 % (2-11); Neutrophils Absolute Auto 4.3 x10*3/uL (2.0-8.3); Neutrophils Percent Auto 72.8 % (45-73); Platelet Count 240 X10*3/uL (160-400); Red Blood Count 2.81 X10*6/uL (4.60-5.80); Red Cell Distribution Width 15.6 % (11.0-16.0)
[2022-01-02 07:19] VITALS: BP 151/85; PULSE 83; RESP 18; TEMP 37.5; O2SAT 97
[2022-01-02 07:29] LABS: Anion Gap 13 (12-20); Blood Urea Nitrogen 13 mg/dL (9-16); Calcium 8.6 mg/dL (8.4-10.2); Carbon Dioxide 24 mmol/L (22-29); Chloride 107 mmol/L (96-108); Creatinine Clr Calc Pharmacy 57.8; Estimated Glomerular Filt Rate 44; Glucose Random 166 mg/dL (60-115); Potassium 4.1 mmol/L (3.3-5.1); Sodium 140 mmol/L (135-145)
[2022-01-02] MEDS: carvediloL 12.5 MG TABLET PO (09:28)
[2022-01-02] MEDS: Insulin Glargine,Hum.rec.anlog 100 UNIT/ML 10 ML VIAL 47 UNIT SUBCUT (09:28)
[2022-01-02] MEDS: Gabapentin 300 MG CAPSULE PO (09:28)
[2022-01-02] MEDS: Sertraline HCL 100 MG TABLET PO (09:28)
[2022-01-02] MEDS: Sertraline HCL 25 MG TABLET PO (09:28)
[2022-01-02] MEDS: Clopidogrel Bisulfate 75 MG TABLET PO (09:28)
[2022-01-02] MEDS: Fenofibrate 160 MG TABLET PO (09:28)
[2022-01-02] MEDS: Torsemide 20 MG TABLET 40 MG PO (09:28)
[2022-01-02] MEDS: Aspirin 325 MG TABLET PO (09:28)
[2022-01-02] MEDS: Calcium + Vitamin D 250 MG TABLET 500 MG PO ×3 (09:28→20:09)
[2022-01-02] MEDS: Nicotine 21 MG PATCH.TD24 TRANSDERMA (09:29)
[2022-01-02] MEDS: Heparin Sodium,Porcine 5,000 UNIT/ML VIAL 5000 UNIT SUBCUT ×2 (09:29→22:16)
[2022-01-02] MEDS: Prochlorperazine Edisylate 10 MG/2 ML VIAL 5 MG IVPUSH ×2 (11:12→20:06)
[2022-01-02] MEDS: Docusate Sodium 100 MG CAPSULE PO ×2 (11:12→20:08)
[2022-01-02] MEDS: bisacodyL 5 MG TABLET.DR PO (11:13)
[2022-01-02] MEDS: HYDROmorphone HCl 0.5 MG/0.5 ML SYRINGE IVPUSH ×3 (11:13→20:06)
[2022-01-02] MEDS: Lidocaine 4 % Patch ADH..PATCH 1 PATCH TRANSDERMA (11:18)
[2022-01-02 11:22] VITALS: BP 134/70; PULSE 77; RESP 18; TEMP 36.8; O2SAT 96
[2022-01-02 11:58] LABS: Glucose, Whole Blood 139 mg/dL (60-115)
--- NOTE | 2022-01-02 13:41 | P.PNIM_ITS ---
Subjective Subjective Date of Service: 01/02/22 Interval History: Persistent nausea vomiting Review of Systems Still has nausea vomiting, unable to tolerate much diet yet. He says he had last chemo on red day and after that started having nausea vomiting which is not improving. Also has chronic pains. Physical Exam Vital Signs: Vital Signs: Last Vital Signs Temp 98.2 F 01/02/22 11:22 Pulse 77 01/02/22 11:22 Resp 18 01/02/22 11:22 BP 134/70 01/02/22 11:22 Pulse Ox 96 01/02/22 11:22 O2 Del Method 01/02/22 11:22 BMI result Body Mass Index 30.2 Appearance: Alert.? Oriented X3.?somewhat pain. cvs: rrr, [id number] , no murmur res: clear to auscultation ,no rhonchii or wheezing abd: no rebound or guarding ,nt, bs present. ext pulses present , no cyanosis. neuro: axo3 , nonfocal. Objective Data Active Medications Acetaminophen (Acetaminophen 325 Mg Tablet) 650 mg PO Q6H PRN PRN Reason: Pain, Mild (Pain Scale 1-3) Albuterol Sulfate (Albuterol Sulfate 90 Mcg 8 Gm Inhaler) 2 puff INHALE Q4H PRN PRN Reason: Cough Amitriptyline HCl (Amitriptyline Hcl 25 Mg Tablet) 25 mg PO BEDTIME [facility] Last Admin: 01/01/22 22:36 Dose: 25 mg Documented By: SHARDA Aspirin (Aspirin 325 Mg Tablet) 325 mg PO DAILY [facility] Last Admin: 01/02/22 09:28 Dose: 325 mg Documented By: GIRMA Atorvastatin Calcium (Atorvastatin Calcium 80 Mg Tablet) 80 mg PO BEDTIME [facility] Last Admin: 01/01/22 22:36 Dose: 80 mg Documented By: SHARDA Azelastine HCl (Azelastine Hcl Nasal 137 Mcg/[place] 30 Ml) 2 spray NOSTRIL-B BID [facility] Last Admin: 01/02/22 09:30 Dose: Not Given Documented By: GIRMA Non-Admin Reason: Med Not Available Bisacodyl (Bisacodyl 5 Mg Tablet.) 5 mg PO DAILY [facility] Last Admin: 01/02/22 11:13 Dose: 5 mg Documented By: GIRMA Calcium Carbonate/Cholecalciferol (Calcium + Vitamin D 250 Mg Tablet) 500 mg PO TID [facility] Last Admin: 01/02/22 09:28 Dose: 500 mg Documented By: GIRMA Carvedilol (Carvedilol 12.5 Mg Tablet) 12.5 mg PO DAILY [facility]; Protocol Last Admin: 01/02/22 09:28 Dose: 12.5 mg Documented By: GIRMA Clopidogrel Bisulfate (Clopidogrel Bisulfate 75 Mg Tablet) 75 mg PO DAILY [facility] Last Admin: 01/02/22 09:28 Dose: 75 mg Documented By: GIRMA Docusate Sodium (Docusate Sodium 100 Mg Capsule) 100 mg PO BID [facility] Last Admin: 01/02/22 11:12 Dose: 100 mg Documented By: GIRMA Fenofibrate (Fenofibrate 160 Mg Tablet) 160 mg PO DAILY [facility] Last Admin: 01/02/22 09:28 Dose: 160 mg Documented By: GIRMA Gabapentin (Gabapentin 300 Mg Capsule) 600 mg PO BEDTIME [facility] Last Admin: 01/01/22 22:36 Dose: 600 mg Documented By: SHARDA Gabapentin (Gabapentin 300 Mg Capsule) 300 mg PO DAILY [facility] Last Admin: 01/02/22 09:28 Dose: 300 mg Documented By: GIRMA Heparin Sodium (Porcine) (Heparin Sodium,Porcine 5,000 Unit/Ml Vial) 5,000 unit SUBCUT Q12H [facility] Last Admin: 01/02/22 09:29 Dose: 5,000 unit Documented By: GIRMA Hydromorphone HCl (Hydromorphone Hcl 0.5 Mg/0.5 Ml Syringe) 0.5 mg IVPUSH Q4H PRN; Protocol PRN Reason: Pain, Mild (Pain Scale 1-3) Last Admin: 01/02/22 11:13 Dose: 0.5 mg Documented By: GIRMA Lactated Ringer's (Lr) 1,000 mls @ 50 mls/hr IVCONT .Q20H [facility] Last Admin: 01/02/22 06:16 Dose: 100 mls/hr Documented By: ROSALIND Insulin Glargine (Insulin Glargine,Hum.Rec.Anlog 100 Unit/Ml 10 Ml Vial) 47 unit SUBCUT DAILY [facility] Last Admin: 01/02/22 09:28 Dose: 47 unit Documented By: GIRMA Insulin Human Lispro (Insulin Lispro 100 Unit/Ml 3 Ml Vial) 0 unit SUBCUT TIDAC [facility]; Protocol Last Admin: 01/02/22 11:59 Dose: Not Given Documented By: GIRMA Non-Admin Reason: No Insulin Coverage Lidocaine (Lidocaine 4 % Patch Adh..Patch) 1 patch TRANSDERMA DAILY [facility]; Protocol Last Admin: 01/02/22 11:18 Dose: 1 patch Documented By: GIRMA Loperamide HCl (Loperamide Hcl 2 Mg Capsule) 2 mg PO Q4H PRN PRN Reason: Diarrhea Nicotine (Nicotine 21 Mg Patch.Td24) 21 mg TRANSDERMA DAILY [facility] Last Admin: 01/02/22 09:29 Dose: 21 mg Documented By: GIRMA Non-Formulary Medication (Lenalidomide [Revlimid]) 15 mg PO DAILY [facility] Omeprazole (Omeprazole 20 Mg Capsule.Dr) 20 mg PO DAILY@0630 [facility] Last Admin: 01/02/22 06:16 Dose: 20 mg Documented By: ROSALIND Pharmacy Consult (Consult Rx Perform Med Rec) 1 each MISCELLANE ONCE PRN PRN Reason: Consult order Prochlorperazine Edisylate (Prochlorperazine Edisylate 10 Mg/2 Ml Vial) 5 mg IVPUSH Q6H PRN PRN Reason: Nausea and Vomiting Last Admin: 01/02/22 11:12 Dose: 5 mg Documented By: GIRMA Sertraline HCl (Sertraline Hcl 25 Mg Tablet) 25 mg PO DAILY [facility] Last Admin: 01/02/22 09:28 Dose: 25 mg Documented By: GIRMA Sertraline HCl (Sertraline Hcl 100 Mg Tablet) 100 mg PO DAILY [facility] Last Admin: 01/02/22 09:28 Dose: 100 mg Documented By: GIRMA Sodium Chloride (0.9 % Sodium Chloride Flush 3 Ml Syringe) [facility] Last Admin: 01/02/22 09:16 Dose: Not Given Documented By: GIRMA Non-Admin Reason: IV Running Torsemide (Torsemide 20 Mg Tablet) 40 mg PO DAILY [facility]; Protocol Last Admin: 01/02/22 09:28 Dose: 40 mg Documented By: GIRMA Labs CBC & Chem 7: 01/02/22 06:08 01/02/22 06:08 Labs: Laboratory Results - last 24 hr 01/01/22 01/01/22 01/01/22 15:35 15:35 15:35 MCV 94.1 MCH 31.7 MCHC 33.7 RDW 15.7 Plt Count 257 MPV 10.6 Immature Gran % (Auto) 0.5 H Neut % (Auto) 79.7 H Lymph % (Auto) 12.7 L [place] % (Auto) 3.9 Eos % (Auto) 3.2 Baso % (Auto) 0.0 Lymph # (Auto) 0.7 L [place] # (Auto) 0.2 Eos # (Auto) 0.2 Baso # (Auto) 0.0 Abs Immat Gran (auto) 0.03 Absolute Neuts (auto) 4.5 Absolute Nucleated RBC 0.000 Nucleated RBC % (auto) 0.0 PT 12.0 INR 1.0 Anion Gap Estim Creat Clear Calc Estimated GFR POC Glucose Random Glucose Lactic Acid Lactic Acid F/U @ 2Hr Calcium Magnesium Total Bilirubin Direct Bilirubin AST ALT Alkaline Phosphatase Total Protein Albumin COVID-19 (KATE) Negative COVID-19 Clin Com See Note 01/01/22 01/01/22 01/01/22 15:35 15:35 19:05 MCV MCH MCHC RDW Plt Count MPV Immature Gran % (Auto) Neut % (Auto) Lymph % (Auto) [place] % (Auto) Eos % (Auto) Baso % (Auto) Lymph # (Auto) [place] # (Auto) Eos # (Auto) Baso # (Auto) Abs Immat Gran (auto) Absolute Neuts (auto) Absolute Nucleated RBC Nucleated RBC % (auto) PT INR Anion Gap 16 Estim Creat Clear Calc 43.2 Estimated GFR 33 POC Glucose Random Glucose 225 H Lactic Acid 2.9 H* Lactic Acid F/U @ 2Hr 0.8 Calcium 9.0 Magnesium 1.5 L Total Bilirubin 0.3 Direct Bilirubin < 0.2 AST 23 ALT 23 Alkaline Phosphatase 88 Total Protein 7.1 Albumin 4.4 COVID-19 (KATE) COVID-19 Clin Com 01/02/22 01/02/22 01/02/22 06:08 06:08 11:54 MCV 96.1 MCH 32.4 MCHC 33.7 RDW 15.6 Plt Count 240 MPV 11.0 Immature Gran % (Auto) 0.3 Neut % (Auto) 72.8 Lymph % (Auto) 13.3 L [place] % (Auto) 8.4 Eos % (Auto) 5.0 H Baso % (Auto) 0.2 Lymph # (Auto) 0.8 L [place] # (Auto) 0.5 Eos # (Auto) 0.3 Baso # (Auto) 0.0 Abs Immat Gran (auto) 0.02 Absolute Neuts (auto) 4.3 Absolute Nucleated RBC 0.000 Nucleated RBC % (auto) 0.0 PT INR Anion Gap 13 Estim Creat Clear Calc 57.8 Estimated GFR 44 POC Glucose 139 H Random Glucose 166 H Lactic Acid Lactic Acid F/U @ 2Hr Calcium 8.6 Magnesium Total Bilirubin Direct Bilirubin AST ALT Alkaline Phosphatase Total Protein Albumin COVID-19 (KATE) COVID-19 Clin Com Assessment and Plan (1) Drug-induced nausea and vomiting: Status: Acute Plan 46-year-old male with past medical history multiple myeloma undergoing chemotherapy presents the hospital with intractable nausea vomiting # chemotherapy-induced nausea vomiting Has some epigastric discomfort - intractable at this time - will continue antiemetic, IV fluids - symptomatic management If symptoms does not improve we will consider GI evaluation. # acute on chronic kidney failure - secondary to dehydration - IV fluids - follow BMP # # Cardiomyopathy EF 30-35% status post AICD no acute exacerbation noted, continue all home medications outpatient follow-up with Cardiology # History of CVA/coronary artery disease - continue home meds ?# Depression -? continue sertraline, and amitriptyline DVT prophylaxis:? Heparin subQ inpatient need: Persistent nausea vomiting possibly related to Chemotherapy, MAURI Quality Stroke Does the patient have a stroke diagnosis?: No VTE Prior VTE?: No VTE Risk Level:: Medical - moderate - high VTE Device Contraindication: Treatment Not Indicated VTE Drug Contraindication: N/A - Med Ordered
[2022-01-02 15:15] VITALS: BP 136/80; PULSE 75; RESP 18; TEMP 36.4; O2SAT 96
[2022-01-02] MEDS: Pantoprazole Sodium 40 MG/10 ML VIAL IVPUSH (15:53)
[2022-01-02 17:39] LABS: Glucose, Whole Blood 132 mg/dL (60-115)
[2022-01-02 19:46] VITALS: BP 147/85; PULSE 74; RESP 20; TEMP 36.8; O2SAT 97
[2022-01-02] MEDS: Atorvastatin Calcium 80 MG TABLET PO (20:09)
[2022-01-02] MEDS: Amitriptyline HCl 25 MG TABLET PO (20:09)
[2022-01-02] MEDS: Gabapentin 300 MG CAPSULE 600 MG PO (20:09)
[2022-01-02 20:33] LABS: Glucose, Whole Blood 107 mg/dL (60-115)
[2022-01-02] MEDS: Lactated Ringers 1,000 ML 50 ML IVCONT (22:19)
[2022-01-03] VITALS (7 sets, daily range): BP systolic 103–160; BP diastolic 55–85; PULSE 66–78; RESP 16–20; TEMP 36.2–36.5; O2SAT 93–99
[2022-01-03] MEDS: HYDROmorphone HCl 0.5 MG/0.5 ML SYRINGE IVPUSH ×4 (03:10→22:03)
[2022-01-03] MEDS: Prochlorperazine Edisylate 10 MG/2 ML VIAL 5 MG IVPUSH ×3 (03:11→22:03)
[2022-01-03] MEDS: Pantoprazole Sodium 40 MG/10 ML VIAL IVPUSH ×2 (05:50→15:48)
[2022-01-03 07:29] LABS: Glucose, Whole Blood 81 mg/dL (60-115)
[2022-01-03] MEDS: Heparin Sodium,Porcine 5,000 UNIT/ML VIAL 5000 UNIT SUBCUT ×2 (09:38→21:00)
[2022-01-03] MEDS: Calcium + Vitamin D 250 MG TABLET 500 MG PO ×3 (09:38→21:00)
[2022-01-03] MEDS: Nicotine 21 MG PATCH.TD24 TRANSDERMA (09:38)
[2022-01-03] MEDS: Docusate Sodium 100 MG CAPSULE PO (09:39)
[2022-01-03] MEDS: Sertraline HCL 100 MG TABLET PO (09:39)
[2022-01-03] MEDS: Fenofibrate 160 MG TABLET PO (09:39)
[2022-01-03] MEDS: bisacodyL 5 MG TABLET.DR PO (09:39)
[2022-01-03] MEDS: Aspirin 325 MG TABLET PO (09:39)
[2022-01-03] MEDS: Clopidogrel Bisulfate 75 MG TABLET PO (09:39)
[2022-01-03] MEDS: Sertraline HCL 25 MG TABLET PO (09:39)
[2022-01-03] MEDS: Gabapentin 300 MG CAPSULE PO (09:39)
[2022-01-03] MEDS: Insulin Glargine,Hum.rec.anlog 100 UNIT/ML 10 ML VIAL 47 UNIT SUBCUT (09:40)
[2022-01-03] MEDS: Azelastine HCl Nasal 137 MCG/Spray 30 ML 2 SPRAY NOSTRIL-B (10:13)
[2022-01-03] MEDS: Lidocaine 4 % Patch ADH..PATCH 1 PATCH TRANSDERMA (10:13)
[2022-01-03] MEDS: 0.9 % Sodium Chloride Flush 3 ML SYRINGE IVFLUSH (10:13)
[2022-01-03] MEDS: carvediloL 12.5 MG TABLET PO (10:13)
[2022-01-03 11:29] LABS: Glucose, Whole Blood 119 mg/dL (60-115)
--- NOTE | 2022-01-03 11:43 | HO.PM.IMPN ---
Subjective Subjective Date of Service: 01/03/22 Interval History: nausea/vomitin Review of Systems vomiting improving but feels very nauseated, oral intake is poor. Physical Exam Vital Signs: Vital Signs: Last Vital Signs Temp 97.1 F 01/03/22 07:49 Pulse 77 01/03/22 07:49 Resp 18 01/03/22 07:49 BP 140/75 H 01/03/22 07:49 Pulse Ox 99 01/03/22 07:49 O2 Del Method 01/03/22 07:49 BMI result Body Mass Index 30.2 Appearance: Alert.? Oriented X3.?somewhat pain. cvs: rrr, [id number] , no murmur res: clear to auscultation ,no rhonchii or wheezing abd: no rebound or guarding ,epigastric discomfort, bs present. ext pulses present , no cyanosis. neuro: axo3 , nonfocal. Objective Data Active Medications Acetaminophen (Acetaminophen 325 Mg Tablet) 650 mg PO Q6H PRN PRN Reason: Pain, Mild (Pain Scale 1-3) Albuterol Sulfate (Albuterol Sulfate 90 Mcg 8 Gm Inhaler) 2 puff INHALE Q4H PRN PRN Reason: Cough Amitriptyline HCl (Amitriptyline Hcl 25 Mg Tablet) 25 mg PO BEDTIME [facility] Last Admin: 01/02/22 20:09 Dose: 25 mg Documented By: NOELLE Aspirin (Aspirin 325 Mg Tablet) 325 mg PO DAILY [facility] Last Admin: 01/03/22 09:39 Dose: 325 mg Documented By: GIRMA Atorvastatin Calcium (Atorvastatin Calcium 80 Mg Tablet) 80 mg PO BEDTIME [facility] Last Admin: 01/02/22 20:09 Dose: 80 mg Documented By: NOELLE Azelastine HCl (Azelastine Hcl Nasal 137 Mcg/[place] 30 Ml) 2 spray NOSTRIL-B BID [facility] Last Admin: 01/03/22 10:13 Dose: 2 spray Documented By: GIRMA Bisacodyl (Bisacodyl 5 Mg Tablet.) 5 mg PO DAILY [facility] Last Admin: 01/03/22 09:39 Dose: 5 mg Documented By: GIRMA Calcium Carbonate/Cholecalciferol (Calcium + Vitamin D 250 Mg Tablet) 500 mg PO TID [facility] Last Admin: 01/03/22 09:38 Dose: 500 mg Documented By: GIRMA Carvedilol (Carvedilol 12.5 Mg Tablet) 12.5 mg PO DAILY [facility]; Protocol Last Admin: 01/03/22 10:13 Dose: 12.5 mg Documented By: GIRMA Clopidogrel Bisulfate (Clopidogrel Bisulfate 75 Mg Tablet) 75 mg PO DAILY [facility] Last Admin: 01/03/22 09:39 Dose: 75 mg Documented By: GIRMA Docusate Sodium (Docusate Sodium 100 Mg Capsule) 100 mg PO BID [facility] Last Admin: 01/03/22 09:39 Dose: 100 mg Documented By: GIRMA Fenofibrate (Fenofibrate 160 Mg Tablet) 160 mg PO DAILY [facility] Last Admin: 01/03/22 09:39 Dose: 160 mg Documented By: GIRMA Gabapentin (Gabapentin 300 Mg Capsule) 600 mg PO BEDTIME [facility] Last Admin: 01/02/22 20:09 Dose: 600 mg Documented By: NOELLE Gabapentin (Gabapentin 300 Mg Capsule) 300 mg PO DAILY [facility] Last Admin: 01/03/22 09:39 Dose: 300 mg Documented By: GIRMA Heparin Sodium (Porcine) (Heparin Sodium,Porcine 5,000 Unit/Ml Vial) 5,000 unit SUBCUT Q12H [facility] Last Admin: 01/03/22 09:38 Dose: 5,000 unit Documented By: GIRMA Hydromorphone HCl (Hydromorphone Hcl 0.5 Mg/0.5 Ml Syringe) 0.5 mg IVPUSH Q4H PRN; Protocol PRN Reason: Pain, Mild (Pain Scale 1-3) Last Admin: 01/03/22 09:39 Dose: 0.5 mg Documented By: GIRMA Lactated Ringer's (Lr) 1,000 mls @ 50 mls/hr IVCONT .Q20H [facility] Last Admin: 01/02/22 22:19 Dose: 50 mls/hr Documented By: NOELLE Insulin Glargine (Insulin Glargine,Hum.Rec.Anlog 100 Unit/Ml 10 Ml Vial) 47 unit SUBCUT DAILY [facility] Last Admin: 01/03/22 09:40 Dose: 47 unit Documented By: GIRMA Insulin Human Lispro (Insulin Lispro 100 Unit/Ml 3 Ml Vial) 0 unit SUBCUT TIDAC [facility]; Protocol Last Admin: 01/03/22 07:37 Dose: Not Given Documented By: GIRMA Non-Admin Reason: No Insulin Coverage Lidocaine (Lidocaine 4 % Patch Adh..Patch) 1 patch TRANSDERMA DAILY [facility]; Protocol Last Admin: 01/03/22 10:13 Dose: 1 patch Documented By: GIRMA Loperamide HCl (Loperamide Hcl 2 Mg Capsule) 2 mg PO Q4H PRN PRN Reason: Diarrhea Nicotine (Nicotine 21 Mg Patch.Td24) 21 mg TRANSDERMA DAILY [facility] Last Admin: 01/03/22 09:38 Dose: 21 mg Documented By: GIRMA Pt Own (Lenalidomide [Revlimid] 15 Mg Capsule) 15 mg PO DAILY@1700 [facility] Last Admin: 01/02/22 16:40 Dose: 15 mg Documented By: GIRMA Pantoprazole Sodium (Pantoprazole Sodium 40 Mg/10 Ml Vial) 40 mg IVPUSH BID@0630,1630 [facility] Last Admin: 01/03/22 05:50 Dose: 40 mg Documented By: NOELLE Pharmacy Consult (Consult Rx Perform Med Rec) 1 each MISCELLANE ONCE PRN PRN Reason: Consult order Prochlorperazine Edisylate (Prochlorperazine Edisylate 10 Mg/2 Ml Vial) 5 mg IVPUSH Q6H PRN PRN Reason: Nausea and Vomiting Last Admin: 01/03/22 03:11 Dose: 5 mg Documented By: NOELLE Sertraline HCl (Sertraline Hcl 25 Mg Tablet) 25 mg PO DAILY [facility] Last Admin: 01/03/22 09:39 Dose: 25 mg Documented By: GIRMA Sertraline HCl (Sertraline Hcl 100 Mg Tablet) 100 mg PO DAILY [facility] Last Admin: 01/03/22 09:39 Dose: 100 mg Documented By: GIRMA Sodium Chloride (0.9 % Sodium Chloride Flush 3 Ml Syringe) 3 ml IVFLUSH QSHIFT [facility] Last Admin: 01/03/22 10:13 Dose: 3 ml Documented By: GIRMA Torsemide (Torsemide 20 Mg Tablet) 40 mg PO DAILY [facility]; Protocol Last Admin: 01/02/22 09:28 Dose: 40 mg Documented By: GIRMA Labs CBC & Chem 7: 01/02/22 06:08 01/02/22 06:08 Labs: Laboratory Results - last 24 hr 01/02/22 01/02/22 01/02/22 11:54 17:35 19:54 POC Glucose 139 H 132 H 107 01/03/22 01/03/22 07:10 11:05 POC Glucose 81 119 H Microbiology Microbiology Results: Microbiology 01/01/22 17:03 Blood Culture - Preliminary Blood - Venous No growth after 24 hours. 01/01/22 15:35 Blood Culture - Preliminary Blood - Venous No growth after 24 hours. Assessment and Plan (1) Drug-induced nausea and vomiting: Status: Acute Plan 46-year-old male with past medical history multiple myeloma undergoing chemotherapy presents the hospital with intractable nausea vomiting # chemotherapy-induced nausea vomiting Has some epigastric discomfort - intractable at this time - will continue antiemetic, IV fluids - symptomatic management If symptoms does not improve we will consider GI evaluation. # acute on chronic kidney failure - secondary to dehydration - IV fluids - follow BMP # # Cardiomyopathy EF 30-35% status post AICD no acute exacerbation noted, continue all home medications outpatient follow-up with Cardiology # History of CVA/coronary artery disease - continue home meds ?# Depression -? continue sertraline, and amitriptyline DVT prophylaxis:? Heparin subQ inpatient need:? Persistent nausea vomiting possibly related to Chemotherapy, MAURI Quality Stroke Does the patient have a stroke diagnosis?: No VTE Prior VTE?: No VTE Risk Level:: Medical - moderate - high VTE Device Contraindication: Treatment Not Indicated VTE Drug Contraindication: N/A - Med Ordered
--- NOTE | 2022-01-03 13:23 | MHC.CM.PN ---
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 D/C PLAN: HOME NO SERVICES W/FAMILY FOR TRANSPORT
[2022-01-03 17:26] LABS: Glucose, Whole Blood 145 mg/dL (60-115)
[2022-01-03] MEDS: Loperamide HCl 2 MG CAPSULE PO (19:35)
[2022-01-03 19:41] LABS: Glucose, Whole Blood 198 mg/dL (60-115)
[2022-01-03] MEDS: Amitriptyline HCl 25 MG TABLET PO (21:00)
[2022-01-03] MEDS: Atorvastatin Calcium 80 MG TABLET PO (21:00)
[2022-01-03] MEDS: Gabapentin 300 MG CAPSULE 600 MG PO (21:00)
[2022-01-03] MEDS: Lactated Ringers 1,000 ML 50 ML IVCONT (23:58)
[2022-01-04] MEDS: HYDROmorphone HCl 0.5 MG/0.5 ML SYRINGE IVPUSH ×2 (03:37→08:17)
[2022-01-04 04:00] VITALS: BP 144/82; PULSE 72; RESP 14; TEMP 36.3; O2SAT 100
[2022-01-04] MEDS: Pantoprazole Sodium 40 MG/10 ML VIAL IVPUSH (06:07)
[2022-01-04 06:44] LABS: Anion Gap 10 (12-20); Blood Urea Nitrogen 9 mg/dL (9-16); Calcium 8.7 mg/dL (8.4-10.2); Carbon Dioxide 26 mmol/L (22-29); Chloride 107 mmol/L (96-108); Creatinine Clr Calc Pharmacy 79.1; Estimated Glomerular Filt Rate > 60; Glucose Random 131 mg/dL (60-115); Potassium 4.1 mmol/L (3.3-5.1); Sodium 139 mmol/L (135-145)
[2022-01-04 07:34] VITALS: BP 144/80; PULSE 68; RESP 18; TEMP 36.3; O2SAT 97
[2022-01-04 07:50] LABS: Glucose, Whole Blood 116 mg/dL (60-115)
[2022-01-04] MEDS: Prochlorperazine Edisylate 10 MG/2 ML VIAL 5 MG IVPUSH (08:16)
--- NOTE | 2022-01-04 09:58 | PM.DS ---
DS: Providers Provider Date of Service: 01/04/22 Date of admission: 01/01/22 21:39 Primary care physician: Guido Burch III, MD DS: Diagnosis Discharge Diagnosis (1) Drug-induced nausea and vomiting: Status: Acute DS: Summary Hospital Course Hospital Course: 46-year-old female with recent diagnosis multiple myeloma on chemotherapy, diabetes, CAD, CMP status post AICD, CKD, CVA among others who presents to the hospital with complaints of intractable nausea vomiting.? Patient underwent chemotherapy on Tuesday and according to the at bedside this occurs almost after every chemotherapy treatment where he becomes nauseous, has intractable vomiting and abdominal pain as well as diarrhea.? Patient is very uncomfortable, his moaning, opens his eyes answers questions appropriately but mostly goes back to sleep and starts moaning and whining.? Patient reports he has pain all over his body, reports that speaks a Ismael we were sent his shoulders and legs.? reports multiple episodes of diarrhea, nonbloody.? Reports that also have is after chemotherapy On arrival to the ED hemodynamically stable with no significant abnormal vitals Labs are significant for hemoglobin 9.1, hematocrit 27.0, BUN of 17, creatinine of 2.16 which is increased from his most recent, lactic acid of 2.9, magnesium of 1.5, ?KUB negative Patient received multiple rounds of antiemetics with no relief, patient will be admitted for intractable nausea vomiting. Hopsital course: Patient came to the hospital because of intractable nausea vomiting which seems to be improved with hydration and holding diuretics, received supportive care with antiemetic, patient is eating better and going home with dexamethasone. MAURI: Resolved with hydration, resume home dose of diuretics. Monitor BMP electrolytes outpatient. Further management as per PCP and Oncology outpatient. Above management discussed with the patient in detail length he understand and in agreement with the above plan, time spent 50 minutes and 50% time spent on counseling. Significant findings: As above. Procedures performed: None. Treatment and response: As above. Complications: None. Time Spent with Patient Time attestation: Total time spent providing and/or coordinating discharge services: Discharge coordination time: Greater than 30 minutes Quality: Safe Use of Opioids Does Pt have an Active Cancer Diagnosis on the Problem List?: No Quality: Stroke Does the patient have a stroke diagnosis?: No Physical Exam Vital Signs: Vital Signs: Last Vital Signs Temp 97.4 F 01/04/22 07:34 Pulse 68 01/04/22 07:34 Resp 18 01/04/22 07:34 BP 144/80 H 01/04/22 07:34 Pulse Ox 97 01/04/22 07:34 O2 Del Method 01/04/22 07:34 BMI result Body Mass Index 30.2 ?Appearance: Alert.? Oriented X3.?somewhat pain. cvs: rrr, [id number] , no murmur res: clear to auscultation ,no rhonchii or wheezing abd: no rebound or guarding,nt, bs present. ext pulses present , no cyanosis. neuro: axo3 , nonfocal. DS: Data Data Completed and Pending Completed studies during hospitalization [Text1]: Procedures Transfusion of Nonautologous Red Blood Cells into Peripheral Vein, Percutaneous Approach (11/27/21) Labs on day of discharge: Laboratory Results - last 24 hr 01/03/22 01/03/22 01/03/22 11:05 15:17 19:28 Sodium Potassium Chloride Carbon Dioxide Anion Gap BUN Creatinine Estim Creat Clear Calc Estimated GFR POC Glucose 119 H 145 H 198 H Random Glucose Calcium 01/04/22 01/04/22 05:39 07:37 Sodium 139 Potassium 4.1 Chloride 107 Carbon Dioxide 26 Anion Gap 10 L BUN 9 Creatinine 1.22 Estim Creat Clear Calc 79.1 Estimated GFR > 60 POC Glucose 116 H Random Glucose 131 H Calcium 8.7 Preliminary micro results at discharge 01/01/22 17:03 Blood Culture - Preliminary Blood - Venous No growth after 48 hours. 01/01/22 15:35 Blood Culture - Preliminary Blood - Venous No growth after 48 hours. Additional Comments Additional comments: XR/XR KUB IMPRESSION: Nonobstructive bowel gas pattern. No significant stool burden. Discharge Plan Discharge Patient Disposition: Home, Self-Care Discharge Diagnosis: Intractable nausea vomiting possible related to chemo Referrals: Guido Burch III, MD [Primary Care Provider] - 1 Week Discharge Medications: New dexamethasone 4 mg tablet 4 mg PO BID Qty: 6 0RF Continued sertraline 100 mg tablet 100 mg PO DAILY Rx Instructions: one 25 mg tab + one 100 mg tab = 125 mg daily dose calcium carbonate-vitamin D3 [Calcium 500 + D] 500 mg-10 mcg (400 unit) Tablet 1 tab PO TID Qty: 90 4RF gabapentin 300 mg Capsule 600 mg PO BEDTIME azelastine 137 mcg (0.1 %) Aerosol,[place] 2 spray INTRANASAL BID insulin lispro [Humalog KwikPen Insulin] 100 unit/mL Insulin Pen 10 - 18 unit SUBCUT TID (DME) pen needle, diabetic [BD Ultra-Fine Short Pen Needle] 31 gauge x 5/16 needle subcut QID fenofibrate nanocrystallized 145 mg tablet 1 tab PO DAILY torsemide 20 mg tablet 40 mg PO DAILY Qty: 30 0RF loperamide 2 mg Capsule 2 mg PO Q4H PRN (Reason: Diarrhea) Qty: 30 0RF lenalidomide [Revlimid] 15 mg Capsule 15 mg PO DAILY Qty: 21 4RF Rx Instructions: Take on D1-14 of 21D Velcade Schedule, swallow whole with glass of water; do not open, crush, chew , break, or dissolve aspirin 325 mg tablet 1 tab PO DAILY carvedilol 12.5 mg tablet 12.5 mg PO DAILY clopidogrel 75 mg tablet 75 mg PO DAILY atorvastatin 80 mg tablet 80 mg PO BEDTIME albuterol sulfate 90 mcg/actuation HFA aerosol inhaler 2 puff inhalation Q4H PRN (Reason: Cough) pantoprazole 40 mg tablet,delayed release (DR/EC) 40 mg PO DAILY sertraline 25 mg tablet 25 mg PO DAILY Rx Instructions: one 25 mg tab + one 100 mg tab = 125 mg daily dose amitriptyline 25 mg tablet 25 mg PO BEDTIME gabapentin [Neurontin] 300 mg capsule 300 mg PO DAILY Lantus Solostar U-100 Insulin 100 unit/mL (3 mL) insulin pen 47 unit subcut QAM nicotine 21 mg/24 hr patch 24 hour 1 patch topical DAILY (DME) FreeStyle [place] 14 Day Sensor Kit See Rx Instructions topical Q2W Qty: 1 Rx Instructions: As directed Discharge Orders: Discharge Order (Routine); Ordered 01/04/22 Ordered By: Louis Self Diet: Advance to usual diet Activity on Discharge: As tolerated Stand Alone Forms: Patient Portal Discharge page Care Plan Goals: Patient came to the hospital because of intractable nausea vomiting which seems to be improved with hydration and holding diuretics, received supportive care with antiemetic, patient is eating better and going home with dexamethasone. MAURI: Resolved with hydration, resume home dose of diuretics. Monitor BMP electrolytes outpatient. Further management as per PCP and Oncology outpatient. Health Concerns: As above. Plan of Treatment: As above. Assessment: As above.
[2022-01-04] MEDS: Clopidogrel Bisulfate 75 MG TABLET PO (10:58)
[2022-01-04] MEDS: Loperamide HCl 2 MG CAPSULE PO (10:58)
[2022-01-04] MEDS: Gabapentin 300 MG CAPSULE PO (10:58)
[2022-01-04] MEDS: Calcium + Vitamin D 250 MG TABLET 500 MG PO (10:58)
[2022-01-04] MEDS: carvediloL 12.5 MG TABLET PO (10:58)
[2022-01-04] MEDS: Sertraline HCL 100 MG TABLET PO (10:58)
[2022-01-04] MEDS: Sertraline HCL 25 MG TABLET PO (10:58)
[2022-01-04] MEDS: Fenofibrate 160 MG TABLET PO (10:58)
[2022-01-04] MEDS: Aspirin 325 MG TABLET PO (10:59)
[2022-01-04] MEDS: Azelastine HCl Nasal 137 MCG/Spray 30 ML 2 SPRAY NOSTRIL-B (11:01)
[2022-01-04 11:27] VITALS: BP 121/73; PULSE 67; RESP 18; TEMP 36.5; O2SAT 98
[2022-01-04 11:48] LABS: Glucose, Whole Blood 218 mg/dL (60-115)
== END 2022-01-04 13:31 | disposition home or self-care (01) ==
LOC: HO.ED 19:30 → HO.EDOVER 21:59 → HO.S3 01-02 03:25
PROVIDERS: Nurse Practitioner Family; Admitting Provider Internal Medicine; Emergency Provider Emergency Medicine Emergency Medical Services; PCP Internal Medicine; Visit Provider Internal Medicine
DX: R11.2 Nausea with vomiting, unspecified (principal); T50.905A Adverse effect of unspecified drugs, medicaments and biological substances, initial encounter; Y92.039 Unspecified place in apartment as the place of occurrence of the external cause; E11.22 Type 2 diabetes mellitus with diabetic chronic kidney disease; I13.0 Hypertensive heart and chronic kidney disease with heart failure and stage 1 through stage 4 chronic kidney disease, or unspecified chronic kidney disease; N18.9 Chronic kidney disease, unspecified; I50.9 Heart failure, unspecified; N17.9 Acute kidney failure, unspecified; R10.9 Unspecified abdominal pain; R19.7 Diarrhea, unspecified; E78.5 Hyperlipidemia, unspecified; F12.90 Cannabis use, unspecified, uncomplicated; C90.00 Multiple myeloma not having achieved remission; Z20.822 Contact with and (suspected) exposure to COVID-19; Z92.21 Personal history of antineoplastic chemotherapy; Z86.73 Personal history of transient ischemic attack (TIA), and cerebral infarction without residual deficits; Z87.891 Personal history of nicotine dependence; Z95.810 Presence of automatic (implantable) cardiac defibrillator; Z79.4 Long term (current) use of insulin; Z79.02 Long term (current) use of antithrombotics/antiplatelets; Z79.82 Long term (current) use of aspirin; Z79.899 Other long term (current) drug therapy
CPT/HCPCS: 36415; 74018; 80048; 80076; 82947; 83605; 83735; 85025; 85610; 87040; 87635; 93005; 96361; 96365; 96366; 96372; 96375; 96376; 99218; 99285; J1170; J1200; J2060; J2270; J2550; J2765; J3475

== ENCOUNTER 2022-02-21 17:09 | Inpatient (IN) | payer OTHER, SELFPAY ==
--- NOTE | ~2022-02-21 | XR_ITS ---
EXAMINATION: XR CHEST CLINICAL INFORMATION: Chest pain, weakness COMPARISON: 12/15/2021 TECHNIQUE: Frontal view of the chest was obtained. FINDINGS: Streaky opacity in the retrocardiac left base. Right lung and pleural spaces are clear. Left-sided pacer/AICD, unchanged. Sternal wires. Regional skeleton intact. XR/XR chest 1V IMPRESSION: Streaky opacity in the retrocardiac left lung base favors atelectasis over aspiration or pneumonia.
--- NOTE | ~2022-02-21 | CT_ITS ---
EXAMINATION: CT ABDOMEN AND PELVIS WITHOUT CONTRAST CLINICAL INFORMATION: Pain COMPARISON: 12/15/2021 TECHNIQUE: Multidetector volumetric imaging was performed from the superior aspect of the liver through the pubic symphysis. Sagittal and coronal reformatted images were obtained on the technologist's workstation. This CT examination was performed using dose optimization techniques as appropriate, variously including the following: *Automated exposure control *Adjustment of mA and/or kV according to patient size (this includes techniques or standardized protocols for targeted exams where dose is matched to indication/reason for exam; i.e. extremities or head) *Use of iterative reconstruction technique DLP: 628 mGy-cm FINDINGS: LUNG BASES: Left basilar atelectasis. This may be rounded atelectasis. Borderline prominent heart. Coronary artery calcifications.. LIVER, GALLBLADDER, AND BILIARY TREE: The liver is normal in size and shape with decreased attenuation. No focal hepatic lesion or biliary ductal dilatation is present. Cholecystectomy. PANCREAS: Unremarkable. SPLEEN: Unremarkable. ADRENAL GLANDS: Unremarkable. KIDNEYS AND URETERS: The kidneys are normal in size, shape, and attenuation. No hydronephrosis, hydroureter, or calculi seen. No perinephric stranding. BLADDER: Unremarkable. GASTROINTESTINAL TRACT: The stomach is unremarkable. Normal caliber small bowel. No obstruction. Normal appendix. No colonic wall thickening or inflammatory change. No free air or free fluid. ABDOMINAL WALL: No significant hernia is appreciated. Subcutaneous injection sites likely present. Radiopaque generator device in the left flank soft tissues. LYMPH NODES: Normal. VASCULAR: Normal caliber aorta with mild to moderate atherosclerotic calcification. PELVIC VISCERA: The prostate and seminal vesicles are unremarkable. OSSEOUS STRUCTURES: No acute or suspicious osseous abnormality. Status post median sternotomy. CT/CT abdomen pelvis wo con IMPRESSION: No acute finding in the abdomen or pelvis. No inflammatory changes. Hepatic steatosis. Chronic changes at the left lung base suggestive of rounded atelectasis. Fleischner guidelines were followed.
[2022-02-21 17:27] LABS: Glucose, Whole Blood 121 mg/dL (60-115)
--- NOTE | 2022-02-21 17:30 | ECG_ITS ---
Test Reason : WEAKNESS Blood Pressure : / mmHG Vent. Rate : 057 BPM Atrial Rate : 057 BPM P-R Int : 190 ms QRS Dur : 080 ms QT Int : 492 ms P-R-T Axes : 044 -09 101 degrees QTc Int : 478 ms Sinus bradycardia Minimal voltage criteria for LVH, may be normal variant ( R in aVL ) Inferior infarct (cited on or before 30-AUG-2021) Abnormal ECG When compared with ECG of 01-JAN-2022 15:04, Vent. rate has decreased BY 28 BPM Referred By: Oliva Briones Electronically Signed By:ESTEPHANIA PRITCHARD
--- NOTE | 2022-02-21 17:34 | ED_ITS ---
HPI - General Adult General Chief complaint: General Medical Stated complaint: hyploglycemia Time Seen by Provider: 02/21/22 17:29 Source: patient, family (Spouse), EMS and certified court/medical interpreter Mode of arrival: EMS Limitations: no limitations History of Present Illness HPI narrative: 46-year-old male Irish-speaking came in for evaluation after episode of hypoglycemia. Past medical history is significant for HTN, HLD, DM insulin-dependent, CAD, 2 vessel CABG, ischemic CMP, subcu ICD, systolic heart failure. On chemotherapy for MM Patient takes Lantus and Humalog, patient is receiving chemotherapy for MM chemotherapy was held for the past 2 month because patient could not tolerate it.. Patient was found with decreased responsiveness found by his to have a low sugar gave him orange juice and spread the sugar on his lips and his blood sugar at home sugar remained low, on EMS arrival patient was awake and alert able to have conversation his blood sugar was 47. stated that his medication has been adjusted they discontinue gabapentin and amitriptyline and replaced it with another new medication and patient since then been having the generalized weakness. Patient feels decreased p.o. and fluid intake. Related Data Home Medications Medication Instructions Recorded Confirmed albuterol sulfate 90 mcg/actuation 2 puff inhalation Q4H PRN Cough 04/25/20 01/01/22 aerosol inhaler amitriptyline 25 mg tablet 25 mg PO BEDTIME 04/25/20 02/21/22 atorvastatin 80 mg tablet 80 mg PO BEDTIME 04/25/20 02/21/22 clopidogrel 75 mg tablet 75 mg PO DAILY 04/25/20 02/21/22 gabapentin 300 mg capsule 300 mg PO DAILY 04/25/20 01/01/22 (Neurontin) insulin glargine 100 unit/mL (3 47 unit subcut QAM 04/25/20 01/01/22 mL) subcutaneous pen (Lantus Solostar U-100 Insulin) pantoprazole 40 mg tablet,delayed 40 mg PO DAILY 04/25/20 02/21/22 release sertraline 25 mg tablet 25 mg PO DAILY 04/25/20 02/21/22 azelastine 137 mcg (0.1 %) nasal 2 spray intranasal BID 02/04/21 01/01/22 spray aerosol fenofibrate nanocrystallized 145 1 tab PO DAILY 02/04/21 02/21/22 mg tablet gabapentin 300 mg capsule 600 mg PO BEDTIME 02/04/21 01/01/22 insulin lispro 100 unit/mL 10 - 18 unit subcut TID 02/04/21 01/01/22 subcutaneous pen (Humalog KwikPen (U-100) Insulin) pen needle, diabetic 31 gauge x 02/04/21 12/16/21 5/16 (BD Ultra-Fine Short Pen Needle) sertraline 100 mg tablet 100 mg PO DAILY 05/25/21 02/21/22 flash glucose sensor (FreeStyle #1 ea 11/06/21 12/16/21 [place] 14 Day Sensor kit) aspirin 325 mg tablet 1 tab PO DAILY 11/27/21 02/21/22 carvedilol 12.5 mg tablet 12.5 mg PO DAILY 11/27/21 02/21/22 nicotine 21 mg/24 hr daily 1 patch topical DAILY 12/31/21 01/01/22 transdermal patch Previous Rx's Medication Instructions Recorded loperamide 2 mg capsule 2 mg PO Q4H PRN Diarrhea #30 caps 09/01/21 lenalidomide 15 mg capsule 15 mg PO DAILY #21 caps 11/05/21 (Revlimid) dexamethasone 4 mg tablet 4 mg PO BID #6 tabs 01/04/22 calcium carbonate 500 mg-vitamin 1 tab PO TID #90 tabs 02/03/22 D3 10 mcg (400 unit) tablet (Calcium 500 + D) torsemide 20 mg tablet 40 mg PO DAILY #60 tabs 02/03/22 Allergies Allergy/AdvReac Type Severity Reaction Status Date / Time egg [EGG] Allergy Severe NAUSEA, Verified 12/31/21 09:25 ITCHY THROAT meperidine [From DEMEROL] Allergy Unknown AGITATION Verified 12/31/21 09:25 Review of Systems Review of Systems: All other systems are reviewed and are negative Constitutional: Reports as per HPI and Reports no additional constitutional complaints Eyes: Reports as per HPI and Reports no additional eye complaints Reports system reviewed and no additional complaints, except as documented Cardiovascular: Reports as per HPI and Reports no additional cardiovascular complaints Respiratory: Reports as per HPI and Reports no additional respiratory complaints Gastrointestinal: Reports as per HPI and Reports no additional gastrointestinal complaints Genitourinary: Reports no additional female genitourinary complaints Musculoskeletal: Reports no additional musculoskeletal complaints Skin/Breast: Reports system reviewed and no additional complaints, except as docu Psychiatric: Reports no additional psychiatric complaints Endocrine: Reports no additional endocrine complaints Hematologic/Lymphatic: Reports no additional hematologic/lymphatic complaints Allergic/Immunologic: Reports no additional allergic/immunologic complaints Reports system reviewed and no additional complaints, except as documented and Reports Abnormal speech present [facility] Past Medical History Medical History Bladder pain CAD (coronary artery disease) CKD (chronic kidney disease) CVA (cerebral vascular accident) Diabetes mellitus HLD (hyperlipidemia) HTN (hypertension) ICD (implantable cardioverter-defibrillator) in place Ischemic cardiomyopathy Monoclonal gammopathy Multiple myeloma Multiple myeloma Surgical History Hx of cardiac cath (~2017) S/P CABG x 2 (~02/2019) Family History Family History Father Diabetes mellitus Esophageal cancer Mother Diabetes mellitus Brother Diabetes mellitus Sister Diabetes mellitus Social History Social History Household Members: Family Housing: Apartment Do you presently have visiting nurse or other home services: No Alcohol intake: never Patient Tobacco Use Status: Never used Tobacco Tobacco use type: Cigarette Substance Use Type: Marijuana Advance Directives: Yes Advance Directives on File: Yes Advance Directives Date on File: 08/31/21 service: No Current occupational status: disabled Physical Exam ED Vital Signs: Vital Signs - 24 hr 02/21/22 17:53 02/21/22 18:06 Temperature 97.4 F 97.4 F Pulse Rate 58 59 Respiratory Rate 20 20 Blood Pressure 122/67 122/76 Pulse Oximetry 98 100 Oxygen Delivery Method Room Air Room Air BMI result Body Mass Index 26.6 Vital signs have been reviewed as appeared to be correct. Blood pressure normal. Heart rate normal. Respiration rate normal. Temperature normal. Oxygen saturation normal. Appearance: Alert. Oriented X3. No acute distress. Head: Normal external exam. Normocephalic. Atraumatic. No Couch signs noted. No raccoon eyes noted Eyes: PERRLA. EOMI. Conjunctiva and sclera normal. Eyelids normal. ENT: TM's Normal. Pharynx normal. Uvula midline. Moist mucous membranes. No trismus noted. No drooling noted. No muffled voice noted. Neck: Normal inspection. Neck supple. FROM. No adenopathy. Thyroid Normal. No meningeal signs. No neck mass noted. CVS: Normal heart rate and rhythm. Heart sound normal. No murmurs noted. Pulses normal throughout. Respiratory: No respiratory distress. Painless inspiration. Breath sounds normal. No wheezes/rales/rhonchi noted. Chest nontender. No accessory muscle usage noted or decreased air movement noted. Abdomen: Soft and nontender. Bowel sounds normal in all 4 quadrants. No distention noted. No organomegaly noted. No visible injury noted. Back: No CVA tenderness. Full range of motion noted. Skin: Skin warm and dry. Normal skin color. Normal skin turgor. No rashes/lesions/lacerations noted. Extremities: No lower extremity edema. Extremities exhibit normal range of motion. Extremities nontender. Neuro: Oriented X 3. Cranial nerve exam: II-XII are grossly intact No motor deficit. No sensory deficit. Reflexes normal. Course Course Course Narrative: 46-year-old male with multiple comorbidity including insulin-dependent diabetes came in initially for hypoglycemia patient took his insulin without eating patient has been complaining of nausea and chronic body ache, labs showed acute on chronic renal failure and pancreatitis. X-ray concerning of retrocardiac atelectasis, patient has no fever, no SIRS criteria, no coughing. Will admit the patient for IV hydration continuous monitoring of blood glucose. Medical Decision Making Lab Data Lab results reviewed: Yes I reviewed the patient's lab results. Result diagrams: 02/21/22 17:42 02/21/22 22:05 Labs: Lab Results 02/21/22 02/21/22 02/21/22 Range/Units 17:24 17:42 17:42 WBC 9.6 (4.8-10.8) X10*3/uL RBC 3.99 L D (4.60-5.80) X10*6/uL Hgb 12.2 L D (14.0-18.0) g/dl Hct 37.1 L D (42.0-52.0) % MCV 93.0 (80.0-98.0) fL MCH 30.6 (27.0-33.0) pg MCHC 32.9 (31.0-36.0) g/dl RDW 13.7 (11.0-16.0) % Plt Count 368 (160-400) X10*3/uL MPV 10.2 (9.4-12.4) fL Immature Gran % (Auto) 0.2 (0.0-0.4) % Neut % (Auto) 68.5 (45-73) % Lymph % (Auto) 19.9 L (20-40) % [place] % (Auto) 8.8 (2-11) % Eos % (Auto) 2.2 (0-4) % Baso % (Auto) 0.4 (0-2) % Lymph # (Auto) 1.9 (1.2-4.9) X10*3/uL [place] # (Auto) 0.8 (0.1-1.2) X10*3/uL Eos # (Auto) 0.2 (0.0-0.4) X10*3/uL Baso # (Auto) 0.0 (0.0-0.2) X10*3/uL Abs Immat Gran (auto) 0.02 (0.00-0.03) X10*3/uL Absolute Neuts (auto) 6.6 (2.0-8.3) x10*3/uL Absolute Nucleated RBC 0.000 (0.0-0.012) X10*3/uL Nucleated RBC % (auto) 0.0 (0.0-0.2) /100WBC Sodium (135-145) mmol/L Potassium (3.3-5.1) mmol/L Chloride (96-108) mmol/L Carbon Dioxide (22-29) mmol/L Anion Gap (12-20) BUN (9-16) mg/dL Creatinine (0.5-1.4) mg/dL Estim Creat Clear Calc Estimated GFR POC Glucose 121 H (60-115) mg/dL Random Glucose (60-115) mg/dL Calcium (8.4-10.2) mg/dL Total Bilirubin (0.0-1.0) mg/dL Direct Bilirubin (0.0-0.5) mg/dL AST (5-37) U/L ALT (0-40) U/L Alkaline Phosphatase (39-117) U/L Troponin I High Sens 6.3 D (<3.5-35.0) ng/L B-Natriuretic Peptide 78 (<100) pg/mL Total Protein (6.5-8.0) g/dL Albumin (3.5-5.0) g/dL Lipase (8-78) U/L Urine Color Urine Appearance Urine pH (5.0-8.0) Ur Specific [place] (1.005-1.025) Urine Protein (Neg-Trace) mg/dL Urine Glucose (UA) (Negative) mg/dL Urine Ketones (Negative) mg/dL Urine Blood (Negative) Urine Nitrite (Negative) Ur Leukocyte Esterase (Negative) COVID-19 ([facility]) (Negative) COVID-19 Clin Com 02/21/22 02/21/22 02/21/22 Range/Units 17:42 18:16 20:23 WBC (4.8-10.8) X10*3/uL RBC (4.60-5.80) X10*6/uL Hgb (14.0-18.0) g/dl Hct (42.0-52.0) % MCV (80.0-98.0) fL MCH (27.0-33.0) pg MCHC (31.0-36.0) g/dl RDW (11.0-16.0) % Plt Count (160-400) X10*3/uL MPV (9.4-12.4) fL Immature Gran % (Auto) (0.0-0.4) % Neut % (Auto) (45-73) % Lymph % (Auto) (20-40) % [place] % (Auto) (2-11) % Eos % (Auto) (0-4) % Baso % (Auto) (0-2) % Lymph # (Auto) (1.2-4.9) X10*3/uL [place] # (Auto) (0.1-1.2) X10*3/uL Eos # (Auto) (0.0-0.4) X10*3/uL Baso # (Auto) (0.0-0.2) X10*3/uL Abs Immat Gran (auto) (0.00-0.03) X10*3/uL Absolute Neuts (auto) (2.0-8.3) x10*3/uL Absolute Nucleated RBC (0.0-0.012) X10*3/uL Nucleated RBC % (auto) (0.0-0.2) /100WBC Sodium (135-145) mmol/L Potassium (3.3-5.1) mmol/L Chloride (96-108) mmol/L Carbon Dioxide (22-29) mmol/L Anion Gap (12-20) BUN (9-16) mg/dL Creatinine (0.5-1.4) mg/dL Estim Creat Clear Calc Estimated GFR POC Glucose 144 H (60-115) mg/dL Random Glucose (60-115) mg/dL Calcium (8.4-10.2) mg/dL Total Bilirubin (0.0-1.0) mg/dL Direct Bilirubin (0.0-0.5) mg/dL AST (5-37) U/L ALT (0-40) U/L Alkaline Phosphatase (39-117) U/L Troponin I High Sens (<3.5-35.0) ng/L B-Natriuretic Peptide (<100) pg/mL Total Protein (6.5-8.0) g/dL Albumin (3.5-5.0) g/dL Lipase (8-78) U/L Urine Color Yellow Urine Appearance Clear Urine pH 5.0 (5.0-8.0) Ur Specific [place] 1.010 (1.005-1.025) Urine Protein Negative (Neg-Trace) mg/dL Urine Glucose (UA) Negative (Negative) mg/dL Urine Ketones Negative (Negative) mg/dL Urine Blood Negative (Negative) Urine Nitrite Negative (Negative) Ur Leukocyte Esterase Negative (Negative) COVID-19 ([facility]) Negative (Negative) COVID-19 Clin Com See Note 02/21/22 Range/Units 22:05 WBC (4.8-10.8) X10*3/uL RBC (4.60-5.80) X10*6/uL Hgb (14.0-18.0) g/dl Hct (42.0-52.0) % MCV (80.0-98.0) fL MCH (27.0-33.0) pg MCHC (31.0-36.0) g/dl RDW (11.0-16.0) % Plt Count (160-400) X10*3/uL MPV (9.4-12.4) fL Immature Gran % (Auto) (0.0-0.4) % Neut % (Auto) (45-73) % Lymph % (Auto) (20-40) % [place] % (Auto) (2-11) % Eos % (Auto) (0-4) % Baso % (Auto) (0-2) % Lymph # (Auto) (1.2-4.9) X10*3/uL [place] # (Auto) (0.1-1.2) X10*3/uL Eos # (Auto) (0.0-0.4) X10*3/uL Baso # (Auto) (0.0-0.2) X10*3/uL Abs Immat Gran (auto) (0.00-0.03) X10*3/uL Absolute Neuts (auto) (2.0-8.3) x10*3/uL Absolute Nucleated RBC (0.0-0.012) X10*3/uL Nucleated RBC % (auto) (0.0-0.2) /100WBC Sodium 138 (135-145) mmol/L Potassium 4.2 (3.3-5.1) mmol/L Chloride 101 (96-108) mmol/L Carbon Dioxide 25 (22-29) mmol/L Anion Gap 16 (12-20) BUN 26 H D (9-16) mg/dL Creatinine 2.28 H (0.5-1.4) mg/dL Estim Creat Clear Calc 38.7 Estimated GFR 31 POC Glucose (60-115) mg/dL Random Glucose 124 H (60-115) mg/dL Calcium 9.1 D (8.4-10.2) mg/dL Total Bilirubin 0.3 (0.0-1.0) mg/dL Direct Bilirubin < 0.2 (0.0-0.5) mg/dL AST 28 (5-37) U/L ALT 15 (0-40) U/L Alkaline Phosphatase 62 D (39-117) U/L Troponin I High Sens (<3.5-35.0) ng/L B-Natriuretic Peptide (<100) pg/mL Total Protein 7.6 (6.5-8.0) g/dL Albumin 4.7 (3.5-5.0) g/dL Lipase 303 H (8-78) U/L Urine Color Urine Appearance Urine pH (5.0-8.0) Ur Specific [place] (1.005-1.025) Urine Protein (Neg-Trace) mg/dL Urine Glucose (UA) (Negative) mg/dL Urine Ketones (Negative) mg/dL Urine Blood (Negative) Urine Nitrite (Negative) Ur Leukocyte Esterase (Negative) COVID-19 ([facility]) (Negative) COVID-19 Clin Com Imaging Data Chest x-ray: Attestation: I personally reviewed and interpreted this imaging study as follows: Radiologist's impression: Streaky opacity in the retrocardiac left lung base favors atelectasis over aspiration or pneumonia. ? Discharge Plan Discharge Clinical Impression: Hypoglycemia, Acute on chronic kidney failure, Acute pancreatitis Patient Disposition: Admitted As Inpatient Prescriptions: No Action torsemide 20 mg tablet 40 mg PO DAILY Qty: 60 1RF sertraline 100 mg tablet 100 mg PO DAILY Rx Instructions: one 25 mg tab + one 100 mg tab = 125 mg daily dose calcium carbonate-vitamin D3 [Calcium 500 + D] 500 mg-10 mcg (400 unit) Tablet 1 tab PO TID Qty: 90 4RF gabapentin 300 mg Capsule 600 mg PO BEDTIME azelastine 137 mcg (0.1 %) Aerosol,[place] 2 spray INTRANASAL BID insulin lispro [Humalog KwikPen Insulin] 100 unit/mL Insulin Pen 10 - 18 unit SUBCUT TID (DME) pen needle, diabetic [BD Ultra-Fine Short Pen Needle] 31 gauge x 5/16 needle subcut QID fenofibrate nanocrystallized 145 mg tablet 1 tab PO DAILY dexamethasone 4 mg tablet 4 mg PO BID Qty: 6 0RF loperamide 2 mg Capsule 2 mg PO Q4H PRN (Reason: Diarrhea) Qty: 30 0RF lenalidomide [Revlimid] 15 mg Capsule 15 mg PO DAILY Qty: 21 4RF Rx Instructions: Take on D1-14 of 21D Vel[place] Schedule, swallow whole with glass of water; do not open, crush, chew , break, or dissolve aspirin 325 mg tablet 1 tab PO DAILY carvedilol 12.5 mg tablet 12.5 mg PO DAILY clopidogrel 75 mg tablet 75 mg PO DAILY atorvastatin 80 mg tablet 80 mg PO BEDTIME albuterol sulfate 90 mcg/actuation HFA aerosol inhaler 2 puff inhalation Q4H PRN (Reason: Cough) pantoprazole 40 mg tablet,delayed release (DR/EC) 40 mg PO DAILY sertraline 25 mg tablet 25 mg PO DAILY Rx Instructions: one 25 mg tab + one 100 mg tab = 125 mg daily dose amitriptyline 25 mg tablet 25 mg PO BEDTIME gabapentin [Neurontin] 300 mg capsule 300 mg PO DAILY Lantus Solostar U-100 Insulin 100 unit/mL (3 mL) insulin pen 47 unit subcut QAM nicotine 21 mg/24 hr patch 24 hour 1 patch topical DAILY (DME) FreeStyle [place] 14 Day Sensor Kit See Rx Instructions topical Q2W Qty: 1 Rx Instructions: As directed
[2022-02-21 17:45] LABS: MANUAL DIFF FLAG NO
[2022-02-21] MEDS: Dextrose 5 % 1,000 ML 125 ML IVCONT (17:45)
[2022-02-21 17:47] LABS: Basophils Percent Auto 0.4 % (0-2); Eosinophils Absolute Auto 0.2 X10*3/uL (0.0-0.4); Eosinophils Percent Auto 2.2 % (0-4); Hematocrit 37.1 % (42.0-52.0); Hemoglobin 12.2 g/dl (14.0-18.0); Imm Gran Abs Auto 0.02 X10*3/uL (0.00-0.03); Imm Gran Pct Auto 0.2 % (0.0-0.4); Lymphocytes Absolute Auto 1.9 X10*3/uL (1.2-4.9); Lymphocytes Percent Auto 19.9 % (20-40); Mean Corpuscular HGB Conc 32.9 g/dl (31.0-36.0); Mean Corpuscular Hemoglobin 30.6 pg (27.0-33.0); Mean Platelet Volume 10.2 fL (9.4-12.4); Monocytes Absolute Auto 0.8 X10*3/uL (0.1-1.2); Monocytes Percent Auto 8.8 % (2-11); Neutrophils Absolute Auto 6.6 x10*3/uL (2.0-8.3); Neutrophils Percent Auto 68.5 % (45-73); Platelet Count 368 X10*3/uL (160-400); Red Blood Count 3.99 X10*6/uL (4.60-5.80); Red Cell Distribution Width 13.7 % (11.0-16.0); White Blood Count 9.6 X10*3/uL (4.8-10.8)
[2022-02-21 17:53] VITALS: BP 122/67; BP 150/100; PULSE 58; PULSE 60; RESP 20; TEMP 36.3; O2SAT 97; O2SAT 98; BMI 26.6
[2022-02-21 18:04] LABS: COVID-19 Test Negative (Negative); IDNOW Serial# 55D5AD1C
[2022-02-21 18:06] VITALS: BP 122/76; PULSE 59; RESP 20; TEMP 36.3; O2SAT 100
[2022-02-21 18:06] LABS: B Type Natriuretic Peptide 78 pg/mL (<100); Troponin-I High Sensitivity 6.3 ng/L (<3.5-35.0)
--- NOTE | 2022-02-21 18:11 | PC.NURSE ---
patient presented with cold and clammy skin . responsive but unable to directly answer questions. with use park interpreter . patient states he feels like he is confused . patient states he has chronic pain r/t cancer . Iv placed in left hand and left upper arm . labs sent . first point of care obtained 121. D5 started at 125 . EKG done. Second POC done 144 . Vitals signs stable. at bedside . patient aware of plan of care .
[2022-02-21 18:27] LABS: Glucose, Whole Blood 144 mg/dL (60-115)
[2022-02-21 20:32] LABS: Appearance Urine Clear; Color Urine Yellow; Glucose Urine UA Negative (Negative); Leukocyte Esterase Urine Negative (Negative); Nitrite Urine Negative (Negative); Urine Blood Negative (Negative); Urine Ketones Negative (Negative); Urine Protein Negative (Neg-Trace)
[2022-02-21 22:34] LABS: Alanine Aminotransferase 15 U/L (0-40); Albumin Level 4.7 g/dL (3.5-5.0); Alkaline Phosphatase 62 U/L (39-117); Anion Gap 16 (12-20); Aspartate Amino Transferase 28 U/L (5-37); Bilirubin Direct < 0.2 mg/dL (0.0-0.5); Bilirubin Total 0.3 mg/dL (0.0-1.0); Blood Urea Nitrogen 26 mg/dL (9-16); Calcium 9.1 mg/dL (8.4-10.2); Carbon Dioxide 25 mmol/L (22-29); Chloride 101 mmol/L (96-108); Creatinine Clr Calc Pharmacy 38.7; Estimated Glomerular Filt Rate 31; Glucose Random 124 mg/dL (60-115); Lipase 303 U/L (8-78); Potassium 4.2 mmol/L (3.3-5.1); Sodium 138 mmol/L (135-145); Total Protein 7.6 g/dL (6.5-8.0)
--- NOTE | 2022-02-21 23:33 | P.HPHOSP_ITS ---
History of Present Illness Date of Service: 02/21/22 Chief Complaint: Abd pain 46-year-old male with a past medical history of hypertension, hyperlipidemia, diabetes, CVA, CKD, CHF status post AICD, multiple myeloma, monoclonal gammopathy; presented to the hospital today with a chief complaint of low blood sugar. Patient reports that for the past 1 week he has been not feeling well, having episodes of nausea vomiting and abdominal discomfort, abdominal pain is diffuse in nature, has been having poor oral intake. Denies any fevers and chills. Denies any diarrhea. Denies any cough fevers sputum production. Patient denies any chest pain or palpitations. Patient mentions that he was recently started on Cymbalta and Klonopin. Review of all other systems is negative except mentioned above ER course: Per ER team patient fingerstick glucose is or improved; lab showed mildly elevated creatinine compared to prior values of 1.7; lipase elevated; noted to have mild diffuse abdominal tenderness; concerning for acute pancreatitis. Admitted for further management. [facility] Medical History Bladder pain CAD (coronary artery disease) CKD (chronic kidney disease) CVA (cerebral vascular accident) Diabetes mellitus HLD (hyperlipidemia) HTN (hypertension) ICD (implantable cardioverter-defibrillator) in place Ischemic cardiomyopathy Monoclonal gammopathy Multiple myeloma Multiple myeloma Family History Father Diabetes mellitus Esophageal cancer Mother Diabetes mellitus Brother Diabetes mellitus Sister Diabetes mellitus Surgical History Hx of cardiac cath (~2017) S/P CABG x 2 (~02/2019) Social History Household Members: Family Housing: Apartment Do you presently have visiting nurse or other home services: No Alcohol intake: never Patient Tobacco Use Status: Never used Tobacco Tobacco use type: Cigarette Substance Use Type: Marijuana Advance Directives: Yes Advance Directives on File: Yes Advance Directives Date on File: 08/31/21 service: No Current occupational status: disabled Meds Allergies Allergy/AdvReac Type Severity Reaction Status Date / Time egg [EGG] Allergy Severe NAUSEA, Verified 12/31/21 09:25 ITCHY THROAT meperidine [From DEMEROL] Allergy Unknown AGITATION Verified 12/31/21 09:25 Active Medications: Current Medications Acetaminophen (Acetaminophen 325 Mg Tablet) 650 mg PO Q6H PRN PRN Reason: Pain, Mild (Pain Scale 1-3) Amitriptyline HCl (Amitriptyline Hcl 25 Mg Tablet) 25 mg PO BEDTIME [facility] Aspirin (Aspirin 325 Mg Tablet) 325 mg PO DAILY [facility] Atorvastatin Calcium (Atorvastatin Calcium 80 Mg Tablet) 80 mg PO BEDTIME [facility] Carvedilol (Carvedilol 12.5 Mg Tablet) 12.5 mg PO DAILY [facility]; Protocol Clopidogrel Bisulfate (Clopidogrel Bisulfate 75 Mg Tablet) 75 mg PO DAILY [facility] Dextrose (Dextrose 50 % 25 Gm/50 Ml Syringe) 25 gm IVPUSH Q15M PRN; Protocol PRN Reason: per Hypoglycemia Standing Ord. Enoxaparin Sodium (Enoxaparin Sodium 40 Mg/0.4 Ml Syringe) 40 mg SUBCUT Q24H [facility] Glucose (Glucose Gel 15 Gm Gel..Gram.) 15 gm PO Q15M PRN; Protocol PRN Reason: per Hypoglycemia Standing Ord. Hydromorphone HCl (Hydromorphone Hcl 0.5 Mg/0.5 Ml Syringe) 0.5 mg IVPUSH Q4H PRN; Protocol PRN Reason: Pain, Severe (Pain Scale 7-10) Dextrose (D5w) 1,000 mls @ 125 mls/hr IVCONT .Q8H ONE Stop: 02/22/22 01:28 Last Admin: 02/21/22 17:45 Dose: 125 mls/hr Sodium Chloride (Ns) 1,000 mls @ 100 mls/hr IVCONT .Q10H [facility] Insulin Glargine (Insulin Glargine,Hum.Rec.Anlog 100 Unit/Ml 10 Ml Vial) 20 unit SUBCUT BEDTIME [facility] Insulin Human Lispro (Insulin Lispro 100 Unit/Ml 3 Ml Vial) 0 unit SUBCUT QIDACHS [facility]; Protocol Melatonin (Melatonin 3 Mg Tablet) 6 mg PO BEDTIME PRN PRN Reason: Insomnia Non-Formulary Medication (Fenofibrate Nanocrystallized) 1 tab PO DAILY [facility] Non-Formulary Medication (Pantoprazole) 40 mg PO DAILY [facility] Ondansetron HCl (Ondansetron Hcl 4 Mg/2 Ml Vial) 4 mg IVPUSH Q8H PRN PRN Reason: Nausea and Vomiting Senna (Sennosides 8.6 Mg Tablet) 17.2 mg PO BEDTIME PRN PRN Reason: Constipation Sertraline HCl (Sertraline Hcl 25 Mg Tablet) 25 mg PO DAILY [facility] Sertraline HCl (Sertraline Hcl 100 Mg Tablet) 100 mg PO DAILY [facility] Sodium Chloride (0.9 % Sodium Chloride Flush 3 Ml Syringe) 3 ml IVFLUSH QSHIFT [facility] Torsemide (Torsemide 20 Mg Tablet) 40 mg PO DAILY [facility]; Protocol Home Medications Medication Instructions Recorded Confirmed Last Taken Type albuterol sulfate 90 mcg/actuation 2 puff inhalation Q4H PRN Cough 04/25/20 01/01/22 11/25/21 History aerosol inhaler amitriptyline 25 mg tablet 25 mg PO BEDTIME 04/25/20 02/21/22 11/25/21 History atorvastatin 80 mg tablet 80 mg PO BEDTIME 04/25/20 02/21/22 11/25/21 History clopidogrel 75 mg tablet 75 mg PO DAILY 04/25/20 02/21/22 11/25/21 History gabapentin 300 mg capsule 300 mg PO DAILY 04/25/20 01/01/22 11/25/21 History (Neurontin) insulin glargine 100 unit/mL (3 47 unit subcut QAM 04/25/20 01/01/22 11/25/21 History mL) subcutaneous pen (Lantus Solostar U-100 Insulin) pantoprazole 40 mg tablet,delayed 40 mg PO DAILY 04/25/20 02/21/22 11/25/21 History release sertraline 25 mg tablet 25 mg PO DAILY 04/25/20 02/21/22 11/25/21 History azelastine 137 mcg (0.1 %) nasal 2 spray intranasal BID 02/04/21 01/01/22 11/25/21 History spray aerosol fenofibrate nanocrystallized 145 1 tab PO DAILY 02/04/21 02/21/22 11/25/21 History mg tablet gabapentin 300 mg capsule 600 mg PO BEDTIME 02/04/21 01/01/22 11/25/21 History insulin lispro 100 unit/mL 10 - 18 unit subcut TID 02/04/21 01/01/22 11/25/21 History subcutaneous pen (Humalog KwikPen (U-100) Insulin) pen needle, diabetic 31 gauge x 02/04/21 12/16/21 11/25/21 History 5/16 (BD Ultra-Fine Short Pen Needle) sertraline 100 mg tablet 100 mg PO DAILY 05/25/21 02/21/22 11/25/21 History flash glucose sensor (FreeStyle #1 ea 11/06/21 12/16/21 11/25/21 History [place] 14 Day Sensor kit) aspirin 325 mg tablet 1 tab PO DAILY 11/27/21 02/21/22 11/25/21 History carvedilol 12.5 mg tablet 12.5 mg PO DAILY 11/27/21 02/21/22 11/25/21 History nicotine 21 mg/24 hr daily 1 patch topical DAILY 12/31/21 01/01/22 Unknown History transdermal patch Physical Exam Vital Signs and Narrative: Vital Signs: Last Vital Signs Temp 97.4 F 02/21/22 18:06 Pulse 59 02/21/22 18:06 Resp 20 02/21/22 18:06 BP 122/76 02/21/22 18:06 Pulse Ox 100 02/21/22 18:06 O2 Del Method 02/21/22 18:06 BMI result Body Mass Index 26.6 Gen: Appears be in no acute distress HEENT: NCAT, Moist mucosa. Pulmonary: Vesicular breath sounds, fair air entry CVS: Normal S1-S2 Abdomen: BS+, Soft mildly tender diffusely, no guarding no rigidity Extremities: Warm well perfused Neuro: Alert and awake. Results Labs CBC and Chem 7: 02/21/22 17:42 02/21/22 22:05 Labs: Laboratory Results - last 24 hr 02/21/22 02/21/22 02/21/22 17:24 17:42 17:42 MCV 93.0 MCH 30.6 MCHC 32.9 RDW 13.7 Plt Count 368 MPV 10.2 Immature Gran % (Auto) 0.2 Neut % (Auto) 68.5 Lymph % (Auto) 19.9 L [place] % (Auto) 8.8 Eos % (Auto) 2.2 Baso % (Auto) 0.4 Lymph # (Auto) 1.9 [place] # (Auto) 0.8 Eos # (Auto) 0.2 Baso # (Auto) 0.0 Abs Immat Gran (auto) 0.02 Absolute Neuts (auto) 6.6 Absolute Nucleated RBC 0.000 Nucleated RBC % (auto) 0.0 Anion Gap Estim Creat Clear Calc Estimated GFR POC Glucose 121 H Random Glucose Calcium Total Bilirubin Direct Bilirubin AST ALT Alkaline Phosphatase B-Natriuretic Peptide 78 Total Protein Albumin Lipase Urine Color Urine Appearance Urine pH Ur Specific [place] Urine Protein Urine Glucose (UA) Urine Ketones Urine Blood Urine Nitrite Ur Leukocyte Esterase COVID-19 ([facility]) COVID-19 Clin Com 02/21/22 02/21/22 02/21/22 17:42 18:16 20:23 MCV MCH MCHC RDW Plt Count MPV Immature Gran % (Auto) Neut % (Auto) Lymph % (Auto) [place] % (Auto) Eos % (Auto) Baso % (Auto) Lymph # (Auto) [place] # (Auto) Eos # (Auto) Baso # (Auto) Abs Immat Gran (auto) Absolute Neuts (auto) Absolute Nucleated RBC Nucleated RBC % (auto) Anion Gap Estim Creat Clear Calc Estimated GFR POC Glucose 144 H Random Glucose Calcium Total Bilirubin Direct Bilirubin AST ALT Alkaline Phosphatase B-Natriuretic Peptide Total Protein Albumin Lipase Urine Color Yellow Urine Appearance Clear Urine pH 5.0 Ur Specific [place] 1.010 Urine Protein Negative Urine Glucose (UA) Negative Urine Ketones Negative Urine Blood Negative Urine Nitrite Negative Ur Leukocyte Esterase Negative COVID-19 ([facility]) Negative COVID-19 [employer] Com See Note 02/21/22 22:05 MCV MCH MCHC RDW Plt Count MPV Immature Gran % (Auto) Neut % (Auto) Lymph % (Auto) [place] % (Auto) Eos % (Auto) Baso % (Auto) Lymph # (Auto) [place] # (Auto) Eos # (Auto) Baso # (Auto) Abs Immat Gran (auto) Absolute Neuts (auto) Absolute Nucleated RBC Nucleated RBC % (auto) Anion Gap 16 Estim Creat Clear Calc 38.7 Estimated GFR 31 POC Glucose Random Glucose 124 H Calcium 9.1 D Total Bilirubin 0.3 Direct Bilirubin < 0.2 AST 28 ALT 15 Alkaline Phosphatase 62 D B-Natriuretic Peptide Total Protein 7.6 Albumin 4.7 Lipase 303 H Urine Color Urine Appearance Urine pH Ur Specific [place] Urine Protein Urine Glucose (UA) Urine Ketones Urine Blood Urine Nitrite Ur Leukocyte Esterase COVID-19 ([facility]) COVID-19 Clin Com Imaging Radiologist's Impressions: Impressions Chest X-Ray 02/21/22 18:00 IMPRESSION: Streaky opacity in the retrocardiac left lung base favors atelectasis over aspiration or pneumonia. Assessment and Plan (1) Acute pancreatitis: Status: Acute Plan 46-year-old male with a past medical history of hypertension, hyperlipidemia, diabetes, CVA, CKD, CHF status post AICD, multiple myeloma, monoclonal gammopathy; presented to the hospital today with a chief complaint of low blood sugar. Hypoglycemia: Patient reports his fingerstick glucose less than 40. Currently improved. Likely in setting of poor oral intake. Supportive care. Hypogl ycemia protocol. MAURI on CKD: Patient's creatinine on presentation was 2.2. Prior creatinine lev el was 1.7. Encouraged oral hydration. Pancreatitis: Lipase elevated to 300s. Patient denies any alcohol use. Will obtain CT abdomen to rule out any gallstones. pain control, supportive care. History of diabetes: Insulin sliding scale. Lantus 20 units History of CHF: Stable. continue home torsemide History of anxiety / depression: Continue home sertraline, Klonopin DVT prophylaxis: subQ heparin Code status: Full code Quality Stroke Does the patient have a stroke diagnosis?: No VTE Prior VTE?: No VTE Risk Level:: Medical - moderate - high VTE Device Contraindication: Treatment Not Indicated VTE Drug Contraindication: N/A - Med Ordered
[2022-02-21 23:40] VITALS: RESP 16
[2022-02-21] MEDS: ondansetron HCL 4 MG/2 ML VIAL IVPUSH (23:40)
[2022-02-21] MEDS: Morphine Sulfate 2 MG/ML CARTRIDGE 1 MG IVPUSH (23:40)
[2022-02-21 23:43] VITALS: BP 136/79; PULSE 64; RESP 16; TEMP 36.6; O2SAT 100
[2022-02-21] MEDS: 0.9 % Sodium Chloride 1,000 ML 100 ML IVCONT (23:50)
[2022-02-22] VITALS (7 sets, daily range): BP systolic 107–146; BP diastolic 65–83; PULSE 57–87; RESP 12–18; TEMP 36.3–36.6; O2SAT 95–100
[2022-02-22] MEDS: Enoxaparin Sodium 40 MG/0.4 ML SYRINGE SUBCUT (00:18)
[2022-02-22] MEDS: HYDROmorphone HCl 0.5 MG/0.5 ML SYRINGE IVPUSH ×6 (01:57→20:27)
[2022-02-22] MEDS: Acetaminophen 325 MG TABLET 650 MG PO ×2 (04:45→14:13)
[2022-02-22 06:13] LABS: Basophils Percent Auto 0.5 % (0-2); Eosinophils Absolute Auto 0.2 X10*3/uL (0.0-0.4); Eosinophils Percent Auto 2.5 % (0-4); Hematocrit 32.1 % (42.0-52.0); Hemoglobin 10.7 g/dl (14.0-18.0); Imm Gran Abs Auto 0.03 X10*3/uL (0.00-0.03); Imm Gran Pct Auto 0.4 % (0.0-0.4); Lymphocytes Absolute Auto 2.1 X10*3/uL (1.2-4.9); Lymphocytes Percent Auto 24.8 % (20-40); MANUAL DIFF FLAG NO; Mean Corpuscular HGB Conc 33.3 g/dl (31.0-36.0); Mean Corpuscular Hemoglobin 31.1 pg (27.0-33.0); Mean Corpuscular Volume 93.3 fL (80.0-98.0); Mean Platelet Volume 10.1 fL (9.4-12.4); Monocytes Absolute Auto 0.9 X10*3/uL (0.1-1.2); Monocytes Percent Auto 10.7 % (2-11); Neutrophils Percent Auto 61.1 % (45-73); Platelet Count 341 X10*3/uL (160-400); Red Blood Count 3.44 X10*6/uL (4.60-5.80); Red Cell Distribution Width 13.7 % (11.0-16.0); White Blood Count 8.3 X10*3/uL (4.8-10.8)
[2022-02-22] MEDS: Omeprazole 20 MG CAPSULE.DR PO (06:22)
[2022-02-22] MEDS: Heparin Sodium,Porcine 5,000 UNIT/ML VIAL 5000 UNIT SUBCUT ×3 (06:22→20:39)
[2022-02-22 06:26] LABS: Anion Gap 14 (12-20); Blood Urea Nitrogen 23 mg/dL (9-16); Calcium 8.7 mg/dL (8.4-10.2); Carbon Dioxide 26 mmol/L (22-29); Chloride 103 mmol/L (96-108); Creatinine Clr Calc Pharmacy 41.6; Estimated Glomerular Filt Rate 34; Glucose Random 67 mg/dL (60-115); Potassium 4.1 mmol/L (3.3-5.1); Sodium 139 mmol/L (135-145)
[2022-02-22 07:12] LABS: Glucose, Whole Blood 69 mg/dL (60-115)
[2022-02-22 08:12] LABS: Glucose, Whole Blood 78 mg/dL (60-115)
--- NOTE | 2022-02-22 08:17 | PHA.MEDREC ---
Pharmacy Consult ? Medication Reconciliation Pharmacy has completed the medication reconciliation based on pmrima, notes and claim history
[2022-02-22 08:31] LABS: Estimated Average Glucose 189 mg/dL; Hemoglobin A1c % 8.2 %
[2022-02-22] MEDS: DULoxetine HCl 20 MG CAPSULE.DR PO ×2 (08:56→20:39)
[2022-02-22] MEDS: Torsemide 20 MG TABLET 40 MG PO (08:56)
[2022-02-22] MEDS: Sulfamethox/Trimeth 800/160 TABLET 1 TAB PO (08:57)
[2022-02-22] MEDS: Clopidogrel Bisulfate 75 MG TABLET PO (08:57)
[2022-02-22] MEDS: Calcium + Vitamin D 250 MG TABLET PO ×3 (08:57→20:39)
[2022-02-22] MEDS: Aspirin 325 MG TABLET PO (08:57)
[2022-02-22] MEDS: Sertraline HCL 25 MG TABLET PO (08:57)
[2022-02-22] MEDS: Sertraline HCL 100 MG TABLET PO (08:58)
[2022-02-22] MEDS: Fenofibrate 160 MG TABLET PO (08:58)
[2022-02-22] MEDS: valACYclovir HCL 500 MG TABLET PO (08:58)
[2022-02-22] MEDS: 0.9 % Sodium Chloride 1,000 ML 100 ML IVCONT (09:02)
--- NOTE | 2022-02-22 11:20 | HO.PM.IMPN ---
Subjective Subjective Date of Service: 02/23/22 Interval History: hypoglycemia,Abd pain, nauseated. Review of Systems still has pain ,feels nauseated Physical Exam Vital Signs: Vital Signs: Last Vital Signs Temp 97.4 F 02/22/22 10:57 Pulse 68 02/22/22 10:57 Resp 18 02/22/22 10:57 BP 146/81 H 02/22/22 10:57 Pulse Ox 95 02/22/22 10:57 O2 Del Method 02/22/22 10:57 BMI result Body Mass Index 26.6 Appearance: Alert.? Oriented X3.?still in pain/nauseated .? cvs : [id number]. res: clear to auscultation ,no rhonchii or wheezing abd: no rebound or guarding ,nt, bs present. ext pulses present , no cyanosis . neuro: axo3 , nonfocal. Objective Data Active Medications Acetaminophen (Acetaminophen 325 Mg Tablet) 650 mg PO Q6H PRN PRN Reason: Pain, Mild (Pain Scale 1-3) Last Admin: 02/22/22 04:45 Dose: 650 mg Documented By: BROWN Albuterol Sulfate (Albuterol Sulfate 90 Mcg 8 Gm Inhaler) 2 puff INHALE Q4H PRN PRN Reason: Cough Amitriptyline HCl (Amitriptyline Hcl 25 Mg Tablet) 25 mg PO BEDTIME [facility] Aspirin (Aspirin 325 Mg Tablet) 325 mg PO DAILY [facility] Last Admin: 02/22/22 08:57 Dose: 325 mg Documented By: ZECHARIAH Atorvastatin Calcium (Atorvastatin Calcium 80 Mg Tablet) 80 mg PO BEDTIME [facility] Azelastine HCl (Azelastine Hcl Nasal 137 Mcg/[place] 30 Ml) 2 spray NOSTRIL-B BID [facility] Calcium Carbonate/Cholecalciferol (Calcium + Vitamin D 250 Mg Tablet) 250 mg PO TID [facility] Last Admin: 02/22/22 08:57 Dose: 250 mg Documented By: ZECHARIAH Carvedilol (Carvedilol 12.5 Mg Tablet) 12.5 mg PO DAILY [facility]; Protocol Last Admin: 02/22/22 09:01 Dose: Not Given Documented By: ZECHARIAH Non-Admin Reason: Decreased Heart Rate Clonazepam (Clonazepam 0.5 Mg Tablet) 0.5 mg PO BEDTIME [facility] Clopidogrel Bisulfate (Clopidogrel Bisulfate 75 Mg Tablet) 75 mg PO DAILY [facility] Last Admin: 02/22/22 08:57 Dose: 75 mg Documented By: ZECHARIAH Dextrose (Dextrose 50 % 25 Gm/50 Ml Syringe) 25 gm IVPUSH Q15M PRN; Protocol PRN Reason: per Hypoglycemia Standing Ord. Duloxetine HCl (Duloxetine Hcl 20 Mg Capsule.) 20 mg PO BID [facility] Last Admin: 02/22/22 08:56 Dose: 20 mg Documented By: ZECHARIAH Fenofibrate (Fenofibrate 160 Mg Tablet) 160 mg PO DAILY [facility] Last Admin: 02/22/22 08:58 Dose: 160 mg Documented By: ZECHARIAH Glucose (Glucose Gel 15 Gm Gel..Gram.) 15 gm PO Q15M PRN; Protocol PRN Reason: per Hypoglycemia Standing Ord. Heparin Sodium (Porcine) (Heparin Sodium,Porcine 5,000 Unit/Ml Vial) 5,000 unit SUBCUT Q8H [facility] Last Admin: 02/22/22 06:22 Dose: 5,000 unit Documented By: BROWN Hydromorphone HCl (Hydromorphone Hcl 0.5 Mg/0.5 Ml Syringe) 0.5 mg IVPUSH Q4H PRN; Protocol PRN Reason: Pain, Severe (Pain Scale 7-10) Last Admin: 02/22/22 10:43 Dose: 0.5 mg Documented By: FABIOLA Sodium Chloride (Ns) 1,000 mls @ 100 mls/hr IVCONT .Q10H [facility] Last Admin: 02/22/22 09:02 Dose: 100 mls/hr Documented By: ZECHARIAH Insulin Glargine (Insulin Glargine,Hum.Rec.Anlog 100 Unit/Ml 10 Ml Vial) 20 unit SUBCUT BEDTIME [facility] Insulin Human Lispro (Insulin Lispro 100 Unit/Ml 3 Ml Vial) 0 unit SUBCUT QIDACHS [facility]; Protocol Last Admin: 02/22/22 07:19 Dose: Not Given Documented By: ZECHARIAH Non-Admin Reason: No Insulin Coverage Melatonin (Melatonin 3 Mg Tablet) 6 mg PO BEDTIME PRN PRN Reason: Insomnia Omeprazole (Omeprazole 20 Mg Capsule.) 20 mg PO DAILY@0630 [facility] Last Admin: 02/22/22 06:22 Dose: 20 mg Documented By: BROWN Ondansetron HCl (Ondansetron Hcl 4 Mg/2 Ml Vial) 4 mg IVPUSH Q8H PRN PRN Reason: Nausea and Vomiting Senna (Sennosides 8.6 Mg Tablet) 17.2 mg PO BEDTIME PRN PRN Reason: Constipation Sertraline HCl (Sertraline Hcl 25 Mg Tablet) 25 mg PO DAILY [facility] Last Admin: 02/22/22 08:57 Dose: 25 mg Documented By: ZECHARIAH Sertraline HCl (Sertraline Hcl 100 Mg Tablet) 100 mg PO DAILY [facility] Last Admin: 02/22/22 08:58 Dose: 100 mg Documented By: ZECHARIAH Sodium Chloride (0.9 % Sodium Chloride Flush 3 Ml Syringe) 3 ml IVFLUSH QSHIFT [facility] Last Admin: 02/22/22 08:55 Dose: Not Given Documented By: ZECHARIAH Non-Admin Reason: IV Running Tamsulosin HCl (Tamsulosin Hcl 0.4 Mg Capsule) 0.4 mg PO BEDTIME [facility] Torsemide (Torsemide 20 Mg Tablet) 40 mg PO DAILY [facility]; Protocol Last Admin: 02/22/22 08:56 Dose: 40 mg Documented By: ZECHARIAH Trimethoprim/Sulfamethoxazole (Sulfamethox/Trimeth 800/160 Tablet) 1 tab PO DAILY [facility] Last Admin: 02/22/22 08:57 Dose: 1 tab Documented By: ZECHARIAH Valacyclovir HCl (Valacyclovir Hcl 500 Mg Tablet) 500 mg PO DAILY [facility] Last Admin: 02/22/22 08:58 Dose: 500 mg Documented By: ZECHARIAH Labs CBC & Chem 7: 02/22/22 05:54 02/22/22 05:54 Labs: Laboratory Results - last 24 hr 02/21/22 02/21/22 02/21/22 17:24 17:42 17:42 MCV 93.0 MCH 30.6 MCHC 32.9 RDW 13.7 Plt Count 368 MPV 10.2 Immature Gran % (Auto) 0.2 Neut % (Auto) 68.5 Lymph % (Auto) 19.9 L [place] % (Auto) 8.8 Eos % (Auto) 2.2 Baso % (Auto) 0.4 Lymph # (Auto) 1.9 [place] # (Auto) 0.8 Eos # (Auto) 0.2 Baso # (Auto) 0.0 Abs Immat Gran (auto) 0.02 Absolute Neuts (auto) 6.6 Absolute Nucleated RBC 0.000 Nucleated RBC % (auto) 0.0 Anion Gap Estim Creat Clear Calc Estimated GFR POC Glucose 121 H Random Glucose Estimat Average Glucose Hemoglobin A1c % Calcium Total Bilirubin Direct Bilirubin AST ALT Alkaline Phosphatase B-Natriuretic Peptide 78 Total Protein Albumin Lipase Urine Color Urine Appearance Urine pH Ur Specific [place] Urine Protein Urine Glucose (UA) Urine Ketones Urine Blood Urine Nitrite Ur Leukocyte Esterase COVID-19 ([facility]) COVID-19 Clin Com 02/21/22 02/21/22 02/21/22 17:42 18:16 20:23 MCV MCH MCHC RDW Plt Count MPV Immature Gran % (Auto) Neut % (Auto) Lymph % (Auto) [place] % (Auto) Eos % (Auto) Baso % (Auto) Lymph # (Auto) [place] # (Auto) Eos # (Auto) Baso # (Auto) Abs Immat Gran (auto) Absolute Neuts (auto) Absolute Nucleated RBC Nucleated RBC % (auto) Anion Gap Estim Creat Clear Calc Estimated GFR POC Glucose 144 H Random Glucose Estimat Average Glucose Hemoglobin A1c % Calcium Total Bilirubin Direct Bilirubin AST ALT Alkaline Phosphatase B-Natriuretic Peptide Total Protein Albumin Lipase Urine Color Yellow Urine Appearance Clear Urine pH 5.0 Ur Specific [place] 1.010 Urine Protein Negative Urine Glucose (UA) Negative Urine Ketones Negative Urine Blood Negative Urine Nitrite Negative Ur Leukocyte Esterase Negative COVID-19 ([facility]) Negative COVID-19 Clin Com See Note 02/21/22 02/22/22 02/22/22 22:05 05:54 05:54 MCV 93.3 MCH 31.1 MCHC 33.3 RDW 13.7 Plt Count 341 MPV 10.1 Immature Gran % (Auto) 0.4 Neut % (Auto) 61.1 Lymph % (Auto) 24.8 [place] % (Auto) 10.7 Eos % (Auto) 2.5 Baso % (Auto) 0.5 Lymph # (Auto) 2.1 [place] # (Auto) 0.9 Eos # (Auto) 0.2 Baso # (Auto) 0.0 Abs Immat Gran (auto) 0.03 Absolute Neuts (auto) 5.0 Absolute Nucleated RBC 0.000 Nucleated RBC % (auto) 0.0 Anion Gap 16 14 Estim Creat Clear Calc 38.7 41.6 Estimated GFR 31 34 POC Glucose Random Glucose 124 H 67 D Estimat Average Glucose Hemoglobin A1c % Calcium 9.1 D 8.7 Total Bilirubin 0.3 Direct Bilirubin < 0.2 AST 28 ALT 15 Alkaline Phosphatase 62 D B-Natriuretic Peptide Total Protein 7.6 Albumin 4.7 Lipase 303 H Urine Color Urine Appearance Urine pH Ur Specific [place] Urine Protein Urine Glucose (UA) Urine Ketones Urine Blood Urine Nitrite Ur Leukocyte Esterase COVID-19 ([facility]) COVID-19 Clin Com 02/22/22 02/22/22 02/22/22 05:54 07:07 08:09 MCV MCH MCHC RDW Plt Count MPV Immature Gran % (Auto) Neut % (Auto) Lymph % (Auto) [place] % (Auto) Eos % (Auto) Baso % (Auto) Lymph # (Auto) [place] # (Auto) Eos # (Auto) Baso # (Auto) Abs Immat Gran (auto) Absolute Neuts (auto) Absolute Nucleated RBC Nucleated RBC % (auto) Anion Gap Estim Creat Clear Calc Estimated GFR POC Glucose 69 78 Random Glucose Estimat Average Glucose 189 Hemoglobin A1c % 8.2 Calcium Total Bilirubin Direct Bilirubin AST ALT Alkaline Phosphatase B-Natriuretic Peptide Total Protein Albumin Lipase Urine Color Urine Appearance Urine pH Ur Specific [place] Urine Protein Urine Glucose (UA) Urine Ketones Urine Blood Urine Nitrite Ur Leukocyte Esterase COVID-19 ([facility]) COVID-19 Clin Com Assessment and Plan (1) Hypoglycemia: Status: Acute (2) Acute on chronic kidney failure: Status: Acute (3) Acute pancreatitis: Status: Acute Plan 46-year-old male with a past medical history of hypertension, hyperlipidemia, diabetes, CVA, CKD, CHF status post AICD, multiple myeloma, monoclonal gammopathy; presented to the hospital today with a chief complaint of low blood sugar.? Hypoglycemia:?seems improving ,possible ? Likely in setting of poor oral intake.? Supportive care.? Hypoglycemia protocol.? MAURI on CKD:? Patient's creatinine on presentation was 2.2.? Encouraged oral hydration and hydration. ? Pancreatitis:? Lipase elevated to 300s.? ? Patient denies any alcohol use.? CT abdomen -negative .? pain control, supportive care. History of diabetes:? Insulin sliding scale.? Lantus 20 units History of CHF:? Stable. ? continue home torsemide History of anxiety / depression: Continue home sertraline, Klonopin ?DVT prophylaxis: ? subQ heparin Code status:? Full code Quality Stroke Does the patient have a stroke diagnosis?: No VTE Prior VTE?: No VTE Risk Level:: Medical - moderate - high VTE Device Contraindication: Treatment Not Indicated VTE Drug Contraindication: N/A - Med Ordered
[2022-02-22] MEDS: Azelastine HCl Nasal 137 MCG/Spray 30 ML 2 SPRAY NOSTRIL-B ×2 (11:24→22:17)
[2022-02-22 11:54] LABS: Glucose, Whole Blood 160 mg/dL (60-115)
[2022-02-22] MEDS: ondansetron HCL 4 MG/2 ML VIAL IVPUSH (18:25)
[2022-02-22 19:58] LABS: Glucose, Whole Blood 174 mg/dL (60-115)
[2022-02-22] MEDS: 0.9 % Sodium Chloride Flush 3 ML SYRINGE IVFLUSH (20:28)
[2022-02-22] MEDS: Tamsulosin HCL 0.4 MG CAPSULE PO (20:39)
[2022-02-22] MEDS: clonazePAM 0.5 MG TABLET PO (20:39)
[2022-02-22] MEDS: Atorvastatin Calcium 80 MG TABLET PO (20:39)
--- NOTE | 2022-02-22 22:47 | PC.NURSE ---
For HS assessment pt's , Dana at bedside. Pt and his both agreed that patient would not take his Amytriptyline (they states he no longer takes) and Lantus (because he is not eating). Pt's went over patient's medications that were ordered - and stated some were ordered wrong. notified. Will pass along in report to oncoming RN at 2300.
--- NOTE | 2022-02-22 22:57 | PC.NURSE ---
Dr had me notify pharmacy of med changes per pt's . Spoke with Briana who would pass it along in am.
[2022-02-23] VITALS: BP 116/72; PULSE 67; RESP 17; TEMP 36.7; O2SAT 98
[2022-02-23] MEDS: HYDROmorphone HCl 0.5 MG/0.5 ML SYRINGE IVPUSH ×6 (00:05→22:08)
[2022-02-23] MEDS: 0.9 % Sodium Chloride Flush 3 ML SYRINGE IVFLUSH ×2 (00:06→09:12)
[2022-02-23] MEDS: 0.9 % Sodium Chloride 1,000 ML 100 ML IVCONT ×2 (00:10→12:10)
[2022-02-23] MEDS: ondansetron HCL 4 MG/2 ML VIAL IVPUSH (02:57)
[2022-02-23 04:00] VITALS: BP 124/70; PULSE 74; RESP 17; TEMP 36.3; O2SAT 97
[2022-02-23] MEDS: Heparin Sodium,Porcine 5,000 UNIT/ML VIAL 5000 UNIT SUBCUT ×3 (06:03→21:52)
[2022-02-23] MEDS: Omeprazole 20 MG CAPSULE.DR PO (06:03)
[2022-02-23 07:20] LABS: Glucose, Whole Blood 174 mg/dL (60-115)
[2022-02-23 07:49] VITALS: BP 133/65; PULSE 63; RESP 18; TEMP 36.3; O2SAT 94
[2022-02-23] MEDS: Sulfamethox/Trimeth 800/160 TABLET 1 TAB PO (09:10)
[2022-02-23] MEDS: carvediloL 12.5 MG TABLET PO (09:10)
[2022-02-23] MEDS: Torsemide 20 MG TABLET 40 MG PO (09:11)
[2022-02-23] MEDS: Calcium + Vitamin D 250 MG TABLET PO ×3 (09:11→21:54)
[2022-02-23] MEDS: Clopidogrel Bisulfate 75 MG TABLET PO (09:11)
[2022-02-23] MEDS: Sertraline HCL 25 MG TABLET PO (09:11)
[2022-02-23] MEDS: Aspirin 325 MG TABLET PO (09:11)
[2022-02-23] MEDS: valACYclovir HCL 500 MG TABLET PO (09:11)
[2022-02-23] MEDS: Sertraline HCL 100 MG TABLET PO (09:11)
[2022-02-23] MEDS: DULoxetine HCl 20 MG CAPSULE.DR PO ×2 (09:11→21:56)
[2022-02-23] MEDS: Fenofibrate 160 MG TABLET PO (09:11)
[2022-02-23] MEDS: Famotidine 20 MG TABLET PO ×2 (10:41→21:55)
[2022-02-23 11:29] LABS: Glucose, Whole Blood 188 mg/dL (60-115)
[2022-02-23 11:44] VITALS: BP 137/74; PULSE 84; RESP 18; TEMP 36.7; O2SAT 98
[2022-02-23] MEDS: diphenhydrAMINE HCL 50 MG/ML VIAL 12.5 MG IVPUSH (12:55)
--- NOTE | 2022-02-23 12:57 | P.PNIM_ITS ---
Subjective Subjective Date of Service: 02/23/22 Interval History: hypoglycemia,Abd pain, nauseated. Review of Systems still has pain/nausea ,eating very small amount in addition has bony pains shoulder and legs Physical Exam Vital Signs: Vital Signs: Last Vital Signs Temp 98.1 F 02/23/22 11:44 Pulse 84 02/23/22 11:44 Resp 18 02/23/22 11:44 BP 137/74 02/23/22 11:44 Pulse Ox 98 02/23/22 11:44 O2 Del Method 02/23/22 11:44 BMI result Body Mass Index 26.6 ? Appearance: Alert.? Oriented X3.?still in pain/nauseated .? cvs : [id number]. res: clear to auscultation ,no rhonchii or wheezing abd: no rebound or guarding ,still diffuse tender otherwise soft, bs present. ext pulses present , no cyanosis . neuro: axo3 , nonfocal. Objective Data Active Medications Acetaminophen (Acetaminophen 325 Mg Tablet) 650 mg PO Q6H PRN PRN Reason: Pain, Mild (Pain Scale 1-3) Last Admin: 02/22/22 14:13 Dose: 650 mg Documented By: FABIOLA Albuterol Sulfate (Albuterol Sulfate 90 Mcg 8 Gm Inhaler) 2 puff INHALE Q4H PRN PRN Reason: Cough Amitriptyline HCl (Amitriptyline Hcl 25 Mg Tablet) 25 mg PO BEDTIME [facility] Last Admin: 02/22/22 22:17 Dose: Not Given Documented By: MARY Non-Admin Reason: Patient Refused Aspirin (Aspirin 325 Mg Tablet) 325 mg PO DAILY [facility] Last Admin: 02/23/22 09:11 Dose: 325 mg Documented By: FABIOLA Atorvastatin Calcium (Atorvastatin Calcium 80 Mg Tablet) 80 mg PO BEDTIME [facility] Last Admin: 02/22/22 20:39 Dose: 80 mg Documented By: MARY Azelastine HCl (Azelastine Hcl Nasal 137 Mcg/[place] 30 Ml) 2 spray NOSTRIL-B BID [facility] Last Admin: 02/23/22 09:16 Dose: Not Given Documented By: FABIOLA Non-Admin Reason: Patient Refused Calcium Carbonate/Cholecalciferol (Calcium + Vitamin D 250 Mg Tablet) 250 mg PO TID [facility] Last Admin: 02/23/22 09:11 Dose: 250 mg Documented By: FABIOLA Carvedilol (Carvedilol 12.5 Mg Tablet) 12.5 mg PO DAILY [facility]; Protocol Last Admin: 02/23/22 09:10 Dose: 12.5 mg Documented By: FABIOLA Clonazepam (Clonazepam 0.5 Mg Tablet) 0.5 mg PO BEDTIME [facility] Last Admin: 02/22/22 20:39 Dose: 0.5 mg Documented By: MARY Clopidogrel Bisulfate (Clopidogrel Bisulfate 75 Mg Tablet) 75 mg PO DAILY [facility] Last Admin: 02/23/22 09:11 Dose: 75 mg Documented By: FABIOLA Dextrose (Dextrose 50 % 25 Gm/50 Ml Syringe) 25 gm IVPUSH Q15M PRN; Protocol PRN Reason: per Hypoglycemia Standing Ord. Diphenhydramine HCl (Diphenhydramine Hcl 50 Mg/Ml Vial) 12.5 mg IVPUSH Q6H PRN PRN Reason: nausea Last Admin: 02/23/22 12:55 Dose: 12.5 mg Documented By: FABIOLA Duloxetine HCl (Duloxetine Hcl 20 Mg Capsule.Dr) 20 mg PO BID [facility] Last Admin: 02/23/22 09:11 Dose: 20 mg Documented By: FABIOLA Famotidine (Famotidine 20 Mg Tablet) 20 mg PO BID [facility] Last Admin: 02/23/22 10:41 Dose: 20 mg Documented By: FABIOLA Fenofibrate (Fenofibrate 160 Mg Tablet) 160 mg PO DAILY [facility] Last Admin: 02/23/22 09:11 Dose: 160 mg Documented By: FABIOLA Gabapentin (Gabapentin 300 Mg Capsule) 600 mg PO BEDTIME [facility] Gabapentin (Gabapentin 300 Mg Capsule) 300 mg PO DAILY [facility] Glucose (Glucose Gel 15 Gm Gel..Gram.) 15 gm PO Q15M PRN; Protocol PRN Reason: per Hypoglycemia Standing Ord. Heparin Sodium (Porcine) (Heparin Sodium,Porcine 5,000 Unit/Ml Vial) 5,000 unit SUBCUT Q8H [facility] Last Admin: 02/23/22 06:03 Dose: 5,000 unit Documented By: MYESHA Hydromorphone HCl (Hydromorphone Hcl 0.5 Mg/0.5 Ml Syringe) 0.5 mg IVPUSH Q3H PRN; Protocol PRN Reason: Pain, Severe (Pain Scale 7-10) Last Admin: 02/23/22 12:54 Dose: 0.5 mg Documented By: FABIOLA Sodium Chloride (Ns) 1,000 mls @ 100 mls/hr IVCONT .Q10H [facility] Last Admin: 02/23/22 12:10 Dose: 100 mls/hr Documented By: FABIOLA Insulin Glargine (Insulin Glargine,Hum.Rec.Anlog 100 Unit/Ml 10 Ml Vial) 20 unit SUBCUT BEDTIME [facility] Last Admin: 02/22/22 22:17 Dose: Not Given Documented By: MARY Non-Admin Reason: Patient Refused Insulin Human Lispro (Insulin Lispro 100 Unit/Ml 3 Ml Vial) 0 unit SUBCUT QIDACHS [facility]; Protocol Last Admin: 02/23/22 11:55 Dose: Not Given Documented By: FABIOLA Non-Admin Reason: No Insulin Coverage Loperamide HCl (Loperamide Hcl 2 Mg Capsule) 2 mg PO Q4H PRN PRN Reason: Diarrhea Melatonin (Melatonin 3 Mg Tablet) 6 mg PO BEDTIME PRN PRN Reason: Insomnia Nicotine (Nicotine 21 Mg Patch.Td24) 21 mg TRANSDERMA DAILY [facility] Non-Formulary Medication (Lenalidomide [Revlimid]) 15 mg PO DAILY [facility] Ondansetron HCl (Ondansetron Hcl 4 Mg/2 Ml Vial) 4 mg IVPUSH Q8H PRN PRN Reason: Nausea and Vomiting Last Admin: 02/23/22 02:57 Dose: 4 mg Documented By: MYESHA Senna (Sennosides 8.6 Mg Tablet) 17.2 mg PO BEDTIME PRN PRN Reason: Constipation Sertraline HCl (Sertraline Hcl 25 Mg Tablet) 25 mg PO DAILY [facility] Last Admin: 02/23/22 09:11 Dose: 25 mg Documented By: FABIOLA Sertraline HCl (Sertraline Hcl 100 Mg Tablet) 100 mg PO DAILY [facility] Last Admin: 02/23/22 09:11 Dose: 100 mg Documented By: FABIOLA Sodium Chloride (0.9 % Sodium Chloride Flush 3 Ml Syringe) [facility] Last Admin: 02/23/22 09:12 Dose: 3 ml Documented By: FABIOLA Tamsulosin HCl (Tamsulosin Hcl 0.4 Mg Capsule) 0.4 mg PO BEDTIME [facility] Last Admin: 02/22/22 20:39 Dose: 0.4 mg Documented By: MARY Torsemide (Torsemide 20 Mg Tablet) 40 mg PO DAILY [facility]; Protocol Last Admin: 02/23/22 09:11 Dose: 40 mg Documented By: FABIOLA Trimethoprim/Sulfamethoxazole (Sulfamethox/Trimeth 800/160 Tablet) 1 tab PO DAILY [facility] Last Admin: 02/23/22 09:10 Dose: 1 tab Documented By: FABIOLA Valacyclovir HCl (Valacyclovir Hcl 500 Mg Tablet) 500 mg PO DAILY [facility] Last Admin: 02/23/22 09:11 Dose: 500 mg Documented By: FABIOLA Labs CBC & Chem 7: 02/22/22 05:54 02/22/22 05:54 Labs: Laboratory Results - last 24 hr 02/22/22 02/23/22 02/23/22 19:47 07:13 11:23 POC Glucose 174 H 174 H 188 H Assessment and Plan (1) Acute on chronic kidney failure: Status: Acute (2) Hypoglycemia: Status: Acute Plan 46-year-old male with a past medical history of hypertension, hyperlipidemia, diabetes, CVA, CKD, CHF status post AICD, multiple myeloma, monoclonal gammopathy; presented to the hospital today with a chief complaint of low blood sugar.? Hypoglycemia:?seems? improving ,possible ? Likely in setting of poor oral intake.eating still very little,? Supportive care.? fs in 160's range. MAURI on CKD stage 3:? Patient's creatinine on presentation was 2.2.? Encouraged oral hydration and hydration. repeat bmp ?possible Pancreatitis:thought to be based? Lipase elevated to 300s.? ? Patient denies any alcohol use.? ?CT abdomen -negative . ? pain control, supportive care.continue nilda santoyo ananth if persistent symptoms may need Gi eval. will advance diet History of diabetes:? Insulin sliding scale.? Lantus 20 units. History of CHF:? Stable. ? continue home torsemide. History of anxiety / depression: Continue home sertraline, Klonopin. hx of Multiple Myeloma: has bony pain -on iv pain meds he said last chemo was 2 months back patient need to foloow up outpatient with oncology ?DVT prophylaxis: ? subQ heparin Code status:? Full code inaptient need :possible pancreatitis on iv pain meds ,hydration . hypoglycemia , mauri on ckd Quality Stroke Does the patient have a stroke diagnosis?: No VTE Prior VTE?: No VTE Risk Level:: Medical - moderate - high VTE Device Contraindication: Treatment Not Indicated VTE Drug Contraindication: N/A - Med Ordered
--- NOTE | 2022-02-23 13:06 | MHC.CM.PN ---
NO IMM REQUIRED [place] SPEAKING PATIENT LIVES WITH SP[place], [place] HCP ON FILE USES CANE, CPAP MACHINE, HAS A GLUCOSE SENSOR AND SHORT PEN NEEDLE REPORTS HE IS INDEPENDENT AT HOME AND COMMUNITY COVID VAX'D X2 PFIZER PCP: CESAR ARGUELLO TRANSPORT WILL BE BY SP[facility] D/C PLAN: HOME SELF-CARE
[2022-02-23 13:58] LABS: Anion Gap 14 (12-20); Blood Urea Nitrogen 18 mg/dL (9-16); Calcium 9.4 mg/dL (8.4-10.2); Carbon Dioxide 26 mmol/L (22-29); Chloride 105 mmol/L (96-108); Creatinine Clr Calc Pharmacy 48.8; Estimated Glomerular Filt Rate 40; Glucose Random 188 mg/dL (60-115); Lipase 46 U/L (8-78); Potassium 4.9 mmol/L (3.3-5.1); Sodium 140 mmol/L (135-145)
[2022-02-23 15:53] VITALS: BP 142/78; PULSE 70; RESP 18; TEMP 36.2; O2SAT 99
--- NOTE | 2022-02-23 16:01 | MHC.CLN ---
NUTRITION CONSULT FOR DECREASED INTAKE. CURRENT INTAKE LESS THAN 25% AT MEALS. DIET=DIABETIC 2000 KCALS. ADDING GLUCERNA BID TO PROVIDE ADDITIONAL 474 KCALS, 20 G PROTEIN.
[2022-02-23 16:38] LABS: Glucose, Whole Blood 195 mg/dL (60-115)
[2022-02-23 19:51] LABS: Glucose, Whole Blood 188 mg/dL (60-115)
[2022-02-23 20:00] VITALS: BP 149/76; PULSE 64; RESP 16; TEMP 36.7; O2SAT 100
[2022-02-23] MEDS: Insulin Glargine,Hum.rec.anlog 100 UNIT/ML 10 ML VIAL 20 UNIT SUBCUT (21:53)
[2022-02-23] MEDS: Tamsulosin HCL 0.4 MG CAPSULE PO (21:54)
[2022-02-23] MEDS: clonazePAM 0.5 MG TABLET PO (21:56)
[2022-02-23] MEDS: Atorvastatin Calcium 80 MG TABLET PO (21:56)
[2022-02-23] MEDS: Azelastine HCl Nasal 137 MCG/Spray 30 ML 2 SPRAY NOSTRIL-B (21:58)
[2022-02-23] MEDS: 0.9 % Sodium Chloride 1,000 ML 80 ML IVCONT (22:16)
[2022-02-24] VITALS: BP 153/78; PULSE 85; RESP 17; TEMP 36.4; O2SAT 97
[2022-02-24] MEDS: 0.9 % Sodium Chloride Flush 3 ML SYRINGE IVFLUSH ×3 (01:28→17:00)
[2022-02-24] MEDS: HYDROmorphone HCl 0.5 MG/0.5 ML SYRINGE IVPUSH ×6 (01:40→21:39)
[2022-02-24 04:00] VITALS: BP 146/74; PULSE 67; RESP 17; TEMP 36.4; O2SAT 98
[2022-02-24] MEDS: Heparin Sodium,Porcine 5,000 UNIT/ML VIAL 5000 UNIT SUBCUT ×3 (05:10→21:43)
[2022-02-24 07:28] VITALS: BP 150/78; PULSE 61; RESP 18; TEMP 36.3; O2SAT 99
[2022-02-24 07:32] LABS: Glucose, Whole Blood 143 mg/dL (60-115)
[2022-02-24] MEDS: carvediloL 12.5 MG TABLET PO (09:42)
[2022-02-24] MEDS: Nicotine 21 MG PATCH.TD24 TRANSDERMA (09:42)
[2022-02-24] MEDS: DULoxetine HCl 20 MG CAPSULE.DR PO ×2 (09:42→21:44)
[2022-02-24] MEDS: Sertraline HCL 100 MG TABLET PO (09:43)
[2022-02-24] MEDS: Famotidine 20 MG TABLET PO ×2 (09:43→21:44)
[2022-02-24] MEDS: Clopidogrel Bisulfate 75 MG TABLET PO (09:43)
[2022-02-24] MEDS: valACYclovir HCL 500 MG TABLET PO (09:43)
[2022-02-24] MEDS: Calcium + Vitamin D 250 MG TABLET PO ×3 (09:43→21:44)
[2022-02-24] MEDS: Sulfamethox/Trimeth 800/160 TABLET 1 TAB PO (09:43)
[2022-02-24] MEDS: Fenofibrate 160 MG TABLET PO (09:43)
[2022-02-24] MEDS: Sertraline HCL 25 MG TABLET PO (09:43)
[2022-02-24] MEDS: Torsemide 20 MG TABLET 40 MG PO (09:44)
[2022-02-24] MEDS: Aspirin 325 MG TABLET PO (09:44)
[2022-02-24] MEDS: Azelastine HCl Nasal 137 MCG/Spray 30 ML 2 SPRAY NOSTRIL-B ×2 (09:45→21:46)
[2022-02-24] MEDS: ondansetron HCL 4 MG/2 ML VIAL IVPUSH ×2 (09:56→21:57)
[2022-02-24 10:53] VITALS: BP 145/67; PULSE 62; RESP 18; TEMP 36.2; O2SAT 96
[2022-02-24 11:14] LABS: Glucose, Whole Blood 152 mg/dL (60-115)
[2022-02-24 14:58] VITALS: BP 172/94; PULSE 76; RESP 17; TEMP 36.5; O2SAT 100
--- NOTE | 2022-02-24 15:46 | P.PNIM_ITS ---
Subjective Subjective Date of Service: 02/24/22 Interval History: continues with vague abdominal pain Review of Systems denies chest pain Denies shortness of breath Admits to abdominal pain with nausea Denies fever chills Physical Exam Vital Signs: Vital Signs: Last Vital Signs Temp 97.7 F 02/24/22 14:58 Pulse 76 02/24/22 14:58 Resp 17 02/24/22 14:58 BP 172/94 H 02/24/22 14:58 Pulse Ox 100 02/24/22 14:58 O2 Del Method 02/24/22 14:58 BMI result Body Mass Index 26.6 Const: Other: no acute distress Resp: Other: clear to auscultation bilaterally no rales rhonchi or wheezes Cardio: Other: no S4; positive S1-S2; no S3 murmurs rubs or gallops GI: Other: mild mid epigastric tenderness without rebound Extrem: Other: no edema bilaterally Objective Data Active Medications Acetaminophen (Acetaminophen 325 Mg Tablet) 650 mg PO Q6H PRN PRN Reason: Pain, Mild (Pain Scale 1-3) Last Admin: 02/22/22 14:13 Dose: 650 mg Documented By: FABIOLA Albuterol Sulfate (Albuterol Sulfate 90 Mcg 8 Gm Inhaler) 2 puff INHALE Q4H PRN PRN Reason: Cough Amitriptyline HCl (Amitriptyline Hcl 25 Mg Tablet) 25 mg PO BEDTIME [facility] Last Admin: 02/23/22 21:54 Dose: Not Given Documented By: KARIE Non-Admin Reason: Patient Refused Aspirin (Aspirin 325 Mg Tablet) 325 mg PO DAILY [facility] Last Admin: 02/24/22 09:44 Dose: 325 mg Documented By: MARSHAL Atorvastatin Calcium (Atorvastatin Calcium 80 Mg Tablet) 80 mg PO BEDTIME [facility] Last Admin: 02/23/22 21:56 Dose: 80 mg Documented By: KARIE Azelastine HCl (Azelastine Hcl Nasal 137 Mcg/[place] 30 Ml) 2 spray NOSTRIL-B BID [facility] Last Admin: 02/24/22 09:45 Dose: 2 spray Documented By: MARSHAL Calcium Carbonate/Cholecalciferol (Calcium + Vitamin D 250 Mg Tablet) 250 mg PO TID [facility] Last Admin: 02/24/22 14:59 Dose: 250 mg Documented By: MARSHAL Carvedilol (Carvedilol 12.5 Mg Tablet) 12.5 mg PO DAILY [facility]; Protocol Last Admin: 02/24/22 09:42 Dose: 12.5 mg Documented By: MARSHAL Clonazepam (Clonazepam 0.5 Mg Tablet) 0.5 mg PO BEDTIME [facility] Last Admin: 02/23/22 21:56 Dose: 0.5 mg Documented By: KARIE Clopidogrel Bisulfate (Clopidogrel Bisulfate 75 Mg Tablet) 75 mg PO DAILY [facility] Last Admin: 02/24/22 09:43 Dose: 75 mg Documented By: MARSHAL Dextrose (Dextrose 50 % 25 Gm/50 Ml Syringe) 25 gm IVPUSH Q15M PRN; Protocol PRN Reason: per Hypoglycemia Standing Ord. Diphenhydramine HCl (Diphenhydramine Hcl 50 Mg/Ml Vial) 12.5 mg IVPUSH Q6H PRN PRN Reason: nausea Last Admin: 02/23/22 12:55 Dose: 12.5 mg Documented By: FABIOLA Duloxetine HCl (Duloxetine Hcl 20 Mg Capsule.Dr) 20 mg PO BID [facility] Last Admin: 02/24/22 09:42 Dose: 20 mg Documented By: MARSHAL Famotidine (Famotidine 20 Mg Tablet) 20 mg PO BID [facility] Last Admin: 02/24/22 09:43 Dose: 20 mg Documented By: MARSHAL Fenofibrate (Fenofibrate 160 Mg Tablet) 160 mg PO DAILY [facility] Last Admin: 02/24/22 09:43 Dose: 160 mg Documented By: MARSHAL Gabapentin (Gabapentin 300 Mg Capsule) 600 mg PO BEDTIME [facility] Last Admin: 02/23/22 21:55 Dose: Not Given Documented By: KARIE Non-Admin Reason: Patient Refused Gabapentin (Gabapentin 300 Mg Capsule) 300 mg PO DAILY [facility] Last Admin: 02/24/22 09:44 Dose: Not Given Documented By: MARSHAL Non-Admin Reason: Patient Refused Glucose (Glucose Gel 15 Gm Gel..Gram.) 15 gm PO Q15M PRN; Protocol PRN Reason: per Hypoglycemia Standing Ord. Heparin Sodium (Porcine) (Heparin Sodium,Porcine 5,000 Unit/Ml Vial) 5,000 unit SUBCUT Q8H [facility] Last Admin: 02/24/22 12:36 Dose: 5,000 unit Documented By: MARSHAL Hydromorphone HCl (Hydromorphone Hcl 0.5 Mg/0.5 Ml Syringe) 0.5 mg IVPUSH Q3H PRN; Protocol PRN Reason: Pain, Severe (Pain Scale 7-10) Last Admin: 02/24/22 12:35 Dose: 0.5 mg Documented By: MARSHAL Insulin Glargine (Insulin Glargine,Hum.Rec.Anlog 100 Unit/Ml 10 Ml Vial) 20 unit SUBCUT BEDTIME [facility] Last Admin: 02/23/22 21:53 Dose: 20 unit Documented By: KARIE Insulin Human Lispro (Insulin Lispro 100 Unit/Ml 3 Ml Vial) 0 unit SUBCUT QIDACHS [facility]; Protocol Last Admin: 02/24/22 12:36 Dose: Not Given Documented By: MARSHAL Non-Admin Reason: POOR PO Loperamide HCl (Loperamide Hcl 2 Mg Capsule) 2 mg PO Q4H PRN PRN Reason: Diarrhea Melatonin (Melatonin 3 Mg Tablet) 6 mg PO BEDTIME PRN PRN Reason: Insomnia Nicotine (Nicotine 21 Mg Patch.Td24) 21 mg TRANSDERMA DAILY [facility] Last Admin: 02/24/22 09:42 Dose: 21 mg Documented By: MARSHAL Non-Formulary Medication (Lenalidomide [Revlimid]) 15 mg PO DAILY [facility] Ondansetron HCl (Ondansetron Hcl 4 Mg/2 Ml Vial) 4 mg IVPUSH Q8H PRN PRN Reason: Nausea and Vomiting Last Admin: 02/24/22 09:56 Dose: 4 mg Documented By: MARSHAL Senna (Sennosides 8.6 Mg Tablet) 17.2 mg PO BEDTIME PRN PRN Reason: Constipation Sertraline HCl (Sertraline Hcl 25 Mg Tablet) 25 mg PO DAILY [facility] Last Admin: 02/24/22 09:43 Dose: 25 mg Documented By: MARSHAL Sertraline HCl (Sertraline Hcl 100 Mg Tablet) 100 mg PO DAILY [facility] Last Admin: 02/24/22 09:43 Dose: 100 mg Documented By: MARSHAL Sodium Chloride (0.9 % Sodium Chloride Flush 3 Ml Syringe) [address] [facility] Last Admin: 02/24/22 09:45 Dose: 3 ml Documented By: MARSHAL Tamsulosin HCl (Tamsulosin Hcl 0.4 Mg Capsule) 0.4 mg PO BEDTIME [facility] Last Admin: 02/23/22 21:54 Dose: 0.4 mg Documented By: KARIE Torsemide (Torsemide 20 Mg Tablet) 40 mg PO DAILY [facility]; Protocol Last Admin: 02/24/22 09:44 Dose: 40 mg Documented By: MARSHAL Trimethoprim/Sulfamethoxazole (Sulfamethox/Trimeth 800/160 Tablet) 1 tab PO DAILY [facility] Last Admin: 02/24/22 09:43 Dose: 1 tab Documented By: MARSHAL Valacyclovir HCl (Valacyclovir Hcl 500 Mg Tablet) 500 mg PO DAILY [facility] Last Admin: 02/24/22 09:43 Dose: 500 mg Documented By: MARSHAL Labs CBC & Chem 7: 02/22/22 05:54 02/23/22 13:12 Labs: Laboratory Results - last 24 hr 02/23/22 02/23/22 02/24/22 15:56 19:33 07:26 POC Glucose 195 H 188 H 143 H 02/24/22 10:55 POC Glucose 152 H Assessment and Plan (1) Diabetes mellitus: Status: Acute (2) Acute on chronic kidney failure: Status: Acute (3) Acute pancreatitis: Status: Acute (4) Chronic systolic CHF (congestive heart failure): Status: Acute Plan 46-year-old male with a past medical history of hypertension, hyperlipidemia, diabetes, CVA, CKD, CHF status post AICD, multiple myeloma, monoclonal gammopathy; presented to the hospital today with a chief complaint of low blood sugar.? 1.Hypoglycemia( in backdrop of DM 2) - normalized - continue coverage with lispro sliding scale - add back outpatient therapies when appropriate 2.Acute on chronic kidney failure (stage III) - improving with volume repletion -follow renals/divalents 3.Pancreatitis - slowly resolving - continue IV fluids/pain meds - advanced diet as tolerated 4.Systolic heart failure (by history) - continue outpatient therapies full code Lovenox requires ongoing hospitalization for IV volume repletion and treatment of pancreatitis Quality Stroke Does the patient have a stroke diagnosis?: No VTE Prior VTE?: No VTE Risk Level:: Medical - moderate - high VTE Device Contraindication: Treatment Not Indicated VTE Drug Contraindication: N/A - Med Ordered
[2022-02-24 16:00] LABS: Glucose, Whole Blood 217 mg/dL (60-115)
[2022-02-24] MEDS: Insulin Lispro 100 UNIT/ML 3 ML VIAL SUBCUT (16:58)
[2022-02-24 19:09] VITALS: BP 134/70; PULSE 62; RESP 17; TEMP 36.6; O2SAT 98
[2022-02-24 21:09] LABS: Glucose, Whole Blood 200 mg/dL (60-115)
[2022-02-24] MEDS: Insulin Glargine,Hum.rec.anlog 100 UNIT/ML 10 ML VIAL 20 UNIT SUBCUT (21:42)
[2022-02-24] MEDS: Atorvastatin Calcium 80 MG TABLET PO (21:44)
[2022-02-24] MEDS: clonazePAM 0.5 MG TABLET PO (21:44)
[2022-02-24] MEDS: Tamsulosin HCL 0.4 MG CAPSULE PO (21:44)
[2022-02-24] MEDS: Amitriptyline HCl 25 MG TABLET PO (21:45)
[2022-02-24] MEDS: Melatonin 3 MG TABLET 6 MG PO (21:57)
[2022-02-25] VITALS: BP 114/65; PULSE 70; RESP 18; TEMP 36.1; O2SAT 98
[2022-02-25] MEDS: 0.9 % Sodium Chloride Flush 3 ML SYRINGE IVFLUSH ×2 (00:20→09:54)
[2022-02-25] MEDS: HYDROmorphone HCl 0.5 MG/0.5 ML SYRINGE IVPUSH ×3 (03:10→14:11)
[2022-02-25 04:00] VITALS: BP 119/64; PULSE 68; RESP 18; TEMP 36.1; O2SAT 96
[2022-02-25] MEDS: Heparin Sodium,Porcine 5,000 UNIT/ML VIAL 5000 UNIT SUBCUT (06:03)
[2022-02-25 07:42] LABS: Glucose, Whole Blood 157 mg/dL (60-115)
[2022-02-25 07:51] VITALS: BP 114/64; PULSE 62; RESP 18; TEMP 36.6; O2SAT 97
[2022-02-25] MEDS: Sulfamethox/Trimeth 800/160 TABLET 1 TAB PO (09:53)
[2022-02-25] MEDS: Fenofibrate 160 MG TABLET PO (09:53)
[2022-02-25] MEDS: Aspirin 325 MG TABLET PO (09:53)
[2022-02-25] MEDS: carvediloL 12.5 MG TABLET PO (09:53)
[2022-02-25] MEDS: Torsemide 20 MG TABLET 40 MG PO (09:53)
[2022-02-25] MEDS: Calcium + Vitamin D 250 MG TABLET PO (09:53)
[2022-02-25] MEDS: Famotidine 20 MG TABLET PO (09:53)
[2022-02-25] MEDS: Nicotine 21 MG PATCH.TD24 TRANSDERMA (09:54)
[2022-02-25] MEDS: valACYclovir HCL 500 MG TABLET PO (09:54)
[2022-02-25] MEDS: Gabapentin 300 MG CAPSULE PO (09:54)
[2022-02-25] MEDS: Sertraline HCL 100 MG TABLET PO (09:54)
[2022-02-25] MEDS: Clopidogrel Bisulfate 75 MG TABLET PO (09:54)
[2022-02-25] MEDS: Sertraline HCL 25 MG TABLET PO (09:54)
[2022-02-25] MEDS: DULoxetine HCl 20 MG CAPSULE.DR PO (09:54)
[2022-02-25] MEDS: Azelastine HCl Nasal 137 MCG/Spray 30 ML 2 SPRAY NOSTRIL-B (10:04)
[2022-02-25] MEDS: ondansetron HCL 4 MG/2 ML VIAL IVPUSH (10:38)
[2022-02-25 10:54] VITALS: BP 140/76; PULSE 67; RESP 18; TEMP 36.1; O2SAT 96
[2022-02-25 11:25] LABS: Glucose, Whole Blood 154 mg/dL (60-115)
--- NOTE | 2022-02-25 14:00 | MHC.CM.PN ---
PATIENT IS DC HOME TODAY - SELF CARE. RN AWARE OF PLAN.
--- NOTE | 2022-02-25 14:05 | P.DS_ITS ---
DS: Providers Provider Date of Service: 02/25/22 Date of admission: 02/21/22 23:20 Date of discharge: 02/25/22 Primary care physician: Guido Burch III, MD DS: Diagnosis Discharge Diagnosis (1) Diabetes mellitus: Status: Acute (2) Acute on chronic kidney failure: Status: Acute (3) Acute pancreatitis: Status: Acute (4) Chronic systolic CHF (congestive heart failure): Status: Acute DS: Summary Hospital Course Hospital Course: 46-year-old male with a past medical history of hypertension, hyperlipidemia, diabetes, CVA, CKD, CHF status post AICD, multiple myeloma, monoclonal gammopathy; presented to the hospital today with a chief complaint of low blood sugar.? Patient reports that for the past 1 week he has been not feeling well, having episodes of nausea vomiting and abdominal discomfort, abdominal pain is diffuse in nature, has been having poor oral intake.? Denies any fevers and chills.? Denies any diarrhea.? Denies any cough fevers sputum production. Patient denies any chest pain or palpitations.? Patient mentions that he was recently started on Cymbalta and Klonopin.? Review of all other systems is negative except mentioned above ER course: Per ER team patient fingerstick glucose is or improved; lab showed mildly elevated creatinine compared to prior values of 1.7; lipase elevated; noted to have mild diffuse abdominal tenderness; concerning for acute pancreatitis.? Admitted for further management. Hospital Course admitted to general medical floor. No concern for pancreatitis as patient was totally asymptomatic without abdomen pain. When discussed with patient was in extreme pain and had no appetite yet continued his insulin and oral regimen for his diabetes. In the hospital a sugars responded nicely and with pain control he resumed his diet. At this point, he states his pain is poorly controlled since the cessation of gabapentin. Will send on short course of oxycodone and resume amitriptyline at HS as patient states lack of sleep is contributing to his problems. He can follow-up with his PCP for further adjustment of his insulin regimen based on his diet. (pain generator.... multiple myeloma with immuno proliferative neoplasms ) Time Spent with Patient Time attestation: Total time spent providing and/or coordinating discharge services: Discharge coordination time: Greater than 30 minutes Quality: Safe Use of Opioids Does Pt have an Active Cancer Diagnosis on the Problem List?: Yes Opioid Measure Date for CMS Report: 01/26/22 Opioid Measure Time for [facility] Report: 14:09 Quality: Stroke Does the patient have a stroke diagnosis?: No Physical Exam Vital Signs: Vital Signs: Last Vital Signs Temp 97.0 F 02/25/22 10:54 Pulse 67 02/25/22 10:54 Resp 18 02/25/22 10:54 BP 140/76 H 02/25/22 10:54 Pulse Ox 96 02/25/22 10:54 O2 Del Method 02/25/22 10:54 BMI result Body Mass Index 26.6 Const: Other: no acute distress Resp: Other: clear to auscultation bilaterally no rales rhonchi or wheezes Cardio: Other: no S4; positive S1-S2; no S3 murmurs rubs or gallops GI: Other: mild mid epigastric tenderness without rebound Extrem: Other: no edema bilaterally DS: Data Data Completed and Pending Completed studies during hospitalization [Text1]: Procedures Transfusion of Nonautologous Red Blood Cells into Peripheral Vein, Percutaneous Approach (11/27/21) Labs on day of discharge: Laboratory Results - last 24 hr 02/24/22 02/24/22 02/25/22 15:52 21:01 07:24 POC Glucose 217 H 200 H 157 H 02/25/22 10:52 POC Glucose 154 H Discharge Plan Discharge Patient Disposition: Home, Self-Care Discharge Diagnosis: Hypoglycemia Referrals: Guido Burch III, MD [Primary Care Provider] - 1 Week Discharge Medications: New amitriptyline 25 mg Tablet 25 mg PO BEDTIME Qty: 30 0RF oxycodone 10 mg tablet 10 mg PO Q6H MDD 30 PRN (Reason: pain (scale score 7-10)) Qty: 30 0RF Rx Instructions: Partial Fill upon patient request. Continued torsemide 20 mg tablet 40 mg PO DAILY Qty: 60 1RF sertraline 100 mg tablet 100 mg PO DAILY Rx Instructions: one 25 mg tab + one 100 mg tab = 125 mg daily dose calcium carbonate-vitamin D3 [Calcium 500 + D] 500 mg-10 mcg (400 unit) Tablet 1 tab PO TID Qty: 90 4RF gabapentin 300 mg Capsule 600 mg PO BEDTIME azelastine 137 mcg (0.1 %) Aerosol,[place] 2 spray INTRANASAL BID insulin lispro [Humalog KwikPen Insulin] 100 unit/mL Insulin Pen 10 - 18 unit SUBCUT TID (DME) pen needle, diabetic [BD Ultra-Fine Short Pen Needle] 31 gauge x 5/16 needle subcut QID fenofibrate nanocrystallized 145 mg tablet 1 tab PO DAILY clonazepam 0.5 mg tablet 1 tab PO BEDTIME valacyclovir 500 mg tablet 1 tab PO DAILY sulfamethoxazole-trimethoprim 800-160 mg tablet 1 tab PO MOWEFR@09 tamsulosin 0.4 mg capsule 1 cap PO BEDTIME duloxetine 20 mg capsule,delayed release(DR/EC) 40 mg PO BID loperamide 2 mg Capsule 2 mg PO Q4H PRN (Reason: Diarrhea) Qty: 30 0RF lenalidomide [Revlimid] 15 mg Capsule 15 mg PO DAILY Qty: 21 4RF Rx Instructions: Take on D1-14 of Velcade Schedule, swallow whole with glass of water; do not open, crush, chew , break, or dissolve aspirin 325 mg tablet 1 tab PO DAILY carvedilol 12.5 mg tablet 12.5 mg PO DAILY clopidogrel 75 mg tablet 75 mg PO DAILY atorvastatin 80 mg tablet 80 mg PO BEDTIME albuterol sulfate 90 mcg/actuation HFA aerosol inhaler 2 puff inhalation Q4H PRN (Reason: Cough) pantoprazole 40 mg tablet,delayed release (DR/EC) 40 mg PO DAILY sertraline 25 mg tablet 25 mg PO DAILY Rx Instructions: one 25 mg tab + one 100 mg tab = 125 mg daily dose gabapentin [Neurontin] 300 mg capsule 300 mg PO DAILY Lantus Solostar U-100 Insulin 100 unit/mL (3 mL) insulin pen 47 unit subcut QAM nicotine 21 mg/24 hr patch 24 hour 1 patch topical DAILY (DME) FreeStyle [place] 14 Day Sensor Kit See Rx Instructions topical Q2W Qty: 1 Rx Instructions: As directed Discharge Orders: Discharge Order (Routine); Ordered 02/25/22 Ordered By: Christiano Almeida Diet: Advance to usual diet Activity on Discharge: As tolerated Stand Alone Forms: Patient Portal Discharge page Care Plan Goals: utilize oxycodone for pain. Resume amitriptyline at HS for sleep Health Concerns: if appetite is poor should hold your insulin and follow your sugars. Call your doctor with all your point cares Plan of Treatment: follow-up with your PCP in 2 weeks to adjust your diabetic medicines based on your diet Assessment: see discharge summary
== END 2022-02-25 15:11 | disposition home or self-care (01) | DRG 420 ==
LOC: HO.ED 23:24 → HO.EDOVER 23:39 → HO.S3 02-22 07:29
PROVIDERS: Internal Medicine; Admitting Provider Hospitalist; Emergency Provider Emergency Medicine; PCP Internal Medicine; Visit Provider Hospitalist
DX: E11.649 Type 2 diabetes mellitus with hypoglycemia without coma (principal); K85.90 Acute pancreatitis without necrosis or infection, unspecified; N17.9 Acute kidney failure, unspecified; C90.00 Multiple myeloma not having achieved remission; E11.22 Type 2 diabetes mellitus with diabetic chronic kidney disease; I25.10 Atherosclerotic heart disease of native coronary artery without angina pectoris; E78.5 Hyperlipidemia, unspecified; I25.5 Ischemic cardiomyopathy; I12.9 Hypertensive chronic kidney disease with stage 1 through stage 4 chronic kidney disease, or unspecified chronic kidney disease; N18.30 Chronic kidney disease, stage 3 unspecified; F41.9 Anxiety disorder, unspecified; D47.2 Monoclonal gammopathy; I50.22 Chronic systolic (congestive) heart failure; G89.3 Neoplasm related pain (acute) (chronic); Z20.822 Contact with and (suspected) exposure to COVID-19; Z95.1 Presence of aortocoronary bypass graft; Z95.810 Presence of automatic (implantable) cardiac defibrillator; Z88.8 Allergy status to other drugs, medicaments and biological substances; Z79.4 Long term (current) use of insulin; Z79.02 Long term (current) use of antithrombotics/antiplatelets; Z79.82 Long term (current) use of aspirin; Z79.899 Other long term (current) drug therapy
CPT/HCPCS: 36415; 71045; 74176; 80048; 80076; 81003; 82947; 83036; 83690; 83880; 84484; 85025; 87635; 93005; 96365; 96366; 96375; 99285; J1170; J1200; J1650; J2270; J2405

== ENCOUNTER 2022-06-21 09:32 | Outpatient (REF) | payer OTHER, SELFPAY ==
--- NOTE | ~2022-06-21 | XR_ITS ---
EXAMINATION: XR SKELETAL SURVEY CLINICAL INFORMATION: Follow-up lytic lesions in the bone. Multiple myeloma. COMPARISON: Most recent CT abdomen/pelvis dated 02/22/2022 and PET/CT dated 04/28/2021. TECHNIQUE: Lateral view of the skull. Lateral views of the cervical, thoracic, and lumbar spine. AP views of the thoracic and lumbar spine. AP view of the chest, abdomen, and pelvis. AP views of the upper and lower extremities. FINDINGS: No significant lytic or blastic osseous lesion. No acute fracture or dislocation. Degenerative disc disease at C4-C6 with more mild degenerative disc disease throughout the thoracic and lumbar spine. Sternal wires and left chest wall electronic device. Surgical clips within the mediastinum and right upper quadrant. Vascular calcifications within the pelvis. XR/XR bone survey IMPRESSION: No concerning lytic or blastic osseous lesion.
== END 2022-06-21 09:33 | disposition home or self-care (01) ==
LOC: HO.XRAY 09:32
PROVIDERS: PCP Internal Medicine; Visit Provider Internal Medicine Medical Oncology
DX: C90.00 Multiple myeloma not having achieved remission (principal)
CPT/HCPCS: 77075

== ENCOUNTER → 2022-06-23 12:04 | Outpatient (BNVA) | payer OTHER, SELFPAY | PROVIDERS: PCP Internal Medicine; Visit Provider Internal Medicine Cardiovascular Disease | DX: I95.9 Hypotension, unspecified (principal); I50.22 Chronic systolic (congestive) heart failure; Z45.02 Encounter for adjustment and management of automatic implantable cardiac defibrillator; Z79.899 Other long term (current) drug therapy | CPT/HCPCS: 99212 ==

== ENCOUNTER 2022-10-27 23:06 | Emergency (ER) | payer OTHER, SELFPAY ==
[2022-10-27 23:25] VITALS: BP 177/94; PULSE 92; RESP 16; TEMP 37; O2SAT 100; BMI 25.8
[2022-10-27 23:46] LABS: Hematocrit 32.3 % (42.0-52.0); Hemoglobin 10.6 g/dl (14.0-18.0); Mean Corpuscular HGB Conc 32.8 g/dl (31.0-36.0); Mean Corpuscular Hemoglobin 29.5 pg (27.0-33.0); Platelet Count 349 X10*3/uL (160-400); Red Blood Count 3.59 X10*6/uL (4.60-5.80); Red Cell Distribution Width 13.2 % (11.0-16.0); White Blood Count 15.6 X10*3/uL (4.8-10.8)
[2022-10-27 23:53] VITALS: BP 142/68; PULSE 74; RESP 16; TEMP 36.4; O2SAT 98
[2022-10-28 00:07] LABS: Alanine Aminotransferase 19 U/L (0-40); Alkaline Phosphatase 53 U/L (39-117); Anion Gap 19 (12-20); Aspartate Amino Transferase 30 U/L (5-37); Bilirubin Total 0.3 mg/dL (0.0-1.0); Blood Urea Nitrogen 25 mg/dL (9-16); Calcium 10.1 mg/dL (8.4-10.2); Carbon Dioxide 20 mmol/L (22-29); Chloride 104 mmol/L (96-108); Creatinine Clr Calc Pharmacy 37.8; Estimated Glomerular Filt Rate 32; Glucose Random 208 mg/dL (60-115); Lipase 89 U/L (8-78); Potassium 4.5 mmol/L (3.3-5.1); Sodium 138 mmol/L (135-145); Total Protein 7.7 g/dL (6.5-8.0)
[2022-10-28] MEDS: 0.9 % Sodium Chloride 1,000 ML 999 ML IV (00:49)
[2022-10-28] MEDS: diphenhydrAMINE HCL 50 MG/ML VIAL 25 MG IVPUSH (00:53)
[2022-10-28] MEDS: LORazepam 2 MG/ML VIAL IVPUSH (00:54)
[2022-10-28] MEDS: Prochlorperazine Edisylate 10 MG/2 ML VIAL IVPUSH (00:56)
[2022-10-28] MEDS: Dicyclomine HCl 10 MG CAPSULE 20 MG PO (00:58)
[2022-10-28 01:00] VITALS: BP 168/95; PULSE 77; RESP 19; O2SAT 95
[2022-10-28 01:53] VITALS: BP 104/48; PULSE 79; RESP 16; TEMP 36.2; O2SAT 98
--- NOTE | 2022-10-28 03:05 | ED.ABDPAIN ---
HPI - Abdominal Pain General Chief Complaint: Abdominal Pain Stated Complaint: n/v/d, stomach pain Time Seen by Provider: 10/28/22 00:11 Source: patient Mode of arrival: ambulatory Limitations: no limitations History of Present Illness HPI narrative: Patient still multiple myeloma not on any treatment at this time had multiple episodes of vomiting more than 10 times and same number of watery diarrhea with abdominal cramps no fever no chills no blood in the stool no other family member sick no intake of any seafood Related Data Home Medications Medication Instructions Recorded Confirmed albuterol sulfate 90 mcg/actuation 2 puff inhalation Q4H PRN Cough 04/25/20 10/05/22 aerosol inhaler atorvastatin 80 mg tablet 80 mg PO BEDTIME 04/25/20 10/05/22 clopidogrel 75 mg tablet 75 mg PO DAILY 04/25/20 10/05/22 insulin glargine 100 unit/mL (3 47 unit subcut QAM 04/25/20 10/05/22 mL) subcutaneous pen (Lantus Solostar U-100 Insulin) pantoprazole 40 mg tablet,delayed 40 mg PO DAILY 04/25/20 10/05/22 release sertraline 25 mg tablet 25 mg PO DAILY 04/25/20 10/05/22 azelastine 137 mcg (0.1 %) nasal 2 spray intranasal BID 02/04/21 10/05/22 spray aerosol fenofibrate nanocrystallized 145 1 tab PO DAILY 02/04/21 10/05/22 mg tablet insulin lispro 100 unit/mL 10 - 18 unit subcut TID 02/04/21 10/05/22 subcutaneous pen (Humalog KwikPen (U-100) Insulin) pen needle, diabetic 31 gauge x 02/04/21 10/05/22 5/16 (BD Ultra-Fine Short Pen Needle) sertraline 100 mg tablet 100 mg PO DAILY 05/25/21 10/05/22 flash glucose sensor (FreeStyle #1 ea 11/06/21 10/05/22 [place]ille 14 Day Sensor kit) nicotine 21 mg/24 hr daily 1 patch topical DAILY 12/31/21 10/05/22 transdermal patch clonazepam 0.5 mg tablet 1 tab PO BEDTIME 02/22/22 10/05/22 duloxetine 20 mg capsule,delayed 40 mg PO BID 02/22/22 10/05/22 release sulfamethoxazole 800 1 tab PO MOWEFR@09 02/22/22 10/05/22 mg-trimethoprim 160 mg tablet docusate sodium 100 mg capsule 100 mg PO BID 03/29/22 10/05/22 gabapentin 300 mg capsule 300 mg PO TID 03/29/22 10/05/22 nicotine (polacrilex) 2 mg gum 2 mg PO DAILY 03/29/22 10/05/22 Previous Rx's Medication Instructions Recorded loperamide 2 mg capsule 2 mg PO Q4H PRN Diarrhea #30 caps 09/01/21 amitriptyline 25 mg tablet 25 mg PO BEDTIME #30 tabs 02/25/22 oxycodone 10 mg tablet 10 mg PO Q6H PRN pain (scale score 02/25/22 7-10) #30 tabs aspirin 325 mg tablet 325 mg PO DAILY #90 tabs 03/06/22 ondansetron 8 mg disintegrating 8 mg PO Q8H #60 tabs 03/09/22 tablet tamsulosin 0.4 mg capsule 0.4 mg PO BEDTIME 90 days #90 caps 04/02/22 lenalidomide 15 mg capsule 15 mg PO DAILY #21 caps 04/13/22 (Revlimid) valacyclovir 500 mg tablet 1 tab PO DAILY #60 tabs 05/06/22 midodrine 2.5 mg tablet 2.5 mg PO TID #90 tabs 06/23/22 torsemide 20 mg tablet 20 mg PO .everyother #45 tabs 07/22/22 lidocaine 5 % topical patch 1 patch topical DAILY #30 ea 08/10/22 (Lidoderm) calcium carbonate 500 mg-vitamin 1 tab PO TID #90 tabs 10/05/22 D3 10 mcg (400 unit) tablet (Calcium 500 + D) lorazepam 1 mg tablet (Ativan) 1 mg PO BID PRN anxiety #14 tabs 10/28/22 Allergies Allergy/AdvReac Type Severity Reaction Status Date / Time egg [EGG] Allergy Severe NAUSEA, Verified 10/05/22 10:56 ITCHY THROAT meperidine [From DEMEROL] Allergy Unknown AGITATION Verified 10/05/22 10:56 Review of Systems Review of Systems Yes all other systems are reviewed and are negative PMFSH Past Medical History Medical History Bladder pain CAD (coronary artery disease) Chronic systolic CHF (congestive heart failure) CKD (chronic kidney disease) CVA (cerebral vascular accident) Diabetes mellitus HLD (hyperlipidemia) HTN (hypertension) ICD (implantable cardioverter-defibrillator) in place Ischemic cardiomyopathy Monoclonal gammopathy Multiple myeloma Multiple myeloma Surgical History Hx of cardiac cath (~2017) S/P CABG x 2 (~02/2019) Family History Family History Father Esophageal cancer Diabetes mellitus Mother Diabetes mellitus Brother Diabetes mellitus Sister Diabetes mellitus Cervical cancer Social History Social History Household Members: Spouse and Children Housing: House Are you a primary healthcare business analyst to a significant other at home: No Do you presently have visiting nurse or other home services: No Alcohol intake: never Patient Tobacco Use Status: Current someday Tobacco user Smoking Start Date: 03/23/21 Tobacco use type: Cigarette Substance Use Type: Marijuana Advance Directives: Yes Advance Directives on File: Yes Advance Directives Date on File: 08/31/21 service: No Current occupational status: disabled Physical Exam ED Vital Signs: Vital Signs - 24 hr 10/27/22 23:25 10/27/22 23:53 10/28/22 01:00 Temperature 98.6 F 97.5 F Pulse Rate 92 74 77 Respiratory Rate 16 16 19 Blood Pressure 177/94 H 142/68 H 168/95 H Pulse Oximetry 100 98 95 Oxygen Delivery Method Room Air Room Air Room Air 10/28/22 01:53 10/28/22 04:00 10/28/22 06:00 Temperature 97.2 F 98.3 F 98.1 F Pulse Rate 79 86 85 Respiratory Rate 16 16 16 Blood Pressure 104/48 L 119/69 104/49 L Pulse Oximetry 98 98 95 Oxygen Delivery Method Room Air Room Air BMI result Body Mass Index 25.8 Appearance: Alert. Oriented X3. Moderate distress anxious Eyes: PERRLA, No Nystagmus no pallor or icterus ENT: Pharynx normal. Oral Mucosa moist Neck: Normal inspection. Neck supple. CVS: Normal heart rate and rhythm. Pulses normal. Respiratory: No respiratory distress. Equal air entry bilateral, no wheezing/rales/rhonchi Abdomen: Soft diffuse tenderness no focal tenderness or rebound tenderness or guarding. Bowel sounds are present, no mass palpable, no CVA tenderness Skin: Skin warm and dry. Normal skin color. Normal skin turgor. Extremities: No lower extremity edema. No calf tenderness Neuro: Oriented X 3. No motor deficit. Medical Decision Making Medical Decision Making [facility] Narrative: Patient with gastroenteritis with history of cyclic vomiting syndrome had leukocytosis secondary to volume depletion feeling much better after IV fluids and medications Lab Data [facility] Lab Attestation statement: I reviewed the patient's lab results. 10/27/22 23:22 10/27/22 23:22 Labs: Lab Results 10/27/22 10/27/22 10/28/22 Range/Units 23:22 23:22 04:10 WBC 15.6 H (4.8-10.8) X10*3/uL RBC 3.59 L (4.60-5.80) X10*6/uL Hgb 10.6 L (14.0-18.0) g/dl Hct 32.3 L (42.0-52.0) % MCV 90.0 (80.0-98.0) fL MCH 29.5 (27.0-33.0) pg MCHC 32.8 (31.0-36.0) g/dl RDW 13.2 (11.0-16.0) % Plt Count 349 (160-400) X10*3/uL MPV 10.0 (9.4-12.4) fL Absolute Nucleated RBC 0.000 (0.0-0.012) X10*3/uL Nucleated RBC % (auto) 0.0 (0.0-0.2) /100WBC Sodium 138 (135-145) mmol/L Potassium 4.5 (3.3-5.1) mmol/L Chloride 104 (96-108) mmol/L Carbon Dioxide 20 L (22-29) mmol/L Anion Gap 19 (12-20) BUN 25 H (9-16) mg/dL Creatinine 2.23 H (0.5-1.4) mg/dL Estim Creat Clear Calc 37.8 Estimated GFR 32 Random Glucose 208 H (60-115) mg/dL Calcium 10.1 D (8.4-10.2) mg/dL Total Bilirubin 0.3 (0.0-1.0) mg/dL AST 30 (5-37) U/L ALT 19 (0-40) U/L Alkaline Phosphatase 53 (39-117) U/L Total Protein 7.7 (6.5-8.0) g/dL Albumin 5.0 (3.5-5.0) g/dL Lipase 89 H (8-78) U/L Urine Color Yellow Urine Appearance Clear Urine pH 8.0 (5.0-9.0) Ur Specific [place] 1.010 (1.005-1.025) Urine Protein Negative (Neg-Trace) mg/dL Urine Glucose (UA) 100 H (Negative) mg/dL Urine Ketones Negative (Negative) mg/dL Urine Blood Negative (Negative) Urine Nitrite Negative (Negative) Ur Leukocyte Esterase Negative (Negative) Urine RBC 0-2 (0-2) /HPF Urine WBC 0-5 (0-5) /HPF Ur Squamous Epith Cells 0-2 (0-2) /HPF Urine Bacteria None Seen (None Seen) Hyaline Casts 0-2 (0-2) /LPF Urine Opiates Screen (Not Detect) Urine Fentanyl Screen (Not Detect) Ur Barbiturates Screen (Not Detect) Ur Phencyclidine Scrn (Not Detect) Ur Amphetamines Screen (Not Detect) U Benzodiazepines Scrn (Not Detect) Urine Cocaine Screen (Not Detect) U Marijuana (THC) Screen (Not Detect) 10/28/22 Range/Units 04:10 WBC (4.8-10.8) X10*3/uL RBC (4.60-5.80) X10*6/uL Hgb (14.0-18.0) g/dl Hct (42.0-52.0) % MCV (80.0-98.0) fL MCH (27.0-33.0) pg MCHC (31.0-36.0) g/dl RDW (11.0-16.0) % Plt Count (160-400) X10*3/uL MPV (9.4-12.4) fL Absolute Nucleated RBC (0.0-0.012) X10*3/uL Nucleated RBC % (auto) (0.0-0.2) /100WBC Sodium (135-145) mmol/L Potassium (3.3-5.1) mmol/L Chloride (96-108) mmol/L Carbon Dioxide (22-29) mmol/L Anion Gap (12-20) BUN (9-16) mg/dL Creatinine (0.5-1.4) mg/dL Estim Creat Clear Calc Estimated GFR Random Glucose (60-115) mg/dL Calcium (8.4-10.2) mg/dL Total Bilirubin (0.0-1.0) mg/dL AST (5-37) U/L ALT (0-40) U/L Alkaline Phosphatase (39-117) U/L Total Protein (6.5-8.0) g/dL Albumin (3.5-5.0) g/dL Lipase (8-78) U/L Urine Color Urine Appearance Urine pH (5.0-9.0) Ur Specific [place] (1.005-1.025) Urine Protein (Neg-Trace) mg/dL Urine Glucose (UA) (Negative) mg/dL Urine Ketones (Negative) mg/dL Urine Blood (Negative) Urine Nitrite (Negative) Ur Leukocyte Esterase (Negative) Urine RBC (0-2) /HPF Urine WBC (0-5) /HPF Ur Squamous Epith Cells (0-2) /HPF Urine Bacteria (None Seen) Hyaline Casts (0-2) /LPF Urine Opiates Screen Not Detected (Not Detect) Urine Fentanyl Screen Not Detected (Not Detect) Ur Barbiturates Screen Not Detected (Not Detect) Ur Phencyclidine Scrn Not Detected (Not Detect) Ur Amphetamines Screen Not Detected (Not Detect) U Benzodiazepines Scrn Not Detected (Not Detect) Urine Cocaine Screen Not Detected (Not Detect) U Marijuana (THC) Screen POSITIVE H (Not Detect) Medications Administered Discontinued Medications Generic Name Dose Route Start Last Admin Trade Name Freq PRN Reason Stop Dose Admin Dicyclomine HCl 20 mg 10/28/22 00:44 10/28/22 00:58 Dicyclomine Hcl 10 Mg Capsule PO 10/28/22 00:45 20 mg ONCE ONE Administration Diphenhydramine HCl 25 mg 10/28/22 00:44 10/28/22 00:53 Diphenhydramine Hcl 50 Mg/Ml Vial IVPUSH 10/28/22 00:45 25 mg ONCE ONE Administration Sodium Chloride 1,000 mls @ 999 mls/hr 10/28/22 00:44 10/28/22 00:49 Ns IV 10/28/22 01:44 999 mls/hr .Q1H1M ONE Administration Lorazepam 2 mg 10/28/22 00:44 10/28/22 00:54 Lorazepam 2 Mg/Ml Vial IVPUSH 10/28/22 00:45 2 mg ONCE ONE Administration Prochlorperazine Edisylate 10 mg 10/28/22 00:44 10/28/22 00:56 Prochlorperazine Edisylate 10 Mg/2 Ml Vial IVPUSH 10/28/22 00:45 10 mg ONCE ONE Administration Discharge Plan Discharge Clinical Impression: Cyclic vomiting syndrome, Cannabis abuse with cannabis-induced anxiety disorder Patient Disposition: Home, Self-Care Instructions: Acute Nausea and Vomiting (ED), Cannabis Abuse (ED) Additional Instructions: Drink plenty of fluids Take nausea medication as prescribed by your PCP Ativan for increased anxiety Prescriptions: New lorazepam [Ativan] 1 mg tablet 1 mg PO BID PRN (Reason: anxiety) Qty: 14 0RF No Action aspirin 325 mg Tablet 325 mg PO DAILY Qty: 90 6RF torsemide 20 mg tablet 20 mg PO .everyother Qty: 45 3RF sertraline 100 mg tablet 100 mg PO DAILY Rx Instructions: one 25 mg tab + one 100 mg tab = 125 mg daily dose ondansetron 8 mg Tablet,Disintegrating 8 mg PO Q8H Qty: 60 6RF lenalidomide [Revlimid] 15 mg Capsule 15 mg PO DAILY Qty: 21 3RF Rx Instructions: swallow whole with glass of water; do not open, crush, chew , break, or dissolve. AUTH NO: [id number]. valacyclovir 500 mg tablet 1 tab PO DAILY Qty: 60 11RF lidocaine [Lidoderm] 5 % Adhesive Patch,Medicated 1 patch TOPICAL DAILY Qty: 30 2RF Rx Instructions: leave on most painful area for up to 12 hrs calcium carbonate-vitamin D3 [Calcium 500 + D] 500 mg-10 mcg (400 unit) Tablet 1 tab PO TID Qty: 90 4RF azelastine 137 mcg (0.1 %) Aerosol,[place] 2 spray INTRANASAL BID insulin lispro [Humalog KwikPen Insulin] 100 unit/mL Insulin Pen 10 - 18 unit SUBCUT TID (DME) pen needle, diabetic [BD Ultra-Fine Short Pen Needle] 31 gauge x 5/16 needle subcut QID fenofibrate nanocrystallized 145 mg tablet 1 tab PO DAILY clonazepam 0.5 mg tablet 1 tab PO BEDTIME sulfamethoxazole-trimethoprim 800-160 mg tablet 1 tab PO MOWEFR@09 duloxetine 20 mg capsule,delayed release(DR/EC) 40 mg PO BID amitriptyline 25 mg Tablet 25 mg PO BEDTIME Qty: 30 0RF oxycodone 10 mg tablet 10 mg PO Q6H MDD 30 PRN (Reason: pain (scale score 7-10)) Qty: 30 0RF Rx Instructions: Partial Fill upon patient request. loperamide 2 mg Capsule 2 mg PO Q4H PRN (Reason: Diarrhea) Qty: 30 0RF clopidogrel 75 mg tablet 75 mg PO DAILY atorvastatin 80 mg tablet 80 mg PO BEDTIME albuterol sulfate 90 mcg/actuation HFA aerosol inhaler 2 puff inhalation Q4H PRN (Reason: Cough) pantoprazole 40 mg tablet,delayed release (DR/EC) 40 mg PO DAILY sertraline 25 mg tablet 25 mg PO DAILY Rx Instructions: one 25 mg tab + one 100 mg tab = 125 mg daily dose Lantus Solostar U-100 Insulin 100 unit/mL (3 mL) insulin pen 47 unit subcut QAM nicotine 21 mg/24 hr patch 24 hour 1 patch topical DAILY (DME) FreeStyle [place] 14 Day Sensor Kit See Rx Instructions topical Q2W Qty: 1 Rx Instructions: As directed nicotine (polacrilex) 2 mg gum 2 mg PO DAILY gabapentin 300 mg capsule 300 mg PO TID docusate sodium 100 mg capsule 100 mg PO BID tamsulosin 0.4 mg capsule 0.4 mg PO BEDTIME 90 Days Qty: 90 3RF midodrine 2.5 mg tablet 2.5 mg PO TID Qty: 90 5RF Rx Instructions: With meals, do not give last dose of day after 6PM or within 4 hrs of bedtime
[2022-10-28 04:00] VITALS: BP 119/69; PULSE 86; RESP 16; TEMP 36.8; O2SAT 98
[2022-10-28 04:15] LABS: Appearance Urine Clear; Color Urine Yellow; Glucose Urine UA 100 mg/dL (Negative); Leukocyte Esterase Urine Negative (Negative); Nitrite Urine Negative (Negative); Urine Blood Negative (Negative); Urine Ketones Negative (Negative); Urine Protein Negative (Neg-Trace)
[2022-10-28 04:17] LABS: Bacteria Urine None Seen (None Seen); Hyaline Casts Urine 0-2 /LPF (0-2); RBC Urine 0-2 /HPF (0-2); Squamous Epithelial Cell Urine 0-2 /HPF (0-2); WBC Urine 0-5 /HPF (0-5)
--- NOTE | 2022-10-28 04:33 | PC.NURSE ---
Pt given crackers and water for PO challenge.
[2022-10-28 05:33] LABS: Amphetamine Screen Urine Not Detected (Not Detect); Barbiturates, Urine Not Detected (Not Detect); Benzodiazepines Screen Urine Not Detected (Not Detect); Cannabinoid Screen Urine POSITIVE (Not Detect); Cocaine Screen Urine Not Detected (Not Detect); Fentanyl, urine Not Detected (Not Detect); Opiate Screen Urine Not Detected (Not Detect); Phencyclidine Screen Urine Not Detected (Not Detect)
[2022-10-28 06:00] VITALS: BP 104/49; PULSE 85; RESP 16; TEMP 36.7; O2SAT 95
== END 2022-10-28 07:45 | disposition home or self-care (01) ==
PROVIDERS: Emergency Provider Internal Medicine
DX: R11.15 Cyclical vomiting syndrome unrelated to migraine (principal); F12.180 Cannabis abuse with cannabis-induced anxiety disorder; E11.22 Type 2 diabetes mellitus with diabetic chronic kidney disease; I12.9 Hypertensive chronic kidney disease with stage 1 through stage 4 chronic kidney disease, or unspecified chronic kidney disease; N18.9 Chronic kidney disease, unspecified; E78.5 Hyperlipidemia, unspecified; F17.210 Nicotine dependence, cigarettes, uncomplicated; Z79.4 Long term (current) use of insulin; Z79.02 Long term (current) use of antithrombotics/antiplatelets; Z79.899 Other long term (current) drug therapy
CPT/HCPCS: 36415; 80053; 80307; 81001; 83690; 85027; 96374; 96375; 99284; J1200; J2060

== ENCOUNTER 2022-12-09 22:20 | Emergency (ER) | payer OTHER, SELFPAY ==
[2022-12-09 22:25] VITALS: BP 148/93; BP 182/110; PULSE 130; PULSE 90; RESP 24; TEMP 36.9; O2SAT 97; BMI 28.2
[2022-12-09 22:36] LABS: Glucose, Whole Blood 224 mg/dL (60-115)
[2022-12-09] MEDS: LORazepam 2 MG/ML VIAL IM (22:38)
[2022-12-09 22:53] VITALS: BP 147/91; PULSE 125; RESP 22; O2SAT 99
[2022-12-09 23:08] VITALS: BP 125/78; PULSE 114; RESP 18; O2SAT 98
[2022-12-09 23:23] VITALS: BP 130/61; PULSE 110; RESP 18; O2SAT 98
--- NOTE | 2022-12-09 23:32 | ED_ITS ---
HPI - Alcohol General Chief Complaint: ETOH/Substance Use Stated Complaint: etoh Time Seen by Provider: 12/09/22 22:34 Source: patient and EMS Mode of arrival: EMS Limitations: no limitations History of Present Illness HPI narrative: Patient with History of depression, hypertension hyperlipidemia, diabetes, , CKD, CAD 2 vessel CABG cardiomyopathy status post AICD, multiple myeloma, monoclonal gammopathy came here as patient feels very depressed as his son last week very tearful unable to sleep for last 3 days had alcohol prior to arrive crying on arrival denies any SI but wants some help to talk to someone Related Data Home Medications Medication Instructions Recorded Confirmed albuterol sulfate 90 mcg/actuation 2 puff inhalation Q4H PRN Cough 04/25/20 11/16/22 aerosol inhaler atorvastatin 80 mg tablet 80 mg PO BEDTIME 04/25/20 11/16/22 clopidogrel 75 mg tablet 75 mg PO DAILY 04/25/20 11/16/22 insulin glargine 100 unit/mL (3 47 unit subcut QAM 04/25/20 11/16/22 mL) subcutaneous pen (Lantus Solostar U-100 Insulin) pantoprazole 40 mg tablet,delayed 40 mg PO DAILY 04/25/20 11/16/22 release sertraline 25 mg tablet 25 mg PO DAILY 04/25/20 11/16/22 azelastine 137 mcg (0.1 %) nasal 2 spray intranasal BID 02/04/21 11/16/22 spray aerosol fenofibrate nanocrystallized 145 1 tab PO DAILY 02/04/21 11/16/22 mg tablet insulin lispro 100 unit/mL 10 - 18 unit subcut TID 02/04/21 11/16/22 subcutaneous pen (Humalog KwikPen (U-100) Insulin) pen needle, diabetic 31 gauge x 02/04/21 11/16/2211/16 (BD Ultra-Fine Short Pen Needle) sertraline 100 mg tablet 100 mg PO DAILY 05/25/21 11/16/22 flash glucose sensor (FreeStyle #1 ea 11/06/21 11/16/22 Neville 14 Day Sensor kit) nicotine 21 mg/24 hr daily 1 patch topical DAILY 12/31/21 11/16/22 transdermal patch clonazepam 0.5 mg tablet 1 tab PO BEDTIME 02/22/22 11/16/22 duloxetine 20 mg capsule,delayed 40 mg PO BID 02/22/22 11/16/22 release sulfamethoxazole 800 1 tab PO MOWEFR@02/22/22 11/16/22 mg-trimethoprim 160 mg tablet docusate sodium 100 mg capsule 100 mg PO BID 03/29/22 11/16/22 gabapentin 300 mg capsule 300 mg PO TID 03/29/22 11/16/22 nicotine (polacrilex) 2 mg gum 2 mg PO DAILY 03/29/22 11/16/22 Previous Rx's Medication Instructions Recorded loperamide 2 mg capsule 2 mg PO Q4H PRN Diarrhea #30 caps 09/01/21 amitriptyline 25 mg tablet 25 mg PO BEDTIME #30 tabs 02/25/22 oxycodone 10 mg tablet 10 mg PO Q6H PRN pain (scale score 02/25/22 7-10) #30 tabs aspirin 325 mg tablet 325 mg PO DAILY #90 tabs 03/06/22 ondansetron 8 mg disintegrating 8 mg PO Q8H #60 tabs 03/09/22 tablet tamsulosin 0.4 mg capsule 0.4 mg PO BEDTIME 90 days #90 caps 04/02/22 lenalidomide 15 mg capsule 15 mg PO DAILY #21 caps 04/13/22 (Revlimid) valacyclovir 500 mg tablet 1 tab PO DAILY #60 tabs 05/06/22 torsemide 20 mg tablet 20 mg PO .everyother #45 tabs 07/22/22 lidocaine 5 % topical patch 1 patch topical DAILY #30 ea 08/10/22 (Lidoderm) calcium carbonate 500 mg-vitamin 1 tab PO TID #90 tabs 10/05/22 D3 10 mcg (400 unit) tablet (Calcium 500 + D) lorazepam 1 mg tablet (Ativan) 1 mg PO BID PRN anxiety #14 tabs 10/28/22 midodrine 2.5 mg tablet 2.5 mg PO TID #90 tabs 12/03/22 Allergies Allergy/AdvReac Type Severity Reaction Status Date / Time egg [EGG] Allergy Severe NAUSEA, Verified 11/16/22 14:33 ITCHY THROAT meperidine [From DEMEROL] Allergy Unknown AGITATION Verified 11/16/22 14:33 Review of Systems Review of Systems: Yes all other systems are reviewed and are negative PMF Past Medical History Medical History Bladder pain CAD (coronary artery disease) Chronic systolic CHF (congestive heart failure) CKD (chronic kidney disease) CVA (cerebral vascular accident) Diabetes mellitus HLD (hyperlipidemia) HTN (hypertension) ICD (implantable cardioverter-defibrillator) in place Ischemic cardiomyopathy Monoclonal gammopathy Multiple myeloma Multiple myeloma Surgical History Hx of cardiac cath (~2017) S/P CABG x 2 (~02/2019) Family History Family History Father Esophageal cancer Diabetes mellitus Mother Diabetes mellitus Brother Diabetes mellitus Sister Diabetes mellitus Cervical cancer Social History Social History Household Members: Spouse and Children Housing: House Are you a primary careers counsellor to a significant other at home: No Do you presently have visiting nurse or other home services: No Alcohol intake: current Alcohol intake frequency: 0-2 drinks per day Patient Tobacco Use Status: Current someday Tobacco user Smoking Start Date: 03/23/21 Tobacco use type: Cigarette Smoked in Last 30 Days: No Use of substances other than those prescribed or required for medical reasons: No Substance Use Type: Marijuana Advance Directives Date on File: 08/31/21 service: No Current occupational status: disabled Physical Exam ED Vital Signs: Vital Signs - 24 hr 12/09/22 22:25 12/09/22 22:53 12/09/22 23:08 Temperature 98.4 F Pulse Rate 130 H 125 H 114 H Respiratory Rate 24 H 22 H 18 Blood Pressure 148/93 H 147/91 H 125/78 Pulse Oximetry 97 99 98 Oxygen Delivery Method Room Air Room Air Room Air 12/09/22 23:23 12/10/22 00:10 Temperature Pulse Rate 110 H 94 Respiratory Rate 18 18 Blood Pressure 130/61 112/65 Pulse Oximetry 98 98 Oxygen Delivery Method Room Air BMI result Body Mass Index 28.2 Appearance: Alert. Oriented X3. No acute distress. Eyes: PERRLA, No Nystagmus ENT: Pharynx normal. Oral Mucosa moist Neck: Normal inspection. Neck supple. CVS: Normal heart rate and rhythm. Pulses normal. Respiratory: No respiratory distress. Equal air entry bilateral, no wheezing/r ales/rhonchi Abdomen: Soft and nontender. Bowel sounds are present, no mass palpable, no CVA tenderness Skin: Skin warm and dry. Normal skin color. Normal skin turgor. Extremities: No lower extremity edema. No calf tenderness psych: Depressed tearfull crying on arrival Neuro: Oriented X 3. No motor deficit. No sensory deficit.No cerebellar signs , cranial nerves II-XII intact Medical Decision Making Lab Data MDM Lab Attestation statement: I reviewed the patient's lab results. 12/09/22 23:59 12/09/22 23:58 Labs: Lab Results 12/09/22 12/09/22 12/09/22 Range/Units 22:33 23:58 23:58 WBC (4.8-10.8) X10*3/uL RBC (4.60-5.80) X10*6/uL Hgb (14.0-18.0) g/dl Hct (42.0-52.0) % MCV (80.0-98.0) fL MCH (27.0-33.0) pg MCHC (31.0-36.0) g/dl RDW (11.0-16.0) % Plt Count (160-400) X10*3/uL MPV (9.4-12.4) fL Immature Gran % (Auto) (0.0-0.4) % Neut % (Auto) (45-73) % Lymph % (Auto) (20-40) % [place] % (Auto) (2-11) % Eos % (Auto) (0-4) % Baso % (Auto) (0-2) % Lymph # (Auto) (1.2-4.9) X10*3/uL [place] # (Auto) (0.1-1.2) X10*3/uL Eos # (Auto) (0.0-0.4) X10*3/uL Baso # (Auto) (0.0-0.2) X10*3/uL Abs Immat Gran (auto) (0.00-0.03) X10*3/uL Absolute Neuts (auto) (2.0-8.3) x10*3/uL Absolute Nucleated RBC (0.0-0.012) X10*3/uL Nucleated RBC % (auto) (0.0-0.2) /100WBC Sodium 142 (135-145) mmol/L Potassium 4.2 (3.3-5.1) mmol/L Chloride 104 (96-108) mmol/L Carbon Dioxide 24 (22-29) mmol/L Anion Gap 18 (12-20) BUN 25 H (9-16) mg/dL Creatinine 2.38 H (0.5-1.4) mg/dL Estim Creat Clear Calc 38.8 Estimated GFR 29 POC Glucose 224 H (60-115) mg/dL Random Glucose 221 H (60-115) mg/dL Calcium 11.0 H D (8.4-10.2) mg/dL Magnesium 2.0 (1.6-2.6) mg/dL Total Bilirubin 0.2 (0.0-1.0) mg/dL AST 32 (5-37) U/L ALT 18 (0-40) U/L Alkaline Phosphatase 65 (39-117) U/L Total Protein 8.0 (6.5-8.0) g/dL Albumin 5.0 (3.5-5.0) g/dL Ethyl Alcohol 175 mg/dL COVID-19 ([facility]ATE) Negative (Negative) COVID-19 Clin Com See Note 12/09/22 Range/Units 23:59 WBC 14.0 H (4.8-10.8) X10*3/uL RBC 3.46 L (4.60-5.80) X10*6/uL Hgb 10.1 L (14.0-18.0) g/dl Hct 30.1 L (42.0-52.0) % MCV 87.0 (80.0-98.0) fL MCH 29.2 (27.0-33.0) pg MCHC 33.6 (31.0-36.0) g/dl RDW 12.7 (11.0-16.0) % Plt Count 354 (160-400) X10*3/uL MPV 10.1 (9.4-12.4) fL Immature Gran % (Auto) 0.4 (0.0-0.4) % Neut % (Auto) 82.4 H (45-73) % Lymph % (Auto) 12.8 L (20-40) % [place] % (Auto) 3.9 (2-11) % Eos % (Auto) 0.1 (0-4) % Baso % (Auto) 0.4 (0-2) % Lymph # (Auto) 1.8 (1.2-4.9) X10*3/uL [place] # (Auto) 0.6 (0.1-1.2) X10*3/uL Eos # (Auto) 0.0 (0.0-0.4) X10*3/uL Baso # (Auto) 0.1 (0.0-0.2) X10*3/uL Abs Immat Gran (auto) 0.06 H (0.00-0.03) X10*3/uL Absolute Neuts (auto) 11.5 H (2.0-8.3) x10*3/uL Absolute Nucleated RBC 0.000 (0.0-0.012) X10*3/uL Nucleated RBC % (auto) 0.0 (0.0-0.2) /100WBC Sodium (135-145) mmol/L Potassium (3.3-5.1) mmol/L Chloride (96-108) mmol/L Carbon Dioxide (22-29) mmol/L Anion Gap (12-20) BUN (9-16) mg/dL Creatinine (0.5-1.4) mg/dL Estim Creat Clear Calc Estimated GFR POC Glucose (60-115) mg/dL Random Glucose (60-115) mg/dL Calcium (8.4-10.2) mg/dL Magnesium (1.6-2.6) mg/dL Total Bilirubin (0.0-1.0) mg/dL AST (5-37) U/L ALT (0-40) U/L Alkaline Phosphatase (39-117) U/L Total Protein (6.5-8.0) g/dL Albumin (3.5-5.0) g/dL Ethyl Alcohol mg/dL COVID-19 ([facility]) (Negative) COVID-19 Clin Com Independent Interpretation I performed an independent interpretation of an: EKG Interpretation: Normal sinus rhythm LVH heart rate 95 beats per minute no acute ischemia Medications Administered Discontinued Medications Generic Name Dose Route Start Last Admin Trade Name Freq PRN Reason Stop Dose Admin Sodium Chloride 1,000 mls @ 999 mls/hr 12/09/22 23:44 12/10/22 01:38 Ns IV 12/10/22 00:44 Infused .Q1H1M ONE Infusion Lorazepam 2 mg 12/09/22 22:34 12/09/22 22:38 Lorazepam 2 Mg/Ml Vial IM 12/09/22 22:35 2 mg STAT STA Administration Lorazepam 2 mg 12/09/22 23:45 12/10/22 00:05 Lorazepam 2 Mg/Ml Vial IVPUSH 12/09/22 23:46 2 mg ONCE ONE Administration Discharge Plan Discharge Clinical Impression: Depression, Alcohol intoxication Patient Disposition: Still a Patient Prescriptions: No Action aspirin 325 mg Tablet 325 mg PO DAILY Qty: 90 6RF torsemide 20 mg tablet 20 mg PO .everyother Qty: 45 3RF midodrine 2.5 mg tablet 2.5 mg PO TID Qty: 90 0RF sertraline 100 mg tablet 100 mg PO DAILY Rx Instructions: one 25 mg tab + one 100 mg tab = 125 mg daily dose ondansetron 8 mg Tablet,Disintegrating 8 mg PO Q8H Qty: 60 6RF lenalidomide [Revlimid] 15 mg Capsule 15 mg PO DAILY Qty: 21 3RF Rx Instructions: swallow whole with glass of water; do not open, crush, chew , break, or dissolve. AUTH NO: [id number]. valacyclovir 500 mg tablet 1 tab PO DAILY Qty: 60 11RF lidocaine [Lidoderm] 5 % Adhesive Patch,Medicated 1 patch TOPICAL DAILY Qty: 30 2RF Rx Instructions: leave on most painful area for up to 12 hrs calcium carbonate-vitamin D3 [Calcium 500 + D] 500 mg-10 mcg (400 unit) Tablet 1 tab PO TID Qty: 90 4RF azelastine 137 mcg (0.1 %) Aerosol,[place] 2 spray INTRANASAL BID insulin lispro [Humalog KwikPen Insulin] 100 unit/mL Insulin Pen 10 - 18 unit SUBCUT TID (DME) pen needle, diabetic [BD Ultra-Fine Short Pen Needle] 31 gauge x 5/16 needle subcut QID fenofibrate nanocrystallized 145 mg tablet 1 tab PO DAILY clonazepam 0.5 mg tablet 1 tab PO BEDTIME sulfamethoxazole-trimethoprim 800-160 mg tablet 1 tab PO MOWEFR@09 duloxetine 20 mg capsule,delayed release(DR/EC) 40 mg PO BID amitriptyline 25 mg Tablet 25 mg PO BEDTIME Qty: 30 0RF oxycodone 10 mg tablet 10 mg PO Q6H MDD 30 PRN (Reason: pain (scale score 7-10)) Qty: 30 0RF Rx Instructions: Partial Fill upon patient request. loperamide 2 mg Capsule 2 mg PO Q4H PRN (Reason: Diarrhea) Qty: 30 0RF lorazepam [Ativan] 1 mg tablet 1 mg PO BID PRN (Reason: anxiety) Qty: 14 0RF clopidogrel 75 mg tablet 75 mg PO DAILY atorvastatin 80 mg tablet 80 mg PO BEDTIME albuterol sulfate 90 mcg/actuation HFA aerosol inhaler 2 puff inhalation Q4H PRN (Reason: Cough) pantoprazole 40 mg tablet,delayed release (DR/EC) 40 mg PO DAILY sertraline 25 mg tablet 25 mg PO DAILY Rx Instructions: one 25 mg tab + one 100 mg tab = 125 mg daily dose [place] Solostar U-100 Insulin 100 unit/mL (3 mL) insulin pen 47 unit subcut QAM nicotine 21 mg/24 hr patch 24 hour 1 patch topical DAILY (DME) FreeStyle Neville 14 Day Sensor Kit See Rx Instructions topical Q2W Qty: 1 Rx Instructions: As directed nicotine (polacrilex) 2 mg gum 2 mg PO DAILY gabapentin 300 mg capsule 300 mg PO TID docusate sodium 100 mg capsule 100 mg PO BID tamsulosin 0.4 mg capsule 0.4 mg PO BEDTIME 90 Days Qty: 90 3RF
--- NOTE | 2022-12-09 23:32 | PC.NURSE ---
Late entry: pt comes in via ambulance, unable to obtain full hx. Pt is crying and yelling about his son dying recently. He is also stating over and over that he has cancer and a bad heart. This RN, security and techs attempted to console patient. pt continuing to attempt to get up. Pt visibly unsteady on feet, due to ETOH intoxication. Pt assisted back to sitting in bed but continues to yell and attempt to get up. It was determined that pt needed medication to assist with calming down, verbal order from MD Guo for 2mg Ativan IM. Pt received injection and Nadeen, MHT began sitting 1:1 with the patient.
--- NOTE | 2022-12-09 23:44 | ECG_ITS ---
Test Reason : TACHY Blood Pressure : / mmHG Vent. Rate : 095 BPM Atrial Rate : 095 BPM P-R Int : 174 ms QRS Dur : 082 ms QT Int : 390 ms P-R-T Axes : 050 -11 072 degrees QTc Int : 490 ms Normal sinus rhythm Minimal voltage criteria for LVH, may be normal variant ( R in aVL ) Inferior infarct (cited on or before 30-AUG-2021) Abnormal ECG When compared with ECG of 21-FEB-2022 18:10, Vent. rate has increased BY 38 BPM Referred By: Kentrell Fletcher Electronically Signed By:Yayo Barba
[2022-12-10] MEDS: 0.9 % Sodium Chloride 1,000 ML 999 ML IV
[2022-12-10 00:04] LABS: MANUAL DIFF FLAG NO
[2022-12-10 00:05] LABS: Basophils Absolute Auto 0.1 X10*3/uL (0.0-0.2); Basophils Percent Auto 0.4 % (0-2); Eosinophils Percent Auto 0.1 % (0-4); Hematocrit 30.1 % (42.0-52.0); Hemoglobin 10.1 g/dl (14.0-18.0); Imm Gran Abs Auto 0.06 X10*3/uL (0.00-0.03); Imm Gran Pct Auto 0.4 % (0.0-0.4); Lymphocytes Absolute Auto 1.8 X10*3/uL (1.2-4.9); Lymphocytes Percent Auto 12.8 % (20-40); Mean Corpuscular HGB Conc 33.6 g/dl (31.0-36.0); Mean Corpuscular Hemoglobin 29.2 pg (27.0-33.0); Mean Platelet Volume 10.1 fL (9.4-12.4); Monocytes Absolute Auto 0.6 X10*3/uL (0.1-1.2); Monocytes Percent Auto 3.9 % (2-11); Neutrophils Absolute Auto 11.5 x10*3/uL (2.0-8.3); Neutrophils Percent Auto 82.4 % (45-73); Platelet Count 354 X10*3/uL (160-400); Red Blood Count 3.46 X10*6/uL (4.60-5.80); Red Cell Distribution Width 12.7 % (11.0-16.0)
[2022-12-10] MEDS: LORazepam 2 MG/ML VIAL IVPUSH (00:05)
--- NOTE | 2022-12-10 00:07 | PC.NURSE ---
late entry: pt speaking with MD, pt requesting something to help him calm down, stating that he feels as though he cannot calm himself. MD requesting blood draw and IV for IV Ativan and fluids. Pt agreeable to this plan at this time. Pt calm and cooperative with this RN, continues to be tearful at times
[2022-12-10 00:10] VITALS: BP 112/65; PULSE 94; RESP 18; O2SAT 98
[2022-12-10 00:21] LABS: Alanine Aminotransferase 18 U/L (0-40); Alkaline Phosphatase 65 U/L (39-117); Anion Gap 18 (12-20); Aspartate Amino Transferase 32 U/L (5-37); Bilirubin Total 0.2 mg/dL (0.0-1.0); Blood Urea Nitrogen 25 mg/dL (9-16); Carbon Dioxide 24 mmol/L (22-29); Chloride 104 mmol/L (96-108); Creatinine Clr Calc Pharmacy 38.8; Estimated Glomerular Filt Rate 29; Ethanol 175 mg/dL; Glucose Random 221 mg/dL (60-115); Potassium 4.2 mmol/L (3.3-5.1); Sodium 142 mmol/L (135-145)
[2022-12-10 00:23] LABS: COVID-19 Test Negative (Negative); IDNOW Serial# 08D9AD1C
[2022-12-10 02:32] VITALS: BP 116/70; PULSE 88; RESP 18; O2SAT 98
--- NOTE | 2022-12-10 03:10 | PC.NURSE ---
pt changed over to green gown, belongings secured in pod (LOCKER 11). Pt sleeping, respirations even and unlabored, skin pwd, no apparent distress. Pt repositioned in bed by this RN and SHAISTA Patel. 20g IV remains in wrist. Report given to kiah Lopez
--- NOTE | 2022-12-10 03:14 | PC.NURSE ---
Took over care from MAURICIO Hill at 3:15am, Pt is sleeping with no sign of distress.
[2022-12-10 04:10] VITALS: BP 120/72; PULSE 89; RESP 14; TEMP 36.8; O2SAT 95
[2022-12-10 06:00] VITALS: BP 123/75; PULSE 88; RESP 15; TEMP 36.7; O2SAT 96
[2022-12-10] MEDS: Acetaminophen 325 MG TABLET 650 MG PO (06:23)
--- NOTE | 2022-12-10 06:25 | PC.NURSE ---
pt resting, calm and cooperative at this time, medicated for headache, will continue to monitor at this time.
[2022-12-10 06:28] LABS: Amphetamine Screen Urine Not Detected (Not Detect); Barbiturates, Urine Not Detected (Not Detect); Benzodiazepines Screen Urine Not Detected (Not Detect); Cannabinoid Screen Urine POSITIVE (Not Detect); Cocaine Screen Urine Not Detected (Not Detect); Fentanyl, urine Not Detected (Not Detect); Opiate Screen Urine POSITIVE (Not Detect); Phencyclidine Screen Urine Not Detected (Not Detect)
--- NOTE | 2022-12-10 06:50 | PC.NURSE ---
Re-assessed pt, pt denies any SI or HI, pt is extremely depressed due to losing his son and reporting he has cancer. Will continue monitor.
[2022-12-10 07:01] VITALS: BP 121/73; PULSE 82; RESP 18; O2SAT 98
--- NOTE | 2022-12-10 07:02 | PC.NURSE ---
Alert and oriented. Denies SI just states depressed. States still has a slight headache. Resting comfortably at this time.
--- NOTE | 2022-12-10 09:05 | PC.NURSE ---
CARE team at bedside
[2022-12-10 09:18] VITALS: BP 128/80; PULSE 78; RESP 12; O2SAT 97
--- NOTE | 2022-12-10 09:27 | PHA.MEDREC ---
Pharmacy Consult ? Medication Reconciliation Pharmacy has completed the medication reconciliation.
[2022-12-10] MEDS: oxyCODONE HCl Immed Release 5 MG TABLET 10 MG PO (09:36)
--- NOTE | 2022-12-10 09:40 | PC.NURSE ---
Medicated as charted for general body discomfort, pt relates to cancer history, 03/13. Tearful. Declines food at this time. Awaits dispo from CARE team
--- NOTE | 2022-12-10 09:41 | MHC.CARE ---
CARE Team met with Pt secondary to consult for depression. Pt reported? he lost his son on Tuesday and relapsed last evening after a period of sobriety from alcohol use. CARE Team Pt discussed multiple psychosocial stressors; loss of his son and cancer. Pt states he has chronic pain due to a cancer dx.?Pt reports a supportive family and currently has therapist through [facility] Rosmery Hernandez. Pt reports he is on psychiatric medication prescribed by PCP that was starting following heart surgery at [facility]. Pt declines needing further mental health intervention. CARE Team left message with [facility] for sooner appt. CARE Team provided Pt with [facility] information.
== END 2022-12-10 11:11 | disposition home or self-care (01) ==
PROVIDERS: Emergency Provider Internal Medicine
DX: F33.1 Major depressive disorder, recurrent, moderate (principal); F10.129 Alcohol abuse with intoxication, unspecified; I25.10 Atherosclerotic heart disease of native coronary artery without angina pectoris; R00.0 Tachycardia, unspecified; Y90.6 Blood alcohol level of 120-199 mg/100 ml; F17.210 Nicotine dependence, cigarettes, uncomplicated; Z71.6 Tobacco abuse counseling; Z79.899 Other long term (current) drug therapy; Z20.822 Contact with and (suspected) exposure to COVID-19; Z20.828 Contact with and (suspected) exposure to other viral communicable diseases
CPT/HCPCS: 80053; 80307; 82947; 83735; 85025; 87635; 93005; 96361; 96372; 96374; 99285; J2060; S9485

== ENCOUNTER 2022-12-10 23:40 | Emergency (ER) | payer OTHER, SELFPAY ==
--- NOTE | ~2022-12-10 | XR_ITS ---
EXAMINATION: XR CHEST CLINICAL INFORMATION: Chest pain. COMPARISON: Chest radiograph 02/21/2022. TECHNIQUE: Frontal view of the chest was obtained. FINDINGS: Stable appearance of the cardiomediastinal silhouette. Left-sided pacer/AICD in unchanged positioning. Redemonstration of mediastinal surgical clips and sternal wires. Unchanged streaky retrocardiac opacities. No new focal airspace opacities, pleural effusions or pneumothorax. No acute osseous findings. XR/XR chest 1V IMPRESSION: Unchanged streaky retrocardiac opacities, likely atelectasis and scarring. No new focal airspace opacities. No pleural effusions or pneumothorax.
[2022-12-10 23:44] VITALS: BP 162/84; PULSE 128; O2SAT 99
--- NOTE | 2022-12-10 23:47 | ECG_ITS ---
Test Reason : CHEST PAIN Blood Pressure : / mmHG Vent. Rate : 106 BPM Atrial Rate : 106 BPM P-R Int : 170 ms QRS Dur : 076 ms QT Int : 350 ms P-R-T Axes : 061 -10 089 degrees QTc Int : 464 ms Sinus tachycardia Minimal voltage criteria for LVH, may be normal variant ( R in aVL ) Inferior infarct (cited on or before 30-AUG-2021) Abnormal ECG When compared with ECG of 10-DEC-2022 00:02, No significant change was found Referred By: Generic ED Physician Electronically Signed By:Yayo Barba
[2022-12-10 23:55] VITALS: BMI 25.0
[2022-12-11] VITALS (7 sets, daily range): BP systolic 119–149; BP diastolic 64–83; PULSE 67–100; RESP 12–22; TEMP 36.6–36.9; O2SAT 96–99
--- NOTE | 2022-12-11 00:01 | ED.ALCOHOL ---
HPI - Alcohol General Chief Complaint: ETOH/Substance Use Stated Complaint: ETOH Time Seen by Provider: 12/10/22 23:51 Source: patient and EMS Mode of arrival: EMS Limitations: other (Alcohol intoxication) History of Present Illness HPI narrative: Patient comes to the emergency room intoxicated. Patient crying, inconsolable, states that his son overdosed 4 days ago and . Patient was seen here yesterday for the same reason. Patient denies SI or HI. Patient denies SI or HI, patient denies falls Related Data Home Medications Medication Instructions Recorded Confirmed albuterol sulfate 90 mcg/actuation 2 puff inhalation Q4H PRN Cough 04/25/20 12/10/22 aerosol inhaler atorvastatin 80 mg tablet 80 mg PO BEDTIME 04/25/20 12/10/22 clopidogrel 75 mg tablet 75 mg PO DAILY 04/25/20 12/10/22 insulin glargine 100 unit/mL (3 48 unit subcut QAM 04/25/20 12/10/22 mL) subcutaneous pen (Lantus Solostar U-100 Insulin) pantoprazole 40 mg tablet,delayed 40 mg PO DAILY 04/25/20 12/10/22 release sertraline 25 mg tablet 25 mg PO DAILY 04/25/20 12/10/22 fenofibrate nanocrystallized 145 1 tab PO DAILY 02/04/21 12/10/22 mg tablet insulin lispro 100 unit/mL 10 - 18 unit subcut TID 02/04/21 12/10/22 subcutaneous pen (Humalog KwikPen (U-100) Insulin) pen needle, diabetic 31 gauge x 02/04/21 11/16/22 5/16 (BD Ultra-Fine Short Pen Needle) sertraline 100 mg tablet 100 mg PO DAILY 05/25/21 12/10/22 flash glucose sensor (FreeStyle #1 ea 11/06/21 11/16/22 Neville 14 Day Sensor kit) duloxetine 20 mg capsule,delayed 40 mg PO BID 02/22/22 12/10/22 release docusate sodium 100 mg capsule 100 mg PO BID 03/29/22 12/10/22 nicotine (polacrilex) 2 mg gum 2 mg PO NEEDED 12/10/22 12/10/22 torsemide 20 mg tablet 20 mg PO Q48H 12/10/22 12/10/22 Previous Rx's Medication Instructions Recorded amitriptyline 25 mg tablet 25 mg PO BEDTIME #30 tabs 02/25/22 oxycodone 10 mg tablet 10 mg PO Q6H PRN pain (scale score 02/25/22 7-10) #30 tabs aspirin 325 mg tablet 325 mg PO DAILY #90 tabs 03/06/22 tamsulosin 0.4 mg capsule 0.4 mg PO BEDTIME 90 days #90 caps 04/02/22 valacyclovir 500 mg tablet 1 tab PO DAILY #60 tabs 05/06/22 calcium carbonate 500 mg-vitamin 1 tab PO TID #90 tabs 10/05/22 D3 10 mcg (400 unit) tablet (Calcium 500 + D) lorazepam 1 mg tablet (Ativan) 1 mg PO BID PRN anxiety #14 tabs 10/28/22 midodrine 2.5 mg tablet 2.5 mg PO TID #90 tabs 12/03/22 Allergies Allergy/AdvReac Type Severity Reaction Status Date / Time egg [EGG] Allergy Severe NAUSEA, Verified 11/16/22 14:33 ITCHY THROAT meperidine [From DEMEROL] Allergy Unknown AGITATION Verified 11/16/22 14:33 Review of Systems Review of Systems: Constitutional : No Weight loss, No Fever, No Chills, No Night Sweats, No Fatigue, No Malaise ENT/Mouth : No Hearing loss, No Ear Pain, No Nasal Congestion, No Sinus Pain, No Hoarseness, No sore throat, No Rhinorrhea, No Swallowing Difficulty Eyes: No Eye Pain, No Swelling, No Redness, No Foreign Body, No Discharge, No Vision Changes Cardiovascular : No Chest Pain, No SOB, No Dyspnea on Exertion, No Orthopnea, No Edema, No Palpitations Respiratory : No Cough, No Sputum, No Wheezing, No Smoke Exposure, No Dyspnea Gastrointestinal : No Nausea, No Vomiting, No Diarrhea, No Constipation, No abdominal Pain, No Hematochezia, No Melena Genitourinary : no irregular bleeding, No Dysuria, No Urinary Frequency, No Hematuria, No Urinary Incontinence, No Urgency, No Flank Pain, No Urinary Flow Changes, No Hesitancy Musculoskeletal : No joint pain, No Myalgias, No Joint Swelling Skin : No Skin Lesions, No rash Neuro : No Weakness, No Numbness, No Paresthesias, No Loss of Consciousness, No Dizziness, No Headache Psych : Crying, admits to alcohol drinking, very depressed, his son just started 4 days ago Heme/Lymph: No Bruising, No Bleeding,No Lymphadenopathy Endocrine : No Polyuria, No Polydipsia, No Temperature Intolerance [facility] Past Medical History Medical History Bladder pain CAD (coronary artery disease) Chronic systolic CHF (congestive heart failure) CKD (chronic kidney disease) CVA (cerebral vascular accident) Diabetes mellitus HLD (hyperlipidemia) HTN (hypertension) ICD (implantable cardioverter-defibrillator) in place Ischemic cardiomyopathy Monoclonal gammopathy Multiple myeloma Multiple myeloma Surgical History Hx of cardiac cath (~2017) S/P CABG x 2 (~02/2019) Family History Family History Father Esophageal cancer Diabetes mellitus Mother Diabetes mellitus Brother Diabetes mellitus Sister Diabetes mellitus Cervical cancer Social History Social History Household Members: Spouse and Children Housing: House Are you a primary dog daycare provider to a significant other at home: No Do you presently have visiting nurse or other home services: No Alcohol intake: current Alcohol intake frequency: 0-2 drinks per day Patient Tobacco Use Status: Current someday Tobacco user Smoking Start Date: 03/23/21 Tobacco use type: Cigarette Substance Use Type: Marijuana Advance Directives Date on File: 08/31/21 service: No Current occupational status: disabled Physical Exam ED Vital Signs: BMI result Body Mass Index 25.0 Const Other: Appearance: Alert. Oriented X3. Intoxicated Eyes: Pupils equal, round and reactive to light. ENT: Pharynx normal. Neck: Normal inspection. Neck supple. No lymph nodes noted. No crepitus CVS: Normal heart rate and rhythm. Pulses normal. Normal S1 and S2 Respiratory: No respiratory distress. Breath sounds normal. No Wheezing. No rales Abdomen: Soft and nontender. No rigidity. No distention. Skin: Skin warm and dry. Normal skin color. Normal skin turgor. Extremities: No lower extremity edema. No Lacerations. No Rash Neuro: Oriented X 3. No motor deficit. Wobbly gait, intoxicated Psych: Crying inconsolably Course Course Course Narrative: -patient clearly depressed, just lost his son. -labs pending -treating consult pending -patient offered 2 mg of p.o. Ativan Discharge Plan Discharge Clinical Impression: Alcohol intoxication, Grieving Patient Disposition: Still a Patient Prescriptions: No Action aspirin 325 mg Tablet 325 mg PO DAILY Qty: 90 6RF midodrine 2.5 mg tablet 2.5 mg PO TID Qty: 90 0RF sertraline 100 mg tablet 100 mg PO DAILY Rx Instructions: one 25 mg tab + one 100 mg tab = 125 mg daily dose valacyclovir 500 mg tablet 1 tab PO DAILY Qty: 60 11RF calcium carbonate-vitamin D3 [Calcium 500 + D] 500 mg-10 mcg (400 unit) Tablet 1 tab PO TID Qty: 90 4RF insulin lispro [Humalog KwikPen Insulin] 100 unit/mL Insulin Pen 10 - 18 unit SUBCUT TID (DME) pen needle, diabetic [BD Ultra-Fine Short Pen Needle] 31 gauge x 5/16 needle subcut QID fenofibrate nanocrystallized 145 mg tablet 1 tab PO DAILY duloxetine 20 mg capsule,delayed release(DR/EC) 40 mg PO BID amitriptyline 25 mg Tablet 25 mg PO BEDTIME Qty: 30 0RF oxycodone 10 mg tablet 10 mg PO Q6H MDD 30 PRN (Reason: pain (scale score 7-10)) Qty: 30 0RF Rx Instructions: Partial Fill upon patient request. torsemide 20 mg tablet 20 mg PO Q48H nicotine (polacrilex) 2 mg gum 2 mg PO NEEDED lorazepam [Ativan] 1 mg tablet 1 mg PO BID PRN (Reason: anxiety) Qty: 14 0RF clopidogrel 75 mg tablet 75 mg PO DAILY atorvastatin 80 mg tablet 80 mg PO BEDTIME albuterol sulfate 90 mcg/actuation HFA aerosol inhaler 2 puff inhalation Q4H PRN (Reason: Cough) pantoprazole 40 mg tablet,delayed release (DR/EC) 40 mg PO DAILY sertraline 25 mg tablet 25 mg PO DAILY Rx Instructions: one 25 mg tab + one 100 mg tab = 125 mg daily dose Lantus Solostar U-100 Insulin 100 unit/mL (3 mL) insulin pen 48 unit subcut QAM (DME) FreeStyle Neville 14 Day Sensor Kit See Rx Instructions topical Q2W Qty: 1 Rx Instructions: As directed docusate sodium 100 mg capsule 100 mg PO BID tamsulosin 0.4 mg capsule 0.4 mg PO BEDTIME 90 Days Qty: 90 3RF
[2022-12-11 00:14] LABS: MANUAL DIFF FLAG NO
[2022-12-11 00:16] LABS: Basophils Percent Auto 0.4 % (0-2); Eosinophils Percent Auto 0.4 % (0-4); Hematocrit 27.7 % (42.0-52.0); Hemoglobin 9.2 g/dl (14.0-18.0); Imm Gran Abs Auto 0.12 X10*3/uL (0.00-0.03); Imm Gran Pct Auto 1.1 % (0.0-0.4); Lymphocytes Absolute Auto 2.2 X10*3/uL (1.2-4.9); Lymphocytes Percent Auto 19.6 % (20-40); Mean Corpuscular HGB Conc 33.2 g/dl (31.0-36.0); Mean Corpuscular Hemoglobin 28.7 pg (27.0-33.0); Mean Corpuscular Volume 86.3 fL (80.0-98.0); Mean Platelet Volume 9.9 fL (9.4-12.4); Monocytes Absolute Auto 0.7 X10*3/uL (0.1-1.2); Monocytes Percent Auto 5.9 % (2-11); Neutrophils Absolute Auto 8.2 x10*3/uL (2.0-8.3); Neutrophils Percent Auto 72.6 % (45-73); Platelet Count 323 X10*3/uL (160-400); Red Blood Count 3.21 X10*6/uL (4.60-5.80); Red Cell Distribution Width 12.7 % (11.0-16.0); White Blood Count 11.3 X10*3/uL (4.8-10.8)
[2022-12-11] MEDS: LORazepam 1 MG TABLET 2 MG PO (00:24)
[2022-12-11 00:32] LABS: Ethanol 189 mg/dL
[2022-12-11 00:34] LABS: Anion Gap 20 (12-20); Blood Urea Nitrogen 21 mg/dL (9-16); Calcium 10.4 mg/dL (8.4-10.2); Carbon Dioxide 17 mmol/L (22-29); Chloride 108 mmol/L (96-108); Creatinine Clr Calc Pharmacy 43.9; Estimated Glomerular Filt Rate 41; Glucose Random 240 mg/dL (60-115); Magnesium 1.8 mg/dL (1.6-2.6); Potassium 3.9 mmol/L (3.3-5.1); Sodium 141 mmol/L (135-145); Troponin-I High Sensitivity 16.8 ng/L (<3.5-35.0)
--- NOTE | 2022-12-11 03:47 | PC.NURSE ---
Pt sleeping at the bedside in no apparent distress. VSS. Breaths are even regular and unlabored with equal chest rises. Will continue to monitor.
--- NOTE | 2022-12-11 09:17 | PC.NURSE ---
Pt tearful, waiting for care team. C/o general body aches.
[2022-12-11 09:44] LABS: Amphetamine Screen Urine Not Detected (Not Detect); Barbiturates, Urine Not Detected (Not Detect); Benzodiazepines Screen Urine Not Detected (Not Detect); Cannabinoid Screen Urine POSITIVE (Not Detect); Cocaine Screen Urine Not Detected (Not Detect); Fentanyl, urine Not Detected (Not Detect); Opiate Screen Urine Not Detected (Not Detect); Phencyclidine Screen Urine Not Detected (Not Detect)
--- NOTE | 2022-12-11 11:32 | MHC.CARE ---
Pt was seen by CARE team for consult due to depression. Pt reports he is struggling with the recent loss of his son and a cancer diagnosis. 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 Pt was at [facility] yesterday for the same presentation. He reports his therapist did reach out to him but he is not ready to talk. Pt declining needing additional mental health or substance use interventions. Pt accepted information for local bereavement groups. CARE team called spouse, left message.
== END 2022-12-11 12:23 | disposition home or self-care (01) ==
PROVIDERS: Emergency Provider Emergency Medicine
DX: F10.920 Alcohol use, unspecified with intoxication, uncomplicated (principal); Y90.6 Blood alcohol level of 120-199 mg/100 ml; F43.20 Adjustment disorder, unspecified; Z72.89 Other problems related to lifestyle; Z63.4 Disappearance and death of family member; Z79.899 Other long term (current) drug therapy
CPT/HCPCS: 36415; 71045; 80048; 80307; 83735; 84484; 85025; 93005; 99284; 99285

== ENCOUNTER → 2023-03-31 23:59 | Outpatient (BNV) | payer OTHER, SELFPAY ==
--- NOTE | 2023-04-01 10:31 | MHC.OFFVIS ---
Intake Intake Visit Reasons: Remote ICD Check- BTR Allergies egg [EGG] Allergy (Severe, Verified 11/16/22 14:33) NAUSEA, ITCHY THROAT meperidine [From DEMEROL] Allergy (Unknown, Verified 11/16/22 14:33) AGITATION PFSH Medical History Bladder pain CAD (coronary artery disease) Chronic systolic CHF (congestive heart failure) CKD (chronic kidney disease) CVA (cerebral vascular accident) Diabetes mellitus HLD (hyperlipidemia) HTN (hypertension) ICD (implantable cardioverter-defibrillator) in place Ischemic cardiomyopathy Monoclonal gammopathy Multiple myeloma Multiple myeloma Surgical History Hx of cardiac cath (~2017) S/P CABG x 2 (~02/2019) Family History Father Esophageal cancer Diabetes mellitus Mother Diabetes mellitus Brother Diabetes mellitus Sister Diabetes mellitus Cervical cancer Social History Household Members: Spouse and Children Housing: House Are you a primary direct support professional caregiver to a significant other at home: No Do you presently have visiting nurse or other home services: No Alcohol intake: current Alcohol intake frequency: 0-2 drinks per day Alcohol type: hard liquor Patient Tobacco Use Status: Current someday Tobacco user Smoking Start Date: 03/23/21 Tobacco use type: Cigarette Substance Use Type: Marijuana Advance Directives Date on File: 08/31/21 service: No Current occupational status: disabled Office Procedures Cardiac Device Check Cardiac Device Check Details: Remote ICD report generated 04/01/2023. ICD function is adequate [id number] Cardiac Interrogation, implant defibrillator w/interim Procedure code (CPT) selection complete Coding Level of Care Code Procedure Only CPT Codes Cardiac Device Check - Cardiac Device 13: [id number] Cardiac Interrogation, implant defibrillator w/interim ([id number])
== END ==
PROVIDERS: Visit Provider Internal Medicine Cardiovascular Disease
DX: I25.5 Ischemic cardiomyopathy (principal); Z95.810 Presence of automatic (implantable) cardiac defibrillator
CPT/HCPCS: 93295

== ENCOUNTER 2023-04-01 14:34 | Outpatient (AMB) | payer OTHER, SELFPAY ==
--- NOTE | 2023-04-01 14:35 | A.OFFVIS_ITS ---
Intake Intake Visit Reasons: 1Y follow up Intake Note: Patient is Present for Telephone Follow Up Urology Med: Tamsulosin Antibiotic Allergy:None Blood Thinner: Aspirin Pharamcy: [facility] Allergies egg [EGG] Allergy (Severe, Verified 11/16/22 14:33) NAUSEA, ITCHY THROAT meperidine [From DEMEROL] Allergy (Unknown, Verified 11/16/22 14:33) AGITATION HPI HPI Comments History of Present Illness Details Pérez is a pleasant male. He is a patient of Dr. Burch. He seen for the following urologic conditions - cystitis - lower urinary tract symptoms Telemedicine Evaluation 15 min Consultation 2U Lynne Video attempted Ethiopian translation provided by qualified medical claims examiner Background multiple myeloma Bladder pain resolved when came off Januvia Continues with tamsulosin Presumed reduction in cystitis and recurrent UTI Recurring UTI Longstanding history of diabetes Treatment with multiple myeloma on oral chemotherapy and intravenous chemotherapy Bladder pain dating from 2018 Smokes half a pack per day Urinalysis in the office revealed no red cells, residual of 30 cc Creatinine 11/22 2.6 Poorly controlled diabetic who had been on Januvia which was stopped for recurrent UTIs Urine DNA shows E coli that is resistant 10/23 - penicillin, Bactrim, fluoroquino lone resistant PFSH Medical History Bladder pain Multiple myeloma CVA (cerebral vascular accident) Multiple myeloma CKD (chronic kidney disease) Chronic systolic CHF (congestive heart failure) Monoclonal gammopathy ICD (implantable cardioverter-defibrillator) in place Ischemic cardiomyopathy Diabetes mellitus CAD (coronary artery disease) HLD (hyperlipidemia) HTN (hypertension) Surgical History Hx of cardiac cath (~2017) S/P CABG x 2 (~02/2019) Family History Father Esophageal cancer Diabetes mellitus Mother Diabetes mellitus Brother Diabetes mellitus Sister Diabetes mellitus Cervical cancer Social History Household Members: Spouse and Children Housing: House Are you a primary assurance services manager health care to a significant other at home: No Do you presently have visiting nurse or other home services: No Alcohol intake: current Alcohol intake frequency: 0-2 drinks per day Alcohol type: hard liquor Patient Tobacco Use Status: Current someday Tobacco user Smoking Start Date: 03/23/21 Tobacco use type: Cigarette Substance Use Type: Marijuana Advance Directives Date on File: 08/31/21 service: No Current occupational status: disabled Review of Systems Const All systems reviewed & are unremarkable except as noted in HPI and below Reports no additional complaints Resp Reports no additional complaints GI Reports no additional complaints Reports as per HPI Musc Reports no additional complaints Physical Exam Telemedicine evaluation Appropriate responses Regular breathing rate and rhythm HEENT Head: Yes normal to inspection Ears: hearing grossly normal bilaterally Eyes General: appearance normal, both eyes and all related structures Neck Neck: Yes normal visual inspection Chest Chest palpation & inspection: normal inspection of the chest Resp Effort & Inspection: normal respiratory effort and able to speak in complete sentences Assessment & Plan Assessment & Plan (1) Chronic UTI (urinary tract infection): Code(s): N39.0 - Urinary tract infection, site not specified (2) Incomplete emptying of bladder due to benign prostatic hyperplasia: Code(s): N40.1 - Benign prostatic hyperplasia with lower urinary tract symptoms; R33.9 - Retention of urine, unspecified Plan Six month follow-up if does not move to [place] Medications: New alfuzosin ER 10 mg PO BEDTIME 90 tabs 1RF 90 days R39.89 - Other symptoms and signs involving the genitourinary system, N40.1 - Benign prostatic hyperplasia with lower urinary tract symptoms, N13.8 - Other obstructive and reflux uropathy Discontinued tamsulosin Discontinued Reason: Doctor's Order 0.4 mg PO BEDTIME 90 days 90 caps 1RF R39.89 - Other symptoms and signs involving the genitourinary system Patient Instructions: Imaging studies, laboratory and physical exam results were discussed and reviewed in detail. No major barriers to patient understanding were identified. An opportunity to ask questions regarding the treatment plan was provided. All questions were answered. The patient expressed understanding and agreement with the above treatment plan. The patient is aware they should contact our office by phone for worsening of their current condition or the appearance of new urologic symptoms. Compliance is encouraged with any medications and followup testing that is ordered. It is a privilege to participate in the urologic care of your patient. If you have any questions or concerns regarding treatment for the above conditions, or other urologic issues, please do not hesitate to contact me. The office telephone contact is [phone]. This note is constructed using voice recognition software. While every effort has been made to ensure accuracy policyholder information clerk errors may have been included. Yours sincerely, Dr Noman Dominguez MD, [facility] - Urology Providers of Expert, Compassionate Care for the Genitourinary System Telehealth Telehealth Location of provider rendering services: practice address Location of patient: address on file Patient Identification confirmed using: Name, : Yes Telehealth method: voice only Patient verbally consented to treatment: Yes Patient verbally consented to billing insurance company: Yes Patient informed of any privacy concerns related to visit: Yes Coding Level of Care Code Tele Est Pt Level 3 (66564) Diagnoses Chronic UTI (urinary tract infection) N39.0 Incomplete emptying of bladder due to benign prostatic hyperplasia N40.1; R33.9
== END 2023-04-01 15:16 | disposition home or self-care (01) ==
LOC: HO.HUSH 14:34
PROVIDERS: Visit Provider Urology
DX: N39.0 Urinary tract infection, site not specified (principal); N40.1 Benign prostatic hyperplasia with lower urinary tract symptoms; R33.9 Retention of urine, unspecified
CPT/HCPCS: 99213

== ENCOUNTER → 2023-04-01 14:34 | Outpatient (BNVA) | payer OTHER, SELFPAY | PROVIDERS: Visit Provider Urology ==

== ENCOUNTER 2023-05-27 08:37 | Observation (INO) | payer OTHER, SELFPAY ==
[2023-05-27] VITALS (11 sets, daily range): BP systolic 124–169; BP diastolic 67–104; PULSE 68–95; RESP 13–23; TEMP 36.4–36.8; O2SAT 95–100; BMI 25.1
--- NOTE | ~2023-05-27 | CT_ITS ---
EXAMINATION: CT ABDOMEN AND PELVIS WITHOUT CONTRAST CLINICAL INFORMATION: Abdominal pain. Back pain. COMPARISON: 02/22/2022 TECHNIQUE: Multidetector volumetric imaging was performed from the superior aspect of the liver through the pubic symphysis. Sagittal and coronal reformatted images were obtained on the technologist's workstation. This CT examination was performed using dose optimization techniques as appropriate, variously including the following: *Automated exposure control *Adjustment of mA and/or kV according to patient size (this includes techniques or standardized protocols for targeted exams where dose is matched to indication/reason for exam; i.e. extremities or head) *Use of iterative reconstruction technique DLP: 462 mGy-cm FINDINGS: LUNG BASES: There is scarring and/or chronic atelectatic change at the left lung base. LIVER, GALLBLADDER, AND BILIARY TREE: The liver is normal in size, shape, and attenuation. No focal hepatic lesion or biliary ductal dilatation is present. There has been a prior cholecystectomy. PANCREAS: Unremarkable. SPLEEN: Unremarkable. ADRENAL GLANDS: Unremarkable. KIDNEYS AND URETERS: The kidneys are normal in size, shape, and attenuation. No hydronephrosis, hydroureter, or calculi seen. There is nonspecific bilateral perinephric stranding. BLADDER: Unremarkable. GASTROINTESTINAL TRACT: The small and large bowel are unremarkable. The appendix is unremarkable. ABDOMINAL WALL: No significant hernia is appreciated. LYMPH NODES: Normal. VASCULAR: There is atherosclerotic plaque of the abdominal aorta and mesenteric vessels. PELVIC VISCERA: Unremarkable. OSSEOUS STRUCTURES: Unremarkable. CT/CT abdomen pelvis wo IV con IMPRESSION: No acute intra-abdominal process identified. Fleischner guidelines were followed.
--- NOTE | ~2023-05-27 | CT_ITS ---
EXAMINATION: CT LUMBAR SPINE WITHOUT CONTRAST CLINICAL INFORMATION: Back pain. Incontinence. COMPARISON: None available. TECHNIQUE: Contiguous axial noncontrast CT scan images of the lumbar spine obtained. Sagittal and coronal reformatted images also obtained. This CT examination was performed using dose optimization techniques as appropriate, variously including the following: *Automated exposure control *Adjustment of mA and/or kV according to patient size (this includes techniques or standardized protocols for targeted exams where dose is matched to indication/reason for exam; i.e. extremities or head) *Use of iterative reconstruction technique DLP; 462 mGy-cm FINDINGS: The alignment is normal. No fracture is seen. There is mild diffuse thoracolumbar disc degenerative change with minimal loss of disc space, mild endplate change and minimal osteophyte formation. There is also multilevel disc bulging throughout the lumbar spine with mild spinal canal and mild bilateral neuroforaminal narrowing. The soft tissues are unremarkable. CT/CT lumbar spine wo IV con IMPRESSION: Mild diffuse thoracolumbar disc degenerative change with multilevel disc bulging resulting in mild spinal canal and neuroforaminal narrowing. No evidence for fracture or malalignment.
--- NOTE | ~2023-05-27 | XR_ITS ---
EXAMINATION: XR CHEST CLINICAL INFORMATION: Chest pain, shortness of breath. COMPARISON: Most recent chest radiograph dated 12/10/2022. TECHNIQUE: Frontal view of the chest was obtained. FINDINGS: Left chest wall pacer/AICD in unchanged position. Sternal wires and mediastinal surgical clips are redemonstrated. Stable cardiomediastinal silhouette. No airspace consolidation. No pleural effusion or pneumothorax. Right upper quadrant surgical clips. XR/XR chest 1V IMPRESSION: No acute cardiopulmonary findings.
--- NOTE | ~2023-05-27 | CT_ITS ---
EXAMINATION: CT HEAD WITHOUT CONTRAST CLINICAL INFORMATION: Dizziness. Fall. On anticoagulation. COMPARISON: CT scan of the head 08/28/2021. TECHNIQUE: Contiguous axial imaging was performed from the skull base to vertex without intravenous administration of contrast. This CT examination was performed using dose optimization techniques as appropriate, variously including the following: *Automated exposure control *Adjustment of mA and/or kV according to patient size (this includes techniques or standardized protocols for targeted exams where dose is matched to indication/reason for exam; i.e. extremities or head) *Use of iterative reconstruction technique DLP: 734 mGy-cm FINDINGS: There is no acute intracranial hemorrhage or abnormal extra-axial collection. No intracranial mass effect or midline shift. Lateral and third ventricles are normal. No hydrocephalus. Astudillo-white matter differentiation is preserved and there is no evidence of acute territorial infarct. The calvarium and skull base are intact. There is a trace left mastoid effusion. No active paranasal sinus disease. CT/CT head/brain wo IV con IMPRESSION: Unremarkable CT scan of the head. No evidence of acute territorial infarct or hemorrhage.
--- NOTE | ~2023-05-27 | XR_ITS ---
EXAMINATION: XR SKELETAL SURVEY CLINICAL INFORMATION: Myeloma with back pain and hip pain. COMPARISON: None available. TECHNIQUE: Whole body bone survey was obtained from skull to ankle joint. FINDINGS: SKULL: Lateral view of skull reveals hyperostosis from talus. No calvarial lytic or sclerotic process seen. Visualized sinuses are widely patent. CERVICAL SPINE: There is mild straightening of cervical lordosis. There is loss of C4-C5 and C5-C6 disc heights with moderate ventral spondylosis. No aggressive lytic or sclerotic process seen. The prevertebral soft tissues are normal. DORSAL SPINE: There is normal thoracic kyphosis. The vertebral heights and alignment is normal. There is no fracture or lytic process. There are median sternotomy sutures and mediastinal latricia from previous CABG. LUMBAR SPINE: There is normal lumbar lordosis. The vertebral heights, alignment and disc heights are normal. No visible fracture or lytic process seen. SI joints are symmetrical and normal. PELVIS: There is normal symmetry of bilateral hip joints and SI joints. No lytic or sclerotic process seen. CHEST: The lungs are expanded and clear. The heart size and pulmonary vascularity is normal. No gross bony abnormality seen. There is arthritic short along the left anterior chest wall with hardware along the left lateral chest. BILATERAL HUMERUS: There are small lucent lesions seen in bilateral proximal and mid humerus suspicious for myeloma. BILATERAL FOREARM: Unremarkable. BILATERAL FEMUR: Unremarkable. BILATERAL TIBIA AND FIBULA: Unremarkable. XR/XR bone survey IMPRESSION: Bilateral small lucent lesions seen in proximal and mid humerus suspicious for myeloma. Rest of the whole body bone survey is unremarkable.
--- NOTE | 2023-05-27 08:47 | ED_ITS ---
HPI - General Adult General Chief complaint: Fall Stated complaint: LOWER BACK PAIN MECHANICAL FALL Time Seen by Provider: 05/27/23 08:42 Source: patient, EMS, RN notes reviewed and old records reviewed Mode of arrival: EMS History of Present Illness HPI narrative: 47-year-old male with a past medical history of CKD, CHF, HTN, HLD, CAD s/p CABG, CVA, Multiple Myeloma not currently being treated, Monoclonal gammopathy, presenting to the ED via EMS complaining of anorexia, abdominal pain, nausea, vomiting, diarrhea, chest pain, shortness of breath, lightheadedness/dizziness, headache, confusion, back pain and fall this morning secondary to feeling lightheaded/dizzy with +head strike, denies LOC. patient admits to taking ASA and Plavix. Also reports urinary incontinence x few days. Denies fever, focal weakness. Related Data Home Medications Medication Instructions Recorded Confirmed albuterol sulfate 90 mcg/actuation 2 puff inhalation Q4H PRN Cough 04/25/20 12/10/22 aerosol inhaler clopidogrel 75 mg tablet 75 mg PO DAILY 04/25/20 12/10/22 insulin glargine 100 unit/mL (3 48 unit subcut QAM 04/25/20 12/10/22 mL) subcutaneous pen (Lantus Solostar U-100 Insulin) pantoprazole 40 mg tablet,delayed 40 mg PO DAILY 04/25/20 12/10/22 release sertraline 25 mg tablet 25 mg PO DAILY 04/25/20 12/10/22 fenofibrate nanocrystallized 145 1 tab PO DAILY 02/04/21 12/10/22 mg tablet insulin lispro 100 unit/mL 10 - 18 unit subcut TID 02/04/21 12/10/22 subcutaneous pen (Humalog KwikPen (U-100) Insulin) pen needle, diabetic 31 gauge x 02/04/21 11/16/22 5/16 (BD Ultra-Fine Short Pen Needle) sertraline 100 mg tablet 100 mg PO DAILY 05/25/21 12/10/22 flash glucose sensor (FreeStyle #1 ea 11/06/21 11/16/22 Neville 14 Day Sensor kit) duloxetine 20 mg capsule,delayed 40 mg PO BID 02/22/22 12/10/22 release docusate sodium 100 mg capsule 100 mg PO BID 03/29/22 12/10/22 nicotine (polacrilex) 2 mg gum 2 mg PO NEEDED 12/10/22 12/10/22 torsemide 20 mg tablet 20 mg PO Q48H 12/10/22 12/10/22 Previous Rx's Medication Instructions Recorded amitriptyline 25 mg tablet 25 mg PO BEDTIME #30 tabs 02/25/22 oxycodone 10 mg tablet 10 mg PO Q6H PRN pain (scale score 02/25/22 7-10) #30 tabs valacyclovir 500 mg tablet 1 tab PO DAILY #60 tabs 05/06/22 calcium carbonate 500 mg-vitamin 1 tab PO TID #90 tabs 10/05/22 D3 10 mcg (400 unit) tablet (Calcium 500 + D) lorazepam 1 mg tablet (Ativan) 1 mg PO BID PRN anxiety #14 tabs 10/28/22 midodrine 2.5 mg tablet 2.5 mg PO TID #90 tabs 12/29/22 aspirin 325 mg tablet 325 mg PO DAILY #90 tabs 01/31/23 atorvastatin 80 mg tablet 80 mg PO BEDTIME #90 tabs 03/03/23 alfuzosin 10 mg tablet,extended 10 mg PO BEDTIME 90 days #90 tabs 04/01/23 release 24 hr calcium carbonate 500 mg-vitamin 1 tab PO DAILY #90 tabs 04/12/23 D3 10 mcg (400 unit) tablet (Calcium 500 + D) Allergies Allergy/AdvReac Type Severity Reaction Status Date / Time egg [EGG] Allergy Severe NAUSEA, Verified 11/16/22 14:33 ITCHY THROAT meperidine [From DEMEROL] Allergy Unknown AGITATION Verified 11/16/22 14:33 Review of Systems 2 Review of Systems: Constitutional: No Fever, No Chills, No Fatigue, No Malaise ENT/Mouth: No Ear Pain, No Nasal Congestion, No sore throat, No Rhinorrhea, No Swallowing Difficulty Eyes: No Eye Pain, No Swelling, No Redness, No Vision Changes Cardiovascular: + Chest Pain, + SOB, No Edema, No Palpitations Respiratory: No Cough, No Sputum, No Dyspnea Gastrointestinal: + Nausea, + Vomiting, + Diarrhea, No Constipation, + Abdominal pain Genitourinary: No irregular bleeding, No Dysuria, No Urinary Frequency, No Hematuria, + Urinary Incontinence, No retention, No Urgency, No Flank Pain, Musculoskeletal: + back pain, + Myalgias, No Joint Swelling Skin: No Skin Lesions, No rash Neuro: +confusion, No Weakness, No Numbness, No Paresthesias, No Loss of Consciousness, +lightheaded/ Dizziness, 6 Headache Yes all other systems are reviewed and are negative Constitutional: Constitutional: Reports as per HPI Neurologic: Denies Abnormal speech present [facility] Past Medical History Attestation statement: The following information was validated with the patient. Source: old records reviewed Medical History Bladder pain Multiple myeloma CVA (cerebral vascular accident) Multiple myeloma CKD (chronic kidney disease) Chronic systolic CHF (congestive heart failure) Monoclonal gammopathy ICD (implantable cardioverter-defibrillator) in place Ischemic cardiomyopathy Diabetes mellitus CAD (coronary artery disease) HLD (hyperlipidemia) HTN (hypertension) Surgical History Hx of cardiac cath (~2017) S/P CABG x 2 (~02/2019) Family History Family History Father Esophageal cancer Diabetes mellitus Mother Diabetes mellitus Brother Diabetes mellitus Sister Diabetes mellitus Cervical cancer Social History Household Members: Spouse and Children Housing: House Are you a primary student career development specialist to a significant other at home: No Do you presently have visiting nurse or other home services: No Alcohol intake: current Alcohol intake frequency: 0-2 drinks per day Alcohol type: hard liquor Patient Tobacco Use Status: Current someday Tobacco user Smoking Start Date: 03/23/21 Tobacco use type: Cigarette Substance Use Type: Marijuana Advance Directives: Yes Advance Directives on File: Yes Advance Directives Date on File: 08/31/21 service: No Current occupational status: disabled Physical Exam ED Vital Signs: Vital Signs - 24 hr 05/27/23 08:55 05/27/23 09:59 05/27/23 09:59 Temperature 98.2 F Pulse Rate 95 80 85 Respiratory Rate 22 H Blood Pressure 168/104 H 132/78 136/76 Pulse Oximetry 99 Oxygen Delivery Method Room Air 05/27/23 10:01 05/27/23 11:20 05/27/23 12:40 Temperature Pulse Rate 85 71 74 Respiratory Rate 23 H 20 Blood Pressure 127/75 124/67 140/78 H Pulse Oximetry 98 Oxygen Delivery Method Room Air 05/27/23 14:40 05/27/23 16:13 Temperature Pulse Rate 82 69 Respiratory Rate 20 16 Blood Pressure 155/86 H 152/82 H Pulse Oximetry Oxygen Delivery Method Room Air BMI result Body Mass Index 25.1 Const General: cooperative, healthy appearing and no acute distress Orientation/consciousness: patient oriented x3 Limitations: no limitations HENMT Head: Yes normal to inspection and Yes atraumatic Ears: hearing grossly normal bilaterally General nose exam: Normal external nose present Face and sinus: Yes normal facial exam Throat: Yes posterior oropharynx normal, Yes uvula midline and No peritonsillar mass Eyes General: appearance normal, both eyes and all related structures Pupils: Equal, round and reactive pupils present EOM: EOMs intact bilaterally Neck Neck: Yes normal visual inspection and Yes no meningeal signs Resp Effort & Inspection: normal respiratory effort and no respiratory distress Auscultation: clear to auscultation bilaterally and no wheezes Cardio Rate: regular rate Heart sounds: S1 normal heart sound present and S2 normal heart sound present GI Inspection: Yes normal to inspection Palpation (GI): Soft to palpation, nontender, no guarding and not rigid General: Yes no CVA tenderness Back/Spine/Pelvis Other: No midline cervical/thoracic/lumbar spinous tenderness/step-off or deformity. + diffuse lumbar paraspinal/MSK tenderness to palpation. No ecchymosis/erythema Back: no CVA tenderness Skin Rashes: no rashes Wounds: no wounds Neuro Other: Rectal tone WNL. Reported decreased perianal sensation to light touch General: patient oriented x3, tone normal, moves all extremities, no meningeal signs, no focal motor deficits and CN's II-XI intact bilaterally Cranial nerves: Yes CN's II-XII intact bilaterally, Yes Equal, round and reactive pupils present and Yes Bilaterally intact EOM present Cognition (Neuro): normal cognition Speech: No Abnormal speech present Motor exam (neuro): 5/5 motor strength present throughout Extrem General: Yes normal to inspection Course Course Course Narrative: -0909--leukocytosis of 17.3 > likely reactive from pain, dry heaving/nausea and vomiting. Low suspicion for severe sepsis -H&H stable. -1227--ESR/CRP mildly elevated. Chronic CKD. Magnesium will low 1.4 >2g IV repletion ordered. CPK mildly elevated. -BNP chronically elevated. lipase mildly elevated to 147 CT head/brain wo IV con IMPRESSION: Unremarkable CT scan of the head. No evidence of acute territorial infarct or hemorrhage. XR chest 1V IMPRESSION: No acute cardiopulmonary findings. -1230--patient was in MRI, however he has a defibrillator without any known information, cannot obtain MRI today. Will obtain CT AP and CT lumbar spine. As well as postvoid residual CT abdomen pelvis wo IV con IMPRESSION: No acute intra-abdominal process identified. Fleischner guidelines were followed. CT lumbar spine wo IV con IMPRESSION: Mild diffuse thoracolumbar disc degenerative change with multilevel disc bulging resulting in mild spinal canal and neuroforaminal narrowing. No evidence for fracture or malalignment. > 1630--on re-evaluation patient complaining continued back pain. Plan is for admission for further evaluation Medications Administered Discontinued Medications Generic Name Dose Route Start Last Admin Trade Name Freq PRN Reason Stop Dose Admin Cyclobenzaprine HCl 10 mg 05/27/23 14:49 05/27/23 14:53 Cyclobenzaprine Hcl 10 Mg Tablet PO 05/27/23 14:50 10 mg ONCE ONE Administration Diphenhydramine HCl 50 mg 05/27/23 09:04 05/27/23 09:22 Diphenhydramine Hcl 50 Mg/Ml Vial IVPUSH 05/27/23 09:05 50 mg ONCE ONE Administration Droperidol 0.625 mg 05/27/23 10:04 05/27/23 10:15 Droperidol 5 Mg/2 Ml Vial IVPUSH 05/27/23 10:05 0.625 mg ONCE ONE Administration Sodium Chloride 1,000 mls @ 999 mls/hr 05/27/23 09:15 05/27/23 11:00 Ns IV 05/27/23 10:15 Infused .Q1H1M MAGUI Infusion Magnesium Sulfate 2 gm in 50 mls @ 25 mls/hr 05/27/23 12:06 05/27/23 14:31 Magnesium Sulfate/H2o IV 05/27/23 14:05 Infused ONCE ONE Infusion Metoclopramide HCl 10 mg 05/27/23 09:04 05/27/23 09:22 Metoclopramide Hcl 10 Mg/2 Ml Vial IVPUSH 05/27/23 09:05 10 mg ONCE ONE Administration Medical Decision Making Medical Decision Making [facility] Narrative: 47-year-old male with a past medical history of CKD, CHF, HTN, HLD, CAD s/p CABG, CVA, Multiple Myeloma not currently being treated, Monoclonal gammopathy, presenting to the ED via EMS complaining of anorexia, abdominal pain, nausea, vomiting, diarrhea, chest pain, shortness of breath, lightheadedness/dizziness, headache, confusion, back pain and fall this morning secondary to feeling lightheaded/dizzy with +head strike, denies LOC. Also reports urinary incontinence x few days. On exam hypertensive, tachypneic, crying, writhing around in stretcher, no midline spinous tenderness or focal neuro deficits. Rectal tone WNL, reported decreased perianal sensation. Concern for ICH vs CVA/TIA vs metabolic abnormalities vs ACS vs MSK pain/strain vs cauda equina with urinary incontinence. lower suspicion for intra-abdominal pathology including appendicitis/diverticulitis or pneumonia. rule out infectious etiology. Low suspicion for severe sepsis Plan: EKG, labs, UA, CXR, head CT, MR lumbar spine, IVF, pain control Please refer to course for remaining clinical decision making, interpretation of labs/imaging results, and discussions with consultants and/or family members. Differential Diagnosis Differential Diagnoses: The differential diagnosis associated with the presentation includes As above Admission/Observation Consideration of admission/observation: Escalation of care including admission/observation considered Lab Data [facility] Lab Attestation statement: I reviewed the patient's lab results. 05/27/23 08:51 05/27/23 09:55 Labs: Lab Results 05/27/23 05/27/23 05/27/23 Range/Units 08:44 08:51 09:55 WBC 17.3 H (4.8-10.8) X10*3/uL RBC 3.78 L (4.60-5.80) X10*6/uL Hgb 10.7 L (14.0-18.0) g/dl Hct 32.4 L (42.0-52.0) % MCV 85.7 (80.0-98.0) fL MCH 28.3 (27.0-33.0) pg MCHC 33.0 (31.0-36.0) g/dl RDW 13.6 (11.0-16.0) % Plt Count 407 H D (160-400) X10*3/uL MPV 10.1 (9.4-12.4) fL Immature Gran % (Auto) 0.4 (0.0-0.4) % Neut % (Auto) 75.9 H (45-73) % Lymph % (Auto) 17.0 L (20-40) % [place] % (Auto) 5.0 (2-11) % Eos % (Auto) 1.4 (0-4) % Baso % (Auto) 0.3 (0-2) % Lymph # (Auto) 2.9 (1.2-4.9) X10*3/uL [place] # (Auto) 0.9 (0.1-1.2) X10*3/uL Eos # (Auto) 0.2 (0.0-0.4) X10*3/uL Baso # (Auto) 0.1 (0.0-0.2) X10*3/uL Abs Immat Gran (auto) 0.07 H (0.00-0.03) X10*3/uL Absolute Neuts (auto) 13.1 H (2.0-8.3) x10*3/uL Absolute Nucleated RBC 0.000 (0.0-0.012) X10*3/uL Nucleated RBC % (auto) 0.0 (0.0-0.2) /100WBC ESR 34 H (0-15) MM/HR PT 12.5 (11.1-13.3) SEC INR 1.0 (0.9-1.1) Sodium 140 (135-145) mmol/L Potassium 3.8 (3.3-5.1) mmol/L Chloride 110 H (96-108) mmol/L Carbon Dioxide 24 (22-29) mmol/L Anion Gap 10 L (12-20) BUN 19 H (9-16) mg/dL Creatinine 1.88 H (0.5-1.4) mg/dL Estim Creat Clear Calc 48.0 Estimated GFR 38 POC Glucose 259 H (60-115) mg/dL Random Glucose 256 H (60-115) mg/dL Calcium 9.2 D (8.4-10.2) mg/dL Magnesium 1.4 L* (1.6-2.6) mg/dL Total Bilirubin 0.5 (0.0-1.0) mg/dL Direct Bilirubin 0.2 (0.0-0.5) mg/dL AST 22 (5-37) U/L ALT 13 (0-40) U/L Alkaline Phosphatase 52 (39-117) U/L Total Creatine Kinase 232 H (38-174) U/L Troponin I High Sens 13.0 (<3.5-35.0) ng/L C-Reactive Protein 2.34 H (< or = 0.50) mg/dL B-Natriuretic Peptide 141 H (<100) pg/mL Total Protein 6.8 (6.5-8.0) g/dL Albumin 4.0 (3.5-5.0) g/dL Lipase 147 H (8-78) U/L Urine Color Urine Appearance Urine pH (5.0-9.0) Ur Specific [place] (1.005-1.025) Urine Protein (Neg-Trace) mg/dL Urine Glucose (UA) (Negative) mg/dL Urine Ketones (Negative) mg/dL Urine Blood (Negative) Urine Nitrite (Negative) Ur Leukocyte Esterase (Negative) Urine Opiates Screen (Not Detect) Urine Fentanyl Screen (Not Detect) Ur Barbiturates Screen (Not Detect) Ur Phencyclidine Scrn (Not Detect) Ur Amphetamines Screen (Not Detect) U Benzodiazepines Scrn (Not Detect) Urine Cocaine Screen (Not Detect) U Marijuana (THC) Screen (Not Detect) Ethyl Alcohol < 10 mg/dL COVID-19 (KATE) Negative (Negative) COVID-19 Clin Com See Note Influenza Type A (CASSIUS) Negative (Negative) Influenza Type B (CASSIUS) Negative (Negative) Influenza A & B Note See Note 05/27/23 Range/Units 15:39 WBC (4.8-10.8) X10*3/uL RBC (4.60-5.80) X10*6/uL Hgb (14.0-18.0) g/dl Hct (42.0-52.0) % MCV (80.0-98.0) fL MCH (27.0-33.0) pg MCHC (31.0-36.0) g/dl RDW (11.0-16.0) % Plt Count (160-400) X10*3/uL MPV (9.4-12.4) fL Immature Gran % (Auto) (0.0-0.4) % Neut % (Auto) (45-73) % Lymph % (Auto) (20-40) % [place] % (Auto) (2-11) % Eos % (Auto) (0-4) % Baso % (Auto) (0-2) % Lymph # (Auto) (1.2-4.9) X10*3/uL [place] # (Auto) (0.1-1.2) X10*3/uL Eos # (Auto) (0.0-0.4) X10*3/uL Baso # (Auto) (0.0-0.2) X10*3/uL Abs Immat Gran (auto) (0.00-0.03) X10*3/uL Absolute Neuts (auto) (2.0-8.3) x10*3/uL Absolute Nucleated RBC (0.0-0.012) X10*3/uL Nucleated RBC % (auto) (0.0-0.2) /100WBC ESR (0-15) MM/HR PT (11.1-13.3) SEC INR (0.9-1.1) Sodium (135-145) mmol/L Potassium (3.3-5.1) mmol/L Chloride (96-108) mmol/L Carbon Dioxide (22-29) mmol/L Anion Gap (12-20) BUN (9-16) mg/dL Creatinine (0.5-1.4) mg/dL Estim Creat Clear Calc Estimated GFR POC Glucose (60-115) mg/dL Random Glucose (60-115) mg/dL Calcium (8.4-10.2) mg/dL Magnesium (1.6-2.6) mg/dL Total Bilirubin (0.0-1.0) mg/dL Direct Bilirubin (0.0-0.5) mg/dL AST (5-37) U/L ALT (0-40) U/L Alkaline Phosphatase (39-117) U/L Total Creatine Kinase (38-174) U/L Troponin I High Sens (<3.5-35.0) ng/L C-Reactive Protein (< or = 0.50) mg/dL B-Natriuretic Peptide (<100) pg/mL Total Protein (6.5-8.0) g/dL Albumin (3.5-5.0) g/dL Lipase (8-78) U/L Urine Color Yellow Urine Appearance Clear Urine pH 7.5 (5.0-9.0) Ur Specific [place] 1.015 (1.005-1.025) Urine Protein Trace (Neg-Trace) mg/dL Urine Glucose (UA) 500 H (Negative) mg/dL Urine Ketones Negative (Negative) mg/dL Urine Blood Negative (Negative) Urine Nitrite Negative (Negative) Ur Leukocyte Esterase Negative (Negative) Urine Opiates Screen Not Detected (Not Detect) Urine Fentanyl Screen Not Detected (Not Detect) Ur Barbiturates Screen Not Detected (Not Detect) Ur Phencyclidine Scrn Not Detected (Not Detect) Ur Amphetamines Screen Not Detected (Not Detect) U Benzodiazepines Scrn Not Detected (Not Detect) Urine Cocaine Screen Not Detected (Not Detect) U Marijuana (THC) Screen POSITIVE H (Not Detect) Ethyl Alcohol mg/dL COVID-19 ([facility]ATE) (Negative) COVID-19 Clin Com Influenza Type A (CASSIUS) (Negative) Influenza Type B (CASSIUS) (Negative) Influenza A & B Note Independent Interpretation I performed an independent interpretation of an: EKG, Plain X-Ray and CT Scan Radiology Impression Discussion of test interpretation with radiology: I have reviewed the radiologist's reading. Independent Historian Clinical information obtained from an independent historian. History obtained from or confirmed by: EMS External Record Review External record reviewed: Inpatient record, Office record, Outpatient record, Prior outpatient labs, Prior outpatient radiology, Primary care record and Outside ED record Tests considered The following testing was considered but not selected: As above Prescription Management I considered prescription management with: Pain Medication Chronic Conditions Patient?s care impacted by: Hypertension and Cancer Discharge Plan Discharge Clinical Impression: Back pain, Nausea & vomiting, Fall, Lightheadedness Patient Disposition: Admitted As Inpatient
[2023-05-27 08:49] LABS: Glucose, Whole Blood 259 mg/dL (60-115)
[2023-05-27 08:55] LABS: MANUAL DIFF FLAG NO
[2023-05-27 09:02] LABS: Basophils Absolute Auto 0.1 X10*3/uL (0.0-0.2); Basophils Percent Auto 0.3 % (0-2); Eosinophils Absolute Auto 0.2 X10*3/uL (0.0-0.4); Eosinophils Percent Auto 1.4 % (0-4); Hematocrit 32.4 % (42.0-52.0); Hemoglobin 10.7 g/dl (14.0-18.0); Imm Gran Abs Auto 0.07 X10*3/uL (0.00-0.03); Imm Gran Pct Auto 0.4 % (0.0-0.4); Lymphocytes Absolute Auto 2.9 X10*3/uL (1.2-4.9); Mean Corpuscular Hemoglobin 28.3 pg (27.0-33.0); Mean Corpuscular Volume 85.7 fL (80.0-98.0); Mean Platelet Volume 10.1 fL (9.4-12.4); Monocytes Absolute Auto 0.9 X10*3/uL (0.1-1.2); Neutrophils Absolute Auto 13.1 x10*3/uL (2.0-8.3); Neutrophils Percent Auto 75.9 % (45-73); Platelet Count 407 X10*3/uL (160-400); Red Blood Count 3.78 X10*6/uL (4.60-5.80); Red Cell Distribution Width 13.6 % (11.0-16.0); White Blood Count 17.3 X10*3/uL (4.8-10.8)
--- NOTE | 2023-05-27 09:05 | ECG_ITS ---
Test Reason : DIZZINESS Blood Pressure : / mmHG Vent. Rate : 082 BPM Atrial Rate : 082 BPM P-R Int : 164 ms QRS Dur : 078 ms QT Int : 408 ms P-R-T Axes : 063 -01 055 degrees QTc Int : 476 ms Normal sinus rhythm Inferior infarct (cited on or before 30-AUG-2021) Abnormal ECG When compared with ECG of 10-DEC-2022 23:49, No significant change was found Heart rate has decreased Referred By: Asia Oreilly Electronically Signed By:GARETH QUINTANILLA MD
[2023-05-27] MEDS: diphenhydrAMINE HCL 50 MG/ML VIAL IVPUSH (09:22)
[2023-05-27] MEDS: Metoclopramide HCl 10 MG/2 ML VIAL IVPUSH (09:22)
[2023-05-27] MEDS: 0.9 % Sodium Chloride 1,000 ML 999 ML IV (09:25)
[2023-05-27 10:11] LABS: Anion Gap 10 (12-20)
[2023-05-27 10:14] LABS: Blood Urea Nitrogen 19 mg/dL (9-16); Calcium 9.2 mg/dL (8.4-10.2); Carbon Dioxide 24 mmol/L (22-29); Chloride 110 mmol/L (96-108); Estimated Glomerular Filt Rate 38; Glucose Random 256 mg/dL (60-115); Potassium 3.8 mmol/L (3.3-5.1); Sodium 140 mmol/L (135-145)
[2023-05-27] MEDS: droPERidol 5 MG/2 ML VIAL 0.625 MG IVPUSH (10:15)
[2023-05-27 10:16] LABS: Prothrombin Time 12.5 SEC (11.1-13.3)
[2023-05-27 10:21] LABS: COVID-19 Test Negative (Negative); IDNOW Serial# 08D9AD1C; IDNOW Serial# BCCEAD1C; Influenza A Negative (Negative); Influenza B2 Negative (Negative)
[2023-05-27 10:22] LABS: B Type Natriuretic Peptide 141 pg/mL (<100)
[2023-05-27 10:43] LABS: Erythrocyte Sedimentation Rate 34 MM/HR (0-15)
[2023-05-27 12:06] LABS: Alanine Aminotransferase 13 U/L (0-40); Alkaline Phosphatase 52 U/L (39-117); Aspartate Amino Transferase 22 U/L (5-37); Bilirubin Direct 0.2 mg/dL (0.0-0.5); Bilirubin Total 0.5 mg/dL (0.0-1.0); C Reactive Protein 2.34 mg/dL (< or = 0.50); Ethanol < 10 mg/dL; Lipase 147 U/L (8-78); Magnesium 1.4 mg/dL (1.6-2.6); Total Protein 6.8 g/dL (6.5-8.0)
[2023-05-27] MEDS: Magnesium Sulfate/H2O 2 GM/50 ML PIGGYBACK IV (12:44)
--- NOTE | 2023-05-27 13:49 | PC.NURSE ---
patient resting in bed, appears to be sleeping. respirations equl and unlabored. patient appears to be in no distress, awaiting CT scan results. unable to get MRI due to internal defibrillator. patient on tele monitor
[2023-05-27] MEDS: Cyclobenzaprine HCl 10 MG TABLET PO (14:53)
[2023-05-27 15:47] LABS: Appearance Urine Clear; Color Urine Yellow; Glucose Urine UA 500 mg/dL (Negative); Leukocyte Esterase Urine Negative (Negative); Nitrite Urine Negative (Negative); PH 7.5 (5.0-9.0); Specific Gravity - Urine 1.015 (1.005-1.025); Urine Blood Negative (Negative); Urine Ketones Negative (Negative); Urine Protein Trace mg/dL (Neg-Trace)
[2023-05-27 15:55] LABS: Amphetamine Screen Urine Not Detected (Not Detect); Barbiturates, Urine Not Detected (Not Detect); Benzodiazepines Screen Urine Not Detected (Not Detect); Cannabinoid Screen Urine POSITIVE (Not Detect); Cocaine Screen Urine Not Detected (Not Detect); Fentanyl, urine Not Detected (Not Detect); Opiate Screen Urine Not Detected (Not Detect); Phencyclidine Screen Urine Not Detected (Not Detect)
--- NOTE | 2023-05-27 16:18 | PC.NURSE ---
pt resting comfortably with eyes closed, breathing even and unlabored. no apparent distress noted at this time.
--- NOTE | 2023-05-27 17:12 | PM.IMHP ---
History of Present Illness Date of Service: 05/27/23 Attending physician on admission: [facility] Chief Complaint: n/v, po intolerance, back pain, lightheadedness 47 year old male with history multiple myeloma (not currently on treatment), CKD stage 3, insulin dependent type 2 diabetes, htn, hld, CAD s/p CABG, nonischemic cardiomyopathy ICD in place, hx CVA, monocloncal gammopathy, and HFrEF presented to the ED for evaluation of nausea, vomiting and diarrhea ongoing for three days. He states has not been able to eat or drink in 3 days. Last episode of vomiting was yesterday though continues with dry heaves and nausea. Reports diarrhea all day yesterday. There is diffuse abd pain. Reports feeling lightheaded this morning and confused and sustained a fall with head strike but no LOC. He states he still feels dizzy but describes a room spinning sensation. He is also reporting severe low back pain, polyarthralgia,bilateral eye pain, blurred vision, bilateral lower extremity weakness and paresthesias but these symptoms have been ongoing for months. He follows with Dr. barfield in oncology but states his treatment lapsed because he had to leave the area for a time and has not yet resumed treatment. He does smoke marijuana regularly, no other drug use. Occasional etoh use. Reports smoking cessation of 7 months, but resumed yesterday. No fevers, chills, recent illness, sick contacts, eating bad foods, melena, hematochezia, syncope, saddle anesthesia, bowel/bladder dysfunction, shortness of breath, or chest pain. In the ED, VSS, slightly hypertensive to 155/82. There is a leukocytosis 17.3, H/H 10.7/32.4% consistent with baseline. Renal function baseline, elecrolytes normal, except for mag 1.4. Glucose 256. Total CK 232. CRP 2.34, ESR 34. Lipase 147. UA unremarkable. Utox screen positive for MJ. Negative COVID-[address] negative for any acute intracranial abnormality. Chest x-ray negative. CT abdomen/pelvis negative for any acute intra abdominal process. CT lumbar spine shows mild diffuse thoracic: Are disc degenerative change with multilevel disc bulging resulting in mild spinal canal and neural foraminal narrowing but no evidence for acute fracture malalignment. In the ED, has received 2 g IV morphine, 10 mg Reglan, 10 mg cyclobenzaprine, 1 L IV NS, 50 mg Benadryl, and 0.625 mg droperidol. Pt will be observed overnight for persistent nausea and dry heaves with PO intolerance. Review of Systems Review of Systems: General: No fevers, malaise, unintentional weight loss HEENT: No blurred vision, diplopia. No sore throat, nasal congestion, rhinorrhea, sinus pain, ear pain Cardiovascular: No chest pain, palpitations, or leg edema Respiratory: No shortness of breath, wheezing, cough GI: +abd pain, +n/v/d. No constipation, melena, hematochezia : No dysuria, hematuria, increased urinary frequency, decreased urinary output MSK: No myalgia. +back pain, +arthralgia Neuro: No headaches. +ble weakness, +paresthesias Skin: No rashes or lesions [facility] Medical History Bladder pain Multiple myeloma CVA (cerebral vascular accident) Multiple myeloma CKD (chronic kidney disease) Chronic systolic CHF (congestive heart failure) Monoclonal gammopathy ICD (implantable cardioverter-defibrillator) in place Ischemic cardiomyopathy Diabetes mellitus CAD (coronary artery disease) HLD (hyperlipidemia) HTN (hypertension) Family History Father Esophageal cancer Diabetes mellitus Mother Diabetes mellitus Brother Diabetes mellitus Sister Diabetes mellitus Cervical cancer Surgical History Hx of cardiac cath (~2017) S/P CABG x 2 (~02/2019) Household Members: Spouse and Children Housing: House Are you a primary college and career counselor to a significant other at home: No Do you presently have visiting nurse or other home services: No Alcohol intake: current Alcohol intake frequency: 0-2 drinks per day Alcohol type: hard liquor Patient Tobacco Use Status: Current everyday Tobacco user Smoking Start Date: 03/23/21 Tobacco use type: Cigarette Cigarettes Per Day: 10 Substance Use Type: Marijuana Advance Directives: Yes Advance Directives on File: Yes Advance Directives Date on File: 08/31/21 Nutrition Risks: Acute nausea or vomiting x1 week service: No Current occupational status: disabled Meds Allergies Allergy/AdvReac Type Severity Reaction Status Date / Time egg [EGG] Allergy Severe NAUSEA, Verified 11/16/22 14:33 ITCHY THROAT meperidine [From DEMEROL] Allergy Unknown AGITATION Verified 11/16/22 14:33 Home Medications Medication Instructions Recorded Confirmed Last Taken Type albuterol sulfate 90 mcg/actuation 2 puff inhalation Q4H PRN Cough 04/25/20 05/27/23 11/25/21 History aerosol inhaler clopidogrel 75 mg tablet 75 mg PO DAILY 04/25/20 05/27/23 11/25/21 History insulin glargine 100 unit/mL (3 48 unit subcut DAILY 04/25/20 05/27/23 11/25/21 History mL) subcutaneous pen (Lantus Solostar U-100 Insulin) pantoprazole 40 mg tablet,delayed 40 mg PO DAILY@0630 04/25/20 05/27/23 11/25/21 History release sertraline 25 mg tablet 25 mg PO DAILY 04/25/20 05/27/23 11/25/21 History fenofibrate nanocrystallized 145 1 tab PO DAILY 02/04/21 05/27/23 11/25/21 History mg tablet insulin lispro 100 unit/mL 13 unit subcut TID 02/04/21 05/27/23 11/25/21 History subcutaneous pen (Humalog KwikPen (U-100) Insulin) pen needle, diabetic 31 gauge x 02/04/21 11/16/22 11/25/21 History /16 (BD Ultra-Fine Short Pen Needle) sertraline 100 mg tablet 100 mg PO DAILY 05/25/21 05/27/23 11/25/21 History flash glucose sensor (FreeStyle #1 ea 11/06/21 11/16/22 11/25/21 History Neville 14 Day Sensor kit) duloxetine 20 mg capsule,delayed 40 mg PO BID 02/22/22 05/27/23 Unknown History release docusate sodium 100 mg capsule 100 mg PO BID 03/29/22 05/27/23 Unknown History torsemide 20 mg tablet 20 mg PO Q48H 12/10/22 05/27/23 Unknown History tamsulosin 0.4 mg capsule 0.4 mg PO BEDTIME 05/27/23 05/27/23 Unknown History Physical Exam Vital Signs and Narrative: Vital Signs: Last Vital Signs Temp 98.2 F 05/27/23 08:55 Pulse 69 05/27/23 16:13 Resp 16 05/27/23 16:13 BP 152/82 H 05/27/23 16:13 Pulse Ox 98 05/27/23 12:40 O2 Del Method Room Air 05/27/23 14:40 BMI result Body Mass Index 25.1 Constitutional - Awake and Alert, No apparent distress Eyes - PERRLA, EOMI Cardiovascular - S1S2, RRR, No edema Respiratory - Normal lung expansion, Normal respiratory effort, No respiratory distress, CTA bilaterally Gastrointestinal - epigastric ttp. ND; +BS; No rebound or guarding Extremities - no calf tenderness bilaterally, no swelling Skin - Warm/Dry Neurological - Alert & oriented x3, CN II-XII in tact, 4/5 strength BUE and BLE, decreased sensation BLE Psychological - Appropriate affect Results Labs 05/28/23 04:59 05/28/23 04:59 Labs: Laboratory Results - last 24 hr 05/27/23 05/27/23 05/27/23 08:44 08:51 09:55 MCV 85.7 MCH 28.3 MCHC 33.0 RDW 13.6 Plt Count 407 H D MPV 10.1 Immature Gran % (Auto) 0.4 Neut % (Auto) 75.9 H Lymph % (Auto) 17.0 L [place] % (Auto) 5.0 Eos % (Auto) 1.4 Baso % (Auto) 0.3 Lymph # (Auto) 2.9 [place] # (Auto) 0.9 Eos # (Auto) 0.2 Baso # (Auto) 0.1 Abs Immat Gran (auto) 0.07 H Absolute Neuts (auto) 13.1 H Absolute Nucleated RBC 0.000 Nucleated RBC % (auto) 0.0 ESR 34 H PT 12.5 INR 1.0 Anion Gap 10 L Estim Creat Clear Calc 48.0 Estimated GFR 38 POC Glucose 259 H Random Glucose 256 H Calcium 9.2 D Magnesium 1.4 L* Total Bilirubin 0.5 Direct Bilirubin 0.2 AST 22 ALT 13 Alkaline Phosphatase 52 Total Creatine Kinase 232 H C-Reactive Protein 2.34 H B-Natriuretic Peptide 141 H Total Protein 6.8 Albumin 4.0 Lipase 147 H Urine Color Urine Appearance Urine pH Ur Specific [place] Urine Protein Urine Glucose (UA) Urine Ketones Urine Blood Urine Nitrite Ur Leukocyte Esterase Urine Opiates Screen Urine Fentanyl Screen Ur Barbiturates Screen Ur Phencyclidine Scrn Ur Amphetamines Screen U Benzodiazepines Scrn Urine Cocaine Screen U Marijuana (THC) Screen Ethyl Alcohol < 10 COVID-19 (KATE) Negative COVID-19 Clin Com See Note Influenza Type A (CASSIUS) Negative Influenza Type B (CASSIUS) Negative Influenza A & B Note See Note 05/27/23 15:39 MCV MCH MCHC RDW Plt Count MPV Immature Gran % (Auto) Neut % (Auto) Lymph % (Auto) [place] % (Auto) Eos % (Auto) Baso % (Auto) Lymph # (Auto) [place] # (Auto) Eos # (Auto) Baso # (Auto) Abs Immat Gran (auto) Absolute Neuts (auto) Absolute Nucleated RBC Nucleated RBC % (auto) ESR PT INR Anion Gap Estim Creat Clear Calc Estimated GFR POC Glucose Random Glucose Calcium Magnesium Total Bilirubin Direct Bilirubin AST ALT Alkaline Phosphatase Total Creatine Kinase C-Reactive Protein B-Natriuretic Peptide Total Protein Albumin Lipase Urine Color Yellow Urine Appearance Clear Urine pH 7.5 Ur Specific [place] 1.015 Urine Protein Trace Urine Glucose (UA) 500 H Urine Ketones Negative Urine Blood Negative Urine Nitrite Negative Ur Leukocyte Esterase Negative Urine Opiates Screen Not Detected Urine Fentanyl Screen Not Detected Ur Barbiturates Screen Not Detected Ur Phencyclidine Scrn Not Detected Ur Amphetamines Screen Not Detected U Benzodiazepines Scrn Not Detected Urine Cocaine Screen Not Detected U Marijuana (THC) Screen POSITIVE H Ethyl Alcohol COVID-19 (KATE) COVID-19 Clin Com Influenza Type A (CASSIUS) Influenza Type B (CASSIUS) Influenza A & B Note Imaging Radiologist's Impressions: Impressions Chest X-Ray 05/27/23 09:37 IMPRESSION: No acute cardiopulmonary findings. Head CT 05/27/23 09:39 IMPRESSION: Unremarkable CT scan of the head. No evidence of acute territorial infarct or hemorrhage. Abdomen/Pelvis CT 05/27/23 13:40 IMPRESSION: No acute intra-abdominal process identified. Fleischner guidelines were followed. Lumbar Spine CT 05/27/23 13:40 IMPRESSION: Mild diffuse thoracolumbar disc degenerative change with multilevel disc bulging resulting in mild spinal canal and neuroforaminal narrowing. No evidence for fracture or malalignment. Assessment and Plan (1) Nausea & vomiting: Status: Acute Plan 47 year old male with history multiple myeloma (not currently on treatment), CKD stage 3, insulin dependent type 2 diabetes, htn, hld, CAD s/p CABG, nonischemic cardiomyopathy ICD in place, hx CVA, monocloncal gammopathy, and HFrEF to be observed for intractable nausea with dry heaves and PO intolerance. #Nausea and PO intolerance -Vomiting resolved. ?cyclic vomiting syndrome r/t cannibus use -PRN antiemetics -continue ivf -clear liquid diet, advance as tolerated #Lightheadedness -head ct negative, no acute focal neuro deficit -no orthostatic hypotension -continue ivf #Chronic low back pain -associated paresethesias and ble weakness, both chronic -CT lumbar spine shows severe degenerative disc space disease with bilateral neuroforaminal narrowing but no central canal stenosis -start gabapenin 300mg nightly -outpt follow up #Multiple myeloma -follow up with Dr. Hamilton slade to resume treatment #Insulin dependent type 2 diabetes- with hyperglycemia -dose adjusted basal insulin -poc glucose -advance to diabetic diet -humalog on ss #HTN -bp reasonably controlled -continue home antihypertensives #HFrEF -clinically euvolemic appering -continue po diuretics #CAD/HLD -continue DAPT, fenofibrate, statin #Anemia of chronic disease -h/h baseline #ckd stage 3 -renal function baseline DVT prophylaxis- heparin full code Quality Stroke Does the patient have a stroke diagnosis?: No VTE Prior VTE?: No VTE Risk Level:: Medical - moderate - high VTE Device Contraindication: Treatment Not Indicated VTE Drug Contraindication: N/A - Med Ordered
--- NOTE | 2023-05-27 17:17 | PC.NURSE ---
hospitalist at bedside
[2023-05-27] MEDS: 0.9 % Sodium Chloride 1,000 ML 100 ML IVCONT (17:58)
[2023-05-27] MEDS: Heparin Sodium,Porcine 5,000 UNIT/ML VIAL 5000 UNIT SUBCUT (18:02)
[2023-05-27] MEDS: Morphine Sulfate 2 MG/ML CARTRIDGE IVPUSH (18:03)
--- NOTE | 2023-05-27 19:09 | PC.NURSE ---
pt stood and got into hospital bed with minimal assist
--- NOTE | 2023-05-27 19:10 | MHC.EDTECH ---
Patient given clear tray
[2023-05-27] MEDS: ondansetron HCL 4 MG/2 ML VIAL IVPUSH (20:16)
[2023-05-27 21:05] LABS: Glucose, Whole Blood 207 mg/dL (60-115)
--- NOTE | 2023-05-27 21:27 | PHA.MEDREC ---
Pharmacy Consult ? Medication Reconciliation Pharmacy has completed the medication reconciliation.PT SOBBING AND REFUSING TO SPEAK WHEN I TRIED TO SPEAK TO HIM SEVERAL TIMES. HIS WAS UNREACHABLE TO DISCUSS HIS MEDICATIONS SO MED REC COMPLETE USING CLAIM HISTORY.
[2023-05-27] MEDS: Acetaminophen 325 MG TABLET 650 MG PO (21:39)
[2023-05-27] MEDS: Insulin Lispro 100 UNIT/ML 3 ML VIAL SUBCUT (21:40)
[2023-05-27] MEDS: oxyCODONE HCl Immed Release 5 MG TABLET PO (21:40)
[2023-05-27] MEDS: Atorvastatin Calcium 80 MG TABLET PO (22:28)
[2023-05-27] MEDS: Tamsulosin HCL 0.4 MG CAPSULE PO (22:28)
[2023-05-27] MEDS: DULoxetine HCl 20 MG CAPSULE.DR 40 MG PO (22:28)
[2023-05-27] MEDS: Torsemide 20 MG TABLET PO (22:28)
[2023-05-27] MEDS: Amitriptyline HCl 25 MG TABLET PO (22:28)
[2023-05-28] VITALS (7 sets, daily range): BP systolic 102–127; BP diastolic 56–80; PULSE 67–87; RESP 16–20; TEMP 36–36.9; O2SAT 96–100
[2023-05-28] MEDS: 0.9 % Sodium Chloride Flush 3 ML SYRINGE IVFLUSH (01:29)
[2023-05-28] MEDS: Prochlorperazine Edisylate 10 MG/2 ML VIAL 5 MG IVPUSH (02:26)
[2023-05-28] MEDS: oxyCODONE HCl Immed Release 5 MG TABLET PO ×4 (02:27→21:11)
[2023-05-28] MEDS: 0.9 % Sodium Chloride 1,000 ML 100 ML IVCONT ×2 (04:00→14:58)
[2023-05-28] MEDS: Acetaminophen 325 MG TABLET 650 MG PO ×2 (04:11→17:01)
[2023-05-28] MEDS: Cyclobenzaprine HCl 10 MG TABLET PO ×2 (04:42→17:07)
[2023-05-28] MEDS: Heparin Sodium,Porcine 5,000 UNIT/ML VIAL 5000 UNIT SUBCUT ×2 (05:37→17:02)
[2023-05-28] MEDS: Omeprazole 20 MG CAPSULE.DR PO (05:38)
[2023-05-28 05:45] LABS: MANUAL DIFF FLAG NO
[2023-05-28 05:53] LABS: Basophils Absolute Auto 0.1 X10*3/uL (0.0-0.2); Basophils Percent Auto 0.6 % (0-2); Eosinophils Absolute Auto 0.3 X10*3/uL (0.0-0.4); Eosinophils Percent Auto 3.3 % (0-4); Hematocrit 31.2 % (42.0-52.0); Hemoglobin 10.3 g/dl (14.0-18.0); Imm Gran Abs Auto 0.04 X10*3/uL (0.00-0.03); Imm Gran Pct Auto 0.5 % (0.0-0.4); Lymphocytes Absolute Auto 2.5 X10*3/uL (1.2-4.9); Lymphocytes Percent Auto 28.7 % (20-40); Mean Corpuscular Hemoglobin 28.7 pg (27.0-33.0); Mean Corpuscular Volume 86.9 fL (80.0-98.0); Mean Platelet Volume 10.4 fL (9.4-12.4); Monocytes Absolute Auto 0.6 X10*3/uL (0.1-1.2); Monocytes Percent Auto 6.4 % (2-11); Neutrophils Absolute Auto 5.2 x10*3/uL (2.0-8.3); Neutrophils Percent Auto 60.5 % (45-73); Platelet Count 350 X10*3/uL (160-400); Red Blood Count 3.59 X10*6/uL (4.60-5.80); Red Cell Distribution Width 13.3 % (11.0-16.0); White Blood Count 8.6 X10*3/uL (4.8-10.8)
[2023-05-28 06:09] LABS: Anion Gap 12 (12-20); Blood Urea Nitrogen 15 mg/dL (9-16); Calcium 8.7 mg/dL (8.4-10.2); Carbon Dioxide 24 mmol/L (22-29); Chloride 108 mmol/L (96-108); Creatinine Clr Calc Pharmacy 53.7; Estimated Glomerular Filt Rate 44; Glucose Random 168 mg/dL (60-115); Potassium 3.8 mmol/L (3.3-5.1); Sodium 140 mmol/L (135-145)
--- NOTE | 2023-05-28 07:21 | P.DS_ITS ---
DS: Providers Provider Date of Service: 05/28/23 Date of admission: 05/27/23 17:32 Primary care physician: Guido Burch III, MD DS: Diagnosis Discharge Diagnosis (1) Nausea & vomiting: Status: Resolved DS: Summary Hospital Course Hospital Course: from admission H+P by hospitalist LALITHA Cochran, 05/27/23: 47 year old male with history multiple myeloma (not currently on treatment), CKD stage 3, insulin dependent type 2 diabetes, htn, hld, CAD s/p CABG, nonische enrique cardiomyopathy ICD in place, hx CVA, monocloncal gammopathy, and HFrEF presented to the ED for evaluation of nausea, vomiting and diarrhea ongoing for three days. He states has not been able to eat or drink in 3 days. Last episode of vomiting was yesterday though continues with dry heaves and nausea. Reports diarrhea all day yesterday. There is diffuse abd pain. Reports feeling lightheaded this morning and confused and sustained a fall with head strike but no LOC. He states he still feels dizzy but describes a room spinning sensation. He is also reporting severe low back pain, polyarthralgia,bilateral eye pain, blurred vision, bilateral lower extremity weakness and paresthesias but these symptoms have been ongoing for months. He follows with Dr. barfield in oncology but states his treatment lapsed because he had to leave the area for a time and has not yet resumed treatment. He does smoke marijuana regularly, no other drug use. Occasional etoh use. Reports smoking cessation of 7 months, but resumed yesterday. No fevers, chills, recent illness, sick contacts, eating bad foods, melena, hematochezia, syncope, saddle anesthesia, bowel/bladder dysfunction, shortness of breath, or chest pain. In the ED, VSS, slightly hypertensive to 155/82. There is a leukocytosis 17.3, H/H 10.7/32.4% consistent with baseline. Renal function baseline, elecrolytes normal, except for mag 1.4. Glucose 256. Total CK 232. CRP 2.34, ESR 34. Lipase 147. UA unremarkable. Utox screen positive for MJ. Negative COVID-[address] negative for any acute intracranial abnormality. Chest x-r ay negative. CT abdomen/pelvis negative for any acute intra abdominal process. CT lumbar spine shows mild diffuse thoracic: Are disc degenerative change with multilevel disc bulging resulting in mild spinal canal and neural foraminal narrowing but no evidence for acute fracture malalignment. In the ED, has received 2 g IV morphine, 10 mg Reglan, 10 mg cyclobenzaprine, 1 L IV NS, 50 mg Benadryl, and 0.625 mg droperidol. Pt will be observed overnight for persistent nausea and dry heaves with PO intolerance. 47yo M with MM not currently on treatment, CKD3, DM2, HTN, HLD, CAD s/p CABG, NICM with ICD in place, hx CVA, and HFrEF who was admitted for nausea, PO intolerance, and back/joint pain. Hospital course by problem: nausea, PO intolerance, lightheadedness - Resolved with IV fluids + antiemetics. Suspect cannabinoid hyperemesis and counseled patient to avoid THC. chronic back pain, joint pain + chronic paresthesias + weakness of legs - ESR somewhat high, on empiric prednisone started 05/28; taper over the next 12 days [30 mg daily x 4 days, 20 mg daily x 4 days, 10 mg daily x 4 days] - CT lumbar spine shows severe degenerative disc space disease with bilateral neuroforaminal narrowing but no central canal stenosis - started on gabapentin, prn cyclobenzparine, prn APAP, prn lidocaine patch, prn oxycodone - skeletal survey given hx of mutliple myeloma showed bilateral small lucent lesions seen in proximal and mid humerus suspicious for myeloma; he will follow up with aerospace mechanic-oncologist Dr Conrado [place] [facility] [place] [pending: serum immunofixation electrophoresis and serum free light chain ratio] He was discharged to [facility] for short-term rehabilitation. Time Attestation Discharge coordination time: Greater than 30 minutes Quality: Safe Use of Opioids Does Pt have an Active Cancer Diagnosis on the Problem List?: No Quality: Stroke Does the patient have a stroke diagnosis?: No Physical Exam Vital Signs: Vital Signs: Last Vital Signs Temp 97.4 F 05/28/23 03:53 Pulse 84 05/28/23 03:53 Resp 20 05/28/23 03:53 BP 123/80 05/28/23 03:53 Pulse Ox 100 05/28/23 03:53 O2 Del Method Room Air 05/28/23 03:53 BMI result Body Mass Index 25.1 DS: Data Data Completed and Pending Completed studies during hospitalization [Text1]: Procedures Transfusion of Nonautologous Red Blood Cells into Peripheral Vein, Percutaneous Approach (11/27/21) Labs on day of discharge: Laboratory Results - last 24 hr 05/27/23 05/27/23 05/27/23 08:44 08:51 09:55 WBC 17.3 H RBC 3.78 L Hgb 10.7 L Hct 32.4 L MCV 85.7 MCH 28.3 MCHC 33.0 RDW 13.6 Plt Count 407 H D MPV 10.1 Immature Gran % (Auto) 0.4 Neut % (Auto) 75.9 H Lymph % (Auto) 17.0 L Divide % (Auto) 5.0 Eos % (Auto) 1.4 Baso % (Auto) 0.3 Lymph # (Auto) 2.9 [place] # (Auto) 0.9 Eos # (Auto) 0.2 Baso # (Auto) 0.1 Abs Immat Gran (auto) 0.07 H Absolute Neuts (auto) 13.1 H Absolute Nucleated RBC 0.000 Nucleated RBC % (auto) 0.0 ESR 34 H PT 12.5 INR 1.0 Sodium 140 Potassium 3.8 Chloride 110 H Carbon Dioxide 24 Anion Gap 10 L BUN 19 H Creatinine 1.88 H Estim Creat Clear Calc 48.0 Estimated GFR 38 POC Glucose 259 H Random Glucose 256 H Calcium 9.2 D Magnesium 1.4 L* Total Bilirubin 0.5 Direct Bilirubin 0.2 AST 22 ALT 13 Alkaline Phosphatase 52 Total Creatine Kinase 232 H Troponin I High Sens 13.0 C-Reactive Protein 2.34 H B-Natriuretic Peptide 141 H Total Protein 6.8 Albumin 4.0 Lipase 147 H Urine Color Urine Appearance Urine pH Ur Specific [place] Urine Protein Urine Glucose (UA) Urine Ketones Urine Blood Urine Nitrite Ur Leukocyte Esterase Urine Opiates Screen Urine Fentanyl Screen Ur Barbiturates Screen Ur Phencyclidine Scrn Ur Amphetamines Screen U Benzodiazepines Scrn Urine Cocaine Screen U Marijuana (THC) Screen Ethyl Alcohol < 10 COVID-19 (KATE) Negative COVID-19 Clin Com See Note Influenza Type A (CASSIUS) Negative Influenza Type B (CASSIUS) Negative Influenza A & B Note See Note 05/27/23 05/27/23 05/28/23 15:39 20:57 04:59 WBC 8.6 RBC 3.59 L Hgb 10.3 L Hct 31.2 L MCV 86.9 MCH 28.7 MCHC 33.0 RDW 13.3 Plt Count 350 MPV 10.4 Immature Gran % (Auto) 0.5 H Neut % (Auto) 60.5 Lymph % (Auto) 28.7 [place] % (Auto) 6.4 Eos % (Auto) 3.3 Baso % (Auto) 0.6 Lymph # (Auto) 2.5 [place] # (Auto) 0.6 Eos # (Auto) 0.3 Baso # (Auto) 0.1 Abs Immat Gran (auto) 0.04 H Absolute Neuts (auto) 5.2 Absolute Nucleated RBC 0.000 Nucleated RBC % (auto) 0.0 ESR PT INR Sodium 140 Potassium 3.8 Chloride 108 Carbon Dioxide 24 Anion Gap 12 BUN 15 Creatinine 1.68 H Estim Creat Clear Calc 53.7 Estimated GFR 44 POC Glucose 207 H Random Glucose 168 H Calcium 8.7 Magnesium Total Bilirubin Direct Bilirubin AST ALT Alkaline Phosphatase Total Creatine Kinase Troponin I High Sens C-Reactive Protein B-Natriuretic Peptide Total Protein Albumin Lipase Urine Color Yellow Urine Appearance Clear Urine pH 7.5 Ur Specific [place] 1.015 Urine Protein Trace Urine Glucose (UA) 500 H Urine Ketones Negative Urine Blood Negative Urine Nitrite Negative Ur Leukocyte Esterase Negative Urine Opiates Screen Not Detected Urine Fentanyl Screen Not Detected Ur Barbiturates Screen Not Detected Ur Phencyclidine Scrn Not Detected Ur Amphetamines Screen Not Detected U Benzodiazepines Scrn Not Detected Urine Cocaine Screen Not Detected U Marijuana (THC) Screen POSITIVE H Ethyl Alcohol COVID-19 (KATE) COVID-19 Clin Com Influenza Type A (CASSIUS) Influenza Type B (CASSIUS) Influenza A & B Note Discharge Plan Discharge Anticipated Discharge Date/Time: 05/28/23 07:15 Patient Disposition: Xfer SNF Discharge Diagnosis: nausea chronic back/hip pain multiple myeloma Referrals: [facility] [Outside] - 1 Week (TRANSFER FOR SHORT TERM REHAB) Guido Burch III, MD [Primary Care Provider] - 1 Week Conrado Barfield MD [Physician] - 1 Week Discharge Medications: New cyclobenzaprine 10 mg Tablet 10 mg PO TID PRN (Reason: Muscle Spasm) Qty: 30 0RF acetaminophen 325 mg Tablet 650 mg PO Q6H PRN (Reason: Pain, Mild (Pain Scale 1-3)) Qty: 60 0RF lidocaine [Lidocaine Pain Relief] 4 % Adhesive Patch,Medicated 1 patch transdermal DAILY Qty: 30 0RF Protocol: Apply to: Apply to: back nicotine (polacrilex) 2 mg Gum 2 mg buccal Q1H PRN (Reason: nicotein cravings) Qty: 100 0RF gabapentin 300 mg Capsule 300 mg PO BEDTIME Qty: 30 0RF oxycodone 5 mg Tablet 5 mg PO Q4H PRN (Reason: back pain) Qty: 18 0RF Rx Instructions: Partial Fill upon patient request. prednisone 10 mg tablet See Rx Instructions .ROUTE .COMPLEX Qty: 24 0RF Rx Instructions: 30 mg daily x 4 days, then 20 mg daily x 4 days, then 10 mg daily x 4 days Continued aspirin 325 mg Tablet 325 mg PO DAILY Qty: 90 11RF atorvastatin 80 mg tablet 80 mg PO BEDTIME Qty: 90 0RF sertraline 100 mg tablet 100 mg PO DAILY Rx Instructions: one 25 mg tab + one 100 mg tab = 125 mg daily dose calcium carbonate-vitamin D3 [Calcium 500 + D] 500 mg-10 mcg (400 unit) Tablet 1 tab PO DAILY Qty: 90 7RF insulin lispro [Humalog KwikPen Insulin] 100 unit/mL Insulin Pen 13 unit SUBCUT TID (DME) pen needle, diabetic [BD Ultra-Fine Short Pen Needle] 31 gauge x 5/16 needle subcut QID fenofibrate nanocrystallized 145 mg tablet 1 tab PO DAILY duloxetine 20 mg capsule,delayed release(DR/EC) 40 mg PO BID amitriptyline 25 mg Tablet 25 mg PO BEDTIME Qty: 30 0RF torsemide 20 mg tablet 20 mg PO Q48H lorazepam [Ativan] 1 mg tablet 1 mg PO BID PRN (Reason: anxiety) Qty: 14 0RF tamsulosin 0.4 mg capsule 0.4 mg PO BEDTIME clopidogrel 75 mg tablet 75 mg PO DAILY albuterol sulfate 90 mcg/actuation HFA aerosol inhaler 2 puff inhalation Q4H PRN (Reason: Cough) pantoprazole 40 mg tablet,delayed release (DR/EC) 40 mg PO DAILY@0630 sertraline 25 mg tablet 25 mg PO DAILY Rx Instructions: one 25 mg tab + one 100 mg tab = 125 mg daily dose Lantus Solostar U-100 Insulin 100 unit/mL (3 mL) insulin pen 48 unit subcut DAILY alfuzosin 10 mg tablet extended release 24 hr 10 mg PO BEDTIME 90 Days Qty: 90 1RF (DME) FreeStyle Neville 14 Day Sensor Kit See Rx Instructions topical Q2W Qty: 1 Rx Instructions: As directed docusate sodium 100 mg capsule 100 mg PO BID Rx Instructions: HOLD FOR LOOSE STOOLS Discharge Orders: Discharge Order (Routine); Ordered 05/31/23 Ordered By: Mehrdad Page Diet: Diabetic diet Activity on Discharge: As tolerated Stand Alone Forms: Patient Portal Discharge page Care Plan Goals: full recovery from fall, lightheadness and nasuea and vomitting Health Concerns: nausea/vomiting bony pain history of multiple myeloma Plan of Treatment: encourage fluid intake avoid cannabis prednisone taper: 30 mg daily x 4 days, then 20 mg daily x 4 days, then 10 mg daily x 4 days take gabapentin, acetaminophen, cyclobenzaprine, and oxycodone as needed for back/joint pain consider Rheumatology referral stop smoking; use nicotine gum as needed follow up with Dr [place] [facility] [place] 1 [place] Please follow up with your primary care doctor within 1 week of discharge from SNF; Return to the hospital if you experience recurrent or worsening symptoms. Assessment: as above Discharge Date/Time: 05/31/23 14:01
--- NOTE | 2023-05-28 07:38 | PC.NURSE ---
Assumed care of patient at midnight. See EMAR and shift assessments for full details. Handoff report given [id number].
[2023-05-28 07:44] LABS: Glucose, Whole Blood 143 mg/dL (60-115)
[2023-05-28] MEDS: Sertraline HCL 100 MG TABLET PO (07:47)
[2023-05-28] MEDS: Docusate Sodium 100 MG CAPSULE PO ×2 (07:47→21:06)
[2023-05-28] MEDS: Calcium + Vitamin D 250 MG TABLET 500 MG PO (07:47)
[2023-05-28] MEDS: Fenofibrate 160 MG TABLET PO (07:47)
[2023-05-28] MEDS: Sertraline HCL 25 MG TABLET PO (07:47)
[2023-05-28] MEDS: Insulin Glargine,Hum.rec.anlog 100 UNIT/ML 10 ML VIAL 36 UNIT SUBCUT (07:48)
[2023-05-28] MEDS: DULoxetine HCl 20 MG CAPSULE.DR 40 MG PO (07:48)
[2023-05-28] MEDS: Clopidogrel Bisulfate 75 MG TABLET PO (07:48)
[2023-05-28] MEDS: ondansetron HCL 4 MG/2 ML VIAL IVPUSH ×2 (07:49→21:02)
[2023-05-28] MEDS: Lidocaine 4 % Patch ADH..PATCH 1 PATCH TRANSDERMA (07:52)
[2023-05-28 11:37] LABS: Glucose, Whole Blood 217 mg/dL (60-115)
[2023-05-28] MEDS: Insulin Lispro 100 UNIT/ML 3 ML VIAL SUBCUT (11:46)
--- NOTE | 2023-05-28 15:52 | MHC.CM.PN ---
CM CALLED [facility] X 3 FOR ASSISTANCE MEETING WITH THIS PT CALLS WENT DIRECTLY TO MESSAGE LEFT X 1
--- NOTE | 2023-05-28 15:55 | HO.PM.IMPN ---
Subjective Subjective Date of Service: 05/29/23 Interval History: stil /o of pain in joint and back Review of Systems joint pain Physical Exam Vital Signs: Vital Signs: Last Vital Signs Temp 97 F 05/28/23 15:29 Pulse 71 05/28/23 15:29 Resp 18 05/28/23 15:29 BP 127/65 05/28/23 15:29 Pulse Ox 99 05/28/23 15:29 O2 Del Method Room Air 05/28/23 15:29 BMI result Body Mass Index 25.1 Const: Other: General: AO X 3, no acute distress Resp: CTA bilateral CVS: S1,S2,RRR GI: +BS, NT, no distention Skin: No rash Neuro: motor grossly intact Psych: appropriate affect Objective Data Active Medications Acetaminophen (Acetaminophen 325 Mg Tablet) 650 mg PO Q6H PRN PRN Reason: Pain, Mild (Pain Scale 1-3) Last Admin: 05/28/23 04:11 Dose: 650 mg Documented By: LEO Albuterol Sulfate (Albuterol Sulfate 90 Mcg 8 Gm Inhaler) 2 puff INHALE Q4H PRN PRN Reason: Cough Amitriptyline HCl (Amitriptyline Hcl 25 Mg Tablet) 25 mg PO BEDTIME [facility] Last Admin: 05/27/23 22:28 Dose: 25 mg Documented By: MAXWELL Aspirin (Aspirin 325 Mg Tablet) 325 mg PO DAILY [facility] Last Admin: 05/28/23 07:46 Dose: 325 mg Documented By: ALONDRA Atorvastatin Calcium (Atorvastatin Calcium 80 Mg Tablet) 80 mg PO BEDTIME [facility] Last Admin: 05/27/23 22:28 Dose: 80 mg Documented By: MAXWELL Calcium Carbonate/Cholecalciferol (Calcium + Vitamin D 250 Mg Tablet) 500 mg PO DAILY [facility] Last Admin: 05/28/23 07:47 Dose: 500 mg Documented By: ALONDRA Clopidogrel Bisulfate (Clopidogrel Bisulfate 75 Mg Tablet) 75 mg PO DAILY [facility] Last Admin: 05/28/23 07:48 Dose: 75 mg Documented By: ALONDRA Cyclobenzaprine HCl (Cyclobenzaprine Hcl 10 Mg Tablet) 10 mg PO TID PRN PRN Reason: Muscle Spasm Last Admin: 05/28/23 04:42 Dose: 10 mg Documented By: LEO Dextrose (Dextrose 50 % 25 Gm/50 Ml Syringe) 25 gm IVPUSH Q15M PRN; Protocol PRN Reason: per Hypoglycemia Standing Ord. Docusate Sodium (Docusate Sodium 100 Mg Capsule) 100 mg PO DAILY PRN PRN Reason: Constipation Docusate Sodium (Docusate Sodium 100 Mg Capsule) 100 mg PO BID [facility] Last Admin: 05/28/23 07:47 Dose: 100 mg Documented By: ALONDRA Duloxetine HCl (Duloxetine Hcl 20 Mg Capsule.Dr) 40 mg PO BID [facility] Last Admin: 05/28/23 07:48 Dose: 40 mg Documented By: ALONDRA Fenofibrate (Fenofibrate 160 Mg Tablet) 160 mg PO DAILY [facility] Last Admin: 05/28/23 07:47 Dose: 160 mg Documented By: ALONDRA Gabapentin (Gabapentin 300 Mg Capsule) 300 mg PO BEDTIME [facility] Last Admin: 05/27/23 21:40 Dose: Not Given Documented By: MAXWELL Non-Admin Reason: Patient Refused Glucose (Glucose Gel 15 Gm Gel..Gram.) 15 gm PO Q15M PRN; Protocol PRN Reason: per Hypoglycemia Standing Ord. Heparin Sodium (Porcine) (Heparin Sodium,Porcine 5,000 Unit/Ml Vial) 5,000 unit SUBCUT Q12H [facility] Last Admin: 05/28/23 05:37 Dose: 5,000 unit Documented By: LEO Sodium Chloride (Ns) 1,000 mls @ 100 mls/hr IVCONT .Q10H [facility] Last Admin: 05/28/23 14:58 Dose: 100 mls/hr Documented By: ALONDRA Insulin Glargine (Insulin Glargine,Hum.Rec.Anlog 100 Unit/Ml 10 Ml Vial) 36 unit SUBCUT DAILY [facility] Last Admin: 05/28/23 07:48 Dose: 36 unit Documented By: ALONDRA Insulin Human Lispro (Insulin Lispro 100 Unit/Ml 3 Ml Vial) 0 unit SUBCUT QIDACHS [facility]; Protocol Last Admin: 05/28/23 11:46 Dose: 4 unit Documented By: ALONDRA Lidocaine (Lidocaine 4 % Patch Adh..Patch) 1 patch TRANSDERMA DAILY [facility]; Protocol Last Admin: 05/28/23 07:52 Dose: 1 patch Documented By: ALONDRA Lorazepam (Lorazepam 1 Mg Tablet) 1 mg PO BID PRN PRN Reason: anxiety Non-Formulary Medication (Alfuzosin) 10 mg PO BEDTIME [facility] Omeprazole (Omeprazole 20 Mg Capsule.) 20 mg PO DAILY@0630 [facility] Last Admin: 05/28/23 05:38 Dose: 20 mg Documented By: LEO Ondansetron HCl (Ondansetron Hcl 4 Mg/2 Ml Vial) 4 mg IVPUSH Q8H PRN PRN Reason: Nausea and Vomiting Last Admin: 05/28/23 07:49 Dose: 4 mg Documented By: ALONDRA Oxycodone HCl (Oxycodone Hcl Immed Release 5 Mg Tablet) 5 mg PO Q4H PRN PRN Reason: back pain Last Admin: 05/28/23 07:48 Dose: 5 mg Documented By: ALONDRA Sertraline HCl (Sertraline Hcl 25 Mg Tablet) 25 mg PO DAILY [facility] Last Admin: 05/28/23 07:47 Dose: 25 mg Documented By: ALONDRA Sertraline HCl (Sertraline Hcl 100 Mg Tablet) 100 mg PO DAILY [facility] Last Admin: 05/28/23 07:47 Dose: 100 mg Documented By: ALONDRA Sodium Chloride (0.9 % Sodium Chloride Flush 3 Ml Syringe) 3 ml IVFLUSH QSHIFT [facility] Last Admin: 05/28/23 14:58 Dose: Not Given Documented By: ALONDRA Non-Admin Reason: IV Running Tamsulosin HCl (Tamsulosin Hcl 0.4 Mg Capsule) 0.4 mg PO BEDTIME [facility] Last Admin: 05/27/23 22:28 Dose: 0.4 mg Documented By: MAXWELL Torsemide (Torsemide 20 Mg Tablet) 20 mg PO Q48H [facility]; Protocol Last Admin: 05/27/23 22:28 Dose: 20 mg Documented By: MAXWELL Labs 05/28/23 04:59 05/28/23 04:59 Labs: Laboratory Results - last 24 hr 05/27/23 05/27/23 05/28/23 15:39 20:57 04:59 MCV 86.9 MCH 28.7 MCHC 33.0 RDW 13.3 Plt Count 350 MPV 10.4 Immature Gran % (Auto) 0.5 H Neut % (Auto) 60.5 Lymph % (Auto) 28.7 [place] % (Auto) 6.4 Eos % (Auto) 3.3 Baso % (Auto) 0.6 Lymph # (Auto) 2.5 [place] # (Auto) 0.6 Eos # (Auto) 0.3 Baso # (Auto) 0.1 Abs Immat Gran (auto) 0.04 H Absolute Neuts (auto) 5.2 Absolute Nucleated RBC 0.000 Nucleated RBC % (auto) 0.0 Anion Gap 12 Estim Creat Clear Calc 53.7 Estimated GFR 44 POC Glucose 207 H Random Glucose 168 H Calcium 8.7 Magnesium 2.0 Urine Opiates Screen Not Detected Urine Fentanyl Screen Not Detected Ur Barbiturates Screen Not Detected Ur Phencyclidine Scrn Not Detected Ur Amphetamines Screen Not Detected U Benzodiazepines Scrn Not Detected Urine Cocaine Screen Not Detected U Marijuana (THC) Screen POSITIVE H 05/28/23 05/28/23 07:30 11:22 MCV MCH MCHC RDW Plt Count MPV Immature Gran % (Auto) Neut % (Auto) Lymph % (Auto) [place] % (Auto) Eos % (Auto) Baso % (Auto) Lymph # (Auto) [place] # (Auto) Eos # (Auto) Baso # (Auto) Abs Immat Gran (auto) Absolute Neuts (auto) Absolute Nucleated RBC Nucleated RBC % (auto) Anion Gap Estim Creat Clear Calc Estimated GFR POC Glucose 143 H 217 H Random Glucose Calcium Magnesium Urine Opiates Screen Urine Fentanyl Screen Ur Barbiturates Screen Ur Phencyclidine Scrn Ur Amphetamines Screen U Benzodiazepines Scrn Urine Cocaine Screen U Marijuana (THC) Screen Assessment and Plan (1) Back pain: Status: Acute Plan 47 year old male with history multiple myeloma (not currently on treatment), CKD stage 3, insulin dependent type 2 diabetes, htn, hld, CAD s/p CABG, nonischemic cardiomyopathy ICD in place, hx CVA, monocloncal gammopathy, and HFrEF to be observed for intractable nausea with dry heaves and PO intolerance. #Nausea and PO intolerance-- -Vomiting resolved. ?cyclic vomiting syndrome r/t cannibus use -PRN antiemetics -continue ivf -clear liquid diet, advance as tolerated #Lightheadedness -head ct negative, no acute focal neuro deficit -no orthostatic hypotension -continue ivf #Chronic low back pain and multiple joint pain, elevated ESR, probably has some rheumatological issues -associated paresethesias and ble weakness, both chronic -CT lumbar spine shows severe degenerative disc space disease with bilateral neuroforaminal narrowing but no central canal stenosis -start gabapenin 300mg nightly -outpt follow up with rheum, trial of Prednisone #Multiple myeloma -follow up with Dr. Hamilton slade to resume treatment #Insulin dependent type 2 diabetes- with hyperglycemia -dose adjusted basal insulin -poc glucose -advance to diabetic diet -humalog on ss #HTN -bp reasonably controlled -continue home antihypertensives #HFrEF -clinically euvolemic appering -continue po diuretics #CAD/HLD -continue DAPT, fenofibrate, statin #Anemia of chronic disease -h/h baseline #ckd stage 3 -renal function baseline DVT prophylaxis- heparin full code Quality Stroke Does the patient have a stroke diagnosis?: No VTE Prior VTE?: No VTE Risk Level:: Medical - moderate - high VTE Device Contraindication: Treatment Not Indicated VTE Drug Contraindication: N/A - Med Ordered
[2023-05-28 16:29] LABS: Glucose, Whole Blood 99 mg/dL (60-115)
[2023-05-28 16:38] LABS: Glucose, Whole Blood 72 mg/dL (60-115)
[2023-05-28] MEDS: predniSONE 20 MG TABLET 40 MG PO (17:01)
[2023-05-28 17:24] LABS: Rheumatoid Factor < 13.0 IU/mL (<15.0)
[2023-05-28 20:42] LABS: Glucose, Whole Blood 137 mg/dL (60-115)
[2023-05-28] MEDS: Tamsulosin HCL 0.4 MG CAPSULE PO (21:05)
[2023-05-28] MEDS: Amitriptyline HCl 25 MG TABLET PO (21:05)
[2023-05-28] MEDS: Atorvastatin Calcium 80 MG TABLET PO (21:06)
[2023-05-28] MEDS: Zolpidem Tartrate 5 MG TABLET PO (22:26)
[2023-05-29] MEDS: 0.9 % Sodium Chloride 1,000 ML 100 ML IVCONT ×2 (00:53→10:00)
[2023-05-29 03:51] VITALS: BP 108/57; PULSE 85; RESP 18; TEMP 36.2; O2SAT 97
[2023-05-29] MEDS: Heparin Sodium,Porcine 5,000 UNIT/ML VIAL 5000 UNIT SUBCUT ×2 (05:48→16:56)
[2023-05-29] MEDS: Omeprazole 20 MG CAPSULE.DR PO (05:48)
[2023-05-29] MEDS: oxyCODONE HCl Immed Release 5 MG TABLET PO ×4 (05:48→21:33)
[2023-05-29 07:27] VITALS: BP 120/66; PULSE 83; RESP 18; TEMP 36; O2SAT 99
[2023-05-29 07:28] LABS: Glucose, Whole Blood 210 mg/dL (60-115)
[2023-05-29] MEDS: ondansetron HCL 4 MG/2 ML VIAL IVPUSH ×2 (07:46→16:55)
[2023-05-29] MEDS: Insulin Lispro 100 UNIT/ML 3 ML VIAL SUBCUT ×3 (07:52→20:42)
[2023-05-29] MEDS: Insulin Glargine,Hum.rec.anlog 100 UNIT/ML 10 ML VIAL 36 UNIT SUBCUT (07:52)
[2023-05-29] MEDS: Lidocaine 4 % Patch ADH..PATCH 1 PATCH TRANSDERMA (07:53)
[2023-05-29] MEDS: DULoxetine HCl 20 MG CAPSULE.DR 40 MG PO ×3 (10:52→20:42)
[2023-05-29] MEDS: Aspirin 325 MG TABLET PO ×2 (10:52→10:54)
[2023-05-29] MEDS: Calcium + Vitamin D 250 MG TABLET 500 MG PO (10:55)
[2023-05-29] MEDS: Sertraline HCL 25 MG TABLET PO (10:55)
[2023-05-29] MEDS: Clopidogrel Bisulfate 75 MG TABLET PO (10:55)
[2023-05-29] MEDS: predniSONE 20 MG TABLET 40 MG PO (10:55)
[2023-05-29] MEDS: Sertraline HCL 100 MG TABLET PO (10:55)
[2023-05-29] MEDS: Docusate Sodium 100 MG CAPSULE PO ×2 (10:55→20:41)
[2023-05-29] MEDS: Fenofibrate 160 MG TABLET PO (10:55)
[2023-05-29] MEDS: Cyclobenzaprine HCl 10 MG TABLET PO (11:23)
[2023-05-29 11:25] VITALS: BP 148/71; PULSE 75; RESP 18; TEMP 36.4; O2SAT 100
[2023-05-29 11:30] LABS: Glucose, Whole Blood 63 mg/dL (60-115)
[2023-05-29 11:58] LABS: Glucose, Whole Blood 71 mg/dL (60-115)
[2023-05-29] MEDS: Ketorolac Tromethamine 15 MG/ML VIAL IVPUSH ×2 (12:27→17:53)
--- NOTE | 2023-05-29 13:58 | HO.PM.IMPN ---
Subjective Subjective Date of Service: 05/29/23 Interval History: Still c/o pain pain in joint, especially back since he fell Physical Exam Vital Signs: Vital Signs: Last Vital Signs Temp 97.6 F 05/29/23 11:25 Pulse 75 05/29/23 11:25 Resp 18 05/29/23 11:25 BP 148/71 H 05/29/23 11:25 Pulse Ox 100 05/29/23 11:25 O2 Del Method Room Air 05/29/23 11:25 BMI result Body Mass Index 25.1 Const: Other: General: AO X 3, no acute distress Resp: CTA bilateral CVS: S1,S2,RRR GI: +BS, NT, no distention Skin: No rash Neuro: motor grossly intact Psych: appropriate affect Objective Data Active Medications Acetaminophen (Acetaminophen 325 Mg Tablet) 650 mg PO Q6H PRN PRN Reason: Pain, Mild (Pain Scale 1-3) Last Admin: 05/28/23 17:01 Dose: 650 mg Documented By: ALONDRA Albuterol Sulfate (Albuterol Sulfate 90 Mcg 8 Gm Inhaler) 2 puff INHALE Q4H PRN PRN Reason: Cough Amitriptyline HCl (Amitriptyline Hcl 25 Mg Tablet) 25 mg PO BEDTIME [facility] Last Admin: 05/28/23 21:05 Dose: 25 mg Documented By: SERGIO Aspirin (Aspirin 325 Mg Tablet) 325 mg PO DAILY [facility] Last Admin: 05/29/23 10:54 Dose: 325 mg Documented By: AMY Atorvastatin Calcium (Atorvastatin Calcium 80 Mg Tablet) 80 mg PO BEDTIME [facility] Last Admin: 05/28/23 21:06 Dose: 80 mg Documented By: SERGIO Calcium Carbonate/Cholecalciferol (Calcium + Vitamin D 250 Mg Tablet) 500 mg PO DAILY [facility] Last Admin: 05/29/23 10:55 Dose: 500 mg Documented By: AMY Clopidogrel Bisulfate (Clopidogrel Bisulfate 75 Mg Tablet) 75 mg PO DAILY [facility] Last Admin: 05/29/23 10:55 Dose: 75 mg Documented By: AMY Cyclobenzaprine HCl (Cyclobenzaprine Hcl 10 Mg Tablet) 10 mg PO TID PRN PRN Reason: Muscle Spasm Last Admin: 05/29/23 11:23 Dose: 10 mg Documented By: MAXWELL Dextrose (Dextrose 50 % 25 Gm/50 Ml Syringe) 25 gm IVPUSH Q15M PRN; Protocol PRN Reason: per Hypoglycemia Standing Ord. Docusate Sodium (Docusate Sodium 100 Mg Capsule) 100 mg PO DAILY PRN PRN Reason: Constipation Docusate Sodium (Docusate Sodium 100 Mg Capsule) 100 mg PO BID [facility] Last Admin: 05/29/23 10:55 Dose: 100 mg Documented By: AMY Duloxetine HCl (Duloxetine Hcl 20 Mg Capsule.Dr) 40 mg PO BID [facility] Last Admin: 05/29/23 10:54 Dose: 40 mg Documented By: AMY Fenofibrate (Fenofibrate 160 Mg Tablet) 160 mg PO DAILY [facility] Last Admin: 05/29/23 10:55 Dose: 160 mg Documented By: AMY Gabapentin (Gabapentin 300 Mg Capsule) 300 mg PO BEDTIME [facility] Last Admin: 05/28/23 21:07 Dose: Not Given Documented By: SERGIO Non-Admin Reason: Patient Refused Glucose (Glucose Gel 15 Gm Gel..Gram.) 15 gm PO Q15M PRN; Protocol PRN Reason: per Hypoglycemia Standing Ord. Heparin Sodium (Porcine) (Heparin Sodium,Porcine 5,000 Unit/Ml Vial) 5,000 unit SUBCUT Q12H [facility] Last Admin: 05/29/23 05:48 Dose: 5,000 unit Documented By: SERGIO Sodium Chloride (Ns) 1,000 mls @ 100 mls/hr IVCONT .Q10H [facility] Last Admin: 05/29/23 10:00 Dose: 100 mls/hr Documented By: AMY Insulin Glargine (Insulin Glargine,Hum.Rec.Anlog 100 Unit/Ml 10 Ml Vial) 36 unit SUBCUT DAILY [facility] Last Admin: 05/29/23 07:52 Dose: 36 unit Documented By: AMY Insulin Human Lispro (Insulin Lispro 100 Unit/Ml 3 Ml Vial) 0 unit SUBCUT QIDACHS [facility]; Protocol Last Admin: 05/29/23 11:24 Dose: Not Given Documented By: MAXWELL Non-Admin Reason: No Insulin Coverage Ketorolac Tromethamine (Ketorolac Tromethamine 15 Mg/Ml Vial) 15 mg IVPUSH Q6H [facility] Last Admin: 05/29/23 12:27 Dose: 15 mg Documented By: AMY Lidocaine (Lidocaine 4 % Patch Adh..Patch) 1 patch TRANSDERMA DAILY [facility]; Protocol Last Admin: 05/29/23 07:53 Dose: 1 patch Documented By: AMY Lorazepam (Lorazepam 1 Mg Tablet) 1 mg PO BID PRN PRN Reason: anxiety Non-Formulary Medication (Alfuzosin) 10 mg PO BEDTIME [facility] Omeprazole (Omeprazole 20 Mg Capsule.Dr) 20 mg PO DAILY@0630 [facility] Last Admin: 05/29/23 05:48 Dose: 20 mg Documented By: SERGIO Ondansetron HCl (Ondansetron Hcl 4 Mg/2 Ml Vial) 4 mg IVPUSH Q8H PRN PRN Reason: Nausea and Vomiting Last Admin: 05/29/23 07:46 Dose: 4 mg Documented By: AMY Oxycodone HCl (Oxycodone Hcl Immed Release 5 Mg Tablet) 5 mg PO Q4H PRN PRN Reason: back pain Last Admin: 05/29/23 11:22 Dose: 5 mg Documented By: MAXWELL Prednisone (Prednisone 20 Mg Tablet) 40 mg PO DAILY [facility] Last Admin: 05/29/23 10:55 Dose: 40 mg Documented By: AMY Sertraline HCl (Sertraline Hcl 25 Mg Tablet) 25 mg PO DAILY [facility] Last Admin: 05/29/23 10:55 Dose: 25 mg Documented By: AMY Sertraline HCl (Sertraline Hcl 100 Mg Tablet) 100 mg PO DAILY [facility] Last Admin: 05/29/23 10:55 Dose: 100 mg Documented By: AMY Sodium Chloride (0.9 % Sodium Chloride Flush 3 Ml Syringe) 3 ml IVFLUSH QSHIFT [facility] Last Admin: 05/29/23 07:56 Dose: Not Given Documented By: AMY Non-Admin Reason: IV Running Tamsulosin HCl (Tamsulosin Hcl 0.4 Mg Capsule) 0.4 mg PO BEDTIME [facility] Last Admin: 05/28/23 21:05 Dose: 0.4 mg Documented By: SERGIO Torsemide (Torsemide 20 Mg Tablet) 20 mg PO Q48H [facility]; Protocol Last Admin: 05/27/23 22:28 Dose: 20 mg Documented By: MAXWELL Zolpidem Tartrate (Zolpidem Tartrate 5 Mg Tablet) 5 mg PO BEDTIME PRN PRN Reason: Insomnia Last Admin: 05/28/23 22:26 Dose: 5 mg Documented By: SERGIO Labs 05/28/23 04:59 05/28/23 04:59 Labs: Laboratory Results - last 24 hr 05/28/23 05/28/23 05/28/23 16:08 16:14 16:59 POC Glucose 72 99 Rheumatoid Factor < 13.0 05/28/23 05/29/23 05/29/23 20:31 07:15 11:24 POC Glucose 137 H 210 H 63 Rheumatoid Factor 05/29/23 11:55 POC Glucose 71 Rheumatoid Factor Assessment and Plan (1) Back pain: Status: Acute Plan 47 year old male with history multiple myeloma (not currently on treatment), CKD stage 3, insulin dependent type 2 diabetes, htn, hld, CAD s/p CABG, nonischemic cardiomyopathy ICD in place, hx CVA, monocloncal gammopathy, and HFrEF to be observed for intractable nausea with dry heaves and PO intolerance. #Nausea and PO intolerance-- -Vomiting resolved. ?cyclic vomiting syndrome r/t cannibus use -PRN antiemetics -continue ivf -advance to regular diet #Lightheadedness -head ct negative, no acute focal neuro deficit -no orthostatic hypotension -continue ivf, resolved #Chronic low back pain and multiple joint pain, elevated ESR, probably has some rheumatological issues -associated paresethesias and ble weakness, both chronic -CT lumbar spine shows severe degenerative disc space disease with bilateral neuroforaminal narrowing but no central canal stenosis -start gabapenin 300mg nightly, PT #Multiple myeloma -follow up with Dr. Hamilton slade to resume treatment #Insulin dependent type 2 diabetes- with hyperglycemia -dose adjusted basal insulin -poc glucose -advance to diabetic diet -humalog on ss #HTN -bp reasonably controlled -continue home antihypertensives #HFrEF -clinically euvolemic appering -continue po diuretics #CAD/HLD -continue DAPT, fenofibrate, statin #Anemia of chronic disease -h/h baseline #ckd stage 3 -renal function baseline DVT prophylaxis- heparin full code Quality Stroke Does the patient have a stroke diagnosis?: No VTE Prior VTE?: No VTE Risk Level:: Medical - moderate - high VTE Device Contraindication: Treatment Not Indicated VTE Drug Contraindication: N/A - Med Ordered
[2023-05-29 15:37] VITALS: BP 145/77; PULSE 90; RESP 18; TEMP 36.3; O2SAT 99
--- NOTE | 2023-05-29 15:53 | MHC.CM.PN ---
CM MET WITH PT WITH THE ASSISTANCE OF A GEOINT ANALYST PT REPORTS HE IS NOW HOMELESS, HE SAYS HE AND HIS SPLIT AFTER THEIR SON WAS MURDERED HE REPORTS HE WAS STAYING WITH A [facility], BUT CAN NO LONGER STAY THERE HE SAYS HE CANNOT STAY IN A SNF DUE TO NEEDING A CPAP HE ALSO REPORTS HE USUALLY USES A CANE PT SAYS WHEN HE WAS HOUSED, HE HAD 34 [facility] [employer] TE[employer]IST HOURS PER WEEK HE ALSO REPORTS HIS PCP OFFICE SAID THEY WOULD ASSIST HIM WITH HOUSING THROUGH HE WILL CALL TUESDAY PT AWARE CM CAN ONLY OFFER SNF OR SNF SNF REFERRALS MADE IN CASE PT CHANGES HIS MIND WILL NEED INSURANCE RUN TO ENSURE PT HAS A SNF BENEFIT DCP BESSIED
[2023-05-29 16:08] LABS: Glucose, Whole Blood 213 mg/dL (60-115)
[2023-05-29] MEDS: Acetaminophen 325 MG TABLET 650 MG PO (16:55)
[2023-05-29 20:00] VITALS: BP 141/73; PULSE 88; RESP 14; TEMP 36.8; O2SAT 99
[2023-05-29 20:30] LABS: Glucose, Whole Blood 154 mg/dL (60-115)
[2023-05-29] MEDS: Atorvastatin Calcium 80 MG TABLET PO (20:41)
[2023-05-29] MEDS: Amitriptyline HCl 25 MG TABLET PO (20:41)
[2023-05-29] MEDS: Tamsulosin HCL 0.4 MG CAPSULE PO (20:42)
[2023-05-29] MEDS: 0.9 % Sodium Chloride Flush 3 ML SYRINGE IVFLUSH (20:43)
[2023-05-29] MEDS: Zolpidem Tartrate 5 MG TABLET PO (21:34)
[2023-05-29] MEDS: Torsemide 20 MG TABLET PO (21:34)
[2023-05-29 23:43] VITALS: BP 132/69; PULSE 84; RESP 14; TEMP 36.5; O2SAT 99
[2023-05-30] VITALS (8 sets, daily range): BP systolic 106–148; BP diastolic 56–73; PULSE 74–83; RESP 14–18; TEMP 36.2–36.9; O2SAT 98–99
[2023-05-30] MEDS: Ketorolac Tromethamine 15 MG/ML VIAL IVPUSH ×4 (00:25→17:37)
[2023-05-30 02:03] LABS: Glucose, Whole Blood 65 mg/dL (60-115)
[2023-05-30] MEDS: Heparin Sodium,Porcine 5,000 UNIT/ML VIAL 5000 UNIT SUBCUT ×2 (05:46→16:52)
[2023-05-30] MEDS: Omeprazole 20 MG CAPSULE.DR PO (05:46)
[2023-05-30 06:03] LABS: Glucose, Whole Blood 99 mg/dL (60-115)
[2023-05-30 07:46] LABS: Glucose, Whole Blood 77 mg/dL (60-115)
[2023-05-30] MEDS: Aspirin 325 MG TABLET PO (08:17)
[2023-05-30] MEDS: Calcium + Vitamin D 250 MG TABLET 500 MG PO (08:18)
[2023-05-30] MEDS: predniSONE 20 MG TABLET 40 MG PO (08:18)
[2023-05-30] MEDS: Fenofibrate 160 MG TABLET PO (08:18)
[2023-05-30] MEDS: DULoxetine HCl 20 MG CAPSULE.DR 40 MG PO ×2 (08:18→21:24)
[2023-05-30] MEDS: Sertraline HCL 25 MG TABLET PO (08:18)
[2023-05-30] MEDS: Sertraline HCL 100 MG TABLET PO (08:18)
[2023-05-30] MEDS: Clopidogrel Bisulfate 75 MG TABLET PO (08:18)
[2023-05-30] MEDS: Docusate Sodium 100 MG CAPSULE PO ×2 (08:19→21:24)
[2023-05-30] MEDS: 0.9 % Sodium Chloride Flush 3 ML SYRINGE IVFLUSH ×3 (08:19→21:25)
[2023-05-30] MEDS: Lidocaine 4 % Patch ADH..PATCH 1 PATCH TRANSDERMA (08:21)
[2023-05-30] MEDS: Insulin Glargine,Hum.rec.anlog 100 UNIT/ML 10 ML VIAL 12 UNIT SUBCUT (09:11)
[2023-05-30 11:06] LABS: Glucose, Whole Blood 134 mg/dL (60-115)
[2023-05-30 11:06] LABS: Glucose, Whole Blood 109 mg/dL (60-115)
--- NOTE | 2023-05-30 11:16 | HO.PM.IMPN ---
Subjective Subjective Date of Service: 05/30/23 Interval History: c/o R hip + back pain Review of Systems Review of Systems: Yes all other systems are reviewed and are negative Physical Exam Vital Signs: Vital Signs: Last Vital Signs Temp 97.7 F 05/30/23 07:28 Pulse 77 05/30/23 09:10 Resp 18 05/30/23 07:28 BP 118/66 05/30/23 09:10 Pulse Ox 98 05/30/23 09:10 O2 Del Method Room Air 05/30/23 07:28 BMI result Body Mass Index 25.1 Gen: in no acute distress HEENT: sclera anicteric, moist mucus membranes Neck: supple Lungs: clear to auscultation bilaterally Heart: regular rate and rhythm, no murmurs Abd: soft, non-tender, non-distended Ext: no edema, R hip tenderness Skin: warm/well-perfused Neuro: alert and oriented x3, no focal findings Psych: appropriate affect Objective Data Active Medications Acetaminophen (Acetaminophen 325 Mg Tablet) 650 mg PO Q6H PRN PRN Reason: Pain, Mild (Pain Scale 1-3) Last Admin: 05/29/23 16:55 Dose: 650 mg Documented By: AMY Albuterol Sulfate (Albuterol Sulfate 90 Mcg 8 Gm Inhaler) 2 puff INHALE Q4H PRN PRN Reason: Cough Amitriptyline HCl (Amitriptyline Hcl 25 Mg Tablet) 25 mg PO BEDTIME [facility] Last Admin: 05/29/23 20:41 Dose: 25 mg Documented By: WINTER Aspirin (Aspirin 325 Mg Tablet) 325 mg PO DAILY [facility] Last Admin: 05/30/23 08:17 Dose: 325 mg Documented By: DARRELL Atorvastatin Calcium (Atorvastatin Calcium 80 Mg Tablet) 80 mg PO BEDTIME [facility] Last Admin: 05/29/23 20:41 Dose: 80 mg Documented By: WINTER Calcium Carbonate/Cholecalciferol (Calcium + Vitamin D 250 Mg Tablet) 500 mg PO DAILY [facility] Last Admin: 05/30/23 08:18 Dose: 500 mg Documented By: DARRELL Clopidogrel Bisulfate (Clopidogrel Bisulfate 75 Mg Tablet) 75 mg PO DAILY [facility] Last Admin: 05/30/23 08:18 Dose: 75 mg Documented By: DARRELL Cyclobenzaprine HCl (Cyclobenzaprine Hcl 10 Mg Tablet) 10 mg PO TID PRN PRN Reason: Muscle Spasm Last Admin: 05/29/23 11:23 Dose: 10 mg Documented By: MAXWELL Dextrose (Dextrose 50 % 25 Gm/50 Ml Syringe) 25 gm IVPUSH Q15M PRN; Protocol PRN Reason: per Hypoglycemia Standing Ord. Docusate Sodium (Docusate Sodium 100 Mg Capsule) 100 mg PO DAILY PRN PRN Reason: Constipation Docusate Sodium (Docusate Sodium 100 Mg Capsule) 100 mg PO BID [facility] Last Admin: 05/30/23 08:19 Dose: 100 mg Documented By: DARRELL Duloxetine HCl (Duloxetine Hcl 20 Mg Capsule.Dr) 40 mg PO BID [facility] Last Admin: 05/30/23 08:18 Dose: 40 mg Documented By: DARRELL Fenofibrate (Fenofibrate 160 Mg Tablet) 160 mg PO DAILY [facility] Last Admin: 05/30/23 08:18 Dose: 160 mg Documented By: DARRELL Gabapentin (Gabapentin 300 Mg Capsule) 300 mg PO BEDTIME [facility] Last Admin: 05/29/23 20:42 Dose: Not Given Documented By: WINTER Non-Admin Reason: Patient Refused Glucose (Glucose Gel 15 Gm Gel..Gram.) 15 gm PO Q15M PRN; Protocol PRN Reason: per Hypoglycemia Standing Ord. Heparin Sodium (Porcine) (Heparin Sodium,Porcine 5,000 Unit/Ml Vial) 5,000 unit SUBCUT Q12H [facility] Last Admin: 05/30/23 05:46 Dose: 5,000 unit Documented By: WINTER Insulin Glargine (Insulin Glargine,Hum.Rec.Anlog 100 Unit/Ml 10 Ml Vial) 12 unit SUBCUT DAILY [facility] Last Admin: 05/30/23 09:11 Dose: 12 unit Documented By: DARRELL Insulin Human Lispro (Insulin Lispro 100 Unit/Ml 3 Ml Vial) 0 unit SUBCUT QIDACHS [facility]; Protocol Last Admin: 05/30/23 08:50 Dose: Not Given Documented By: DARRELL Non-Admin Reason: No Insulin Coverage Ketorolac Tromethamine (Ketorolac Tromethamine 15 Mg/Ml Vial) 15 mg IVPUSH Q6H [facility] Last Admin: 05/30/23 05:46 Dose: 15 mg Documented By: WINTER Lidocaine (Lidocaine 4 % Patch Adh..Patch) 1 patch TRANSDERMA DAILY [facility]; Protocol Last Admin: 05/30/23 08:21 Dose: 1 patch Documented By: DARRELL Lorazepam (Lorazepam 1 Mg Tablet) 1 mg PO BID PRN PRN Reason: anxiety Nicotine Polacrilex (Nicotine Polacrilex 2 Mg Gum) 2 mg BUCCAL Q1H PRN PRN Reason: nicotein cravings Non-Formulary Medication (Alfuzosin) 10 mg PO BEDTIME [facility] Omeprazole (Omeprazole 20 Mg Capsule.Dr) 20 mg PO DAILY@0630 [facility] Last Admin: 05/30/23 05:46 Dose: 20 mg Documented By: WINTER Ondansetron HCl (Ondansetron Hcl 4 Mg/2 Ml Vial) 4 mg IVPUSH Q8H PRN PRN Reason: Nausea and Vomiting Last Admin: 05/29/23 16:55 Dose: 4 mg Documented By: AMY Oxycodone HCl (Oxycodone Hcl Immed Release 5 Mg Tablet) 5 mg PO Q4H PRN PRN Reason: back pain Last Admin: 05/29/23 21:33 Dose: 5 mg Documented By: WINTER Prednisone (Prednisone 20 Mg Tablet) 40 mg PO DAILY [facility] Last Admin: 05/30/23 08:18 Dose: 40 mg Documented By: DARRELL Sertraline HCl (Sertraline Hcl 25 Mg Tablet) 25 mg PO DAILY [facility] Last Admin: 05/30/23 08:18 Dose: 25 mg Documented By: DARRELL Sertraline HCl (Sertraline Hcl 100 Mg Tablet) 100 mg PO DAILY [facility] Last Admin: 05/30/23 08:18 Dose: 100 mg Documented By: DARRELL Sodium Chloride (0.9 % Sodium Chloride Flush 3 Ml Syringe) 3 ml IVFLUSH QSHIFT [facility] Last Admin: 05/30/23 08:19 Dose: 3 ml Documented By: DARRELL Tamsulosin HCl (Tamsulosin Hcl 0.4 Mg Capsule) 0.4 mg PO BEDTIME [facility] Last Admin: 05/29/23 20:42 Dose: 0.4 mg Documented By: WINTER Torsemide (Torsemide 20 Mg Tablet) 20 mg PO Q48H [facility]; Protocol Last Admin: 05/29/23 21:34 Dose: 20 mg Documented By: WINTER Zolpidem Tartrate (Zolpidem Tartrate 5 Mg Tablet) 5 mg PO BEDTIME PRN PRN Reason: Insomnia Last Admin: 05/29/23 21:34 Dose: 5 mg Documented By: WINTER Labs 05/28/23 04:59 05/28/23 04:59 Labs: Laboratory Results - last 24 hr 05/29/23 05/29/23 05/29/23 11:24 11:55 16:04 POC Glucose 63 71 213 H 05/29/23 05/30/23 05/30/23 20:05 01:28 05:55 POC Glucose 154 H 65 99 05/30/23 05/30/23 05/30/23 07:31 09:11 11:03 POC Glucose 77 134 H 109 Assessment and Plan (1) Back pain: Status: Acute Plan d4 47yo M with MM not currently on treatment, CKD3, DM2, HTN, HLD, CAD s/p CABG, NICM with ICD in place, hx CVA, HFrEF admitted for nausea, PO intolerance, and back/joint pain nausea, PO intolerance - resolving- ?CVS due to THC use. advance to regular diet, off IV fluids lightheadedness - resolved, not orthostatic chronic back pain, joint pain + chronic paresthesias + weakness of legs - ESR somewhat high, on empiric prednisone started 05/28 - CT lumbar spine shows severe degenerative disc space disease with bilateral neuroforaminal narrowing but no central canal stenosis - started on gabapentin - skeletal survey given hx MM - started hs gabapentin MM - Heme-Onc consult given bony pain DM2 - decrease basal insulin, continue correction-dose lispro chronic HFrEF - continue torsemide CAD - continue clopidogrel, ASA, atorvastatin HLD - continue atorvastatin, fenofibrate anemia of chronic disease - H+H at baseline CKD3 - SCr at baseline mood disorder - continue duloxetine + sertraline VTE ppx - UFH dispo - PT consult done, recommend STR In my clinical judgment, the patient requires continued inpatient hospitalization for the following reasons: advance diet, workup for MM-related pain, placement Total time managing care of this patient today: 45 minutes. Quality Stroke Does the patient have a stroke diagnosis?: No VTE Prior VTE?: No VTE Risk Level:: Medical - moderate - high VTE Device Contraindication: Treatment Not Indicated VTE Drug Contraindication: N/A - Med Ordered
--- NOTE | 2023-05-30 12:51 | MHC.CM.PN ---
EMR REVIEWED AND PER MD ROUNDS, PT NOT MEDICALLY CLEARED FOR DC (ADVANCING DIET, CONTINUED BONY PAIN) P.T. REC. STR AND PT IS AGREEABLE. [facility] HAS OFFERED A BED PENDING INSURANCE AUTH FOR 05/31. CENTER WILL START AUTH TODAY. MD AWARE. CM WILL CONTINUE TO FOLLOW FOR ANY CHANGE IN DC PLAN/NEEDS.
[2023-05-30] MEDS: oxyCODONE HCl Immed Release 5 MG TABLET PO ×2 (13:18→21:24)
--- NOTE | 2023-05-30 16:05 | PM.HEMONCCN ---
Subjective - Subjective Chief complaint: Consult for: Multiple myeloma. Patient: known to practice within the last 3 years Consult date: 05/30/23 Requesting Physician: Camilo Primary Care Provider: Guido Burch III, MD Medical Summary: DIAGNOSIS: MULTIPLE MYELOMA. HPI - Consult Narrative Reason for consult: Consult for: Multiple myeloma. Narrative: Pérez Kraus is a 47 year old gentleman, with a history of multiple myeloma. He has been off treatment. Actually he has been lost to follow-up since November. He presented for evaluation of nausea, vomiting and diarrhea ongoing for three days. He has not been able to eat or drink in 3 days. Last episode of vomiting was yesterday though continues with dry heaves and nausea. Reports diarrhea all day yesterday. There is diffuse abd pain. Reports feeling lightheaded this morning and confused and sustained a fall with head strike but no LOC. He states he still feels dizzy but describes a room spinning sensation. He also reported severe low back pain, polyarthralgia,bilateral eye pain, blurred vision, bilateral lower extremity weakness and paresthesias, ongoing for months. He states his treatment lapsed because he had to leave the area for a time and has not yet resumed treatment. He does smoke marijuana regularly, no other drug use. Occasional etoh use. Reports smoking cessation of 7 months, but resumed yesterday. No fevers, chills, recent illness, sick contacts, eating bad foods, melena, hematochezia, syncope, saddle anesthesia, bowel/bladder dysfunction, shortness of breath, or chest pain. In the ED, VSS, slightly hypertensive to 155/82. Database: There is a leukocytosis 17.3, H/H 10.7/32.4% consistent with baseline. Renal function baseline, elecrolytes normal, except for mag 1.4. Glucose 256. Total CK 232. CRP 2.34, ESR 34. Lipase 147. UA unremarkable. Utox screen positive for MJ. Negative COVID-[address] negative for any acute intracranial abnormality. Chest x-ray negative. CT abdomen/pelvis negative for any acute intra abdominal process. CT lumbar spine shows mild diffuse thoracic: Are disc degenerative change with multilevel disc bulging resulting in mild spinal canal and neural foraminal narrowing but no evidence for acute fracture malalignment. In the ED, has received 2 g IV morphine, 10 mg Reglan, 10 mg cyclobenzaprine, 1 L IV NS, 50 mg Benadryl, and 0.625 mg droperidol. Pt was admitted for observation for persistent nausea and vomiting with PO intolerance. Review of Systems Review of Systems: General: No fevers, malaise, unintentional weight loss HEENT: No blurred vision, diplopia. No sore throat, nasal congestion, rhinorrhea, sinus pain, ear pain Cardiovascular: No chest pain, palpitations, or leg edema Respiratory: No shortness of breath, wheezing, cough GI: +abd pain, +n/v/d. No constipation, melena, hematochezia : No dysuria, hematuria, increased urinary frequency, decreased urinary output MSK: No myalgia. +back pain, +arthralgia Neuro: No headaches. +ble weakness, +paresthesias Skin: No rashes or lesions [facility] Medical History: CKD stage 3, insulin dependent type 2 diabetes, htn, hld, CAD s/p CABG, nonischemic cardiomyopathy ICD in place, hx CVA, monocloncal gammopathy, and HFrEF Bladder pain Multiple myeloma CVA (cerebral vascular accident) Multiple myeloma CKD (chronic kidney disease) Review of Systems - Constitutional Reports system reviewed and no additional complaints, except as documented, Reports anorexia, Reports body ache(s), Reports fatigue, Reports lack of energy, Reports malaise, Reports poor appetite, Reports weight loss, Denies fever(s) - Eyes Reports system reviewed and no additional complaints, except as documented - ENT Reports system reviewed and no additional complaints, except as documented - Cardiovascular Reports system reviewed and no additional complaints, except as documented - Respiratory Reports no additional respiratory complaints - Gastrointestinal Reports system reviewed and no additional complaints, except as documented - Genitourinary Genitourinary: Reports no additional male genitourinary complaints - Musculoskeletal Reports system reviewed and no additional complaints, except as documented - Integumentary/Breasts Skin/Breast: Reports no additional skin complaints - Neurologic Denies abnormal speech - Psychiatric Reports system reviewed and no additional complaints, except as documented - Endocrine Reports no additional endocrine complaints - Hematologic/Lymphatic Reports system reviewed and no additional complaints, except as documented - Allergic/Immunologic Reports system reviewed and no additional complaints, except as documented Oncology Screenings - ECOG Performance Status ECOG Performance Status: 2 [facility] Medical History: Medical History (Last Reviewed 05/27/23 @ 18:02 by LALITHA Cochran) Bladder pain CAD (coronary artery disease) Chronic systolic CHF (congestive heart failure) CKD (chronic kidney disease) CVA (cerebral vascular accident) Diabetes mellitus HLD (hyperlipidemia) HTN (hypertension) ICD (implantable cardioverter-defibrillator) in place Ischemic cardiomyopathy Monoclonal gammopathy Multiple myeloma Multiple myeloma Functional capacity: uses cane/walker Patient : No Family History: Family History (Last Reviewed 05/27/23 @ 18:02 by LALITHA Cochran) Father Esophageal cancer Diabetes mellitus Mother Diabetes mellitus Brother Diabetes mellitus Sister Diabetes mellitus Cervical cancer Surgical History: Surgical History (Last Reviewed 05/27/23 @ 18:02 by LALITHA Cochran) Hx of cardiac cath Onset Date: ~2017 S/P CABG x 2 Onset Date: ~02/2019 Social History: Social History (Last Reviewed 05/27/23 @ 18:02 by LALITHA Cochran) Living Situation History: Household Members: Spouse Household Members: Children Housing: House Are you a primary care process manager to a significant other at home: No Do you presently have visiting nurse or other home services: No Tobacco History: Patient Tobacco Use Status: Current everyday Tobacco Tobacco use type: Cigarette Substance Use History: Substance Use Type: Marijuana Advance Directives: Advance Directives Date on File: 08/31/21 Occupation Assessmet: service: No Current occupational status: disabled Home Medications and Allergies Current Medications: Current Medications Acetaminophen (Acetaminophen 325 Mg Tablet) 650 mg PO Q6H PRN PRN Reason: Pain, Mild (Pain Scale 1-3) Last Admin: 05/29/23 16:55 Dose: 650 mg Albuterol Sulfate (Albuterol Sulfate 90 Mcg 8 Gm Inhaler) 2 puff INHALE Q4H PRN PRN Reason: Cough Amitriptyline HCl (Amitriptyline Hcl 25 Mg Tablet) 25 mg PO BEDTIME [facility] Last Admin: 05/29/23 20:41 Dose: 25 mg Aspirin (Aspirin 325 Mg Tablet) 325 mg PO DAILY [facility] Last Admin: 05/30/23 08:17 Dose: 325 mg Atorvastatin Calcium (Atorvastatin Calcium 80 Mg Tablet) 80 mg PO BEDTIME [facility] Last Admin: 05/29/23 20:41 Dose: 80 mg Calcium Carbonate/Cholecalciferol (Calcium + Vitamin D 250 Mg Tablet) 500 mg PO DAILY [facility] Last Admin: 05/30/23 08:18 Dose: 500 mg Clopidogrel Bisulfate (Clopidogrel Bisulfate 75 Mg Tablet) 75 mg PO DAILY [facility] Last Admin: 05/30/23 08:18 Dose: 75 mg Cyclobenzaprine HCl (Cyclobenzaprine Hcl 10 Mg Tablet) 10 mg PO TID PRN PRN Reason: Muscle Spasm Last Admin: 05/29/23 11:23 Dose: 10 mg Dextrose (Dextrose 50 % 25 Gm/50 Ml Syringe) 25 gm IVPUSH Q15M PRN; Protocol PRN Reason: per Hypoglycemia Standing Ord. Docusate Sodium (Docusate Sodium 100 Mg Capsule) 100 mg PO DAILY PRN PRN Reason: Constipation Docusate Sodium (Docusate Sodium 100 Mg Capsule) 100 mg PO BID [facility] Last Admin: 05/30/23 08:19 Dose: 100 mg Duloxetine HCl (Duloxetine Hcl 20 Mg Capsule.Dr) 40 mg PO BID [facility] Last Admin: 05/30/23 08:18 Dose: 40 mg Fenofibrate (Fenofibrate 160 Mg Tablet) 160 mg PO DAILY [facility] Last Admin: 05/30/23 08:18 Dose: 160 mg Gabapentin (Gabapentin 300 Mg Capsule) 300 mg PO BEDTIME [facility] Last Admin: 05/29/23 20:42 Dose: Not Given Glucose (Glucose Gel 15 Gm Gel..Gram.) 15 gm PO Q15M PRN; Protocol PRN Reason: per Hypoglycemia Standing Ord. Heparin Sodium (Porcine) (Heparin Sodium,Porcine 5,000 Unit/Ml Vial) 5,000 unit SUBCUT Q12H [facility] Last Admin: 05/30/23 05:46 Dose: 5,000 unit Insulin Glargine (Insulin Glargine,Hum.Rec.Anlog 100 Unit/Ml 10 Ml Vial) 12 unit SUBCUT DAILY [facility] Last Admin: 05/30/23 09:11 Dose: 12 unit Insulin Human Lispro (Insulin Lispro 100 Unit/Ml 3 Ml Vial) 0 unit SUBCUT QIDACHS [facility]; Protocol Last Admin: 05/30/23 11:47 Dose: Not Given Ketorolac Tromethamine (Ketorolac Tromethamine 15 Mg/Ml Vial) 15 mg IVPUSH Q6H [facility] Last Admin: 05/30/23 11:55 Dose: 15 mg Lidocaine (Lidocaine 4 % Patch Adh..Patch) 1 patch TRANSDERMA DAILY [facility]; Protocol Last Admin: 05/30/23 08:21 Dose: 1 patch Lorazepam (Lorazepam 1 Mg Tablet) 1 mg PO BID PRN PRN Reason: anxiety Nicotine Polacrilex (Nicotine Polacrilex 2 Mg Gum) 2 mg BUCCAL Q1H PRN PRN Reason: nicotein cravings Non-Formulary Medication (Alfuzosin) 10 mg PO BEDTIME [facility] Omeprazole (Omeprazole 20 Mg Capsule.Dr) 20 mg PO DAILY@0630 [facility] Last Admin: 05/30/23 05:46 Dose: 20 mg Ondansetron HCl (Ondansetron Hcl 4 Mg/2 Ml Vial) 4 mg IVPUSH Q8H PRN PRN Reason: Nausea and Vomiting Last Admin: 05/29/23 16:55 Dose: 4 mg Oxycodone HCl (Oxycodone Hcl Immed Release 5 Mg Tablet) 5 mg PO Q4H PRN PRN Reason: back pain Last Admin: 05/30/23 13:18 Dose: 5 mg Prednisone (Prednisone 20 Mg Tablet) 40 mg PO DAILY [facility] Last Admin: 05/30/23 08:18 Dose: 40 mg Sertraline HCl (Sertraline Hcl 25 Mg Tablet) 25 mg PO DAILY [facility] Last Admin: 05/30/23 08:18 Dose: 25 mg Sertraline HCl (Sertraline Hcl 100 Mg Tablet) 100 mg PO DAILY [facility] Last Admin: 05/30/23 08:18 Dose: 100 mg Sodium Chloride (0.9 % Sodium Chloride Flush 3 Ml Syringe) 3 ml IVFLUSH QSHIFT [facility] Last Admin: 05/30/23 08:19 Dose: 3 ml Tamsulosin HCl (Tamsulosin Hcl 0.4 Mg Capsule) 0.4 mg PO BEDTIME [facility] Last Admin: 05/29/23 20:42 Dose: 0.4 mg Torsemide (Torsemide 20 Mg Tablet) 20 mg PO Q48H [facility]; Protocol Last Admin: 05/29/23 21:34 Dose: 20 mg Zolpidem Tartrate (Zolpidem Tartrate 5 Mg Tablet) 5 mg PO BEDTIME PRN PRN Reason: Insomnia Last Admin: 05/29/23 21:34 Dose: 5 mg Home Medications Medication Instructions Recorded Confirmed Type albuterol sulfate 90 mcg/actuation 2 puff inhalation Q4H PRN Cough 04/25/20 05/27/23 History aerosol inhaler clopidogrel 75 mg tablet 75 mg PO DAILY 04/25/20 05/27/23 History insulin glargine 100 unit/mL (3 48 unit subcut DAILY 04/25/20 05/27/23 History mL) subcutaneous pen (Lantus Solostar U-100 Insulin) pantoprazole 40 mg tablet,delayed 40 mg PO DAILY@0630 04/25/20 05/27/23 History release sertraline 25 mg tablet 25 mg PO DAILY 04/25/20 05/27/23 History fenofibrate nanocrystallized 145 1 tab PO DAILY 02/04/21 05/27/23 History mg tablet insulin lispro 100 unit/mL 13 unit subcut TID 02/04/21 05/27/23 History subcutaneous pen (Humalog KwikPen (U-100) Insulin) pen needle, diabetic 31 gauge x 02/04/21 11/16/22 History /16 (BD Ultra-Fine Short Pen Needle) sertraline 100 mg tablet 100 mg PO DAILY 05/25/21 05/27/23 History flash glucose sensor (FreeStyle #1 ea 11/06/21 11/16/22 History Neville 14 Day Sensor kit) duloxetine 20 mg capsule,delayed 40 mg PO BID 02/22/22 05/27/23 History release docusate sodium 100 mg capsule 100 mg PO BID 03/29/22 05/27/23 History torsemide 20 mg tablet 20 mg PO Q48H 12/10/22 05/27/23 History tamsulosin 0.4 mg capsule 0.4 mg PO BEDTIME 05/27/23 05/27/23 History Allergies Allergy/AdvReac Type Severity Reaction Status Date / Time egg [EGG] Allergy Severe NAUSEA, Verified 11/16/22 14:33 ITCHY THROAT meperidine [From DEMEROL] Allergy Unknown AGITATION Verified 11/16/22 14:33 Physical Exam Vital signs: Vital Signs Temp 98.1 F 05/30/23 15:50 Pulse 82 05/30/23 15:50 Resp 18 05/30/23 15:50 BP 142/70 H 05/30/23 15:50 Pulse Ox 99 05/30/23 15:50 O2 Del Method Room Air 05/30/23 15:50 Intake & Output 05/29/23 05/30/23 05/30/23 18:59 06:59 18:59 Intake Total 1391.667 / 3431.667 2040 / 3431.667 600 / 600 Output Total 2450 / 2450 450 / 450 Balance 1391.667 / 981.667 -410 / 981.667 150 / 150 Urine Output (Average ml/kg/hr) 2.65 0.49 Intake: Intake, Oral Amount 480 / 1520 1040 / 1520 600 / 600 Intake, IV Amount 911.667 / 6431.333 1893 / 1911.667 0.9 % Sodium Chloride 1,000 ml 911.667 / 6528.707 9824 / 1911.667 @ 100 mls/hr IVCONT .Q10H [facility] Rx#:[id number] Output: Output, Urine Amount 2450 / 2450 450 / 450 Other: Breakfast % Eaten 100% Lunch % Eaten 100% Number of Unmeasured Voids 2 Urine Urinal Urine Color Pale Yellow Last Bowel Movement 05/29/23 05/30/23 Weight 77 kg - Constitutional Present: moderate distress - Routine HEENT Exam Head: Present: normal inspection, normocephalic Eye: Present: normal appearance ENT: Present: mucous membranes moist - Routine Neck Exam Present: supple - Routine Respiratory Exam Present: CTAB - Routine Abdominal Exam Present: nontender. Absent: Ephrata's sign - Routine Extremities Exam Present: tenderness, nontender - Routine Neurological Exam Present: alert, oriented X3 - Detailed Neurological Exam: Coma Scale Eye Opening: Spontaneous (4) Verbal Response: Oriented (5) Motor Response: Obeys commands (6) [place]field Coma Scale Total: 15 - Routine Psychiatric Exam Present: depressed Hem/Onc Consult Result - Labs CBC & Chem 7: 05/28/23 04:59 05/28/23 04:59 Assessment and Plan Patient Active problem list reviewed?: Yes (1) Multiple myeloma Status: Acute Assessment and plan: l proceeded with further workup. Bone marrow exam for further evaluation was done on 04/09, and revealed: Consistent with plasma cell dyscrasia. Plasma cells are 8% of the aspirate and 10-15% of the biopsy. Cytogenetics and fish results are pending. Skeletal survey from 03/24, revealed: Unremarkable whole body bone survey. No lytic or sclerotic process seen. He has diffuse bone and joint pains. l proceeded with a PET scan for initial staging of the myeloma, on 04/28/21: 1. No abnormalities suspicious for metastatic or other malignant lesions are noted. There are no suspicious lytic osseous lesions. 2. Vascular calcifications including coronary. 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 However no abnormality involving t(4.14) or 17p. Details of the regimen including brain side effects of nausea vomiting diarrhea, hypersensitivity reactions, peripheral neuropathy, renal insufficiency, risk of infection, need for antibiotic blood transfusion and growth factors were all addressed with them. He has been started on systemic chemotherapy with RVD regimen for multiple myeloma. He initially seemed to be tolerating it well. SIEP from 05/12: IgG level 2373. IgG kappa monoclonal protein. This has declined from baseline. IgG level from 08/18:709. IgG kappa monoclonal protein. IgG level from 09/08: 601. IgG kappa monoclonal protein. IgG level from 10/10: 498. IgG kappa monoclonal protein. Serum free light chain ratio is down to 4.6 in October, 5.5, in August, down from 11.5 in July. This was encouraging. He has had history of neuropathy. He complains of leg pain. He also complains of suprapubic pain upon micturition. I referred him to Dr. Dominguez, appointment was 11/05. He was seen by Jing Long, her note: He was in house, discharged on 01/04. and again in February, due to nausea and vomiting at home. He was given IV hydration and antiemetics. The Decadron helped. He has been feeling a bit better since he got out, but still fatigued. He is not eating too well. From 04/09/22: His SIEP: Ig, previously 03/24: 2410. Free light chain ratio: 2.75, previously from 03/24: 24.7. From 06/21/2022: IgG 903. Light chain 2.97. Osseous bone survey from 06/21: No obvious bony lesions. Back in November, I had a detailed discussion with him and his . We discussed the fact that, he did not tolerate the treatment, he had significant treatment related toxicity, with nausea and vomiting requiring admissions almost every month. His quality of life was terrible. He has nausea but that predated his diagnosis of myeloma. My concern was that if I were to start him back on treatment, he will get really ill again and require frequent hospital admissions. I had offered him second-line chemotherapy, with carfilzomib, daratumumab and Decadron, before the holidays. They were given handouts, regarding the medications. They have reviewed it. Their concern is treatment related toxicity His IgG level was normal: 923, light chain ratio, is stable at: 2.54. Actually previous one from June was 2.97. Free light chain ratio from 10/05: 2.8. He now presents with episode of nausea vomiting and diarrhea. He was not able to eat and felt dizzy and fell. He also tells me that he has from his , who used to take care of him. He has since been homeless. He was at a friend's house where he fell. He is being managed for the nausea with anti emetics. he has chronic back pain, joint pain + chronic paresthesias and weakness of legs. - ESR elevated, on empiric prednisone started 05/28. - CT lumbar spine shows severe degenerative disc space disease with bilateral neuroforaminal narrowing but no central canal stenosis. He was started on gabapentin - He is on analgesics for the bone pain. PLAN: To proceed with skeletal survey given multiple myeloma: Bilateral small lucent lesions seen in proximal and mid humerus suspicious for myeloma. Rest of the whole body bone survey is unremarkable. Will recheck his immunofixation and free light chain ratio: Ig. IgG kappa monoclonal protein. Free light chain ratio: 2.8. More or less stable. In the past he has had a very difficult time with chemotherapy, ended up in the hospital every time. Will continue to monitor him for now. He is going through some tough times. His girlfriend who used to take care of him, has left him. He is depressed and tearful. He should be able to go to [facility]hab [facility] Once his symptoms get under better control. I can then follow him up as an outpatient. Thank you for the consult, Cc: - Time Spent With Patient Time Spent with Patient (in minutes): 30
[2023-05-30 16:47] LABS: Glucose, Whole Blood 291 mg/dL (60-115)
[2023-05-30] MEDS: Insulin Lispro 100 UNIT/ML 3 ML VIAL SUBCUT ×2 (16:52→21:32)
[2023-05-30] MEDS: Nicotine Polacrilex 2 MG GUM BUCCAL (16:56)
[2023-05-30 20:50] LABS: Glucose, Whole Blood 234 mg/dL (60-115)
[2023-05-30] MEDS: Acetaminophen 325 MG TABLET 650 MG PO (21:24)
[2023-05-30] MEDS: Gabapentin 300 MG CAPSULE PO (21:24)
[2023-05-30] MEDS: Zolpidem Tartrate 5 MG TABLET PO (21:24)
[2023-05-30] MEDS: Amitriptyline HCl 25 MG TABLET PO (21:24)
[2023-05-30] MEDS: Tamsulosin HCL 0.4 MG CAPSULE PO (21:24)
[2023-05-30] MEDS: Atorvastatin Calcium 80 MG TABLET PO (21:24)
[2023-05-31 03:59] VITALS: BP 121/70; PULSE 61; RESP 16; TEMP 36.2; O2SAT 98
[2023-05-31] MEDS: Heparin Sodium,Porcine 5,000 UNIT/ML VIAL 5000 UNIT SUBCUT (05:29)
[2023-05-31] MEDS: Ketorolac Tromethamine 15 MG/ML VIAL IVPUSH ×2 (05:29→11:32)
[2023-05-31] MEDS: Omeprazole 20 MG CAPSULE.DR PO (05:31)
[2023-05-31 07:16] LABS: Glucose, Whole Blood 81 mg/dL (60-115)
[2023-05-31 07:25] VITALS: BP 127/67; PULSE 68; RESP 18; TEMP 36.7; O2SAT 97
[2023-05-31] MEDS: Insulin Glargine,Hum.rec.anlog 100 UNIT/ML 10 ML VIAL 12 UNIT SUBCUT (09:00)
[2023-05-31] MEDS: oxyCODONE HCl Immed Release 5 MG TABLET PO (09:00)
[2023-05-31] MEDS: DULoxetine HCl 20 MG CAPSULE.DR 40 MG PO (09:01)
[2023-05-31] MEDS: Calcium + Vitamin D 250 MG TABLET 500 MG PO (09:01)
[2023-05-31] MEDS: Clopidogrel Bisulfate 75 MG TABLET PO (09:01)
[2023-05-31] MEDS: predniSONE 20 MG TABLET 40 MG PO (09:01)
[2023-05-31] MEDS: Fenofibrate 160 MG TABLET PO (09:01)
[2023-05-31] MEDS: Aspirin 325 MG TABLET PO (09:01)
[2023-05-31] MEDS: Sertraline HCL 25 MG TABLET PO (09:01)
[2023-05-31] MEDS: Lidocaine 4 % Patch ADH..PATCH 1 PATCH TRANSDERMA (09:01)
[2023-05-31] MEDS: Sertraline HCL 100 MG TABLET PO (09:01)
[2023-05-31] MEDS: Docusate Sodium 100 MG CAPSULE PO (09:01)
[2023-05-31] MEDS: 0.9 % Sodium Chloride Flush 3 ML SYRINGE IVFLUSH (09:02)
[2023-05-31] MEDS: Nicotine Polacrilex 2 MG GUM BUCCAL (09:43)
[2023-05-31 10:59] LABS: Glucose, Whole Blood 200 mg/dL (60-115)
[2023-05-31] MEDS: Insulin Lispro 100 UNIT/ML 3 ML VIAL SUBCUT (11:32)
[2023-05-31] MEDS: Albuterol Sulfate 90 MCG 8 GM INHALER 2 PUFF INHALE (11:36)
--- NOTE | 2023-05-31 12:11 | PM.DS ---
DS: Providers Provider Date of Service: 05/31/23 Date of admission: 05/27/23 17:32 Date of discharge: 05/31/23 Primary care physician: Guido Burch III, MD Consults: 05/30/23 11:11 Consult to Hematology / Oncology Routine Consulting Provider: Conrado Villasenor Reason for consultation: persistent back,hip pain- hx MM DS: Diagnosis Discharge Diagnosis (1) Multiple myeloma: Status: Acute (2) Nausea & vomiting: Status: Acute (3) Lightheadedness: Status: Acute (4) Fall: Status: Acute (5) Chronic back pain: Status: Acute DS: Summary Hospital Course Hospital Course: from admission H+P by hospitalist LALITHA Cochran, 05/27/23: 47 year old male with history multiple myeloma (not currently on treatment), CKD stage 3, insulin dependent type 2 diabetes, htn, hld, CAD s/p CABG, nonischemic cardiomyopathy ICD in place, hx CVA, monocloncal gammopathy, and HFrEF presented to the ED for evaluation of nausea, vomiting and diarrhea ongoing for three days. He states has not been able to eat or drink in 3 days. Last episode of vomiting was yesterday though continues with dry heaves and nausea. Reports diarrhea all day yesterday. There is diffuse abd pain. Reports feeling lightheaded this morning and confused and sustained a fall with head strike but no LOC. He states he still feels dizzy but describes a room spinning sensation. He is also reporting severe low back pain, polyarthralgia,bilateral eye pain, blurred vision, bilateral lower extremity weakness and paresthesias but these symptoms have been ongoing for months. He follows with Dr. villasenor in oncology but states his treatment lapsed because he had to leave the area for a time and has not yet resumed treatment. He does smoke marijuana regularly, no other drug use. Occasional etoh use. Reports smoking cessation of 7 months, but resumed yesterday. No fevers, chills, recent illness, sick contacts, eating bad foods, melena, hematochezia, syncope, saddle anesthesia, bowel/bladder dysfunction, shortness of breath, or chest pain. In the ED, VSS, slightly hypertensive to 155/82. There is a leukocytosis 17.3, H/H 10.7/32.4% consistent with baseline. Renal function baseline, elecrolytes normal, except for mag 1.4. Glucose 256. Total CK 232. CRP 2.34, ESR 34. Lipase 147. UA unremarkable. Utox screen positive for MJ. Negative COVID-[address] negative for any acute intracranial abnormality. Chest x-ray negative. CT abdomen/pelvis negative for any acute intra abdominal process. CT lumbar spine shows mild diffuse thoracic: Are disc degenerative change with multilevel disc bulging resulting in mild spinal canal and neural foraminal narrowing but no evidence for acute fracture malalignment. In the ED, has received 2 g IV morphine, 10 mg Reglan, 10 mg cyclobenzaprine, 1 L IV NS, 50 mg Benadryl, and 0.625 mg droperidol. Pt will be observed overnight for persistent nausea and dry heaves with PO intolerance. 47yo M with MM not currently on treatment, CKD3, DM2, HTN, HLD, CAD s/p CABG, NICM with ICD in place, hx CVA, and HFrEF who was admitted for nausea, PO intolerance, and back/joint pain. Hospital course by problem: nausea, PO intolerance, lightheadedness - Resolved with IV fluids + antiemetics. Suspect cannabinoid hyperemesis and counseled patient to avoid THC. chronic back pain, joint pain + chronic paresthesias + weakness of legs - ESR somewhat high, on empiric prednisone started 05/28; taper over the next 12 days [30 mg daily x 4 days, 20 mg daily x 4 days, 10 mg daily x 4 days] - CT lumbar spine shows severe degenerative disc space disease with bilateral neuroforaminal narrowing but no central canal stenosis - started on gabapentin, prn cyclobenzparine, prn APAP, prn lidocaine patch, prn oxycodone - skeletal survey given hx of mutliple myeloma showed bilateral small lucent lesions seen in proximal and mid humerus suspicious for myeloma; he will 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 for short-term rehabilitation. Time Attestation Discharge coordination time: Greater than 30 minutes Quality: Safe Use of Opioids Does Pt have an Active Cancer Diagnosis on the Problem List?: No Quality: Stroke Does the patient have a stroke diagnosis?: No Physical Exam Vital Signs: Vital Signs: Last Vital Signs Temp 98.0 F 05/31/23 07:25 Pulse 68 05/31/23 07:25 Resp 18 05/31/23 07:25 BP 127/67 05/31/23 07:25 Pulse Ox 97 05/31/23 07:25 O2 Del Method Room Air 05/31/23 07:25 BMI result Body Mass Index 25.1 Gen: in no acute distress HEENT: sclera anicteric, moist mucus membranes Neck: supple Lungs: clear to auscultation bilaterally Heart: regular rate and rhythm, no murmurs Abd: soft, non-tender, non-distended Ext: no edema, R hip tenderness Skin: warm/well-perfused Neuro: alert and oriented x3, no focal findings Psych: appropriate affect DS: Data Data Completed and Pending Completed studies during hospitalization [Text1]: Laboratory Results WBC 8.6 X10*3/uL (4.8-10.8) 05/28/23 04:59 RBC 3.59 X10*6/uL (4.60-5.80) L 05/28/23 04:59 Hgb 10.3 g/dl (14.0-18.0) L 05/28/23 04:59 Hct 31.2 % (42.0-52.0) L 05/28/23 04:59 MCV 86.9 fL (80.0-98.0) 05/28/23 04:59 MCH 28.7 pg (27.0-33.0) 05/28/23 04:59 MCHC 33.0 g/dl (31.0-36.0) 05/28/23 04:59 RDW 13.3 % (11.0-16.0) 05/28/23 04:59 Plt Count 350 X10*3/uL (160-400) 05/28/23 04:59 MPV 10.4 fL (9.4-12.4) 05/28/23 04:59 Immature Gran % (Auto) 0.5 % (0.0-0.4) H 05/28/23 04:59 Neut % (Auto) 60.5 % (45-73) 05/28/23 04:59 Lymph % (Auto) 28.7 % (20-40) 05/28/23 04:59 [place] % (Auto) 6.4 % (2-11) 05/28/23 04:59 Eos % (Auto) 3.3 % (0-4) 05/28/23 04:59 Baso % (Auto) 0.6 % (0-2) 05/28/23 04:59 Lymph # (Auto) 2.5 X10*3/uL (1.2-4.9) 05/28/23 04:59 [place] # (Auto) 0.6 X10*3/uL (0.1-1.2) 05/28/23 04:59 Eos # (Auto) 0.3 X10*3/uL (0.0-0.4) 05/28/23 04:59 Baso # (Auto) 0.1 X10*3/uL (0.0-0.2) 05/28/23 04:59 Abs Immat Gran (auto) 0.04 X10*3/uL (0.00-0.03) H 05/28/23 04:59 Absolute Neuts (auto) 5.2 x10*3/uL (2.0-8.3) 05/28/23 04:59 Absolute Nucleated RBC 0.000 X10*3/uL (0.0-0.012) 05/28/23 04:59 Nucleated RBC % (auto) 0.0 /100WBC (0.0-0.2) 05/28/23 04:59 ESR 34 MM/HR (0-15) H 05/27/23 09:55 Hold Purple Top SEE NOTE 05/31/23 05:48 PT 12.5 SEC (11.1-13.3) 05/27/23 09:55 INR 1.0 (0.9-1.1) 05/27/23 09:55 Sodium 140 mmol/L (135-145) 05/28/23 04:59 Potassium 3.8 mmol/L (3.3-5.1) 05/28/23 04:59 Chloride 108 mmol/L (96-108) 05/28/23 04:59 Carbon Dioxide 24 mmol/L (22-29) 05/28/23 04:59 Anion Gap 12 (12-20) 05/28/23 04:59 BUN 15 mg/dL (9-16) 05/28/23 04:59 Creatinine 1.68 mg/dL (0.5-1.4) H 05/28/23 04:59 Estim Creat Clear Calc 53.7 05/28/23 04:59 Estimated GFR 44 05/28/23 04:59 POC Glucose 200 mg/dL (60-115) H 05/31/23 10:56 Random Glucose 168 mg/dL (60-115) H 05/28/23 04:59 Calcium 8.7 mg/dL (8.4-10.2) 05/28/23 04:59 Magnesium 2.0 mg/dL (1.6-2.6) 05/28/23 04:59 Total Bilirubin 0.5 mg/dL (0.0-1.0) 05/27/23 09:55 Direct Bilirubin 0.2 mg/dL (0.0-0.5) 05/27/23 09:55 AST 22 U/L (5-37) 05/27/23 09:55 ALT 13 U/L (0-40) 05/27/23 09:55 Alkaline Phosphatase 52 U/L (39-117) 05/27/23 09:55 Total Creatine Kinase 232 U/L (38-174) H 05/27/23 09:55 Troponin I High Sens 13.0 ng/L (<3.5-35.0) 05/27/23 09:55 C-Reactive Protein 2.34 mg/dL (< or = 0.50) H 05/27/23 09:55 B-Natriuretic Peptide 141 pg/mL (<100) H 05/27/23 09:55 Total Protein 6.8 g/dL (6.5-8.0) 05/27/23 09:55 Albumin 4.0 g/dL (3.5-5.0) 05/27/23 09:55 Lipase 147 U/L (8-78) H 05/27/23 09:55 Urine Color Yellow 05/27/23 15:39 Urine Appearance Clear 05/27/23 15:39 Urine pH 7.5 (5.0-9.0) 05/27/23 15:39 Ur Specific [place] 1.015 (1.005-1.025) 05/27/23 15:39 Urine Protein Trace mg/dL (Neg-Trace) 05/27/23 15:39 Urine Glucose (UA) 500 mg/dL (Negative) H 05/27/23 15:39 Urine Ketones Negative mg/dL (Negative) 05/27/23 15:39 Urine Blood Negative (Negative) 05/27/23 15:39 Urine Nitrite Negative (Negative) 05/27/23 15:39 Ur Leukocyte Esterase Negative (Negative) 05/27/23 15:39 Urine Opiates Screen Not Detected (Not Detect) 05/27/23 15:39 Urine Fentanyl Screen Not Detected (Not Detect) 05/27/23 15:39 Ur Barbiturates Screen Not Detected (Not Detect) 05/27/23 15:39 Ur Phencyclidine Scrn Not Detected (Not Detect) 05/27/23 15:39 Ur Amphetamines Screen Not Detected (Not Detect) 05/27/23 15:39 U Benzodiazepines Scrn Not Detected (Not Detect) 05/27/23 15:39 Urine Cocaine Screen Not Detected (Not Detect) 05/27/23 15:39 U Marijuana (THC) Screen POSITIVE (Not Detect) H 05/27/23 15:39 Ethyl Alcohol < 10 mg/dL 05/27/23 09:55 Rheumatoid Factor < 13.0 IU/mL (<15.0) 05/28/23 16:59 COVID-19 (KATE) Negative (Negative) 05/27/23 09:55 COVID-19 Clin Com See Note 05/27/23 09:55 Influenza Type A (CASSIUS) Negative (Negative) 05/27/23 09:55 Influenza Type B (CASSIUS) Negative (Negative) 05/27/23 09:55 Influenza A & B Note See Note 05/27/23 09:55 Impressions Chest X-Ray 05/27/23 09:37 IMPRESSION: No acute cardiopulmonary findings. Head CT 05/27/23 09:39 IMPRESSION: Unremarkable CT scan of the head. No evidence of acute territorial infarct or hemorrhage. Abdomen/Pelvis CT 05/27/23 13:40 IMPRESSION: No acute intra-abdominal process identified. Fleischner guidelines were followed. Lumbar Spine CT 05/27/23 13:40 IMPRESSION: Mild diffuse thoracolumbar disc degenerative change with multilevel disc bulging resulting in mild spinal canal and neuroforaminal narrowing. No evidence for fracture or malalignment. Discharge Plan Discharge Anticipated Discharge Date/Time: 05/28/23 07:15 Patient Disposition: Xfer SNF Discharge Diagnosis: nausea chronic back/hip pain multiple myeloma Referrals: Guido Burch III, MD [Primary Care Provider] - 1 Week Conrado Villasenor MD [Physician] - 1 Week Discharge Medications: New cyclobenzaprine 10 mg Tablet 10 mg PO TID PRN (Reason: Muscle Spasm) Qty: 30 0RF acetaminophen 325 mg Tablet 650 mg PO Q6H PRN (Reason: Pain, Mild (Pain Scale 1-3)) Qty: 60 0RF lidocaine [Lidocaine Pain Relief] 4 % Adhesive Patch,Medicated 1 patch transdermal DAILY Qty: 30 0RF Protocol: Apply to: Apply to: back nicotine (polacrilex) 2 mg Gum 2 mg buccal Q1H PRN (Reason: nicotein cravings) Qty: 100 0RF gabapentin 300 mg Capsule 300 mg PO BEDTIME Qty: 30 0RF oxycodone 5 mg Tablet 5 mg PO Q4H PRN (Reason: back pain) Qty: 18 0RF Rx Instructions: Partial Fill upon patient request. prednisone 10 mg tablet See Rx Instructions .ROUTE .COMPLEX Qty: 24 0RF Rx Instructions: 30 mg daily x 4 days, then 20 mg daily x 4 days, then 10 mg daily x 4 days Continued aspirin 325 mg Tablet 325 mg PO DAILY Qty: 90 11RF atorvastatin 80 mg tablet 80 mg PO BEDTIME Qty: 90 0RF sertraline 100 mg tablet 100 mg PO DAILY Rx Instructions: one 25 mg tab + one 100 mg tab = 125 mg daily dose calcium carbonate-vitamin D3 [Calcium 500 + D] 500 mg-10 mcg (400 unit) Tablet 1 tab PO DAILY Qty: 90 7RF insulin lispro [Humalog KwikPen Insulin] 100 unit/mL Insulin Pen 13 unit SUBCUT TID (DME) pen needle, diabetic [BD Ultra-Fine Short Pen Needle] 31 gauge x 5/16 needle subcut QID fenofibrate nanocrystallized 145 mg tablet 1 tab PO DAILY duloxetine 20 mg capsule,delayed release(DR/EC) 40 mg PO BID amitriptyline 25 mg Tablet 25 mg PO BEDTIME Qty: 30 0RF torsemide 20 mg tablet 20 mg PO Q48H lorazepam [Ativan] 1 mg tablet 1 mg PO BID PRN (Reason: anxiety) Qty: 14 0RF tamsulosin 0.4 mg capsule 0.4 mg PO BEDTIME clopidogrel 75 mg tablet 75 mg PO DAILY albuterol sulfate 90 mcg/actuation HFA aerosol inhaler 2 puff inhalation Q4H PRN (Reason: Cough) pantoprazole 40 mg tablet,delayed release (DR/EC) 40 mg PO DAILY@0630 sertraline 25 mg tablet 25 mg PO DAILY Rx Instructions: one 25 mg tab + one 100 mg tab = 125 mg daily dose Lantus Solostar U-100 Insulin 100 unit/mL (3 mL) insulin pen 48 unit subcut DAILY alfuzosin 10 mg tablet extended release 24 hr 10 mg PO BEDTIME 90 Days Qty: 90 1RF (DME) FreeStyle [place] 14 Day Sensor Kit See Rx Instructions topical Q2W Qty: 1 Rx Instructions: As directed docusate sodium 100 mg capsule 100 mg PO BID Rx Instructions: HOLD FOR LOOSE STOOLS Diet: Diabetic diet Activity on Discharge: As tolerated Stand Alone Forms: Patient Portal Discharge page Care Plan Goals: full recovery from fall, lightheadness and [place] and vomitting Health Concerns: nausea/vomiting bony pain history of multiple myeloma Plan of Treatment: encourage fluid intake avoid cannabis prednisone taper: 30 mg daily x 4 days, then 20 mg daily x 4 days, then 10 mg daily x 4 days take gabapentin, acetaminophen, cyclobenzaprine, and oxycodone as needed for back/joint pain consider Rheumatology referral stop smoking; use nicotine gum as needed follow up with Dr Villasenor from [facility] Hematology-Oncology in 1 week Please follow up with your primary care doctor within 1 week of discharge from SNF; Return to the hospital if you experience recurrent or worsening symptoms. Assessment: as above
--- NOTE | 2023-05-31 13:59 | MHC.CM.PN ---
DP: PT HAS BEEN MEDICALLY CLEARED FOR DC TO STR AT [facility]. RN AWARE. BLS TRANSPORT BOOKED FOR 2 PM VIA [place]. CENTER AWARE.
[2023-06-01 09:33] LABS: Anti Nuclear Antibody Screen NEGATIVE (NEGATIVE)
[2023-06-02 11:29] LABS: Kappa Light Chain, Free Serum 37.9 mg/L (3.3-19.4); Kappa/Lambda Lt Ch Free Ratio 2.83 (0.26-1.65); Lambda Light Chain, Free Serum 13.4 mg/L (5.7-26.3)
[2023-06-02 12:54] LABS: IgA 181 mg/dL (47-310); IgG 793 mg/dL (600-1640); IgM 43 mg/dL (50-300)
== END 2023-05-31 14:01 | disposition skilled nursing facility (03) ==
LOC: HO.ED 15:09 → HO.EDOVER 17:44 → HO.S3 19:59
PROVIDERS: Internal Medicine; Internal Medicine Medical Oncology; Physician Assistant; Admitting Provider Physician Assistant; Emergency Provider Emergency Medicine; PCP Internal Medicine; Visit Provider Family Medicine
DX: C90.00 Multiple myeloma not having achieved remission (principal); R11.2 Nausea with vomiting, unspecified; R42 Dizziness and giddiness; M54.50 Low back pain, unspecified; D72.829 Elevated white blood cell count, unspecified; M51.36 Other intervertebral disc degeneration, lumbar region; I13.0 Hypertensive heart and chronic kidney disease with heart failure and stage 1 through stage 4 chronic kidney disease, or unspecified chronic kidney disease; I50.22 Chronic systolic (congestive) heart failure; D63.1 Anemia in chronic kidney disease; N18.30 Chronic kidney disease, stage 3 unspecified; E11.22 Type 2 diabetes mellitus with diabetic chronic kidney disease; R06.02 Shortness of breath; R19.7 Diarrhea, unspecified; R70.0 Elevated erythrocyte sedimentation rate; Z79.4 Long term (current) use of insulin; D47.2 Monoclonal gammopathy; Z11.52 Encounter for screening for COVID-19; Z79.01 Long term (current) use of anticoagulants; Z79.899 Other long term (current) drug therapy; Z95.0 Presence of cardiac pacemaker; R10.9 Unspecified abdominal pain; Z95.1 Presence of aortocoronary bypass graft; Z91.81 History of falling
CPT/HCPCS: 36415; 70450; 71045; 72131; 74176; 77075; 80048; 80076; 80307; 81003; 82550; 82784; 82947; 83521; 83690; 83735; 83880; 84484; 85025; 85610; 85652; 86038; 86140; 86334; 86431; 87502; 87635; 93005; 96361; 96365; 96366; 96372; 96375; 96376; 97161; 99221; 99285; J0737; J1200; J1644; J1790; J1885; J2270; J2405; J2765; J3475

== ENCOUNTER → 2023-05-27 17:32 | Outpatient (BNV) | payer OTHER, SELFPAY | PROVIDERS: Admitting Provider Physician Assistant; Emergency Provider Emergency Medicine; PCP Internal Medicine; Visit Provider Physician Assistant | DX: R11.2 Nausea with vomiting, unspecified (principal); M54.9 Dorsalgia, unspecified; N18.30 Chronic kidney disease, stage 3 unspecified; E11.65 Type 2 diabetes mellitus with hyperglycemia | CPT/HCPCS: 99223; 99232; 99239 ==

== ENCOUNTER → 2023-05-27 17:32 | Outpatient (BNV) | payer OTHER, SELFPAY | PROVIDERS: Admitting Provider Physician Assistant; Emergency Provider Emergency Medicine; PCP Internal Medicine; Visit Provider Internal Medicine Medical Oncology | DX: C90.00 Multiple myeloma not having achieved remission (principal) | CPT/HCPCS: 99222 ==

== ENCOUNTER 2023-07-11 14:29 | Emergency (ER) | payer OTHER, SELFPAY ==
--- NOTE | ~2023-07-11 | XR_ITS ---
EXAMINATION: XR CHEST CLINICAL INFORMATION: Chest pain. COMPARISON: Chest radiograph 05/27/2023. TECHNIQUE: AP view of the chest was obtained. FINDINGS: Left chest wall pacer/AICD is in similar positioning to prior. Midline sternotomy wires and mediastinal surgical clips are unchanged. Stable prominence of the cardiomediastinal silhouette. Unchanged central peribronchial cuffing. No new focal airspace densities. No pleural effusion or pneumothorax. Right upper quadrant surgical clips. No acute osseous findings. XR/XR chest 1V IMPRESSION: 1. Unchanged central peribronchial cuffing. 2. No new focal airspace densities. 3. No pleural effusion or pneumothorax.
[2023-07-11 14:38] VITALS: BP 144/77; PULSE 89; O2SAT 100
[2023-07-11 14:39] VITALS: BP 131/76; PULSE 96; RESP 16; TEMP 36.6; O2SAT 100
--- NOTE | 2023-07-11 14:40 | ECG_ITS ---
Test Reason : CHEST PAIN Blood Pressure : / mmHG Vent. Rate : 077 BPM Atrial Rate : 077 BPM P-R Int : 162 ms QRS Dur : 072 ms QT Int : 396 ms P-R-T Axes : 062 -10 024 degrees QTc Int : 448 ms Normal sinus rhythm Inferior infarct (cited on or before 30-AUG-2021) Abnormal ECG When compared with ECG of 27-MAY-2023 09:45, Nonspecific T wave abnormality, worse in Lateral leads Referred By: Kali Soria Electronically Signed By:LAY TAMAYO MD
--- NOTE | 2023-07-11 14:52 | ED_ITS ---
HPI - General Adult General Chief complaint: General Medical Stated complaint: CHEST PAIN X 3 DAYS Time Seen by Provider: 07/11/23 14:40 Source: patient Mode of arrival: ambulatory Limitations: no limitations History of Present Illness HPI narrative: 48 year old male hx of cad, systolic chf, ckd, cva, hld, dm, htn, icd in place due to ischemic cardiomyopathy, monoclonal gammopathy, multiple myeloma presenting w/ substernal cp w/ radiation to back, sob. Patient was advised to come in by his PCP who he saw earlier today. At the PCP apt patient was noted to by hyperglycemic POC 576, patient reports non med compliance with diabetic meds. No a/c fevers, chills, cough, n/v/d, abd pain, headache, vision changes, dizziness. Also reports depression and anxiety and is requesting to speak to someone. His son got killed 6 months ago and recently he lost his . No si or hi . Recently homeless Related Data Home Medications Medication Instructions Recorded Confirmed albuterol sulfate 90 mcg/actuation 2 puff inhalation Q4H PRN Cough 04/25/20 06/20/23 aerosol inhaler clopidogrel 75 mg tablet 75 mg PO DAILY 04/25/20 06/20/23 insulin glargine 100 unit/mL (3 48 unit subcut DAILY 04/25/20 06/20/23 mL) subcutaneous pen (Lantus Solostar U-100 Insulin) pantoprazole 40 mg tablet,delayed 40 mg PO DAILY@0630 04/25/20 06/20/23 release sertraline 25 mg tablet 25 mg PO DAILY 04/25/20 06/20/23 fenofibrate nanocrystallized 145 1 tab PO DAILY 02/04/21 06/20/23 mg tablet insulin lispro 100 unit/mL 13 unit subcut TID 02/04/21 06/20/23 subcutaneous pen (Humalog KwikPen (U-100) Insulin) pen needle, diabetic 31 gauge x 02/04/21 06/20/23 5/16 (BD Ultra-Fine Short Pen Needle) sertraline 100 mg tablet 100 mg PO DAILY 05/25/21 06/20/23 flash glucose sensor (FreeStyle #1 ea 11/06/21 06/20/23 [place] 14 Day Sensor kit) duloxetine 20 mg capsule,delayed 40 mg PO BID 02/22/22 06/20/23 release docusate sodium 100 mg capsule 100 mg PO BID 03/29/22 06/20/23 torsemide 20 mg tablet 20 mg PO Q48H 12/10/22 06/20/23 tamsulosin 0.4 mg capsule 0.4 mg PO BEDTIME 05/27/23 06/20/23 Previous Rx's Medication Instructions Recorded amitriptyline 25 mg tablet 25 mg PO BEDTIME #30 tabs 02/25/22 lorazepam 1 mg tablet (Ativan) 1 mg PO BID PRN anxiety #14 tabs 10/28/22 aspirin 325 mg tablet 325 mg PO DAILY #90 tabs 01/31/23 atorvastatin 80 mg tablet 80 mg PO BEDTIME #90 tabs 03/03/23 alfuzosin 10 mg tablet,extended 10 mg PO BEDTIME 90 days #90 tabs 04/01/23 release 24 hr calcium carbonate 500 mg-vitamin 1 tab PO DAILY #90 tabs 04/12/23 D3 10 mcg (400 unit) tablet (Calcium 500 + D) acetaminophen 325 mg tablet 650 mg (2 x 325 mg) PO Q6H PRN 05/31/23 Pain, Mild (Pain Scale 1-3) #60 tabs cyclobenzaprine 10 mg tablet 10 mg PO TID PRN Muscle Spasm #30 05/31/23 tabs gabapentin 300 mg capsule 300 mg PO BEDTIME #30 caps 05/31/23 lidocaine 4 % topical patch 1 patch transdermal DAILY #30 ea 05/31/23 (Lidocaine Pain Relief) nicotine (polacrilex) 2 mg gum 2 mg buccal Q1H PRN nicotein 05/31/23 cravings #100 ea oxycodone 5 mg tablet 5 mg PO Q4H PRN back pain #18 tabs 05/31/23 alfuzosin 10 mg tablet,extended 10 mg PO DAILY #90 tabs 07/11/23 release 24 hr amitriptyline 25 mg tablet 25 mg PO BEDTIME #90 tabs 07/11/23 aspirin 81 mg tablet,delayed 81 mg PO DAILY #90 tabs 07/11/23 release atorvastatin 80 mg tablet 80 mg PO BEDTIME #90 tabs 07/11/23 calcium carbonate 500 mg-vitamin 1 tab PO DAILY #90 tabs 07/11/23 D3 10 mcg (400 unit) tablet (Calcium 500 With D) carvedilol 12.5 mg tablet 12.5 mg PO BID #60 tabs 07/11/23 clopidogrel 75 mg tablet 75 mg PO DAILY #90 tabs 07/11/23 docusate sodium 100 mg capsule 100 mg PO BID #120 caps 07/11/23 (Colace) duloxetine 40 mg capsule,delayed 40 mg PO BID #180 caps 07/11/23 release fenofibrate nanocrystallized 145 145 mg PO DAILY #90 tabs 07/11/23 mg tablet flash glucose sensor (FreeStyle #1 ea 07/11/23 [place] 14 Day Sensor kit) gabapentin 300 mg capsule 300 mg PO BEDTIME #90 caps 07/11/23 insulin glargine 100 unit/mL (3 40 unit (0.4 mL) subcut QAM #15 mL 07/11/23 mL) subcutaneous pen (Lantus Solostar U-100 Insulin) insulin lispro 100 unit/mL 10 unit (0.1 mL) subcut TID #15 mL 07/11/23 subcutaneous pen (Humalog KwikPen (U-100) Insulin) pantoprazole 40 mg tablet,delayed 40 mg PO DAILY #90 tabs 07/11/23 release sertraline 100 mg tablet 100 mg PO DAILY #90 tabs 07/11/23 torsemide 20 mg tablet 20 mg PO .q48 #15 tabs 07/11/23 Allergies Allergy/AdvReac Type Severity Reaction Status Date / Time egg [EGG] Allergy Severe NAUSEA, Verified 06/20/23 11:07 ITCHY THROAT meperidine [From DEMEROL] Allergy Unknown AGITATION Verified 06/20/23 11:07 Review of Systems 2 Review of Systems: Yes all other systems are reviewed and are negative PMFSH Past Medical History Attestation statement: The following information was validated with the patient. Source: old records reviewed and nursing notes reviewed Onset Date is defined in the Problem List Problems that require an onset date and time if occurred within 24 hrs of arrival to the ED Aortic Dissection and Rupture; Neurologic impairment; Cardiopulmonary Arrest; Endotracheal Intubation; Insertion or Replacement of Mechanical Circulatory Assist Device Medical History Back pain Bladder pain Multiple myeloma CVA (cerebral vascular accident) Multiple myeloma CKD (chronic kidney disease) Chronic systolic CHF (congestive heart failure) Monoclonal gammopathy ICD (implantable cardioverter-defibrillator) in place Ischemic cardiomyopathy Diabetes mellitus CAD (coronary artery disease) HLD (hyperlipidemia) HTN (hypertension) Surgical History Hx of cardiac cath (~2017) S/P CABG x 2 (~02/2019) Family History Family History Father Esophageal cancer Diabetes mellitus Mother Diabetes mellitus Brother Diabetes mellitus Sister Diabetes mellitus Cervical cancer Social History Social History Household Members: Spouse and Children Housing: House Are you a primary critical care paramedic to a significant other at home: No Do you presently have visiting nurse or other home services: No Alcohol intake: current Alcohol intake frequency: 0-2 drinks per day Alcohol type: hard liquor Comment: low fall risk Patient Tobacco Use Status: Current everyday Tobacco user Smoking Start Date: 03/23/21 Tobacco use type: Cigarette Smoked in Last 30 Days: Yes Use of substances other than those prescribed or required for medical reasons: No Substance Use Type: Marijuana Advance Directives: Yes Advance Directives on File: Yes Advance Directives Date on File: 08/31/21 service: No Current occupational status: disabled Physical Exam ED Vital Signs: Vital Signs - 24 hr 07/11/23 14:39 07/11/23 14:59 07/11/23 20:00 Temperature 97.8 F 97.9 F 97.7 F Pulse Rate 96 87 68 Respiratory Rate 16 16 14 Blood Pressure 131/76 135/83 153/93 H Pulse Oximetry 100 100 100 Oxygen Delivery Method Room Air Room Air Room Air BMI result Body Mass Index 26.0 vss Appearance: Alert.? Oriented X3.? No acute distress.? Head: Normocephalic, atraumatic, no step-offs or deformities Eyes: Pupils equal, round and reactive to light.? CVS: Normal heart rate and rhythm.? Pulses normal.? Respiratory: No respiratory distress.? Breath sounds normal.? Abdomen: Soft and nontender.? Skin: Skin warm and dry.? Normal skin color.? Normal skin turgor.? Extremities: No lower extremity edema.? No calf ttp. 5/5 strength to bilateral upper and lower extremities Neuro: Oriented X 3.? No motor deficit.? No sensory deficit. CN 2-12 intact Course Reevaluation(s) Reevaluation #1: CBC with leukocytosis, chemistry with hyponatremia, potassium 5.3 fluids ordered. MAURI noted. VBG with acidosis, I suspect patient is in diabetic ketoacidosis. I signed this case out to my colleague Dr. Fletcher. Time: 16:24 Medications Administered Discontinued Medications Generic Name Dose Route Start Last Admin Trade Name Art PRN Reason Stop Dose Admin Aspirin 81 mg 07/11/23 16:50 07/11/23 17:21 Aspirin Enteric Coated 81 Mg Tablet. PO 07/11/23 16:51 81 mg ONCE ONE Administration Atorvastatin Calcium 80 mg 07/11/23 16:50 07/11/23 17:21 Atorvastatin Calcium 80 Mg Tablet PO 07/11/23 16:51 80 mg ONCE ONE Administration Carvedilol 12.5 mg 07/11/23 16:54 07/11/23 17:21 Carvedilol 12.5 Mg Tablet PO 07/11/23 16:55 12.5 mg ONCE ONE Administration Protocol Clopidogrel Bisulfate 75 mg 07/11/23 16:50 07/11/23 17:21 Clopidogrel Bisulfate 75 Mg Tablet PO 07/11/23 16:51 75 mg ONCE ONE Administration Fenofibrate 134 mg 07/11/23 16:50 07/11/23 18:40 Fenofibrate,Micronized 134 Mg Capsule PO 07/11/23 16:51 134 mg ONCE ONE Administration Sodium Chloride 500 mls @ 500 mls/hr 07/11/23 15:00 07/11/23 17:18 Ns IV 07/11/23 15:59 Infused .Q1H MAGUI Infusion Sodium Chloride 1,000 mls @ 999 mls/hr 07/11/23 16:49 07/11/23 17:22 Ns IV 07/11/23 17:49 999 mls/hr .Q1H1M ONE Administration Insulin Glargine 40 unit 07/11/23 16:50 07/11/23 17:20 Insulin Glargine,Hum.Rec.Anlog 100 Unit/Ml 10 Ml Vial SUBCUT 07/11/23 16:51 40 unit ONCE ONE Administration Insulin Human Regular 10 unit 07/11/23 17:19 07/11/23 17:21 Insulin Regular, Human 100 Unit/Ml 3 Ml Vial IVPUSH 07/11/23 17:20 10 unit ONCE ONE Administration Oxycodone HCl 10 mg 07/11/23 16:54 07/11/23 17:21 Oxycodone Hcl Immed Release 5 Mg Tablet PO 07/11/23 16:55 10 mg ONCE ONE Administration Medical Decision Making Medical Decision Making [facility] Narrative: 48 yo m presents w/ substernal cp w/ radiaiton into back & sob. Also depression and anxiety due to increasing life stressors PE benign Concerns for non cardiac related chest pain versus anxiety. Unlikely ACS, unstable angina, dissection, pulmonary embolism, pneumonia, acute respiratory distress. Will rule out viral illness. Will also rule out metabolic derangements and diabetic ketoacidosis due to poor med compliance. Likely depression and anxiety due to increasing life stressors [facility] acute psychosis Plan- labs, imaging 445pm patient seen and re-evaluated diabetic on insulin coronary disease with history of cocaine use status post stent AICD and three-vessel bypass 5 years ago, CKD no medications since 06/23 as unable to get the filled with increased stress as his son was killed few days ago sent from PCP office sugar of 576 lab workup showed hyperglycemia nonketotic with elevated creatinine potassium of 5.3, will get fluids and insulin and re-evaluate 9 pm patient is seen by case management Bert stay with someone from the [facility] and plan to stay in custodial or in [facility], medication refilled patient blood sugar in feeling much better will discharge patient home Differential Diagnosis Differential Diagnoses: The differential diagnosis associated with the presentation includes Concerns for non cardiac related chest pain versus anxiety. Unlikely ACS, unstable angina, dissection, pulmonary embolism, pneumonia, acute respiratory distress. Will rule out viral illness. Will also rule out metabolic derangements and diabetic ketoacidosis due to poor med compliance. Likely depression and anxiety due to increasing life stressors [facility] acute psychosis Admission/Observation Consideration of admission/observation: Escalation of care including admission/observation considered possible Lab Data [facility] Lab Attestation statement: I reviewed the patient's lab results. 07/11/23 15:49 07/11/23 15:49 Labs: Lab Results 07/11/23 07/11/23 07/11/23 Range/Units 14:42 15:49 15:54 WBC 11.1 H (4.8-10.8) X10*3/uL RBC 3.77 L (4.60-5.80) X10*6/uL Hgb 10.8 L (14.0-18.0) g/dl Hct 31.9 L (42.0-52.0) % MCV 84.6 (80.0-98.0) fL MCH 28.6 (27.0-33.0) pg MCHC 33.9 (31.0-36.0) g/dl RDW 13.0 (11.0-16.0) % Plt Count 330 (160-400) X10*3/uL MPV 10.8 (9.4-12.4) fL Immature Gran % (Auto) 0.3 (0.0-0.4) % Neut % (Auto) 71.2 (45-73) % Lymph % (Auto) 21.5 (20-40) % [place] % (Auto) 5.7 (2-11) % Eos % (Auto) 0.8 (0-4) % Baso % (Auto) 0.5 (0-2) % Lymph # (Auto) 2.4 (1.2-4.9) X10*3/uL [place] # (Auto) 0.6 (0.1-1.2) X10*3/uL Eos # (Auto) 0.1 (0.0-0.4) X10*3/uL Baso # (Auto) 0.1 (0.0-0.2) X10*3/uL Abs Immat Gran (auto) 0.03 (0.00-0.03) X10*3/uL Absolute Neuts (auto) 7.9 (2.0-8.3) x10*3/uL Absolute Nucleated RBC 0.000 (0.0-0.012) X10*3/uL Nucleated RBC % (auto) 0.0 (0.0-0.2) /100WBC PT 12.1 (11.1-13.3) SEC INR 1.0 (0.9-1.1) D-Dimer High Sensitivty 150 NG/ML VBG pH 7.31 L (7.32-7.43) VBG pCO2 44 mmHg VBG pO2 30 mmHg VBG HCO3 23 (22-26) mmol/L VBG O2 Saturation 42.0 % VBG Base Excess -3.0 mmol/L Sodium 131 L (135-145) mmol/L Potassium 5.3 H (3.3-5.1) mmol/L Chloride 101 (96-108) mmol/L Carbon Dioxide 22 (22-29) mmol/L Anion Gap 13 (12-20) BUN 18 H (9-16) mg/dL Creatinine 1.84 H (0.5-1.4) mg/dL Estim Creat Clear Calc 45.4 Estimated GFR 39 POC Glucose 513 H* (60-115) mg/dL Random Glucose 483 H* (60-115) mg/dL Calcium 9.6 D (8.4-10.2) mg/dL Magnesium 2.0 (1.6-2.6) mg/dL Total Bilirubin 0.3 (0.0-1.0) mg/dL AST 22 (5-37) U/L ALT 20 (0-40) U/L Alkaline Phosphatase 80 (39-117) U/L Troponin I High Sens 9.6 (<3.5-35.0) ng/L B-Natriuretic Peptide 102 H (<100) pg/mL Total Protein 7.4 (6.5-8.0) g/dL Albumin 4.2 (3.5-5.0) g/dL Beta-Hydroxybutyrate 0.08 (0.02-0.27) mmol/L 07/11/23 07/11/23 07/11/23 Range/Units 17:11 18:43 20:55 WBC (4.8-10.8) X10*3/uL RBC (4.60-5.80) X10*6/uL Hgb (14.0-18.0) g/dl Hct (42.0-52.0) % MCV (80.0-98.0) fL MCH (27.0-33.0) pg MCHC (31.0-36.0) g/dl RDW (11.0-16.0) % Plt Count (160-400) X10*3/uL MPV (9.4-12.4) fL Immature Gran % (Auto) (0.0-0.4) % Neut % (Auto) (45-73) % Lymph % (Auto) (20-40) % [place] % (Auto) (2-11) % Eos % (Auto) (0-4) % Baso % (Auto) (0-2) % Lymph # (Auto) (1.2-4.9) X10*3/uL [place] # (Auto) (0.1-1.2) X10*3/uL Eos # (Auto) (0.0-0.4) X10*3/uL Baso # (Auto) (0.0-0.2) X10*3/uL Abs Immat Gran (auto) (0.00-0.03) X10*3/uL Absolute Neuts (auto) (2.0-8.3) x10*3/uL Absolute Nucleated RBC (0.0-0.012) X10*3/uL Nucleated RBC % (auto) (0.0-0.2) /100WBC PT (11.1-13.3) SEC INR (0.9-1.1) D-Dimer High Sensitivty NG/ML VBG pH (7.32-7.43) VBG pCO2 mmHg VBG pO2 mmHg VBG HCO3 (22-26) mmol/L VBG O2 Saturation % VBG Base Excess mmol/L Sodium (135-145) mmol/L Potassium (3.3-5.1) mmol/L Chloride (96-108) mmol/L Carbon Dioxide (22-29) mmol/L Anion Gap (12-20) BUN (9-16) mg/dL Creatinine (0.5-1.4) mg/dL Estim Creat Clear Calc Estimated GFR POC Glucose 346 H 120 H 143 H (60-115) mg/dL Random Glucose (60-115) mg/dL Calcium (8.4-10.2) mg/dL Magnesium (1.6-2.6) mg/dL Total Bilirubin (0.0-1.0) mg/dL AST (5-37) U/L ALT (0-40) U/L Alkaline Phosphatase (39-117) U/L Troponin I High Sens (<3.5-35.0) ng/L B-Natriuretic Peptide (<100) pg/mL Total Protein (6.5-8.0) g/dL Albumin (3.5-5.0) g/dL Beta-Hydroxybutyrate (0.02-0.27) mmol/L Independent Interpretation I performed an independent interpretation of an: EKG and Plain X-Ray Radiology Impression Discussion of test interpretation with radiology: I have reviewed the radiologist's reading. Chronic Conditions Patient?s care impacted by: Diabetes Critical Care Time Critical Care Time Critical Care Time: Yes Total Critical Care Time: 35 Attestation: I attest to this time spent taking care of the patient, obtaining history, physical, reviewing labs, imaging, speaking to my attending, speaking to specialist. Discharge Plan Discharge Clinical Impression: Diabetes mellitus with hyperglycemia Patient Disposition: Home, Self-Care Instructions: Diabetic Hyperglycemia (ED) Additional Instructions: Take medication on time as prescribed Check your sugar on a regular basis before meals and take insulin guarding to sliding scale as prescribed by your PCP Drink plenty of fluids [place] los medicamentos a tiempo seg?n lo prescrito Controle aquino nivel de az?car con regularidad antes de las comidas y tome la protecci?n de insulina seg?n la escala m?mary carmen recetada por aquino PCP. Beber mucho l?quido Prescriptions: New alfuzosin 10 mg tablet extended release 24 hr 10 mg PO DAILY Qty: 90 0RF Rx Instructions: administer after the same meal each day amitriptyline 25 mg tablet 25 mg PO BEDTIME Qty: 90 0RF aspirin 81 mg tablet,delayed release (DR/EC) 81 mg PO DAILY Qty: 90 0RF atorvastatin 80 mg tablet 80 mg PO BEDTIME Qty: 90 0RF calcium carbonate-vitamin D3 [Calcium 500 With D] 500 mg-10 mcg (400 unit) tablet 1 tab PO DAILY Qty: 90 0RF clopidogrel 75 mg tablet 75 mg PO DAILY Qty: 90 0RF docusate sodium [Colace] 100 mg capsule 100 mg PO BID Qty: 120 0RF duloxetine 40 mg capsule,delayed release(DR/EC) 40 mg PO BID Qty: 180 0RF fenofibrate nanocrystallized 145 mg tablet 145 mg PO DAILY Qty: 90 0RF gabapentin 300 mg capsule 300 mg PO BEDTIME Qty: 90 0RF pantoprazole 40 mg tablet,delayed release (DR/EC) 40 mg PO DAILY Qty: 90 0RF sertraline 100 mg tablet 100 mg PO DAILY Qty: 90 0RF torsemide 20 mg tablet 20 mg PO .q48 Qty: 15 0RF Rx Instructions: One tablet every other day insulin glargine [Lantus Solostar U-100 Insulin] 100 unit/mL (3 mL) insulin pen 40 unit subcut QAM Qty: 15 3RF insulin lispro [Humalog KwikPen Insulin] 100 unit/mL insulin pen 10 unit subcut TID Qty: 15 3RF Rx Instructions: According to sliding scale carvedilol 12.5 mg tablet 12.5 mg PO BID Qty: 60 0RF Rx Instructions: must administer with a meal/food (DME) FreeStyle [place] 14 Day Sensor Kit See Rx Instructions .Route Qty: 1 0RF Rx Instructions: As directed No Action aspirin 325 mg Tablet 325 mg PO DAILY Qty: 90 11RF atorvastatin 80 mg tablet 80 mg PO BEDTIME Qty: 90 0RF sertraline 100 mg tablet 100 mg PO DAILY Rx Instructions: one 25 mg tab + one 100 mg tab = 125 mg daily dose calcium carbonate-vitamin D3 [Calcium 500 + D] 500 mg-10 mcg (400 unit) Tablet 1 tab PO DAILY Qty: 90 7RF insulin lispro [Humalog KwikPen Insulin] 100 unit/mL Insulin Pen 13 unit SUBCUT TID (DME) pen needle, diabetic [BD Ultra-Fine Short Pen Needle] 31 gauge x 5/16 needle subcut QID fenofibrate nanocrystallized 145 mg tablet 1 tab PO DAILY duloxetine 20 mg capsule,delayed release(DR/EC) 40 mg PO BID amitriptyline 25 mg Tablet 25 mg PO BEDTIME Qty: 30 0RF torsemide 20 mg tablet 20 mg PO Q48H lorazepam [Ativan] 1 mg tablet 1 mg PO BID PRN (Reason: anxiety) Qty: 14 0RF tamsulosin 0.4 mg capsule 0.4 mg PO BEDTIME cyclobenzaprine 10 mg Tablet 10 mg PO TID PRN (Reason: Muscle Spasm) Qty: 30 0RF acetaminophen 325 mg Tablet 650 mg PO Q6H PRN (Reason: Pain, Mild (Pain Scale 1-3)) Qty: 60 0RF lidocaine [Lidocaine Pain Relief] 4 % Adhesive Patch,Medicated 1 patch transdermal DAILY Qty: 30 0RF Protocol: Apply to: Apply to: back nicotine (polacrilex) 2 mg Gum 2 mg buccal Q1H PRN (Reason: nicotein cravings) Qty: 100 0RF gabapentin 300 mg Capsule 300 mg PO BEDTIME Qty: 30 0RF oxycodone 5 mg Tablet 5 mg PO Q4H PRN (Reason: back pain) Qty: 18 0RF Rx Instructions: Partial Fill upon patient request. clopidogrel 75 mg tablet 75 mg PO DAILY albuterol sulfate 90 mcg/actuation HFA aerosol inhaler 2 puff inhalation Q4H PRN (Reason: Cough) pantoprazole 40 mg tablet,delayed release (DR/EC) 40 mg PO DAILY@0630 sertraline 25 mg tablet 25 mg PO DAILY Rx Instructions: one 25 mg tab + one 100 mg tab = 125 mg daily dose Lantus Solostar U-100 Insulin 100 unit/mL (3 mL) insulin pen 48 unit subcut DAILY alfuzosin 10 mg tablet extended release 24 hr 10 mg PO BEDTIME 90 Days Qty: 90 1RF (DME) FreeStyle [place] 14 Day Sensor Kit See Rx Instructions topical Q2W Qty: 1 Rx Instructions: As directed docusate sodium 100 mg capsule 100 mg PO BID Rx Instructions: HOLD FOR LOOSE STOOLS Print Language: Amharic
[2023-07-11 14:59] VITALS: BP 135/83; PULSE 87; RESP 16; TEMP 36.6; O2SAT 100; BMI 26.0
--- NOTE | 2023-07-11 15:12 | PC.NURSE ---
Pt is a&ox4 coming from pcp office with high glucose. Pt also reports having a fall 4 days ago. Reports being homeless and not being able to take home medications for x3 days. Pt uses cane at baseline. moving all extremities independently.
[2023-07-11 16:15] LABS: Beta-Hydroxybutyrate 0.08 mmol/L (0.02-0.27)
[2023-07-11 16:20] LABS: Alanine Aminotransferase 20 U/L (0-40); Albumin Level 4.2 g/dL (3.5-5.0); Alkaline Phosphatase 80 U/L (39-117); Anion Gap 13 (12-20); Aspartate Amino Transferase 22 U/L (5-37); Bilirubin Total 0.3 mg/dL (0.0-1.0); Blood Urea Nitrogen 18 mg/dL (9-16); Calcium 9.6 mg/dL (8.4-10.2); Carbon Dioxide 22 mmol/L (22-29); Chloride 101 mmol/L (96-108); Creatinine Clr Calc Pharmacy 45.4; Estimated Glomerular Filt Rate 39; Glucose Random 483 mg/dL (60-115); Potassium 5.3 mmol/L (3.3-5.1); Sodium 131 mmol/L (135-145); Total Protein 7.4 g/dL (6.5-8.0)
[2023-07-11 16:20] LABS: Venous Blood Gas Refer to POC result
[2023-07-11 16:22] LABS: Troponin-I High Sensitivity 9.6 ng/L (<3.5-35.0)
[2023-07-11 16:23] LABS: B Type Natriuretic Peptide 102 pg/mL (<100)
[2023-07-11] MEDS: Insulin Glargine,Hum.rec.anlog 100 UNIT/ML 10 ML VIAL 40 UNIT SUBCUT (17:20)
[2023-07-11] MEDS: Insulin Regular, Human 100 UNIT/ML 3 ML VIAL 10 UNIT IVPUSH (17:21)
[2023-07-11] MEDS: Atorvastatin Calcium 80 MG TABLET PO (17:21)
[2023-07-11] MEDS: Aspirin Enteric Coated 81 MG TABLET.DR PO (17:21)
[2023-07-11] MEDS: oxyCODONE HCl Immed Release 5 MG TABLET 10 MG PO (17:21)
[2023-07-11] MEDS: Clopidogrel Bisulfate 75 MG TABLET PO (17:21)
[2023-07-11] MEDS: carvediloL 12.5 MG TABLET PO (17:21)
[2023-07-11] MEDS: 0.9 % Sodium Chloride 1,000 ML 999 ML IV (17:22)
[2023-07-11] MEDS: Fenofibrate,Micronized 134 MG CAPSULE PO (18:40)
[2023-07-11 18:47] LABS: Glucose, Whole Blood 346 mg/dL (60-115)
[2023-07-11 18:47] LABS: Glucose, Whole Blood 120 mg/dL (60-115)
[2023-07-11 20:00] VITALS: BP 153/93; PULSE 68; RESP 14; TEMP 36.5; O2SAT 100
--- NOTE | 2023-07-11 20:46 | MHC.EDTECH ---
Brought patient snacks upon doctor's request to maintain blood sugar.
[2023-07-11 21:00] LABS: Glucose, Whole Blood 143 mg/dL (60-115)
[2023-07-11 22:00] VITALS: BP 146/88; PULSE 66; RESP 16; TEMP 36.6; O2SAT 100
--- NOTE | 2023-07-11 22:29 | MHC.CM.ED ---
CM met with patient at the request of Dr. Fletcher. Pt to be discharged, but according to provider, patient is homeless. CM spoke to patient with [facility]. Pt has been either couch surfing with friends or was in STR for past 6 months or more. Pt states has family in [place], but does not speak with them. Pt son was killed 6 months ago, and he has been depressed and has anxiety. Pt denies SI/HI, says he has thought about SI, but has no plans. Pt states he has been sleeping on the street and last night stayed with a sister from the [facility]. States he has no where to go. Pt given list of shelters, but explained that snf need to be called in the morning. CM will speak with provider about pt staying overnight do to homelessness and weather. Requested care team evaluation for depression. CM returned to speak with pt, as provider will keep patient overnight, but patient had already called someone from the [facility] and they were coming to pick him up. Pt states he has no medications, as they are with the last people he stayed with. Provider aware. Patient states he can get prescriptions at the pharmacy. Has disability. Dr. Fletcher speaking with patient in regards to medications. Pt does have a PCP, Dr. Burch. Pt will d/c home with friends from [facility] and snf listing.
[2023-07-11] MEDS: Omeprazole 40 MG CAPSULE.DR PO (22:46)
[2023-07-11] MEDS: Magnesium Hydrox/Alum Hydrox 30 ML ORAL.SUSP PO (22:46)
[2023-07-11 22:52] VITALS: BP 158/82
== END 2023-07-11 22:53 | disposition home or self-care (01) ==
PROVIDERS: Physician Assistant; Emergency Provider Internal Medicine; PCP Internal Medicine
DX: R07.89 Other chest pain (principal); R06.02 Shortness of breath; E11.65 Type 2 diabetes mellitus with hyperglycemia; Z79.4 Long term (current) use of insulin; Z79.899 Other long term (current) drug therapy
CPT/HCPCS: 36415; 71045; 80053; 82010; 82803; 82947; 83735; 83880; 84484; 85025; 85379; 85610; 93005; 96361; 96374; 99285

== ENCOUNTER → 2023-07-11 14:40 | Outpatient (BNV) | payer OTHER, SELFPAY | PROVIDERS: Emergency Provider Internal Medicine; PCP Internal Medicine; Visit Provider Internal Medicine Cardiovascular Disease | DX: R94.31 Abnormal electrocardiogram [ECG] [EKG] (principal); R07.9 Chest pain, unspecified | CPT/HCPCS: 93010 ==

== ENCOUNTER 2023-07-28 08:32 | Outpatient (AMB) | payer OTHER, SELFPAY ==
[2023-07-28 08:42] VITALS: BP 140/94; PULSE 71; BMI 27.3
--- NOTE | 2023-07-28 08:42 | A.OFFVIS_ITS ---
Intake Vital Signs 07/28/23 08:42 Height 5 ft 7 in Weight 174 lb 2.643 oz BMI 27.3 BP 140/94 H Blood Pressure Location Lt brachial Pulse 71 Pulse Source Pulse Oximeter Intake Visit Reasons: Overdue f/up Window Glazier Helper Required: Yes Window Glazier Helper Language: Road Cleaner Name: jonelle Snow [id number] Allergies egg [EGG] Allergy (Severe, Verified 07/28/23 08:45) NAUSEA, ITCHY THROAT meperidine [From DEMEROL] Allergy (Unknown, Verified 07/28/23 08:45) AGITATION Medication List - Last Reconciled 07/28/23 by [facility] Hammer albuterol sulfate 90 mcg/actuation 2 puffs inhalation Q4H PRN alfuzosin ER 10 mg PO DAILY amitriptyline 25 mg PO BEDTIME aspirin 81 mg PO DAILY atorvastatin 80 mg PO BEDTIME calcium carbonate-vitamin D3 500 mg-10 mcg (400 unit) (Calcium 500 + D) 1 tab PO DAILY carvedilol 12.5 mg PO BID clopidogrel 75 mg PO DAILY cyclobenzaprine 10 mg PO TID PRN docusate sodium 100 mg PO BID duloxetine 40 mg PO BID duloxetine (Cymbalta) 20 mg PO BID fenofibrate nanocrystallized 145 mg PO DAILY flash glucose sensor (FreeStyle [place] 14 Day Sensor kit) As directed flash glucose sensor (FreeStyle [place] 14 Day Sensor kit) As directed insulin glargine (Lantus Solostar U-100 Insulin) 40 units (0.4 mL) subcut QAM insulin glargine (Lantus Solostar U-100 Insulin) 48 units subcut DAILY insulin lispro (Humalog KwikPen (U-100) Insulin) 13 units subcut TID insulin lispro (Humalog KwikPen (U-100) Insulin) 10 units (0.1 mL) subcut TID lidocaine 4% (Lidocaine Pain Relief) 1 patch See Protocol transdermal DAILY lorazepam (Ativan) 1 mg PO BID PRN nicotine (polacrilex) 2 mg buccal Q1H PRN pantoprazole 40 mg PO DAILY pen needle, diabetic (BD Ultra-Fine Short Pen Needle) sertraline 100 mg PO DAILY tamsulosin 0.4 mg PO BEDTIME torsemide 20 mg PO Q48H torsemide 20 mg PO .q48 walker (Ultra-Light Rollator [facility]) As Directed HPI Overdue f/up HPI Details Pérez is a 48-year-old male past medical history of hypertension, hyperlipidemia, diabetes, CAD status post 2 vessel coronary artery bypass grafting, ischemic cardiomyopathy, subcutaneous ICD, chronic systolic heart failure, chronic kidney disease, multiple myeloma who presents for follow-up. His last prior visit to our office was 06/23/2022 Today he reports that he is not doing well overall. He tells me that his son was murdered this past year. He also tells me he is now from his . He describes himself as homeless. He says he has been taking his medications recently but did not take them for 5 months. He reports having various pains over his body. When he is very stressed he will notice some discomfort, heaviness in the chest region. No clear exertional chest discomfort. He is mostly sedentary and ambulates with a cane. Denies shortness of breath, PND, orthopnea or edema. No lightheadedness, presyncope, syncope, falls. [facility] Medical History (Updated 07/28/23 @ 13:05 by Amanda Henry, [employer] PROGRAMMER REMOTE-C) Back pain Bladder pain Multiple myeloma CVA (cerebral vascular accident) Multiple myeloma CKD (chronic kidney disease) Chronic systolic CHF (congestive heart failure) Monoclonal gammopathy ICD (implantable cardioverter-defibrillator) in place Ischemic cardiomyopathy Diabetes mellitus CAD (coronary artery disease) HLD (hyperlipidemia) HTN (hypertension) Surgical History Hx of cardiac cath (~2017) S/P CABG x 2 (~02/2019) Family History Father Esophageal cancer Diabetes mellitus Mother Diabetes mellitus Brother Diabetes mellitus Sister Diabetes mellitus Cervical cancer Social History Household Members: Spouse and Children Housing: House Are you a primary home health care provider to a significant other at home: No Do you presently have visiting nurse or other home services: No Alcohol intake: current Alcohol intake frequency: 0-2 drinks per day Alcohol type: hard liquor Comment: low fall risk Patient Tobacco Use Status: Current everyday Tobacco user Smoking Start Date: 03/23/21 Tobacco use type: Cigarette Substance Use Type: Marijuana Advance Directives Date on File: 08/31/21 service: No Current occupational status: disabled Review of Systems Const All systems reviewed & are unremarkable except as noted in HPI and below ENT Denies dizziness Card Reports chest pain, Denies chest pain at rest, Denies chest pain with activity, Denies rapid heart rate, Denies pedal edema, Denies edema, Denies leg edema, Denies lightheadedness, Denies palpitations, Reports dyspnea, Denies dyspnea on exertion and Denies orthopnea Resp Denies cough, Reports dyspnea and Denies dyspnea on exertion GI Denies hematochezia and Denies change in stool character Musc Denies abnormal gait, Denies limited range of motion, Denies muscle cramps, Reports muscle weakness, Denies numbness, Denies radiating pain into limb, Denies stiffness and Denies tingling Neuro Denies abnormal gait, Denies dizziness, Denies numbness and Denies tingling Psych Reports depression Endo Denies palpitations Physical Exam Vital Signs: Last Vital Signs Pulse 71 07/28/23 08:42 BP 140/94 H 07/28/23 08:42 BMI result Body Mass Index 27.3 Const General: cooperative, healthy appearing, comfortable and no acute distress Orientation/consciousness: patient oriented x3 Neck Neck: Yes normal visual inspection Resp Effort & Inspection: normal respiratory effort Auscultation: clear to auscultation bilaterally, no crackles, no rales, no rhonchi and no wheezes Cardio Jugular venous distension: no JVD Rate: regular rate Rhythm: regular rhythm Heart sounds: S1 normal heart sound present, S2 normal heart sound present, no murmurs and no rubs Neuro General: patient oriented x3 Extrem General: Yes normal to inspection and No no pedal edema Psych Appearance: grossly normal Mental Status: mental status grossly normal Speech and movement: Normal speech and movement present Assessment & Plan Assessment & Plan (1) Chronic systolic CHF (congestive heart failure): Comment: Ischemic cardiomyopathy Code(s): I50.22 - Chronic systolic (congestive) heart failure Plan: History of chronic systolic heart failure. Has been hospitalized past however not recently for this diagnosis. Currently on torsemide 20 mg every other day. On examination today he does not appear to be in decompensated heart failure. He does report some shortness of breath with activity but admits to being mostly sedentary. Last echo done 10/13/2020 showed EF 35-40%, grade 2 diastolic dysfunction. He does report recent med compliance even though he does have social issues. Will have nurse navigator get involved and help with med monitoring. Will update echo prior to his next visit. (2) CAD (coronary artery disease): Code(s): I25.10 - Atherosclerotic heart disease of [place] coronary artery without angina pectoris Plan: hx CAD with RCA stents 2017 and then 2 vessel CABG 02/2019. Echocardiogram done at [facility] on 01/14/2021 shows EF 35-40%, grade 3 diastolic dysfunction no significant valve abnormalities, probable basal to mid lateral/inferior wall hypokinesis to akinesis. Nuclear stress test done at [facility] on 01/09/2021 shows fixed lateral and inferior lateral perfusion defect minimal reve rsibility in the anterior most portion of the lateral wall defect consistent with scar and minimal associated ischemia. No reports of anginal sounding symptoms. No signs of acute HF on exam today. Continue current meds including aspirin, plavix, atorvastatin, carvedilol. Is no longer on a/Arb due to his kidney function. He previously had used cocaine however states at this time he is no longer using. (3) CKD (chronic kidney disease): Code(s): N18.9 - Chronic kidney disease, unspecified Plan: History of chronic kidney disease. Had been following with Nephrology. Last labs 07/18/2023 showed creatinine 2.07. (4) S/P CABG x 2: Onset Date: ~02/2019 Comment: MALONEY to LAD, GSV to LCx OM Code(s): Z95.1 - Presence of aortocoronary bypass graft Plan: As above (5) ICD (implantable cardioverter-defibrillator) in place: Comment: [employer] Code(s): Z95.810 - Presence of automatic (implantable) cardiac defibrillator Plan: Sub Q ICD in place. Functioning normally on prior remote interrogation today. Has remote monitoring. Next office interrogation next visit. (6) HTN (hypertension): Code(s): I10 - Essential (primary) hypertension Plan: Mild elevation today however patient is upset and crying at the visit. He tells me he has a neonatal social worker visit tomorrow. (7) HLD (hyperlipidemia): Code(s): E78.5 - Hyperlipidemia, unspecified Plan: LDL goal < 70. [place] [facility] Continue Atorvastatin. Will enter order for labs and notify patient. (8) Ischemic cardiomyopathy: Code(s): I25.5 - Ischemic cardiomyopathy Plan: Ischemic cardiomyopathy. Last known EF 30-35 %. Subcutaneous icd in place. Continue Carvedilol for neurohormonal modulation. Had been on hydralazine and isosorbide however they are currently office list for unclear reason. Updating echocardiogram Continue torsemide.. s/s HF reviewed. (9) Homelessness: Code(s): Z59.00 - Homelessness unspecified Plan: Reports being currently homeless and has had issues with noncompliance with meds. He has complex cardiac issues. The importance of strict med compliance reviewed with him. Nurse navigator referral made. Plan Time spent on chart review, documentation, interview and assessment Orders: Orders CA echo transthoracic complete Today I50.22 - Chronic systolic (congestive) heart failure Lipid Panel Today I25.10 - Atherosclerotic heart disease of [place] coronary artery without angina pectoris Referrals Nurse Navigator Referral I50.22 - Chronic systolic (congestive) heart failure, Z59.00 - Homelessness unspecified, Z91.199 - Patient's noncompliance with other medical treatment and regimen due to unspecified reason, Z95.810 - Presence of automatic (implantable) cardiac defibrillator Coding Level of Care Code Est Pt Level 4 (50597) Diagnoses Chronic systolic CHF (congestive heart failure) I50.22 CAD (coronary artery disease) I25.10 CKD (chronic kidney disease) N18.9 S/P CABG x 2 Z95.1 ICD (implantable cardioverter-defibrillator) in place Z95.810 HTN (hypertension) I10 HLD (hyperlipidemia) E78.5 Ischemic cardiomyopathy I25.5 Homelessness Z59.00 Time Spent (min) 35
== END 2023-07-28 09:18 | disposition home or self-care (01) ==
PROVIDERS: PCP Internal Medicine; Visit Provider Nurse Practitioner Family
DX: I50.22 Chronic systolic (congestive) heart failure (principal); I25.10 Atherosclerotic heart disease of native coronary artery without angina pectoris; I12.9 Hypertensive chronic kidney disease with stage 1 through stage 4 chronic kidney disease, or unspecified chronic kidney disease; N18.9 Chronic kidney disease, unspecified; Z95.1 Presence of aortocoronary bypass graft; Z95.810 Presence of automatic (implantable) cardiac defibrillator; E78.5 Hyperlipidemia, unspecified; I25.5 Ischemic cardiomyopathy; Z59.00 Homelessness unspecified
CPT/HCPCS: 99214

== ENCOUNTER → 2023-07-28 08:32 | Outpatient (BNVA) | payer OTHER, SELFPAY | PROVIDERS: PCP Internal Medicine; Visit Provider Nurse Practitioner Family | DX: I13.0 Hypertensive heart and chronic kidney disease with heart failure and stage 1 through stage 4 chronic kidney disease, or unspecified chronic kidney disease (principal); N18.9 Chronic kidney disease, unspecified; I50.22 Chronic systolic (congestive) heart failure; I25.10 Atherosclerotic heart disease of native coronary artery without angina pectoris; E78.5 Hyperlipidemia, unspecified; I25.5 Ischemic cardiomyopathy; Z59.00 Homelessness unspecified; Z95.810 Presence of automatic (implantable) cardiac defibrillator; Z95.1 Presence of aortocoronary bypass graft | CPT/HCPCS: 99212 ==

== ENCOUNTER → 2023-07-28 23:59 | Outpatient (BNV) | payer OTHER, SELFPAY ==
--- NOTE | 2023-07-29 14:05 | A.OFFVIS_ITS ---
Intake Intake Visit Reasons: Remote ICD Check- [employer] Allergies egg [EGG] Allergy (Severe, Verified 07/28/23 08:45) NAUSEA, ITCHY THROAT meperidine [From DEMEROL] Allergy (Unknown, Verified 07/28/23 08:45) [facility] Medical History (Updated 07/28/23 @ 13:05 by Amanda Henry, NETWORK ADMINISTRATOR-C) Back pain Bladder pain Multiple myeloma CVA (cerebral vascular accident) Multiple myeloma CKD (chronic kidney disease) Chronic systolic CHF (congestive heart failure) Monoclonal gammopathy ICD (implantable cardioverter-defibrillator) in place Ischemic cardiomyopathy Diabetes mellitus CAD (coronary artery disease) HLD (hyperlipidemia) HTN (hypertension) Surgical History Hx of cardiac cath (~2017) S/P CABG x 2 (~02/2019) Family History Father Esophageal cancer Diabetes mellitus Mother Diabetes mellitus Brother Diabetes mellitus Sister Diabetes mellitus Cervical cancer Social History Household Members: Spouse and Children Housing: House Are you a primary healthcare facility administrator to a significant other at home: No Do you presently have visiting nurse or other home services: No Alcohol intake: current Alcohol intake frequency: 0-2 drinks per day Alcohol type: hard liquor Comment: low fall risk Patient Tobacco Use Status: Current everyday Tobacco user Smoking Start Date: 03/23/21 Tobacco use type: Cigarette Substance Use Type: Marijuana Advance Directives Date on File: 08/31/21 service: No Current occupational status: disabled Office Procedures Cardiac Device Check Cardiac Device Check Details: Remote ICD report generated 07/28/2023. ICD function is adequate. Battery life is at 62%. System impedance is within normal limits. [id number] Cardiac Interrogation, implant defibrillator w/interim Procedure code (CPT) selection complete Assessment & Plan Assessment & Plan (1) ICD (implantable cardioverter-defibrillator) in place: Comment: [employer] Code(s): Z95.810 - Presence of automatic (implantable) cardiac defibrillator Plan: See above Coding Level of Care Code Procedure Only Diagnoses ICD (implantable cardioverter-defibrillator) in place Z95.810 CPT Codes Cardiac Device Check - Cardiac Device 13: [id number] Cardiac Interrogation, implant defibrillator w/interim ([id number])
== END ==
PROVIDERS: PCP Internal Medicine; Visit Provider Internal Medicine Cardiovascular Disease
DX: I25.5 Ischemic cardiomyopathy (principal); Z95.810 Presence of automatic (implantable) cardiac defibrillator
CPT/HCPCS: 93295

== ENCOUNTER 2023-07-29 17:46 | Emergency (ER) | payer OTHER, SELFPAY ==
--- NOTE | ~2023-07-29 | CT_ITS ---
EXAMINATION: CT HEAD WITHOUT CONTRAST CLINICAL INFORMATION: Headache status-post fall. COMPARISON: None available. TECHNIQUE: Contiguous axial imaging was performed from the skull base to vertex without intravenous administration of contrast. Multiplanar reformatted images are submitted. This CT examination was performed using dose optimization techniques as appropriate, variously including the following: *Automated exposure control *Adjustment of mA and/or kV according to patient size (this includes techniques or standardized protocols for targeted exams where dose is matched to indication/reason for exam; i.e. extremities or head) *Use of iterative reconstruction technique DLP: 1127 mGy-cm (head and cervical spine) FINDINGS: There is no acute intracranial hemorrhage or evidence of territorial infarction. No abnormal mass effect or midline shift is seen. Astudillo to white matter differentiation is well preserved. There is no abnormal attenuation within the brain parenchyma. The ventricles are normal in size. No extra-axial fluid collections are identified. A small scalp hematoma is seen in the right occipital region (4:40). There is no underlying fracture. The middle ear cavity and mastoid air cells are clear. The visualized paranasal sinuses are clear. CT/CT cervical spine wo IV con IMPRESSION: 1. No acute intracranial pathology. 2. A small posterior right occipital scalp hematoma is seen, without underlying fracture. EXAMINATION: CT CERVICAL SPINE WITHOUT CONTRAST CLINICAL INFORMATION: Headache status-post fall. COMPARISON: Cervical spine radiographs dated 07/13/2017; CT cervical spine dated 05/17/2010. TECHNIQUE: Contiguous axial imaging was performed through the cervical spine without intravenous administration of contrast. Multiplanar reformatted images are submitted. This CT examination was performed using dose optimization techniques as appropriate, variously including the following: *Automated exposure control *Adjustment of mA and/or kV according to patient size (this includes techniques or standardized protocols for targeted exams where dose is matched to indication/reason for exam; i.e. extremities or head) *Use of iterative reconstruction technique DLP: As above FINDINGS: There is reversal of the normal lordotic curvature. At C4-C5, there is marked disc space narrowing, with endplate sclerosis. A chronically avulsed endplate osteophyte is suspected anterior to the C4 vertebral body. There is moderately severe degenerative disc disease at C5-C6, with accompanying marked anterior spondylosis. The remaining disc spaces are well-maintained. No acute fracture or spondylolisthesis is seen. The posterior elements are intact. The dens is intact. No prevertebral soft tissue swelling is seen. The bilateral lung apices are clear. There is biapical paraseptal emphysematous change. IMPRESSION: 1. No acute fracture or spondylolisthesis is seen. 2. There is moderately severe degenerative disc disease at C4-C5 and C5-C6. Fleischner guidelines were followed.
[2023-07-29 18:10] VITALS: BP 150/65; BP 184/102; PULSE 71; PULSE 88; RESP 16; TEMP 36.7; O2SAT 97; O2SAT 98; BMI 28.2
--- NOTE | 2023-07-29 18:11 | ED_ITS ---
HPI - General Adult General Chief complaint: Fall Stated complaint: cancer pt, fell, neck/back pain,hyperglycemia([phone]) Time Seen by Provider: 07/29/23 18:11 Source: patient, EMS and conference interpreter Mode of arrival: EMS Limitations: language barrier History of Present Illness HPI narrative: Patient is a 48 year old assigned male at with a history of frequent falls, bone cancer, and DM presenting to the emergency department today with a fall. Patient states that he fell again this morning and is having acute on chronic pain. Patient denies any dizziness, lightheadedness, abdominal pain, nausea, vomiting, fever, chills, blurry vision, double vision, loss of vision, chest pain, difficulty breathing, shortness of breath, night sweats, pain with urination, increased urinary frequency, increased urinary urgency, blood in his urine or stool, syncope or a near syncopal episode, bowel incontinence, bladder incontinence, bowel retention, bladder retention, or any other complaints at this time. Onset (ago): minute(s) Associated symptoms: denies other symptoms Related Data Home Medications Medication Instructions Recorded Confirmed albuterol sulfate 90 mcg/actuation 2 puff inhalation Q4H PRN Cough 04/25/20 07/29/23 aerosol inhaler clopidogrel 75 mg tablet 75 mg PO DAILY 04/25/20 07/29/23 pen needle, diabetic 31 gauge x 02/04/21 07/28/23/16 (BD Ultra-Fine Short Pen Needle) sertraline 100 mg tablet 100 mg PO DAILY 05/25/21 07/29/23 flash glucose sensor (FreeStyle #1 ea 11/06/21 07/28/23 Neville 14 Day Sensor kit) docusate sodium 100 mg capsule 100 mg PO BID 03/29/22 07/29/23 torsemide 20 mg tablet 20 mg PO MOWEFR 12/10/22 07/29/23 azelastine 137 mcg (0.1 %) nasal 2 spray intranasal BID 07/29/23 07/29/23 spray aerosol insulin lispro 100 unit/mL 10 - 18 unit subcut TID 07/29/23 07/29/23 subcutaneous pen (Humalog KwikPen (U-100) Insulin) nicotine 7 mg/24 hr daily 7 mg transdermal Q24H PRN Smoking 07/29/23 07/29/23 transdermal patch Cessation oxycodone 10 mg tablet 10 mg PO TID PRN Pain 07/29/23 07/29/23 sertraline 25 mg tablet 25 mg PO DAILY 07/29/23 07/29/23 valacyclovir 500 mg tablet 500 mg PO DAILY 07/29/23 07/29/23 vitamin B complex 1 cap PO DAILY 07/29/23 07/29/23 Previous Rx's Medication Instructions Recorded amitriptyline 25 mg tablet 25 mg PO BEDTIME #30 tabs 02/25/22 atorvastatin 80 mg tablet 80 mg PO BEDTIME #90 tabs 03/03/23 calcium carbonate 500 mg-vitamin 1 tab PO DAILY #90 tabs 04/12/23 D3 10 mcg (400 unit) tablet (Calcium 500 + D) aspirin 81 mg tablet,delayed 81 mg PO DAILY #90 tabs 07/11/23 release carvedilol 12.5 mg tablet 12.5 mg PO BID #60 tabs 07/11/23 duloxetine 40 mg capsule,delayed 40 mg PO BID #180 caps 07/11/23 release fenofibrate nanocrystallized 145 145 mg PO DAILY #90 tabs 07/11/23 mg tablet flash glucose sensor (FreeStyle #1 ea 07/11/23 Neville 14 Day Sensor kit) insulin glargine 100 unit/mL (3 40 unit (0.4 mL) subcut QAM #15 mL 07/11/23 mL) subcutaneous pen (Lantus Solostar U-100 Insulin) pantoprazole 40 mg tablet,delayed 40 mg PO DAILY #90 tabs 07/11/23 release walker (Ultra-Light Rollator misc) #1 ea 07/18/23 Allergies Allergy/AdvReac Type Severity Reaction Status Date / Time egg [EGG] Allergy Severe NAUSEA, Verified 07/29/23 18:10 ITCHY THROAT meperidine [From DEMEROL] Allergy Unknown AGITATION Verified 07/29/23 18:10 Review of Systems 2 Constitutional: Constitutional: Reports no additional constitutional complaints, Denies chills, Denies fever(s) and Denies night sweats Eyes: Eyes: Reports no additional eye complaints, Denies blurry vision, Denies change in vision, Denies diplopia, Denies eye discharge, Denies loss of vision and Denies eye pain ENT: Denies dizziness Cardiovascular: Cardiovascular: Reports no additional cardiovascular complaints, Denies chest pain, Denies lightheadedness, Denies Loss of Consciousness and Denies dyspnea Respiratory: Respiratory: Reports no additional respiratory complaints and Denies dyspnea Gastrointestinal: Gastrointestinal: Reports no additional gastrointestinal complaints, Denies abdominal pain, Denies melena, Denies hematochezia, Denies change in bowel habits and Denies change in stool character Genitourinary: Genitourinary: Reports no additional male genitourinary complaints, Denies hematuria, Denies oliguria, Denies difficulty urinating, Denies dysuria, Denies urinary frequency, Denies urinary hesitancy, Denies urinary incontinence and Denies urinary urgency Musculoskeletal: Musculoskeletal: Reports no additional musculoskeletal complaints, Denies numbness and Denies tingling Neurologic: Denies dizziness, Denies loss of vision, Denies numbness and Denies tingling Psychiatric: Psychiatric: Reports no additional psychiatric complaints Endocrine: Endocrine: Reports no additional endocrine complaints Hematologic/Lymphatic: Hematologic/Lymphatic: Reports no additional hematologic/lymphatic complaints Allergic/Immunologic: Allergic/Immunologic: Reports no additional allergic/immunologic complaints [facility] Past Medical History Attestation statement: The following information was validated with the patient. Source: old records reviewed and nursing notes reviewed Medical History Back pain Bladder pain Multiple myeloma CVA (cerebral vascular accident) Multiple myeloma CKD (chronic kidney disease) Chronic systolic CHF (congestive heart failure) Monoclonal gammopathy ICD (implantable cardioverter-defibrillator) in place Ischemic cardiomyopathy Diabetes mellitus CAD (coronary artery disease) HLD (hyperlipidemia) HTN (hypertension) Surgical History Hx of cardiac cath (~2017) S/P CABG x 2 (~02/2019) Family History Family History Father Esophageal cancer Diabetes mellitus Mother Diabetes mellitus Brother Diabetes mellitus Sister Diabetes mellitus Cervical cancer Social History Social History Household Members: Spouse and Children Housing: House Are you a primary career development director to a significant other at home: No Do you presently have visiting nurse or other home services: No Alcohol intake: current Alcohol intake frequency: 0-2 drinks per day Alcohol type: hard liquor Comment: low fall risk Patient Tobacco Use Status: Current everyday Tobacco user Smoking Start Date: 03/23/21 Tobacco use type: Cigarette Smoked in Last 30 Days: No Use of substances other than those prescribed or required for medical reasons: No Substance Use Type: Marijuana Advance Directives: Yes Advance Directives on File: Yes Advance Directives Date on File: 08/31/21 service: No Current occupational status: disabled Physical Exam ED Vital Signs: Vital Signs - 24 hr 07/29/23 18:10 07/29/23 20:01 07/30/23 00:52 Temperature 98.0 F Pulse Rate 71 79 92 Respiratory Rate 16 12 16 Blood Pressure 150/65 H 157/77 H 126/87 Pulse Oximetry 97 96 95 Oxygen Delivery Method Room Air Room Air Room Air 07/30/23 05:50 07/30/23 08:36 07/30/23 12:35 Temperature 97.4 F 97.8 F Pulse Rate 59 69 69 Respiratory Rate 16 16 Blood Pressure 118/68 124/75 124/75 Pulse Oximetry 97 98 98 Oxygen Delivery Method Room Air Room Air 07/30/23 13:56 Temperature 96.8 F Pulse Rate 59 Respiratory Rate 16 Blood Pressure 117/63 Pulse Oximetry 95 Oxygen Delivery Method Room Air BMI result Body Mass Index 28.2 Const General: cooperative, no acute distress, alert and awake Nutritional Appearance: well nourished Orientation/consciousness: patient oriented x3 Limitations: no limitations HENMT Head: Yes normal to inspection and Yes atraumatic Ears: hearing grossly normal bilaterally and external ears normal General nose exam: Normal external nose present, no nasal discharge noted and no epistaxis Face and sinus: Yes normal facial exam, No abrasion and No laceration Mouth: Normal oral and palatal mucosa present, no drooling and no muffled voice Eyes General: appearance normal, both eyes and all related structures Periorbital: periorbital findings normal Eyelids: Yes eyelids normal Conjunctivae: conjunctivae normal Pupils: Equal, round and reactive pupils present EOM: EOMs intact bilaterally Neck Neck: Yes normal visual inspection, Yes full ROM and Yes no lymphadenopathy Chest Chest palpation & inspection: normal inspection of the chest Resp Effort & Inspection: normal respiratory effort and able to speak in complete sentences Auscultation: clear to auscultation bilaterally Cardio Rate: regular rate Rhythm: regular rhythm GI Inspection: Yes normal to inspection Palpation (GI): Soft to palpation, not firm, nontender and no guarding Neuro General: patient oriented x3 and moves all extremities Cranial nerves: Yes Equal, round and reactive pupils present Cognition (Neuro): normal cognition Motor exam (neuro): 5/5 motor strength present throughout Sensory Exam: Normal double simultaneous stimulation for sensation Coordination: [id number] test normal Extrem General: Yes normal to inspection, Yes full ROM and Yes capillary refill normal Psych Appearance: grossly normal Mental Status: mental status grossly normal Affect: normal affect Attitude: cooperative Thought process: Normal thought process present Thought content: Normal thought content present Insight: Good insight present (Psych) Course Reevaluation(s) Reevaluation #1: Physician observation to be continued. Pending physical therapy and case management. Disposition pending. Will continue to monitor Time: 07:12 Reevaluation #2: Be going to [facility], case management assisted with this transfer. I agree with plan. Time: 14:56 Medications Administered Generic Name Dose Route Start Last Admin Trade Name Freq PRN Reason Stop Dose Admin Aspirin 81 mg 07/30/23 09:00 07/30/23 09:28 Aspirin Enteric Coated 81 Mg Tablet. PO 81 mg DAILY MAGUI Administration Calcium Carbonate/Cholecalciferol 250 mg 07/30/23 09:00 07/30/23 07:56 Calcium + Vitamin D 250 Mg Tablet PO 250 mg DAILY MAGUI Administration Carvedilol 12.5 mg 07/30/23 09:00 07/30/23 09:24 Carvedilol 12.5 Mg Tablet PO 12.5 mg BID MAGUI Administration Protocol Clopidogrel Bisulfate 75 mg 07/30/23 09:00 07/30/23 07:56 Clopidogrel Bisulfate 75 Mg Tablet PO 75 mg DAILY MAGUI Administration Docusate Sodium 100 mg 07/30/23 09:00 07/30/23 07:57 Docusate Sodium 100 Mg Capsule PO 100 mg BID MAGUI Administration Duloxetine HCl 40 mg 07/30/23 09:00 07/30/23 07:56 Duloxetine Hcl 20 Mg Capsule. PO 40 mg BID MAGUI Administration Fenofibrate 160 mg 07/30/23 09:00 07/30/23 09:28 Fenofibrate 160 Mg Tablet PO 160 mg DAILY MAGUI Administration Insulin Glargine 40 unit 07/30/23 03:45 07/30/23 04:09 Insulin Glargine,Hum.Rec.Anlog 100 Unit/Ml 10 Ml Vial SUBCUT Not Given DAILY [facility] Insulin Human Lispro 0 unit 07/30/23 07:30 07/30/23 11:44 Insulin Lispro 100 Unit/Ml 3 Ml Vial SUBCUT 07/31/23 03:35 4 unit QIDACHS [facility] Administration Protocol Multivitamins/Vitamin C 1 tab 07/30/23 09:00 07/30/23 07:56 Multivitamin Tablet PO 1 tab DAILY [facility] Administration Oxycodone HCl 10 mg 07/30/23 03:36 07/30/23 09:25 Oxycodone Hcl Immed Release 5 Mg Tablet PO 10 mg RQ6H WHILE AWAKE PRN Administration Pain, Moderate(Pain Scale 4-6) Sertraline HCl 125 mg 07/30/23 09:00 07/30/23 07:56 Sertraline Hcl 100 Mg Tablet PO 125 mg DAILY [facility] Administration Valacyclovir HCl 500 mg 07/30/23 09:00 07/30/23 09:24 Valacyclovir Hcl 500 Mg Tablet PO 500 mg DAILY [facility] Administration Discontinued Medications Generic Name Dose Route Start Last Admin Trade Name Freq PRN Reason Stop Dose Admin Acetaminophen 650 mg 07/30/23 02:52 07/30/23 04:01 Acetaminophen 325 Mg Tablet PO 07/30/23 02:53 650 mg ONCE ONE Administration Hydromorphone HCl 1 mg 07/29/23 20:15 07/29/23 20:23 Hydromorphone Hcl 1 Mg/Ml Syringe IVPUSH 07/29/23 20:16 1 mg ONCE ONE Administration Protocol Sodium Chloride 1,000 mls @ 999 mls/hr 07/29/23 18:15 07/29/23 19:36 Ns IV 07/29/23 19:15 Infused .Q1H1M MAGUI Infusion Sodium Chloride 1,000 mls @ 999 mls/hr 07/29/23 20:15 07/29/23 21:24 Ns IV 07/29/23 21:15 Infused .Q1H1M MAGUI Infusion Metoclopramide HCl 10 mg 07/29/23 19:01 07/29/23 20:06 Metoclopramide Hcl 10 Mg/2 Ml Vial IVPUSH 07/29/23 19:02 10 mg ONCE ONE Administration Morphine Sulfate 4 mg 07/29/23 18:25 07/29/23 18:37 Morphine Sulfate 4 Mg/Ml Cartridge IVPUSH 07/29/23 18:26 4 mg ONCE ONE Administration Protocol Ondansetron HCl 4 mg 07/29/23 18:25 07/29/23 18:37 Ondansetron Hcl 4 Mg/2 Ml Vial IVPUSH 07/29/23 18:26 4 mg ONCE ONE Administration Medical Decision Making Medical Decision Making [facility] Narrative: Patient is a 48 year old assigned male at with a history of frequent falls, DM, and bone cancer presenting to the emergency department today after a fall and having acute on chronic pain all over. Patient's physical exam was unremarkable. Patient's blood work showed an elevated glucose which is consistent with the patient's history. No evidence of DKA. Patient's urine showed no acute process. Patient's EKG was unremarkable. Patient's head and c- spine CTs showed no acute process. I explained my physical exam findings as well as all test results to the patient. I answered all questions asked by the patient. Patient received multiple doses of IV pain medication which he stated helped his symptoms significantly. When discussing discharge, the patient began to sob and stated that he is homeless with no where to go. Patient states that he continues to have these frequent falls and would like to be sent to a short term rehabilitation center. Case management and physical therapy consults placed. Diet order placed. Physician observation begins. Differential Diagnosis Differential Diagnoses: The differential diagnosis associated with the presentation includes Frequent falls Weakness Bone cancer Homelessness Admission/Observation Consideration of admission/observation: Escalation of care including admission/observation considered Patient would have been admitted to the hospital had his work up had any findings where hospital admission was appropriate and his clinical presentation warranted hospital admission. Lab Data [facility] Lab Attestation statement: I reviewed the patient's lab results. My interpretation of these results are in the [facility] Rationale portion of this note. 07/29/23 18:35 07/29/23 18:35 Labs: Lab Results 07/29/23 07/29/23 07/29/23 Range/Units 18:14 18:35 20:16 WBC 8.9 (4.8-10.8) X10*3/uL RBC 3.57 L (4.60-5.80) X10*6/uL Hgb 10.2 L (14.0-18.0) g/dl Hct 30.8 L (42.0-52.0) % MCV 86.3 (80.0-98.0) fL MCH 28.6 (27.0-33.0) pg MCHC 33.1 (31.0-36.0) g/dl RDW 13.1 (11.0-16.0) % Plt Count 266 (160-400) X10*3/uL MPV 10.6 (9.4-12.4) fL Immature Gran % (Auto) 0.2 (0.0-0.4) % Neut % (Auto) 68.4 (45-73) % Lymph % (Auto) 22.0 (20-40) % [place] % (Auto) 6.1 (2-11) % Eos % (Auto) 2.7 (0-4) % Baso % (Auto) 0.6 (0-2) % Lymph # (Auto) 2.0 (1.2-4.9) X10*3/uL [place] # (Auto) 0.5 (0.1-1.2) X10*3/uL Eos # (Auto) 0.2 (0.0-0.4) X10*3/uL Baso # (Auto) 0.1 (0.0-0.2) X10*3/uL Abs Immat Gran (auto) 0.02 (0.00-0.03) X10*3/uL Absolute Neuts (auto) 6.1 (2.0-8.3) x10*3/uL Absolute Nucleated RBC 0.000 (0.0-0.012) X10*3/uL Nucleated RBC % (auto) 0.0 (0.0-0.2) /100WBC Sodium 138 (135-145) mmol/L Potassium 4.8 (3.3-5.1) mmol/L Chloride 103 (96-108) mmol/L Carbon Dioxide 24 (22-29) mmol/L Anion Gap 16 (12-20) BUN 24 H (9-16) mg/dL Creatinine 1.84 H (0.5-1.4) mg/dL Estim Creat Clear Calc 49.6 Estimated GFR 39 POC Glucose 416 H* (60-115) mg/dL Random Glucose 430 H* (60-115) mg/dL Calcium 9.7 (8.4-10.2) mg/dL Magnesium 1.8 (1.6-2.6) mg/dL Total Bilirubin 0.3 (0.0-1.0) mg/dL AST 20 (5-37) U/L ALT 16 (0-40) U/L Alkaline Phosphatase 49 (39-117) U/L Troponin I High Sens 5.3 (<3.5-35.0) ng/L Total Protein 7.4 (6.5-8.0) g/dL Albumin 4.2 (3.5-5.0) g/dL Urine Color Yellow Urine Appearance Clear Urine pH 6.5 (5.0-9.0) Ur Specific [place] 1.025 (1.005-1.025) Urine Protein Negative (Neg-Trace) mg/dL Urine Glucose (UA) >=1000 H (Negative) mg/dL Urine Ketones Negative (Negative) mg/dL Urine Blood Negative (Negative) Urine Nitrite Negative (Negative) Ur Leukocyte Esterase Negative (Negative) Urine RBC 0-2 (0-2) /HPF Urine WBC 0-5 (0-5) /HPF Ur Squamous Epith Cells 0-2 (0-2) /HPF Urine Bacteria None Seen (None Seen) Hyaline Casts 0-2 (0-2) /LPF COVID-19 (KATE) Negative (Negative) COVID-19 Clin Com See Note Influenza Type A (CASSIUS) Negative (Negative) Influenza Type B (CASSIUS) Negative (Negative) Influenza A & B Note See Note 07/30/23 07/30/23 07/30/23 Range/Units 04:04 07:11 11:22 WBC (4.8-10.8) X10*3/uL RBC (4.60-5.80) X10*6/uL Hgb (14.0-18.0) g/dl Hct (42.0-52.0) % MCV (80.0-98.0) fL MCH (27.0-33.0) pg MCHC (31.0-36.0) g/dl RDW (11.0-16.0) % Plt Count (160-400) X10*3/uL MPV (9.4-12.4) fL Immature Gran % (Auto) (0.0-0.4) % Neut % (Auto) (45-73) % Lymph % (Auto) (20-40) % [place] % (Auto) (2-11) % Eos % (Auto) (0-4) % Baso % (Auto) (0-2) % Lymph # (Auto) (1.2-4.9) X10*3/uL [place] # (Auto) (0.1-1.2) X10*3/uL Eos # (Auto) (0.0-0.4) X10*3/uL Baso # (Auto) (0.0-0.2) X10*3/uL Abs Immat Gran (auto) (0.00-0.03) X10*3/uL Absolute Neuts (auto) (2.0-8.3) x10*3/uL Absolute Nucleated RBC (0.0-0.012) X10*3/uL Nucleated RBC % (auto) (0.0-0.2) /100WBC Sodium (135-145) mmol/L Potassium (3.3-5.1) mmol/L Chloride (96-108) mmol/L Carbon Dioxide (22-29) mmol/L Anion Gap (12-20) BUN (9-16) mg/dL Creatinine (0.5-1.4) mg/dL Estim Creat Clear Calc Estimated GFR POC Glucose 110 98 210 H (60-115) mg/dL Random Glucose (60-115) mg/dL Calcium (8.4-10.2) mg/dL Magnesium (1.6-2.6) mg/dL Total Bilirubin (0.0-1.0) mg/dL AST (5-37) U/L ALT (0-40) U/L Alkaline Phosphatase (39-117) U/L Troponin I High Sens (<3.5-35.0) ng/L Total Protein (6.5-8.0) g/dL Albumin (3.5-5.0) g/dL Urine Color Urine Appearance Urine pH (5.0-9.0) Ur Specific [place] (1.005-1.025) Urine Protein (Neg-Trace) mg/dL Urine Glucose (UA) (Negative) mg/dL Urine Ketones (Negative) mg/dL Urine Blood (Negative) Urine Nitrite (Negative) Ur Leukocyte Esterase (Negative) Urine RBC (0-2) /HPF Urine WBC (0-5) /HPF Ur Squamous Epith Cells (0-2) /HPF Urine Bacteria (None Seen) Hyaline Casts (0-2) /LPF COVID-19 (KATE) (Negative) COVID-19 Clin Com Influenza Type A (CASSIUS) (Negative) Influenza Type B (CASSIUS) (Negative) Influenza A & B Note Independent Interpretation I performed an independent interpretation of an: EKG and CT Scan Interpretation: My interpretation is in agreement with the radiologist's impression of these imaging studies. - EXAMINATION: CT HEAD WITHOUT CONTRAST CLINICAL INFORMATION: Headache status-post fall. COMPARISON: None available. TECHNIQUE: Contiguous axial imaging was performed from the skull base to vertex without intravenous administration of contrast. Multiplanar reformatted images are submitted. This CT examination was performed using dose optimization techniques as appropriate, variously including the following: *Automated exposure control *Adjustment of mA and/or kV according to patient size (this includes techniques or standardized protocols for targeted exams where dose is matched to indication/reason for exam; i.e. extremities or head) *Use of iterative reconstruction technique DLP: 1127 mGy-cm (head and cervical spine) FINDINGS: There is no acute intracranial hemorrhage or evidence of territorial infarction. No abnormal mass effect or midline shift is seen. [place] to white matter differentiation is well preserved. There is no abnormal attenuation within the brain parenchyma. The ventricles are normal in size. No extra-axial fluid collections are identified. A small scalp hematoma is seen in the right occipital region (4:40). There is no underlying fracture. The middle ear cavity and mastoid air cells are clear. The visualized paranasal sinuses are clear. CT/CT head/brain wo IV con IMPRESSION: 1. No acute intracranial pathology. 2. A small posterior right occipital scalp hematoma is seen, without underlying fracture. EXAMINATION: CT CERVICAL SPINE WITHOUT CONTRAST CLINICAL INFORMATION: Headache status-post fall. COMPARISON: Cervical spine radiographs dated 07/13/2017; CT cervical spine dated 05/17/2010. TECHNIQUE: Contiguous axial imaging was performed through the cervical spine without intravenous administration of contrast. Multiplanar reformatted images are submitted. This CT examination was performed using dose optimization techniques as appropriate, variously including the following: *Automated exposure control *Adjustment of mA and/or kV according to patient size (this includes techniques or standardized protocols for targeted exams where dose is matched to indication/reason for exam; i.e. extremities or head) *Use of iterative reconstruction technique DLP: As above FINDINGS: There is reversal of the normal lordotic curvature. At C4-C5, there is marked disc space narrowing, with endplate sclerosis. A chronically avulsed endplate osteophyte is suspected anterior to the C4 vertebral body. There is moderately severe degenerative disc disease at C5-C6, with accompanying marked anterior spondylosis. The remaining disc spaces are well-maintained. No acute fracture or spondylolisthesis is seen. The posterior elements are intact. The dens is intact. No prevertebral soft tissue swelling is seen. The bilateral lung apices are clear. There is biapical paraseptal emphysematous change. IMPRESSION: 1. No acute fracture or spondylolisthesis is seen. 2. There is moderately severe degenerative disc disease at C4-C5 and C5-C6. Fleischner guidelines were followed. Dictated By: Mack Seo MD Signed By: Electronically signed by Mack Seo MD 07/29/231949 - Vent. Rate: 073 BPM Atrial Rate: 073 BPM P-R Int: 184 ms QRS Dur: 080 ms QT Int: 420 ms P-R-T Axes: 076 -08 070 degrees QTc Int: 462 ms Normal sinus rhythm Inferior infarct, age undetermined Abnormal ECG 07/29/23 1826 Radiology Impression Discussion of test interpretation with radiology: I have reviewed the radiologist's reading. Independent Historian Clinical information obtained from an independent historian. History obtained from or confirmed by: EMS (EMS provided additional history and confirmed the history provided by the patient.) Critical Care Time Critical Care Time Critical Care Time: Yes Total Critical Care Time: 45 Attestation: I spent 45 minutes of Critical Care Time with this patient. This does not include time spent on separately reported billable procedures. Discharge Plan Discharge Clinical Impression: Falls frequently Patient Disposition: Xfer Other Transfer Details: [address] [address] Additional Instructions: Take your medications as prescribed. If you were prescribed antibiotics today, it is important that you take your medication to their entirety, do not skip any doses, do not finish them early. Follow-up with your primary care provider this week. Return to the emergency department with new or worsening symptoms. Such as fevers, chills, chest pain, shortness of breath, nausea, vomiting, dizziness, headache, vision changes, lethargy In case of emergency call 911 Prescriptions: No Action atorvastatin 80 mg tablet 80 mg PO BEDTIME Qty: 90 0RF sertraline 100 mg tablet 100 mg PO DAILY Rx Instructions: one 25 mg tab + one 100 mg tab = 125 mg daily dose calcium carbonate-vitamin D3 [Calcium 500 + D] 500 mg-10 mcg (400 unit) Tablet 1 tab PO DAILY Qty: 90 7RF (DME) Ultra-Light Rollator Misc Qty: 1 0RF Rx Instructions: As Directed (DME) pen needle, diabetic [BD Ultra-Fine Short Pen Needle] 31 gauge x 5/16 needle subcut QID amitriptyline 25 mg Tablet 25 mg PO BEDTIME Qty: 30 0RF torsemide 20 mg tablet 20 mg PO MOWEFR azelastine 137 mcg (0.1 %) aerosol,spray 2 spray intranasal BID valacyclovir 500 mg Tablet 500 mg PO DAILY sertraline 25 mg Tablet 25 mg PO DAILY vitamin B complex Capsule 1 cap PO DAILY nicotine 7 mg/24 hr Patch 24 Hour 7 mg transdermal Q24H PRN (Reason: Smoking Cessation) oxycodone 10 mg Tablet 10 mg PO TID PRN (Reason: Pain) insulin lispro [Humalog KwikPen Insulin] 100 unit/mL insulin pen 10 - 18 unit subcut TID Rx Instructions: According to sliding scale aspirin 81 mg tablet,delayed release (DR/EC) 81 mg PO DAILY Qty: 90 0RF duloxetine 40 mg capsule,delayed release(DR/EC) 40 mg PO BID Qty: 180 0RF fenofibrate nanocrystallized 145 mg tablet 145 mg PO DAILY Qty: 90 0RF pantoprazole 40 mg tablet,delayed release (DR/EC) 40 mg PO DAILY Qty: 90 0RF insulin glargine [Lantus Solostar U-100 Insulin] 100 unit/mL (3 mL) insulin pen 40 unit subcut QAM Qty: 15 3RF carvedilol 12.5 mg tablet 12.5 mg PO BID Qty: 60 0RF Rx Instructions: must administer with a meal/food (DME) FreeStyle Neville 14 Day Sensor Kit See Rx Instructions .Route Qty: 1 0RF Rx Instructions: As directed clopidogrel 75 mg tablet 75 mg PO DAILY albuterol sulfate 90 mcg/actuation HFA aerosol inhaler 2 puff inhalation Q4H PRN (Reason: Cough) (DME) FreeStyle Neville 14 Day Sensor Kit See Rx Instructions topical Q2W Qty: 1 Rx Instructions: As directed docusate sodium 100 mg capsule 100 mg PO BID Rx Instructions: HOLD FOR LOOSE STOOLS Referrals: Guido Burch III, MD [Primary Care Provider] - 2 days Stand Alone Forms: Work/School Release
--- NOTE | 2023-07-29 18:11 | ECG_ITS ---
Test Reason : FALL Blood Pressure : / mmHG Vent. Rate : 073 BPM Atrial Rate : 073 BPM P-R Int : 184 ms QRS Dur : 080 ms QT Int : 420 ms P-R-T Axes : 076 -08 070 degrees QTc Int : 462 ms Normal sinus rhythm Inferior infarct (cited on or before 30-AUG-2021) Abnormal ECG When compared with ECG of 11-JUL-2023 15:18, T wave inversion less evident in Lateral leads Referred By: Cristina Jorgensen Electronically Signed By:Yayo Barba
[2023-07-29 18:17] LABS: Glucose, Whole Blood 416 mg/dL (60-115)
[2023-07-29] MEDS: 0.9 % Sodium Chloride 1,000 ML 999 ML IV ×2 (18:35→20:23)
[2023-07-29] MEDS: ondansetron HCL 4 MG/2 ML VIAL IVPUSH (18:37)
[2023-07-29] MEDS: Morphine Sulfate 4 MG/ML CARTRIDGE IVPUSH (18:37)
[2023-07-29 18:40] LABS: MANUAL DIFF FLAG NO
[2023-07-29 18:41] LABS: Basophils Absolute Auto 0.1 X10*3/uL (0.0-0.2); Basophils Percent Auto 0.6 % (0-2); Eosinophils Absolute Auto 0.2 X10*3/uL (0.0-0.4); Eosinophils Percent Auto 2.7 % (0-4); Hematocrit 30.8 % (42.0-52.0); Hemoglobin 10.2 g/dl (14.0-18.0); Imm Gran Abs Auto 0.02 X10*3/uL (0.00-0.03); Imm Gran Pct Auto 0.2 % (0.0-0.4); Mean Corpuscular HGB Conc 33.1 g/dl (31.0-36.0); Mean Corpuscular Hemoglobin 28.6 pg (27.0-33.0); Mean Corpuscular Volume 86.3 fL (80.0-98.0); Mean Platelet Volume 10.6 fL (9.4-12.4); Monocytes Absolute Auto 0.5 X10*3/uL (0.1-1.2); Monocytes Percent Auto 6.1 % (2-11); Neutrophils Absolute Auto 6.1 x10*3/uL (2.0-8.3); Neutrophils Percent Auto 68.4 % (45-73); Platelet Count 266 X10*3/uL (160-400); Red Blood Count 3.57 X10*6/uL (4.60-5.80); Red Cell Distribution Width 13.1 % (11.0-16.0); White Blood Count 8.9 X10*3/uL (4.8-10.8)
[2023-07-29 18:53] LABS: COVID-19 Test Negative (Negative); IDNOW Serial# 6674DD1D
[2023-07-29 18:59] LABS: Alanine Aminotransferase 16 U/L (0-40); Albumin Level 4.2 g/dL (3.5-5.0); Alkaline Phosphatase 49 U/L (39-117); Anion Gap 16 (12-20); Aspartate Amino Transferase 20 U/L (5-37); Bilirubin Total 0.3 mg/dL (0.0-1.0); Blood Urea Nitrogen 24 mg/dL (9-16); Calcium 9.7 mg/dL (8.4-10.2); Carbon Dioxide 24 mmol/L (22-29); Chloride 103 mmol/L (96-108); Creatinine Clr Calc Pharmacy 49.6; Estimated Glomerular Filt Rate 39; Glucose Random 430 mg/dL (60-115); Magnesium 1.8 mg/dL (1.6-2.6); Potassium 4.8 mmol/L (3.3-5.1); Sodium 138 mmol/L (135-145); Total Protein 7.4 g/dL (6.5-8.0)
[2023-07-29 19:03] LABS: Troponin-I High Sensitivity 5.3 ng/L (<3.5-35.0)
[2023-07-29 19:06] LABS: IDNOW Serial# 58CA691E; Influenza A Negative (Negative); Influenza B2 Negative (Negative)
[2023-07-29 20:01] VITALS: BP 157/77; PULSE 79; RESP 12; O2SAT 96
[2023-07-29] MEDS: Metoclopramide HCl 10 MG/2 ML VIAL IVPUSH (20:06)
[2023-07-29] MEDS: HYDROmorphone HCl 1 MG/ML SYRINGE IVPUSH (20:23)
[2023-07-29 20:25] LABS: Appearance Urine Clear; Color Urine Yellow; Glucose Urine UA >=1000 mg/dL (Negative); Leukocyte Esterase Urine Negative (Negative); Nitrite Urine Negative (Negative); PH 6.5 (5.0-9.0); Specific Gravity - Urine 1.025 (1.005-1.025); UMIC TRIGGER UACC YES; Urine Blood Negative (Negative); Urine Ketones Negative (Negative); Urine Protein Negative (Neg-Trace)
[2023-07-29 20:30] LABS: Bacteria Urine None Seen (None Seen); Hyaline Casts Urine 0-2 /LPF (0-2); RBC Urine 0-2 /HPF (0-2); Squamous Epithelial Cell Urine 0-2 /HPF (0-2); WBC Urine 0-5 /HPF (0-5)
--- NOTE | 2023-07-29 21:12 | MHC.CM.ED ---
CM met with patient at the request of Cristina DOTY. Pt is known to CM. disk and tape machine tender used. Medical record reviewed. [place] [facility] [place] and discharged to [facility] on 05/31/23. Pt states he stayed at [facility] for 1 month. Then was homeless, staying with friends from the [facility]. States he can no longer stay with friend, as they have a new landlord. Pt is not forth coming about situation. Pt did call friend about some housing information while speaking with CM. Friend/contact Kate Jatin([phone]). Pt has walking stick with him. States his walker and medications are with her. 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 Pt states he met with the director of social work for housing today. States they called the [facility] respite in [facility] ([phone]) this afternoon and patient thinks they have beds there. Called [facility] in [facility]. They tell CM they received a call this afternoon, but that this patient has a porter sample case at the [facility] ([phone]). Pt is telling CM that he has fallen 5 times since he left rehab. Provider aware. PT ordered for am. Pt would like to go back to [facility]. Will place referral. CM explained to patient that he needs to find more permanent housing. Encouraged to contact [facility], to complete the paper work for section 8 housing and given list of shelters and [facility] CARES pamphlet. Pt is aware that he will stay overnight. Referral made to [facility]. CM will follow for discharge planning.
--- NOTE | 2023-07-29 22:34 | PHA.MEDREC ---
Pharmacy Consult ? Medication Reconciliation Pharmacy has completed the medication reconciliation. Confirmed patient medications with help of tool grinder set up operator gear, list from last Dr's visit 07/21/2023, and claim history Gloria Fragoso CPhT
[2023-07-30 00:52] VITALS: BP 126/87; PULSE 92; RESP 16; O2SAT 95
--- NOTE | 2023-07-30 01:21 | PC.NURSE ---
report given to MAURICIO Smith in overflow unit
[2023-07-30] MEDS: oxyCODONE HCl Immed Release 5 MG TABLET 10 MG PO ×3 (04:01→16:32)
[2023-07-30] MEDS: Acetaminophen 325 MG TABLET 650 MG PO (04:01)
[2023-07-30 04:09] LABS: Glucose, Whole Blood 110 mg/dL (60-115)
--- NOTE | 2023-07-30 05:40 | PC.NURSE ---
Assumed care of patient. Transfer from main ED.Accompanied with belongings. Patient c/o neck and back pain . Medicated with Oxycodone and Tylenol with good effect. Patient sleeping at present. Bed alarm on for safety, call lin within reach.
[2023-07-30 05:50] VITALS: BP 118/68; PULSE 59; RESP 16; TEMP 36.3; O2SAT 97
[2023-07-30 07:15] LABS: Glucose, Whole Blood 98 mg/dL (60-115)
[2023-07-30] MEDS: DULoxetine HCl 20 MG CAPSULE.DR 40 MG PO (07:56)
[2023-07-30] MEDS: Sertraline HCL 100 MG TABLET 125 MG PO (07:56)
[2023-07-30] MEDS: Calcium + Vitamin D 250 MG TABLET PO (07:56)
[2023-07-30] MEDS: Multivitamin TABLET 1 TAB PO (07:56)
[2023-07-30] MEDS: Clopidogrel Bisulfate 75 MG TABLET PO (07:56)
[2023-07-30] MEDS: Docusate Sodium 100 MG CAPSULE PO (07:57)
[2023-07-30 08:36] VITALS: BP 124/75; PULSE 69; RESP 16; TEMP 36.6; O2SAT 98
[2023-07-30] MEDS: carvediloL 12.5 MG TABLET PO (09:24)
[2023-07-30] MEDS: valACYclovir HCL 500 MG TABLET PO (09:24)
[2023-07-30] MEDS: Aspirin Enteric Coated 81 MG TABLET.DR PO (09:28)
[2023-07-30] MEDS: Fenofibrate 160 MG TABLET PO (09:28)
[2023-07-30 11:25] LABS: Glucose, Whole Blood 210 mg/dL (60-115)
[2023-07-30] MEDS: Insulin Lispro 100 UNIT/ML 3 ML VIAL SUBCUT (11:44)
[2023-07-30 12:35] VITALS: BP 124/75; PULSE 69; O2SAT 98
--- NOTE | 2023-07-30 13:53 | MHC.CM.ED ---
Pt has been accepted to [facility] for a transfer time of 4pm today. Mathew CONWAYS to transport. Pt and ED care team aware and in agreement with plan. environmental scientist used to relay information.
[2023-07-30 13:56] VITALS: BP 117/63; PULSE 59; RESP 16; TEMP 36; O2SAT 95
[2023-07-30 16:31] LABS: Glucose, Whole Blood 141 mg/dL (60-115)
--- NOTE | 2023-07-30 17:14 | PC.NURSE ---
Pt d/c to [facility] at ~1700. IV removed with catheter tip intact. Discharge instructions given to EMS personnel. Attempted to call report to [facility] x3 with no response
== END 2023-07-30 17:09 | disposition other institution (70) ==
PROVIDERS: Physician Assistant Medical; Emergency Provider Emergency Medicine Emergency Medical Services; PCP Internal Medicine
DX: R51.9 Headache, unspecified (principal); R29.6 Repeated falls; Z91.81 History of falling; E11.22 Type 2 diabetes mellitus with diabetic chronic kidney disease; I13.0 Hypertensive heart and chronic kidney disease with heart failure and stage 1 through stage 4 chronic kidney disease, or unspecified chronic kidney disease; N18.9 Chronic kidney disease, unspecified; I50.9 Heart failure, unspecified; Z95.1 Presence of aortocoronary bypass graft; F17.210 Nicotine dependence, cigarettes, uncomplicated; C41.9 Malignant neoplasm of bone and articular cartilage, unspecified; Z11.52 Encounter for screening for COVID-19; Z79.899 Other long term (current) drug therapy; Z79.02 Long term (current) use of antithrombotics/antiplatelets; Z79.4 Long term (current) use of insulin; Z79.82 Long term (current) use of aspirin
CPT/HCPCS: 70450; 72125; 80053; 81001; 82947; 83735; 84484; 85025; 87502; 87635; 93005; 96361; 96374; 96375; 96376; 97161; 99285; J1170; J2270; J2405; J2765

== ENCOUNTER → 2023-07-29 18:11 | Outpatient (BNV) | payer OTHER, SELFPAY | PROVIDERS: Emergency Provider Emergency Medicine Emergency Medical Services; PCP Internal Medicine; Visit Provider Internal Medicine Cardiovascular Disease | DX: R94.31 Abnormal electrocardiogram [ECG] [EKG] (principal) | CPT/HCPCS: 93010 ==

== ENCOUNTER 2023-07-30 18:22 | Emergency (ER) | payer OTHER, SELFPAY ==
--- NOTE | 2023-07-30 18:40 | ED_ITS ---
HPI - General Adult General Chief complaint: General Medical Stated complaint: pt discharged from [facility]. 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 Patient has no complaints at this time. Patient was discharged from our facility to [facility] for short term rehab however, the facility refused him saying they had not accepted him. Related Data Home Medications Medication Instructions Recorded Confirmed albuterol sulfate 90 mcg/actuation 2 puff inhalation Q4H PRN Cough 04/25/20 07/30/23 aerosol inhaler clopidogrel 75 mg tablet 75 mg PO DAILY 04/25/20 07/30/23 pen needle, diabetic 31 gauge x 02/04/21 07/30/23 5/16 (BD Ultra-Fine Short Pen Needle) sertraline 100 mg tablet 100 mg PO DAILY 05/25/21 07/30/23 flash glucose sensor (FreeStyle #1 ea 11/06/21 07/30/23 Neville 14 Day Sensor kit) docusate sodium 100 mg capsule 100 mg PO BID 03/29/22 07/30/23 torsemide 20 mg tablet 20 mg PO MOWEFR 12/10/22 07/30/23 azelastine 137 mcg (0.1 %) nasal 2 spray intranasal BID 07/29/23 07/30/23 spray aerosol insulin lispro 100 unit/mL 10 - 18 unit subcut TID 07/29/23 07/30/23 subcutaneous pen (Humalog KwikPen (U-100) Insulin) nicotine 7 mg/24 hr daily 7 mg transdermal Q24H PRN Smoking 07/29/23 07/30/23 transdermal patch Cessation oxycodone 10 mg tablet 10 mg PO TID PRN Pain 07/29/23 07/30/23 sertraline 25 mg tablet 25 mg PO DAILY 07/29/23 07/30/23 valacyclovir 500 mg tablet 500 mg PO DAILY 07/29/23 07/30/23 vitamin B complex 1 cap PO DAILY 07/29/23 07/30/23 Previous Rx's Medication Instructions Recorded amitriptyline 25 mg tablet 25 mg PO BEDTIME #30 tabs 02/25/22 atorvastatin 80 mg tablet 80 mg PO BEDTIME #90 tabs 03/03/23 calcium carbonate 500 mg-vitamin 1 tab PO DAILY #90 tabs 04/12/23 D3 10 mcg (400 unit) tablet (Calcium 500 + D) aspirin 81 mg tablet,delayed 81 mg PO DAILY #90 tabs 07/11/23 release carvedilol 12.5 mg tablet 12.5 mg PO BID #60 tabs 07/11/23 duloxetine 40 mg capsule,delayed 40 mg PO BID #180 caps 07/11/23 release fenofibrate nanocrystallized 145 145 mg PO DAILY #90 tabs 07/11/23 mg tablet flash glucose sensor (FreeStyle #1 ea 07/11/23 Neville 14 Day Sensor kit) insulin glargine 100 unit/mL (3 40 unit (0.4 mL) subcut QAM #15 mL 07/11/23 mL) subcutaneous pen (Lantus Solostar U-100 Insulin) pantoprazole 40 mg tablet,delayed 40 mg PO DAILY #90 tabs 07/11/23 release walker (Ultra-Light Rollator misc) #1 ea 07/18/23 Allergies Allergy/AdvReac Type Severity Reaction Status Date / Time egg [EGG] Allergy Severe NAUSEA, Verified 07/29/23 18:10 ITCHY THROAT meperidine [From DEMEROL] Allergy Unknown AGITATION Verified 07/29/23 18:10 Review of Systems 2 Constitutional: Constitutional: Reports no additional constitutional complaints, Denies chills, Denies fever(s) and Denies night sweats Eyes: Eyes: Reports no additional eye complaints, Denies blurry vision, Denies change in vision, Denies diplopia, Denies eye discharge, Denies loss of vision and Denies eye pain ENT: Denies dizziness Cardiovascular: Cardiovascular: Reports no additional cardiovascular comp laints, Denies chest pain, Denies lightheadedness, Denies Loss of Consciousness and Denies dyspnea Respiratory: Respiratory: Reports no additional respiratory complaints and Denies dyspnea Gastrointestinal: Gastrointestinal: Reports no additional gastrointestinal complaints, Denies abdominal pain, Denies melena, Denies hematochezia, Denies change in bowel habits and Denies change in stool character Genitourinary: Genitourinary: Reports no additional male genitourinary complaints, Denies hematuria, Denies oliguria, Denies difficulty urinating, Denies dysuria, Denies urinary frequency, Denies urinary hesitancy, Denies urinary incontinence and Denies urinary urgency Musculoskeletal: Musculoskeletal: Reports no additional musculoskeletal complaints, Denies numbness and Denies tingling Neurologic: Denies dizziness, Denies loss of vision, Denies numbness and Denies tingling Psychiatric: Psychiatric: Reports no additional psychiatric complaints Endocrine: Endocrine: Reports no additional endocrine complaints Hematologic/Lymphatic: Hematologic/Lymphatic: Reports no additional hematologic/lymphatic complaints Allergic/Immunologic: Allergic/Immunologic: Reports no additional allergic/immunologic complaints [facility] Past Medical History Attestation statement: The following information was validated with the patient. Source: old records reviewed and nursing notes reviewed Medical History Back pain Bladder pain Multiple myeloma CVA (cerebral vascular accident) Multiple myeloma CKD (chronic kidney disease) Chronic systolic CHF (congestive heart failure) Monoclonal gammopathy ICD (implantable cardioverter-defibrillator) in place Ischemic cardiomyopathy Diabetes mellitus CAD (coronary artery disease) HLD (hyperlipidemia) HTN (hypertension) Surgical History Hx of cardiac cath (~2017) S/P CABG x 2 (~02/2019) Family History Family History Father Esophageal cancer Diabetes mellitus Mother Diabetes mellitus Brother Diabetes mellitus Sister Diabetes mellitus Cervical cancer Social History Social History Household Members: Spouse and Children Housing: House Are you a primary healthcare or medical to a significant other at home: No Do you presently have visiting nurse or other home services: No Alcohol intake: current Alcohol intake frequency: does not drink Alcohol type: hard liquor Comment: low fall risk Patient Tobacco Use Status: Current everyday Tobacco user Smoking Start Date: 03/23/21 Tobacco use type: Cigarette Smoked in Last 30 Days: No Use of substances other than those prescribed or required for medical reasons: No Substance Use Type: Caffiene Substance Use Frequency Other:: Pt reports one month no use of any substances. Any prior treatment program specific to substance use: No Advance Directives: Yes Advance Directives on File: Yes Advance Directives Date on File: 08/31/21 service: No Current occupational status: disabled Physical Exam ED Vital Signs: Vital Signs - 24 hr 07/30/23 18:41 07/30/23 19:13 07/30/23 20:00 Temperature 98.2 F 98.4 F 98.6 F Pulse Rate 69 78 63 Respiratory Rate 16 16 20 Blood Pressure 147/71 H 132/75 135/71 Pulse Oximetry 98 97 97 Oxygen Delivery Method Room Air Room Air Room Air 07/30/23 21:57 Temperature 98.1 F Pulse Rate 65 Respiratory Rate 16 Blood Pressure 118/65 Pulse Oximetry 98 Oxygen Delivery Method Room Air BMI result Body Mass Index 28.7 Const General: cooperative, no acute distress, alert and awake Nutritional Appearance: well nourished Orientation/consciousness: patient oriented x3 Limitations: no limitations HENMT Head: Yes normal to inspection and Yes atraumatic Ears: hearing grossly normal bilaterally and external ears normal General nose exam: Normal external nose present, no nasal discharge noted and no epistaxis Face and sinus: Yes normal facial exam, No abrasion and No laceration Mouth: Normal oral and palatal mucosa present, no drooling and no muffled voice Eyes General: appearance normal, both eyes and all related structures Periorbital: periorbital findings normal Eyelids: Yes eyelids normal Conjunctivae: conjunctivae normal Pupils: Equal, round and reactive pupils present EOM: EOMs intact bilaterally Neck Neck: Yes normal visual inspection, Yes full ROM and Yes no lymphadenopathy Chest Chest palpation & inspection: normal inspection of the chest Resp Effort & Inspection: normal respiratory effort and able to speak in complete sentences GI Inspection: Yes normal to inspection Neuro General: patient oriented x3 and moves all extremities Cranial nerves: Yes Equal, round and reactive pupils present Cognition (Neuro): normal cognition Motor exam (neuro): 5/5 motor strength present throughout Sensory Exam: Normal double simultaneous stimulation for sensation Coordination: [id number] test normal Extrem General: Yes normal to inspection, Yes full ROM and Yes capillary refill normal Psych Appearance: grossly normal Mental Status: mental status grossly normal Affect: normal affect Attitude: cooperative Thought process: Normal thought process present Thought content: Normal thought content present Insight: Good insight present (Psych) Medications Administered Generic Name Dose Route Start Last Admin Trade Name Freq PRN Reason Stop Dose Admin Oxycodone HCl 10 mg 07/30/23 22:55 07/30/23 23:44 Oxycodone Hcl Immed Release 5 Mg Tablet PO 10 mg TID PRN Administration Pain, Mild (Pain Scale 1-3) Medical Decision Making Medical Decision Making [facility] Narrative: Patient is a 48 year old assigned male at with a history of DM, bone cancer, and frequent falls presenting to the emergency department today with no complaints. Patient's physical exam was unremarkable. Patient to await discharge back to [facility]. Differential Diagnosis Differential Diagnoses: The differential diagnosis associated with the presentation includes STR placement Lab Data [facility] Lab Attestation statement: I reviewed the patient's lab results. Labs: Lab Results 07/30/23 Range/Units 19:17 POC Glucose 193 H (60-115) mg/dL Independent Historian Clinical information obtained from an independent historian. History obtained from or confirmed by: EMS (EMS provided additional history and confirmed the history provided by the patient.) Discharge Plan Discharge Clinical Impression: Falls frequently Patient Disposition: Still a Patient Prescriptions: No Action atorvastatin 80 mg tablet 80 mg PO BEDTIME Qty: 90 0RF sertraline 100 mg tablet 100 mg PO DAILY Rx Instructions: one 25 mg tab + one 100 mg tab = 125 mg daily dose calcium carbonate-vitamin D3 [Calcium 500 + D] 500 mg-10 mcg (400 unit) Tablet 1 tab PO DAILY Qty: 90 7RF (DME) Ultra-Light Rollator Misc Qty: 1 0RF Rx Instructions: As Directed (DME) pen needle, diabetic [BD Ultra-Fine Short Pen Needle] 31 gauge x 5/16 needle subcut QID amitriptyline 25 mg Tablet 25 mg PO BEDTIME Qty: 30 0RF torsemide 20 mg tablet 20 mg PO MOWEFR azelastine 137 mcg (0.1 %) aerosol,spray 2 spray intranasal BID valacyclovir 500 mg Tablet 500 mg PO DAILY sertraline 25 mg Tablet 25 mg PO DAILY vitamin B complex Capsule 1 cap PO DAILY nicotine 7 mg/24 hr Patch 24 Hour 7 mg transdermal Q24H PRN (Reason: Smoking Cessation) oxycodone 10 mg Tablet 10 mg PO TID PRN (Reason: Pain) insulin lispro [Humalog KwikPen Insulin] 100 unit/mL insulin pen 10 - 18 unit subcut TID Rx Instructions: According to sliding scale aspirin 81 mg tablet,delayed release (DR/EC) 81 mg PO DAILY Qty: 90 0RF duloxetine 40 mg capsule,delayed release(DR/EC) 40 mg PO BID Qty: 180 0RF fenofibrate nanocrystallized 145 mg tablet 145 mg PO DAILY Qty: 90 0RF pantoprazole 40 mg tablet,delayed release (DR/EC) 40 mg PO DAILY Qty: 90 0RF insulin glargine [Lantus Solostar U-100 Insulin] 100 unit/mL (3 mL) insulin pen 40 unit subcut QAM Qty: 15 3RF carvedilol 12.5 mg tablet 12.5 mg PO BID Qty: 60 0RF Rx Instructions: must administer with a meal/food (DME) FreeStyle Neville 14 Day Sensor Kit See Rx Instructions .Route Qty: 1 0RF Rx Instructions: As directed clopidogrel 75 mg tablet 75 mg PO DAILY albuterol sulfate 90 mcg/actuation HFA aerosol inhaler 2 puff inhalation Q4H PRN (Reason: Cough) (DME) FreeStyle Neville 14 Day Sensor Kit See Rx Instructions topical Q2W Qty: 1 Rx Instructions: As directed docusate sodium 100 mg capsule 100 mg PO BID Rx Instructions: HOLD FOR LOOSE STOOLS
[2023-07-30 18:41] VITALS: BP 147/71; PULSE 69; RESP 16; TEMP 36.8; O2SAT 98; BMI 28.7
[2023-07-30 19:13] VITALS: BP 132/75; PULSE 78; RESP 16; TEMP 36.9; O2SAT 97
--- NOTE | 2023-07-30 19:19 | MHC.EDTECH ---
Patient was change into hospital attire ,vitals taken blood sugar check and Patient belonging list done .
[2023-07-30 19:24] LABS: Glucose, Whole Blood 193 mg/dL (60-115)
--- NOTE | 2023-07-30 19:46 | PC.NURSE ---
Report given to RN in overflow, pt will be moved to overflow 4
[2023-07-30 20:00] VITALS: BP 135/71; PULSE 63; RESP 20; TEMP 37; O2SAT 97
[2023-07-30 21:57] VITALS: BP 118/65; PULSE 65; RESP 16; TEMP 36.7; O2SAT 98
[2023-07-30] MEDS: oxyCODONE HCl Immed Release 5 MG TABLET 10 MG PO (23:44)
--- NOTE | 2023-07-30 23:52 | PC.NURSE ---
Patient medicated with Oxycodone 10 mg PO for c/o 10/10 back pain.
[2023-07-31 06:00] VITALS: BP 111/66; PULSE 68; RESP 18; TEMP 36.7; O2SAT 96
--- NOTE | 2023-07-31 06:21 | MHC.EDTECH ---
Patient awake ,vitals taken ,1000 ml urine empty from urinal .
[2023-07-31 07:57] LABS: Glucose, Whole Blood 168 mg/dL (60-115)
[2023-07-31] MEDS: Clopidogrel Bisulfate 75 MG TABLET PO (08:05)
[2023-07-31] MEDS: Insulin Glargine,Hum.rec.anlog 100 UNIT/ML 10 ML VIAL 40 UNIT SUBCUT (08:05)
[2023-07-31] MEDS: Aspirin Enteric Coated 81 MG TABLET.DR PO (08:05)
[2023-07-31] MEDS: Omeprazole 20 MG CAPSULE.DR PO (08:05)
[2023-07-31] MEDS: Fenofibrate 160 MG TABLET PO (08:05)
[2023-07-31] MEDS: Sertraline HCL 100 MG TABLET PO (08:05)
[2023-07-31] MEDS: DULoxetine HCl 20 MG CAPSULE.DR 40 MG PO (08:05)
[2023-07-31] MEDS: Multivitamin TABLET 1 TAB PO (08:05)
[2023-07-31] MEDS: Docusate Sodium 100 MG CAPSULE PO (08:05)
[2023-07-31] MEDS: Calcium + Vitamin D 250 MG TABLET 500 MG PO (08:05)
[2023-07-31] MEDS: Azelastine HCl Nasal 137 MCG/Spray 30 ML 2 SPRAY NOSTRIL-B (08:08)
--- NOTE | 2023-07-31 08:08 | MHC.CM.ED ---
Received consult for assessment of d/c needs: [facility] Liasiaon confirmed time and gave phone number for RN to RN report. [facility] [place] contact x 2 - no answer. Pt arrived at [facility] where nursing staff stated they were not aware of pt arrival and had no information or chart available. Pt returned [place] [facility] [facility] [place]. ED CM placed a call on 07/31 at 0800 to RN supervisor motor vehicle assembly Eloisa who apologized stating that she had already left for the day and couldn't assemble the pt's chart/information sent over by [employer]. She noted the communication error and agreed to be present in the building today, 07/31 at 11am in anticipation of pt arrival. Mathew S re-booked, pt and ED care team aware and in agreement of revised d/c plan. railroad crane operator used w/patient communication.
[2023-07-31] MEDS: oxyCODONE HCl Immed Release 5 MG TABLET 10 MG PO (08:10)
[2023-07-31] MEDS: valACYclovir HCL 500 MG TABLET PO (08:51)
[2023-07-31] MEDS: Sertraline HCL 25 MG TABLET PO (08:51)
[2023-07-31] MEDS: carvediloL 12.5 MG TABLET PO (08:52)
--- NOTE | 2023-07-31 10:16 | PC.NURSE ---
Addendum entered by Chip Ballesteros RN 07/31/23 10:50: Pt d/c at 1050 Original Note: Report given to MAURICIO Alvarado at [facility] at 1015am
== END 2023-07-31 10:51 | disposition home or self-care (01) ==
PROVIDERS: Emergency Provider Emergency Medicine
DX: R29.6 Repeated falls (principal); E11.9 Type 2 diabetes mellitus without complications; I10 Essential (primary) hypertension; E78.5 Hyperlipidemia, unspecified; C41.9 Malignant neoplasm of bone and articular cartilage, unspecified; F17.210 Nicotine dependence, cigarettes, uncomplicated; Z79.4 Long term (current) use of insulin; Z79.02 Long term (current) use of antithrombotics/antiplatelets; Z79.899 Other long term (current) drug therapy
CPT/HCPCS: 82947; 99284; 99285

== ENCOUNTER → 2023-07-31 23:59 | Outpatient (BNV) | payer OTHER, SELFPAY ==
--- NOTE | 2023-08-01 16:51 | A.OFFVIS_ITS ---
Intake Intake Visit Reasons: Remote ICD Check- Raidarrr Allergies egg [EGG] Allergy (Severe, Verified 07/29/23 18:10) NAUSEA, ITCHY THROAT meperidine [From DEMEROL] Allergy (Unknown, Verified 07/29/23 18:10) AGITATION PFSH Medical History Back pain Bladder pain Multiple myeloma CVA (cerebral vascular accident) Multiple myeloma CKD (chronic kidney disease) Chronic systolic CHF (congestive heart failure) Monoclonal gammopathy ICD (implantable cardioverter-defibrillator) in place Ischemic cardiomyopathy Diabetes mellitus CAD (coronary artery disease) HLD (hyperlipidemia) HTN (hypertension) Surgical History Hx of cardiac cath (~2017) S/P CABG x 2 (~02/2019) Family History Father Esophageal cancer Diabetes mellitus Mother Diabetes mellitus Brother Diabetes mellitus Sister Diabetes mellitus Cervical cancer Social History Household Members: Spouse and Children Housing: House Are you a primary landcare officer to a significant other at home: No Do you presently have visiting nurse or other home services: No Alcohol intake: current Alcohol intake frequency: does not drink Alcohol type: hard liquor Comment: low fall risk Patient Tobacco Use Status: Current everyday Tobacco user Smoking Start Date: 03/23/21 Tobacco use type: Cigarette Smoked in Last 30 Days: No Use of substances other than those prescribed or required for medical reasons: No Substance Use Type: Caffiene Substance Use Frequency Other:: Pt reports one month no use of any substances. Any prior treatment program specific to substance use: No Advance Directives: Yes Advance Directives on File: Yes Advance Directives Date on File: 08/31/21 service: No Current occupational status: disabled Office Procedures Cardiac Device Check Cardiac Device Check Details: Remote ICD report generated 07/31/2023. ICD function is adequate. Sensing c onfiguration is okay. Battery life is 58% [id number] Cardiac Interrogation, implant defibrillator w/interim Procedure code (CPT) selection complete Assessment & Plan Assessment & Plan (1) ICD (implantable cardioverter-defibrillator) in place: Comment: Raidarrr Code(s): Z95.810 - Presence of automatic (implantable) cardiac defibrillator Plan: See above Coding Level of Care Code Procedure Only Diagnoses ICD (implantable cardioverter-defibrillator) in place Z95.810 CPT Codes Cardiac Device Check - Cardiac Device 13: [id number] Cardiac Interrogation, implant defibrillator w/interim ([id number])
== END ==
PROVIDERS: Visit Provider Internal Medicine Cardiovascular Disease
DX: I25.5 Ischemic cardiomyopathy (principal); Z95.810 Presence of automatic (implantable) cardiac defibrillator
CPT/HCPCS: 93295

== ENCOUNTER → 2023-10-05 10:45 | Outpatient (REF) | payer OTHER, SELFPAY ==
--- NOTE | 2023-10-05 10:48 | CA_ITS ---
Transthoracic Echocardiogram Patient (Last, First, Middle): Pérez Serrano, Gender: Male Date of : 1975 Age: 48 Procedure Date: 10/05/2023 Procedure Type: Transthoracic Echocardiogram Location: OP Height: 170.18 cm Weight: 72.58 kg BSA: 1.84 m2 Heart Rate: 68 bpm BP: 148 / 72 mmHg Acid Loader: LUIS Referring MD: Rodo Hernandez MD Log Roper: Rodo Hernandez MD Symptoms: I50.22 - Chronic systolic (congestive) heart failure Study Quality: Fair ECG Rhythm: Sinus Conclusions: - 1. [id number]-[id number] LV systolic dysfunction with grade 2 diastolic dysfunction with underlying regional wall motion abnormality consistent with ischemic cardiomyopathy 2. Mild mitral regurgitation 3. Cmvj-fu-qifpwkpm elevation of right ventricular systolic pressure with mildly elevated right atrial pressures 4. No gross pericardial effusion Findings Left Ventricle The left ventricular systolic function is mild to moderately decreased. The visually estimated ejection fraction is between 40-45%. Spectral Doppler is indicative of a pseudonormal filling pattern. E/E prime ratio is >15, consistent with elevated filling pressures. Evidence suggests grade II (moderate) diastolic dysfunction. Wall Motion Rest Echo Findings The apical inferior and apical septum segments are hypokinetic. The inferoseptal wall, inferolateral wall, the basal inferior, and mid inferior segments are akinetic. All other scored wall segments showed normal motion. Right Ventricle Normal right ventricular cavity size and systolic function. Atria Both atria are normal in size. There is no evidence of interatrial shunt. Aortic Valve Normal aortic valve structure and function. There is no aortic valve stenosis. There is no aortic valve regurgitation. Mitral Valve There is mild anterior and posterior mitral leaflet thickening. There is mild mitral valve regurgitation. There is no mitral valve stenosis. Pulmonic Valve The pulmonic valve is likely normal. Tricuspid Valve Normal tricuspid valve structure. There is mild tricuspid valve regurgitation. Mildly elevated right atrial pressure. Mild to moderate pulmonary hypertension is present. Great Vessels The pulmonary artery was not well visualized. There is no dilatation of the ascending aorta measuring 3.10 cm. Venous The inferior vena cava is normal in size and collapses greater than 50% with inspiration. Pericardium/Pleural There is no evidence of pericardial effusion. Prior Study Comparison Changes noted compared to prior study dated: 10/13/2020. LV systolic function is marginally improved Measurements 2D Linear Measurements IVSd: 0.87 0.6-0.9/0.6-1.0 cm LVIDd: 5.27 3.9-5.3/4.2-5.9 cm LVIDd Index: 2.86 2.4-3.2/2.2-3.1 cm/m2 LVIDs: 4.52 2.0-3.6 cm LVPWd: 0.60 0.7-1.1 cm LA Diam: 4.30 2.7-3.8/3.0-4.0 cm LAIDs Index: 2.34 1.5-2.3 cm/m2 LV Mass: 167.06 67-162/88-224 g LV Mass Index: 90.79 43-95/49-115 g/m2 LVOT Diam: 2.00 3.0+(-)1.3 cm 2D Systolic Function EF 4C: 39.10 >55% EF 2C: 44.10 >55% EF BiP: 42.10 >55% Mitral Valve MV Pk E: 1.14 MV PK A: 0.40 MV Decel Time: 201.00 E/A: 2.90 E'Lateral: 6.85 E'Medial: 5.00 E/E' Med: 22.80 E/E' Lat: 16.60 PHT: 59.00 MVA PHT: 3.73 Decel Parker: 5.64 Aortic Valve AoV Pk Teja: 1.13 AoV Pk Grad: 5.00 RADHA: 2.50 LVOT LVOT Pk Teja: 0.91 LVOT Mn Teja: 0.57 LVOT VTI: 0.18 LVOT Pk Grad: 3.00 LVOT Mn Grad: 2.00 LVOT Diam: 2.00 LVOT Area: 3.14 Diastolic Function MV Pk E: 1.14 MV Pk A: 0.40 E/A: 2.90 E'Medial: 5.00 E/E' Med: 22.80 E' Laterial: 6.85 E/E' Lat: 16.60 Right Ventricle TAPSE (mm): 16.80 Tricuspid Valve TR Pk Teja: 3.11 TR Pk Grad: 39.00 RA Press: 8.00 RVSP: 47.00 Great Vessels Aorta Sinus of Valsalva: 3.00 2.0-3.5 cm Ao Asc: 3.10 2.1-3.4 cm Pulmonary Veins Pulm Vein S/D 0.60 Pulmonary Valve PV Pk Teja: 0.97 Peak PV Grad: 4.00 Updated in Other Vendor System with Status of Final Rodo Hernandez MD electronically signed on 10/06/2023 11:34:16 AM with status of Final
== END ==
LOC: HO.CARD 10:45
PROVIDERS: PCP Internal Medicine; Visit Provider Internal Medicine Cardiovascular Disease
DX: I50.22 Chronic systolic (congestive) heart failure (principal)
CPT/HCPCS: 93306

== ENCOUNTER → 2023-10-05 10:48 | Outpatient (BNV) | payer OTHER, SELFPAY | PROVIDERS: PCP Internal Medicine; Visit Provider Internal Medicine Cardiovascular Disease | DX: I50.22 Chronic systolic (congestive) heart failure (principal); I34.0 Nonrheumatic mitral (valve) insufficiency | CPT/HCPCS: 93306 ==

== ENCOUNTER 2024-12-17 13:29 | Outpatient (REF) | payer OTHER, SELFPAY ==
[2024-12-17 15:53] LABS: Anion Gap 12 (12-20); Blood Urea Nitrogen 17 mg/dL (9-16); Calcium 9.6 mg/dL (8.4-10.2); Carbon Dioxide 31 mmol/L (22-29); Chloride 96 mmol/L (96-108); Cholesterol 219 mg/dL (<200); Estimated Glomerular Filt Rate 43; Glucose Random 456 mg/dL (60-115); HDL Cholesterol 37 mg/dL (>40); LDL Cholesterol Calculated 135 mg/dL (<100); Potassium 4.6 mmol/L (3.3-5.1); Sodium 134 mmol/L (135-145); Triglycerides 239 mg/dL (<150)
== END 2024-12-17 13:30 | disposition home or self-care (01) ==
LOC: HO.LAB 13:29
PROVIDERS: PCP Internal Medicine; Visit Provider Nurse Practitioner Family
DX: I25.10 Atherosclerotic heart disease of native coronary artery without angina pectoris (principal); I13.0 Hypertensive heart and chronic kidney disease with heart failure and stage 1 through stage 4 chronic kidney disease, or unspecified chronic kidney disease; I50.22 Chronic systolic (congestive) heart failure; N18.9 Chronic kidney disease, unspecified; E78.5 Hyperlipidemia, unspecified; I25.5 Ischemic cardiomyopathy; Z95.1 Presence of aortocoronary bypass graft; Z95.810 Presence of automatic (implantable) cardiac defibrillator
CPT/HCPCS: 36415; 80048; 80061; 99212

== ENCOUNTER 2024-12-17 13:29 | Outpatient (AMB) | payer OTHER, SELFPAY ==
--- NOTE | 2024-12-17 14:00 | A.OFFVIS_ITS ---
Vital Signs 12/17/24 14:01 Height 5 ft 7 in BP 142/70 H Blood Pressure Location Rt brachial Position Sitting Pulse 67 Pulse Source Monitor Intake Visit Reasons: follow-up after Blink for iPhone and Android check Ferryboat Ticket Taker Required: No Physically Impaired Teacher: Physically Impaired Teacher Present Allergies egg [EGG] Allergy (Severe, Verified 12/17/24 14:02) NAUSEA, ITCHY THROAT meperidine [From DEMEROL] Allergy (Unknown, Verified 12/17/24 14:02) AGITATION Medication List - Last Reconciled 12/17/24 by PHUC Hammer albuterol sulfate 90 mcg/actuation 2 puffs inhalation Q4H PRN amitriptyline 25 mg PO BEDTIME atorvastatin 80 mg PO BEDTIME azelastine 2 sprays intranasal BID calcium carbonate-vitamin D3 500 mg-10 mcg (400 unit) (Calcium 500 + D) 1 tab PO DAILY carvedilol 12.5 mg PO BID clopidogrel 75 mg PO DAILY docusate sodium 100 mg PO BID duloxetine 40 mg PO BID fenofibrate nanocrystallized 145 mg PO DAILY flash glucose sensor (FreeStyle Neville 14 Day Sensor kit) As directed flash glucose sensor (FreeStyle Neville 14 Day Sensor kit) As directed insulin glargine (Lantus Solostar U-100 Insulin) 40 units (0.4 mL) subcut QAM insulin lispro (Humalog KwikPen (U-100) Insulin) 10 - 18 units subcut TID oxycodone 10 mg PO TID PRN pantoprazole 40 mg PO DAILY pen needle, diabetic (BD Ultra-Fine Short Pen Needle) sertraline 100 mg PO DAILY sertraline 25 mg PO DAILY torsemide 20 mg PO MOWEFR valacyclovir 500 mg PO DAILY vitamin B complex 1 cap PO DAILY walker (Ultra-Light Rollator misc) As Directed HPI HPI follow-up after Blink for iPhone and Android check: Details: Pérez is a 49-year-old male past medical history of hypertension, hyperlipidemia, diabetes, CAD status post 2 vessel coronary artery bypass grafting, ischemic cardiomyopathy, subcutaneous ICD, chronic systolic heart failure, chronic kidney disease, multiple myeloma who presents for follow-up. His last prior visit to our office was 07/28/2023. Today he reports that he moved out near [place] and will eventually be getting doctors out in that area. For the time being he will continue with his doctors in this area. He says he has not been taking his medications recently. He had been in a medical rehab and was discharged early November. He has not had medications since that time. He is here today with his [employer]. He had recently saw his PCP and was instructed to restarted on diabetic medications. No exe rtional chest discomfort. Denies shortness of breath, PND, orthopnea or edema. No lightheadedness, presyncope, syncope, falls. He admits to being sedentary and ambulates with a walking stick. He is not undergoing treatment for his multiple myeloma at this time. He tells me that he stopped as he is now living further away. [facility] Medical History Back pain Bladder pain Multiple myeloma CVA (cerebral vascular accident) Multiple myeloma CKD (chronic kidney disease) Chronic systolic CHF (congestive heart failure) Monoclonal gammopathy ICD (implantable cardioverter-defibrillator) in place Ischemic cardiomyopathy Diabetes mellitus CAD (coronary artery disease) HLD (hyperlipidemia) HTN (hypertension) Surgical History Hx of cardiac cath (~2017) S/P CABG x 2 (~02/2019) Family History Father Esophageal cancer Diabetes mellitus Mother Diabetes mellitus Brother Diabetes mellitus Sister Diabetes mellitus Cervical cancer Social History Household Members: Spouse and Children Housing: House Are you a primary care nurse rn to a significant other at home: No Do you presently have visiting nurse or other home services: No Alcohol intake: current Alcohol intake frequency: does not drink Alcohol type: hard liquor Comment: low fall risk Patient Tobacco Use Status: Current everyday Tobacco user Smoking Start Date: 03/23/21 Tobacco use type: Cigarette Substance Use Type: Marijuana and Caffiene Advance Directives Date on File: 08/31/21 service: No Current occupational status: disabled Review of Systems Const All systems reviewed & are unremarkable except as noted in HPI and below ENT Details: nose pain Denies dizziness Card Denies chest pain, Denies chest pain at rest, Denies chest pain with activity, Denies rapid heart rate, Denies pedal edema, Denies edema, Denies leg edema, Denies lightheadedness, Denies palpitations, Denies dyspnea, Reports dyspnea on exertion and Denies orthopnea Resp Denies cough, Denies dyspnea and Reports dyspnea on exertion GI Denies hematochezia and Denies change in stool character Musc Denies abnormal gait, Denies limited range of motion, Denies muscle cramps, Denies muscle weakness, Denies numbness, Denies radiating pain into limb, Denies stiffness and Denies tingling Neuro Denies abnormal gait, Denies dizziness, Denies numbness and Denies tingling Endo Denies palpitations Physical Exam Vital Signs: Last Vital Signs Pulse 67 12/17/24 14:01 BP 142/70 H 12/17/24 14:01 Office Procedures Cardiac Device Check Cardiac Device Check Details: [employer] subcutaneous ICD, battery 42% no alerts impedance 65 Ohms, shock zone 240, conditional zone 200 [id number] Device Interrogation, implantable defibrillator Procedure code (CPT) selection complete EKG Details: Today, read by me normal sinus rhythm, inferior Q-wave, rate 67, QTC 439 milliseconds [id number], Complete Assessment & Plan Assessment & Plan (1) Chronic systolic CHF (congestive heart failure): Comment: Ischemic cardiomyopathy Code(s): I50.22 - Chronic systolic (congestive) heart failure Category: Medical Plan: History of chronic systolic heart failure with no recent hospitalization for decompensation. Last echocardiogram done 10/05/2023 showing EF 40-45%, grade 2 diastolic dysfunction with regional wall motion abnormality consistent with ischemic cardiomyopathy. He has not been taking his cardiac medications recently. On exam he does not appear fluid overloaded. Will check labs today and plan restart of his cardiac meds as appropriate. Signs and symptoms of heart failure reviewed with him. The need for strict medication compliance discussed. Cardiology follow-up 6 months, sooner if needed. (2) CAD (coronary artery disease): Code(s): I25.10 - Atherosclerotic heart disease of [place] coronary artery without angina pectoris Category: Medical Plan: History CAD with RCA stents 2017 and then 2 vessel CABG 02/2019. Echo shows reduced EF and residual ischemic cardiomyopathy. No reports of anginal sounding symptoms. No signs of acute HF on exam today. Will plan to have him restart aspirin, atorvastatin, carvedilol. He is not on Mike or Arb due to chronic kidney disease. Signs and symptoms of angina discussed. (3) CKD (chronic kidney disease): Code(s): N18.9 - Chronic kidney disease, unspecified Category: Medical Plan: History of chronic kidney disease. Had been following with Nephrology. Labs 07/18/2023 showed creatinine 2.07. Will recheck BMP today. (4) S/P CABG x 2: Onset Date: ~02/2019 Comment: MALONEY to LAD, GSV to LCx OM Code(s): Z95.1 - Presence of aortocoronary bypass graft Category: Surgical Plan: As above (5) ICD (implantable cardioverter-defibrillator) in place: Comment: Sanrad Code(s): Z95.810 - Presence of automatic (implantable) cardiac defibrillator Category: Medical Plan: Sub Q ICD in place. Functioning normally on interrogation today. Has remote monitoring that is used periodically.. Next office interrogation in 6 months. (6) HTN (hypertension): Code(s): I10 - Essential (primary) hypertension Category: Medical Plan: Blood pressure goal less than 130/80. Initially elevated 142/70 however recheck done by me later in visit was 124/72. He has not been taking his carvedilol, will restart. (7) HLD (hyperlipidemia): Code(s): E78.5 - Hyperlipidemia, unspecified Category: Medical Plan: LDL goal < 70. He has not been taking atorvastatin. Will add lipids to today's labs. Will plan a restart of atorvastatin at prior dose. (8) Ischemic cardiomyopathy: Code(s): I25.5 - Ischemic cardiomyopathy Category: Medical Plan: Ischemic cardiomyopathy. Last known EF 35-40 %. Subcutaneous icd in place. Will restart Carvedilol for neurohormonal modulation. s/s HF reviewed. Plan During this visit, I engaged in detailed discussions with the patient regarding his cardiovascular status and ICD monitoring. I emphasized the importance of resuming prescribed medications for heart failure and controlling associated conditions such as hypertension and hyperlipidemia. The potential benefits of these treatments, particularly in improving cardiac function and reducing the risk of further ischemic events, were considered. We also addressed the safe use of medications given his elevated potassium and creatinine levels. The patient was informed about the necessity of regular follow-ups, especially after re- establishing healthcare contacts locally in his place of residence. We discussed the challenges posed by his recent relocation and cessation of multiple myeloma treatments, underscoring the need to integrate oncological care and monitoring into his health management. The patient was advised to seek urgent care if symptoms such as chest pain or exacerbated breathing difficulties develop. Orders: Orders Lipid Panel Today I25.10 - Atherosclerotic heart disease of [place] coronary artery without angina pectoris Basic Metabolic Panel Today I25.10 - Atherosclerotic heart disease of [place] coronary artery without angina pectoris Medications: New aspirin 81 mg PO DAILY 90 tabs 1RF Refilled atorvastatin 80 mg PO BEDTIME 90 tabs 1RF carvedilol must administer with a meal/food 12.5 mg PO BID 180 tabs 1RF Patient Instructions: - Fill your prescribed heart medications at [address] [facility], [place], [place]. - Take all heart medications as directed; do not miss doses. - Monitor blood pressure at home and report significant changes. - Watch for signs of shortness of breath, chest pain, or leg swelling. - Schedule a follow-up appointment with a local binding cementer french cord when able. - Seek medical attention if you experience chest pain or worsening symptoms. - Stay active as much as possible; consult with physical therapy if needed. Patient was informed and verbally consented to the use of an ambient scribe for clinic note documentation during this visit. Visit time spent on chart review, interview, assessment, orders, documentation. Coding Level of Care Code Est Pt Level 4 (36436) Complex EM visit Add On G2211 Diagnoses Chronic systolic CHF (congestive heart failure) I50.22 CAD (coronary artery disease) I25.10 CKD (chronic kidney disease) N18.9 S/P CABG x 2 Z95.1 ICD (implantable cardioverter-defibrillator) in place Z95.810 HTN (hypertension) I10 HLD (hyperlipidemia) E78.5 Ischemic cardiomyopathy I25.5 CPT Codes Cardiac Device Check - Cardiac Device 9: [id number] Device Interrogation, implantable defibrillator ([id number]) EKG - CPT: 76524-Cjwdppzlrodwypuvp, Complete ([id number]) Time Spent (min) 34
[2024-12-17 14:01] VITALS: BP 142/70; PULSE 67
== END 2024-12-17 14:54 | disposition home or self-care (01) ==
LOC: HO.HCS 13:30
PROVIDERS: PCP Internal Medicine; Visit Provider Nurse Practitioner Family
DX: I13.0 Hypertensive heart and chronic kidney disease with heart failure and stage 1 through stage 4 chronic kidney disease, or unspecified chronic kidney disease (principal); I50.22 Chronic systolic (congestive) heart failure; I25.810 Atherosclerosis of coronary artery bypass graft(s) without angina pectoris; N18.9 Chronic kidney disease, unspecified; Z95.1 Presence of aortocoronary bypass graft; Z95.810 Presence of automatic (implantable) cardiac defibrillator; E78.5 Hyperlipidemia, unspecified; I25.5 Ischemic cardiomyopathy
CPT/HCPCS: 93260; 99214; G2211

== ENCOUNTER 2025-06-17 12:23 | Outpatient (AMB) | payer OTHER, SELFPAY ==
--- NOTE | 2025-06-17 12:56 | A.OFFVIS_ITS ---
Vital Signs 06/17/25 12:57 Height 5 ft 7 in BP 118/72 Blood Pressure Location Rt brachial Position Sitting Pulse 96 Pulse Source Pulse Oximeter Intake Visit Reasons: 6 mth w/ [place] [facility] Underground Conduit Installer Required: Yes Underground Conduit Installer Name: voice torre [id number] Machine Repair Person: Machine Repair Person Present Allergies egg (EGG) Allergy (Severe, Verified 06/17/25 12:59) NAUSEA, ITCHY THROAT meperidine (From DEMEROL) Allergy (Unknown, Verified 06/17/25 12:59) AGITATION Medication List - Last Reconciled 06/17/25 by RONAN HammerC albuterol sulfate 90 mcg/actuation 2 puffs inhalation Q4H PRN amitriptyline 25 mg PO BEDTIME aspirin 81 mg PO DAILY atorvastatin 80 mg PO BEDTIME azelastine 2 sprays intranasal BID calcium carbonate-vitamin D3 500 mg-10 mcg (400 unit) (Calcium 500 + D) 1 tab PO DAILY carvedilol 12.5 mg PO BID docusate sodium 100 mg PO BID duloxetine 40 mg PO BID fenofibrate nanocrystallized 145 mg PO DAILY flash glucose sensor (FreeStyle [place]ille 14 Day Sensor kit) As directed flash glucose sensor (FreeStyle [place]ille 14 Day Sensor kit) As directed insulin glargine (Lantus Solostar U-100 Insulin) 40 units (0.4 mL) subcut QAM insulin lispro (Humalog KwikPen (U-100) Insulin) 10 - 18 units subcut TID oxycodone 10 mg PO TID PRN pantoprazole 40 mg PO DAILY pen needle, diabetic (BD Ultra-Fine Short Pen Needle) sertraline 100 mg PO DAILY sertraline 25 mg PO DAILY vitamin B complex 1 cap PO DAILY walker (Ultra-Light Rollator misc) As Directed HPI HPI 6 mth w/ [place] [facility]: Details: Pérez is a 50-year-old male past medical history of hypertension, hyperlipidemia, diabetes, CAD status post 2 vessel coronary artery bypass grafting, ischemic cardiomyopathy, subcutaneous ICD, chronic systolic heart failure, chronic kidney disease, multiple myeloma who presents for follow-up. Today he reports that he stills lives in the [facility] but follows with Drs in this area. He reports taking most of his medications as directed. It confirms he is taking his cardiac meds. 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 No exertional chest discomfort. He does have chronic anterior chest wall pain and tenderness that he says has been present since the time of his surgery. Denies shortness of breath, PND, orthopnea or edema. No lightheadedness, presyncope, syncope, falls. He admits to being sedentary and ambulates with a cane at present. He is limiting the weight-bearing on his right foot due to circulatory issues. He tells me his multiple myeloma is stable and is being monitored. He is not requiring treatment at this time. [facility] Medical History Back pain Bladder pain Multiple myeloma CVA (cerebral vascular accident) Multiple myeloma CKD (chronic kidney disease) Chronic systolic CHF (congestive heart failure) Monoclonal gammopathy ICD (implantable cardioverter-defibrillator) in place Ischemic cardiomyopathy Diabetes mellitus CAD (coronary artery disease) HLD (hyperlipidemia) HTN (hypertension) Surgical History Hx of cardiac cath (~2017) S/P CABG x 2 (~02/2019) Family History Father Esophageal cancer Diabetes mellitus Mother Diabetes mellitus Brother Diabetes mellitus Sister Diabetes mellitus Cervical cancer Social History Household Members: Spouse and Children Housing: House Are you a primary home health care physician to a significant other at home: No Do you presently have visiting nurse or other home services: No Alcohol intake: current Alcohol intake frequency: does not drink Alcohol type: hard liquor Comment: low fall risk Patient Tobacco Use Status: Current everyday Tobacco user Smoking Start Date: 03/23/21 Tobacco use type: Cigarette Substance Use Type: Marijuana and Caffiene Advance Directives Date on File: 08/31/21 service: No Current occupational status: disabled Review of Systems Const All systems reviewed & are unremarkable except as noted in HPI and below ENT Denies dizziness Card Reports chest pain (anterior chest wall), Denies chest pain at rest, Denies chest pain with activity, Denies rapid heart rate, Reports pedal edema (decreased blood flow right foot and great toe), Denies edema, Denies leg edema, Denies lightheadedness, Denies palpitations, Denies dyspnea, Denies dyspnea on exertion and Denies orthopnea Resp Denies cough, Denies dyspnea and Denies dyspnea on exertion GI Denies hematochezia and Denies change in stool character Musc Reports abnormal gait (using cane), Reports limited range of motion (right toes), Denies muscle cramps, Denies muscle weakness, Denies numbness, Denies radiating pain into limb, Denies stiffness and Denies tingling Neuro Reports abnormal gait (using cane), Denies dizziness, Denies numbness and Denies tingling Endo Denies palpitations Physical Exam Vital Signs: Last Vital Signs Pulse 96 06/17/25 12:57 BP 118/72 06/17/25 12:57 Const General: cooperative, healthy appearing, comfortable and no acute distress Orientation/consciousness: patient oriented x3 Neck Neck: Yes normal visual inspection Resp Effort & Inspection: normal respiratory effort Auscultation: clear to auscultation bilaterally, no crackles, no rales, no rhonchi and no wheezes Cardio Jugular venous distension: no JVD Rate: regular rate Rhythm: regular rhythm Heart sounds: S1 normal heart sound present, S2 normal heart sound present, no murmurs and no rubs Neuro General: patient oriented x3 Extrem Other: swelling and discoloration right great toe Psych Appearance: grossly normal Mental Status: mental status grossly normal Speech and movement: Normal speech and movement present Office Procedures Cardiac Device Check Cardiac Device Check Details: [place] scientific subcutaneous ICD interrogation today shows battery 36%, impedance 70 Ohms, no episodes, no AF, no setting changes made [id number] Device Interrogation, implantable defibrillator Procedure code (CPT) selection complete Assessment & Plan Assessment & Plan (1) Chronic systolic CHF (congestive heart failure): Comment: Ischemic cardiomyopathy Code(s): I50.22 - Chronic systolic (congestive) heart failure Category: Medical Plan: History of chronic systolic heart failure with no recent hospitalization for decompensation. Last echocardiogram done 10/05/2023 showing EF 40-45%, grade 2 diastolic dysfunction with regional wall motion abnormality consistent with ischemic cardiomyopathy. On exam he does not appear fluid overloaded. He is not requiring diuretics at present. Continue carvedilol for neurohormonal modulation. He is not on Mike or Arb due to CKD. Will update echo prior to next visit. Signs and symptoms of heart failure reviewed with him. The need for strict medication compliance discussed. Cardiology follow-up 6 months, sooner if needed. (2) CAD (coronary artery disease): Code(s): I25.10 - Atherosclerotic heart disease of [place] coronary artery without angina pectoris Category: Medical Plan: History CAD with RCA stents 2017 and then 2 vessel CABG 02/2019. Echo shows reduced EF and residual ischemic cardiomyopathy. No reports of anginal sounding symptoms. No signs of acute HF on exam today. Continue aspirin, atorvastatin, carvedilol. Signs and symptoms of angina discussed. (3) CKD (chronic kidney disease): Code(s): N18.9 - Chronic kidney disease, unspecified Category: Medical Plan: History of chronic kidney disease. Had been following with Nephrology. Labs 12/17/24 showed creatinine 1.71. (4) S/P CABG x 2: Onset Date: ~02/2019 Comment: MALONEY to LAD, GSV to LCx OM Code(s): Z95.1 - Presence of aortocoronary bypass graft Category: Surgical Plan: As above (5) ICD (implantable cardioverter-defibrillator) in place: Comment: [employer] Code(s): Z95.810 - Presence of automatic (implantable) cardiac defibrillator Category: Medical Plan: Sub Q ICD in place. Functioning normally on interrogation today. Has remote monitoring that is used periodically. Next office interrogation in 6 months. (6) HTN (hypertension): Code(s): I10 - Essential (primary) hypertension Category: Medical Plan: Blood pressure goal less than 130/80. Well controlled at present. No med changes made. (7) HLD (hyperlipidemia): Code(s): E78.5 - Hyperlipidemia, unspecified Category: Medical Plan: LDL goal < 70. Labs 12/17/2024 showed LDL 135. He had not been taking his atorvastatin or fenofibrate at that time. Meds were restarted. At present he does not believe he is taking fenofibrate. Recommend repeat fasting lipids and near future. (8) Ischemic cardiomyopathy: Code(s): I25.5 - Ischemic cardiomyopathy Category: Medical Plan: Ischemic cardiomyopathy. Last known EF 40-45 %. Subcutaneous icd in place. Continue carvedilol. Not on Mike/Arb due to CKD. Plan I explained to the patient that his chest pain, which is sore when touched, is likely chest wall soreness and not originating from his heart. I advised him to let us know if he develops chest pain with activities like walking, as that could be more concerning. I informed him that his slightly weak heart increases his risk for fluid buildup and reviewed the symptoms to watch for, such as swollen legs and worsening breathing. I emphasized the importance of taking his medications to keep his heart strong. I confirmed that his defibrillator is working well and instructed him to use his bedside monitor monthly to transmit data, with an in-office check scheduled in six months. We discussed that his other conditions, such as his foot pain and multiple myeloma, are being managed by his other doctors. I recommended he follow up with cardiology in six months, or sooner if needed. Orders: Orders CA echo transthoracic complete 5 Months I25.10 - Atherosclerotic heart disease of [place] coronary artery without angina pectoris, I50.22 - Chronic systolic (congestive) heart failure Patient Instructions: - It is very important that you take all of your heart medications as prescribed to help keep your heart strong. - Your chest pain seems to be coming from the muscles in your chest wall, not your heart. If you start to get chest pain or pressure that is different or happens with activities like walking, let us know. - Watch for signs of fluid buildup, such as swollen legs or worsening shortness of breath. If this happens, please let one of your doctors know. - Please press the button on your bedside defibrillator monitor about once a month, for example on the first day of the month, so it can send us a reading of your device. - We will plan to see you back in the cardiology clinic in six months, but call us sooner if you have any problems. Patient was informed and verbally consented to the use of an ambient scribe for clinic note documentation during this visit. Visit time spent on chart review, interview, assessment, orders, documentation. Coding Level of Care Code Est Pt Level 4 (22940) Add On Problem Visit Only Diagnoses Chronic systolic CHF (congestive heart failure) I50.22 CAD (coronary artery disease) I25.10 CKD (chronic kidney disease) N18.9 S/P CABG x 2 Z95.1 ICD (implantable cardioverter-defibrillator) in place Z95.810 HTN (hypertension) I10 HLD (hyperlipidemia) E78.5 Ischemic cardiomyopathy I25.5 CPT Codes Cardiac Device Check - Cardiac Device 9: [id number] Device Interrogation, imp lantable defibrillator ([id number]) Time Spent (min) 28
[2025-06-17 12:57] VITALS: BP 118/72; PULSE 96
--- OUTSIDE RECORDS SUMMARY | 2025-06-17 17:53 | XMS_ITS ---
Author Organization [facility] Address [address] [place] [address] Care Team Providers Care Desktop Engineer Name Role Phone Marcin QUINTERO MD, Guido Molina Primary Care Provider [phone]- [phone] Active Problems Problem Noted Date Diagnosed Date Headache 12/08/2024 Assessment & Plan (12/10/2024 1:40 PM EDT): Patient reported frontal headache morning of 6/7. He stated it felt like headaches he has had in the past. Noted that he vomited 5 times as a result. Trial of Reglan, Maalox and morphine x 1 with good effect. Upon discharge: - Continue home medication Assessment & Plan (12/09/2024 8:06 AM EDT): Patient reported frontal headache morning of 6/7. He stated it felt like headaches he has had in the past. Noted that he vomited 5 times as a result. Trial of Reglan, Maalox and morphine x 1 with good effect. - Tylenol 975 mg every 8 hours as needed Assessment & Plan (12/08/2024 2:18 PM EDT): Patient reported frontal headache morning of 6/7. He stated it felt like headaches he has had in the past. Noted that he vomited 5 times as a result. Trial of Reglan, Maalox and morphine x 1 with good effect. - Tylenol 975 mg every 8 hours as needed Failure to thrive in adult 12/07/2024 Assessment & Plan (12/10/2024 1:40 PM EDT): Patient describes limited support and health literacy, is not able to reach his pharmacy or health appointments. Was without medications or glucometer for over 1 months, there is concern for failure to thrive, will benefit from social work consult. Upon discharge: - Continue to work with [facility] - Provided with medications as [id number] prior to DC - informed PCP to close loop communication - Endocrinology/Diabetes referral provided - PCP appt with Dr. Burch scheduled for 12/13 Assessment & Plan (12/09/2024 8:06 AM EDT): Patient describes limited support and health literacy, is not able to reach his pharmacy or health appointments. Was without medications or glucometer for over 1 months, there is concern for failure to thrive, will benefit from social work consult. - Social work consult for resources and support with medications Assessment & Plan (12/08/2024 2:03 PM EDT): Patient describes limited support and health literacy, is not able to reach his pharmacy or health appointments. Was without medications or glucometer for over 1 months, there is concern for failure to thrive, will benefit from social work consult. - Social work consult for resources and support with medications Assessment & Plan (12/07/2024 6:17 PM EDT): Patient describes limited support and health literacy, is not able to reach his pharmacy or health appointments. Was without medications or glucometer for over 1 months, there is concern for failure to thrive, will benefit from social work consult. - Social work consult for resources and support with medications Gastritis 12/07/2024 Assessment & Plan (12/10/2024 1:40 PM EDT): Patient reports history of gastritis with abdominal pain intermittently. Upon discharge: - Continue pantoprazole 40mg daily - Continue TUMS 500mg 3 times a day with meals Assessment & Plan (12/09/2024 8:06 AM EDT): Patient reports history of gastritis with abdominal pain intermittently. - Continue pantoprazole 40mg daily - Continue TUMS 500mg 3 times a day with meals Assessment & Plan (12/08/2024 2:03 PM EDT): Patient reports history of gastritis with abdominal pain intermittently. - Continue pantoprazole 40mg daily - Continue TUMS 500mg 3 times a day with meals Assessment & Plan (12/07/2024 6:17 PM EDT): Patient reports history of gastritis with abdominal pain intermittently. - Continue pantoprazole 40mg daily - Continue TUMS 500mg 3 times a day with meals Neuropathy 11/11/2023 Assessment & Plan (11/13/2023 12:46 PM EDT): Patient w/ diabetic neuropathy complaining of burning pain and tingling in bilateral feet/legs. Gabapentin previously on hold due to renal function - Gabapentin at decreased dose 100 mg TID Hypothyroidism 11/08/2023 Assessment & Plan (11/08/2023 5:51 PM EDT): Pt w/ mild TSH elevation to 4.743, T4 mildly low at 0.52. Given no constipation, fatigue, hair loss or other sx, will hold off on levothyroxine initiation - Repeat thyroid studies outpatient Hepatic steatosis 11/06/2023 Congestive heart failure (CHF) 11/05/2023 Assessment & Plan (12/10/2024 1:40 PM EDT): Patient with history of CHF, he is on home diuretic. Patient clinically euvolemic. See section history of CABG Assessment & Plan (12/09/2024 8:06 AM EDT): Patient with history of CHF, he is on home diuretic. Patient clinically euvolemic. See section history of CABG Assessment & Plan (12/08/2024 2:03 PM EDT): Patient with history of CHF, he is on home diuretic. Patient clinically euvolemic. See section history of CABG Assessment & Plan (12/07/2024 6:17 PM EDT): Patient with history of CHF, he is on home diuretic. Patient clinically euvolemic. See section history of CABG Assessment & Plan (11/07/2023 9:36 AM EDT): Home Medications: Torsemide 20 mg daily. Patient has a history of CHF. He is on a home diuretic. CXR Streaky opacities at the left lung base, most likely atelectasis. He states he does get short of breath when he ambulates at times. Lung sounds are clear and he is on room air. No edema noted on exam. Per notes from [facility] in September 2023: Echo showed an EF of 55% with mild left atrial enlargement normal diastolic function -Diuresis per MAURI-on-CKD -Daily weights. -BNP 131 11/04 Assessment & Plan (11/05/2023 12:15 AM EDT): Home Medications: Toresemide 20 mg daily. Patient has a history of CHF. He is on a home diuretic. CXR Streaky opacities at the left lung base, most likely atelectasis. He states he does get short of breath when he ambulates at times. Lung sounds are clear and he is on room air. No edema noted on exam. Per notes from [facility] in September 2023: Echo showed an EF of 55% with mild left atrial enlargement normal diastolic function -Holding Toresemide 20 mg in setting of MAURI. Restart when indicated. -Daily weights. -Check BNP. History of CVA (cerebrovascular accident) 2023 Assessment & Plan (12/10/2024 1:40 PM EDT): CVA ~ 2017 with associated left eye droop. No other known deficits. Upon discharge: - Continue home aspirin and statin Assessment & Plan (12/09/2024 8:06 AM EDT): CVA ~ 2017 with associated left eye droop. No other known deficits. - Continue home aspirin and statin Assessment & Plan (12/08/2024 2:18 PM EDT): CVA ~ 2017 with associated left eye droop. No other known deficits. - Continue home aspirin and statin Assessment & Plan (11/06/2023 1:27 PM EDT): Patient tells me he has a history of a CVA about ten years ago and he has left sided weakness and a left eye droop from. On exam, he has equal hand grasps. From medical record, appears this was in 2017. - Continue to monitor Assessment & Plan (11/05/2023 12:26 AM EDT): Patient tells me he has a history of a CVA about ten years ago and he has left sided weakness and a left eye droop from. On exam, he has equal hand grasps. From medical record, appears this was in 2017. -monitor Coronary artery disease 11/04/2023 Assessment & Plan (11/05/2023 12:09 AM EDT): Depression 11/04/2023 Assessment & Plan (12/10/2024 1:40 PM EDT): Patient with hx of depression. Patient was started on anti-depressants in 2023 as patient went through divorce and his son . Medically managed with duloxetine and amitriptyline. Upon discharge: - Continue Duloxetine 40 mg twice daily - Continue Amitriptyline 25 mg nightly Assessment & Plan (12/09/2024 8:06 AM EDT): Patient with hx of depression. Patient was started on anti-depressants in 2023 as patient went through divorce and his son . Medically managed with duloxetine and amitriptyline. - Continue Duloxetine 40 mg twice daily - Continue Amitriptyline 25 mg nightly Assessment & Plan (12/08/2024 2:03 PM EDT): Patient with hx of depression. Patient was started on anti-depressants in 2023 as patient went through divorce and his son . Medically managed with duloxetine and amitriptyline. - Continue Duloxetine 40 mg twice daily - Continue Amitriptyline 25 mg nightly Assessment & Plan (12/07/2024 6:17 PM EDT): Patient with hx of depression. Patient was started on anti-depressants in 2023 as patient went through divorce and his son . Medically managed with duloxetine and amitriptyline. - Continue Duloxetine 40 mg twice daily - Continue Amitriptyline 25 mg nightly Assessment & Plan (11/14/2023 10:19 AM EDT): Home medications: Duloxetine 40 mg twice daily, Amitriptyline 25 mg nightly, lorazepam 0.5 mg PRN twice daily. Patients son about a year ago and patient is now alone and homeless. He is also going through divorce. He denies SI. At last documented visit to [facility], he was evaluated by [facility] [employer] and psychiatry and they deemed him not to be a risk for suicide. At this time, Psychiatry recommended stopping his sertraline -Continue Duloxetine 40 mg twice daily. -Continue Amitriptyline 25 mg nightly. -Hold on PRN ativan since patient is not endorsing anxiety at this time. Unclear where he is getting this filled as well, since [facility]. -Palliative care consult on today Assessment & Plan (11/05/2023 12:09 AM EDT): Home medications: Duloxetine 40 mg twice daily, Amitriptyline 25 mg nightly, lorazepam 0.5 mg PRN twice daily. Patients son about a year ago and patient is now alone and homeless. He is also going through divorce. He denies SI. At last documented visit to [facility], he was evaluated by [facility] [employer] and psychiatry and they deemed him not to be a risk for suicide. At this time, Psychiatry recommended stopping his sertraline -Continue Duloxetine 40 mg twice daily. -Continue Amitriptyline 25 mg nightly. -Hold on PRN ativan since patient is not endorsing anxiety at this time. Unclear where he is getting this filled as well, since per [facility] it has not been filled since 06/2023. Type 2 diabetes mellitus 11/04/2023 Assessment & Plan (11/17/2023 11:27 AM EDT): Home medication: Lantus 40 units daily, Lispro 10 units prior to meals Patient w/ history of type 2 DM. He states he is compliant with his medication but it is unclear where he fills his medications. He states he got his last round of medication at [place] when he got chemo in October. On arrival to the ED, he arrived with a blood sugar of 643. Gap was 10. CO2 24. He was given 2 L of LR in the ED and 5 units of lispro. Recheck finger stick was 418 and continues to trend down. A1c on 11/03: 11.9 -Diabetes consulted, appreciate recs -Basal: Lantus 20 -Corrective: Low dose sliding scale with meals and bedtime. -Prandial: 4 units w/ breakfast, 3U lunch and dinner Assessment & Plan (11/05/2023 12:50 AM EDT): Home medication: Lantus 40 units daily, Lispro 10 units prior to meals Patient has a history of type 2 DM. He states he is compliant with his medication but it is unclear where he fills his medcaiton. He states he got his last round of medication at [place] when he got chemo in October. He does state he took his lantus this morning (11/03). He arrives with a blood sugar of 643. Gap was 10. CO2 24. He was given 2 L of LR in the ED and 5 units of lispro. Recheck finger stick was 418 and continues to trend down. NA 129 on arrival, however, corrected NA in regards to the hyperglycemia is 138. -Lantus 40 units daily starting tomorrow -Low dose sliding scale with meals and bedtime. -Monitor blood sugar at meals and bedtime. -Consult inpatient hand striper due to hyperglycemia (appears he has been admitted numerous times for this). -Consult diabetes team for recommendations. -Check A1C. -Monitor for signs of hypoglycemia and hyperglycemia. Homelessness 11/04/2023 Assessment & Plan (11/05/2023 4:14 PM EDT): Patient is going through a divorce. He use to reside with a friend in [place] but no longer. He says he lives on the streets. -Consult social work Assessment & Plan (11/04/2023 11:59 PM EDT): Patient is going through a divorce. He use to reside with a friend in [place] but no longer. He says he lives on the streets. 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 Villasenor at [facility]. Per his outside records he was found to have 8% plasma cells on the aspirate and 10 to 15% on bone marrow however it is unclear when this bone marrow biopsy was completed. M-spike was 0.2. The decision to treat was made based on patient's anemia and renal dysfunction. Patient had been offered second line treatment with carfilzomib, daratumumab and dexamethasone in late 2022 however he had declined due to prior side effects from treatment. During recent admission 11/2023 for severe hyperglycemia and diffuse pain, he had an M spike of 0.2 which was IgG kappa on immunofixation. Immunoglobulin levels were significant for a slightly elevated IgA of 387. IgG was within normal limits. Duque free light chain level 65.4 with free light chain ratio of 2.15. During 11/2023 admission hemoglobin stable 9-11. Iron studies consistent with iron deficiency with low iron and TSAT. B12 and folate were within normal limits. His creatinine remained stable 1.5-[address] R hip, thoracic, and lumbar spine were negative for destructive osseous lesions. His inpatient imaging did show well-circumscribed lytic lesions in the iliac bone w/ non aggressive feature on CT, likely degenerative cysts. X-rays of the chest, right hip/femur/knee all negative for lytic lesions. Skeletal survey in May 2023 (performed at [place]) reportedly showed evidence of bilateral small lesions in proximal and mid humerus suspicious for myeloma. Assessment & Plan (12/10/2024 1:40 PM EDT): Patient with history of multiple myeloma, prior chemotherapy 02/2021. CTAP 11/2023 showed lytic iliac bone lesions Follows with Dr. Smith, last seen 11/14 at which time repeat MGUS labs were sent and patient was scheduled for whole-body PET/CT. Noted to have elevated kappa light chains to 51, normal lambda light chains with ratio 2.45. Upon discharge: - Follow-up with Oncology, scheduled with Dr. Orozco on 12/26 - follow up OP PET scan to look for bony involvement Assessment & Plan (12/09/2024 1:45 PM EDT): Patient with history of multiple myeloma, prior chemotherapy 02/2021. CTAP 11/2023 showed lytic iliac bone lesions Follows with Dr. Smith, last seen 11/14 at which time repeat MGUS labs were sent and patient was scheduled for whole-body PET/CT. Noted to have elevated kappa light chains to 51, normal lambda light chains with ratio 2.45. - Oncology consulted inpatient given elevated light chain ratio - per oncology recs: SPEP, immunofixation, kappa lambda light chains, immunoglobulains (igg, igm, iga) sent Assessment & Plan (12/08/2024 2:18 PM EDT): Patient with history of multiple myeloma, prior chemotherapy 02/2021. CTAP 11/2023 showed lytic iliac bone lesions Follows with Dr. Smith, last seen 11/14 at which time repeat MGUS labs were sent and patient was scheduled for whole-body PET/CT. Noted to have elevated kappa light chains to 51, normal lambda light chains with ratio 2.45. - Consider oncology consult inpatient given elevated light chain ratio Assessment & Plan (01/26/2024 7:13 PM EDT): Based on current information, patient does not meet criteria for multiple myeloma. He has 5% plasma cell infiltration in the bone marrow on his bone marrow biopsy. His M spike remains low (0.2) and his free light chain ratio is not impressive, may be secondary to CKD. It is possible that the patient previously had smoldering myeloma and has had a prolonged response to prior treatment with RVD. He does have anemia although this is not very severe. Today hemoglobin is 11.5 and normocytic. Iron studies have improved on oral iron. His creatinine has also normalized, and renal dysfunction was likely secondary to poorly controlled diabetes. 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 Calcium is within normal limits. There is also no documented suspicious lytic lesions on his x-rays or CTs during recent admission 11/2023 although he did have lytic lesions in the iliac bones most c/w cysts. Patient's full body MRI for evaluation of lytic lesions was cancelled due to ability to confirm whether his pacemaker is MRI compatible. He is now planned for f/up PET/CT next week. There is no indication for myeloma directed therapy at this time, and based on current information diagnosis is most consistent with MGUS versus treatment response of smoldering myeloma. Unless patient has concerning lytic lesions on PET/CT, will plan for patient to return to clinic in 2 months for repeat SPEP with JEANA and free light chains for monitoring. For now we will plan to monitor patient every 3 months with labs. If there are concerning findings on his PET/CT, we will bring patient back to clinic sooner for further discussion. -whole body PET/CT -RTC 2 months with repeat SPEP w/ IPE and FLCs Assessment & Plan (12/15/2023 4:12 PM EDT): Based on current information, patient does not meet criteria for multiple myeloma. He has some iron deficiency likely contributing to his anemia and his renal dysfunction was likely secondary to poorly controlled diabetes. 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 His renal function is actually improved today. There is also no documented suspicious lytic lesions on his x-rays or CTs during recent admission although he did have lytic lesions in the iliac bones most c/w cysts. His M spike is low and his free light chain ratio is not impressive, may be secondary to CKD. For further diagnosis, recommend repeat bone marrow biopsy as well as full body MRI. There is no indication for myeloma directed therapy at this time. -f/up immunoglobulins, SPEP w/ JEANA, FLC w/ ratio -RTC in 1 week for bone marrow biopsy -MRI whole body -RTC 4 week for f/up -Repeat iron studies at next visit, start PO iron (message left for [facility]) Assessment & Plan (11/14/2023 10:20 AM EDT): Home Medications: Lenalidomide 15 mg daily. Gabapentin 400 mg twice a day. Duloxetine 40 mg twice daily. Patient is followed by Dr. Villasenor in [place] for IgG kappa MM. No longer on active chemo though gets denosumab Q 3 mos. He was discharged from [facility] in September and appears plain film survey negative for any metastatic disease. Despite gabapentin, narcotics, Cymbalta he consistently reports pain being 10 out of 10. Palliative care was consulted during his stay to assist with pain management. He was provided extended release oxycodone 10 mg twice daily, 10 mg immediate release oxycodone every 4 hours as needed. Gabapentin increased to 400 mg twice daily, continues on Cymbalta. However, it does not appear he was discharged with oxycodone prescriptions. Lidocaine patch provided. The patient ambulates with walker. Patient complains of significant arthralgias and joint pain and neck pain. Plain film survey negative for metastatic disease. Patient is complaining of 10/10 pain in his R hip and shoulder, back, neck, feet. Patient states this is his chronic pain. Unsure if this is further progression of his myeloma. Xray of right femur, right hip and pelvis and right knee negative for acute injury. CT T and L spine, hip negative for acute fractures or lytic lesions thus unrevealing for cause of diffuse pain crisis. However, CTAP w/ contrast 11/07 demonstrated well-circumscribed lytic lesions in the iliac bones -Pain management: Oxycodone IR 10 or 15 mg q 4 hours. Gabapentin 100 TID. Tylenol 650 mg PRN. Lidocaine patch daily. Dilaudid 0.2 mg iv q4hr prn breakthrough -Bowel regimen de-escalated due to loose stools - Not on current treatment per outpatient onc records, only on denosumab Q3mos - Multiple myeloma labs: SPEP showing IgG kappa M-spike of 0.2, kappa lambda light chains pending, and immunoglobulins showing elevated IgA 387, IgG and IgM wnl - urine light chains showing elevated Duque/Lambda ratio of 9.51 - Oncology consulted regarding need for resuming tx and wanting to transfer care here due to current unsheltered status, deferring treatment to outpatient - Plan for palliative care and health psych consults today Assessment & Plan (11/04/2023 11:44 PM EDT): Home Medications: Lenalidomide 15 mg daily. Gabapentin 400 mg twice a day. Duloxetine 40 mg twice daily. Patient is followed by Dr. Villasenor in [place]. He states his last chemo was in October. His next is in November. He is homeless with no transportation. He was discharged from [facility] in September and appears Plain film survey negative for any metastatic disease. Despite gabapentin, narcotics, Cymbalta he consistently reports pain being 10 out of 10. Palliative care was consulted during his stay to assist with pain management. He was provided extended release oxycodone 10 mg twice daily, 10 mg immediate release oxycodone every 4 hours as needed. Gabapentin increased to 400 mg twice daily, continues on Cymbalta. However, it does not appear he was discharged with oxycodone prescriptions. Lidocaine patch provided. The patient ambulates with walker. Patient complains of significant arthralgias and joint pain and neck pain. Plain film survey negative for metastatic disease. Patient is complaining of 10/10 pain in his hip, back, neck, feet. Patient states this is his chronic pain. Xray of right femur, right hip and pelvis and right knee negative for acute injury. -Pain management: Oxycodone IR 10 mg q 4 hours. Gabapentin 400 mg twice daily. Tylenol 650 mg PRN. Lidocaine patch daily. -Bowel regimen to prevent opioid induced constipation: Miralax daily, Colace twice daily. Increase as needed. -He is on Lenalidomide 15 mg daily. Confirm dose tomorrow and order. -Reach out to patient oncologist in the AM to confirm medication & dosing and treatment plan. -Consideer consult Heme/onc. Unclear how patient is getting to appointments due to homelessness and no transportation. BPH (benign prostatic hyperplasia) 11/04/2023 Assessment & Plan (11/13/2023 12:38 PM EDT): Home Medications: Tamsulosin Recently Tamsulosin substituted for alfuzosin. Patient having a difficult time voiding, bladder scan >400 ml. He also states he has had blood in his urine recently. However, UA was negative for blood. No bacteria. Positive for glucose and protein. -Bladder scan q 6 hours and PRN if no void. -Alfuzosin is non-formulary. Order Tamsulosin 0.4 mg daily while in patient. Assessment & Plan (11/05/2023 12:49 AM EDT): Home Medications: Tamsulosin Recently Tamsulosin substituted for alfuzosin. Patient having a difficult time voiding, bladder scan >400 ml. He also states he has had blood in his urine recently. However, UA was negative for blood. No bacteria. Positive for glucose and protein. -Bladder scan q 6 hours and PRN if no void. -Straight cath x1 -Follow urine culture. -Alfuzosin is non-formulary. Order Tamsulosin 0.4 mg daily while in patient. Anemia 09/04/2023 Overview (11/04/2023): Last Assessment & Plan: Presented with a hemoglobin of 9.6, has trended down to as low as 8.3 today Suspect gastritis/esophagitis as noted on imaging. He is now on PPI. -Continue iron supplement -B12, folate within normal limits -Monitor -He continues on PPI -If this were to trend down further, would consider EGD +/- colonoscopy Assessment & Plan (11/13/2023 12:39 PM EDT): Presented w/ hgb 11.3, baseline around 10.5 per outpatient records. Likely iso known multiple myeloma. However, counts slowly down-trending and patient noting red blood in his bowel movements 11/09. Likely multifactorial iso IVF-related hemodilution as well as possible blood loss from pancolitis. Hgb stabilizing and patient declining further bloody stools as of 11/10 - Continue daily CBC - Transfuse Hgb <7 Hematemesis with nausea 09/01/2023 Overview (11/04/2023): Last Assessment & Plan: Reported but unverified episode of hematemesis last wk , but has been reporting episodes of epistaxis and I suspect he may be ingesting some of that blood. Aspirin and Plavix were held. -Will hold DAPT for the time being; discontinue Plavix given stent placement was greater than 1 year ago, dual antiplatelet therapy has put him at risk for epistaxis/GI bleed; continue to hold aspirin -Continue PPI daily -Patient was seen by GI on 09/01 -Can consider ENT or endoscopy again if hg continues to drop; currently lower but stable -restart asa in am if no ongoing epistaxis Hx of coronary artery bypass graft 08/05/2021 Assessment & Plan (12/10/2024 1:40 PM EDT): Home Medications: Coreg 12.5 mg twice daily, Torsemide 20 mg daily. Aspirin 81 mg daily. Plavix . Atorvastatin 80 mg daily. CAD with CABG 2019. Continued home medications. Follow-up with his needle polisher in outpatient setting. Torsemide per [facility] section. Upon discharge: - Continue coreg 12.5mg BID - Continue aspirin 81 mg daily - Continue atorvastatin 80 mg nightly Assessment & Plan (12/09/2024 8:06 AM EDT): Home Medications: Coreg 12.5 mg twice daily, Torsemide 20 mg daily. Aspirin 81 mg daily. Plavix . Atorvastatin 80 mg daily. CAD with CABG 2019. Continued home medications. Follow-up with his needle polisher in outpatient setting. Torsemide per [facility] section. - Continue coreg 12.5mg BID - Continue aspirin 81 mg daily - Continue atorvastatin 80 mg nightly Assessment & Plan (12/08/2024 2:03 PM EDT): Home Medications: Coreg 12.5 mg twice daily, Torsemide 20 mg daily. Aspirin 81 mg daily. Plavix . Atorvastatin 80 mg daily. CAD with CABG 2019. Continued home medications. Follow-up with his needle polisher in outpatient setting. Torsemide per [facility] section. - Continue coreg 12.5mg BID - Continue aspirin 81 mg daily - Continue atorvastatin 80 mg nightly Assessment & Plan (12/07/2024 6:17 PM EDT): Home Medications: Coreg 12.5 mg twice daily, Torsemide 20 mg daily. Aspirin 81 mg daily. Plavix . Atorvastatin 80 mg daily. CAD with CABG 2019. Continued home medications. Follow-up with his needle polisher in outpatient setting. Torsemide per [facility] section. - Continue coreg 12.5mg BID - Continue aspirin 81 mg daily - Continue atorvastatin 80 mg nightly Assessment & Plan (11/06/2023 1:55 PM EDT): Home Medications: Coreg 12.5 mg twice daily, Torsemide 20 mg daily. Aspirin 81 mg daily. Plavix . Atorvastatin 80 mg daily. CAD with CABG 2019. Per notes from [facility] in September 2023: Echo showed an EF of 55% with mild left atrial enlargement normal diastolic function. At [facility], they discontinued his Plavix due to epistatxis and stent placement was greater than 1 year ago, dual antiplatelet therapy has put him at risk for epistaxis/GI bleed -Continue home medications. -Follow-up with his needle polisher in outpatient setting -Torsemide per [facility] section Assessment & Plan (11/04/2023 11:51 PM EDT): Home Medications: Coreg 12.5 mg twice daily, Torsemide 20 mg daily. Aspirin 81 mg daily. Plavix . Atorvastatin 80 mg daily. CAD with CABG 2019. Per notes from [facility] in September 2023: Echo showed an EF of 55% with mild left atrial enlargement normal diastolic function Appears at [facility], they discontinued his Plavix due to epistatxis and stent placement was greater than 1 year ago, dual antiplatelet therapy has put him at risk for epistaxis/GI bleed -Continue Coreg -Hold Torsemide 20 mg due to [facility]. -Continue Atorvastatin 80 mg nightly. -Continue Aspirin 81 mg daily. -Hold on Plavix due to it being discontinued at last documented hospital visit. -Follow-up with his needle polisher Gastroesophageal reflux disease 03/30/2021 Assessment & Plan (11/14/2023 10:20 AM EDT): Home Medications: Protonix 40 mg daily. Patient reported increased nausea and vomiting, unclear if related to reflux and/or further exacerbated by oxycodone use. -Increased to PO Protonix 40 mg BID on 11/12 -Maalox 30 mL q6h prn Assessment & Plan (11/05/2023 12:10 AM EDT): Home Medications: Protonix 40 mg daily. -Continue home PPI: Protonix 40 mg daily. Generalized ischemic myocardial dysfunction 02/2020 Overview (11/04/2023): November 2019 November 2019 Obesity (BMI 30.0-34.9) 04/10/2020 Steatosis of liver 04/10/2020 Obstructive sleep apnea 06/15/2019 Overview (11/04/2023): [facility] Home Sleep Apnea Test: Date 06/11/2019; Wt 194#; BMI 30; HECTOR 9, AI 5; HI 4; Unclassified apneas 0; Obstructive apneas 16; Central apneas 5; Mixed apneas 0; hypopneas 18; average oxygen saturation 93% (lowest 86% without saturations <88% for 5% or more of study) - Obstructive Sleep Apnea - mild; mostly hypopneas and obstructive apneas; without sleep related hypoventilation by 2018 home sleep apnea test. [facility] Home Sleep Apnea Test: Date 06/11/2019; Wt 194#; BMI 30; HECTOR 9, AI 5; HI 4; Unclassified apneas 0; Obstructive apneas 16; Central apneas 5; Mixed apneas 0; hypopneas 18; average oxygen saturation 93% (lowest 86% without saturations <88% for 5% or more of study) - Obstructive Sleep Apnea - mild; mostly hypopneas and obstructive apneas; without sleep related hypoventilation by 2018 home sleep apnea test. Assessment & Plan (11/07/2023 9:40 AM EDT): Appears patient has a history of STEPHANIE, not on CPAP. -Continue pulse monitoring. Assessment & Plan (11/04/2023 11:53 PM EDT): Appears patient has a history os STEPHANIE, not on CPAP. -Continue pulse monitoring. Chronic systolic heart failure 04/26/2019 Overview (11/04/2023): EF 15-20% EF 15-20% Stage 3 chronic kidney disease 04/26/2019 Polysubstance abuse 09/20/2018 Overview (11/04/2023): overdose of cocaine and heroin on 05/11/18 pt noted chest pain around that time overdose of cocaine and heroin on 05/11/18 pt noted chest pain around that time Hypercholesterolemia 02/07/2015 Assessment & Plan (11/06/2023 1:33 PM EDT): Home Medications: Atorvastatin 80 mg daily, Fenofibrate 1 tablet daily. -Continue home regimen Assessment & Plan (11/04/2023 11:52 PM EDT): Home Medications: Atorvastatin 80 mg daily, Fenofibrate 1 tablet daily. -Continue home regimen -Check LFTs -Check a lipid panel Current Treatment and Therapy Plans No current plan information found. Past Treatment and Therapy Plans No past plan information found. Lifetime Dose Tracking * Chemical Lifetime Dose Automatic Entry Manual Entr y TotalDLP 2,163 mGy 2,163 mGy 0 mGy [id number] 27.1 mSv 27.1 mSv 0 mSv CTDIvol Max 45.3 mGy 45.3 mGy 0 mGy CTDIvol Min 27.5 mGy 27.5 mGy 0 mGy Resolved Problems Problem Noted Date Diagnosed Date Resolved Date Pain crisis 12/07/2024 12/10/2024 Assessment & Plan (12/09/2024 8:06 AM EDT): Patient with plasma cell dyscrasia and multiple myeloma. Patient is describing body pain throughout and is describing deep, likely bone pain, 2/2 to his plasma cell dyscrasia. Patient has been without medications including pain control, will start on a pain regimen to help control the pain crisis. - oxycodone 10 mg Q4H PRN - flexeril 5mg 3 times a day PRN - Tylenol 650 mg Q6H PRN Assessment & Plan (12/08/2024 2:03 PM EDT): Patient with plasma cell dyscrasia and multiple myeloma. Patient is describing body pain throughout and is describing deep, likely bone pain, 2/2 to his plasma cell dyscrasia. Patient has been without medications including pain control, will start on a pain regimen to help control the pain crisis. - oxycodone 10 mg Q4H PRN - flexeril 5mg 3 times a day PRN - Tylenol 650 mg Q6H PRN Assessment & Plan (12/07/2024 6:17 PM EDT): Patient with plasma cell dyscrasia and multiple myeloma. Patient is describing body pain throughout and is describing deep, likely bone pain, 2/2 to his plasma cell dyscrasia. Patient has been without medications including pain control, will start on a pain regimen to help control the pain crisis. - oxycodone 10 mg Q4H PRN - flexeril 5mg 3 times a day PRN - Tylenol 650 mg Q6H PRN Sore throat 11/11/2023 11/18/2023 Assessment & Plan (11/17/2023 11:26 AM EDT): Patient endorsing sore/dry throat. No leukocytosis, fever or other sx other than C. Diff associated diarrhea to support viral illness given flu/covid/rsv negative on arrival 11/03. Had no further complaints of this later into the admission. - throat lozenges PRN Dizziness 11/11/2023 11/18/2023 Assessment & Plan (11/11/2023 3:10 PM EDT): Patient noting recurrent dizziness while working with PT. Orthostatic vitals negative for orthostatic hypotension. Intact [id number], rapid alternating movements and [id number] on exam, remainder of neuro exam nml thus minimal concern for basilar stroke. Suspect sx more likely medication-induced iso opioids - Continue to monitor - Trial meclizine 12.5 mg 3 times a day PRN Shortness of breath 11/10/2023 11/18/19 24 Assessment & Plan (11/17/2023 11:26 AM EDT): Patient complaining of shortness of breath. Smoking hx w/ wheezing noted on exam suspicious for undiagnosed COPD. Not hypoxic and euvolemic, afebrile and no crackles on exam so low suspicion for pneumonia or CHF exacerbation. He has had no further episodes of shortness of breath - Trial duonebs Q4H scheduled, will de-escalate to 4 times a day - Albuterol nebs q4h prn Mobility impaired 11/08/2023 11/18/2023 Nausea & vomiting 11/08/2023 11/18/2023 Assessment & Plan (11/14/2023 10:20 AM EDT): Patient experiencing nausea and vomiting, per outpatient onc records this is a longstanding issue which has previously been attributed to cannabis hyperemesis syndrome. However, cannot rule out gastroparesis given A1c ~12. Given chronicity of intermittent nausea/vomiting, sx likely multifactorial in setting of possible gastroparesis plus superimposed acute pancolitis. Patient was experiencing nausea even when not eating. Another consider was nausea secondary to oxycodone use. -IV Zofran 4 mg q8h prn for nausea switched to compazine prior to meals - Maalox scheduled - See pancolitis Pancolitis 11/08/2023 11/18/2023 Assessment & Plan (11/17/2023 11:25 AM EDT): Patient endorsing diarrhea beginning overnight 11/06, which he states is a chronic problem for him. Patient states he was going every 10 minutes. BP stable and afebrile, diffuse abdominal pain and mild distention on exam. CTAP obtained 11/07, which showed pancolitis w/ greater involvement in L than R w/ both infectious and inflammatory etiologies possible. Stomach also distended w/ normal small bowel course/caliber. C. Diff studies showed positive C. Diff toxin PCR and GDH Ag but negative Toxin A/B. These studies would typically support colonization however iso imaging evidence of pancolitis and profuse watery diarrhea and general malaise, favor active infection. Stool cultures negative for E. Coli, shigella, salmonella and campylobacter. Initiated on PO vancomycin 11/09 w/ subsequent resolution of diarrhea and bloody stool. - Continue PO vancomycin 125 mg 4 times a day for expected 10-day course (D1 11/09- 11/18) - See [facility] for IV fluids Fall 11/05/2023 11/18/2023 Assessment & Plan (11/08/2023 5:16 PM EDT): Patient reports a recent fall and he has had increased weakness. Xray of right femur, right hip and pelvis and right knee negative for acute injury. He says he uses a walker to ambulate. - Physical therapy consult - TSH mildly elevated at 4.743 w/ mildly low T4, B12 was 635 and folate was >24. - Fall precautions. Assessment & Plan (11/05/2023 12:12 AM EDT): Patient reports a recent fall and he has had increased weakness. Xray of right femur, right hip and pelvis and right knee negative for acute injury. He says he uses a walker to ambulate. -Physical therapy consult -Check TSH, folate, B12, iron panel (slightly anemic). -Fall precautions. Hyperglycemia due to diabetes mellitus 11/04/2023 12/10/2024 Assessment & Plan (12/10/2024 5:01 PM EDT): Patient has history of hyperglycemia due to being without insulin for his insulin-dependent type 2 diabetes mellitus. Patient was discharged from 11-month stay at rehab but was unable to obtain his medications or reach follow-up PCP appointment. 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 On presentation, patient glucose level 527 but labs negative for DKA. Patient will be restarted on insulin regimen to help control his glucose levels. Upon discharge: - Continue Insulin Glargine 20U nightly - Lispro 3U three times a day with meals. - LDISS - OP endo ambulatory referral provided - carb consistent diet Assessment & Plan (12/09/2024 8:06 AM EDT): Patient has history of hyperglycemia due to being without insulin for his insulin-dependent type 2 diabetes mellitus. Patient was discharged from 11-month stay at rehab but was unable to obtain his medications or reach follow-up PCP appointment. 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 On presentation, patient glucose level 527 but labs negative for DKA. Patient will be restarted on insulin regimen to help control his glucose levels. - Insulin Glargine 20U nightly - MDISS - titrate insulin regimen based on glucose levels - carb consistent diet Assessment & Plan (12/08/2024 2:18 PM EDT): Patient has history of hyperglycemia due to being without insulin for his insulin-dependent type 2 diabetes mellitus. Patient was discharged from 11-month stay at rehab but was unable to obtain his medications or reach follow-up PCP appointment. 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 On presentation, patient glucose level 527 but labs negative for DKA. Patient will be restarted on insulin regimen to help control his glucose levels. - Insulin Glargine 20U nightly - MDISS - titrate insulin regimen based on glucose levels - carb consistent diet Assessment & Plan (12/07/2024 6:17 PM EDT): Patient has history of hyperglycemia due to being without insulin for his insulin-dependent type 2 diabetes mellitus. Patient was discharged from 11-month stay at rehab but was unable to obtain his medications or reach follow-up PCP appointment. 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 On presentation, patient glucose level 527 but labs negative for DKA. Patient will be restarted on insulin regimen to help control his glucose levels. - Insulin Glargine 10U nightly - MDISS - titrate insulin regimen based on glucose levels - carb consistent diet Hypertension 11/04/2023 11/04/2023 Acute kidney injury superimposed on CKD 08/29/2023 11/18/2023 Overview (11/04/2023): Last Assessment & Plan: Cr on admission was 1.4. Peak of 2.4. Creatinine has improved to 1.7 and is stable. Suspect this is his baseline. He does see a client business manager outpatient, reports history of CKD. -Monitor daily; baseline creatinine appears to be between 1.6 and 1.8. -Resuming his diuretic, torsemide daily and monitor -Renally adjust medications Assessment & Plan (11/13/2023 12:44 PM EDT): Home Medications: Torsemide 20 mg daily. Cr on admission was 1.99. Appears from medical record, baseline is about 1.7- 1.8. He does see a client business manager outpatient, reports history of CKD. Creatinine initially improved to ~1.5, however following development of diarrhea and imaging requiring contrast, creatinine up-trending to over 2 FeNa 2.5%, FEUrea 51.4% both supportive of intrinsic renal disease. -Daily renal function labs -Hold home Torsemide for now; no signs of fluid overload. Continue to hold given decreased PO intake iso nausea -Renally adjust medications -I&Os. -Daily Weights. Assessment & Plan (11/05/2023 12:35 AM EDT): Home Medications: Torsemide 20 mg daily. Cr on admission was 1.99. Appears from medical record, baseline is about 1.7- 1.8. He does see a client business manager outpatient, reports history of CKD. CrCl is 52 mL/min. His height is 5 ft 7 inch and weighs 180 labs. Creatinine is 1.99. -Monitor daily; baseline creatinine appears to be between 1.6 and 1.8. -Hold home Torsemide for now; no signs of fluid overload. Restart when kidney function returns to baseline. -Renally adjust medications -I&Os. -Daily Weights. 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
--- OUTSIDE RECORDS SUMMARY | 2025-06-17 17:54 | XMS_ITS | Clinical Summary ---
Author Organization [facility] [address] [place] [address] [place] [phone] Phone Care Team Providers Care Job Estimator Name Role Phone Guido Burch MD Primary Care Provider [phone] Allergies Active Allergy Reactions Criticality Noted Date Comments Empagliflozin 03/13/2018 Meperidine Other 12/30/2014 anxiety Other reaction(s): OTHER anxiety Other 08/13/2021 Medications insulin syringe-needle U-100 1/2 mL 31 gauge x 15/64 syringe 1 strip by extracorporeal route 4 (four) times a day. 022 Active azelastine (ASTELIN) 137 mcg (0.1 %) nasal spray 2 Sprays by Each Nare route 2 times daily. Use in each nostril as directed 024 Active calcium carbonate-cholec alciferol 500 mg-10 mcg (400 unit) per tablet Take 1 Tablet by mouth 3 times daily. 022 Active DULoxetine (CYMBALTA) [address] capsule Take 2 Capsules by mouth 2 times daily. 023 Active fenofibrate (TRICOR) 145 mg tablet Take 1 tablet (145 mg total) by mouth 1 (one) time each day. 023 Active blood-glucose meter,continuous misc 021 Active FREESTYLE LANCETS MISC Use BID 018 Active blood sugar diagnostic (FreeStyle Lite Strips) test strip TEST BLOOD SUGAR TWICE DAILY BEFORE MEALS 019 Active BLOOD-GLUCOSE METER,CONTINUOUS MISC 021 Active ondansetron (ZOFRAN) 4 mg tablet 021 Active torsemide (DEMADEX) 20 mg tablet Take 1 tablet (20 mg total) by mouth 3 (three) times a week. 023 Active valACYclovir (VALTREX) 500 mg tablet 021 Active VITAMIN B COMPLEX ORAL Take 1 tablet by mouth. 019 Active pantoprazole (PROTONIX) 40 mg EC tablet Take 1 tablet (40 mg total) by mouth 2 (two) times a day. 180 tablet 1 025 Active ferrous sulfate 325 mg (65 mg elemental iron) tablet Take 1 tablet (325 mg total) by mouth 1 (one) time each day with breakfast. Active gabapentin (NEURONTIN) 100 mg capsule Take 1 capsule (100 mg total) by mouth 3 (three) times a day. Active omega 7-suh-eou-fish oil (Fish OiL) 1,000 (120-180) mg capsule Take by mouth 1 (one) time each day. Active blood-glucose sensor (FreeStyle Neville 2 Plus Sensor) deviceIndication s:Type II diabetes mellitus with neurological manifestations (CMS/HCC V24, CMS/HCC V28) 1 EA every 14 (fourteen) days. Box = Kit = EA 2 each 5 025 Active insulin syringe-needle U-100 1/2 mL 28 gauge syringe Use to inject Insulin three times daily 270 each 1 025 Active nicotine (NICODERM CQ) 21 mg/[address] 1 patch on the skin 1 (one) time each day at the same time. 30 each 5 025 Active insulin glargine (Lantus Solostar U-100 Insulin) 100 unit/mL (3 mL) injection pen Inject 38 units into skin daily Strength: 100 unit/mL (3 mL) 025 Active insulin lispro (HumaLOG KwikPen Insulin) 100 unit/mL injection pen Inject three times a day before meals <100: 0 units, 101-150: 12 units, 151-200: 14 units, 201-250: 16 units, 251-300: 18 units, 301-350: 20 units, 351-400: 22 units, >400: call me 025 Active alfuzosin (UROXATRAL) 10 mg 24 hr tablet Take 1 tablet (10 mg total) by mouth 1 (one) time each day. Do not crush, chew, or split. Active aluminum-magnesi um hydroxide-simeth icone (MAALOX MAX) 400-400-40 mg/5 mL suspension Take 30 mL by mouth 4 (four) times a day (before meals and nightly). 355 mL 1 Active amitriptyline (ELAVIL) 50 mg tablet Take 1 tablet (50 mg total) by mouth at bedtime. 90 each 1 Active aspirin 81 mg EC tablet Take 1 tablet (81 mg total) by mouth 1 (one) time each day. 90 each 2025 Active atorvastatin (LIPITOR) 80 mg tablet Take 1 tablet (80 mg total) by mouth at bedtime. 90 each 1 2025 Active cholecalciferol (VITAMIN D-3) 25 mcg (1,000 unit) tablet Take 1 tablet (1,000 Units total) by mouth 1 (one) time each day. 90 each 1 2025 Active cyclobenzaprine (FLEXERIL) 5 mg tablet Take 1 tablet (5 mg total) by mouth 3 (three) times a day if needed for muscle spasms. 30 tablet 1 Active docusate sodium (COLACE) 100 mg capsule Take 1 capsule (100 mg total) by mouth 2 (two) times a day. 180 each 1 Active nicotine polacrilex (NICORETTE) 2 mg gum Take 1 Each by mouth as needed for Other (Smoking Cessation). Chew 1 piece of gum as needed for smoking cessation. Can chew 1 to 2 pieces/h. Max is 24 pieces in a day. 100 each 1 Active sertraline (ZOLOFT) 25 mg tablet Take 1 tablet (25 mg total) by mouth 1 (one) time each day. 90 tablet 1 Active sertraline (ZOLOFT) 100 mg tablet Take 1 tablet (100 mg total) by mouth 1 (one) time each day. 90 tablet 1 Active oxyCODONE (ROXICODONE) 10 mg immediate release tabletIndication s:Toe infection,MGUS (monoclonal gammopathy of unknown significance),Ot her chronic pain Take 1 tablet (10 mg total) by mouth every 8 (eight) hours if needed for severe pain. Max Daily Amount: 30 mg 56 tablet Active fluticasone-salm eterol (ADVAIR DISKUS) 250-50 mcg/dose diskus inhalerIndicatio ns:Mild persistent asthma without complication Inhale 1 puff by mouth 2 (two) times a day. Rinse mouth with water after use to reduce aftertaste and incidence of candidiasis. Do not swallow. 1 each 2 Active Ventolin HFA 90 mcg/actuation inhalerIndicatio ns:Mild persistent asthma without complication Inhale 2 puffs by mouth every 6 (six) hours if needed for wheezing or shortness of breath (cough or chest tightness). 18 g 11 025 2025 Active aspirin 325 mg tablet 021 2024 Discontinued(A lternate therapy) atorvastatin (LIPITOR) 80 mg tablet Take 1 tablet (80 mg total) by mouth 1 (one) time each day. 024 2024 Discontinued(R eorder) docusate sodium (COLACE) 100 mg capsule TAKE 1 CAPSULE BY MOUTH 2 TIMES DAILY. HOLD FOR DIARRHEA 023 2024 Discontinued(R eorder) sertraline (ZOLOFT) 100 mg tablet TAKE 1 TABLET BY MOUTH EVERY DAY IN ADDITION TO A 25 MG TAB DAILY. 023 2024 Discontinued(R eorder) sertraline (ZOLOFT) 25 mg tablet TAKE 1 TABLET BY MOUTH EVERY DAY ALONG WITH 100MG 023 2024 Discontinued(R eorder) insulin glargine (Lantus U-100 Insulin) 100 unit/mL injection Inject 20 Units under the skin at bedtime. Inject daily as directed. 18 mL 1 025 2024 Discontinued cholecalciferol (VITAMIN D-3) 25 mcg (1,000 unit) tablet Take 1 tablet (1,000 Units total) by mouth 1 (one) time each day. 2024 Discontinued(R eorder) cyclobenzaprine (FLEXERIL) 5 mg tablet Take 1 tablet (5 mg total) by mouth 3 (three) times a day if needed for muscle spasms. 2024 Discontinued(R eorder) amitriptyline (ELAVIL) 25 mg tablet Take 1 tablet (25 mg total) by mouth at bedtime. 90 tablet 1 2024 Discontinued(E ntered in Error) insulin glargine (Lantus Solostar U-100 Insulin) 100 unit/mL (3 mL) injection pen Inject 47 units into skin daily Strength: 100 unit/mL (3 mL) 45 mL 1 025 2024 Discontinued(R eorder) insulin lispro (HumaLOG KwikPen Insulin) 100 unit/mL injection pen Inject 10-18 units subcutaneously three times daily 45 mL 1 2024 Discontinued(R eorder) nicotine polacrilex (NICORETTE) 2 mg gum Take 1 Each by mouth as needed for Other (Smoking Cessation). Chew 1 piece of gum as needed for smoking cessation. Can chew 1 to 2 pieces/h. Max is 24 pieces in a day. 100 each 1 025 2024 Discontinued(R eorder) doxycycline (VIBRAMYCIN) 100 mg capsule Take 1 capsule (100 mg total) by mouth 2 (two) times a day for 7 days. 14 each 025 2024 amitriptyline (ELAVIL) 50 mg tablet Take 1 tablet (50 mg total) by mouth at bedtime. 90 each 1 025 2024 Discontinued(R eorder) aspirin 81 mg EC tablet Take 1 tablet (81 mg total) by mouth 1 (one) time each day. 2024 Discontinued(A lternate therapy) aluminum-magnesi um hydroxide-simeth icone (MAALOX MAX) 400-400-40 mg/5 mL suspension Take 30 mL by mouth 4 (four) times a day (before meals and nightly). 2024 Discontinued(R eorder) oxyCODONE (ROXICODONE) 10 mg immediate release tabletIndication s:Toe infection,MGUS (monoclonal gammopathy of unknown significance),Ot her chronic pain Take 1 tablet (10 mg total) by mouth every 8 (eight) hours if needed for severe pain. Max Daily Amount: 30 mg 56 tablet 025 2024 Discontinued(R eorder) albuterol HFA (Ventolin HFA) 90 mcg/actuation inhalerIndicatio ns:Mild persistent asthma without complication Inhale 2 puffs by mouth every 6 (six) hours if needed for wheezing or shortness of breath. 8.5 g 025 2024 Discontinued Active Problems Problem Noted Date Diagnosed Date PAD (peripheral artery disease) 06/10/2025 Critical limb ischemia of right lower extremity 06/10/2025 Anxiety 06/20/2024 GERD (gastroesophageal reflux disease) Multiple myeloma 06/30/2021 Monoclonal gammopathy 02/18/2021 Overview (06/20/2024): Following [facility] hematology. Sleep related hypoxia 01/09/2021 Overview (06/20/2024): Patient had overnight oxymetery on CPAOP on 12/17/20 which shows good control and minimal oxygen desaturations. No desaturations under 88% over 5% of the study or over 5min. Hepatic steatosis 04/10/2020 Hypertension 04/10/2020 Ischemic cardiomyopathy with implantable cardioverter-defibrillator (ICD) 04/10/2020 Overview (06/20/2024): November 2019 Obesity (BMI 30.0-34.9) 04/10/2020 Pulmonary nodules 04/10/2020 Overview (06/20/2024): November 2019 ([facility]): Multiple nodules measuring < 5mm; repeat CT in 1 year Obstructive sleep apnea 06/15/2019 Overview (06/20/2024): [facility] Home Sleep Apnea Test: Date 06/11/2019; Wt 194#; BMI 30; HECTOR 9, AI 5; HI 4; Unclassified apneas 0; Obstructive apneas 16; Central apneas 5; Mixed apneas 0; hypopneas 18; average oxygen saturation 93% (lowest 86% without saturations <88% for 5% or more of study) - Obstructive Sleep Apnea - mild; mostly hypopneas and obstructive apneas; without sleep related hypoventilation by 2019 home sleep apnea test. 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 05/21/2016 Type II diabetes mellitus with ophthalmic manife stations 05/21/2016 High cholesterol 02/07/2015 Type II diabetes mellitus with renal manifestati ons 02/07/2015 Encounters Date Type Department Care Team Description 06/12/2025 Telephone Vascular Surgery [facility] [address] [phone] Hawk Pat MD 06/10/2025 3:00 PM EST Consult Vascular Surgery [facility] [address] [place] [phone] Hawk Pat MD Critical limb ischemia of right lower extremity ([facility] V24, [facility] V28) (Primary Dx); PAD (peripheral artery disease) ([facility] V24) 06/07/2025 10:15 AM EST Consult Orthopedic Surgery [facility] [address] [place] [phone] Jeet Yang DPM Bilateral femoral artery stenosis ([facility] V24) (Primary Dx); Ingrowing nail; Diabetic mononeuropathy simplex (CMS/HCC V24, CMS/HCC V28); Type II diabetes mellitus with peripheral circulatory disorder ([facility] V24, [facility] V28) 05/27/2025 Telephone [address] [phone] Klaudia Sow NP 05/23/2025 4:00 PM EST Office Visit Pulmonology [facility] [address] [phone] Klaudia Sow NP Obstructive sleep apnea (Primary Dx); Sleep related hypoxia; Mild persistent asthma without complication; Ischemic cardiomyopathy with implantable cardioverter-defibril lator (ICD); Polysubstance abuse ([facility] V24, [facility] V28); Overweight (BMI 25.0-29.9); Coronary artery disease due to calcified coronary lesion 05/22/2025 1:55 PM EST Lab Draw Station [address] Toe infection; Uncontrolled type 2 diabetes mellitus with hypoglycemia without coma ([facility] [place]24, [facility] V28) 05/22/2025 11:30 AM EST Office Visit Adult Medicine [address] [phone] Guido Burch MD Toe infection (Primary Dx); MGUS (monoclonal gammopathy of unknown significance); Other chronic pain; Uncontrolled type 2 diabetes mellitus with hypoglycemia without coma ([facility] V[facility], [facility] V28) 05/20/2025 11:30 AM EST Consult Endocrinology [address] [phone] Ines Torres PA Type 2 diabetes mellitus with other diabetic kidney complication, without long-term current use of insulin ([facility] V24, [facility] V28) (Primary Dx); Hypertension, unspecified type; High cholesterol; Infection of great toe 05/20/2025 Telephone Adult Medicine [address] [phone] Guido Burch MD 05/20/2025 Telephone [facility] [place] - [address] [phone] Guido Burch MD 05/20/2025 Telephone Adult [address] [phone] Guido Burch MD 05/16/2025 Telephone Pulmonology [address] [place] [phone] Klaudia Sow NP 05/09/2025 Results Follow-Up [address] [phone] Guido Burch MD 05/02/2025 11:25 AM EDT Lab Draw [address] Chronic systolic heart failure (CMS/HCC V24, CMS/HCC V28); Type 2 diabetes mellitus with other diabetic kidney complication, without long-term current use of insulin (CMS/HCC V24, CMS/HCC V28); High cholesterol; Stage 3 chronic kidney disease, unspecified whether stage 3a or 3b CKD (CMS/HCC V24, CMS/HCC V28); Primary hypertension; Encounter for long-term (current) use of high-risk medication; Pain of toe of right foot 05/02/2025 11:02 AM EDT - 05/02/2025 11:59 PM EDT Hospital Encounter [address] [phone] Pain of toe of right foot Discharge Disposition: Home or Self Care 05/02/2025 10:00 AM EDT Office Visit [address] [phone] Guido Burch MD Type 2 diabetes mellitus with other diabetic kidney complication, without long-term current use of insulin (CMS/HCC V24, CMS/HCC V28) (Primary Dx); Pain of toe of right foot; High cholesterol; Chronic systolic heart failure (CMS/HCC V24, CMS/HCC V28); Obstructive sleep apnea; MGUS (monoclonal gammopathy of unknown significance); Stage 3 chronic kidney disease, unspecified whether stage 3a or 3b CKD ([facility] V24, [facility] V28); Other chronic pain; Lytic bone lesion of hip 04/26/2025 Telephone Adult Medicine [address] [phone] Guido Burch MD 04/19/2025 Telephone Adult Medicine [address] [phone] Guido Burch MD from Last 3 Months Immunizations Immunization Administration Dates Next Due Influenza Quadravalent, MDCK , 0.5ml, preservative free (Flucelvax) 6mo and older 03/18/2022,04/10/2020,04/26/2019,03/13 Influenza Quadravalent, MDCK , 0.5ml, with preservative (Flucelvax) 6mo and older 06/08/2017 Pneumococcal polysaccharide 23 valent (Pneumovax 23) 2yo and older 08/08/2020 Td Tetanus diptheria (Tdvax) 7yo and older 06/25/2014 Surgical History Surgery Date Site/Laterality Comments CHOLECYSTECTOMY PROCEDURE: LAPAROSCOPIC CHOLECYSTECT ESOPHAGOGASTRODUODENOSCOPY 03/01/2017 PROCEDURE: AK EGD TRANSORAL BIOPSY SINGLE/MULTIPLE; COMMENT: [facility] - minimal gastritis. Gastric biopsy and negative for H. pylori; duodenal biopsy negative for celiac. COLONOSCOPY 03/01/2017 PROCEDURE: HISTORICAL COLONOSCOPY; COMMENT: [facility] - Findings suspicious for rectosigmoid colitis. 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 Stool studies pending. Medical History Medical History Date Comments Type II or unspecified type diabetes mellitus without mention of complication, uncontrolled DX:Type II or unspecified t ype diabetes mellitus without mention of complication, uncontrolled GERD (gastroesophageal reflu x disease) DX:GERD (gastroesophageal re flux disease) Anxiety DX:Anxiety History of Helicobacter pylo ri infection 09/03/2015 DX:History of Helicobacter p ylori infection; COMMENT: 02/17/2017 - Positive breath test suggesting continued infection. CAD (coronary artery disease) 06/05/2018 DX :CAD (coronary artery disease); COMMENT: s/p CABG in FEB 2019 Chronic systolic heart failu re ([facility] V24, [facility] V28) 04/26/2019 DX:Chronic systolic heart f ailure (HCC); COMMENT: EF 15-20% CKD (chronic kidney disease) stage 3, GFR 30-59 ml/min ([facility] V24, [facility] V28) 04/26/2019 DX:CKD (chronic kidney disea se) stage 3, GFR 30-59 ml/min (HCC) Diabetic peripheral neuropat hy ([facility] V24, [facility] V28) 05/21/2016 DX:Diabetic peripheral neur opathy (HCC) Diabetic retinopathy of both eyes ([facility] V24, [facility] V28) 05/21/2016 DX:Diabetic retinopathy of both eyes (HCC) Hepatic steatosis 04/10/2020 DX:Hepatic roberto atosis High cholesterol 02/07/2015 DX:High cholest karis History of CVA (cerebrovascu lar accident) 08/09/2016 DX:History of CVA (cerebrova scular accident) Hypertension 04/10/2020 DX:Hypertension Ischemic cardiomyopathy with implantable cardioverter-defibrillator (ICD) 04/10/2020 DX:Ischemic cardiomyo edwin with implantable cardioverter-defibrillator (ICD); COMMENT: November 2019 Marijuana use 11/02/2017 DX:Marijuana use Obesity (BMI 30.0-34.9) 04/10/2020 DX:Obesi ty (BMI 30.0-34.9) Obstructive sleep apnea 06/15/2019 DX:Obstr uctive sleep apnea; COMMENT: [facility] Home Sleep Apnea Test: Date 06/11/2019; Wt 194#; BMI 30; HECTOR 9, AI 5; HI 4; Unclassified apneas 0; Obstructive apneas 16; Central apneas 5; Mixed apneas 0; hypopneas 18; average oxygen saturation 93% (lowest 86% without saturations <88% for 5% or more of study) - Obstructive Sleep Apnea - mild; mostly hypopneas and obstructive apneas; without sleep related * Polysubstance abuse ([facility] V24, [facility] V28) 09/20/2018 DX:Polysubstance abuse ([facility]) ; COMMENT: overdose of cocaine and heroin on 05/11/18 pt noted chest pain around that time Pulmonary nodules 04/10/2020 DX:Pulmonary n odules; COMMENT: November 2019 ([facility]): Multiple nodules measuring < 5mm; repeat CT in 1 year Sleep related hypoxia 01/09/2021 DX:Sleep r elated hypoxia; COMMENT: Patient had overnight oxymetery on CPAOP on 12/17/20 which shows good control and minimal oxygen desaturations. No desaturations under 88% over 5% of the study or over 5min. Type II diabetes mellitus wi th neurological manifestations (CMS/HCC V24, CMS/HCC V28) 05/21/2016 DX:Type II diabetes mellitus with neurological manifestations (HCC) Type II diabetes mellitus wi th ophthalmic manifestations (CMS/HCC V24, CMS/HCC V28) 05/21/2016 DX:Type II diabetes mellitus with ophthalmic manifestations (HCC) Type II diabetes mellitus wi th renal manifestations (CMS/HCC V24, CMS/HCC V28) 02/07/2015 DX:Type II diabetes mellitus with renal manifestations (HCC) Family History Medical History Relation Name Comments Hypertension Father Prostate cancer Father Diabetes Grandparent Diabetes Mother Hypertension Mother Stroke Mother Diabetes Sister Relation Name Status Comments Father Grandparent Mother Sister Social History Tobacco Use Types Packs/Day Years Used Date Smoking Tobacco: Former Cigarettes 1 30 1 08/07/1988 - 2018 Smokeless Tobacco: Never Tobacco Cessation:Counseling Given: Not Answered Alcohol Use Standard Drinks/Week Comments Not Currently 0 (1 standard drink = 0.6 oz pur e alcohol) Housing Instability Answer Date Recorde d Are you worried that in the next 2 months you may not have stable housing? Patient declined 12/19/2024 Food Access & Nutrition Answer Date Rec orded Do you have access to a vari ety of food including fruits and vegetables? Patient declined 12/19/2024 Health Literacy Answer Date Recorded How often do you need to hav e someone help you when you read instructions, pamphlets, or other written material from your doctor or pharmacy? Patient declined 12/19/2024 Caregiver: How often do you need to have someone help you when you read instructions, pamphlets, or other written material from your doctor or pharmacy? Not on file 025 Financial Risk Answer Date Recorded How hard is it for you to pa y for the very basics like food, housing, medical care, and air conditioning / heating? Patient declined 12/19/2024 Transportation Answer Date Recorded Has the lack of transportati on kept you from meetings, work, or from getting things needed for daily living? Patient declined 12/19/2024 Has the lack of transportati on kept you from medical appointments or from getting medications? Patient declined 12/19/2024 Social Isolation Answer Date Recorded How often do you feel lonely or isolated from those around you? Patient declined 12/19/2024 Food Risk Answer Date Recorded Within the past 12 months we worried whether our food would run out before we got money to buy more. Patient declined 025 Within the past 12 months th e food we bought just didn't last and we didn't have money to get more. Patient declined 12/02 Dependent Care Answer Date Recorded Do you need help finding or paying for care for your loved ones. For example, exceptional children's teacher or elderly care for an older adult? Patient declined 12/19/2024 Education Answer Date Recorded Do you think completing more education or training, like finishing a GED, going to college, or learning a trade, would be helpful for you? Patient declined 12/19/2024 Employment and Income Answer Date Recor ded During the last four weeks, have you been actively looking for work? Patient declined 12/19/2024 Living Situation Answer Date Recorded What is your living situation? Unrecognized valu e 12/19/2024 Sex and Gender Information Value Date Recorded Sex Assigned at Not on file Legal Sex Male 12:47 PM EST Gender Identity Not on file Sexual Orientation Not on file Last Filed Vital Signs Vital Sign Reading Time Taken Comments Blood Pressure 130/80 06/10/2025 3:09 PM EST Pulse 72 06/10/2025 3:09 PM EST Temperature 35.8 C (96.5 F) 05/23/2025 4:10 PM EST Respiratory Rate 16 06/10/2025 3:09 PM EST Oxygen Saturation 98% 05/23/2025 4:10 PM EST Inhaled Oxygen Concentration - - Weight 78 kg (172 lb) 06/10/2025 3:09 PM EST Height 170.2 cm (5' 7 ) 06/10/2025 3:09 PM EST Body Mass Index 26.94 06/10/2025 3:09 PM EST Plan of Treatment Upcoming Encounters Date Type Department Care Team (Late st Contact Info) Description 06/21/2025 9:45 AM EST Appointment [facility] Ultrasound [address] [place] [phone] 06/25/2025 10:30 AM EST Hospital [facility] Cardiac Certified Nurse Practitioner [address] [place] [phone] Hawk Pat MD [address] [place] [phone] PAD (peripheral artery disease) ([facility] V24); Critical limb ischemia of right lower extremity ([facility] V24, [facility] V28) 06/25/2025 10:30 AM EST - 06/25/2025 11:30 AM EST [facility] Cardiac Certified Nurse Practitioner [address] [place] [phone] Hawk Pat MD [address] [place] [phone] Angiography right lower extremity [41093 (CPT )] 07/18/2025 9:00 AM EST Office Visit Orthopedic Surgery - [place] [address] [phone] Jeet Yang, DPM [address] [phone] 07/23/2025 10:35 AM EST Office Visit Pulmonology - [place] 175 [facility] [address] [place] [phone] Klaudia Sow, TATE [address] [place] [phone] 08/06/2025 11:00 AM EST Office Visit Adult Medicine [address] [phone] Guido Burch MD [address] [place] [address] 08/22/2025 9:45 AM EST Office Visit Endocrinology [address] [phone] Ines Torres PA [address] [place], [place] 10/11/2025 11:00 AM EDT Office Visit Adult Medicine [address] [phone] Guido Burch MD [address] [place] [phone] Health Maintenance Due Date Last Done Comments Naloxone Order 1974 Opioid Substance Agreement 1974 Pain Assessment 1974 Diabetes: Annual Foot Exam 1984 Diabetes: Annual Retina Eye Exam 1984 Hepatitis A Vaccines (1 of 2 - Risk 2-dose series) 1993 Hepatitis B Vaccines (1 of 3 - 19+ 3-dose series) 1993 Zoster Vaccines (1 of 2) 1993 COVID-19 Vaccine (3 - Pfizer risk series) 12/03/2020 11/05/2020, 10/15/2020 Pneumococcal Vaccine: 50+ Years (2 of 2 - PCV) 08/08/2021 08/08/2020 Lung Cancer Screening (Low Dose CT) 06/12/2022 RSV Immunization Adult Patients (1 - Risk 50-74 years 1-dose series) 2024 DTaP,Tdap,and Td Vaccines (2 - Td or Tdap) 06/25/2024 06/25/2014 Influenza Vaccine (#1) 2025 , 04/10/2020, 04/26/2019, Additional history exists Diabetes: Blood Sugar Control Test (HGBA1C) 10/31/2025 05/02/2025, 12/13/2024, 12/09/2024, Additional history exists Social Influencers of Health Screening 12/19/2025 12/19/2024 Diabetes: Annual Urine Albumin-Creatinine Ratio (uACR) 05/02/2026 05/02/2025, 02/18/2021 Drug Screen 05/02/2026 05/02/2025 Diabetes: Annual GFR (Glomerular Filtration Rate) 06/08/2026 06/08/2025, 05/02/2025, 03/27/2025, Additional history exists Hypertension/CHF/CAD Annual BMP Blood Test 06/08/2026 06/08/2025, 05/02/2025, 03/27/2025, Additional history exists Colorectal Cancer Screening: Colonoscopy 03/01/2027 03/01/2017 Cholesterol Screening (Lipid Panel) 05/02/2030 05/02/2025, 11/18/2023 Hepatitis C Screening Completed 12/16/2024 Depression Screening Completed 12/20/2024, 10/18/19 HIB Vaccines Aged Out No longer eligi ble based on patient's age to complete this topic HIV Screening Discontinued HPV Vaccines Aged Out No longer eligi ble based on patient's age to complete this topic IPV Vaccines Aged Out No longer eligi ble based on patient's age to complete this topic MMR Vaccines Aged Out No longer eligi ble based on patient's age to complete this topic Meningococcal ACWY Vaccine Aged Out N o longer eligible based on patient's age to complete this topic Meningococcal B Vaccine Aged Out No l onger eligible based on patient's age to complete this topic RSV Immunization Patients Under 20 months Aged Out No longer eligible based on patient's age to complete this topic Varicella Vaccines Aged Out No longer eligible based on patient's age to complete this topic Procedures Procedure Name Priority Date/Time Associated Diagnosis Comments CBC WITH AUTO DIFFERENTIAL Routine 05/22/2025 2:01 PM EST Toe infection Uncontrolled type 2 diabetes mellitus with hypoglycemia without coma (CMS/HCC V24, CMS/[facility] V28) CBC AND DIFFERENTIAL Routine 05/22/2025 2:01 PM EST Toe infection Uncontrolled type 2 diabetes mellitus with hypoglycemia without coma (CMS/HCC V24, CMS/HCC V28) SEDIMENTATION RATE Routine 05/22/2025 2: 01 PM EST Toe infection Uncontrolled type 2 diabetes mellitus with hypoglycemia without coma (CMS/HCC V24, CMS/[facility] V28) URIC ACID Routine 05/02/2025 11:34 AM EDT Pain of toe of right foot COMPREHENSIVE METABOLIC PANEL Routine 05/02/2025 11:34 AM EDT Type 2 diabetes mellitus with other diabetic kidney complication, without long-term current use of insulin ([facility] V24, [facility] V28) Stage 3 chronic kidney disease, unspecified whether stage 3a or 3b CKD ([facility] V24, [facility] V28) Primary hypertension Encounter for long-term (current) use of high-risk medication LIPID PANEL WITH REFLEX TO DIRECT LDL Routine 05/02/2025 11:34 AM EDT High cholesterol HEMOGLOBIN A1C Routine 05/02/2025 11:34 AM EDT Type 2 diabetes mellitus with other diabetic kidney complication, without long-term current use of insulin ([facility] V24, [facility] V28) B-TYPE NATRIURETIC PEPTIDE Routine 05/02/2025 11:34 AM EDT Chronic systolic heart failure ([facility] [place], [facility] V28) OPIATES CONFIRMATION, URINE Routine 05/02/2025 11:22 AM EDT Encounter for long-term (current) use of high-risk medication THC, URINE, CONFIRMATION Routine 05/02/2025 11:22 AM EDT Encounter for long-term (current) use of high-risk medication DRUG ABUSE SCREEN EXPANDED WITH REFLEX CONFIRMATION, URINE Routine 05/02/2025 11:22 AM EDT Encounter for long-term (current) use of high-risk medication MICROALBUMIN CREATININE URINE RATIO Routine 05/02/2025 11:22 AM EDT Type 2 diabetes mellitus with other diabetic kidney complication, without long-term current use of insulin ([facility] [place], [facility] V28) XR TOES 2+ VIEWS RIGHT Routine 05/02/2025 11:09 AM EDT Pain of toe of right foot HM DEPRESSION SCREENING Routine 10/18/2023 COLONOSCOPY Routine 03/01/2017 from Last 3 Months or Most Recently Relevant to Health Maintenance Results * (ABNORMAL) CBC auto differential (05/22/2025 2:01 PM EST) [facility] WBC 10.0 4.8 - 10.8 K/mcL LAB HEMETOLOGY METHOD 05/22/2025 4:36 PM [facility] RBC 4.30(L) 4.50 - 5.50 M/mcL LAB HEMETOLOGY METHOD 05/22/2025 4:36 PM [facility] Hemoglobin 12.4(L) 13.5 - 17.5 g/dL LAB HEMETOLOGY METHOD 05/22/2025 4:36 PM [facility] Hematocrit 37.4(L) 42.0 - 54.0 % LAB HEMETOLOGY METHOD 05/22/2025 4:36 PM [facility] MCV 88.0 79.0 - 98.0 FL LAB HEMETOLOGY METHOD 05/22/2025 4:36 PM [facility] MCH 29.2 27.0 - 32.0 pcg LAB HEMETOLOGY METHOD 05/22/2025 4:36 PM [facility] MCHC 33.2 32.0 - 37.0 g/dL LAB HEMETOLOGY METHOD 05/22/2025 4:36 PM [facility] RDW 12.7 11.0 - 15.0 % LAB HEMETOLOGY METHOD 05/22/2025 4:36 PM [facility] Platelets 305 130 - 400 K/mcL LAB HEMETOLOGY METHOD 05/22/2025 4:36 PM [facility] MPV 11.0 7.0 - 11.0 FL LAB HEMETOLOGY METHOD 05/22/2025 4:36 PM [facility] NRBC 0.0 <1.0 % LAB HEMETOLOGY METHOD 05/22/2025 4:36 PM [facility] NRBC Absolute 0.00 <0.10 K/mcL LAB HEMETOLOGY METHOD 05/22/2025 4:36 PM [facility] Neutrophils Relative 66.7 % LAB HEMETOLOGY METHOD 05/22/2025 4:36 PM [facility] Lymphocytes Relative 26.6 % LAB HEMETOLOGY METHOD 05/22/2025 4:36 PM [facility] Monocytes Relative 4.6 % LAB HEMETOLOGY METHOD 05/22/2025 4:36 PM [facility] Eosinophils Relative 1.4 % LAB HEMETOLOGY METHOD 05/22/2025 4:36 PM [facility] Basophils Relative 0.5 % LAB HEMETOLOGY METHOD 05/22/2025 4:36 PM [facility] Immature Granulocytes Relative 0.2 % LAB HEMETOLOGY METHOD 05/22/2025 4:36 PM [facility] Neutrophils Absolute 6.66 1.50 - 7.00 K/mcL LAB HEMETOLOGY METHOD 05/22/2025 4:36 PM [facility] Lymphocytes Absolute 2.66 1.00 - 5.00 K/mcL LAB HEMETOLOGY METHOD 05/22/2025 4:36 PM [facility] Monocytes Absolute 0.46 0.20 - 1.00 K/mcL LAB HEMETOLOGY METHOD 05/22/2025 4:36 PM [facility] Eosinophils Absolute 0.14 0.00 - 0.50 K/mcL LAB HEMETOLOGY METHOD 05/22/2025 4:36 PM [facility] Basophils Absolute 0.05 0.00 - 0.20 K/mcL LAB HEMETOLOGY METHOD 05/22/2025 4:36 PM [facility] Immature Granulocytes Absolute 0.02 0.00 - 0.03 K/mcL LAB HEMETOLOGY METHOD 05/22/2025 4:36 PM EST [facility] Blood Venous blood specimen / Unknown Venipuncture / Unknown 05/22/2025 2:01 PM EST 05/22/2025 2:01 PM EST us Guido Burch MD LAB BLOOD ORDERABLES Final Resu lt [facility] [address] [place] [address], [place] [phone] * (ABNORMAL) Sedimentation rate (05/22/2025 2:01 PM EST) Pathologist [facility] Sed Rate 69(H) 0 - 15 mm/hr LAB HEMETOLOGY METHOD 05/22/2025 4:47 PM EST [facility] Blood Venous blood specimen / Unknown Venipuncture / Unknown 05/22/2025 2:01 PM EST 05/22/2025 2:01 PM EST us Guido Burch MD LAB BLOOD ORDERABLES Final Resu lt Performing Organization Address City/[facility]/ZIP Co de Phone Number [facility] [address] [place] [address], [place] [phone] * (ABNORMAL) Lipid panel with reflex to direct LDL (05/02/2025 11:34 AM EDT) Cholesterol 283(H) 0 - 200 mg/dL LAB CHEMISTRY METHOD 05/02/2025 3:42 PM EDT [facility] Triglycerides 344(H) 0 - 150 mg/dL LAB CHEMISTRY METHOD 05/02/2025 3:42 PM EDT [facility] HDL 49 >=40 mg/dL LAB CHEMISTRY METHOD 05/02/2025 3:42 PM EDT [facility] LDL Calculated 165(H) 0 - 100 mg/dL LAB CHEMISTRY METHOD 05/02/2025 3:42 PM EDT [facility] Comment:Estimated LDL Calcul ated using equation: Total cholesterol - HDL cholesterol - (Triglycerides/5) VLDL Cholesterol Scott 68.8 mg/dL LAB CHEMISTRY METHOD 05/02/2025 3:42 PM EDT [facility] Non HDL Chol. (LDL+VLDL) 234(H) <145 mg/dL LAB CHEMISTRY METHOD 05/02/2025 3:42 PM EDT [facility] Chol/HDL Ratio 5.8(H) 0.0 - 4.4 LAB CHEMISTRY METHOD 05/02/2025 3:42 PM EDT [facility] Blood Venous blood specimen / Unknown Venipuncture / Unknown 05/02/2025 11:34 AM EDT 05/02/2025 11:34 AM EDT us Guido Burch MD LAB BLOOD ORDERABLES Final Resu lt Performing Organization Address City/[facility]/ZIP Co de Phone Number [facility] [address] [place] [address], [place] [phone] * Uric acid (05/02/2025 11:34 AM EDT) Uric Acid 5.6 3.7 - 9.2 mg/dL LAB CHEMISTRY METHOD 05/02/2025 3:42 PM EDT [facility] Blood Venous blood specimen / Unknown Venipuncture / Unknown 05/02/2025 11:34 AM EDT 05/02/2025 11:34 AM EDT us Guido Burch MD LAB BLOOD ORDERABLES Final Resu lt [facility] [address] [place] [address], [place] [phone] * (ABNORMAL) B-type natriuretic peptide (05/02/2025 11:34 AM EDT) BNP 109(H) <=100 pcg/mL LAB CHEMISTRY METHOD 05/02/2025 2:53 PM EDT [facility] Blood Venous blood specimen / Unknown Venipuncture / Unknown 05/02/2025 11:34 AM EDT 05/02/2025 11:34 AM EDT Guido Burch MD LAB BLOOD ORDERABLES Final Resu lt Performing Organization Address [facility] Co de Phone Number [facility] [address] [place] [address], [place] [phone] * (ABNORMAL) Hemoglobin A1c (05/02/2025 11:34 AM EDT) Hemoglobin A1C 12.0(H) <6.5 % LAB CHEMISTRY METHOD 05/02/2025 3:27 PM EDT [facility] Mean Bld Glu Estim. 298 mg/dL LAB CHEMISTRY METHOD 05/02/2025 3:27 PM EDT [facility] Blood Venous blood specimen / Unknown Venipuncture / Unknown 05/02/2025 11:34 AM EDT 05/02/2025 11:34 AM EDT us Guido Burch MD LAB BLOOD ORDERABLES Final Resu lt Performing Organization Address [facility] de Phone Number [facility] [address] [place] [address], [place] [phone] * (ABNORMAL) Comprehensive metabolic panel (05/02/2025 11:34 AM EDT) Sodium 135 133 - 145 mmol/L LAB CHEMISTRY METHOD 05/02/2025 3:42 PM EDT [facility] Potassium 4.1 3.5 - 5.5 mmol/L LAB CHEMISTRY METHOD 05/02/2025 3:42 PM EDT [facility] Chloride 102 96 - 110 mmol/L LAB CHEMISTRY METHOD 05/02/2025 3:42 PM [facility] CO2 23 21 - 32 mmol/L LAB CHEMISTRY METHOD 05/02/2025 3:42 PM [facility] Anion Gap 10 3 - 11 LAB CHEMISTRY METHOD 05/02/2025 3:42 PM [facility] Glucose 300(H) 70 - 100 mg/dL LAB CHEMISTRY METHOD 05/02/2025 3:42 PM [facility] BUN 20 5 - 25 mg/dL LAB CHEMISTRY METHOD 05/02/2025 3:42 PM [facility] Creatinine 1.35(H) 0.70 - 1.30 mg/dL LAB CHEMISTRY METHOD 05/02/2025 3:42 PM [facility] eGFR 64 >=60 mL/min/1. 73m2 LAB CHEMISTRY METHOD 05/02/2025 3:42 PM [facility] Comment:Calculation based on the Chronic Kidney Disease Epidemiology Collaboration (CKD-EPI) equation refit without adjustment for race. BUN/Creatinine Ratio 14.8 LAB CHEMISTRY METHOD 05/02/2025 3:42 PM [facility] Calcium 9.1 8.5 - 10.5 mg/dL LAB CHEMISTRY METHOD 05/02/2025 3:42 PM [facility] AST (SGOT) 31 10 - 42 unit/L LAB CHEMISTRY METHOD 05/02/2025 3:42 PM [facility] ALT (SGPT) 38 10 - 60 unit/L LAB CHEMISTRY METHOD 05/02/2025 3:42 PM [facility] Alkaline Phosphatase 111 42 - 121 unit/L LAB CHEMISTRY METHOD 05/02/2025 3:42 PM [facility] Total Protein 7.5 6.0 - 8.0 g/dL LAB CHEMISTRY METHOD 05/02/2025 3:42 PM [facility] Albumin 4.0 3.2 - 5.0 g/dL LAB CHEMISTRY METHOD 05/02/2025 3:42 PM EDT [facility] Total Bilirubin 0.3 0.0 - 1.4 mg/dL LAB CHEMISTRY METHOD 05/02/2025 3:42 PM EDT [facility] Blood Venous blood specimen / Unknown Venipuncture / Unknown 05/02/2025 11:34 AM EDT 05/02/2025 11:34 AM EDT us Guido Burch MD LAB BLOOD ORDERABLES Final Resu lt [facility] [address] [place] [address], * (ABNORMAL) Drug abuse screen expanded with reflex confirmation, urine (05/02/2025 11:22 AM EDT) Amphetamine Screen, Ur Negative Negative LAB CHEMISTRY METHOD 5 4:59 PM EDT [facility] Comment:Certain OTC medicati ons containing ephedrine, phenylephrine, pseudoephedrine and phenylpropanolamine can cause false positive results. Barbiturate Screen, Ur Negative Negative LAB CHEMISTRY METHOD 5 4:59 PM T [facility] Benzodiazepine Screen, Ur Negative Negative LAB CHEMISTRY METHOD 5 4:59 PM EDT [facility] Cocaine Screen, Ur Negative Negative LAB CHEMISTRY METHOD 5 4:59 PM EDT [facility] Opiate Screen, Ur Positive(A ) Negative LAB CHEMISTRY METHOD 5 4:59 PM T [facility] Cannabinoid (THC) Screen, Ur Positive(A ) Negative LAB CHEMISTRY METHOD 5 4:59 PM T [facility] Comment:Specimens from patie nts taking pantoprazole sodium (Protonix) have been shown to produce false positive results. Fentanyl, Ur Negative Negative LAB CHEMISTRY METHOD 5 4:59 PM EDT [facility] Oxycodone Screen, Ur Positive(A ) Negative LAB CHEMISTRY METHOD 4:59 PM EDT [facility] Urine Urine specimen obtained by clean catch procedure / Unknown Non-blood Collection / Unknown 05/02/2025 11:22 AM EDT 05/02/2025 11:22 AM EDT Narrative [facility] - 05/02/2025 4:59 PM EDT Assay cutoffs: Amphetamines 1000 ng/mL Barbiturates 200 ng/mL Benzodiazepines 200 ng/mL Cocaine 300 ng/mL Fentanyl 1 ng/mL Opiates 300 ng/mL Oxycodone 100 ng/mL THC 50 ng/mL Semi-quantitative assay for screening purposes only. Unconfirmed screening result should not be used for non-medical purposes. *POSITIVE RESULTS ARE AUTOMATICALLY SENT FOR ALTERNATE METHOD CONFIRMATION* us Guido Burch MD LAB URINE ORDERABLES Final Resu lt [facility] [address] [place] [address], * (ABNORMAL) Opiates confirmation, urine (05/02/2025 11:22 AM EDT) Morphine Confirm, Urine Negative Negative ng/mL 05/07/2025 6:58 PM EST [facility] Codeine Confirm, Urine Negative Negative ng/mL 05/07/2025 6:58 PM EST [facility] Hydrocodone Confirm, Urine Negative Negative ng/mL 05/07/2025 6:58 PM EST [facility] Hydromorphone Confirm, Urine Negative Negative ng/mL 05/07/2025 6:58 PM EST [facility] Oxycodone Confirm, Urine 3983(H) Negative ng/mL 05/07/2025 6:58 PM EST [facility] Oxymorphone Confirm, Urine 1253(H) Negative ng/mL 05/07/2025 6:58 PM EST [facility] Creatinine 253(H) 20 - 250 mg/dL 05/07/2025 6:58 PM EST [facility] Adulterants Negative 05/07/2025 6:58 PM EST [facility] Comment: Confirmation (LC/MS/MS) Decision Limits Morphine 25 ng/mL Codeine 25 ng/mL Hydrocodone 25 ng/mL Hydromorphone 25 ng/mL Oxycodone 25 ng/mL Oxymorphone 25 ng/mL Adulterant Decision Limit: General Oxidants 200 ug/mL The adulterant assay tests for General Oxidants, including Chromates and Nitrites. Adulterants are substances either ingested or added directly to a urine specimen to prevent the detection of drug use. If applicable, any drug confirmation testing reported here was developed and the performance characteristics determined by [facility]. This confirmation testing has not been cleared or approved by the FDA. The laboratory is regulated under CLIA as qualified to perform high-complexity testing. This test is used for patient testing purposes. It should not be regarded as investigational or for research. Test performed at [facility], [address] , [place] [address] Shilpa Osorio MD, PhD - Advanced Practice Professional Urine Urine specimen obtained by clean catch procedure / Unknown Non-blood Collection / Unknown 05/02/2025 11:22 AM EDT 05/02/2025 4:59 PM EDT us Guido Burch MD LAB URINE ORDERABLES Final Resu lt [facility] [address] [place] [address] * (ABNORMAL) Microalbumin creatinine urine ratio (05/02/2025 11:22 AM EDT) Creatinine, Urine 322.0 mg/dL LAB CHEMISTRY METHOD 05/02/2025 4:21 PM EDT [facility] Microalb, Ur 1,050.0(H ) 0.0 - 29.0 mg/L LAB CHEMISTRY METHOD 05/02/2025 4:21 PM EDT [facility] Microalb/Crea t Ratio 326(H) <30 mg/g creat LAB CHEMISTRY METHOD 05/02/2025 4:21 PM EDT [facility] Urine Urine specimen obtained by clean catch procedure / Unknown Non-blood Collection / Unknown 05/02/2025 11:22 AM EDT 05/02/2025 11:22 AM EDT us Guido Burch MD LAB URINE ORDERABLES Final Resu lt [facility] [address] [place] [address], * (ABNORMAL) THC, urine, confirmation (05/02/2025 11:22 AM EDT) Tetrahydrocannabinoid (THC) >1500 Negative ng/mL 05/08/2025 2:50 PM EST [facility] Tetrahydrocannabinoid (THC)/Creatinine Ratio 2295 2:50 PM EST [facility] Creatinine 255(H) 20 - 250 mg/dL 05/08/2025 2:50 PM EST [facility] Adulterants Negative 05/08/2025 2:50 PM EST [facility] Comment: The urine THC/creatinine ratio is the best monitor to determine the possibility of continued drug usage. With abstinence, the ratio should decrease within one week by a factor of two or more. Confirmation (GC/MS) Decision Limit THC ([id number]) 3 ng/mL Adulterant Decision Limit: General Oxidants 200 ug/mL The adulterant assay tests for General Oxidants, including Chromates and Nitrites. Adulterants are substances either ingested or added directly to a urine specimen to prevent the detection of drug use. If applicable, any drug confirmation testing reported here was developed and the performance characteristics determined by [facility]. This confirmation testing has not been cleared or approved by the FDA. The laboratory is regulated under CLIA as qualified to perform high-complexity testing. This test is used for patient testing purposes. It should not be regarded as investigational or for research. Test performed at [facility], [address], [place] [address] Shilpa Osorio MD, PhD - Advanced Practice Professional Urine Urine specimen obtained by clean catch procedure / Unknown Non-blood Collection / Unknown 05/02/2025 11:22 AM EDT 05/02/2025 4:59 PM EDT us Guido Burch MD LAB URINE ORDERABLES Final Resu lt [facility] [address] [place] [address] * XR Toes 2+ Views Right (05/02/2025 11:09 AM EDT) Anatomical Region Laterality Modality Lower Extremities, Toes Left Radiogra phic Imaging 05/03/2025 10:2 2 AM EDT Impressions 05/03/2025 10:23 AM EDT No acute findings. -------- FINAL REPORT -------- Dictated By: Geri Woods Dictated Date: 05/03/2025 10:22 ET Assigned Physician: Geri Woods Reviewed and Electronically Signed By: Geri Woods Signed Date: 05/03/2025 10:23 ET Workstation ID: [id number] Transcribed By: Self Edit Transcribed Date: 05/03/2025 10:22 ET Narrative 05/03/2025 10:23 AM EDT Right Toes-3 Views HISTORY: Toe pain x2 weeks. FINDINGS: There is no fracture or dislocation. There are no bony destructive lesions. There are no degenerative changes. There is atherosclerosis. Procedure Note Geri Woods MD - 05/03/2025 Right Toes-3 Views HISTORY: Toe pain x2 weeks. FINDINGS: There is no fracture or dislocation. There are no bonydestructive lesions. There are no degenerative changes. There is atherosclerosis. IMPRESSION: No acute findings. -------- FINAL REPORT -------- Dictated By: Geri Woods Dictated Date: 05/03/2025 10:22 ET Assigned Physician: Geri Woods Reviewed and Electronically Signed By: Geri Woods Signed Date: 05/03/2025 10:23 ET Workstation ID: [id number] Transcribed By: Self Edit Transcribed Date: 05/03/2025 10:22 ET Guido Burch MD IMG XR PROCEDURES Final Result * Depression Screening (10/18/2023) Depression Screening abstracted Historical Provider HEALTH MAINTENANCE Final Result * Colonoscopy (03/01/2017) Colonoscopy No interpretation , abstracted Anatomical Region Laterality Modality Other Historical Provider HEALTH MAINTENANCE Final Result from Last 3 Months or Most Recently Relevant to Health Maintenance Insurance [facility] Care Teams 

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
--- OUTSIDE RECORDS SUMMARY | 2025-06-17 17:54 | XMS_ITS | Clinical Summary ---
Author Organization [facility] Address [address] [place] [address] Care Team Providers Care C++ Professor Name Role Phone Marcin QUINTERO MD, Guido Molina Primary Care Provider [phone] Allergies Active Allergy Reactions Criticality Noted Date Comments Egg Nausea 08/23/2023 Empagliflozin Unknown 03/13/2018 Meperidine Agitation,Other (see comments) High 12/30/2014 Other reaction(s): OTHER anxiety anxiety Other reaction(s): OTHER anxiety anxiety Other reaction(s): OTHER anxiety Medications albuterol (PROAIR HFA,VENTOLIN HFA) 90 mcg inhaler Inhale 2 puffs by mouth every 4 hours as needed for shortness of breath or wheezing. 07/18/19 24 Active amitriptyline (ELAVIL) 25 mg tablet Take 50 mg by mouth nightly. Active atorvastatin (LIPITOR) 80 mg tablet Take 80 mg by mouth daily. 07/21/19 24 Active azelastine (ASTELIN) 137 mcg (0.1 %) nasal spray Administer 2 sprays into each nostril 2 times a day. Active calcium carbonate-vitamin D3 500 mg-400 units tablet Take 1 tablet by mouth 3 times a day with meals. 07/12/19 24 Active carvediloL (COREG) 12.5 mg tablet Take 12.5 mg by mouth 2 times a day with meals. 07/12/19 24 Active docusate sodium (COLACE) 100 mg capsule Take 100 mg by mouth 2 times a day. 07/15/[address] (PROTONIX) 40 mg tablet Take 40 mg by mouth once a day. Active aspirin 81 mg EC tablet Take 81 mg by mouth once a day. Active alfuzosin (UROXATRAL) 10 mg 24 hr tablet Take 10 mg by mouth every night. Active acetaminophen (TYLENOL) 325 mg tablet Take 3 tablets (975 mg total) by mouth every 8 hours. 11/18/19 Active alum-mag hydroxide-simeth (MAALOX PLUS XS) 400-400-40 mg/5 mL suspension Take 15 mL by mouth 3 times a day with meals. 11/18/19 Active cyclobenzaprine (FLEXERIL) 5 mg tablet Take 1 tablet (5 mg total) by mouth 3 times a day as needed for muscle spasms. 11/18/19 Active lidocaine (LIDODERM) 5% patch Apply 1 patch topically to the affected area once a day. Remove and discard patch within 12 hours or as directed. 11/18/19 Active senna (SENOKOT) 8.6 mg tablet Take 1 tablet (8.6 mg total) by mouth once a day. 11/18/19 Active polyethylene glycol 3350 (MIRALAX) 17 gram packet Take 1 packet (17 g total) by mouth daily as needed for constipation. Mix powder in 4 to 8 oz of water, juice, coffee, or tea prior to administration . 11/18/19 Active oxyCODONE-acetamin ophen (PERCOCET) 10-325 mg per tablet Take 1 tablet by mouth 2 times a day as needed for pain. Active nicotine (NICODERM CQ) 21 mg/[address] 1 patch on the skin every 24 hours. Active nicotine polacrilex (NICORETTE) [address] 2 mg between cheek and gums as needed for nicotine cravings. Active hydrocortisone 1% cream Apply topically to the affected area 2 times a day. 28.35 g 12/10/2024 2:14 PM EDT 12/11/[address] (CYMBALTA) 20 mg capsule Take 2 capsules (40 mg total) by mouth 2 times a day. 120 capsule 12/10/2024 2:14 PM EDT 12/11/19 25 Active Freestyle lancets 28 gauge Use to test 5 times daily. 100 each 12/10/2024 6:07 PM EDT 12/11/19 25 Active Freestyle Lite test strips Use to test 5 times daily. 100 strip 12/10/2024 6:07 PM EDT 12/11/19 25 Active FreeStyle [place] Lite meter Use to test blood sugars as directed. 1 each 12/10/2024 6:07 PM EDT 12/11/19 25 Active alcohol swabs (Alcohol Pads) pads, medicated Use up to 8 times daily with meter checks 200 each 12/10/2024 6:07 PM EDT 12/11/19 25 Active pen needle (BD Ultra-Fine Patricia) 4 mm x 32 g Use up to 5x daily with insulin 200 each 12/10/2024 6:07 PM EDT 12/11/19 25 Active insulin glargine (LANTUS SOLOSTAR) 100 unit/mL insulin pen Inject 20 Units under the skin nightly. 15 mL 3 12/11/19 25 Active insulin lispro U-100 (100 units/mL) insulin pen Inject 3 Units under the skin 3 times a day with meals. Adjust as directed per scale. In addition to 3 units with meals, administer a sliding scale as below before meals. Blood Sugar Low Dose < 149 No Insulin 150-199 1 units 200-249 2 units 250-299 3 units 300-349 4 units >/= 350 5 units and call LIP promptly 15 mL 12/10/2024 6:07 PM EDT 12/11/19 25 Active ondansetron (ZOFRAN ODT) 4 mg disintegrating tablet Dissolve 1 tablet (4 mg total) in the mouth every 8 hours as needed for nausea or vomiting. 21 tablet 12/17/19 25 Active lidocaine (LIDODERM) 5% patch Apply 1 patch topically to the affected area once a day. Remove and discard patch within 12 hours or as directed. 10 patch 12/17/19 25 Active oxyCODONE IR (ROXICODONE) 10 mg tablet Take 10 mg by mouth 2 times daily. 12/14/19 25 Active insulin glargine-yfgn (SEMGLEE - 100 units/mL) 100 unit/mL (3 mL) insulin pen injection Inject under the skin. 04/03/20 24 Active FreeStyle [place] 2 Plus Sensor device by Other route every 14 (fourteen) days. 12/14/19 25 Active cephalexin (KEFLEX) 500 mg capsule Take 1 capsule (500 mg total) by mouth 4 times a day for 7 days. 28 capsule 05/13/20 25 025 cephalexin (KEFLEX) 250 mg capsule Take 2 capsules (500 mg total) by mouth 4 times a day for 7 days. 56 capsule 06/08/20 25 025 Active Problems Problem Noted Date Diagnosed Date [...] Upon discharge: - Continue to work with FAMILY ASSISTANT - Provided with medications as [id number] prior to DC - informed PCP to [...] edema noted on exam. Per notes from [facility] in September 2023: Echo showed an EF [...] edema noted on exam. Per notes from [facility] in September 2023: Echo showed an EF [...] denies SI. At last documented visit to [facility], he was evaluated by OFFBEARER SEWER PIPE and psychiatry and they deemed him not to be a risk for suicide. At this time, Psychiatry recommended stopping his sertraline -Continue Duloxetine 40 mg twice daily. -Continue Amitriptyline 25 mg nightly. -Hold on PRN ativan since patient is not endorsing anxiety at this time. Unclear where he is getting this filled as well, since per [facility] it has not been filled since 06/2023. -Palliative care consult on today Assessment & Plan (11/05/2023 12:09 AM EDT): Home medications: Duloxetine 40 mg twice daily, Amitriptyline 25 mg nightly, lorazepam 0.5 mg PRN twice daily. Patients son about a year ago and patient is now alone and homeless. He is also going through divorce. He denies SI. At last documented visit to [facility], he was evaluated by [employer] [employer] [facility] and psychiatry and they deemed him not to be a risk for suicide. At this time, Psychiatry recommended stopping his sertraline -Continue Duloxetine 40 mg twice daily. -Continue Amitriptyline 25 mg nightly. -Hold on PRN ativan since patient is not endorsing anxiety at this time. Unclear where he is getting this filled as well, since per [facility] it has not been filled since 06/2023. [...] got his last round of medication at [place] when he got chemo in October. On [...] got his last round of medication at [facility] when he got chemo in October. He [...] sugar at meals and bedtime. -Consult inpatient farm contractor buyer due to hyperglycemia (appears he has been admitted numerous times for this). -Consult diabetes team for recommendations. -Check A1C. -Monitor for signs of hypoglycemia and hyperglycemia. Homelessness 11/04/2023 Assessment & Plan (11/05/2023 4:14 PM EDT): Patient is going through a divorce. He use to reside with a friend in [place] but no longer. He says he lives on the streets. -Consult social work Assessment & Plan (11/04/2023 11:59 PM EDT): Patient is going through a divorce. He use to reside with a friend in [place] but no longer. He says he lives on the streets. 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 Villasenor at [facility]. Per his outside records he was found [...] of 387. IgG was within normal limits. [place]rtanna free light chain level 65.4 with free [...] Skeletal survey in May 2023 (performed at [facility]) reportedly showed evidence of bilateral small lesions [...] visit, start PO iron (message left for [facility]) Assessment & Plan (11/14/2023 10:20 AM EDT): Home Medications: Lenalidomide 15 mg daily. Gabapentin 400 mg twice a day. Duloxetine 40 mg twice daily. Patient is followed by Dr. Villasenor in [place] for IgG kappa MM. No longer on active chemo though gets denosumab Q 3 mos. He was discharged from [facility] in September and appears plain film [...] wnl - urine light chains showing elevated Orrtanna/Lambda ratio of 9.51 - Oncology consulted regarding [...] Patient is followed by Dr. Villasenor in [place]. He states his last chemo was in October. His next is in November. He is homeless with no transportation. He was discharged from [facility] in September and appears Plain film [...] Atorvastatin 80 mg daily. CAD with CABG 2018. Continued home medications. Follow-up with his yarn mercerizer operator in outpatient setting. Torsemide per [facility] section. [...] 2019. Continued home medications. Follow-up with his yarn mercerizer operator in outpatient setting. Torsemide per [facility] section. - Continue coreg 12.5mg BID - Continue aspirin 81 mg daily - Continue atorvastatin 80 mg nightly Assessment & Plan (12/08/2024 2:03 PM EDT): Home Medications: Coreg 12.5 mg twice daily, Torsemide 20 mg daily. Aspirin 81 mg daily. Plavix . Atorvastatin 80 mg daily. CAD with CABG 2019. Continued home medications. Follow-up with his yarn mercerizer operator in outpatient setting. Torsemide per [facility] section. - Continue coreg 12.5mg BID - Continue aspirin 81 mg daily - Continue atorvastatin 80 mg nightly Assessment & Plan (12/07/2024 6:17 PM EDT): Home Medications: Coreg 12.5 mg twice daily, Torsemide 20 mg daily. Aspirin 81 mg daily. Plavix . Atorvastatin 80 mg daily. CAD with CABG 2019. Continued home medications. Follow-up with his yarn mercerizer operator in outpatient setting. Torsemide per [facility] section. - Continue coreg 12.5mg BID - Continue aspirin 81 mg daily - Continue atorvastatin 80 mg nightly Assessment & Plan (11/06/2023 1:55 PM EDT): Home Medications: Coreg 12.5 mg twice daily, Torsemide 20 mg daily. Aspirin 81 mg daily. Plavix . Atorvastatin 80 mg daily. CAD with CABG 2019. Per notes from [facility] in September 2023: Echo showed an EF of 55% with mild left atrial enlargement normal diastolic function. At [facility], they discontinued his Plavix due to epistatxis and stent placement was greater than 1 year ago, dual antiplatelet therapy has put him at risk for epistaxis/GI bleed -Continue home medications. -Follow-up with his yarn mercerizer operator in outpatient setting -Torsemide per [facility] section Assessment & Plan (11/04/2023 11:51 PM EDT): Home Medications: Coreg 12.5 mg twice daily, Torsemide 20 mg daily. Aspirin 81 mg daily. Plavix . Atorvastatin 80 mg daily. CAD with CABG 2018. Per notes from [facility] in September 2023: Echo showed an EF of 55% with mild left atrial enlargement normal diastolic function Appears at [facility], they discontinued his Plavix due to epistatxis and stent placement was greater than 1 year ago, dual antiplatelet therapy has put him at risk for epistaxis/GI bleed -Continue Coreg -Hold Torsemide 20 mg due to [facility]. -Continue Atorvastatin 80 mg nightly. -Continue Aspirin 81 mg daily. -Hold on Plavix due to it being discontinued at last documented hospital visit. -Follow-up with his yarn mercerizer operator Gastroesophageal reflux disease 03/30/2021 Assessment & Plan [...] 04/10/2020 Obstructive sleep apnea 06/15/2019 Overview (11/04/2023): [facility] Home Sleep Apnea Test: Date 06/11/2019; [...] hypoventilation by 2019 home sleep apnea test. [facility] Home Sleep Apnea Test: Date 06/11/2019; [...] hypoventilation by 2019 home sleep apnea test. Assessment & Plan [...] regimen -Check LFTs -Check a lipid panel Resolved Problems Problem Noted Date Diagnosed Date [...] Orthostatic vitals negative for orthostatic hypotension. Intact aeywqb-qt-[id number], rapid alternating movements and jeos-ch-prpc on exam, remainder of neuro exam nml thus minimal concern for basilar stroke. Suspect sx more likely medication-induced iso opioids - Continue to monitor - Trial meclizine 12.5 mg 3 times a day PRN Shortness of breath 11/10/2023 11/18/19 Assessment & Plan (11/17/2023 11:26 AM EDT): [...] or reach follow-up PCP appointment. Patient has FAMILY ASSISTANT but other than that, limited resources, limited [...] or reach follow-up PCP appointment. Patient has FAMILY ASSISTANT but other than that, limited resources, limited [...] or reach follow-up PCP appointment. Patient has FAMILY ASSISTANT but other than that, limited resources, limited [...] or reach follow-up PCP appointment. Patient has FAMILY ASSISTANT but other than that, limited resources, limited [...] is his baseline. He does see a group leader semiconductor testing outpatient, reports history of CKD. -Monitor daily; baseline creatinine appears to be between 1.6 and 1.8. -Resuming his diuretic, torsemide daily and monitor -Renally adjust medications Assessment & Plan (11/13/2023 12:44 PM EDT): Home Medications: Torsemide 20 mg daily. Cr on admission was 1.99. Appears from medical record, baseline is about 1.7- 1.8. He does see a group leader semiconductor testing outpatient, reports history of CKD. Creatinine initially [...] about 1.7- 1.8. He does see a group leader semiconductor testing outpatient, reports history of CKD. 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 Emergency Department [address] [place] [address] Alfredo Harper, Foot pain, right (Primary Dx); Chest pain, unspecified type Discharge Disposition: Home or Self Care () 05/17/2025 Telephone [facility] Emergency Department [address] [place] [address] Marylu Kaur RN 05/16/2025 10:00 AM EST - 05/17/2025 2:08 AM EST Emergency [facility] Emergency Department [address] [place] [address] Discharge Disposition: Left Without Being Seen () 05/13/2025 7:20 PM EST - 05/13/2025 9:10 PM EST Emergency [facility] Emergency Department [address] [place] [address] Jaime Delarosa MD Paronychia of great toe of right foot (Primary Dx) Discharge Disposition: Home or Self Care () 05/02/2025 Orders Only MRI [address] [address] Amanda Smith MD Other disorders of plasma-protein metabolism, not elsewhere classified 04/04/2025 Telephone [facility] 5th Floor [address] [place] [address] Shira Orozco MD 03/27/2025 2:00 PM EDT Lab [facility] ACC Draw Site Fifth Floor [address] [place] [address] Plasma cell dyscrasia 03/27/2025 1:30 PM EDT Follow-Up [facility] Building [facility] South 5th Floor [address] [place] [address] Shira Orozco MD Plasma cell dyscrasia (Primary Dx) from Last 3 Months Family History Medical History Relation Name Comments No Known Problems Brother No Known Problems Father No Known Problems Maternal Grandfather No Known Problems Maternal Grandmother No Known Problems Mother No Known Problems Other No Known Problems Paternal Grandfather No Known Problems Paternal Grandmother No Known Problems Sister Relation Name Status Comments Brother Father Maternal Grandfather Maternal Grandmother Mother Other Paternal Grandfather Paternal Grandmother Sister Social History Tobacco Use Types Packs/Day Years Used Date Smoking Tobacco: Former Cigarettes 0 Q uit: 1997 Tobacco Cessation:Counseling Given: Not Answered Alcohol Use Standard Drinks/Week Comments Never 0 (1 standard drink = 0.6 oz pur e alcohol) [facility] Utilities Answer Date Recorded In the past 12 months has e electric, gas, oil, or water company threatened to shut off services in your home? No 12/07/2024 Hunger Vital Sign Answer Date Recorded Within the past 12 months, y ou worried that your food would run out before you got the money to buy more. Never true 12/08/19 25 Within the past 12 months, t he food you bought just didn't last and you didn't have money to get more. Never true 12/07/2024 Transportation Answer Date Recorded In the past 12 months, has l ack of reliable transportation kept you from medical appointments, meetings, work or from getting things needed for daily living? No 12/07/2024 Housing Answer Date Recorded Housing Risk Low 2 12/07/2024 Housing Risk Medium Not on file 12/07/2024 Housing Risk High Not on file 12/07/2024 What is your living situation today? [facility] 12/07/2024 Sex and Gender Information Value Date Recorded Sex Assigned at Male 11/03/2023 9:51 PM EDT Legal Sex Male 11:46 AM EDT Gender Identity Male 11/03/2023 9:51 PM EDT Sexual Orientation Not on file Last Filed Vital Signs Vital Sign Reading Time Taken Comments Blood Pressure 172/76 06/08/2025 1:12 PM EST Pulse 84 06/08/2025 1:12 PM EST Temperature 36.7 C (98 F) 06/08/2025 7:48 AM EST Respiratory Rate 18 06/08/2025 1:12 PM EST Oxygen Saturation 99% 06/08/2025 1:00 PM EST Inhaled Oxygen Concentration - - Weight 84.4 kg (186 lb) 05/16/2025 10:17 AM EST Height 170.2 cm (5' 7 ) 05/16/2025 10:17 AM EST Body Mass Index 29.13 05/16/2025 10:17 AM EST Plan of Treatment Upcoming Encounters Date Type Department Care Team (Late st Contact Info) Description 09/25/2025 9:00 AM EDT Lab [facility] ACC Draw Site Fifth Floor [address] [place] [address] 09/25/2025 10:00 AM EDT Follow-Up [facility] Building [facility] South 5th Floor [address] [place] [address] Shira Orozco MD [address] [facility] Hematology/[place] [address] Health Maintenance Due Date Last Done Comments Cologuard 1974 Colonoscopy 1974 HIV Screening 1974 Ophthalmology Exam 1984 Hepatitis B Vaccines (1 of 3 - 19+ 3-dose series) 1993 DTaP,Tdap,and Td Vaccines (1 - Tdap) 06/26/2014 06/25/2014, 06/25/2014, 06/25/2014 Pneumococcal Vaccine: 50+ Ye ars (2 of 2 - PCV) 08/08/2021 08/08/2020 Zoster Vaccines (1 of 2) 2024 Alcohol/Substance Use Screening 07/04/2024 Depression Screening and Follow-Up 07/04/2024 Influenza Vaccine (#1) 2025 2, 04/10/2020, 04/26/2019, Additional history exists COVID-19 Vaccine (3 2024-2 6 season) 2025 11/05/2020, 10/15/2020 Hemoglobin A1C 03/11/2025 12/09/2024, 05/0 10/2023, 08/11/2023 [employer] Lissa ual Screening 12/07/2025 12/07/2024 FOBT / Fit Test 05/02/2026 05/02/2025, 12/02, 11/18/2023, Additional history exists Urine Microalbumin 05/02/2026 05/02/2025 Basic Metabolic Panel 06/08/2026 06/08/2025 , 05/02/2025, 03/27/2025, Additional history exists Colon Cancer Screening 11/17/2028 Sigmoidoscopy 11/17/2028 11/18/2023 Abdominal Aortic Aneurysm (A AA) Screening Completed 12/16/2024, 11/08/2023, 08/23/2023 Hepatitis C Screening Completed 12/16/2024 Procedures * Due to [place] state law, this organization might not be sharing negative HIV tests. Procedure Name Priority Date/Time Associated Diagnosis Comments TROPONIN T HIGH SENSITIVITY STAT 06/08/2025 12:10 PM EST XR CHEST 2 VW STAT 06/08/2025 10:14 AM EST TROPONIN T HIGH SENSITIVITY Timed 06/08/2025 9:39 AM EST TROPONIN T HIGH SENSITIVITY STAT 06/08/2025 7:47 AM EST COMPREHENSIVE METABOLIC PANEL STAT 06/08/2025 7:47 AM EST CBC AUTO DIFFERENTIAL STAT 06/08/2025 7:47 AM EST ECG 12-LEAD STAT 06/08/2025 6:51 AM EST POCT GLUCOSE Routine 05/16/2025 10:29 AM EST POCT GLUCOSE Routine 05/13/2025 8:57 PM EST IMMUNOFIXATION, SERUM Routine 03/27/2025 1:49 PM EDT Plasma cell dyscrasia FERRITIN Routine 03/27/2025 1:49 PM EDT Plasma cell dyscrasia IRON SATURATION Routine 03/27/2025 1:49 PM EDT Plasma cell dyscrasia IRON, TIBC AND FERRITIN PANEL (5616) Routine 03/27/2025 1:49 PM EDT Plasma cell dyscrasia CBC AUTO DIFFERENTIAL STAT 03/27/2025 1:49 PM EDT Plasma cell dyscrasia COMPREHENSIVE METABOLIC PANEL STAT 03/27/2025 1:49 PM EDT Plasma cell dyscrasia IMMUNOGLOBULINS PANEL (IGG, IGA, IGM) Routine 03/27/2025 1:49 PM EDT Plasma cell dyscrasia KAPPA & LAMBDA, FREE W/RATIO Routine 03/27/2025 1:49 PM EDT Plasma cell dyscrasia PROTEIN ELECTROPHORESIS W/REFLEX TO IMMUNOFIXATION, SERUM Routine 03/27/2025 1:49 PM EDT Plasma cell dyscrasia CT ANGIOGRAM ABDOMEN PELVIS W WO CONTRAST STAT 12/16/2024 4:50 PM EDT HEPATITIS C ANTIBODY W/REFLEX TO HCV RNA, QUANTITATIVE PCR STAT 12/16/2024 1:02 PM EDT HEMOGLOBIN A1C Routine 12/09/2024 7:02 AM EDT from Last 3 Months or Most Recently Relevant to Health Maintenance Results * Due to [place] state law, this organization might not be sharing negative HIV tests. * Troponin T, High Sensitivity (06/08/2025 12:10 PM EST) Only the most recent of3 resultswithin the time period is included. Troponin T High Sensitivity 12 <=21 ng/L 06/08/2025 12:33 PM EST [facility] Comment: Yq-Kepfsezn-K level of 52 ng/L or higher at 0-hour at presentation is recommended by the ESC 0/1-hour algorithm for identifying patients at high risk for ruling in acute myocardial infarction (AMI) in the appropriate clinical context. Repeat troponin testing 1-3 hours after the initial sample may be helpful in assessing for ongoing myocardial injury. Troponin elevations can be seen in several other non-infarct conditions, and the change (delta) should be evaluated in line with the 4th [place] Definition of AMI. Troponin baseline and serial elevation for a significant delta should be interpreted with clinical presentation, history, signs and symptoms, ECG, and biomarker concentrations. For inpatient setting: Value <12ng/L is considered negative for all genders. 0-1hr: A delta change of <3 will be considered negative/flat if chest pain onset >3 hours 0-3hr: A delta change of <7 will be considered negative/flat Blood Structure of peripheral vein / Unknown Venipuncture / Unknown 06/08/2025 12:10 PM EST 06/08/2025 12:10 PM EST us Alfredo Harper DO LAB BLOOD ORDERABLES Final Res ult [facility] [address] [place] [address], [place] * XR Chest 2 vw. Standard (06/08/2025 10:14 AM EST) Anatomical Region Laterality Modality Body Computed Radiogr aphy 06/08/2025 12:4 2 PM EST Impressions 06/08/2025 12:43 PM EST No acute abnormality in the chest. If this radiology report contains a blank impression section, it is an incomplete radiology report. Please contact the interpreting radiologist or applicable radiology division as soon as possible to obtain the completed interpretation. Workstation ID: [id number] Narrative 06/08/2025 12:43 PM EST COMPARISON: Chest CT and chest x-ray of 12/16/2024 FINDINGS: Lines/Tubes/Devices: Left chest wall subcutaneous implantable cardioverter defibrillator. Sternotomy wires and mediastinal clips likely related to prior CABG. Lungs: The lungs are well-aerated without consolidation or pulmonary edema. Bibasilar atelectasis. Pleura: No pleural effusion or pneumothorax. Heart and Mediastinum: The cardiac and mediastinal contours are normal. Bones: No acute osseous abnormality. Degenerative changes in the spine. Resulting Agency Comment [id number] Procedure Note Trinh Lau MD PhD - 06/08/2025 COMPARISON: Chest CT and chest x-ray of 12/16/2024 FINDINGS: Lines/Tubes/Devices: Left chest wall subcutaneous implantable cardioverterdefibrillator. Sternotomy wires and mediastinal clips likely related toprior CABG. Lungs: The lungs are well-aerated without consolidation or pulmonaryedema. Bibasilar atelectasis. Pleura: No pleural effusion or pneumothorax. Heart and Mediastinum: The cardiac and mediastinal contours are normal. Bones: No acute osseous abnormality. Degenerative changes in the spine. IMPRESSION: No acute abnormality in the chest. If this radiology report contains a blank impression section, it is anincomplete radiology report. Please contact the interpreting radiologistor applicable radiology division as soon as possible to obtain thecompleted interpretation. Workstation ID: [id number] Alfredo Harper DO IMG XR PROCEDURES Final Result * (ABNORMAL) CBC Auto Differential (06/08/2025 7:47 AM EST) Only the most recent of2 resultswithin the time period is included. WBC 10.3 3.8 - 10.8 10*3/uL 06/08/2025 7:50 AM EST [facility] RBC 3.93(L) 4.20 - 5.80 10*6/uL 06/08/2025 7:50 AM EST [facility] Hemoglobin 11.4(L) 13.2 - 17.1 g/dL 06/08/2025 7:50 AM EST [facility] Hematocrit 33.2(L) 38.5 - 50.0 % 06/08/2025 7:50 AM EST [facility] MCV 84.5 80.0 - 100.0 fL 06/08/2025 7:50 AM EST [facility] MCH 29.0 27.0 - 33.0 pg 06/08/2025 7:50 AM EST [facility] MCHC 34.3 32.0 - 36.0 g/dL 06/08/2025 7:50 AM EST [facility] RDW 12.1 11.0 - 15.0 % 06/08/2025 7:50 AM EST [facility] Platelets 273 140 - 400 10*3/uL 06/08/2025 7:50 AM EST [facility] MPV 10.2 7.5 - 12.5 fL 06/08/2025 7:50 AM EST [facility] Neutrophil % 69.2 % 06/08/2025 7:50 AM EST [facility] Immature Grans % 0.3 0.0 - 0.9 % 06/08/2025 7:50 AM EST [facility] Lymphocyte % 20.7 % 06/08/2025 7:50 AM EST [facility] Monocyte % 7.1 % 06/08/2025 7:50 AM EST [facility] Eosinophil % 2.3 % 06/08/2025 7:50 AM EST [facility] Basophil % 0.4 % 06/08/2025 7:50 AM EST [facility] Neutrophil # 7.16 1.50 - 7.80 10*3/uL 06/08/2025 7:50 AM EST [facility] Immature Grans # 0.03 <=0.03 10*3/uL 06/08/2025 7:50 AM EST [facility] Lymphocyte # 2.10 0.85 - 3.90 10*3/uL 06/08/2025 7:50 AM EST [facility] Monocyte # 0.70 0.20 - 0.95 10*3/uL 06/08/2025 7:50 AM EST [facility] Eosinophil # 0.20 0.02 - 0.50 10*3/uL 06/08/2025 7:50 AM EST [facility] Basophil # <0.03 0.00 - 0.20 10*3/uL 06/08/2025 7:50 AM EST [facility] nRBC % 0.0 /100 WBCs 06/08/2025 7:50 AM EST [facility] nRBC # <0.01 <0.01 10*3/uL 06/08/2025 7:50 AM EST [facility] Blood Structure of peripheral vein / Unknown Venipuncture / Unknown 06/08/2025 7:47 AM EST 06/08/2025 7:47 AM EST us Alfredo Harper DO LAB BLOOD ORDERABLES Final Res ult [facility] [address] [place] [address], * (ABNORMAL) Comprehensive Metabolic Panel (06/08/2025 7:47 AM EST) Only the most recent of2 resultswithin the time period is included. NA 138 135 - 145 mmol/L 06/08/2025 8:19 AM EST [facility] K 4.3 3.5 - 5.3 mmol/L 06/08/2025 8:19 AM [facility] Cl 103 97 - 110 mmol/L 06/08/2025 8:19 AM [facility] CO2 25 22 - 32 mmol/L 06/08/2025 8:19 AM [facility] Anion Gap 10 5 - 15 06/08/2025 8:19 AM [facility] Glucose 242(H) 65 - 99 mg/dL 06/08/2025 8:19 AM [facility] Creatinine 1.24 0.60 - 1.30 mg/dL 06/08/2025 8:19 AM [facility] Calcium 9.0 8.6 - 10.5 mg/dL 06/08/2025 8:19 AM [facility] Total Protein 7.7 6.0 - 8.0 g/dL 06/08/2025 8:19 AM [facility] Albumin 4.1 3.5 - 5.2 g/dL 06/08/2025 8:19 AM [facility] Bilirubin, Total <0.2(L) 0.2 - 1.2 mg/dL 06/08/2025 8:19 AM [facility] Alkaline Phosphatase 108 35 - 129 U/L 06/08/2025 8:19 AM [facility] AST 30 10 - 40 U/L 06/08/2025 8:19 AM [facility] ALT 21 10 - 40 U/L 06/08/2025 8:19 AM [facility] BUN 16 7 - 23 mg/dL 06/08/2025 8:19 AM [facility] eGFR 70 >=60 mL/min/1 .73m2 06/08/2025 8:19 AM [facility] Comment:The estimated glomer ular filtration rate (eGFR) is calculated using a new formula developed by the NKF-ASN task force to eliminate race-based correction factors. The new formula uses serum/plasma creatinine, age, and gender to determine eGFR. A value below 60mls/min might indicate kidney disease and will be flagged. For additional information, see Jimmie et al, Am J Kidney Dis. 2021;79(2):268- 288, A Unifying Approach for GFR estimation: Recommendations of the NKF-ASN Task Force on Reassessing the Inclusion of Race in Diagnosing Kidney Disease . Globulin, Total 3.6 2.1 - 4.2 g/dL 06/08/2025 8:19 AM EST [facility] A/G Ratio 1.1(L) 1.5 - 3.0 06/08/2025 8:19 AM EST [facility] Blood Structure of peripheral vein / Unknown Venipuncture / Unknown 06/08/2025 7:47 AM EST 06/08/2025 7:47 AM EST us Alfredo Harper DO LAB BLOOD ORDERABLES Final Res ult [facility] [address] [place] [address], * ECG 12 lead (06/08/2025 6:51 AM EST) Ventricular Rate EKG 84 BPM MUSE EKG Atrial Rate 84 BPM MUSE EKG ID Interval 178 ms MUSE EKG QRS Interval 80 ms MUSE EKG QT Interval 398 ms MUSE EKG QTC Interval 470 ms MUSE EKG P Roxton 40 degrees MUSE EKG R Roxton -3 degrees MUSE EKG T Wave Roxton 90 degrees MUSE EKG 06/08/2025 6:51 AM EST 06/13/2025 12:22 PM EST Impressions MUSE EKG - 06/13/2025 12:22 PM EST Normal sinus rhythm Inferior infarct (cited 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) Abnormal ECG When compared with ECG of 16-Dec-2024 12:23, No significant change was found Confirmed by Kentrell May ([id number]) on 06/13/2025 12:22:41 PM Narrative Procedure Note Kentrell May MD - 06/13/2025 IMPRESSION: Normal sinus rhythm Inferior infarct (cited 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 [facility] Glucose, POCT 314(H) 70 - 99 mg/dL 05/16/2025 10:30 AM EST [facility] Comment: The special assets officer has not determined the efficacy of this test in Critically ill patients. [facility] defines Critically ill patients for the purpose of blood glucose monitoring (BGM) by glucometer, as patients meeting one or more of the following criteria: Hypotension- non-ICU patients (systolic blood pressure Less than 90 mmHg) due to shock Hypotension -ICU patients (Mean Arterial Pressure (MAP) <60 mmHg or systolic blood pressure < 90 mmHg due to shock Patients receiving Vasopressors (phenylephrine, vasopressin or norepinephrine) Anasarca In all locations, BGM test results should not be relied upon in the above situations, unless these results confirmed with lab-based glucose values. Blood 05/16/2025 10:2 9 AM EST 05/16/2025 10:30 AM EST us Doctor Unknown LAB POCT ORDERABLES - DEVICE Fin al Result [facility] [address] [place] [address], [place] * Immunofixation, Serum (03/27/2025 1:49 PM EDT) Immunofixation, Serum, Interpretation See Comments 04/04/2025 8:12 AM EDT [facility] Comment: IgG kappa monoclonal band present. Blood Structure of peripheral vein / Unknown Venipuncture / Unknown 03/27/2025 1:49 PM EDT 03/27/2025 1:59 PM EDT Narrative [facility] - 04/04/2025 8:12 AM EDT [facility] Received Date: us Amanda Smith MD LAB BLOOD ORDERABLES Final Resu lt [facility] [address] [facility] [address], [place] [address], [facility] [address] [facility] 3rd Floor, [place] [address], * (ABNORMAL) Orrtanna & Lambda, Free w/Ratio (03/27/2025 1:49 PM EDT) Pathologist [facility] Orrtanna Light Chain, Free, Serum 54.8(H) 3.3 - 19.4 mg/L 03/28/2025 1:26 PM EDT [facility] Lambda Light Chain, Free, Serum 20.0 5.7 - 26.3 mg/L 03/28/2025 1:26 PM EDT [facility] Orrtanna/Lambda Light Chains Free With Ratio 2.74(H) 0.26 - 1.65 03/28/2025 1:26 PM EDT [facility] Comment: Free kappa/lambda ratio in serum of normal individuals is 0.26-1.65. Excess production of free kappa or lambda chains can alter this ratio. Monoclonal free light chains are found in serum of patients with multiple myeloma, Waldenstrom's macroglobulinemia, mu-heavy chain disease, primary amyloidosis, light chain deposition disease, monoclonal gammopathy of undetermined significance, and lymphoproliferative disorders. Measurement of free light chain concentration in serum is useful for diagnosis, prognosis, monitoring disease activity and following response to therapy of these disorders. Blood Structure of peripheral vein / Unknown Venipuncture / Unknown 03/27/2025 1:49 PM EDT 03/27/2025 1:59 PM EDT Narrative [facility] - 03/28/2025 1:26 PM EDT [facility] Received Date: us Amanda Smith MD LAB BLOOD ORDERABLES Final Resu lt [facility] [address] [facility] [address], [place] [address], [facility] [address] [facility] [address]rd Floor, [place] [address], * (ABNORMAL) Protein Electrophoresis w/Reflex to Immunofixation, Serum (03/27/2025 1:49 PM EDT) Protein, Total 7.3 6.1 - 8.1 g/dL 04/01/2025 6:35 PM EDT [facility] Albumin 4.3 3.8 - 4.8 g/dL 04/01/2025 6:35 PM EDT [facility] Alpha 1 Globulin 0.3 0.2 - 0.3 g/dL 04/01/2025 6:35 PM EDT [facility] Alpha 2 Globulin 0.7 0.5 - 0.9 g/dL 04/01/2025 6:35 PM EDT [facility] Beta 1 Globulin 0.4 0.4 - 0.6 g/dL 04/01/2025 6:35 PM EDT [facility] Beta 2 Globulin 0.6(H) 0.2 - 0.5 g/dL 04/01/2025 6:35 PM EDT [facility] Gamma Globulin 1.1 0.8 - 1.7 g/dL 04/01/2025 6:35 PM EDT [facility] Abnormal Protein Band 1 0.3(H) NONE DETECTED g/dL 04/01/2025 6:35 PM EDT [facility] Interpretation See Comments 04/01/2025 6:35 PM EDT [facility] Comment: Evaluation reveals a restricted band (M-spike) migrating in the gamma globulin region. If not already requested, Immunofixation should be considered. Blood Structure of peripheral vein / Unknown Venipuncture / Unknown 03/27/2025 1:49 PM EDT 03/27/2025 1:59 PM EDT Narrative [facility] - 04/01/2025 6:35 PM EDT [facility] Received Date: Amanda Smith MD LAB BLOOD ORDERABLES Final Resu lt Performing Organization Address City/[facility] [address]/ZIP Co de Phone Number [facility] [address] [facility] [address], [place] [address], [place] [phone] [facility] [address], [place] [address], [place] [phone] * (ABNORMAL) Iron Saturation (03/27/2025 1:49 PM EDT) Iron Saturation 33 20 - 50 % 3:40 PM EDT [facility] Iron 82 45 - 160 ug/dL 03/27/2025 3:40 PM EDT [facility] Transferrin 201 200 - 360 mg/dL 03/27/2025 3:40 PM EDT [facility] Total Iron Binding Capacity 251(L) 255 - 450 ug/dL 03/27/2025 3:40 PM EDT [facility] Blood Structure of peripheral vein / Unknown Venipuncture / Unknown 03/27/2025 1:49 PM EDT 03/27/2025 2:00 PM EDT Amanda Smith MD LAB BLOOD ORDERABLES Final Resu lt [email or web address] [address] [place] [address], [place] * (ABNORMAL) Immunoglobulins Panel (IgG, IgA, IgM) (03/27/2025 1:49 PM EDT) Immunoglobulin A 349(H) 47 - 310 mg/dL 03/27/2025 8:26 PM EDT [facility] IgG, Serum 1340 600 - 1640 mg/dL 03/27/2025 8:26 PM EDT [facility] Immunoglobulin M 63 50 - 300 mg/dL 03/27/2025 8:26 PM EDT [facility] Blood Structure of peripheral vein / Unknown Venipuncture / Unknown 03/27/2025 1:49 PM EDT 03/27/2025 1:59 PM EDT Narrative [facility] - 03/27/2025 8:26 PM EDT [facility] Received Date:[id number] us Amanda Smith MD LAB BLOOD ORDERABLES Final Resu lt [facility] [address] [facility] [address], [place] [address], [place] [phone] [facility] [address] [facility] 3rd Floor, [place] [address], [place] [phone] * Ferritin (03/27/2025 1:49 PM EDT) Ferritin 206.0 23.0 - 336.0 ng/mL 03/27/2025 3:40 PM EDT [facility] Blood Structure of peripheral vein / Unknown Venipuncture / Unknown 03/27/2025 1:49 PM EDT 03/27/2025 2:00 PM EDT us Amanda Smith MD LAB BLOOD ORDERABLES Final Resu lt [facility] [address] [place] [address], [place] * CT Angiogram Abdomen Pelvis W WO Contrast (12/16/2024 4:50 PM EDT) Anatomical Region Laterality Modality Body Computed Tomogra phy 12/16/2024 4:51 PM EDT Impressions 12/16/2024 8:07 PM EDT 1. No evidence of acute aortic syndrome. 2. 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 Narrowing at the origin of the celiac axis may be secondary to median arcuate ligament syndrome. 3. Mild mural thickening of the urinary bladder and mild adjacent fat stranding. Correlate with urinalysis to exclude cystitis. IKathi, have reviewed the examination and concur with the findings as reported or so edited. Trainee: Salvador Castro If this radiology report contains a blank impression section, it is an incomplete radiology report. Please contact the interpreting radiologist or applicable radiology division as soon as possible to obtain the completed interpretation. Workstation ID: [id number] Up-to-date CT equipment and radiation dose reduction techniques were employed. CTDIvol: 9.2 - 17.8 mGy. DLP: 1274 mGy-cm. Narrative 12/16/2024 8:07 PM EDT EXAMINATION: CT Angiogram of the Chest, Abdomen, and Pelvis. INDICATION: Aortic dissection suspected. TECHNIQUE: CT angiography was performed per CTA protocol. Oral contrast was not administered. Timed acquisition, prior to and following injection of intravenous contrast was performed. Coronal and sagittal reconstructions were made. Additional 3 dimensional volume rendered images were reconstructed. COMPARISON: CT abdomen pelvis 11/08/2023.. FINDINGS: Vasculature: The thoracoabdominal aorta is normal in caliber without evidence of dissection . No intramural hematoma. Common origin of the brachiocephalic and left common carotid arteries. Calcified and noncalcified atheromatous plaque at the origin of the left subclavian artery results in mild stenosis. Mild to moderate narrowing at the origin of the celiac artery with poststenotic dilation. Calcified noncalcified atheromatous plaque throughout the SMA resulting in multifocal narrowing. The TWYLA is maintained. Both renal arteries are maintained. Again demonstrated is near complete occlusive thrombus of the right common iliac artery. Multifocal calcified and noncalcified atheromatous plaque throughout the remainder of both external iliac arteries and common femoral arteries. Base of the neck: The thyroid gland is unremarkable. The included portions of the lower neck show no evidence of mass or lymphadenopathy. Lungs/Pleura: The central airways are patent. Bandlike atelectasis in the left lower lobe, otherwise clear lungs. Mild apical predominant centrilobular and paraseptal emphysema. Right lower lobe fissural pulmonary nodule measuring 3 mm, likely a benign intrapulmonary lymph node. Trace left pleural effusion. No right pleural effusion. No pneumothorax.. Mediastinum: Mild cardiomegaly. Coronary arterial calcifications. Prior CABG. Pulmonary arteries are unremarkable. There is no axillary, mediastinal, or hilar lymphadenopathy. Hepatobiliary: No focal hepatic lesions. No biliary ductal dilatation. Surgically absent gallbladder. There is mild prominence of the central intrahepatic and extrahepatic biliary tree, commonly seen in the postcholecystectomy setting.. Spleen: No splenomegaly. Pancreas: No inflammation or ductal dilatation. Adrenals: No adrenal nodules. Kidneys/Ureters: Symmetric renal enhancement. No hydronephrosis, calculi, or solid mass lesions. Bilateral renal cortical scarring, worse in the upper pole left kidney. Pelvic organs/Bladder: Mild mural thickening of the urinary bladder with mild adjacent fat stranding. Vas deferens calcifications may be seen in the setting of diabetes. Peritoneum/Retroperitoneum: No free air or fluid. Lymph nodes: No lymphadenopathy. GI Tract: Small hiatal hernia. No distention or wall thickening. Normal appendix. Sigmoid diverticulosis without evidence of diverticulitis. Bones and Soft Tissues: Multilevel degenerative changes throughout the spine. No acute fracture. No suspicious osseous lesions. Soft tissues are unremarkable. Bilateral gynecomastia. External pacemaker device in the left lateral chest wall, with lead terminating in the medial left pectoralis muscle. Resulting Agency Comment [id number] Procedure Note Kathi Garcia MD - 12/16/2024 EXAMINATION: CT Angiogram of the Chest, Abdomen, and Pelvis. INDICATION: Aortic dissection suspected. TECHNIQUE: CT angiography was performed per CTA protocol. Oral contrast was notadministered. Timed acquisition, prior to and following injection ofintravenous contrast was performed. Coronal and sagittal reconstructionswere made. Additional 3 dimensional volume rendered images werereconstructed. COMPARISON: CT abdomen pelvis 11/08/2023.. FINDINGS: Vasculature: The thoracoabdominal aorta is normal in caliber withoutevidence of dissection . No intramural hematoma. Common origin of thebrachiocephalic and left common carotid arteries. Calcified andnoncalcified atheromatous plaque at the origin of the left subclavianartery results in mild stenosis. Mild to moderate narrowing at the originof the celiac artery with poststenotic dilation. Calcified noncalcifiedatheromatous plaque throughout the SMA resulting in multifocal narrowing.The TWYLA is maintained. Both renal arteries are maintained. Againdemonstrated is near complete occlusive thrombus of the right common iliacartery. Multifocal calcified and noncalcified atheromatous plaquethroughout the remainder of both external iliac arteries and commonfemoral arteries. Base of the neck: The thyroid gland is unremarkable. The included portionsof the lower neck show no evidence of mass or lymphadenopathy. Lungs/Pleura: The central airways are patent. Bandlike atelectasis in theleft lower lobe, otherwise clear lungs. Mild apical predominantcentrilobular and paraseptal emphysema. Right lower lobe fissuralpulmonary nodule measuring 3 mm, likely a benign intrapulmonary lymphnode. Trace left pleural effusion. No right pleural effusion. Nopneumothorax.. Mediastinum: Mild cardiomegaly. Coronary arterial calcifications. PriorCABG. Pulmonary arteries are unremarkable. There is no axillary,mediastinal, or hilar lymphadenopathy. Hepatobiliary: No focal hepatic lesions. No biliary ductal dilatation.Surgically absent gallbladder. There is mild prominence of the centralintrahepatic and extrahepatic biliary tree, commonly seen in thepostcholecystectomy setting.. Spleen: No splenomegaly. Pancreas: No inflammation or ductal dilatation. Adrenals: No adrenal nodules. Kidneys/Ureters: Symmetric renal enhancement. No hydronephrosis, calculi,or solid mass lesions. Bilateral renal cortical scarring, worse in theupper pole left kidney. Pelvic organs/Bladder: Mild mural thickening of the urinary bladder withmild adjacent fat stranding. Vas deferens calcifications may be seen inthe setting of diabetes. Peritoneum/Retroperitoneum: No free air or fluid. Lymph nodes: No lymphadenopathy. GI Tract: Small hiatal hernia. No distention or wall thickening. Normalappendix. Sigmoid diverticulosis without evidence of diverticulitis. Bones and Soft Tissues: Multilevel degenerative changes throughout thespine. No acute fracture. No suspicious osseous lesions. Soft tissues areunremarkable. Bilateral gynecomastia. External pacemaker device in theleft lateral chest wall, with lead terminating in the medial leftpectoralis muscle. IMPRESSION: 1. No evidence of acute aortic syndrome. 2. Unchanged extensive calcified and noncalcified atheroscleroticvascular disease as above, including near complete occlusion of the rightcommon iliac artery. Narrowing at the origin of the celiac axis may besecondary to median arcuate ligament syndrome. 3. Mild mural thickening of the urinary bladder and mild adjacent fatstranding. Correlate with urinalysis to exclude cystitis. I, Kathi Garcia, have reviewed the examination and concur with the findingsas reported or so edited. Trainee: Salvador Castro If this radiology report contains a blank impression section, it is anincomplete radiology report. Please contact the interpreting radiologistor applicable radiology division as soon as possible to obtain thecompleted interpretation. Workstation ID: [id number] Up-to-date CT equipment and radiation dose reduction techniques wereemployed. CTDIvol: 9.2 - 17.8 mGy. DLP: 1274 mGy-cm. Nikko Howe MD IMG CT PROCEDURES Final Res ult * Hepatitis C Antibody w/Reflex to HCV RNA, Quantitative PCR (12/16/2024 1:02 PM EDT) Hepatitis C Antibody NON-REACT REKHA NON-REACT REKHA 12/17/2024 10:28 PM EDT [facility] Comment: HCV antibody was non-reactive. There is no laboratory evidence of HCV infection. In most cases, no further action is required. However, if recent HCV exposure is suspected, a test for HCV RNA (test code 46998) is suggested. For additional information please refer to http://education.Zjdg.cn.[employer]/faq/RGM86h0 (This link is being provided for informational/ educational purposes only.) Blood Structure of peripheral vein / Unknown Venipuncture / Unknown 12/16/2024 1:02 PM EDT 12/16/2024 1:05 PM EDT Narrative [facility] - 12/17/2024 10:28 PM EDT [facility] Received Date:[id number] us Nikko Howe MD LAB BLOOD ORDERABLES Final Result [facility] [address] [facility] [address], [place] [address], [facility] [address], [place] [address], * (ABNORMAL) Hemoglobin A1c (12/09/2024 7:02 AM EDT) Hemoglobin A1C 12.5(H) <5.7 % 12/09/2024 7:52 PM EDT [facility] Comment: For someone without known diabetes, a hemoglobin A1c value of 6.5% or greater indicates that they may have diabetes and this should be confirmed with a follow-up test. For someone with known diabetes, a value <7% indicates that their diabetes is well controlled and a value greater than or equal to 7% indicates suboptimal control. A1c targets should be individualized based on duration of diabetes, age, comorbid conditions, and other considerations. Currently, no consensus exists regarding use of hemoglobin A1c for diagnosis of diabetes for children. eAG (MG/DL) 312 mg/dL 12/09/2024 7:52 PM EDT [facility] eAG (MMOL/L) 17.3 mmol/L 12/09/2024 7:52 PM EDT [facility] Blood Structure of peripheral vein / Unknown Venipuncture / Unknown 12/09/2024 7:02 AM EDT 12/09/2024 7:13 AM EDT [facility] - 12/09/2024 7:52 PM EDT [facility] Received Date: Dora Park MD LAB BLOOD ORDERABLES Final Result [facility] [address] [facility] [address], [place] [address], [place] [phone] [facility] [address] [facility] [address], [place] [address], [place] [phone] from Last 3 Months or Most Recently Relevant to Health Maintenance Insurance [facility] MEDICAID [facility] MEDICAID Advance Directives Documents on File Type Date Recorded 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 Ironer Expl 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 Health Care Proxy 11/07/2023 7:22 AM 2023 * Full Code (Latest Code Status on File) Date Activated Date Inactivated Comments 12/07/2024 5:25 AM 12/10/2024 7:18 PM * Presumed Full Code Date Activated Date Inactivated Comments 01/18/2024 10:50 AM 01/19/2024 2:48 AM * Full Code Date Activated Date Inactivated Comments 11/04/2023 11:18 PM 11/18/2023 4:26 PM * Presumed Full Code Date Activated Date Inactivated Comments 11/04/2023 9:32 PM 11/04/2023 11:18 PM * Presumed Full Code Date Activated Date Inactivated Comments 11/04/2023 9:25 PM 11/04/2023 9:32 PM Care Teams C++ Professor Relationship Specialty Start Date End Date Guido Burch III, MD [address] [place] [id number] PCP - General Internal Medicine 11/03/23
--- OUTSIDE RECORDS SUMMARY | 2025-06-17 17:54 | XMS_ITS | Encounter Summary ---
Author Organization [facility] Address [address] [place] [address] Care Team Providers Care Contour Path Tape Mill Operator Name Role Phone Marcin QUINTERO MD, Guido Molina Primary Care Provider [phone] Encounter Details Date Type Department Care Team (Late st Contact Info) Description 01/18/[address] [address] Khadijah Suresh PA [address] [place] [address] [place] [address] Social History Tobacco Use Types Packs/Day Years Used Date Smoking Tobacco: Every Day Cigarettes Alcohol Use Standard Drinks/Week Comments Not Currently 0 (1 standard drink = 0.6 oz pur e alcohol) Sex and Gender Information Value Date Recorded Sex Assigned at Male 11/03/2023 9:51 PM EDT Legal Sex Male 11:46 AM EDT Gender Identity Male 11/03/2023 9:51 PM EDT Sexual Orientation Not on file documented as of this encounter Plan of Treatment Upcoming Encounters Date Type Department Care Team (Late st Contact Info) Description 09/25/2025 9:00 AM EDT Lab [facility] ACC Draw Site Fifth Floor [address] [place] [address] 09/25/2025 10:00 AM EDT Follow-Up [facility] ACC Building Cancer Clinic South 5th Floor [address] [place] [address] Shira Orozco MD 55 [facility] Hematology/Oncology [place], [place] [phone] documented as of this encounter Visit Diagnoses Not on filedocumented in this encounter Additional Health Concerns Infection Onset Date Last Indicated Resolved Time C. diff colonization 11/09/2023 11/09/2023 024 10:32 PM EDT R/O Respiratory Virus Infection 12/07/2024 12/07/2024 5:30 AM EDT R/O Influenza 12/07/2024 12/07/2024 12/07/2024 5:3 0 AM EDT COVID-19 - Suspected infection 12/07/2024 12/07/2024 12/07/2024 5:30 AM EDT documented as of this encounter Care Teams Contour Path Tape Mill Operator Relationship Specialty Start Date End Date Guido Burch III, MD [address] [place] [id number] PCP - General Internal Medicine 11/03/23 documented as of this encounter
--- OUTSIDE RECORDS SUMMARY | 2025-06-17 17:54 | XMS_ITS ---
Author Name [facility] Organization Unknown Care Team Organization Name Specialty Phone Email Start Date End Da te [facility] CESAR SAUNDRA Primary Care 05/11/2022 4
--- OUTSIDE RECORDS SUMMARY | 2025-06-17 17:54 | XMS_ITS | Encounter Summary ---
Author Organization [facility] Address [address] [place] [address] Care Team Providers Care Director Engineering Name Role Phone Guido Burch MD Primary Care Provider [phone] Encounter Details Date Type Department Care Team (Late st Contact Info) Description 05/09/2025 Results Follow-Up Adult Medicine [address] [phone] Guido Burch MD [address] [place] [address] Social History Tobacco Use Types Packs/Day Years [...] care for your loved ones. For example, director child development center or elderly care for an older adult? [...] Info) Description 06/21/2025 9:45 AM EST Appointment [facility] Ultrasound [address] [place] [phone] 06/25/2025 10:30 AM EST Hospital Encounter [facility] Cardiac Talent Acquisition Operations Manager [address] [place] [phone] Hawk Pat MD [address] [place] [phone] PAD (peripheral artery disease) ([facility] V24); Critical limb ischemia of right lower extremity (CMS/HCC V24, CMS/HCC V28) 06/25/2025 10:30 AM EST - 06/25/2025 11:30 AM EST Surgery [facility] Cardiac Talent Acquisition Operations Manager [address] [place] [phone] Hawk Pat MD [address] [place] [phone] Angiography right lower extremity [71914 (CPT )] 07/18/2025 9:00 AM EST Office Visit Orthopedic Surgery - [place] [address] [facility] [address] [place] [phone] Jeet Yang DPM [address] [phone] 07/23/2025 10:35 AM EST Office Visit Pulmonology - [place] 175 [facility] [address] [place] [phone] Klaudia Sow, TATE [address] [place] [phone] 08/06/2025 11:00 AM EST Office Visit Adult Medicine [address] [phone] Guido Burch MD [address] [place] [address] 08/22/2025 9:45 AM EST Office Visit Endocrinology [address] [phone] Ines Torres PA [address] [place] [address] 10/11/2025 11:00 AM EDT Office Visit Adult [address] [phone] Guido Burch MD [address] [place] [address] documented as of this encounter Visit Diagnoses Not on filedocumented in this encounter Additional Health Concerns Assessment Noted Time PHQ-9 Depression Total Score: 21 025 6:49 AM EDT documented as of this encounter Care Teams Director Engineering Relationship Specialty Start Date End Date Guido Burch MD [address] [place] [address] PCP - General Internal Medicine 11/07/24 documented as of this encounter
--- OUTSIDE RECORDS SUMMARY | 2025-06-17 17:54 | XMS_ITS | Encounter Summary ---
Author Organization [facility] Address [address] [place] [address] Care Team Providers Care Agile Java Developer Name Role Phone Guido Burch MD Primary Care Provider [phone] Reason for Visit * Reason Onset Date Comments Procedure 06/12/2025 Encounter Details Date Type Department Care Team (Late st Contact Info) Description 06/12/2025 Telephone Vascular Surgery - [place] [address] [place] [address] Hawk Pat MD [address] [place] [phone] Social History Tobacco Use Types Packs/Day Years Used Date Smoking Tobacco: Former Cigarettes 1 30 1 08/07/1988 - 2018 Smokeless Tobacco: Never Alcohol Use Standard Drinks/Week [...] care for your loved ones. For example, children's ministry director or elderly care for an older adult? [...] as of this encounter Progress Notes * Iza Chatman - 06/12/2025 10:44 AM EST Spoke with kourtney Bower caregiver all set with scheduling procedure on 06/25, * Iza Chatman - 06/12/2025 10:27 AM EST Called [facility] for patient to cb. Angiogram scheduled for 06/25 ARRIVAL TIME 9:30. Left my direct number, in the event patient calls main line please transfer call if any further questions. Any clinical questions to be transferred to clinical staff. documented in this encounter Plan of Treatment Upcoming Encounters Date Type Department Care Team (Late st Contact Info) Description 06/21/2025 9:45 AM EST Appointment [facility] Ultrasound [address] [place] [phone] 06/25/2025 10:30 AM EST Hospital Encounter [facility] Cardiac Soaker [address] [place] [phone] Hawk Pat MD [address] [place] [phone] PAD (peripheral artery disease) (CMS/HCC V24); Critical limb ischemia of right lower extremity (CMS/HCC V24, CMS/HCC V28) 06/25/2025 10:30 AM EST - 06/25/2025 11:30 AM EST Surgery [facility] Cardiac Soaker [address] [place] [phone] Hawk Pat MD [address] [place] [phone] Angiography right lower extremity [12495 (CPT )] 07/18/2025 9:00 AM EST Office Visit Orthopedic Surgery - [place] [address] [facility] [address] [place] [phone] Jeet Yang DPM 175 [facility] [address] [place] [phone] 07/23/2025 10:35 AM EST Office Visit Pulmonology - [place] 175 [facility] 200 [place] [phone] Klaudia Sow NP [address] [place] [phone] 08/06/2025 11:00 AM EST Office Visit Adult Medicine [address] [place] [phone] Guido Burch MD [address] [place] [address] 08/22/2025 9:45 AM EST Office Visit Endocrinology [address] [phone] Ines Torres PA [address] [place] [address] 10/11/2025 11:00 AM EDT Office Visit Adult Medicine [address] [phone] Guido Burch MD [address] [place] [address] documented as of this encounter Visit Diagnoses Not on filedocumented in this encounter Additional Health Concerns Assessment Noted Time PHQ-9 Depression Total Score: 21 025 6:49 AM EDT documented as of this encounter Care Teams Agile Java Developer Relationship Specialty Start Date End Date Guido Burch MD [address] [place] [address] PCP - General Internal Medicine 11/07/24 documented as of this encounter
== END 2025-06-17 13:31 | disposition home or self-care (01) ==
LOC: HO.HCS 12:23
PROVIDERS: PCP Internal Medicine; Visit Provider Nurse Practitioner Family
DX: I50.22 Chronic systolic (congestive) heart failure (principal); I25.10 Atherosclerotic heart disease of native coronary artery without angina pectoris; N18.9 Chronic kidney disease, unspecified; Z95.1 Presence of aortocoronary bypass graft; Z95.810 Presence of automatic (implantable) cardiac defibrillator; I12.9 Hypertensive chronic kidney disease with stage 1 through stage 4 chronic kidney disease, or unspecified chronic kidney disease; E78.5 Hyperlipidemia, unspecified; I25.5 Ischemic cardiomyopathy
CPT/HCPCS: 93289; 99214

== ENCOUNTER → 2025-06-17 12:23 | Outpatient (BNVA) | payer OTHER, SELFPAY | PROVIDERS: PCP Internal Medicine; Visit Provider Nurse Practitioner Family | DX: I11.0 Hypertensive heart disease with heart failure (principal); I50.22 Chronic systolic (congestive) heart failure; I25.10 Atherosclerotic heart disease of native coronary artery without angina pectoris; E78.5 Hyperlipidemia, unspecified; I25.5 Ischemic cardiomyopathy; Z95.1 Presence of aortocoronary bypass graft; Z95.810 Presence of automatic (implantable) cardiac defibrillator | CPT/HCPCS: 93289; 99212 ==